=== PATIENT | female | born 1945 | race Caucasian/White ===

== ENCOUNTER → 2019-08-21 15:05 | Outpatient (BNVA) | payer MEDICARE, SELFPAY | PROVIDERS: PCP Family Medicine; Visit Provider Family Medicine | DX: F32.1 Major depressive disorder, single episode, moderate (principal); E11.9 Type 2 diabetes mellitus without complications; I10 Essential (primary) hypertension; F41.9 Anxiety disorder, unspecified | CPT/HCPCS: 80053; 80061; 83036; 84443; 85025 ==

== ENCOUNTER → 2019-12-25 11:34 | Outpatient (BNVA) | payer MEDICARE, SELFPAY | PROVIDERS: PCP Family Medicine; Visit Provider Family Medicine | DX: E78.5 Hyperlipidemia, unspecified (principal); I10 Essential (primary) hypertension; E11.9 Type 2 diabetes mellitus without complications | CPT/HCPCS: 80053; 80061; 83036; 84443; 85025 ==

== ENCOUNTER 2020-02-18 13:33 | Outpatient (CLI) | payer MEDICARE, SELFPAY | END 2020-02-18 13:34 | disposition home or self-care (01) | LOC: WOUND 13:36 | PROVIDERS: PCP Family Medicine; Visit Provider Thoracic Surgery (Cardiothoracic Vascular Surgery) | DX: E11.621 Type 2 diabetes mellitus with foot ulcer (principal); L97.429 Non-pressure chronic ulcer of left heel and midfoot with unspecified severity | CPT/HCPCS: 99203; G0463; L3260; L4397 ==

== ENCOUNTER 2020-02-25 09:20 | Outpatient (CLI) | payer MEDICARE, SELFPAY ==
--- NOTE | 2020-02-25 09:30 | USCV_ITS ---
Elizabeth Lima Age: 74 Gender: F : 1945 Exam Date: 02/25/2020 10:06 Ordering Phys: Rolan Spain MD (Andy) ([email or web address]) Technologist: Aide Laurent Exam Location: [facility] [place] Indication: pain, redness, non healing ulcer Risk Factors: Previous Vascular Surgery: RIGHT LEFT BP: 187.0 / BP: 157.0/ 0 0 Waveform Velocity (cm/s) Velocity (cm/s) Waveform Triphasic 93.1 Iliac Prox 144.0 Triphasic Triphasic 79.7 Iliac Mid 176.2 Triphasic Triphasic 94.2 Iliac Distal 157.8 Triphasic Triphasic 124.9 HANDICRAFT OR HOBBY SHOP MANAGER 129.5 Triphasic Triphasic 70.9 SFA Prox 154.7 Triphasic Triphasic 323.4 SFA Mid 115.0 Triphasic Biphasic 66.7 SFA Dist 76.0 Triphasic Biphasic 51.8 POP 53.2 Triphasic Monophasic 15.0 SLATE SPLITTING SUPERVISOR N/A Monophasic 21.8 DPA 48.9 Monophasic 0.1 JUAN 0.3 FINDINGS Abnormal resting ABIs bilaterally No Doppler flow signals in the left posterior tibial artery. Elevated velocity at the level of the mid SFA on the right side, suggestive of greater than 70% stenosis Moderate to heavy heterogeneous plaques in the iliac and femoral arteries bilaterally CONCLUSIONS Abnormal resting ABIs bilaterally, consistent with the severe obstructive arterial disease bilaterally, in the range of resting claudication. Features of high-grade stenosis of greater than 70% at the level of the right mid SFA Features of total occlusion of the posterior tibial artery on the left side Dr Tanna Dickson MD [facility] (Electronically Signed) Final Date: 26 February 2020 08:45 S
--- NOTE | 2020-02-25 09:30 | XRR_ITS ---
PROCEDURE INFORMATION: Exam: XR Left Foot Complete Exam date and time: 02/25/2020 9:47 AM Age: 74 years old Clinical indication: Condition or disease; Other: Non healing ulcer; Additional info: Pain/redness/non healing ulcer/attn: Calcaneous TECHNIQUE: Imaging protocol: XR Left foot. Views: 3 or more views. COMPARISON: No relevant prior studies available. FINDINGS: Bones/joints: Hindfoot -midfoot and midfoot-forefoot articulations normal. Metatarsals and phalanges without an acute process. Subtalar and tibiotalar joint normal. degenerative changes at the first metatarsal phalangeal joint. Spur formation at the insertion of the Achilles' tendon and plantar aponeurosis. Soft tissues: Normal. XR/XR foot LT min 3V* [id number] IMPRESSION: 1. No discrete evidence of osteomyelitis. Consider MRI if indicated. 2. Spur formation at the insertion of the Achilles' tendon and plantar aponeurosis.
== END 2020-02-25 09:21 | disposition home or self-care (01) ==
LOC: RAD 09:24
PROVIDERS: PCP Family Medicine; Visit Provider Thoracic Surgery (Cardiothoracic Vascular Surgery)
DX: M79.672 Pain in left foot (principal); L97.529 Non-pressure chronic ulcer of other part of left foot with unspecified severity
CPT/HCPCS: 73630; 93925

== ENCOUNTER 2020-02-25 13:46 | Outpatient (CLI) | payer MEDICARE, SELFPAY | END 2020-02-25 13:47 | disposition home or self-care (01) | LOC: WOUND 13:47 | PROVIDERS: PCP Family Medicine; Visit Provider Thoracic Surgery (Cardiothoracic Vascular Surgery) | DX: E11.621 Type 2 diabetes mellitus with foot ulcer (principal); L97.422 Non-pressure chronic ulcer of left heel and midfoot with fat layer exposed; M79.672 Pain in left foot; L97.529 Non-pressure chronic ulcer of other part of left foot with unspecified severity | CPT/HCPCS: 73630; 93925; L2999 ==

== ENCOUNTER 2020-03-03 10:38 | Outpatient (CLI) | payer MEDICARE, SELFPAY | END 2020-03-03 10:39 | disposition home or self-care (01) | LOC: WOUND 10:39 | PROVIDERS: PCP Family Medicine; Visit Provider Thoracic Surgery (Cardiothoracic Vascular Surgery) | DX: E11.621 Type 2 diabetes mellitus with foot ulcer (principal); L97.422 Non-pressure chronic ulcer of left heel and midfoot with fat layer exposed | CPT/HCPCS: G0463; L3260 ==

== ENCOUNTER 2020-03-10 13:11 | Outpatient (CLI) | payer MEDICARE, SELFPAY | END 2020-03-10 13:12 | disposition home or self-care (01) | LOC: WOUND 13:12 | PROVIDERS: PCP Family Medicine; Visit Provider Thoracic Surgery (Cardiothoracic Vascular Surgery) | DX: E11.621 Type 2 diabetes mellitus with foot ulcer (principal); L97.422 Non-pressure chronic ulcer of left heel and midfoot with fat layer exposed | CPT/HCPCS: G0463 ==

== ENCOUNTER → 2020-03-13 10:46 | Outpatient (BNVA) | payer MEDICARE, SELFPAY | PROVIDERS: PCP Family Medicine; Visit Provider Internal Medicine | DX: Z20.828 Contact with and (suspected) exposure to other viral communicable diseases (principal) | CPT/HCPCS: 87635 ==

== ENCOUNTER 2020-03-17 13:00 | Observation (INO) | payer MEDICARE, SELFPAY ==
[2020-03-13 14:50] LABS: Basophils # 0.1 10^3/uL (0.0-0.1); Basophils % 0.9 %; Eosinophils # 0.3 10^3/uL (0.0-0.8); Eosinophils % 3.7 %; Hematocrit 32.9 % (37.0-47.0); Hemoglobin 10.6 g/dL (11.5-15.3); Lymphocytes # 1.6 10^3/uL (0.8-4.8); Lymphocytes % 17.6 %; Mean Corpuscular HGB Conc 32.2 g/dL (30.0-36.0); Mean Corpuscular Hemoglobin 28.6 pg (28.0-34.0); Mean Corpuscular Volume 88.9 fL (81-99); Mean Platelet Volume 10.7 fL (7.4-10.4); Monocytes # 0.5 10^3/uL (0.2-0.9); Monocytes % 5.3 %; Neutrophils # 6.56 10^3/uL (1.8-7.7); Neutrophils % 72.2 %; Nucleated Red Blood Cells % 0 %; Platelet Count 235 10^3/cmm (130-400); Red Cell Distribution Width 12.6 % (12.1-15.1); White Blood Count 9.1 10^3/uL (4.0-10.0)
[2020-03-13 15:07] LABS: INR 0.98 (0.8-1.2)
[2020-03-13 15:26] LABS: Anion Gap 13.2 (5-19); Blood Urea Nitrogen 27 mg/dL (8-23); Calcium 9.6 mg/dL (8.5-10.5); Carbon Dioxide 26 mmol/L (22-29); Chloride 97 mmol/L (98-107); Glucose 278 mg/dL (65-115); NT Pro B Type Natriuretic Pept 1200 pg/mL (0-450); Osmolality Calculated 281 mOsm/kg (285-295); Potassium 4.2 mmol/L (3.5-5.1); Sodium 132 mmol/L (136-145)
[2020-03-17] VITALS (36 sets, daily range): BP systolic 115–209; BP diastolic 46–92; PULSE 52–74; RESP 7–21; TEMP 36.9–37.1; O2SAT 92–98; BMI 27.3
--- NOTE | 2020-03-17 09:00 | XACV_ITS ---
Wt: 59 kg BSA: 1.58 m2 Any Known Allergies: Other Gender: Female : 1945 Exam Type: Invasive Peripheral Vascular Procedure(s): Procedure Description: Peripheral Cath Diagnostic Procedure Procedure Description: Abdominal aortic angiography Procedure Description: Lower extremities' angiography Procedure Description: Peripheral vascular Intervention Procedure Description: PV Balloon Procedure Description: PV Atherectomy Exam Priority: Routine Lower Extremity Interventional Findings Right common femoral artery approach was adopted. Long sheath was placed. After somewhat difficulty with Glidewire and seeker we were able to cross the proximal to mid SFA of the right leg. Viper wire was exchanged through seeker. 2.0 bur of CSI atherectomy device was used to modify the calcium of the left SFA. Center 5x200 balloon was used for balloon angioplasty. Excellent angiographic result in left SFA was achieved. Good one-vessel runoff to left foot was noted. Peroneal and posterior tibial arteries are known to be occluded. Conclusions Reason for peripheral angiogram/intervention: Critical limb ischemia of the left footAbdominal aortogram: Abdominal aorta has luminal irregularity without significant aneurysm. Right renal artery has proximal 50% stenosis left renal artery is normal.Bilateral common iliac, external and internal iliac has luminal irregularitiesBilateral common femoral artery has luminal irregularitiesBilateral profunda has luminal irregularitiesLeft SFA has proximal to mid highly calcified tandem tight moderate to severe stenosis. Right SFA has mid tight highly calcified moderate to severe stenosis rest of the vessel luminal irregularitiesBilateral popliteal and tibioperoneal trunk has luminal irregularitiesBilateral single-vessel runoff noted with chronic occlusion of peroneal and posterior tibial arteries. Hemodynamic Data Phase:Rest AO : 157.0 mmHg / 61.0 mmHg ( 98.0 mmHg ) @ 7:04:00 AM 123.0 mmHg / 54.0 mmHg ( 80.0 mmHg ) @ 7:11:00 AM 203.0 mmHg / 72.0 mmHg ( 119.0 mmHg ) @ 7:41:00 AM Access Site Site: Right Femoral artery Sheath Size: 6 Fr Hemost... Method: Suture Hemost... Success: Successful Procedure Details Findings Pre-Procedure Time Out. Identified patient by full name and date of as verbalized by the patient/guarantor. Does the consent match the physician's order: Yes. Accurate & Complete Informed Consent: Yes. Inpatient/Outpatient History & Physical on Chart: Yes. If H&P is completed, is and addenduem needed: No; If yes, is the addendum complete: N/A. Visualize and Verify Site with Patient/Guarantor: N/A. Relevant Radiology Images available: N/A. Pre-op teaching completed and patient verbalized understanding. The risks, benefits, and alternatives of sedation and/or procedure were discussed by physician. The patient agrees to continue. Procedure started. Correct patient, site and procedure confirmed by cath team. PERRLA. Strong, equal hand laboratory sample carrier bilaterally. Lungs clear x 5 lobes. IV Site on Arrival: 20 gauge in the left anticubital. IV Fluids: 0.9% NaCl at KVO. 0 mL infused prior to laboratory chemist. Pre Procedural Pulses: left dorsalis pedis was Doppled. Pre Procedural Pulses: right dorsalis pedis was 2+. Pre Procedural Pulses: left posterior tibial was Doppled. Pre Procedural Pulses: right posterior tibial was 1+. Pre Procedural Pulses: bilateral radial was 3+. Oxygen started at 2liters/min via nasal canula. bilateral groins was prepped with chloroprep then draped in the usual sterile fashion. Baseline sample Acquired. HR: 72 BPM. Equipment: Peripheral. Cardiac Cath Pack. ACIST Manifold Kit Model BT 2000. Heparinized Saline (2 units/mL), 1000 mL bag. Physician notified. Physician arrived. Physician scrubbed in. Time out performed with cath team. Lidocaine 1% infiltrated to the right groin. Arterial access obtained with micropuncture set. A CORDIS 5F UF catheter 65cm was advanced over the wire and used for Abdominal aortogram with runoff. Abdominal aortogram performed in AP @ 10 mL/sec for a total of 30 mL. Glidewire inserted. Catheter out. Short 6 fr sheath exchanged for long 45 cm 6 fr Flexor sheath. Left leg runoff through sheath 10 ml for total of 30 ml. SEEKER support catheter inserted over glidewire. Glidewire out. VIPER wire inserted.. SEEKER support catheter removed over VIPER wire. 2.00 Diamondback Atherectomy device inserted over VIPER wire into left SFA. Orbital atherectomy performed in left SFA. Atherectomy device removed over VIPER wire. SEEKER catheter inserted. VIPER wire out. SEEKER catheter out over glidewire. Inflation number : 1 A AB Center 35 KA[address] KOHANGA REO Catheter [id number] was prepped and advanced across the Superficial Femoral, Left , then inflated to 8 FLOWER for 1:19 seconds. Inflation number: 1 The AB Center 35 [address] [place]AN[place] REO Catheter [id number] was reinflated across the Superficial Femoral, Left, to 8 FLOWER for 1:02 seconds. Balloon out. Left leg runoff 10 ml for total of 30 ml. Long 45cm 6 fr flexor sheath exchanged for short 6 fr sheath. Right leg runoff through sheath 10 ml for total of 30 ml. Physician scrubbed out. A Suture was successful obtaining hemostatsis at the Right Femoral artery insertion site. Sheath(s) sutured into position with 2-0 silk and sterile 4x4's and Op-site applied over the site. No oozing or signs and symptoms of hematoma noted. Post Procedure: Pulses reassessed and unchanged. PERRLA. Strong, equal hand laboratory sample carrier bilaterally. No VTE prophylaxis required. Medication's Wasted: Lidocaine 1% = 2 mL. Medication's Wasted: Heparin = 4000 units. Medication's Wasted: Nitro = 49.6 mg. Medication's Wasted: Other = fentanyl 75 mcg. Total IV fluids: 75 mL. Contrast type used: Visipaque 320 mgI/mL, 500 mL bottle. Post-op diagnosis: critical limb ischemia, severe PVD. Complications: none. Estimated blood loss: 5mL-10mL. Procedure completed. Patient transferred by bed to 1st floor. Vital chart was stopped. Procedure Medications Start: 11:55 AM Stop: 11:55 AM Medication: Versed Amount: 1 mg Route: I.V. Start: 11:55 AM Stop: 11:55 AM Medication: Fentanyl Amount: 50 mcg Route: I.V. Start: 12:10 PM Stop: 12:10 PM Medication: Heparin Amount: 3000 units Route: I.V. Start: 12:20 PM Stop: 12:20 PM Medication: Versed Amount: 1 mg Route: I.V. Start: 12:24 PM Stop: 12:24 PM Medication: Heparin Amount: 2000 units Route: I.V. Start: 12:38 PM Stop: 12:38 PM Medication: Nitrogylcerin Amount: 400 mcg Start: 12:42 PM Stop: 12:42 PM Medication: Hydralazine Amount: 10 mg Route: I.V. I, the attending physician, have reviewed and verified all procedure medications. Yes, all medications given per verbal order History/Risk Factors Hypertension: Yes Dyslipidemia: No Diabetic Therapy: Oral Peripheral Arterial Disease (PAD): Yes Myocardial Infarction (SC): No Obesity: No Renal Disease: No Tobacco Use: Never Prior Interventions PCI: No CABG: No Valve Surgery: No Report Signatures Finalized by:Jin Steele MD on 03/31/2020 6:24:41 PM
[2020-03-17] MEDS: sodium chloride 0.9% 1,000 ML 50 ML IV (09:50)
[2020-03-17] MEDS: diphenhydrAMINE 50 mg Capsule PO (09:50)
--- NOTE | 2020-03-17 11:32 | P.HPUD_ITS ---
Surgery/Procedure H&P Update DATE OF PROCEDURE: March 17, 2020 DATE H&P PERFORMED: 02/26/20 H&P UPDATE INFORMATION: I have reviewed H&P completed within last 30 days, I have examined patient prior to procedure and Changes to prior documentation as noted here CHANGES TO PREVIOUS DOCUMENTATION: 74-year-old female past medical history significant for diabetes mellitus, hypertension hyperlipidemia who has been referred to us from wound clinic by Dr. Spain for nonhealing left foot ulcer. Patient underwent ABIs which showed severe peripheral vascular disease as defined below in the range of resting claudication. ABIs are consistent with critical limb ischemia. Due to nonhealing ulcer patient was recommended to undergo peripheral angiogram. Today she is here for that reason. Patient has been explained all risk benefit and alternative for the procedure. We will proceed with the procedure today. She denies any resting pain in the right leg. She has absent pulses bilaterally. FINDINGS Abnormal resting ABIs bilaterally No Doppler flow signals in the left posterior tibial artery. Elevated velocity at the level of the mid SFA on the right side, suggestive of greater than 70% stenosis Moderate to heavy heterogeneous plaques in the iliac and femoral arteries bilaterally CONCLUSIONS Abnormal resting ABIs bilaterally, consistent with the severe obstructive arterial disease bilaterally, in the range of resting claudication. Features of high-grade stenosis of greater than 70% at the level of the right mid SFA Features of total occlusion of the posterior tibial artery on the left side Dr Tanna Dickson MD [facility] (Electronically Signed) Final Date: 26 February 2020 08:45 PREOP DIAGNOSIS: Critical limb ischemia of left foot with nonhealing ulcer PLANNED PROCEDURE: Operation Date: 03/17/20 10:00 Proposed Procedures p Peripheral Diagnostic(Not Applicable) - Jin Steele MD PATIENT REASSESSED PRIOR TO SEDATION, WITH NO CHANGE NOTED: Yes PHYSICAL EXAM: alert, oriented x 3, clear to auscultation bilaterally and regular rate & rhythm AIRWAY EVAL/ANESTHESIA PLAN: ASA II, Risks, benefits & alternatives of sedation and/or procedure discussed and Patient agrees to continue as planned
--- NOTE | 2020-03-17 13:10 | PC.NURSE ---
Received patient to unit. Right groin sheath in place. Site not observed, but dressing dry & intact. Palpable pedal pulses. Patient is drowsy and awakens easily.
[2020-03-17] MEDS: lisinopril 10 mg Tablet PO (13:57)
[2020-03-17] MEDS: clopidogrel 300 mg Tablet PO (13:57)
[2020-03-17] MEDS: nitroglycerin 1 gm/inch oint Pkt 1 INCH TOPICAL (13:57)
--- NOTE | 2020-03-17 14:14 | PC.NURSE ---
Places patient on ortho/surgical bedpan. Patient urinated 380 ml.
--- NOTE | 2020-03-17 14:43 | PC.NURSE ---
call placed to Dr valentino due to patient having nausea no answer at that this time will try again and give dry crackers
[2020-03-17] MEDS: atorvastatin 40 mg Tablet 20 MG PO (14:52)
[2020-03-17] MEDS: ondansetron 2 mg/ML SDV 2 mL 4 MG IVP (15:06)
[2020-03-17 15:53] LABS: Partial Thromboplastin Time 69.3 SECONDS (23.9-36.7)
--- NOTE | 2020-03-17 16:00 | PC.NURSE ---
Reported PTT results to Dr. Steele. Verbal order to recheck PTT in one hour.
[2020-03-17 17:36] LABS: Partial Thromboplastin Time 33.6 SECONDS (23.9-36.7)
--- NOTE | 2020-03-17 18:22 | PC.NURSE ---
sheath pulled after ptt is <45 sheath removed without incident, pressure held for 20 min until homeostasis achieved patient tolerated well v/s stable throughout
[2020-03-18] VITALS: BP 137/55; PULSE 65; RESP 13; O2SAT 94
[2020-03-18] MEDS: ALPRAZolam 0.25 mg Tablet PO (00:13)
--- NOTE | 2020-03-18 00:23 | PC.NURSE ---
Patient up to ambulate to bathroom with minimal contact assist. Patient dressing to right groin remains c,d,i with no s/s of bleeding or hematoma formation observed.
--- NOTE | 2020-03-18 09:30 | PC.NURSE ---
Patient ddeclined scheduled 0900 medicines . She states she takes thzoloft, cholesterol med and ariane inhibitor at night at home and not in the morning.
[2020-03-18 10:20] VITALS: PULSE 72; O2SAT 92
--- NOTE | 2020-03-18 10:43 | PC.CHAP ---
Pastoral Care Encounter/Spiritual Assessment Type of Contact [] Declined credit collections rep visit [] Patient/Family/Request visit [] Outpatient visit [] Follow-up visit [] Physician referral [] Code/Alert [x] Routine visit [] Staff referral [] Actively dying [] Patient sleeping [] Family support [] [] Out of room [] Palliative care [] [] Receiving care in room [] Pre-surgical visit [] Trauma [] Long length of stay [] ICU visit [] Other: Relational/Emotional Strength [] Patient feels connected with others/family/visitors/staff [] Distress [] Loneliness/isolation [] Abandonment Spirituality of Patient [] Person of Niyah [] Attends Judaism of their Niyah [] Believes in Prayer [] Reads Bible or Yazidi materials [] There are Spiritual issues to be addressed Non Destructive Testing Scientist Interventions [x] Prayer [x] Active listening [x] Non-anxious presence [x Spiritual/emotional support [] Crisis/trauma care [] Spiritual counseling [] Bereavement support [] Provided bereavement packet [] Provided Bible/devotional materials [] Provided toy/stuffed animal, coloring book to patient or family member [] Provided Communion [] Anointing/Butler [] Salvation [x] Completed spiritual assessment [] Other: Impact on Illness or Injury [] Angry [] Fearful [] Anxious [] Often cries [] Exhaustion [] Unable to work [] Unable to attend samaritan [] Unable to walk/stand [] Unable to read [] Unable to drive [] Unable to eat/drink [] Unable to sleep [] Unable to be with family [] Patient intubated [] Other: Summary patient resting Time spent with patient 5 min
--- NOTE | 2020-03-18 12:07 | PC.NURSE ---
Assisted patient to dress. Contacted patient's grand daughter to arrange transportattion home.
[2020-03-18 12:09] VITALS: BP 135/55; PULSE 72; O2SAT 92
--- NOTE | 2020-03-18 21:08 | P.DS_ITS ---
Discharge Providers Date of Admission: 03/17/20 13:00 Date of Discharge: March 18, 2020 Attending Provider at Admission: Jin Steele MD Attending Provider at Discharge: Jin Steele MD Primary Care Provider: Crystal Olivia MD Reason for Visit Reason for Visit: CRITICAL LIMB ISCHEMIA Hospital Course Discharge Summary: 74-year-old female past medical history significant for hypertension, diabetes mellitus underwent peripheral angiogram for critical limb ischemia nonhealing left foot ulcer. She was found to have highly calcified mid to distal 80 to 90% tentatively stenotic left SFA it was difficult to cross with a wire. CSI atherectomy followed by balloon angioplasty was performed. One- vessel runoff was established up to the foot. Good angiographic result was achieved. Overnight patient reports no complication. Right groin looks good. Her left foot has good anterior tibial palpable pulse. She is being discharged home. She will be follow-up in cardiology clinic in 7 days and with wound care on usual basis. Advise Plavix for 1 month. Physical Exam Narrative: EXAM NARRATIVE: GENERAL: Patient is alert, awake and oriented x3. NECK: No jugular vein distension. HEENT: No cyanosis. No icterus. No pallor. HEART: Regular S1 and S2. No murmur, rub or gallop. LUNGS: Clear to auscultate bilaterally. ABDOMEN: Soft, nontender and nondistended. Positive bowel sounds. No guarding, rebound or tenderness. CENTRAL NERVOUS SYSTEM: Grossly nonfocal. EXTREMITIES: Lower extremities without edema bilaterally. Right groin without hematoma, left foot wrapped in the gauze and bandage. Left foot is warm moist pinkish in color good palpable anterior tibial pulses noted. 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 Routin e Exams 03/17/20 09:00 Taken Vitals: Last Vital Signs Temp 98.7 F 03/17/20 19:30 Pulse 72 03/18/20 12:09 Resp 13 03/18/20 00:00 BP 135/55 03/18/20 12:09 Pulse Ox 92 03/18/20 12:09 Discharge Plan Discharge Patient Disposition: Home Condition: Stable Prescriptions: New clopidogrel 75 mg tablet 75 mg PO DAILY Qty: 30 RF: 0 Continued atorvastatin [Lipitor] 10 mg tablet 10 mg PO QDAY Qty: 90 RF: 1 glipizide 5 mg tablet 5 mg PO BID Qty: 180 RF: 1 sertraline [Zoloft] 50 mg tablet 50 mg PO DAILY 90 Days Qty: 90 RF: 1 ramipril 10 mg capsule 10 mg PO DAILY RF: 0 Discharge Orders: Discharge Order (Routine); Ordered 03/18/20 Ordered By: Jin Steele Referrals: Jin Steele MD [Physician] - (You have an follow-up appointment appointment with Dr. Steele on at 4:00p.m. If you have any questions or need reschedule. Please call ) Ema Fu FNP [Nurse Practitioner] - (You have an follow-up appointment with Ema Fu on with check-in at 1:30p.m. If you have any questions or need reschedule. Please call ) [facility], [Staff Physician] - (Please, keep your appointment at the Wound Clinic on . ) Discharge Diet: Low Cholesterol Discharge Activity: Increase activity as tolerated Patient Instructions: Clopidogrel (By mouth), Peripheral Vascular Angioplasty (DC) Activity Restrictions/Additional Instructions: Follow-up with wound care. Follow-up with Ema Fu in 7 days. Follow-up with Dr. Steele in 6 to 8 weeks. Discharge Date/Time: 03/18/20 12:40 Discharge Attestations Time Spent in Discharge Care*: less than 30 min Quality Metrics Clinical Quality Measures During this hospital stay, did patient experience: None Coding Level of Care Code Established Pt Acute Developing Machine Operator for Chg Fwd Patient Type Established History Expanded Problem Focused Exam Expanded Problem Focused Medical Decision Making Moderate Complexity
== END 2020-03-18 12:40 | disposition home or self-care (01) ==
LOC: CSU 03-18 06:45
PROVIDERS: Admitting Provider Internal Medicine Cardiovascular Disease; PCP Family Medicine; Visit Provider Internal Medicine Cardiovascular Disease
DX: I70.92 Chronic total occlusion of artery of the extremities (principal); I70.1 Atherosclerosis of renal artery; I73.9 Peripheral vascular disease, unspecified; I10 Essential (primary) hypertension; E11.621 Type 2 diabetes mellitus with foot ulcer; E78.5 Hyperlipidemia, unspecified; Z79.84 Long term (current) use of oral hypoglycemic drugs
CPT/HCPCS: 12345; 36415; 37225; 75625; 75716; 80048; 82565; 83880; 85025; 85610; 85730; 96375; C1724; C1725; C1769; C1887; C1894; G0378; J0360; J1644; J2250; J2405; J3010; J3490; J7030; Q0163; Q9967

== ENCOUNTER 2020-03-25 10:43 | Outpatient (CLI) | payer MEDICARE, SELFPAY | END 2020-03-25 10:44 | disposition home or self-care (01) | LOC: WOUND 10:43 | PROVIDERS: PCP Family Medicine; Visit Provider Nurse Practitioner Family | DX: E11.621 Type 2 diabetes mellitus with foot ulcer (principal); L97.422 Non-pressure chronic ulcer of left heel and midfoot with fat layer exposed | CPT/HCPCS: G0463 ==

== ENCOUNTER → 2020-03-26 13:57 | Outpatient (BNVA) | payer MEDICARE, SELFPAY | PROVIDERS: PCP Family Medicine; Visit Provider Nurse Practitioner Family | DX: I73.9 Peripheral vascular disease, unspecified (principal) | CPT/HCPCS: 80048 ==

== ENCOUNTER 2020-03-31 13:07 | Outpatient (CLI) | payer MEDICARE, SELFPAY | END 2020-03-31 13:08 | disposition home or self-care (01) | LOC: WOUND 13:08 | PROVIDERS: PCP Family Medicine; Visit Provider Thoracic Surgery (Cardiothoracic Vascular Surgery) | DX: E11.621 Type 2 diabetes mellitus with foot ulcer (principal); L97.422 Non-pressure chronic ulcer of left heel and midfoot with fat layer exposed | CPT/HCPCS: 87635; G0463 ==

== ENCOUNTER 2020-04-03 05:48 | Day surgery (SDC) | payer MEDICARE, SELFPAY ==
[2020-04-02 12:22] VITALS: BMI 27.6
[2020-04-03 06:08] VITALS: BP 212/76; PULSE 62; RESP 18; TEMP 36.3; O2SAT 98
[2020-04-03] MEDS: sodium chloride 0.9% 1,000 ML 30 ML IV (06:18)
[2020-04-03 06:20] LABS: Glucose Point of Care 129 mg/dL (70-110)
[2020-04-03] MEDS: scopolamine 1.5 Patch 1 PATCH TRANSDERMA (06:20)
--- NOTE | 2020-04-03 06:33 | W.PM.OPSUD ---
Surgery/Procedure H&P Update DATE OF PROCEDURE: April 03, 2020 DATE H&P PERFORMED: 03/31/20 H&P UPDATE INFORMATION: I have reviewed H&P completed within last 30 days, I have examined patient prior to procedure, No changes to prior documentation and H&P is in [facility] EMR on date indicated CHANGES TO PREVIOUS DOCUMENTATION: No changes PREOP DIAGNOSIS: Left calcaneal wound debridement PRIMARY INDICATION FOR PROCEDURE: Eschar, full-thickness wound left calcaneus PLANNED PROCEDURE: Operation Date: 04/03/20 07:00 Proposed Procedures p Debridement heal left(Left) - Rolan Spain MD
[2020-04-03 06:38] LABS: Basophils # 0.1 10^3/uL (0.0-0.1); Basophils % 0.9 %; Eosinophils # 0.6 10^3/uL (0.0-0.8); Eosinophils % 5.3 %; Hematocrit 32.9 % (37.0-47.0); Hemoglobin 10.8 g/dL (11.5-15.3); Lymphocytes # 1.8 10^3/uL (0.8-4.8); Lymphocytes % 15.6 %; Mean Corpuscular HGB Conc 32.8 g/dL (30.0-36.0); Mean Corpuscular Hemoglobin 28.6 pg (28.0-34.0); Mean Corpuscular Volume 87.3 fL (81-99); Mean Platelet Volume 10.3 fL (7.4-10.4); Monocytes # 0.7 10^3/uL (0.2-0.9); Monocytes % 6.2 %; Neutrophils # 8.24 10^3/uL (1.8-7.7); Neutrophils % 71.7 %; Nucleated Red Blood Cells % 0 %; Platelet Count 332 10^3/cmm (130-400); Red Blood Count 3.77 10^6/uL (4.1-5.3); Red Cell Distribution Width 12.4 % (12.1-15.1); White Blood Count 11.5 10^3/uL (4.0-10.0)
[2020-04-03 06:52] LABS: Blood Urea Nitrogen 20 mg/dL (8-23); Calcium 9.3 mg/dL (8.5-10.5); Carbon Dioxide 27 mmol/L (22-29); Chloride 94 mmol/L (98-107); Glucose 132 mg/dL (65-115); Osmolality Calculated 268 mOsm/kg (285-295); Sodium 130 mmol/L (136-145)
[2020-04-03 06:54] LABS: Anion Gap 13.9 (5-19); Potassium 4.9 mmol/L (3.5-5.1)
--- NOTE | 2020-04-03 08:04 | P.ANESASSM_ITS ---
Pre-Anesthetic Assessment Pre-Anesthetic Assessment: Height/Weight: Height 1.47 m Weight 59.874 kg Temp Pulse Resp BP Pulse Ox 97.3 F L 62 18 212/76 98 04/03/20 06:08 04/03/20 06:08 04/03/20 06:08 04/03/20 06:08 04/03/20 06:08 Preop Diagnosis: Left calcaneal wound debridement Proposed Procedure: Operation Date: 04/03/20 07:00 Proposed Procedures p Debridement heal left(Left) - Rolan Spain MD Familial anesthetic complications: none Was Beta Joann taken within 24 hours: N/A Last intake: Intake Last Liquid Date 04/02/20 Last Liquid Time 19:30 Last Solid Date 04/02/20 Last Solid Time 16:00 Social: Social History: No alcohol and No tobacco Airway: Cervical ROM: WNL MP: 2 Dentition: False CV/HEM: CV/HEM: PVD Metabolic: Metabolic: DM Anesthetic Plan: ASA status: 2 Anesthesia: MAC Risk of > 500 ml blood loss (7ml/kg in children): No Meds/Allergies Current Medications: Current Medications Generic Name Dose Route Start Last Admin Trade Name Freq PRN Reason Stop Dose Admin Sodium Chloride 1,000 mls @ 30 ml s/hr 04/03/20 06:00 04/03/20 06:18 Sodium Chloride 0.9% IV 04/04/20 05:59 30 mls/hr .Q24H KIMBERLY Administration PFSH Anesthesia PFSH: Medical History Critical lower limb ischemia Diabetes mellitus Peripheral vascular disease Surgical History Hx of hysterectomy Family History Other Cancer Rheumatoid arthritis Social History Smoking and tobacco status: never smoked Alcohol intake: never Data Anesthesia CBC & Chem 7: 04/03/20 06:19 04/03/20 06:19 Other Labs: Laboratory Results - last 48 hr 04/03/20 04/03/20 04/03/20 06:17 06:19 06:19 WBC 11.5 H RBC 3.77 L Hgb 10.8 L Hct 32.9 L MCV 87.3 MCH 28.6 MCHC 32.8 RDW 12.4 Plt Count 332 MPV 10.3 Neut % (Auto) 71.7 Lymph % (Auto) 15.6 [place] % (Auto) 6.2 Eos % (Auto) 5.3 Baso % (Auto) 0.9 Neut # (Auto) 8.24 H Lymph # (Auto) 1.8 [place] # (Auto) 0.7 Eos # (Auto) 0.6 Baso # (Auto) 0.1 Nucleated RBC % (auto) 0 Nucleated RBCs # 0.0 Sodium 130 L Potassium 4.9 Chloride 94 L Carbon Dioxide 27 Anion Gap 13.9 BUN 20 Creatinine 1.4 H GFR Calculation Not Reportable Glucose 132 H POC Glucose 129 Calculated Osmolality 268 L Calcium 9.3 Cardiac Studies: No Data to Display
--- NOTE | 2020-04-03 08:22 | P.ANESASSM_ITS ---
Pre-Anesthetic Assessment Pre-Anesthetic Assessment: Height/Weight: Height 1.47 m Weight 59.874 kg Temp Pulse Resp BP Pulse Ox 97.3 F L 62 18 212/76 98 04/03/20 06:08 04/03/20 06:08 04/03/20 06:08 04/03/20 06:08 04/03/20 06:08 Preop Diagnosis: Left calcaneal wound debridement Proposed Procedure: Operation Date: 04/03/20 07:00 Proposed Procedures p Debridement heal left(Left) - Rolan Spain MD Was Beta Joann taken within 24 hours: N/A Last intake: Intake Last Liquid Date 04/02/20 Last Liquid Time 19:30 Last Solid Date 04/02/20 Last Solid Time 16:00 Social: Social History: No alcohol and No tobacco Exam: Pre-Anes Outpt Exam: alert, oriented x 3, clear to auscultation bilaterally and regular rate & rhythm (Holosystolic murmur left apex) Airway: Submandibular: WNL Cervical ROM: WNL MP: 2 Dentition: Full History/ROS: No significant history except as noted Pulmonary: Pulmonary: None reported CV/HEM: CV/HEM: None reported : Comments: Incontinent of urine Hepatic: Hepatic: None reported GI: GI: None reported Metabolic: Metabolic: DM Musc/skel: Musc/skel: None reported Neuropsych: Neuropsych: None reported Anesthetic Plan: ASA status: 3 Anesthesia: MAC Meds/Allergies Current Medications: Current Medications Generic Name Dose Route Start Last Admin Trade Name Freq PRN Reason Stop Dose Admin Sodium Chloride 1,000 mls @ 30 ml s/hr 04/03/20 06:00 04/03/20 06:18 Sodium Chloride 0.9% IV 04/04/20 05:59 30 mls/hr .Q24H KIMBERLY Administration PFSH Anesthesia PFSH: Medical History Critical lower limb ischemia Diabetes mellitus Peripheral vascular disease Surgical History Hx of hysterectomy Family History Other Cancer Rheumatoid arthritis Social History Smoking and tobacco status: never smoked Alcohol intake: never Data Anesthesia CBC & Chem 7: 04/03/20 06:19 04/03/20 06:19 Other Labs: Laboratory Results - last 48 hr 04/03/20 04/03/20 04/03/20 06:17 06:19 06:19 WBC 11.5 H RBC 3.77 L Hgb 10.8 L Hct 32.9 L MCV 87.3 MCH 28.6 MCHC 32.8 RDW 12.4 Plt Count 332 MPV 10.3 Neut % (Auto) 71.7 Lymph % (Auto) 15.6 [place] % (Auto) 6.2 Eos % (Auto) 5.3 Baso % (Auto) 0.9 Neut # (Auto) 8.24 H Lymph # (Auto) 1.8 [place] # (Auto) 0.7 Eos # (Auto) 0.6 Baso # (Auto) 0.1 Nucleated RBC % (auto) 0 Nucleated RBCs # 0.0 Sodium 130 L Potassium 4.9 Chloride 94 L Carbon Dioxide 27 Anion Gap 13.9 BUN 20 Creatinine 1.4 H GFR Calculation Not Reportable Glucose 132 H POC Glucose 129 Calculated Osmolality 268 L Calcium 9.3 Cardiac Studies: No Data to Display
[2020-04-03] MEDS: vancomycin 1,000 MG in sodium chloride 0.9% 250 ML 250 MG IV (08:44)
[2020-04-03] MEDS: vancomycin 1,000 MG SDV 1000 MG XX (09:05)
[2020-04-03 09:22] VITALS: BP 159/64; PULSE 70; RESP 18; TEMP 36.2; O2SAT 99
[2020-04-03] MEDS: HYDROcodone-acetaminophen 5-325 mg Tablet 1 TAB PO (09:30)
--- NOTE | 2020-04-03 09:31 | P.OP_ITS ---
Operative Report Date of procedure: April 03, 2020 Pre-op Diagnosis: Left calcaneal wound debridement Post-op diagnosis: same Procedure Done: Debridement of left calcaneal wound Specimens removed/disposition: None Surgeon: Rolan Spain Anesthesia: MAC Estimated blood loss (mL): 15 Complications: None Condition: stable Disposition: same day Brief History: 74-year-old female with a left calcaneal wound with thick eschar that was quite painful and could not be adequately debrided and [facility] wound care clinic. Operative debridement with anesthesia monitored sedation was rec ommended. Details and risk of procedure reviewed. Proper consents reviewed and signed. Procedure: Ms. Lima was taken to the operating room theater and carefully positioned. She underwent IV conscious sedation anesthesia monitoring. Her entire left foot and lower leg was sterilely prepped and draped. Utilizing a #10 scalpel blade, the thickened eschar over the calcaneal region was sharply debrided down to adipose tissue. Wound size measures 3.5 x 2 x 0.3 cm. Eschar removed intact. Minimal use of electrocautery was required. After debridement, wound was irrigated with antibiotic saline solution and wet-to-dry dressing applied. She tolerated procedure well was awakened from IV conscious sedation and taken to the outpatient surgery department in stable condition. I counseled the family at completion the procedure. She will receive daily wet-to-dry dressing changes. She will follow-up in wound care services on Monday.
[2020-04-03 09:39] VITALS: BP 194/71; PULSE 69; RESP 18; TEMP 36.2; O2SAT 98
[2020-04-03 10:02] VITALS: RESP 20
[2020-04-03] MEDS: HYDROmorphone 1 mg/mL INJ 1 mL 0.25 MG IVP (10:02)
[2020-04-03] MEDS: ondansetron 2 mg/ML SDV 2 mL 4 MG IVP (10:05)
[2020-04-03 10:11] VITALS: BP 204/76; PULSE 63; RESP 16; TEMP 36.2; O2SAT 98
== END 2020-04-03 11:00 | disposition home or self-care (01) ==
PROVIDERS: PCP Family Medicine; Visit Provider Thoracic Surgery (Cardiothoracic Vascular Surgery)
PROC: (CPT 11042; principal; 2020-04-03 07:00)
DX: E11.621 Type 2 diabetes mellitus with foot ulcer (principal); L97.422 Non-pressure chronic ulcer of left heel and midfoot with fat layer exposed; E11.51 Type 2 diabetes mellitus with diabetic peripheral angiopathy without gangrene
CPT/HCPCS: 11042; 12345; 36415; 36416; 80048; 82962; 85025; 96374; 96375; J1170; J2405; J3010; J3370; J7030; J7050

== ENCOUNTER 2020-04-14 13:54 | Outpatient (CLI) | payer MEDICARE, SELFPAY | END 2020-04-14 13:55 | disposition home or self-care (01) | LOC: WOUND 13:55 | PROVIDERS: PCP Family Medicine; Visit Provider Thoracic Surgery (Cardiothoracic Vascular Surgery) | DX: E11.621 Type 2 diabetes mellitus with foot ulcer (principal); L97.422 Non-pressure chronic ulcer of left heel and midfoot with fat layer exposed | CPT/HCPCS: 11042 ==

== ENCOUNTER 2020-05-05 13:34 | Outpatient (CLI) | payer MEDICARE, SELFPAY | END 2020-05-05 13:35 | disposition home or self-care (01) | LOC: WOUND 13:36 | PROVIDERS: PCP Family Medicine; Visit Provider Thoracic Surgery (Cardiothoracic Vascular Surgery) | DX: E11.621 Type 2 diabetes mellitus with foot ulcer (principal); L97.422 Non-pressure chronic ulcer of left heel and midfoot with fat layer exposed | CPT/HCPCS: 11042 ==

== ENCOUNTER 2020-05-19 13:11 | Outpatient (CLI) | payer MEDICARE, SELFPAY | END 2020-05-19 13:12 | disposition home or self-care (01) | LOC: WOUND 13:12 | PROVIDERS: PCP Family Medicine; Visit Provider Thoracic Surgery (Cardiothoracic Vascular Surgery) | DX: E11.621 Type 2 diabetes mellitus with foot ulcer (principal); L97.422 Non-pressure chronic ulcer of left heel and midfoot with fat layer exposed | CPT/HCPCS: 11042 ==

== ENCOUNTER 2020-06-02 13:22 | Outpatient (CLI) | payer MEDICARE, SELFPAY | END 2020-06-02 13:23 | disposition home or self-care (01) | LOC: WOUND 13:23 | PROVIDERS: PCP Family Medicine; Visit Provider Thoracic Surgery (Cardiothoracic Vascular Surgery) | DX: E11.621 Type 2 diabetes mellitus with foot ulcer (principal); L97.421 Non-pressure chronic ulcer of left heel and midfoot limited to breakdown of skin | CPT/HCPCS: 97597; E0191 ==

== ENCOUNTER 2020-06-09 13:42 | Outpatient (CLI) | payer MEDICARE, SELFPAY | END 2020-06-09 13:43 | disposition home or self-care (01) | LOC: WOUND 13:43 | PROVIDERS: PCP Family Medicine; Visit Provider Thoracic Surgery (Cardiothoracic Vascular Surgery) | DX: E11.621 Type 2 diabetes mellitus with foot ulcer (principal); L97.422 Non-pressure chronic ulcer of left heel and midfoot with fat layer exposed | CPT/HCPCS: 11042 ==

== ENCOUNTER 2020-06-16 13:01 | Outpatient (CLI) | payer MEDICARE, SELFPAY | END 2020-06-16 13:02 | disposition home or self-care (01) | LOC: WOUND 13:03 | PROVIDERS: PCP Family Medicine; Visit Provider Thoracic Surgery (Cardiothoracic Vascular Surgery) | DX: E11.621 Type 2 diabetes mellitus with foot ulcer (principal); L97.422 Non-pressure chronic ulcer of left heel and midfoot with fat layer exposed | CPT/HCPCS: 99212 ==

== ENCOUNTER 2020-07-07 10:59 | Outpatient (CLI) | payer MEDICARE, SELFPAY | END 2020-07-07 11:00 | disposition home or self-care (01) | LOC: WOUND 11:00 | PROVIDERS: PCP Family Medicine; Visit Provider Thoracic Surgery (Cardiothoracic Vascular Surgery) | DX: E11.621 Type 2 diabetes mellitus with foot ulcer (principal); L97.422 Non-pressure chronic ulcer of left heel and midfoot with fat layer exposed; L97.411 Non-pressure chronic ulcer of right heel and midfoot limited to breakdown of skin | CPT/HCPCS: 11042 ==

== ENCOUNTER 2020-07-14 10:34 | Outpatient (CLI) | payer MEDICARE, SELFPAY | END 2020-07-14 10:35 | disposition home or self-care (01) | LOC: WOUND 10:35 | PROVIDERS: PCP Family Medicine; Visit Provider Thoracic Surgery (Cardiothoracic Vascular Surgery) | DX: E11.621 Type 2 diabetes mellitus with foot ulcer (principal); L97.422 Non-pressure chronic ulcer of left heel and midfoot with fat layer exposed; L97.411 Non-pressure chronic ulcer of right heel and midfoot limited to breakdown of skin | CPT/HCPCS: 11042 ==

== ENCOUNTER 2020-07-21 13:58 | Outpatient (CLI) | payer MEDICARE, SELFPAY | END 2020-07-21 13:59 | disposition home or self-care (01) | LOC: WOUND 13:59 | PROVIDERS: PCP Family Medicine; Visit Provider Thoracic Surgery (Cardiothoracic Vascular Surgery) | DX: E11.621 Type 2 diabetes mellitus with foot ulcer (principal); L97.422 Non-pressure chronic ulcer of left heel and midfoot with fat layer exposed; L97.411 Non-pressure chronic ulcer of right heel and midfoot limited to breakdown of skin | CPT/HCPCS: 11042; 87635 ==

== ENCOUNTER 2020-07-21 14:37 | Outpatient (CLI) | payer MEDICARE, SELFPAY ==
[2020-07-21 15:31] LABS: Basophils # 0.1 10^3/uL (0.0-0.1); Basophils % 0.8 %; Eosinophils # 0.4 10^3/uL (0.0-0.8); Eosinophils % 4.5 %; Hematocrit 26.7 % (37.0-47.0); Hemoglobin 8.9 g/dL (11.5-15.3); Lymphocytes # 1.7 10^3/uL (0.8-4.8); Lymphocytes % 17.9 %; Mean Corpuscular HGB Conc 33.3 g/dL (30.0-36.0); Mean Corpuscular Hemoglobin 29.1 pg (28.0-34.0); Mean Corpuscular Volume 87.3 fL (81-99); Mean Platelet Volume 9.6 fL (7.4-10.4); Monocytes # 0.6 10^3/uL (0.2-0.9); Neutrophils # 6.54 10^3/uL (1.8-7.7); Neutrophils % 70.6 %; Nucleated Red Blood Cells % 0 %; Platelet Count 309 10^3/cmm (130-400); Red Blood Count 3.06 10^6/uL (4.1-5.3); Red Cell Distribution Width 13.1 % (12.1-15.1); White Blood Count 9.3 10^3/uL (4.0-10.0)
[2020-07-21 16:16] LABS: Anion Gap 12.7 (5-19); Blood Urea Nitrogen 27 mg/dL (8-23); Calcium 9.3 mg/dL (8.5-10.5); Carbon Dioxide 25 mmol/L (22-29); Chloride 92 mmol/L (98-107); Glucose 118 mg/dL (65-115); NT Pro B Type Natriuretic Pept 21149 pg/mL (0-450); Osmolality Calculated 266 mOsm/kg (285-295); Potassium 4.7 mmol/L (3.5-5.1); Sodium 125 mmol/L (136-145)
== END 2020-07-21 14:38 | disposition home or self-care (01) ==
PROVIDERS: PCP Family Medicine; Visit Provider Internal Medicine Cardiovascular Disease
DX: Z01.812 Encounter for preprocedural laboratory examination (principal)
CPT/HCPCS: 36415; 80048; 83880; 85025

== ENCOUNTER 2020-07-23 15:25 | Observation (INO) | payer MEDICARE, SELFPAY ==
[2020-07-23] VITALS (50 sets, daily range): BP systolic 167–199; BP diastolic 54–72; PULSE 62–81; RESP 11–37; O2SAT 86–98; BMI 27.6
--- NOTE | 2020-07-23 15:45 | PC.NURSE ---
direct admission came via wheelchair. was escorted to room where she ambulated to sit on the bed. patient was then placed in a gown and hooked up to telemetry and vitals taken. admission was done. Home medications were verified and Dr. Steele notified of them. Iv started in Left forearm. Patient sitting on the side of the bed resting at this time. call light within reach.
[2020-07-23] MEDS: sodium chloride 0.9% 1,000 ML 150 ML IV ×2 (16:51→23:35)
--- NOTE | 2020-07-23 17:09 | PM.HP ---
Providers/Chief Complaint Admitting Physician: Jin Steele MD Primary Care Provider: Crystal lOivia MD Chief Complaint: pre op hydration History of Present Illness Elizabeth Lima is a 74 year old female Patient for nonhealing right foot calcaneus wound managed by Dr. Spain in the wound care patient has history of severely depressed JUAN on the right side and diffuse disease of SFA along with below very sluggish flow with possible nearly 1 vessel it was not also well-visualized during last angiogram. For nonhealing right calcaneus ulcer it was suggested that we should proceed with revascularization. Patient baseline creatinine is less than 1.4 however it was 1.7 on 3 dental laboratory supervisor tests. It is the reason patient was called into the hospital and advised to be IV rehydrated we have given the stress to postpone and do it later but she thinks she is in a lot of pain in her wound is getting worse therefore she would like to get it done early. She otherwise denies PND orthopnea fever chills nausea vomiting diarrhea. Her Covid test is negative. Review of Systems Skin/Breast: Reports: surgical incision Medications/Allergies Home Medications Medication Instructions Recorded Confirmed Last Taken Type aspirin 81 mg tablet,delayed 81 mg PO BEDTIME 04/30/20 07/23/20 07/22/20 21:00 History release atorvastatin 10 mg PO BEDTIME 07/23/20 07/23/20 07/22/20 21:00 History gabapentin 200 mg PO BID 07/23/20 07/23/20 07/23/20 10:30 History valsartan 160 mg PO BEDTIME 07/23/20 07/23/20 07/22/20 21:00 History Allergies Allergy/AdvReac Type Severity Reaction Status Date / Time diclofenac [From Voltaren] Allergy Intermediate Wound Verified 06/18/20 13:48 metformin Allergy ADR-Diarrhe Verified 06/18/20 13:48 a mold Allergy Unknown Verified 06/18/20 13:48 PFSH Acute PFSH: Medical History (Updated 07/23/20 @ 18:24 by Jin Steele MD) CKD (chronic kidney disease) stage 3, GFR 30-59 ml/min Critical lower limb ischemia Diabetes mellitus Peripheral vascular disease Surgical History Hx of hysterectomy Family History Other Cancer Rheumatoid arthritis Social History Smoking and tobacco status: never smoked Alcohol intake: never Vitals/I&O/Wt Weight last 48 hrs Weight 132 lb 8 oz Physical Exam Narrative: EXAM NARRATIVE: GENERAL: Patient is alert, awake and oriented x3. NECK: No jugular vein distension. HEENT: No cyanosis. No icterus. No pallor. HEART: Regular S1 and S2. No murmur, rub or gallop. LUNGS: Clear to auscultate bilaterally. ABDOMEN: Soft, nontender and nondistended. Positive bowel sounds. No guarding, rebound or tenderness. CENTRAL NERVOUS SYSTEM: Grossly nonfocal. EXTREMITIES: Lower extremities without edema bilaterally. Pulses palpable not palpable, wound bilaterally on the calcaneus A&P Assessment and plan (1) Critical lower limb ischemia: Patient continues to have critical limb ischemia with nonhealing right foot ulcer. It is the reason she will be scheduled for peripheral angiogram. Her creatinine is 1.7 baseline is less than 1.4 she will be admitted today to the hospital for IV hydration. I have discussed with the patient that it is possible we have to postpone the procedure if creatinine is not at her normal. Status: Acute (2) Essential hypertension: Moderately elevated we will start patient on valsartan which is her home medicine. We will continue to monitor Status: Acute (3) Diabetes mellitus: Sliding scale insulin will be started Status: Acute Qualifiers: Diabetes mellitus type: type 2 Diabetes mellitus care home insulin use: without extermination supervisor use Diabetes mellitus complication status: without complication Qualified Code(s): E11.9 - Type 2 diabetes mellitus without complications (4) CKD (chronic kidney disease) stage 3, GFR 30-59 ml/min: IV fluid normal saline at 150 mL/h for next 10 to 12 hours recheck Chem-7 in the morning. Status: Acute Qualifiers: Chronic kidney disease stage 3 subtype: stage 3a (GFR 45-59) Qualified Code(s): N18.31 - Chronic kidney disease, stage 3a Attestations Medical Necessity Statement*: I am expecting her stay to cross more than 2 midnights. 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
[2020-07-23] MEDS: gabapentin 100 mg Capsule 200 MG PO (18:40)
--- NOTE | 2020-07-23 18:51 | PC.NURSE ---
[address] valentino for further orders and to clarify written orders. Instructions given to start home medications per instructions on home medication bottles and start normal saline at 150mls per hour for pre procedure hydration.
[2020-07-23 20:13] LABS: Glucose Point of Care 137 mg/dL (70-110)
[2020-07-23] MEDS: aspirin 81 mg EC Tablet PO (22:55)
--- NOTE | 2020-07-23 22:56 | PC.NURSE ---
PT RESTING IN BED. OPTIFOAM WAS PLACED ON PT LEFT HEEL. PT STATES THAT THE BOTTOM OF FEET FEELS LIKE PINS AND NEEDLES. PT WISHES NOT TO RATE PAIN. MEDS WERE GIVEN ON TIME. I DON'T KNOW WHY IT DIDN'T SAVE IN THE COMPUTER. WILL CONTINUE TO MONITOR.
[2020-07-24 03:00] VITALS: BP 177/86; PULSE 84; RESP 17; TEMP 36.8; O2SAT 90
--- NOTE | 2020-07-24 05:17 | PC.NURSE ---
PT HAD AN UNEVENTFUL NIGHT. PT RESTING IN BED WAITING FOR CATH LATER TODAY. PT DENIES PAIN. WILL CONTINUE TO MONITOR.
[2020-07-24] MEDS: sodium chloride 0.9% 1,000 ML 150 ML IV (05:23)
[2020-07-24 06:01] LABS: Anion Gap 11.6 (5-19); Blood Urea Nitrogen 27 mg/dL (8-23); Calcium 8.2 mg/dL (8.5-10.5); Carbon Dioxide 25 mmol/L (22-29); Chloride 98 mmol/L (98-107); Glucose 128 mg/dL (65-115); Osmolality Calculated 277 mOsm/kg (285-295); Potassium 4.6 mmol/L (3.5-5.1); Sodium 130 mmol/L (136-145)
[2020-07-24 06:32] LABS: Glucose Point of Care 117 mg/dL (70-110)
[2020-07-24] MEDS: gabapentin 100 mg Capsule 200 MG PO (08:52)
[2020-07-24 09:01] VITALS: BP 163/69; PULSE 78; RESP 23
--- NOTE | 2020-07-24 09:05 | PC.CHAP ---
Pastoral Care Encounter/Spiritual Assessment Type of Contact [] Declined hvac sheet metal installer visit [] Patient/Family/Request visit [] Outpatient visit [] Follow-up visit [] Physician referral [] Code/Alert [x] Routine visit [] Staff referral [] Actively dying [] Patient sleeping [] Family support [] [] Out of room [] Palliative care [] [] Receiving care in room [] Pre-surgical visit [] Trauma [] Long length of stay [] ICU visit [] Other: Relational/Emotional Strength [] Patient feels connected with others/family/visitors/staff [] Distress [] Loneliness/isolation [] Abandonment Spirituality of Patient [] Person of Niyah [] Attends Sikhism of their Niyah [] Believes in Prayer [] Reads Bible or Gnosticist materials [] There are Spiritual issues to be addressed Ear Flap Binder Interventions [x] Prayer [x] Active listening [x] Non-anxious presence [x] Spiritual/emotional support [] Crisis/trauma care [] Spiritual counseling [] Bereavement support [] Provided bereavement packet [] Provided Bible/devotional materials [] Provided toy/stuffed animal, coloring book to patient or family member [] Provided Communion [] Anointing/[place] [] Salvation [x] Completed spiritual assessment [] Other: Impact on Illness or Injury [] Angry [] Fearful [] Anxious [] Often cries [] Exhaustion [] Unable to work [] Unable to attend yazidi [] Unable to walk/stand [] Unable to read [] Unable to drive [] Unable to eat/drink [] Unable to sleep [] Unable to be with family [] Patient intubated [] Other: Summary patient had niyah and scientologist questions.. prayed for Rach, a friend with hip replacement.. prayed for granddaughter ready for additional tests today .. requested continual prayer.. Time spent with patient 25 min
--- NOTE | 2020-07-24 09:12 | P.DS_ITS ---
Discharge Providers Date of Admission: 07/23/20 15:25 Date of Discharge: July 24, 2020 Attending Provider at Admission: Jin Steele MD Attending Provider at Discharge: Jin Steele MD Primary Care Provider: Crystal Olivia MD Diagnoses at Discharge Discharge Diagnosis (1) Critical lower limb ischemia: Status: Acute (2) Essential hypertension: Status: Acute (3) Diabetes mellitus: Status: Acute Qualifiers: Diabetes mellitus complication status: without complication Diabetes mellitus terminologist insulin use: without correction use Diabetes mellitus type: type 2 Qualified Code(s): E11.9 - Type 2 diabetes mellitus without complications (4) CKD (chronic kidney disease) stage 3, GFR 30-59 ml/min: Status: Acute Qualifiers: Chronic kidney disease stage 3 subtype: stage 3a (GFR 45-59) Qualified Code(s): N18.31 - Chronic kidney disease, stage 3a Reason for Visit Reason for Visit: pre op hydration Hospital Course Hospital Course Patient was admitted to the hospital for IV hydration before peripheral angiogram for critical limb ischemia her baseline creatinine hangs around 1.4. Creatinine at the time of admission was 1.7 she was given IV fluid overnight despite of that her creatinine has not improved therefore we deferred the procedure for few days. Patient at the moment denies any complaint bleeding chest pain shortness of breath PND orthopnea. Patient has been advised to recheck Chem-7 in 3 to 4 days as we will reschedule her for next 2 weeks Physical Exam Narrative: EXAM NARRATIVE: GENERAL: Patient is alert, awake and oriented x3. NECK: No jugular vein distension. HEENT: No cyanosis. No icterus. No pallor. HEART: Regular S1 and S2. No murmur, rub or gallop. LUNGS: Clear to auscultate bilaterally. ABDOMEN: Soft, nontender and nondistended. Positive bowel sounds. No guarding, rebound or tenderness. CENTRAL NERVOUS SYSTEM: Grossly nonfocal. EXTREMITIES: Lower extremities without edema bilaterally. Pulses palpable not palpable, wound bilaterally on the calcaneus Discharge Data Data Completed and Pending: Pending at discharge Category Date Time Status Basic Metabolic P kishor Routine Lab 07/24/20 17:32 Ordered Labs from last 24 hours 07/24/20 07/24/20 07/23/20 06:28 04:48 20:10 Sodium 130 L Potassium 4.6 Chloride 98 Carbon Dioxide 25 Anion Gap 11.6 BUN 27 H Creatinine 1.7 H GFR Calculation Not Reportable Glucose 128 H POC Glucose 117 137 Calculated Osmolal ity 277 L Calcium 8.2 L Vitals: Last Vital Signs Temp 98.3 F 07/24/20 03:00 Pulse 78 07/24/20 09:01 Resp 23 H 07/24/20 09:01 BP 163/69 07/24/20 09:01 Pulse Ox 90 07/24/20 03:00 Discharge Plan Discharge Patient Disposition: Home Condition: Stable Prescriptions: New carvedilol [Coreg] 3.125 mg tablet 3.125 mg PO BID Qty: 60 RF: 3 amlodipine 5 mg tablet 5 mg PO DAILY Qty: 30 RF: 4 Continued aspirin [Adult Aspirin Regimen] 81 mg tablet,delayed release (DR/EC) 81 mg PO BEDTIME RF: 0 atorvastatin 10 mg tablet 10 mg PO BEDTIME RF: 0 gabapentin 100 mg capsule 200 mg PO BID RF: 0 Discontinued valsartan 160 mg tablet 160 mg PO BEDTIME RF: 0 No Action valsartan 160 mg tablet 160 mg PO DAILY RF: 0 Discharge Orders: Discharge Order (Routine); Ordered 07/24/20 Ordered By: Jin Steele Referrals: Ema Fu FNP [Nurse Practitioner] - 7-10 days (You have a follow up appointment with Ema Fu on August 04, 2020 with a check in time of 1:45pm. If you need to reschedule this appointment please give them a call at [phone].) Discharge Diet: Diabetic and Low Salt Patient Instructions: Chronic Kidney Disease (DC), Peripheral Vascular Disorders (DC) Activity Restrictions/Additional Instructions: Follow-up with Ema Fu in 7 to 10 days, draw Chem-7 in 7 to 10 days when patient visit Ema Fu. We will discuss option for peripheral angiogram after reviewing her kidney function. Discharge Attestations Time Spent in Discharge Care*: less than 30 min Specific Discharge Activities: educating patient Quality Metrics Clinical Quality Measures During this hospital stay, did patient experience: None Coding Level of Care Code Established Pt Acute Transplant Nurse Practitioner for [facility] Patient Type Established History Expanded Problem Focused Exam Expanded Problem Focused Medical Decision Making Moderate Complexity Diagnoses Critical lower limb ischemia I99.8 Essential hypertension I10 Diabetes mellitus E11.9 Diabetes mellitus complication status: without complication Diabetes mellitus correction insulin use: without terminologist use Diabetes mellitus type: type 2 CKD (chronic kidney disease) stage 3, GFR 30-59 ml/min N18.31 Chronic kidney disease stage 3 subtype: stage 3a (GFR 45-59)
[2020-07-24 11:00] VITALS: BP 163/69; PULSE 78; RESP 23; O2SAT 98
--- NOTE | 2020-07-24 11:49 | PC.NURSE ---
discharge instructions given, all questions were answered at this time. patient discharge instructions were placed in the discharge folder. Home medications were placed in bag from the med room. patient had all of her personal belongs in the wheelchair with her when she was escorted to the exit where her son picked her up in a private vehicle.
== END 2020-07-24 11:51 | disposition home or self-care (01) ==
PROVIDERS: Admitting Provider Internal Medicine Cardiovascular Disease; PCP Family Medicine; Visit Provider Internal Medicine Cardiovascular Disease
DX: I99.8 Other disorder of circulatory system (principal); Z53.9 Procedure and treatment not carried out, unspecified reason; Z79.4 Long term (current) use of insulin; E11.22 Type 2 diabetes mellitus with diabetic chronic kidney disease; I12.9 Hypertensive chronic kidney disease with stage 1 through stage 4 chronic kidney disease, or unspecified chronic kidney disease; N18.31 Chronic kidney disease, stage 3a; E11.621 Type 2 diabetes mellitus with foot ulcer; Z79.82 Long term (current) use of aspirin
CPT/HCPCS: 12345; 36415; 36416; 80048; 82962; 96360; 96361; G0378; G0379; J7030

== ENCOUNTER 2020-07-25 06:12 | Inpatient (IN) | payer MEDICARE, SELFPAY ==
[2020-07-25] VITALS (133 sets, daily range): BP systolic 80–224; BP diastolic 42–120; PULSE 50–106; RESP 14–26; TEMP 35.8–36.9; O2SAT 83–100; BMI 25.4
[2020-07-25] MEDS: propofol 1,000 MG/100 ML INJ 20 MG IV (06:20)
[2020-07-25 06:22] LABS: ABG PCO2 60.1 mmHg (35-45); Arterial Blood Gas Hematocrit 30.9 % (37-47); Base Excess ABG -6.3 mmol/L (-2.0-2.0); Blood Gas Allen Test Pos; Blood Gas Operator Identificat HARKR; Blood Gas Sample Site Radial, right; Blood Gas Sample Type Arterial; Carboxyhemoglobin 0.7 %THgb (0.4-20.1); HCO3 ABG 22.3 mmol/L (22-26); HGB O2 Sat 93.2 % (95-100); Ionized Calcium Level - ABG 1.2 mmol/L (1.1-1.4); Oxygen Device NRB; Oxygen Saturation ABG 94.8; PO2 ABG 86.2 mmHg (80.0-100.0); Potassium Level - ABG 4.6 mmol/L (3.5-5.0); Total Hemoglobin 10.1 g/dL (12-16)
[2020-07-25] MEDS: succinylcholine 20 mg/mL SDV 10mL 90 MG IVP (06:22)
--- NOTE | 2020-07-25 06:23 | PC.NURSE ---
Assist with intubation. Dr Smart and respiratory therapy present. 7.5 ET tube placed, 22 at the gums, secured with tube ortiz. Bilateral breath sounds present
--- NOTE | 2020-07-25 06:37 | XRR_ITS ---
PROCEDURE INFORMATION: Exam: XR Chest, 1 View Exam date and time: 07/25/2020 6:39 AM Age: 74 years old Clinical indication: Device placement; Ett placement (vent status); Additional info: Resp arrest TECHNIQUE: Imaging protocol: XR of the chest Views: 1 view. COMPARISON: No relevant prior studies available. FINDINGS: Tubes, catheters and devices: An endotracheal tube is present in satisfactory position. Lungs: There are diffuse interstitial infiltrates in the right lung with patchy right basilar consolidation. Mild diffuse interstitial infiltrate is present in the left lung with subsegmental left basilar atelectasis. Pleural space: There is small right pleural effusion. No pneumothorax is seen. Heart/Mediastinum: Unremarkable. No cardiomegaly. Bones/joints: Unremarkable. XR/XR chest 1V portable [id number] IMPRESSION: 1. Satisfactory endotracheal tube position. 2. Bilateral interstitial pulmonary infiltrates especially in the right lung with small right pleural effusion. This could be due to heart failure with interstitial pulmonary edema. An interstitial pneumonitis possibly viral cannot be excluded.
--- NOTE | 2020-07-25 06:37 | ECG_ITS ---
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 Measurements Intervals [place] Rate: 83 P: 40 VT: 162 QRS: -41 QRSD: 104 T: 92 QT: 385 QTc: 453 Interpretive Statements SINUS RHYTHM POSSIBLE LEFT ATRIAL ENLARGEMENT [-0.1mV P WAVE IN V1/V2] LEFT AXIS DEVIATION [QRS AXIS < -30] LEFT VENTRICULAR HYPERTROPHY AND ST-T CHANGE [VOLTAGE CRITERIA PLUS ST/T ABNORMALITY] POSSIBLE ANTERIOR MYOCARDIAL INFARCTION , OF INDETERMINATE AGE No previous ECG available for comparison Electronically Signed On 07-25-2020 8:36:34 PHYSICAL EDUCATION AIDE by Kristy Faye M.D. [email or web address]
--- NOTE | 2020-07-25 06:41 | ED_ITS ---
HPI - General Adult General: Chief complaint: Shortness of Breath/Dyspnea Stated complaint: resp distress Time Seen by Provider: 07/25/20 06:31 History of Present Illness: HPI narrative: 74-year-old female arrived via EMS. She is on 15 L by nasal cannula is in severe respiratory distress she has a history of diabetes mellitus hypertension hyperlipidemia peripheral vascular disease peripheral artery disease stage III kidney disease. On arrival her respiratory rate was in the mid 20s she is gasping for breath. She was still oriented enough to indicate she did want to be a full code. She was emergently intubated immediately after arrival. Report from EMS is that she had respiratory distress. Patient was recently hospitalized on 1216 and dismissed on 1217. Her creatinine had gone up she has a chronic right heel ulcer which they were going to try to do a peripheral angiogram to see what her lower extremity arterial flow would show to see if improving that would improve her wound outcome. Because of her renal disease and worsening kidney function it does not appear as if the angiogram was done but it is not clear from the discharge summary at this time. Initially there is no family available to discuss her case with us. Patient had a Covid PCR swab on 07/21 that was negative. Onset (ago): hour(s) Relieving factors: none Exacerbating factors: none Associated symptoms: Reports dyspnea, short of breath and weakness Treatments prior to arrival: other (Oxygen) Review of Systems General: Reports: ROS unobtainable due to medical condition Resp: Reports: dyspnea [facility] ED PFSH: Medical History CKD (chronic kidney disease) stage 3, GFR 30-59 ml/min Critical lower limb ischemia Diabetes mellitus Peripheral vascular disease Surgical History Hx of hysterectomy Family History Other Cancer Rheumatoid arthritis Social History Smoking and tobacco status: never smoked Alcohol intake: never Physical Exam HENMT: COMMON NORMALS: normocephalic and atraumatic HEAD & SCALP: normocephalic and atraumatic Neck/C-Spine: COMMON NORMALS: no JVD Resp: EFFORT & INSPECTION: Yes decreased respiratory effort, Yes labored, Yes grunting, Yes retractions, Yes uses accessory muscles and Yes audible wheezes AUSCULTATION: wheezes and breath sounds absent on the right (lower half) Cardio: COMMON NORMALS: no JVD, regular rhythm and No murmurs present (Cardio) RATE: tachycardic RHYTHM: regular rhythm GI: COMMON NORMALS: Soft to palpation and No hepatosplenomegaly present AUSCULTATION: Yes normoactive bowel sounds PALPATION: Yes Soft to palpation, No Tenderness to palpation present (GI), No Guarding due to palpation present (GI) and Yes No hepatosplenomegaly present Extremity: COMMON NORMALS: normal to inspection, capillary refill normal, no clubbing, cyanosis or edema, no calf tenderness and no pedal edema Skin: COMMON NORMALS: no rashes or lesions noted GENERAL SKIN EXAM: no rashes or lesions noted Procedures Intubation Time out performed: Yes sedative: Etomidate paralytic: Succinylcholine Laryngoscope: fiber optic video scope Assist Device Used: fiber optic device ET Tube Size: 8 ET Tube Uncuffed: No Tube Secured Depth (cm): 22 Tube Secured Location: teeth Tube Placement Confirmation: visualized tube passing through cords, equal breath sounds bilaterally and no breath sounds over epigastrium Patient Tolerated Procedure: well Intubation Complications: none Course Vital Signs: Vital signs: Vital Signs Temperature 98.1 F 07/25/20 12:30 Pulse Rate 61 07/25/20 13:30 Respiratory Rate 14 07/25/20 13:30 Blood Pressure 134/65 07/25/20 13:30 Pulse Oximetry 98 07/25/20 13:30 MDM - General Adult MDM Narrative: Medical decision making narrative: Intubated on arrival due to impending respiratory failure. Patient started on antibiotics she recently was tested for Covid with a PCR earlier this week which was negative she has an antigen test today which was also negative. Will start on IV antibiotics for pneumonia also fluids for acute renal failure and hyperkalemia and discussed with hospitalist will admit to the ICU. Lab Data: Labs: Lab Results 07/25/20 07/25/20 07/25/20 Range/Units 06:11 06:37 06:37 WBC 20.1 H (4.0-10.0) 10^3/ uL RBC 3.12 L (4.1-5.3) 10^6/u L Hgb 9.0 L (11.5-15.3) g/dL Hct 28.4 L (37.0-47.0) % MCV 91.0 (81-99) fL MCH 28.8 (28.0-34.0) pg MCHC 31.7 (30.0-36.0) g/dL RDW 13.1 (12.1-15.1) % Plt Count 402 H (130-400) 10^3/c mm MPV 10.4 (7.4-10.4) fL Neut % (Auto) 83.3 % Lymph % (Auto) 10.5 % [place] % (Auto) 3.2 % Eos % (Auto) 1.8 % Baso % (Auto) 0.9 % Neut # (Auto) 16.72 H (1.8-7.7) 10^3/u L Lymph # (Auto) 2.1 (0.8-4.8) 10^3/u L [place] # (Auto) 0.7 (0.2-0.9) 10^3/u L Eos # (Auto) 0.4 (0.0-0.8) 10^3/u L Baso # (Auto) 0.2 H (0.0-0.1) 10^3/u L Nucleated RBC % (a uto) 0 % Nucleated RBCs # 0.0 /100WBC D-Dimer 2.33 H (0-0.59) ug/mIFE U Specimen Type Arterial Sample Site Radial, right ABG pH 7.18 L* (7.35-7.45) ABG pCO2 60.1 H (35-45) mmHg ABG pO2 86.2 (80.0-100.0) mmH g ABG HCO3 22.3 (22-26) mmol/L ABG O2 Saturation 94.8 ABG Base Excess -6.3 L (-2.0-2.0) mmol/ L Jaren Test Pos A-a O2 Gradient Not Reportable Hematocrit 30.9 L (37-47) % Hgb O2 Saturation 93.2 L (95-100) % Carboxyhemoglobin 0.7 (0.4-20.1) %THgb Methemoglobin 1.0 (0.4-1.5) % Total Hemoglobin 10.1 L (12-16) g/dL Sodium 130.0 L (131-143) mmol/L Potassium 4.6 (3.5-5.0) mmol/L Glucose 278.0 H (70-115) mg/dL Ionized Calcium 1.2 (1.1-1.4) mmol/L O2 Delivery Device Nrb O2 Liters/Min 15.0 % Mechanical Rate FiO2 % Tidal Volume PEEP cmH20 Director Of Corporate Sponsorships ID Harkr Chloride (98-107) mmol/L Carbon Dioxide (22-29) mmol/L Anion Gap (5-19) BUN (8-23) mg/dL Creatinine (0.5-0.9) mg/dL GFR Calculation Calculated Osmolal ity (285-295) mOsm/k g Lactic Acid (0.5-2.2) mmol/L Calcium (8.5-10.5) mg/dL Total Bilirubin (0.15-1.2) mg/dL AST (0-32) U/L ALT (0-33) U/L Alkaline Phosphata se (35-105) IU/L Lactate Dehydrogen ase (135-214) U/L Creatine Kinase (26-192) U/L Troponin T Baselin e (0-10) ng/L Troponin T 120 Min grand traverse (0-10) ng/L Delta Troponin T (0-10) ABS# C-Reactive Protein (0.0-4.9) mg/L NT-Pro-B Natriuret Pep (0-450) pg/mL Total Protein (6.6-8.7) g/dL Albumin (3.5-5.2) g/dL Globulin (1.3-4.6) g/dL SARS-CoV-2 Ag (Rap id) (Negative) 07/25/20 07/25/20 07/25/20 Range/Units 06:37 06:37 06:37 WBC (4.0-10.0) 10^3/ uL RBC (4.1-5.3) 10^6/u L Hgb (11.5-15.3) g/dL Hct (37.0-47.0) % MCV (81-99) fL MCH (28.0-34.0) pg MCHC (30.0-36.0) g/dL RDW (12.1-15.1) % Plt Count (130-400) 10^3/c mm MPV (7.4-10.4) fL Neut % (Auto) % Lymph % (Auto) % [place] % (Auto) % Eos % (Auto) % Baso % (Auto) % Neut # (Auto) (1.8-7.7) 10^3/u L Lymph # (Auto) (0.8-4.8) 10^3/u L [place] # (Auto) (0.2-0.9) 10^3/u L Eos # (Auto) (0.0-0.8) 10^3/u L Baso # (Auto) (0.0-0.1) 10^3/u L Nucleated RBC % (a uto) % Nucleated RBCs # /100WBC D-Dimer (0-0.59) ug/mIFE U Specimen Type Sample Site ABG pH (7.35-7.45) ABG pCO2 (35-45) mmHg ABG pO2 (80.0-100.0) mmH g ABG HCO3 (22-26) mmol/L ABG O2 Saturation ABG Base Excess (-2.0-2.0) mmol/ L Jaren Test A-a O2 Gradient Hematocrit (37-47) % Hgb O2 Saturation (95-100) % Carboxyhemoglobin (0.4-20.1) %THgb Methemoglobin (0.4-1.5) % Total Hemoglobin (12-16) g/dL Sodium 130 L (131-143) mmol/L Potassium 5.2 H (3.5-5.0) mmol/L Glucose 239 H (70-115) mg/dL Ionized Calcium (1.1-1.4) mmol/L O2 Delivery Device O2 Liters/Min % Mechanical Rate FiO2 % Tidal Volume PEEP cmH20 Director Of Corporate Sponsorships ID Chloride 97 L (98-107) mmol/L Carbon Dioxide 22 (22-29) mmol/L Anion Gap 16.2 (5-19) BUN 28 H (8-23) mg/dL Creatinine 1.7 H (0.5-0.9) mg/dL GFR Calculation Not Reportable Calculated Osmolal ity 283 L (285-295) mOsm/k g Lactic Acid 2.0 (0.5-2.2) mmol/L Calcium 8.5 (8.5-10.5) mg/dL Total Bilirubin 0.2 (0.15-1.2) mg/dL AST 23 (0-32) U/L ALT 15 (0-33) U/L Alkaline Phosphata se 75 (35-105) IU/L Lactate Dehydrogen ase 289 H (135-214) U/L Creatine Kinase 85 (26-192) U/L Troponin T Baselin e 101 H* (0-10) ng/L Troponin T 120 Min grand traverse (0-10) ng/L Delta Troponin T (0-10) ABS# C-Reactive Protein 2.8 (0.0-4.9) mg/L NT-Pro-B Natriuret Pep 21795 H (0-450) pg/mL Total Protein 6.5 L (6.6-8.7) g/dL Albumin 3.7 (3.5-5.2) g/dL Globulin 2.8 (1.3-4.6) g/dL SARS-CoV-2 Ag (Rap id) (Negative) 07/25/20 07/25/20 07/25/20 Range/Units 06:49 08:30 08:48 WBC (4.0-10.0) 10^3/ uL RBC (4.1-5.3) 10^6/u L Hgb (11.5-15.3) g/dL Hct (37.0-47.0) % MCV (81-99) fL MCH (28.0-34.0) pg MCHC (30.0-36.0) g/dL RDW (12.1-15.1) % Plt Count (130-400) 10^3/c mm MPV (7.4-10.4) fL Neut % (Auto) % Lymph % (Auto) % [place] % (Auto) % Eos % (Auto) % Baso % (Auto) % Neut # (Auto) (1.8-7.7) 10^3/u L Lymph # (Auto) (0.8-4.8) 10^3/u L [place] # (Auto) (0.2-0.9) 10^3/u L Eos # (Auto) (0.0-0.8) 10^3/u L Baso # (Auto) (0.0-0.1) 10^3/u L Nucleated RBC % (a uto) % Nucleated RBCs # /100WBC D-Dimer (0-0.59) ug/mIFE U Specimen Type Arterial Sample Site Brachial, left ABG pH 7.34 L (7.35-7.45) ABG pCO2 38.8 (35-45) mmHg ABG pO2 318.0 H (80.0-100.0) mmH g ABG HCO3 20.9 L (22-26) mmol/L ABG O2 Saturation ABG Base Excess -4.5 L (-2.0-2.0) mmol/ L Jaren Test N/a A-a O2 Gradient Hematocrit 26.1 L (37-47) % Hgb O2 Saturation (95-100) % Carboxyhemoglobin (0.4-20.1) %THgb Methemoglobin (0.4-1.5) % Total Hemoglobin (12-16) g/dL Sodium (131-143) mmol/L Potassium (3.5-5.0) mmol/L Glucose (70-115) mg/dL Ionized Calcium (1.1-1.4) mmol/L O2 Delivery Device Vent O2 Liters/Min % Mechanical Rate 16.0 FiO2 100.0 % Tidal Volume 0.35 PEEP 8.0 cmH20 Director Of Corporate Sponsorships ID Gd Chloride (98-107) mmol/L Carbon Dioxide (22-29) mmol/L Anion Gap (5-19) BUN (8-23) mg/dL Creatinine (0.5-0.9) mg/dL GFR Calculation Calculated Osmolal ity (285-295) mOsm/k g Lactic Acid (0.5-2.2) mmol/L Calcium (8.5-10.5) mg/dL Total Bilirubin (0.15-1.2) mg/dL AST (0-32) U/L ALT (0-33) U/L Alkaline Phosphata se (35-105) IU/L Lactate Dehydrogen ase (135-214) U/L Creatine Kinase (26-192) U/L Troponin T Baselin e (0-10) ng/L Troponin T 120 Min grand traverse 347.0 H (0-10) ng/L Delta Troponin T 246.0 H* (0-10) ABS# C-Reactive Protein (0.0-4.9) mg/L NT-Pro-B Natriuret Pep (0-450) pg/mL Total Protein (6.6-8.7) g/dL Albumin (3.5-5.2) g/dL Globulin (1.3-4.6) g/dL SARS-CoV-2 Ag (Rap id) Negative (Negative) Discharge Plan Discharge Patient Disposition: Admitted As Inpatient Admit Provider: Darrell Gregory Clinical Impression: Acute respiratory failure, Diabetic ulcer of heel, Critical lower limb ischemia, Diabetes mellitus, Peripheral vascular disease, CKD (chronic kidney disease) stage 3, GFR 30-59 ml/min, Pneumonia Condition: Stable Coding Level of Care Code ED Speech Clinician for Chg Fwd Exam Detailed
[2020-07-25 06:58] LABS: Basophils # 0.2 10^3/uL (0.0-0.1); Basophils % 0.9 %; Eosinophils # 0.4 10^3/uL (0.0-0.8); Eosinophils % 1.8 %; Hematocrit 28.4 % (37.0-47.0); Lymphocytes # 2.1 10^3/uL (0.8-4.8); Lymphocytes % 10.5 %; Mean Corpuscular HGB Conc 31.7 g/dL (30.0-36.0); Mean Corpuscular Hemoglobin 28.8 pg (28.0-34.0); Mean Platelet Volume 10.4 fL (7.4-10.4); Monocytes # 0.7 10^3/uL (0.2-0.9); Monocytes % 3.2 %; Neutrophils # 16.72 10^3/uL (1.8-7.7); Neutrophils % 83.3 %; Nucleated Red Blood Cells % 0 %; Platelet Count 402 10^3/cmm (130-400); Red Blood Count 3.12 10^6/uL (4.1-5.3); Red Cell Distribution Width 13.1 % (12.1-15.1); White Blood Count 20.1 10^3/uL (4.0-10.0)
[2020-07-25 08:00] LABS: Alanine Aminotransferase 15 U/L (0-33); Albumin Level 3.7 g/dL (3.5-5.2); Alkaline Phosphatase 75 IU/L (35-105); Aspartate Amino Transferase 23 U/L (0-32); Blood Urea Nitrogen 28 mg/dL (8-23); C Reactive Protein 2.8 mg/L (0.0-4.9); Calcium 8.5 mg/dL (8.5-10.5); Carbon Dioxide 22 mmol/L (22-29); Chloride 97 mmol/L (98-107); Creatine Phosphokinase 85 U/L (26-192); Globulin 2.8 g/dL (1.3-4.6); Glucose 239 mg/dL (65-115); NT Pro B Type Natriuretic Pept 11757 pg/mL (0-450); Osmolality Calculated 283 mOsm/kg (285-295); Sodium 130 mmol/L (136-145); Total Bilirubin 0.2 mg/dL (0.15-1.2); Total Protein 6.5 g/dL (6.6-8.7)
[2020-07-25] MEDS: dexamethasone 4 mg/mL INJ 6 MG IVP (08:00)
[2020-07-25] MEDS: levofloxacin-dextrose 5 % 750 MG/150 ML PREMIX 100 MG IV (08:10)
[2020-07-25 08:16] LABS: Troponin(5th) Baseline 101 ng/L (0-10)
[2020-07-25 08:17] LABS: Anion Gap 16.2 (5-19); Potassium 5.2 mmol/L (3.5-5.1)
[2020-07-25 08:18] LABS: Lactate Dehydrogenase 289 U/L (135-214)
[2020-07-25] MEDS: FUROsemide 10 mg/mL SDV 4mL 40 MG IVP ×3 (08:30→17:30)
--- NOTE | 2020-07-25 08:37 | ECG_ITS ---
[facility] Test Date: 2020-07-25 Pat Name: Elizabeth Lima Department: Room: Gender: Female Electrolytic De Scaler: : 1945 Requested By: Adan Marsh Order Number: [id number] Jose Cruz MD: Kristy Faye M.D. Measurements Intervals [place] Rate: 59 P: 31 MO: 150 QRS: -36 QRSD: 112 T: -22 QT: 504 QTc: 500 Interpretive Statements SINUS BRADYCARDIA LEFT AXIS DEVIATION [QRS AXIS < -30] LEFT VENTRICULAR HYPERTROPHY AND ST-T CHANGE [VOLTAGE CRITERIA PLUS ST/T ABNORMALITY] Compared to ECG 07/25/2020 06:28:33 Sinus rhythm no longer present Myocardial infarct finding no longer present ST (T wave) deviation still present Electronically Signed On 07-25-2020 8:40:59 PROCUREMENT INTERN by Kristy Faye M.D. [email or web address] [email or web address] Networksmercy health clermont hospital.[email or web address]/store/[id number]
[2020-07-25 08:46] LABS: SARS Covid-2 Antigen Negative (Negative)
[2020-07-25 08:48] LABS: ABG PCO2 38.8 mmHg (35-45); ABG PH Result 7.34 (7.35-7.45); Arterial Blood Gas Hematocrit 26.1 % (37-47); Base Excess ABG -4.5 mmol/L (-2.0-2.0); Blood Gas Operator Identificat GD; Blood Gas Sample Site Brachial, left; Blood Gas Sample Type Arterial; HCO3 ABG 20.9 mmol/L (22-26); Oxygen Device VENT
[2020-07-25 08:49] LABS: Blood Gas Tidal Volume 0.35
[2020-07-25 09:11] LABS: ABG PH Result 7.18 (7.35-7.45)
[2020-07-25] MEDS: DOPamine drip 400 MG/250 ML PREMIX 11.1 MG IV (09:27)
--- NOTE | 2020-07-25 11:02 | PC.NURSE ---
To ICU 1040 via stretcher accompanied by ER and RT staff. PT on vent, sedated, VSS.
[2020-07-25 11:25] LABS: D Dimer 2.33 ug/mIFEU (0-0.59)
[2020-07-25] MEDS: propofol 1,000 MG/100 ML INJ 35 MG IV (11:41)
--- NOTE | 2020-07-25 12:36 | PM.CONSULT ---
Providers/Reason For Consult Consulting Physican/Specialty*: Dr. Faye, cardiology Reason for Consult*: Shortness of breath, elevated troponin Attending Physician: Darrell Gregory Primary Care Provider: Crystal Olivia MD History of Present Illness History of Present Illness Elizabeth Lima is a 74 year old female with past medical history of peripheral vascular disease, hypertension, diabetes and chronic kidney disease stage III. She was recently hospitalized by Dr. Steele overnight from to 24 July before peripheral angiogram hydration. She has nonhealing right foot calcaneus wound managed by Dr. Spain in the wound care patient has history of severely depressed JAUN on the right side and diffuse disease of SFA along with below very sluggish flow with possible nearly 1 vessel it was not also well-visualized during last angiogram. Patient baseline creatinine is less than 1.4 however it was 1.7 before angiogram. In spite of hydration, her creatinine continued to be at 1.7 and hence the procedure was postponed and she was discharged home. She presented earlier this morning with shortness of breath, tachypnea and ended up getting intubated because of increased work of breathing. History was obtained mostly from ER records and from chart. Blood pressure on arrival was 222/120 mm Hg. ABG showed pH of 7.34 PCO2 of 38, PO2 of 318. FiO2 100% tidal volume 350 PEEP of 8. Labs on arrival showed BUN 27, creatinine 1.7, sodium 130, CO2 25. Baseline troponin T 101 and 2 hours it kelly to 347. CRP 2.8 and NT proBNP from of 21,149 and from this morning of 11,757. Nasal COVID-19 PCR negative from 21 July and rapid antigen negative from today. She received Lasix 40 mg IV x1 and Levaquin 750 mg IV as well as dexamethasone 6 mg IV x1 in ER. After intubation it seems like her blood pressure dropped to systolic of 80s and she was on dopamine drip briefly. At the time of evaluation patient is intubated and sedated. EKG on arrival showed sinus rhythm with possible left atrial enlargement. Left axis deviation. Left ventricular hypertrophy and ST-T wave changes secondary to that. No prior EKG to compare. Subsequent EKG at 8:25 AM [address] depression and T wave inversion in 1 aVL V[address] to V6. [address] depression is less pronounced on EKG at 12:45 PM and V4 to V6. There is no history of CAD mentioned in her chart and I do not have any prior echo or stress testing on her. Urine output 300 cc. Review of Systems General: Reports: ROS unobtainable due to endotracheal tube Meds/Allergies Home Medications and Allergies Home Medications Medication Instructions Recorded Confirmed Last Taken Type aspirin 81 mg tablet,delayed 81 mg PO BEDTIME 04/30/20 07/25/20 07/22/20 21:00 History release atorvastatin 10 mg PO BEDTIME 07/23/20 07/25/20 07/22/20 21:00 History gabapentin 200 mg PO BID 07/23/20 07/25/20 07/23/20 10:30 History amlodipine 5 mg PO DAILY #30 tab 07/24/20 07/25/20 Unknown Rx carvedilol [Coreg] 3.125 mg PO BID #60 tab 07/24/20 07/25/20 Unknown Rx valsartan 160 mg PO DAILY 07/25/20 07/25/20 Unknown History Allergies Allergy/AdvReac Type Severity Reaction Status Date / Time diclofenac [From Voltaren] Allergy Intermediate Wound Verified 06/18/20 13:48 metformin Allergy ADR-Diarrhe Verified 06/18/20 13:48 a mold Allergy Unknown Verified 06/18/20 13:48 Current Medications Current Medications Generic Name Dose Route Start Last Admin Trade Name Freq PRN Reason Stop Dose Admin Propofol 1,000 mg in 100 mls @ 0 mls/hr 07/25/20 06:30 07/25/20 11:41 Diprivan IV 35 mls/hr .Q0M KIMBERLY Administration As Directed Dopamine HCl/Dextrose 400 mg in 250 mls @ 11.056 mls/hr 07/25/20 09:15 07/25/20 09:51 Intropin Drip IV 0 mcg/kg/min CONT KIMBERLY 0 mls/hr Titration Protocol 5 MCG/KG/MIN PFSH Acute PFSH: Medical History CKD (chronic kidney disease) stage 3, GFR 30-59 ml/min Critical lower limb ischemia Diabetes mellitus Peripheral vascular disease Surgical History Hx of hysterectomy Family History Other Cancer Rheumatoid arthritis Social History Smoking and tobacco status: never smoked Alcohol intake: never Vitals/I&O/Wt Last Vital Signs Temp 96.4 F L 07/25/20 06:15 Pulse 60 07/25/20 12:00 Resp 14 07/25/20 12:00 BP 95/54 07/25/20 12:00 Pulse Ox 100 07/25/20 12:00 07/24/20 07/25/20 07/25/20 22:59 06:59 14:59 Intake Total 10.416 / 10.416 244.024 / 244.024 Balance 10.416 / 10.416 244.024 / 244.024 Weight last 48 hrs Weight 138 lb 9 oz Weight 130 lb Physical Exam Narrative: EXAM NARRATIVE: GENERAL: Averagely built and averagely nourished, intubated and sedated HEENT: No pallor or icterus. NECK: No JVD appreciated. CARDIOVASCULAR SYSTEM: S1-S2 regular. No S3 or S4 present. No murmur rubs or gallops. Excoriation noticed on upper chest. RESPIRATORY SYSTEM: Chest clear to auscultation anteriorly. No use of accessory muscles. ABDOMEN: Soft, nontender and nondistended. Normal bowel sounds present. EXTREMITIES: No cyanosis or clubbing. 1+ bilateral edema. Monophasic Doppler pulses DP and PT bilaterally. GLOBAL SALES EXECUTIVE: Patient is alert oriented ?3. No focal neurological deficits. SKIN: Normal turgor and temperature. No breakdown, rash or nail changes noted. PSYCH: Normal insight and judgment. Urinary Catheter Management^: Mcfarland: Cath Placed During This Visit: yes Urinary Catheter Date of Insertion: 07/25/20 Urinary Catheter Time of Insertion: 07:10 Data Micro: Micro: Microbiology 07/25/20 08:14 Gram Stain - Final Sputum - Endotrac heal Tube Aspirate Imaging^: CXR: My impression: Chest X-Ray 07/25/20 06:37 IMPRESSION: 1. Satisfactory endotracheal tube position. 2. Bilateral interstitial pulmonary infiltrates especially in the right lung with small right pleural effusion. This could be due to heart failure with interstitial pulmonary edema. An interstitial pneumonitis possibly viral cannot be excluded. Other Data: Other data: Peripheral angiogram 17 March 2020 Lower Extremity Interventional Findings Right common femoral artery approach was adopted. Long sheath was placed. After somewhat difficulty with Glidewire and seeker we were able to cross the proximal to mid SFA of the right leg. Viper wire was exchanged through seeker. 2.0 bur of CSI atherectomy device was used to modify the calcium of the left SFA. [place] 5x200 balloon was used for balloon angioplasty. Excellent angiographic result in left SFA was achieved. Good one-vessel runoff to left foot was noted. Peroneal and posterior tibial arteries are known to be occluded. Conclusions Reason for peripheral angiogram/intervention: Critical limb ischemia of the left footAbdominal aortogram: Abdominal aorta has luminal irregularity without significant aneurysm. Right renal artery has proximal 50% stenosis left renal artery is normal.Bilateral common iliac, external and internal iliac has luminal irregularitiesBilateral common femoral artery has luminal irregularitiesBilateral profunda has luminal irregularitiesLeft SFA has proximal to mid highly calcified tandem tight moderate to severe stenosis. Right SFA has mid tight highly calcified moderate to severe stenosis rest of the vessel luminal irregularitiesBilateral popliteal and tibioperoneal trunk has luminal irregularitiesBilateral single-vessel runoff noted with chronic occlusion of peroneal and posterior tibial arteries. A&P Assessment and plan (1) Acute respiratory failure: Status: Acute (2) NSTEMI (non-ST elevated myocardial infarction): Type I versus type II -continue aspirin, statin and beta-diogenes -Plan for echocardiogram and further testing based on the findings of echocardiogram. Status: Acute (3) Pulmonary edema: Continue Lasix 40 mg IV every 12 hr. -Closely monitor urine output. Status: Acute Qualifiers: Chronicity: acute Qualified Code(s): J81.0 - Acute pulmonary edema (4) Peripheral vascular disease: Status: Acute (5) Essential hypertension: Her elevated blood pressure likely in setting of hypoxia and respiratory distress as it came down to 130s without any antihypertensives Status: Acute (6) Hyperlipidemia: Status: Acute Qualifiers: Hyperlipidemia type: unspecified Qualified Code(s): E78.5 - Hyperlipidemia, unspecified (7) Diabetes mellitus: Status: Acute Qualifiers: Diabetes mellitus type: type 2 Diabetes mellitus mcfp insulin use: without mcfp use Diabetes mellitus complication status: with kidney complications Diabetes mellitus complication detail: with chronic kidney disease Additional A&P Information GERARD on CKD stage III hyperkalemia: Agree with holding valsartan Hyponatremia Leukocytosis : Currently being empirically covered with Zyvox and Zosyn for possible sepsis Normocytic anemia Thrombocytosis Thank you for allowing me to participate in patient's care. Please feel free to call with questions or concerns Consult Attestations Medical Necessity Statement: Needs hospital stay for respiratory failure elevated troponin and pulmonary edema Time Spent in Patient Care: Greater than 35 minutes (>than 50% of time spent in counselling and/or direct pt care on unit). Critical Care Time: Critical Care Time (min): 30 Coding Level of Care Code New Pt Acute Sheet Music Salesperson for Chg Fwd Patient Type New History Comprehensive Exam Comprehensive Medical Decision Making High Complexity Diagnoses Acute respiratory failure J96.00 NSTEMI (non-ST elevated myocardial infarction) I21.4 Pulmonary edema J81.0 Chronicity: acute Peripheral vascular disease I73.9 Essential hypertension I10 Hyperlipidemia E78.5 Hyperlipidemia type: unspecified Diabetes mellitus E11.9 Diabetes mellitus type: type 2 Diabetes mellitus bed bug exterminator insulin use: without bed bug exterminator use Diabetes mellitus complication status: with kidney complications Diabetes mellitus complication detail: with chronic kidney disease Time Spent (min) 40
--- NOTE | 2020-07-25 12:37 | ECG_ITS ---
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 Measurements Intervals [place] Rate: 61 P: 43 MA: 132 QRS: -40 QRSD: 103 T: 66 QT: 464 QTc: 471 Interpretive Statements SINUS RHYTHM MARKED LEFT AXIS DEVIATION [QRS AXIS < -30] LEFT VENTRICULAR HYPERTROPHY AND ST-T CHANGE [VOLTAGE CRITERIA PLUS ST/T ABNORMALITY] POSSIBLE ANTERIOR MYOCARDIAL INFARCTION [30 ms Q WAVE IN V3/V4, OR R < 0.2 mV IN V4], OF INDETERMINATE AGE Compared to ECG 07/25/2020 08:25:39 Myocardial infarct finding now present Sinus bradycardia no longer present ST (T wave) deviation still present Electronically Signed On 07-25-2020 22:02:19 PROTOZOOLOGY TEACHER by Kristy Faye M.D. [id number]
[2020-07-25] MEDS: aspirin 300 mg Supp PR (13:32)
[2020-07-25] MEDS: piperacillin-tazobactam 3.375 GM in sodium chloride 0.9% (plus) 50 ML IV ×2 (13:32→23:33)
--- NOTE | 2020-07-25 13:36 | P.HP_ITS ---
Providers/Chief Complaint Admitting Physician: Darrell Gregory Primary Care Provider: Crystal Olivia MD Chief Complaint: resp distress History of Present Illness Elizabeth Lima is a 74 year old female with past medical history of severe peripheral vascular disease, chronic kidney disease stage III, hypertension, diabetes who was admitted couple of days ago for angiography and discharged yesterday home with presenting to emergency room today with labored breathing and mental status changes. Emergency room the patient was found to be in severe acute respiratory failure. ABG showed hypercapnia. The patient was intubated in the emergency room. Currently sedated and is unable to provide history. According to the ER physician initially her blood pressure was above 200. However during sedation it dropped significantly. She required pressors for short period of time after which her blood pressure stabilized in 140s range. Chest x-ray revealed bilateral interstitial infiltrates consistent with probable edema with possible underlying interstitial pneumonia. Her BNP and troponins were elevated as well. The patient has chronic lower extremity wounds secondary to severe peripheral vascular disease. Her white blood cell count is significantly elevated. There are no reports about fever however. Review of Systems General: Reports: ROS unobtainable due to endotracheal tube and ROS unobtainable due to mental status Medications/Allergies Home Medications Medication Instructions Recorded Confirmed Last Taken Type aspirin 81 mg tablet,delayed 81 mg PO BEDTIME 04/30/20 07/25/20 07/22/20 21:00 History release atorvastatin 10 mg PO BEDTIME 07/23/20 07/25/20 07/22/20 21:00 History gabapentin 200 mg PO BID 07/23/20 07/25/20 07/23/20 10:30 History amlodipine 5 mg PO DAILY #30 tab 07/24/20 07/25/20 Unknown Rx carvedilol [Coreg] 3.125 mg PO BID #60 tab 07/24/20 07/25/20 Unknown Rx valsartan 160 mg PO DAILY 07/25/20 07/25/20 Unknown History Allergies Allergy/AdvReac Type Severity Reaction Status Date / Time diclofenac [From Voltaren] Allergy Intermediate Wound Verified 06/18/20 13:48 metformin Allergy ADR-Diarrhe Verified 06/18/20 13:48 a mold Allergy Unknown Verified 06/18/20 13:48 PFSH Acute PFSH: Medical History CKD (chronic kidney disease) stage 3, GFR 30-59 ml/min Critical lower limb ischemia Diabetes mellitus Peripheral vascular disease Surgical History Hx of hysterectomy Family History Other Cancer Rheumatoid arthritis Social History Smoking and tobacco status: never smoked Alcohol intake: never Vitals/I&O/Wt Last Vital Signs Temp 98.1 F 07/25/20 12:30 Pulse 62 07/25/20 13:00 Resp 14 07/25/20 13:14 BP 126/67 07/25/20 13:00 Pulse Ox 100 07/25/20 13:00 07/24/20 07/25/20 07/25/20 22:59 06:59 14:59 Intake Total 10.416 / 10.416 244.024 / 244.024 Balance 10.416 / 10.416 244.024 / 244.024 Weight last 48 hrs Weight 62.851 kg Weight 58.967 kg Physical Exam Narrative: EXAM NARRATIVE: Patient is currently sedated with propofol. Mechanically ventilated. No acute distress. Skin is warm and dry. Moist mucous membranes. There are areas of the skin with scratch pickard and macular rash /possible dermatitis. Eyes Diamond, sclerae normal Neck supple. No JVD Lungs air conduction to all lung porter. Minimal crackles bilaterally. Heart S1, S2, regular Abdomen soft, nontender, bowel sounds are present extremities bilateral pedal edema is present. No cyanosis or calf tenderness bilaterally. Chronic heel ulcers are present. No active discharge or bleeding. There are areas of the skin Urinary Catheter Management^: Mcfarland: Cath Placed During This Visit: yes Urinary Catheter Date of Insertion: 07/25/20 Urinary Catheter Time of Insertion: 07:10 Data : 07/25/20 06:37 07/25/20 06:37 Other Labs: Laboratory Results WBC 20.1 10^3/uL (4.0-10.0) H 07/25/20 06:37 RBC 3.12 10^6/uL (4.1-5.3) L 07/25/20 06:37 Hgb 9.0 g/dL (11.5-15.3) L 07/25/20 06:37 Hct 28.4 % (37.0-47.0) L 07/25/20 06:37 MCV 91.0 fL (81-99) 07/25/20 06:37 MCH 28.8 pg (28.0-34.0) 07/25/20 06:37 MCHC 31.7 g/dL (30.0-36.0) 07/25/20 06:37 RDW 13.1 % (12.1-15.1) 07/25/20 06:37 Plt Count 402 10^3/cmm (130-400) H 07/25/20 06:37 MPV 10.4 fL (7.4-10.4) 07/25/20 06:37 Neut % (Auto) 83.3 % 07/25/20 06:37 Lymph % (Auto) 10.5 % 07/25/20 06:37 [place] % (Auto) 3.2 % 07/25/20 06:37 Eos % (Auto) 1.8 % 07/25/20 06:37 Baso % (Auto) 0.9 % 07/25/20 06:37 Neut # (Auto) 16.72 10^3/uL (1.8-7.7) H 07/25/20 06:37 Lymph # (Auto) 2.1 10^3/uL (0.8-4.8) 07/25/20 06:37 [place] # (Auto) 0.7 10^3/uL (0.2-0.9) 07/25/20 06:37 Eos # (Auto) 0.4 10^3/uL (0.0-0.8) 07/25/20 06:37 Baso # (Auto) 0.2 10^3/uL (0.0-0.1) H 07/25/20 06:37 Nucleated RBC % (auto) 0 % 07/25/20 06:37 Nucleated RBCs # 0.0 /100WBC 07/25/20 06:37 D-Dimer 2.33 ug/mIFEU (0-0.59) H 07/25/20 06:37 Specimen Type Arterial 07/25/20 08:30 Sample Site Brachial, left 07/25/20 08:30 ABG pH 7.34 (7.35-7.45) L 07/25/20 08:30 ABG pCO2 38.8 mmHg (35-45) 07/25/20 08:30 ABG pO2 318.0 mmHg (80.0-100.0) H 07/25/20 08:30 ABG HCO3 20.9 mmol/L (22-26) L 07/25/20 08:30 ABG O2 Saturation 94.8 07/25/20 06:11 ABG Base Excess -4.5 mmol/L (-2.0-2.0) L 07/25/20 08:30 Jaren Test N/a 07/25/20 08:30 A-a O2 Gradient Not Reportable 07/25/20 06:11 Hematocrit 26.1 % (37-47) L 07/25/20 08:30 Hgb O2 Saturation 93.2 % (95-100) L 07/25/20 06:11 Carboxyhemoglobin 0.7 %THgb (0.4-20.1) 07/25/20 06:11 Methemoglobin 1.0 % (0.4-1.5) 07/25/20 06:11 Total Hemoglobin 10.1 g/dL (12-16) L 07/25/20 06:11 Sodium 130.0 mmol/L (131-143) L 07/25/20 06:11 Potassium 4.6 mmol/L (3.5-5.0) 07/25/20 06:11 Glucose 278.0 mg/dL (70-115) H 07/25/20 06:11 Ionized Calcium 1.2 mmol/L (1.1-1.4) 07/25/20 06:11 O2 Delivery Device Vent 07/25/20 08:30 O2 Liters/Min 15.0 % 07/25/20 06:11 Mechanical Rate 16.0 07/25/20 08:30 FiO2 100.0 % 07/25/20 08:30 Tidal Volume 0.35 07/25/20 08:30 PEEP 8.0 cmH20 07/25/20 08:30 Shower Attendant ID Gd 07/25/20 08:30 Sodium 130 mmol/L (136-145) L 07/25/20 06:37 Potassium 5.2 mmol/L (3.5-5.1) H 07/25/20 06:37 Chloride 97 mmol/L (98-107) L 07/25/20 06:37 Carbon Dioxide 22 mmol/L (22-29) 07/25/20 06:37 Anion Gap 16.2 (5-19) 07/25/20 06:37 BUN 28 mg/dL (8-23) H 07/25/20 06:37 Creatinine 1.7 mg/dL (0.5-0.9) H 07/25/20 06:37 GFR Calculation Not Reportable 07/25/20 06:37 Glucose 239 mg/dL (65-115) H 07/25/20 06:37 Calculated Osmolality 283 mOsm/kg (285-295) L 07/25/20 06:37 Lactic Acid 2.0 mmol/L (0.5-2.2) 07/25/20 06:37 Calcium 8.5 mg/dL (8.5-10.5) 07/25/20 06:37 Total Bilirubin 0.2 mg/dL (0.15-1.2) 07/25/20 06:37 AST 23 U/L (0-32) 07/25/20 06:37 ALT 15 U/L (0-33) 07/25/20 06:37 Alkaline Phosphatase 75 IU/L (35-105) 07/25/20 06:37 Lactate Dehydrogenase 289 U/L (135-214) H 07/25/20 06:37 Creatine Kinase 85 U/L (26-192) 07/25/20 06:37 Troponin T Baseline 101 ng/L (0-10) H* 07/25/20 06:37 Troponin T 120 Minute 347.0 ng/L (0-10) H 07/25/20 08:48 Delta Troponin T 246.0 ABS# (0-10) H* 07/25/20 08:48 C-Reactive Protein 2.8 mg/L (0.0-4.9) 07/25/20 06:37 NT-Pro-B Natriuret Pep 46370 pg/mL (0-450) H 07/25/20 06:37 Total Protein 6.5 g/dL (6.6-8.7) L 07/25/20 06:37 Albumin 3.7 g/dL (3.5-5.2) 07/25/20 06:37 Globulin 2.8 g/dL (1.3-4.6) 07/25/20 06:37 SARS-CoV-2 Ag (Rapid) Negative (Negative) 07/25/20 06:49 Impressions Chest X-Ray 07/25/20 06:37 IMPRESSION: 1. Satisfactory endotracheal tube position. 2. Bilateral interstitial pulmonary infiltrates especially in the right lung with small right pleural effusion. This could be due to heart failure with interstitial pulmonary edema. An interstitial pneumonitis possibly viral cannot be excluded. Micro: Microbiology 07/25/20 08:14 Gram Stain - Final Sputum - Endotracheal Tube Aspirate A&P Additional A&P Information 74-year-old female with past medical history of severe peripheral vascular disease, chronic kidney disease, hypertension who underwent angiography couple of days ago in this hospital and was discharged yesterday. Today she presents with acute severe respiratory distress/labored breathing. Acute hypercapnic respiratory failure probably secondary to pulmonary edema. Her blood pressure is at 200 on presentation. Fluid overload and malignant h ypertension are suspected as triggering factor for her pulmonary edema/CHF. Continue mechanical ventilation. We will try to extubate her tomorrow morning after stabilization. We will recheck her chest x-ray and ABGs tomorrow morning. Pulmonary edema/fluid overload. She received furosemide in the emergency room. We will continue this today. We appreciate Dr. Faye's input and recommendations. Possible infection/sepsis. I do not think that she is in septic shock. Most likely the short episode of hypotension was related to sedation. However she has significant leukocytosis. We will check her procalcitonin level. For now we will cover her with linezolid and Zosyn. Possible sources could be pneumonia versus infected ulcers on the lower extremities. Abnormal troponin elevation. Demand ischemia versus hypertensive emergency with endorgan damage is suspected. Will order rectal aspirin. Will wait for Dr. Faye's recommendations. DVT prophylaxis. Will order heparin. Chronic kidney disease. Will monitor. Will hold her valsartan. Some worsening is possible with aggressive diuresis and recent contrast use. Hyperkalemia. Will manage it with furosemide. We will hold her valsartan. We will recheck renal panel again tonight and tomorrow morning. Anemia probably chronic. Monitor. Beatties. Insulin sliding scale. Hypertension. As needed hydralazine. The plan of care was discussed with multidisciplinary team. Will discuss with the family when they arrive. Time spent on this critical care case is 45 minutes Attestations Medical Necessity Statement*: Patient is admitted in critical condition to ICU. Based on my assessment of her current findings I expect that the patient will spend more than 2 midnights in the hospital. Coding Level of Care Code Acute Licensed Certified Orthotist for Janice Long
[2020-07-25] MEDS: heparin 5,000 unit/mL INJ 1 mL 5000 UNIT SUBCUT ×2 (14:46→23:34)
[2020-07-25 16:26] LABS: Albumin Level 3.2 g/dL (3.5-5.2); Blood Urea Nitrogen 32 mg/dL (8-23); Calcium 8.6 mg/dL (8.5-10.5); Carbon Dioxide 20 mmol/L (22-29); Chloride 98 mmol/L (98-107); Glucose 158 mg/dL (65-115); Phosphorus 4.1 mg/dL (2.5-4.5); Sodium 131 mmol/L (136-145)
[2020-07-25 16:31] LABS: Anion Gap 18.9 (5-19); Potassium 5.9 mmol/L (3.5-5.1)
[2020-07-25] MEDS: linezolid premix 600 MG/300 ML PREMIX 300 MG IV (16:42)
[2020-07-25 17:27] LABS: Glucose Point of Care 161 mg/dL (70-110)
[2020-07-25] MEDS: carvedilol 3.125 mg Tablet PO (17:29)
[2020-07-25] MEDS: gabapentin 100 mg Capsule 200 MG PO (17:29)
[2020-07-25 18:36] LABS: Glucose Point of Care 193 mg/dL (70-110)
--- NOTE | 2020-07-25 20:12 | XRR_ITS ---
PROCEDURE INFORMATION: Exam: XR Chest, 1 View Exam date and time: 07/25/2020 8:15 PM Age: 74 years old Clinical indication: Device placement; Ng tube; Additional info: Og tube placement TECHNIQUE: Imaging protocol: XR of the chest Views: 1 view. COMPARISON: CR XR chest 1V portable [id number] 07/25/2020 6:25 AM FINDINGS: Tubes, catheters and devices: There is an enteric tube present with distal portion below the diaphragm, in the stomach. The distal tip is not included on the image. Endotracheal tube is unchanged from the previous study. Lungs: Mild pulmonary venous congestion, improved when compared to the previous study of 07/25/2020 at 6:30 a.m.. Pleural space: Small bilateral pleural effusions, unchanged. Heart/Mediastinum: No cardiomegaly. Bones/joints: No acute abnormality. XR/XR chest 1V portable [id number] IMPRESSION: 1. There is an enteric tube present with distal portion below the diaphragm, in the stomach. The distal tip is not included on the image. 2. Mild pulmonary venous congestion, improved when compared to the previous study of 07/25/2020 at 6:30 a.m.. 3. Small bilateral pleural effusions, unchanged.
[2020-07-25] MEDS: propofol 1,000 MG/100 ML INJ 9.5 MG IV (21:22)
[2020-07-26] VITALS (293 sets, daily range): BP systolic 109–171; BP diastolic 46–96; PULSE 48–83; RESP 12–18; TEMP 36.5–36.8; O2SAT 86–100
[2020-07-26 00:40] LABS: Glucose Point of Care 121 mg/dL (70-110)
[2020-07-26] MEDS: FUROsemide 10 mg/mL SDV 4mL 40 MG IVP (00:49)
[2020-07-26 03:50] LABS: Basophils % 0.2 %; Hemoglobin 7.7 g/dL (11.5-15.3); Lymphocytes # 1.1 10^3/uL (0.8-4.8); Lymphocytes % 8.8 %; Mean Corpuscular HGB Conc 32.1 g/dL (30.0-36.0); Mean Corpuscular Hemoglobin 28.8 pg (28.0-34.0); Mean Corpuscular Volume 89.9 fL (81-99); Monocytes # 0.8 10^3/uL (0.2-0.9); Monocytes % 6.6 %; Neutrophils # 10.36 10^3/uL (1.8-7.7); Nucleated Red Blood Cells % 0 %; Platelet Count 241 10^3/cmm (130-400); Red Blood Count 2.67 10^6/uL (4.1-5.3); Red Cell Distribution Width 13.4 % (12.1-15.1); White Blood Count 12.3 10^3/uL (4.0-10.0)
[2020-07-26] MEDS: linezolid premix 600 MG/300 ML PREMIX 300 MG IV (04:04)
[2020-07-26 04:19] LABS: Alanine Aminotransferase 11 U/L (0-33); Albumin Level 2.8 g/dL (3.5-5.2); Alkaline Phosphatase 55 IU/L (35-105); Anion Gap 16.6 (5-19); Aspartate Amino Transferase 28 U/L (0-32); Blood Urea Nitrogen 40 mg/dL (8-23); Calcium 8.7 mg/dL (8.5-10.5); Carbon Dioxide 21 mmol/L (22-29); Chloride 94 mmol/L (98-107); Chol HDL Ratio 3.38 mg/dL (0.0-4.40); Cholesterol 162 mg/dL (0-200); Globulin 2.8 g/dL (1.3-4.6); Glucose 125 mg/dL (65-115); HDL Cholesterol 48 mg/dL (60-100); LDL Cholesterol Calculated 78 mg/dL (50-129); LDL HDL Ratio 1.63 RATIO (0.00-3.22); Magnesium 1.9 mg/dL (1.7-2.3); Osmolality Calculated 273 mOsm/kg (285-295); Potassium 5.6 mmol/L (3.5-5.1); Sodium 126 mmol/L (136-145); Total Bilirubin 0.2 mg/dL (0.15-1.2); Total Protein 5.6 g/dL (6.6-8.7); Triglycerides 179 mg/dL (0-150)
[2020-07-26 04:30] LABS: D Dimer 6.88 ug/mIFEU (0-0.59)
[2020-07-26 05:26] LABS: ABG PCO2 35.1 mmHg (35-45); ABG PH Result 7.41 (7.35-7.45); Arterial Blood Gas Hematocrit 24.1 % (37-47); Base Excess ABG -2.4 mmol/L (-2.0-2.0); Blood Gas Allen Test Pos; Blood Gas Operator Identificat JB; Blood Gas Sample Site Radial, right; Blood Gas Sample Type Arterial; Blood Gas Tidal Volume 0.35; Oxygen Device VENT; PO2 ABG 98.7 mmHg (80.0-100.0)
[2020-07-26] MEDS: piperacillin-tazobactam 3.375 GM in sodium chloride 0.9% (plus) 50 ML IV ×2 (05:43→17:26)
[2020-07-26] MEDS: heparin 5,000 unit/mL INJ 1 mL 5000 UNIT SUBCUT ×3 (05:43→21:21)
[2020-07-26 06:48] LABS: Glucose Point of Care 137 mg/dL (70-110)
--- NOTE | 2020-07-26 08:13 | ECG_ITS ---
[facility] Test Date: 2020-07-26 Pat Name: Elizabeth Lima Department: Room: [facility] Gender: Female Supervisor Insulation: : 1945 Requested By: Kristy Faye Order Number: [id number] Jose Cruz MD: Kristy Faye M.D. Measurements Intervals [place] Rate: 56 P: 70 NV: 152 QRS: -36 QRSD: 101 T: 167 QT: 464 QTc: 450 Interpretive Statements SINUS BRADYCARDIA MARKED LEFT AXIS DEVIATION [QRS AXIS < -30] LEFT VENTRICULAR HYPERTROPHY AND ST-T CHANGE [VOLTAGE CRITERIA PLUS ST/T ABNORMALITY] POSSIBLE ANTERIOR MYOCARDIAL INFARCTION [30 ms Q WAVE IN V3/V4, OR R < 0.2 mV IN V4], OF INDETERMINATE AGE Compared to ECG 07/25/2020 12:45:29 Sinus rhythm no longer present ST (T wave) deviation still present Myocardial infarct finding still present Electronically Signed On 07-27-2020 21:12:36 [employer] REP by Kristy Faye M.D. [id number]
--- NOTE | 2020-07-26 08:17 | PM.PN ---
Subjective Subjective: Interval history: Patient was extubated today. She received 1 dose of Lasix 20 mg IV x1. Renal function worsened. Still continues to have hyperkalemia. Her weight this morning was 130 pounds that is -8 pounds which is questionable. UO= 1L , -300 ml. No events on telemetry. ABG this morning with pH of 7.41, PCO2 35, PO2 99 on FiO2 of 0.30, PEEP of 8 and tidal volume 350 mL. Patient states she was doing well until after dinner at around 10 PM when she went to bed she developed sharp sudden onset shortness of breath. She denies having palpitations chest pain or tachycardia prior to this episode. She called her son and was brought to the ER and subsequently was intubated. She feels much better now but complains of some discomfort in her throat post extubation. Medications: Reviewed: Yes Medication Review Details: Current Medications Aspirin (Aspirin 300 Mg Supp) 300 mg WI DAILY [facility] Last Admin: 07/25/20 13:32 Dose: 300 mg Documented by: Atorvastatin Calcium (Atorvastatin 40 Mg Tablet) 10 mg PO BEDTIME [facility] Last Admin: 07/25/20 23:38 Dose: Not Given Documented by: Carvedilol (Carvedilol 3.125 Mg Tablet) 1.5625 mg PO BID [facility] Dextrose (Dextrose 50% Syringe 50 Ml) 25 ml IVP ONCE PRN; Protocol PRN Reason: hypoglycemia protocol Dextrose (Dextrose 50% Syringe 50 Ml) 50 ml IVP PRN PRN; Protocol PRN Reason: hypoglycemia protocol Furosemide (Furosemide 10 Mg/Ml Sdv 2ml) 20 mg IVP Q12H [facility] Gabapentin (Gabapentin 100 Mg Capsule) 200 mg PO BID [facility] Last Admin: 07/25/20 17:29 Dose: 200 mg Documented by: Glucagon (Glucagon 1 Mg/Ml Inj 1 Ml) 1 mg IM ONCE PRN; Protocol PRN Reason: Adult Acute Hypoglycemia Prot. Heparin Sodium (Beef Lung) (Heparin 5,000 Unit/Ml Inj 1 Ml) 5,000 unit SUBCUT Q8H [facility] Last Admin: 07/26/20 05:43 Dose: 5,000 unit Documented by: Hydralazine HCl (Hydralazine 20 Mg/Ml Inj 1 Ml) 10 mg IVP Q4H PRN PRN Reason: SBP above 160 Midazolam HCl 100 mg/ Sodium (Chloride) 100 mls @ 0 mls/hr IV .Q0M KIMBERLY; Protocol Propofol (Diprivan) 1,000 mg in 100 mls @ 0 mls/hr IV .Q0M KIMBERLY Last Infusion: 07/26/20 01:39 Dose: 11.3 mls/hr Documented by: Dopamine HCl/Dextrose (Intropin Drip) 400 mg in 250 mls @ 11.056 mls/hr IV CONT KIMBERLY; Protocol Last Titration: 07/25/20 09:51 Dose: 0 mcg/kg/min, 0 mls/hr Documented by: Piperacillin Sod/Tazobactam (Sod 3.375 gm/ Sodium Chloride) 50 mls @ 12.5 mls/hr IV Q8H IKMBERLY; Protocol Last Admin: 07/26/20 05:43 Dose: 12.5 mls/hr Documented by: Dextrose (D5w) 500 mls @ 100 mls/hr IV ONCE PRN; Protocol PRN Reason: Adult Acute Hypoglycemia Prot Linezolid (Zyvox Premix) 600 mg in 300 mls @ 300 mls/hr IV Q12H KIMBERLY; Protocol Last Admin: 07/26/20 04:04 Dose: 300 mls/hr Documented by: Insulin Aspart (Insulin Aspart 100 Unit/1 Ml) 0 unit SUBCUT Q6H KIMBERLY; Protocol Last Admin: 07/26/20 06:44 Dose: Not Given Documented by: Vitals/I&O/Wt Last Vital Signs Temp 97.7 F 07/26/20 04:00 Pulse 50 L 07/26/20 07:30 Resp 14 07/26/20 08:07 BP 115/54 07/26/20 07:30 Pulse Ox 100 07/26/20 07:30 07/25/20 07/26/20 07/26/20 22:59 06:59 14:59 Intake Total 450 / 694.024 90.692 / 784.716 Output Total 375 / 375 600 / 975 100 / 100 Balance 75 / 319.024 -509.308 / -190.284 -100 / -100 Weight last 48 hrs Weight 130 lb 8 oz Weight 138 lb 9 oz Weight 130 lb Physical Exam Narrative: EXAM NARRATIVE: EXAM NARRATIVE: GENERAL: Averagely built and averagely nourished, sitting in chair at the time of evaluation HEENT: No pallor or icterus. NECK: No JVD appreciated. CARDIOVASCULAR SYSTEM: S1-S2 regular. No S3 or S4 present. Grade 3/6 harsh ejection systolic murmur in aortic area with radiation to carotids. Excoriation noticed on upper chest. RESPIRATORY SYSTEM: Chest clear to auscultation anteriorly. No use of accessory muscles. ABDOMEN: Soft, nontender and nondistended. Normal bowel sounds present. EXTREMITIES: No cyanosis or clubbing. No edema. Monophasic Doppler pulses DP and PT bilaterally. GAUNTLET PAIRER: Patient is alert oriented ?3. No focal neurological deficits. SKIN: Normal turgor and temperature. No breakdown, rash or nail changes noted. PSYCH: Normal insight and judgment. Urinary Catheter Management^: Mcfarland: Cath Placed During This Visit: yes Reason for Continuing Indwelling Catheter: Accurate Measurement of Urinary Output in Critically Ill Patients Urinary Catheter Date of Insertion: 07/25/20 Urinary Catheter Time of Insertion: 07:10 Data : 07/26/20 03:15 07/26/20 03:15 Other Labs: Laboratory Tests 07/26/20 05:13 ABG pH 7.41 ABG pCO2 35.1 ABG pO2 98.7 FiO2 30.0 Tidal Volume 0.35 PEEP 8.0 Micro: Microbiology 07/25/20 17:50 Blood Culture - Preliminary Blood SPECIMEN COLLECTED 07/25/20 17:55 Blood Culture - Preliminary Blood SPECIMEN COLLECTED 07/25/20 08:14 Gram Stain - Final Sputum - Endotracheal Tube Aspirate CXR: Radiologist's impression: CXR IMPRESSION: Again demonstrated is mild vascular congestion. Mild ill-defined opacification at right lung base is most compatible with atelectasis/infiltrate with adjacent pleural effusion, again demonstrated. Attestation for Other Data: I personally reviewed and interpreted the following: Other data: Echocardiogram 26 July 2020 CONCLUSIONS 1. Small left ventricular cavity size. Moderate concentric left ventricular hypertrophy. Normal left ventricle systolic function. Left ventricular ejection fraction estimated at 55%. There is possible mild hypokinesis of apical inferior and apical septal katz. grade II diastolic dysfunction, moderately elevated filling pressures. 2. Normal right ventricular size and systolic function. 3. Moderately increased left atrial size. 4. Mild mitral and tricuspid valve regurgitation. 5. Moderate aortic valve stenosis, mean gradient 17.1 mmHg, JOSE 1.1 cm squared (LVOT= 18 mm). Indexed aortic valve area of 0.7 cm squared/m squared. Dimensionless valve index of 0.46. Mild aortic valve regurgitation. 6. Right pleural effusion. 7. No prior similar studies to compare. A&P Assessment and plan (1) Acute respiratory failure: Status: Acute (2) NSTEMI (non-ST elevated myocardial infarction): Type I versus type II in setting of hypoxia and markedly elevated blood pressure. -continue aspirin, statin and beta-diogenes -Echocardiogram with preserved left ventricle systolic function with possible hypokinesis of apical inferior and apical septal katz. -Given her extensive PAD as well as wall motion abnormality on her echocardiogram there is a high likelihood that she has coronary artery disease. -I think she would benefit from stress testing given her renal function for further risk stratification. -I will plan for stress test possibly on Monday. Status: Acute (3) Pulmonary edema: Received Lasix 20 mg IV earlier today. -Hold further Lasix today and possibly restart tomorrow morning based on her BMP. -Closely monitor urine output. Status: Acute Qualifiers: Chronicity: acute Qualified Code(s): J81.0 - Acute pulmonary edema (4) Peripheral vascular disease: Plan for peripheral angiogram possibly in next few weeks with Dr. Steele Status: Acute (5) Essential hypertension: Her elevated blood pressure likely in setting of hypoxia and respiratory distress as it came down to 130s without any antihypertensives. -Possibly will need amlodipine added back now that she is extubated. -Continue to monitor her blood pressure closely. Continue to hold off on valsartan. Status: Acute (6) Hyperlipidemia: Status: Acute Qualifiers: Hyperlipidemia type: unspecified Qualified Code(s): E78.5 - Hyperlipidemia, unspecified (7) Diabetes mellitus: Status: Acute Qualifiers: Diabetes mellitus type: type 2 Diabetes mellitus [facility] insulin use: without buttermaker helper use Diabetes mellitus complication status: with kidney complications Diabetes mellitus complication detail: with chronic kidney disease Additional A&P Information GERARD on CKD stage III : BUN is increased to 40 from 32 and creatinine is 2.6 from 1.9 today. Avoid any nephrotoxic agents. Moderate aortic stenosis: hyperkalemia: Agree with holding valsartan Hyponatremia: Sodium level has dropped to 126 from 131, likely prerenal in setting of overdiuresis. Hold off on further IV Lasix today. Leukocytosis : Currently being empirically covered with Zyvox and Zosyn for possible sepsis Normocytic anemia: Hemoglobin dropped to 7.7 from 9.9 few days back. Continue to monitor closely. No signs of active bleed. Thrombocytosis: Resolved Right foot ulcer: Being followed by wound care. Thank you for allowing me to participate in patient's care. Please feel free to call with questions or concerns Attestations Medical Necessity Statement*: Patient needs hospital stay for worsening renal function, NSTEMI and pulmonary edema. Time Spent in Patient Care: Greater than 35 minutes (>than 50% of time spent in counselling and/or direct pt care on unit). Coding Level of Care Code Acute Slot Supervisor for [facility] Diagnoses Acute respiratory failure J96.00 NSTEMI (non-ST elevated myocardial infarction) I21.4 Pulmonary edema J81.0 Chronicity: acute Peripheral vascular disease I73.9 Essential hypertension I10 Hyperlipidemia E78.5 Hyperlipidemia type: unspecified Diabetes mellitus E11.9 Diabetes mellitus type: type 2 Diabetes mellitus buttermaker helper insulin use: without [facility] use Diabetes mellitus complication status: with kidney complications Diabetes mellitus complication detail: with chronic kidney disease Time Spent (min) 35
[2020-07-26 08:53] LABS: Troponin T (5th) Once 682 ng/L (0-10)
[2020-07-26] MEDS: gabapentin 100 mg Capsule 200 MG PO ×2 (09:33→17:27)
[2020-07-26] MEDS: FUROsemide 10 mg/mL SDV 2mL 20 MG IVP (09:33)
[2020-07-26] MEDS: aspirin 300 mg Supp PR (09:34)
[2020-07-26] MEDS: carvedilol 3.125 mg Tablet 1.5625 MG PO ×2 (09:34→17:27)
[2020-07-26 11:42] LABS: Glucose Point of Care 113 mg/dL (70-110)
--- NOTE | 2020-07-26 12:01 | PM.PN ---
Subjective Subjective: Interval history: Sedation is weaned. She is awake. Following instructions. No acute distress. Denies any pain. No significant discharge from endotracheal tube. Medications: Reviewed: Yes Medication Review Details: Generic Name Dose Route Start Last Admin Trade Name Erica PRN Reason Stop Dose Admin Aspirin 300 mg 07/25/20 13:00 07/26/20 09:34 Aspirin 300 Mg S upp GA 300 mg DAILY KIMBERLY Administration Atorvastatin Calci um 10 mg 07/25/20 21:00 07/25/20 23:38 Atorvastatin 40 Mg Tablet PO Not Given BEDTIME KIMBERLY Carvedilol 1.5625 mg 07/26/20 09:00 07/26/20 09:34 Carvedilol 3.125 Mg Tablet PO 1.5625 mg BID KIMBERLY Administration Furosemide 20 mg 07/26/20 08:15 07/26/20 09:33 Furosemide 10 Mg /Ml Sdv 2ml IVP 20 mg Q12H KIMBERLY Administration Gabapentin 200 mg 07/25/20 18:00 07/26/20 09:33 Gabapentin 100 M g Capsule PO 200 mg BID KIMBERLY Administration Heparin Sodium (Be ef Lung) 5,000 unit 07/25/20 14:00 07/26/20 05:43 Heparin 5,000 Un it/Ml Inj 1 Ml SUBCUT 5,000 unit Q8H KIMBERLY Administration Propofol 1,000 mg in 100 m ls @ 0 mls/hr 07/25/20 06:30 07/26/20 01:39 Diprivan IV 11.3 mls/hr .Q0M KIMBERLY Infusion As Directed Dopamine HCl/Dextr ose 400 mg in 250 mls @ 11.056 mls/hr 07/25/20 09:15 07/25/20 09:51 Intropin Drip IV 0 mcg/kg/min CONT KIMBERLY 0 mls/hr Titration Protocol 5 MCG/KG/MIN Piperacillin Sod/T azobactam 50 mls @ 12.5 mls /hr 07/25/20 14:00 07/26/20 05:43 Sod 3.375 gm/ So dium Chloride IV 12.5 mls/hr Q8H KIMBERLY Administration Protocol Linezolid 600 mg in 300 mls @ 300 mls/hr 07/25/20 16:00 07/26/20 04:04 Zyvox Premix IV 300 mls/hr Q12H KIMBERLY Administration Protocol Insulin Aspart 0 unit 07/25/20 13:00 07/26/20 06:44 Insulin Aspart 1 00 Unit/1 Ml SUBCUT Not Given Q6H [facility] Protocol Vitals/I&O/Wt Last Vital Signs Temp 97.7 F 07/26/20 04:00 Pulse 56 L 07/26/20 11:35 Resp 12 07/26/20 11:52 BP 156/67 07/26/20 11:35 Pulse Ox 99 07/26/20 11:35 07/25/20 07/26/20 07/26/20 22:59 06:59 14:59 Intake Total 450 / 694.024 90.692 / 784.716 Output Total 375 / 375 600 / 975 100 / 100 Balance 75 / 319.024 -509.308 / -190.284 -100 / -100 Weight last 48 hrs Weight 59.194 kg Weight 62.851 kg Weight 58.967 kg Physical Exam Narrative: EXAM NARRATIVE: Awake alert and oriented. No acute distress. Mechanically ventilated. Good muscle strength. Good reflexes. Can lift her head. Skin is warm and dry. Moist mucous membranes. Skin rash is much better. Eyes Diamond, sclerae normal Neck supple. No JVD Lungs air conduction to all lung porter. Clear. No significant crackles or wheezes. Heart S1, S2, regular Abdomen soft, nontender, bowel sounds are present extremities bilateral pedal edema is present. No cyanosis or calf tenderness bilaterally. Chronic heel ulcers are present. No active discharge or bleeding. Urinary Catheter Management^: Mcfarland: Cath Placed During This Visit: yes Reason for Continuing Indwelling Catheter: Accurate Measurement of Urinary Output in Critically Ill Patients Urinary Catheter Date of Insertion: 07/25/20 Urinary Catheter Time of Insertion: 07:10 Data : 07/26/20 03:15 07/26/20 03:15 Micro: Microbiology 07/25/20 17:50 Blood Culture - Preliminary Blood SPECIMEN COLLECTED 07/25/20 17:55 Blood Culture - Preliminary Blood SPECIMEN COLLECTED 07/25/20 08:14 Gram Stain - Final Sputum - Endotracheal Tube Aspirate A&P Additional A&P Information 74-year-old female with past medical history of severe peripheral vascular disease, chronic kidney disease, hypertension who underwent angiography couple of days ago in this hospital and was discharged yesterday. Today she presents with acute severe respiratory distress/labored breathing. Acute hypercapnic respiratory failure probably secondary to pulmonary edema. Her blood pressure is at 200 on presentation. Fluid overload and malignant hypertension are suspected as triggering factor for her pulmonary edema/CHF. Morning ABGs look good. We will start CPAP trial. Discussed with respiratory therapy. We will try to extubate her today. Pulmonary edema/fluid overload. Improved with diuresis. We appreciate Dr. Faye's input and recommendations. Possible infection/sepsis. I do not think that she is in septic shock. Most likely the short episode of hypotension was related to sedation. Leukocytosis is improving. Could be aspiration pneumonia. Currently on linezolid and Zosyn. We will try to de-escalate her antibiotics quickly. Abnormal troponin elevation. Demand ischemia versus hypertensive emergency with endorgan damage is suspected. Will order rectal aspirin. Will wait for Dr. Faye's recommendations. DVT prophylaxis. Will order heparin. Acute kidney injury on top of chronic kidney disease. Probably due to diuresis. Valsartan is on hold. Will consult nephrology. Hyperkalemia. As above. Hyponatremia. Probably secondary to IV fluids and combination of pulmonary disease and diuresis. D5 was discontinued. Will closely monitor renal panel. Will discuss with litigation support analyst. Anemia probably chronic. Monitor. Diabetes. Insulin sliding scale. Hypertension. As needed hydralazine. The plan of care was discussed with multidisciplinary team. Discussed with the patient. Time spent on this critical care case is 35minutes Attestations Medical Necessity Statement*: Still requires ICU hospitalization due to respiratory failure and mechanical ventilation. Coding Level of Care Code Acute Glass Installer Technician for Janice Long
[2020-07-26] MEDS: hyDRALAzine 20 mg/mL INJ 1 mL 10 MG IVP (12:15)
--- NOTE | 2020-07-26 12:42 | PC.NURSE ---
Update This nurse assisted RT at 1225 with extubating patient. Once pt was extubated 2L NC was applied. Patient tolerated well.
--- NOTE | 2020-07-26 16:45 | USCV_ITS ---
Elizabeth Lima Age: 75 Gender: F : 1945 Exam Date: 07/26/2020 08:31 Ordering Phys: Kristy Faye MD ([email or web address]) Technologist: Netta Guadalupe Exam Location: [facility] [place] Indication: SOB, Elevatet troponin BP: 115 / 54 HR: 51 Rhythm: Sinus Technical Quality: Adequate MEASUREMENTS (Male / Female) Normal Values 2D ECHO LV Diastolic Diameter PLAX 2.9 cm 4.2 - 5.9 / 3.9 - 5.3 cm LV Systolic Diameter PLAX 1.7 cm LV Chamber Size 3.8 cm IVS Diastolic Thickness 1.9 cm 0.6 - 1.0 / 0.6 - 0.9 cm IVS Systolic Thickness 2.6 cm LVPW Diastolic Thickness 1.3 cm 0.6 - 1.0 / 0.6 - 0.9 cm LVPW Systolic Thickness 1.3 cm RV Chamber Size 2.2 cm LVOT Diameter 1.7 cm LV Ejection Fraction 2D Teich 74.2 % LV Ejection Fraction MOD 2C 59.3 % LV Ejection Fraction 2C AL 58.4 % LA Diameter 3.1 cm LA Width 2.8 cm LA Height 4.8 cm RA Width 2.9 cm RA Height 3.6 cm Aorta at Sinotubular Diameter 2.1 cm M-MODE LV Diastolic Diameter MM 4.8 cm 4.2 - 5.9 / 3.9 - 5.3 cm LV Systolic Diameter MM 2.8 cm LV Ejection Fraction MM Teich 71.4 % IVS Diastolic Thickness MM 1.5 cm 0.6 - 1.0 / 0.6 - 0.9 cm IVS Systolic Thickness MM 1.9 cm LVPW Diastolic Thickness MM 1.6 cm 0.6 - 1.0 / 0.6 - 0.9 cm LVPW Systolic Thickness MM 2.0 cm RV Diastolic Diameter MM 1.2 cm Aortic Annulus Diameter 3.0 cm LA Ao Ratio MM 1.2 MV E Point Septal Separation 0.6 cm DOPPLER AV Peak Velocity 257.4 cm/s LVOT Peak Velocity 124.0 cm/s AV Area Cont Eq vti 1.1 cm squared AV Area Cont Eq pk 1.1 cm squared MV Peak Velocity 143.0 cm/s MV Area PHT 2.7 cm squared Mitral E to A Ratio 1.3 MV E' Velocity 76.0 cm/s Mitral E to MV E' Ratio 31.2 Mitral E to LV E' Lateral Ratio 26.7 Mitral E to LV E' Septal Ratio 37.6 TR Peak Velocity 256.1 cm/s TR Peak Gradient 26.2 mmHg TR Mean Velocity 204.4 cm/s TR Mean Gradient 16.8 mmHg TR Velocity Time Integral 87.7 cm TV Peak E Velocity 46.0 cm/s Right Atrial Pressure 15.0 mmHg Pulmonary Artery Systolic Pressu 41.2 mmHg PV Peak Velocity 74.0 cm/s RV Acceleration Time 0.1 s RV Ejection Time 0.3 s RV AcT/ET 0.3 FINDINGS Left Ventricle Small left ventricular cavity size. Moderately increased left ventricular wall thickness. Moderate concentric left ventricular hypertrophy. Normal left ventricle systolic function. Left ventricular ejection fraction estimated at 55%. There is possible mild hypokinesis of apical inferior and apical septal katz. grade II diastolic dysfunction, moderately elevated filling pressures. Right Ventricle Normal right ventricular size and systolic function, RVSP 41.2 mmHg. Right Atrium Normal right atrial size. Right atrial pressure estimated at 8 mmHg. Left Atrium Moderately increased left atrial size. Mitral Valve Mild mitral annular calcification. Mildly thickened mitral valve. No mitral valve stenosis. Mild mitral valve regurgitation. Aortic Valve Aortic valve not well visualized. Thickened and calcified aortic valve. Moderate aortic valve stenosis, mean gradient 17.1 mmHg, JOSE 1.1 cm squared (LVOT= 18 mm). Indexed aortic valve area of 0.7 cm squared/m squared Dimensionless valve index of 0.46. Mild aortic valve regurgitation. Tricuspid Valve Structurally normal tricuspid valve. No tricuspid valve stenosis. Mild tricuspid valve regurgitation. Pulmonic Valve Pulmonic valve not well visualized. Trace pulmonary valve regurgitation. Pericardium No pericardial effusion. Right pleural effusion. Aorta Normal-sized aortic root. Normal-sized inferior vena cava with less than 50% respiratory variation. CONCLUSIONS 1. Small left ventricular cavity size. Moderate concentric left ventricular hypertrophy. Normal left ventricle systolic function. Left ventricular ejection fraction estimated at 55%. There is possible mild hypokinesis of apical inferior and apical septal katz. grade II diastolic dysfunction, moderately elevated filling pressures. 2. Normal right ventricular size and systolic function. 3. Moderately increased left atrial size. 4. Mild mitral and tricuspid valve regurgitation. 5. Moderate aortic valve stenosis, mean gradient 17.1 mmHg, JOSE 1.1 cm squared (LVOT= 18 mm). Indexed aortic valve area of 0.7 cm squared/m squared. Dimensionless valve index of 0.46. Mild aortic valve regurgitation. 6. Right pleural effusion. 7. No prior similar studies to compare. Kristy Faye MD (Electronically Signed) Final Date: 26 July 2020 14:16 S
[2020-07-26] MEDS: TRAMadol 50 mg Tablet PO (17:27)
[2020-07-26 17:31] LABS: Albumin Level 3.2 g/dL (3.5-5.2); Anion Gap 18.7 (5-19); Blood Urea Nitrogen 49 mg/dL (8-23); Calcium 8.8 mg/dL (8.5-10.5); Carbon Dioxide 23 mmol/L (22-29); Chloride 92 mmol/L (98-107); Glucose 100 mg/dL (65-115); Phosphorus 5.5 mg/dL (2.5-4.5); Potassium 4.7 mmol/L (3.5-5.1); Sodium 129 mmol/L (136-145)
--- NOTE | 2020-07-26 18:00 | XRR_ITS ---
PROCEDURE INFORMATION: Exam: XR Chest, 1 View Exam date and time: 07/26/2020 5:42 AM Age: 75 years old Clinical indication: Device placement; Ett placement (vent status); Additional info: Manera edema evaluation, evaluation of endotracheal tube TECHNIQUE: Imaging protocol: XR of the chest Views: 1 view. COMPARISON: CR (CHEST, ) 07/25/2020 8:59 PM FINDINGS: Again demonstrated is mild vascular congestion. Mild ill-defined opacification at right lung base is most compatible with atelectasis/infiltrate with adjacent pleural effusion, again demonstrated. There is scattered pulmonary scarring bilaterally. Visualized cardiac silhouette size appears within normal limits. There are calcifications in the thoracic aorta. Similar position of the visualized support tubes. XR/XR chest 1V portable [id number] IMPRESSION: Again demonstrated is mild vascular congestion. Mild ill-defined opacification at right lung base is most compatible with atelectasis/infiltrate with adjacent pleural effusion, again demonstrated.
[2020-07-26 18:17] LABS: Urine Random Sodium 89 mmol/L
[2020-07-26 20:15] LABS: Glucose Point of Care 107 mg/dL (70-110)
[2020-07-26] MEDS: atorvastatin 40 mg Tablet 10 MG PO (21:21)
[2020-07-26] MEDS: acetaminophen 325 mg Tablet 650 MG PO (21:21)
[2020-07-27] VITALS (269 sets, daily range): BP systolic 104–176; BP diastolic 48–83; PULSE 49–81; RESP 12–26; TEMP 36.6–37.2; O2SAT 70–100
[2020-07-27] MEDS: TRAMadol 50 mg Tablet PO ×3 (00:07→13:45)
[2020-07-27 01:48] LABS: Glucose Point of Care 103 mg/dL (70-110)
[2020-07-27 04:44] LABS: Basophils # 0.1 10^3/uL (0.0-0.1); Basophils % 0.8 %; Eosinophils # 0.2 10^3/uL (0.0-0.8); Eosinophils % 2.3 %; Hematocrit 22.7 % (37.0-47.0); Hemoglobin 7.3 g/dL (11.5-15.3); Lymphocytes # 2.7 10^3/uL (0.8-4.8); Lymphocytes % 28.8 %; Mean Corpuscular HGB Conc 32.2 g/dL (30.0-36.0); Mean Corpuscular Hemoglobin 28.5 pg (28.0-34.0); Mean Corpuscular Volume 88.7 fL (81-99); Mean Platelet Volume 10.7 fL (7.4-10.4); Monocytes # 0.7 10^3/uL (0.2-0.9); Monocytes % 6.8 %; Neutrophils % 61.1 %; Nucleated Red Blood Cells % 0 %; Platelet Count 237 10^3/cmm (130-400); Red Blood Count 2.56 10^6/uL (4.1-5.3); Red Cell Distribution Width 13.5 % (12.1-15.1); White Blood Count 9.5 10^3/uL (4.0-10.0)
[2020-07-27 04:58] LABS: INR 1.11 (0.8-1.2)
[2020-07-27 05:00] LABS: Anion Gap 15.6 (5-19); Blood Urea Nitrogen 54 mg/dL (8-23); Calcium 8.5 mg/dL (8.5-10.5); Carbon Dioxide 24 mmol/L (22-29); Chloride 94 mmol/L (98-107); Fibrinogen 411 mg/dL (174-498); Glucose 97 mg/dL (65-115); Magnesium 1.9 mg/dL (1.7-2.3); Phosphorus 5.4 mg/dL (2.5-4.5); Potassium 4.6 mmol/L (3.5-5.1); Sodium 129 mmol/L (136-145)
[2020-07-27 05:10] LABS: D Dimer 5.84 ug/mIFEU (0-0.59)
[2020-07-27] MEDS: piperacillin-tazobactam 3.375 GM in sodium chloride 0.9% (plus) 50 ML IV ×2 (06:02→21:19)
[2020-07-27] MEDS: heparin 5,000 unit/mL INJ 1 mL 5000 UNIT SUBCUT ×3 (06:02→21:18)
[2020-07-27 06:15] LABS: Glucose Point of Care 114 mg/dL (70-110)
--- NOTE | 2020-07-27 07:54 | PM.CONSULT ---
Providers/Reason For Consult Consulting Physican/Specialty*: bob azul md / telenephrology Reason for Consult*: GERARD on CKD stage 3, hyponatremia Attending Physician: Darrell Gregory Primary Care Provider: Crystal Olivia MD History of Present Illness History of Present Illness Elizabeth Lima is a 75 year old female PVD, HTN, IDDM, CKD stage 2+, diastolic dysfunction, moderate . Regarding her Kidney fxn, in March 2020 cr was 1.1- 1.4 mg/dl s/p angiogram. Pt was admitted 07-23-20 for Lower ext angiogram. her cr pre-angio was 1.7 and she went home on 07-24-20 w/ cr 1.7. She presented to [facility] ER on 07-25-20 w/ severe Resp distress, flash pulm edema, HTN urgency. she was intubated, given lasix and cr kelly from 1.7- 2.6 mg/dl on 07-26 am to 3.1 mg/dl this am. lasix was held. Pt is extubated, feels better. resp status improved and BP is normal. Review of Systems General: Reports: 10 or more systems reviewed and unremarkable except in HPI and below Narrative: weak, sob, htn, edema, leg pains Meds/Allergies Home Medications and Allergies Home Medications Medication Instructions Recorded Confirmed Last Taken Type aspirin 81 mg tablet,delayed 81 mg PO BEDTIME 04/30/20 07/25/20 07/22/20 21:00 History release atorvastatin 10 mg PO BEDTIME 07/23/20 07/25/20 07/22/20 21:00 History gabapentin 200 mg PO BID 07/23/20 07/25/20 07/23/20 10:30 History amlodipine 5 mg PO DAILY #30 tab 07/24/20 07/25/20 Unknown Rx carvedilol [Coreg] 3.125 mg PO BID #60 tab 07/24/20 07/25/20 Unknown Rx valsartan 160 mg PO DAILY 07/25/20 07/25/20 Unknown History Allergies Allergy/AdvReac Type Severity Reaction Status Date / Time diclofenac [From Voltaren] Allergy Intermediate Wound Verified 06/18/20 13:48 metformin Allergy ADR-Diarrhe Verified 06/18/20 13:48 a mold Allergy Unknown Verified 06/18/20 13:48 Current Medications Current Medications Generic Name Dose Route Start Last Admin Trade Name Freq PRN Reason Stop Dose Admin Acetaminophen 650 mg 07/26/20 20:10 07/26/20 21:21 Acetaminophen 325 Mg Tablet PO 650 mg Q4H PRN Administration MILD PAIN OR INCREASE TEMP Atorvastatin Calcium 10 mg 07/25/20 21:00 07/26/20 21:21 Atorvastatin 40 Mg Tablet PO 10 mg BEDTIME KIMBERLY Administration Carvedilol 1.5625 mg 07/26/20 09:00 07/26/20 17:27 Carvedilol 3.125 Mg Tablet PO 1.5625 mg BID KIMBERLY Administration Gabapentin 200 mg 07/25/20 18:00 07/26/20 17:27 Gabapentin 100 Mg Capsule PO 200 mg BID KIMBERLY Administration Heparin Sodium (Beef Lung) 5,000 unit 07/25/20 14:00 07/27/20 06:02 Heparin 5,000 Unit/Ml Inj 1 Ml SUBCUT 5,000 unit Q8H KIMBERLY Administration Hydralazine HCl 10 mg 07/25/20 12:54 07/26/20 12:15 Hydralazine 20 Mg/Ml Inj 1 Ml IVP 10 mg Q4H PRN Administration SBP above 160 Propofol 1,000 mg in 100 mls @ 0 mls/hr 07/25/20 06:30 07/26/20 01:39 Diprivan IV 11.3 mls/hr .Q0M KIMBERLY Infusion As Directed Dopamine HCl/Dextrose 400 mg in 250 mls @ 11.056 mls/hr 07/25/20 09:15 07/26/20 19:53 Intropin Drip IV Not Given CONT KIMBERLY Protocol 5 MCG/KG/MIN Piperacillin Sod/Tazobactam 50 mls @ 12.5 mls/hr 07/26/20 18:00 07/27/20 06:02 Sod 3.375 gm/ Sodium Chloride IV 12.5 mls/hr Q12H KIMBERLY Administration Protocol Insulin Aspart 0 unit 07/25/20 13:00 07/27/20 06:14 Insulin Aspart 100 Unit/1 Ml SUBCUT Not Given Q6H KIMBERLY Protocol Tramadol HCl 50 mg 07/26/20 16:51 07/27/20 00:07 Tramadol 50 Mg Tablet PO 50 mg Q6H PRN Administration MODERATE PAIN PFSH Acute PFSH: Medical History CKD (chronic kidney disease) stage 3, GFR 30-59 ml/min Critical lower limb ischemia Diabetes mellitus Peripheral vascular disease Surgical History Hx of hysterectomy Family History Other Cancer Rheumatoid arthritis Social History Smoking and tobacco status: never smoked Alcohol intake: never Vitals/I&O/Wt Last Vital Signs Temp 97.9 F 07/27/20 03:15 Pulse 55 L 07/27/20 07:00 Resp 12 07/26/20 11:52 BP 135/54 07/27/20 07:00 Pulse Ox 95 07/27/20 07:00 07/26/20 07/27/20 07/27/20 22:59 06:59 14:59 Intake Total 50 / 50 240 / 290 Output Total 1050 / 1150 1075 / 2225 Balance -1000 / -1100 -835 / -1935 Weight last 48 hrs Weight 56.926 kg Weight 59.194 kg Weight 62.851 kg Physical Exam Narrative: EXAM NARRATIVE: comfortable in bed, NARD- not using O2 VSS heent - nc/at, eomi, anicteric neck supple lungs- clear heart reg, +HSm, +s1, s2 abd soft, nt, nd, +BS ext b/l edema in arms leg dm changes poor DP and PT pulses neuro- neuropathy,a,a, o x 3 Urinary Catheter Management^: Mcfarland: Cath Placed During This Visit: yes Reason for Continuing Indwelling Catheter: Accurate Measurement of Urinary Output in Critically Ill Patients Urinary Catheter Date of Insertion: 07/25/20 Urinary Catheter Time of Insertion: 07:10 Data Micro: Micro: Microbiology 07/25/20 17:50 Blood Culture - Pr eliminary Blood NEGATIVE TO NISHI E 07/25/20 17:55 Blood Culture - Pr eliminary Blood NEGATIVE TO NISHI E 07/25/20 08:14 Gram Stain - Final Sputum - Endotrac heal Tube Aspirate Sputum Culture - P reliminary A&P Additional A&P Information 1. GERARD - likely SHAILA. Given htn, flash pulm edema, and known PVD- check Renal artery duplex for possible -check c3, c4- Q embolic disease- less likely -check renal us -monitor chemistries - cr should hopefully improve soon 2. hyponatremia- from GERARD, lasix, volume overload. na seems to be approx 130 for last 5 months -check urine lytes. ur na was 89- no ur osm or cr- difficult to interpet- unlikely prerenal -check tsh 3, htn improved 4. anemia- check iron studies and SPEP w/ GERARD 5. hyperphosphatemia- low phos diet- may need a binder discussed w/ pt and RN Consult Attestations Medical Necessity Statement: gerard, htn, hyponatremia, resp distress Time Spent in Patient Care: Greater than 35 minutes Coding Level of Care Code Acute Clothes Marker for Janice Long
[2020-07-27] MEDS: carvedilol 3.125 mg Tablet 1.5625 MG PO (07:59)
[2020-07-27] MEDS: gabapentin 100 mg Capsule 200 MG PO ×2 (07:59→18:44)
[2020-07-27] MEDS: aspirin 325 mg EC Tablet PO (07:59)
--- NOTE | 2020-07-27 08:21 | P.PN_ITS ---
Subjective Subjective: Interval history: Looking at all the notes I think there is some clarification that is needed. Patient did not have peripheral angiogram on 23 July. She was admitted for pre-procedure hydration but since her renal function did not improve and she did not get angiogram and was discharged home with the plan of doing the procedure at a later date. She has had no procedures requiring contrast since March 2020 when she had her last peripheral angiogram. patient feels well. Denies having any chest pain and states her breathing has improved. She complains of some nausea and dizziness but attributes that to pain medications. She received hydralazine 10 mg IV x1 yesterday. Urine output 2100 mL; she is -1.5 L in last 24 hours. Weight is 125 pounds as compared to yesterday's weight of 130 pound. Length of stay she is -1.8 L and urine output of 3.2 L. Medications: Reviewed: Yes Medication Review Details: Current Medications Acetaminophen (Acetaminophen 325 Mg Tablet) 650 mg PO Q4H PRN PRN Reason: MILD PAIN OR INCREASE TEMP Last Admin: 07/26/20 21:21 Dose: 650 mg Documented by: Aspirin (Aspirin 325 Mg Ec Tablet) 325 mg PO DAILY [facility] Last Admin: 07/27/20 07:59 Dose: 325 mg Documented by: Atorvastatin Calcium (Atorvastatin 40 Mg Tablet) 10 mg PO BEDTIME KIMBERLY Last Admin: 07/26/20 21:21 Dose: 10 mg Documented by: Carvedilol (Carvedilol 3.125 Mg Tablet) 1.5625 mg PO BID KIMBERLY Last Admin: 07/27/20 07:59 Dose: 1.5625 mg Documented by: Dextrose (Dextrose 50% Syringe 50 Ml) 25 ml IVP ONCE PRN; Protocol PRN Reason: hypoglycemia protocol Dextrose (Dextrose 50% Syringe 50 Ml) 50 ml IVP PRN PRN; Protocol PRN Reason: hypoglycemia protocol Gabapentin (Gabapentin 100 Mg Capsule) 200 mg PO BID [facility] Last Admin: 07/27/20 07:59 Dose: 200 mg Documented by: Glucagon (Glucagon 1 Mg/Ml Inj 1 Ml) 1 mg IM ONCE PRN; Protocol PRN Reason: Adult Acute Hypoglycemia Prot. Heparin Sodium (Beef Lung) (Heparin 5,000 Unit/Ml Inj 1 Ml) 5,000 unit SUBCUT Q8H [facility] Last Admin: 07/27/20 06:02 Dose: 5,000 unit Documented by: Hydralazine HCl (Hydralazine 20 Mg/Ml Inj 1 Ml) 10 mg IVP Q4H PRN PRN Reason: SBP above 160 Last Admin: 07/26/20 12:15 Dose: 10 mg Documented by: Midazolam HCl 100 mg/ Sodium (Chloride) 100 mls @ 0 mls/hr IV .Q0M KIMBERLY; Protocol Propofol (Diprivan) 1,000 mg in 100 mls @ 0 mls/hr IV .Q0M KIMBERLY Last Infusion: 07/26/20 01:39 Dose: 11.3 mls/hr Documented by: Dopamine HCl/Dextrose (Intropin Drip) 400 mg in 250 mls @ 11.056 mls/hr IV CONT KIMBERLY; Protocol Last Admin: 07/27/20 10:54 Dose: Not Given Documented by: Piperacillin Sod/Tazobactam (Sod 3.375 gm/ Sodium Chloride) 50 mls @ 12.5 mls/hr IV Q12H KIMBERLY; Protocol Last Admin: 07/27/20 06:02 Dose: 12.5 mls/hr Documented by: Insulin Aspart (Insulin Aspart 100 Unit/1 Ml) 0 unit SUBCUT Q6H KIMBERLY; Protocol Last Admin: 07/27/20 06:14 Dose: Not Given Documented by: Tramadol HCl (Tramadol 50 Mg Tablet) 50 mg PO Q6H PRN PRN Reason: MODERATE PAIN Last Admin: 07/27/20 07:58 Dose: 50 mg Documented by: Vitals/I&O/Wt Last Vital Signs Temp 97.9 F 07/27/20 03:15 Pulse 55 L 07/27/20 07:00 Resp 12 07/26/20 11:52 BP 135/54 07/27/20 07:00 Pulse Ox 95 07/27/20 07:00 07/26/20 07/27/20 07/27/20 22:59 06:59 14:59 Intake Total 50 / 50 240 / 290 Output Total 1050 / 1150 1075 / 2225 Balance -1000 / -1100 -835 / -1935 Weight last 48 hrs Weight 125 lb 8 oz Weight 130 lb 8 oz Weight 138 lb 9 oz Physical Exam Narrative: EXAM NARRATIVE: GENERAL: Averagely built and averagely nourished, sitting in chair at the time of evaluation HEENT: No pallor or icterus. NECK: No JVD appreciated. CARDIOVASCULAR SYSTEM: S1-S2 regular. No S3 or S4 present. Grade 3/6 harsh ejection systolic murmur in aortic area with radiation to carotids. Excoriation noticed on upper chest. RESPIRATORY SYSTEM: Chest clear to auscultation anteriorly. No use of accessory muscles. ABDOMEN: Soft, nontender and nondistended. Normal bowel sounds present. EXTREMITIES: No cyanosis or clubbing. No edema. Monophasic Doppler pulses DP and PT bilaterally. Left hand swollen at IV access site. GLOBAL DIRECTOR AIR AND CLIMATE CHANGE: Patient is alert oriented ?3. No focal neurological deficits. SKIN: Normal turgor and temperature. No breakdown, rash or nail changes noted. PSYCH: Normal insight and judgment. Urinary Catheter Management^: Mcfarland: Cath Placed During This Visit: yes Reason for Continuing Indwelling Catheter: Accurate Measurement of Urinary Output in Critically Ill Patients Urinary Catheter Date of Insertion: 07/25/20 Urinary Catheter Time of Insertion: 07:10 Data : 07/27/20 04:15 07/27/20 04:15 Micro: Microbiology 07/25/20 17:50 Blood Culture - Preliminary Blood NEGATIVE TO DATE 07/25/20 17:55 Blood Culture - Preliminary Blood NEGATIVE TO DATE 07/25/20 08:14 Gram Stain - Final Sputum - Endotracheal Tube Aspirate Sputum Culture - Preliminary Other data: CXR: Radiologist's impression: CXR IMPRESSION: Again demonstrated is mild vascular congestion. Mild ill-defined opacification at right lung base is most compatible with atelectasis/infiltrate with adjacent pleural effusion, again demonstrated. Attestation for Other Data: I personally reviewed and interpreted the following: Other data: Echocardiogram 26 July 2020 CONCLUSIONS 1. Small left ventricular cavity size. Moderate concentric left ventricular hypertrophy. Normal left ventricle systolic function. Left ventricular ejection fraction estimated at 55%. There is possible mild hypokinesis of apical inferior and apical septal katz. grade II diastolic dysfunction, moderately elevated filling pressures. 2. Normal right ventricular size and systolic function. 3. Moderately increased left atrial size. 4. Mild mitral and tricuspid valve regurgitation. 5. Moderate aortic valve stenosis, mean gradient 17.1 mmHg, JOSE 1.1 cm squared (LVOT= 18 mm). Indexed aortic valve area of 0.7 cm squared/m squared. Dimensionless valve index of 0.46. Mild aortic valve regurgitation. 6. Right pleural effusion. 7. No prior similar studies to compare. A&P Assessment and plan (1) Acute respiratory failure: In setting of flash pulmonary edema' -resolved. Patient has been extubated. Status: Acute (2) NSTEMI (non-ST elevated myocardial infarction): Type I versus type II in setting of hypoxia and markedly elevated blood pressure. -continue aspirin, statin and beta-diogenes -Echocardiogram with preserved left ventricle systolic function with possible hypokinesis of apical inferior and apical septal katz. -Given her extensive PAD as well as wall motion abnormality on her echocardiogram there is a high likelihood that she has coronary artery disease. -I think she would benefit from stress testing for further risk stratification. -I will plan for stress test possibly on Monday once anemia is corrected. Status: Acute (3) Pulmonary edema: Received Lasix 20 mg IV yesterday. -Hold further Lasix today. She is still net negative. -Closely monitor urine output. -Agree with doing renal arterial Doppler to assess for renal artery stenosis given concern for flash pulmonary edema and worsening renal function. Status: Acute Qualifiers: Chronicity: acute Qualified Code(s): J81.0 - Acute pulmonary edema (4) Peripheral vascular disease: Plan for peripheral angiogram possibly in next few weeks with Dr. Steele Status: Acute (5) Essential hypertension: Her elevated blood pressure likely in setting of hypoxia and respiratory distress as it came down to 130s without any antihypertensives. -She received hydralazine IV yesterday. Blood pressure in normal range today. Plan to add low-dose amlodipine starting tomorrow. -Continue to monitor her blood pressure closely. Continue to hold off on valsartan. Status: Acute (6) Hyperlipidemia: Status: Acute Qualifiers: Hyperlipidemia type: unspecified Qualified Code(s): E78.5 - Hyperlipidemia, unspecified (7) Diabetes mellitus: Status: Acute Qualifiers: Diabetes mellitus complication detail: with chronic kidney disease Diabetes mellitus complication status: with kidney complications Diabetes mellitus alf insulin use: without alf use Diabetes mellitus type: type 2 Additional A&P Information GERARD on CKD stage III : BUN is increased 54<-- 40 <--32 and creatinine 3.1<-- 2.6 <--1.9 today. Avoid any nephrotoxic agents. Renal on board Bradycardia: Stop Coreg and transition to metoprolol succinate 25 mg daily. Moderate aortic stenosis: hyperkalemia: Agree with holding valsartan Hyponatremia: Sodium level 129 today. Leukocytosis : Currently being empirically covered with Zosyn for possible sepsis, resolved Normocytic anemia: Hemoglobin dropped to 7.3 <--7.7 from 9.9 few days back. Continue to monitor closely. No signs of active bleed. I think she would benefit from packed red blood cell transfusion to maintain hemoglobin around 10. FOBT. Thrombocytosis: Resolved Right foot ulcer: Being followed by wound care. Thank you for allowing me to participate in patient's care. Please feel free to call with questions or concerns Attestations Medical Necessity Statement*: Patient needs hospital stay for worsening renal function, , NSTEMI and pulmonary edema. Time Spent in Patient Care: 16 - 35 minutes (>than 50% of time spent in counselling and/or direct pt care on unit) . Coding Level of Care Code Acute Metal Flow Coordinator for Janice Long Diagnoses Acute respiratory failure J96.00 NSTEMI (non-ST elevated myocardial infarction) I21.4 Pulmonary edema J81.0 Chronicity: acute Peripheral vascular disease I73.9 Essential hypertension I10 Hyperlipidemia E78.5 Hyperlipidemia type: unspecified Diabetes mellitus E11.9 Diabetes mellitus complication detail: with chronic kidney disease Diabetes mellitus complication status: with kidney complications Diabetes mellitus alf insulin use: without alf use Diabetes mellitus type: type 2 Time Spent (min) 30
--- NOTE | 2020-07-27 09:33 | PC.CHAP ---
Pastoral Care Encounter/Spiritual Assessment Type of Contact [] Declined shower enclosure installer visit [] Patient/Family/Request visit [] Outpatient visit [] Follow-up visit [] Physician referral [] Code/Alert [] Routine visit [] Staff referral [] Actively dying [] Patient sleeping [] Family support [] [] Out of room [] Palliative care [] [] Receiving care in room [] Pre-surgical visit [] Trauma [] Long length of stay [] ICU visit [] Other: Relational/Emotional Strength [] Patient feels connected with others/family/visitors/staff [] Distress [] Loneliness/isolation [] Abandonment Spirituality of Patient [] Person of Niyah [] Attends Buddhist of their Niyah [] Believes in Prayer [] Reads Bible or Christian materials [] There are Spiritual issues to be addressed Fusing Line Inspector Interventions [x] Prayer [] Active listening [] Non-anxious presence [] Spiritual/emotional support [] Crisis/trauma care [] Spiritual counseling [] Bereavement support [] Provided bereavement packet [] Provided Bible/devotional materials [] Provided toy/stuffed animal, coloring book to patient or family member [] Provided Communion [] Anointing/Gering [] Salvation [x] Completed spiritual assessment [] Other: Impact on Illness or Injury [] Angry [] Fearful [] Anxious [] Often cries [] Exhaustion [] Unable to work [] Unable to attend yazidism [] Unable to walk/stand [] Unable to read [] Unable to drive [] Unable to eat/drink [] Unable to sleep [] Unable to be with family [] Patient intubated [] Other: Summary Time spent with patient
[2020-07-27 10:24] LABS: Ferritin 251 ng/mL (15-150); Iron 38 ug/dL (37-145); Percent Saturation 21.2 % (20-50); Total Iron Binding Capacity 179 mcg/dl; Transferrin 155 mg/dL (200-360); Unsaturated Iron Binding 141 ug/dL (112-347)
[2020-07-27 10:32] LABS: Vitamin B12 804 pg/mL (232-1245)
[2020-07-27 10:34] LABS: Folate Level 12.4 ng/mL (4.8-37.3)
--- NOTE | 2020-07-27 11:42 | P.PN_ITS ---
Subjective Subjective: Interval history: Patient was extubated yesterday. Doing well. No problems with breathing. Denies any chest pain. No fever or chills. No nausea or vomiting. No diarrhea. Medications: Reviewed: Yes Medication Review Details: Generic Name Dose Route Start Last Admin Trade Name Freq PRN Reason Stop Dose Admin Acetaminophen 650 mg 07/26/20 20:10 07/26/20 21:21 Acetaminophen 32 5 Mg Tablet PO 650 mg Q4H PRN Administration MILD PAIN OR INCR EASE TEMP Aspirin 325 mg 07/27/20 09:00 07/27/20 07:59 Aspirin 325 Mg E c Tablet PO 325 mg DAILY [facility]IMBERLY Administration Atorvastatin Calci um 10 mg 07/25/20 21:00 07/26/20 21:21 Atorvastatin 40 Mg Tablet PO 10 mg BEDTIME KIMBERLY Administration Carvedilol 1.5625 mg 07/26/20 09:00 07/27/20 07:59 Carvedilol 3.125 Mg Tablet PO 1.5625 mg BID KIMBERLY Administration Gabapentin 200 mg 07/25/20 18:00 07/27/20 07:59 Gabapentin 100 M g Capsule PO 200 mg BID KIMBERLY Administration Heparin Sodium (Be ef Lung) 5,000 unit 07/25/20 14:00 07/27/20 06:02 Heparin 5,000 Un it/Ml Inj 1 Ml SUBCUT 5,000 unit Q8H KIMBERLY Administration Hydralazine HCl 10 mg 07/25/20 12:54 07/26/20 12:15 Hydralazine 20 M g/Ml Inj 1 Ml IVP 10 mg Q4H PRN Administration SBP above 160 Propofol 1,000 mg in 100 m ls @ 0 mls/hr 07/25/20 06:30 07/26/20 01:39 Diprivan IV 11.3 mls/hr .Q0M KIMBERLY Infusion As Directed Dopamine HCl/Dextr ose 400 mg in 250 mls @ 11.056 mls/hr 07/25/20 09:15 07/27/20 10:54 Intropin Drip IV Not Given CONT KIMBERLY Protocol 5 MCG/KG/MIN Piperacillin Sod/T azobactam 50 mls @ 12.5 mls /hr 07/26/20 18:00 07/27/20 06:02 Sod 3.375 gm/ So dium Chloride IV 12.5 mls/hr Q12H KIMBERLY Administration Protocol Insulin Aspart 0 unit 07/25/20 13:00 07/27/20 06:14 Insulin Aspart 1 00 Unit/1 Ml SUBCUT Not Given Q6H KIMBERLY Protocol Tramadol HCl 50 mg 07/26/20 16:51 07/27/20 07:58 Tramadol 50 Mg T ablet PO 50 mg Q6H PRN Administration MODERATE PAIN Vitals/I&O/Wt Last Vital Signs Temp 97.9 F 07/27/20 03:15 Pulse 52 L 07/27/20 11:10 Resp 12 07/26/20 11:52 BP 118/51 07/27/20 11:10 Pulse Ox 96 07/27/20 11:10 07/26/20 07/27/20 07/27/20 22:59 06:59 14:59 Intake Total 50 / 50 240 / 290 240 / 240 Output Total 1050 / 1150 1075 / 2225 Balance -1000 / -1100 -835 / -1935 240 / 240 Weight last 48 hrs Weight 56.926 kg Weight 59.194 kg Physical Exam Narrative: EXAM NARRATIVE: Awake alert and oriented. No acute distress. Skin is warm and dry. Moist mucous membranes. Eyes Diamond, sclerae normal Neck supple. No JVD Lungs air conduction to all lung porter. Clear. No significant crackles or wheezes. Heart S1, S2, regular Abdomen soft, nontender, bowel sounds are present extremities bilateral pedal edema is present. No cyanosis or calf tenderness bilaterally. Chronic heel ulcers are present. No active discharge or bleeding. Urinary Catheter Management^: Mcfarland: Cath Placed During This Visit: yes Reason for Continuing Indwelling Catheter: Accurate Measurement of Urinary Output in Critically Ill Patients Urinary Catheter Date of Insertion: 07/25/20 Urinary Catheter Time of Insertion: 07:10 Data : 07/27/20 04:15 07/27/20 04:15 Micro: Microbiology 07/25/20 08:14 Gram Stain - Final Sputum - Endotracheal Tube Aspirate Sputum Culture - Final 07/25/20 17:50 Blood Culture - Preliminary Blood NEGATIVE TO DATE 07/25/20 17:55 Blood Culture - Preliminary Blood NEGATIVE TO DATE A&P Additional A&P Information 74-year-old female with past medical history of severe peripheral vascular disease, chronic kidney disease, hypertension who underwent angiography couple of days ago in this hospital and was discharged yesterday. Today she presented with acute severe respiratory distress/labored breathing. Acute hypercapnic respiratory failure probably secondary to pulmonary edema. Her blood pressure is at 200 on presentation. Fluid overload and malignant hy pertension are suspected as triggering factor for her pulmonary edema/CHF. Currently resolved. Extubated and stable. Pulmonary edema/fluid overload. Resolved with diuresis. We appreciate Dr. Carla beyer's input and recommendations. Possible infection/sepsis. I do not think that she is in septic shock. Most likely the short episode of hypotension was related to sedation. Leukocytosis is resolved. Possible aspiration pneumonia. Currently on Zosyn. Probably will switch her to p.o. Augmentin tomorrow. Abnormal troponin elevation. Demand ischemia versus hypertensive emergency with endorgan damage is suspected. Continue management per Dr. Faye's recommendations. DVT prophylaxis. Heparin. Acute kidney injury on top of chronic kidney disease. SHAILA is suspected. Appreciate Dr. Kahn's input. Additional testing is pending. Hyperkalemia. Resolved. Hyponatremia. 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 Mild and stable. Management per Anemia probably chronic. Monitor. Diabetes. Insulin sliding scale. Hypertension. As needed hydralazine. The plan of care was discussed with multidisciplinary team. Discussed with the patient. Attestations Medical Necessity Statement*: The plan of care requires inpatient treatments and testing. Coding Level of Care Code Acute Gold Reclaimer for Janice Long
[2020-07-27 13:35] LABS: Glucose Point of Care 127 mg/dL (70-110)
[2020-07-27 14:24] LABS: Urine Creatinine 94 mg/dL (28-217)
--- NOTE | 2020-07-27 15:36 | PC.NURSE ---
24 hour urine Urine collection start time is 1530
[2020-07-27] MEDS: sodium chloride 0.9% (100 ml) 100 ML (16:48)
--- NOTE | 2020-07-27 17:12 | PC.NURSE ---
Blood started at 1700
[2020-07-27 19:25] LABS: Glucose Point of Care 112 mg/dL (70-110)
--- NOTE | 2020-07-27 20:53 | PC.NURSE ---
Report Called to Alfonso ALFONSO in [facility] and patient was transferred by bed to [facility] at 2044.
[2020-07-27] MEDS: atorvastatin 40 mg Tablet 10 MG PO (21:18)
[2020-07-28] VITALS (37 sets, daily range): BP systolic 124–179; BP diastolic 50–70; PULSE 50–73; RESP 9–23; TEMP 35.8–36.7; O2SAT 89–100
[2020-07-28 04:48] LABS: Basophils # 0.1 10^3/uL (0.0-0.1); Basophils % 0.9 %; Eosinophils # 0.5 10^3/uL (0.0-0.8); Eosinophils % 4.5 %; Hematocrit 26.2 % (37.0-47.0); Hemoglobin 8.5 g/dL (11.5-15.3); Lymphocytes # 2.3 10^3/uL (0.8-4.8); Lymphocytes % 22.9 %; Mean Corpuscular HGB Conc 32.4 g/dL (30.0-36.0); Mean Corpuscular Hemoglobin 27.9 pg (28.0-34.0); Mean Corpuscular Volume 85.9 fL (81-99); Mean Platelet Volume 10.5 fL (7.4-10.4); Monocytes # 0.7 10^3/uL (0.2-0.9); Monocytes % 7.2 %; Neutrophils # 6.49 10^3/uL (1.8-7.7); Neutrophils % 64.2 %; Nucleated Red Blood Cells % 0 %; Platelet Count 257 10^3/cmm (130-400); Red Blood Count 3.05 10^6/uL (4.1-5.3); Red Cell Distribution Width 14.6 % (12.1-15.1); White Blood Count 10.1 10^3/uL (4.0-10.0)
[2020-07-28] MEDS: TRAMadol 50 mg Tablet PO ×3 (04:53→20:07)
[2020-07-28 05:12] LABS: D Dimer 4.51 ug/mIFEU (0-0.59)
[2020-07-28 05:16] LABS: Alanine Aminotransferase 12 U/L (0-33); Albumin Level 3.2 g/dL (3.5-5.2); Alkaline Phosphatase 51 IU/L (35-105); Anion Gap 16.6 (5-19); Aspartate Amino Transferase 18 U/L (0-32); Blood Urea Nitrogen 56 mg/dL (8-23); Calcium 8.4 mg/dL (8.5-10.5); Carbon Dioxide 21 mmol/L (22-29); Chloride 92 mmol/L (98-107); Ferritin 285 ng/mL (15-150); Globulin 2.9 g/dL (1.3-4.6); Glucose 93 mg/dL (65-115); Iron 118 ug/dL (37-145); Magnesium 1.9 mg/dL (1.7-2.3); Osmolality Calculated 275 mOsm/kg (285-295); Percent Saturation 63.4 % (20-50); Phosphorus 5.3 mg/dL (2.5-4.5); Potassium 4.6 mmol/L (3.5-5.1); Sodium 125 mmol/L (136-145); Total Bilirubin 0.4 mg/dL (0.15-1.2); Total Iron Binding Capacity 186 mcg/dl; Total Protein 6.1 g/dL (6.6-8.7); Unsaturated Iron Binding 68 ug/dL (112-347)
[2020-07-28 05:17] LABS: Calcium 8.6 mg/dL (8.5-10.5)
[2020-07-28 05:40] LABS: Parathyroid Hormone 48.9 pg/mL (15-65)
[2020-07-28] MEDS: piperacillin-tazobactam 3.375 GM in sodium chloride 0.9% (plus) 50 ML IV (05:49)
[2020-07-28] MEDS: heparin 5,000 unit/mL INJ 1 mL 5000 UNIT SUBCUT ×3 (05:49→21:28)
--- NOTE | 2020-07-28 06:00 | USCV_ITS ---
Elizabeth Lima Age: 75 Gender: F : 1945 Exam Date: 07/28/2020 06:37 Ordering Phys: Wade Khan MD Technologist: Serena Kaminski Exam Location: [facility] [place] Indication: HTN Aortic Velocity @ SMA (cm/s) 95.6 RIGHT KIDNEY LEFT KIDNEY Velocity (cm/s) Velocity (cm/s) Sys/Rapp Sys/Rapp Resistive Index Resistive Index 85.0 / 15.6 0.82 Proximal Renal Artery 30.8 / 8.5 0.72 70.5 / 13.5 0.81 Mid Renal Artery 28.0 / 8.1 0.71 48.7 / 14.5 0.70 Distal Renal Artery 45.3 / 9.8 0.78 82.7 / 16.9 0.80 Hilar 34.4 / 14.6 0.57 17.0 / 8.1 0.53 Upper Pole 18.8 / 8.1 0.57 39.4 / 15.0 0.62 Mid Pole 18.0 / 10.0 0.45 33.0 / 11.5 0.65 Lower Pole 30.0 / 11.7 0.61 0.90 Renal Aortic Ratio 0.47 Accleration Index (cm/sec2) 1539.0 Hilar 523.00 0 367.00 Upper Pole 157.00 1000.0 Mid Pole 177.00 0 1818.0 Lower Pole 528.00 0 94.2 Kidney Length (mm) 103.7 FINDINGS No comparison. No evidence of abdominal aortic aneurysm. There is no evidence of hemodynamically significant right renal artery stenosis. There is no evidence of hemodynamically significant left renal artery stenosis. CONCLUSIONS There is no sonographic evidence of hemodynamically significant renal artery stenosis bilaterally. Dr. Amber Cota DO (Electronically Signed) Final Date: 28 July 2020 09:02 S
--- NOTE | 2020-07-28 06:00 | US_ITS ---
WS: [id number] RENAL ULTRASOUND HISTORY: renita, htn COMPARISON: None available. TECHNIQUE: 2-D and color Doppler imaging of the kidney submitted. Right kidney: 9.3 cm x 5.7 cm x 6.5 cm. Normal size and echogenicity. No mass or hydronephrosis. Left kidney: 10.3 cm x 5.5 cm x 6.0 cm. Normal size kidney are normal echogenicity. Central pelvic cyst measures 1.0 x 1.0 x 1.2 cm. Aorta: Normal. Urinary Bladder: Urinary bladder is nondistended. There is a Mcfarland catheter present. US/US renal BI* [id number] IMPRESSION: 1. No evidence for renal insufficiency or obstruction. 2. Small central LEFT renal pelvic cyst.
[2020-07-28 06:59] LABS: Glucose Point of Care 101 mg/dL (70-110)
--- NOTE | 2020-07-28 07:36 | PM.PN ---
Subjective Subjective: Interval history: states she is feeling better. has some edema. no n/v/f/c/serrano/d/cp/sob. Medications: Reviewed: Yes Medication Review Details: Current Medications Acetaminophen (Acetaminophen 325 Mg Tablet) 650 mg PO Q4H PRN PRN Reason: MILD PAIN OR INCREASE TEMP Last Admin: 07/26/20 21:21 Dose: 650 mg Documented by: Amlodipine Besylate (Amlodipine 5 Mg Tablet) 2.5 mg PO DAILY ON LICENSE OF [facility] Aspirin (Aspirin 325 Mg Ec Tablet) 325 mg PO DAILY ON LICENSE OF [facility] Last Admin: 07/27/20 07:59 Dose: 325 mg Documented by: Atorvastatin Calcium (Atorvastatin 40 Mg Tablet) 10 mg PO BEDTIME KIMBERLY Last Admin: 07/27/20 21:18 Dose: 10 mg Documented by: Dextrose (Dextrose 50% Syringe 50 Ml) 25 ml IVP ONCE PRN; Protocol PRN Reason: hypoglycemia protocol Dextrose (Dextrose 50% Syringe 50 Ml) 50 ml IVP PRN PRN; Protocol PRN Reason: hypoglycemia protocol Gabapentin (Gabapentin 100 Mg Capsule) 200 mg PO BID ON LICENSE OF [facility] Last Admin: 07/27/20 18:44 Dose: 200 mg Documented by: Glucagon (Glucagon 1 Mg/Ml Inj 1 Ml) 1 mg IM ONCE PRN; Protocol PRN Reason: Adult Acute Hypoglycemia Prot. Heparin Sodium (Beef Lung) (Heparin 5,000 Unit/Ml Inj 1 Ml) 5,000 unit SUBCUT Q8H [facility]IMBELRY Last Admin: 07/28/20 05:49 Dose: 5,000 unit Documented by: Hydralazine HCl (Hydralazine 20 Mg/Ml Inj 1 Ml) 10 mg IVP Q4H PRN PRN Reason: SBP above 160 Last Admin: 07/26/20 12:15 Dose: 10 mg Documented by: Midazolam HCl 100 mg/ Sodium (Chloride) 100 mls @ 0 mls/hr IV .Q0M KIMBERLY; Protocol Propofol (Diprivan) 1,000 mg in 100 mls @ 0 mls/hr IV .Q0M KIMBERLY Last Infusion: 07/26/20 01:39 Dose: 11.3 mls/hr Documented by: Dopamine HCl/Dextrose (Intropin Drip) 400 mg in 250 mls @ 11.056 mls/hr IV CONT KIMBERLY; Protocol Last Admin: 07/27/20 10:54 Dose: Not Given Documented by: Piperacillin Sod/Tazobactam (Sod 3.375 gm/ Sodium Chloride) 50 mls @ 12.5 mls/hr IV Q12H ON LICENSE OF [facility]; Protocol Last Admin: 07/28/20 05:49 Dose: 12.5 mls/hr Documented by: Insulin Aspart (Insulin Aspart 100 Unit/1 Ml) 0 unit SUBCUT Q6H KIMBERLY; Protocol Last Admin: 07/28/20 01:17 Dose: Not Given Documented by: Metoprolol Succinate (Metoprolol Succinate Er (24 Hr) 25 Mg Tablet) 25 mg PO DAILY KIMBERLY Tramadol HCl (Tramadol 50 Mg Tablet) 50 mg PO Q6H PRN PRN Reason: MODERATE PAIN Last Admin: 07/28/20 04:53 Dose: 50 mg Documented by: Vitals/I&O/Wt Last Vital Signs Temp 96.9 F L 07/28/20 07:31 Pulse 55 L 07/28/20 07:31 Resp 18 07/28/20 07:31 BP 167/67 07/28/20 07:31 Pulse Ox 98 07/28/20 07:31 07/27/20 07/28/20 07/28/20 22:59 06:59 14:59 Intake Total 850 / 1140 48.958 / 1188.958 Output Total 150 / 150 500 / 650 Balance 700 / 990 -451.042 / 538.958 Weight last 48 hrs Weight 56.926 kg Physical Exam Narrative: EXAM NARRATIVE: comfortable in bed, NARD- not using O2 VS noted- SBP remains elevated- high pulse pressure heent - nc/at, eomi, anicteric neck supple lungs- clear heart reg, +HSm, +s1, s2 abd soft, nt, nd, +BS ext b/l edema in arms leg DM changes poor DP and PT pulses neuro- neuropathy,a,a, o x 3 Urinary Catheter Management^: Mcfarland: Cath Placed During This Visit: yes Reason for Continuing Indwelling Catheter: Accurate Measurement of Urinary Output in Critically Ill Patients Urinary Catheter Date of Insertion: 07/25/20 Urinary Catheter Time of Insertion: 07:10 Data : 07/28/20 04:15 07/28/20 04:15 Micro: Microbiology 07/25/20 08:14 Gram Stain - Final Sputum - Endotracheal Tube Aspirate Sputum Culture - Final A&P Additional A&P Information 1. GERARD -- she did not get a recent angiogram- it was cancelled as cr was already rising last week. - Given htn, flash pulm edema, and known PVD- check Renal artery duplex for possible DALE -check renal us -monitor chemistries - cr should hopefully improve soon -cr baseline is 1.2 on 03/26/20. was 1.7 already on 07-21-20. was 1.9 on admission- kelly w/ diuresis - monitor chemistries - Q ATN from normalizing BP - Q TMA from HTN urgency- less likely -await ua -await spep/ upep- given anemia and GERARD -normal ck -monitor UOP and chemistries 2. hyponatremia- from GERARD, lasix, volume overload. na seems to be approx 130 for last 5 months -check urine lytes. ur na was 89- no ur osm or cr- difficult to interpet- unlikely prerenal -check tsh -fluird restrict -s/p lasix -give ns ivf and monitor -d/c dopamine- can cause hyponatremia -may need salt tabs - Q if from 3, htn improved 4. anemia- check iron studies and SPEP w/ GERARD -high % sat, ferritin 285- unblikely CRYSTAL 5. hyperphosphatemia- low phos diet- may need a binder 6. Diastolic dysfunction grade 2 and moderate - per cardiology discussed w/ pt and RN Attestations Medical Necessity Statement*: gerard, , hyponatremia, htn, diastolic dysfunction Time Spent in Patient Care: Greater than 35 minutes Coding Level of Care Code Acute Material Control Analyst for Janice Long
--- NOTE | 2020-07-28 08:38 | PC.CHAP ---
Pastoral Care Encounter/Spiritual Assessment Type of Contact [] Declined tankman visit [] Patient/Family/Request visit [] Outpatient visit [] Follow-up visit [] Physician referral [] Code/Alert [x] Routine visit [] Staff referral [] Actively dying [] Patient sleeping [] Family support [] [] Out of room [] Palliative care [] [] Receiving care in room [] Pre-surgical visit [] Trauma [] Long length of stay [] ICU visit [] Other: Relational/Emotional Strength [] Patient feels connected with others/family/visitors/staff [] Distress [] Loneliness/isolation [] Abandonment Spirituality of Patient [] Person of Niyah [] Attends Yarsani of their Niyah [] Believes in Prayer [] Reads Bible or Mormon materials [] There are Spiritual issues to be addressed Office Spec Interventions [x] Prayer [x] Active listening [x] Non-anxious presence [x] Spiritual/emotional support [] Crisis/trauma care [] Spiritual counseling [] Bereavement support [] Provided bereavement packet [] Provided Bible/devotional materials [] Provided toy/stuffed animal, coloring book to patient or family member [] Provided Communion [] Anointing/[place] [] Salvation [x] Completed spiritual assessment [] Other: Impact on Illness or Injury [] Angry [] Fearful [] Anxious [] Often cries [] Exhaustion [] Unable to work [] Unable to attend denominational [] Unable to walk/stand [] Unable to read [] Unable to drive [] Unable to eat/drink [] Unable to sleep [] Unable to be with family [] Patient intubated [] Other: Summary patient resting well... no breakfast.. more tests Time spent with patient 10 min
[2020-07-28] MEDS: metoprolol succinate ER (24 HR) 25 mg Tablet PO (09:04)
[2020-07-28] MEDS: gabapentin 100 mg Capsule 200 MG PO ×2 (09:05→18:26)
[2020-07-28] MEDS: amlodipine 5 mg Tablet PO (09:05)
[2020-07-28] MEDS: aspirin 325 mg EC Tablet PO (09:05)
[2020-07-28 09:22] LABS: PROTEIN, TOTAL 5.8 g/dL (6.1-8.1)
[2020-07-28 11:22] LABS: Glucose Point of Care 141 mg/dL (70-110)
[2020-07-28] MEDS: sodium chloride 0.9% 1,000 ML 100 ML IV (11:51)
[2020-07-28 11:57] LABS: Creatinine, Random Urine 94 mg/dL (20-275); Protein, Total, Random 97 mg/dL (5-24); Protein/Creatinine Ratio 1.032 (0.021-0.161); Protein/Creatinine Ratio 1032 mg/g creat (21-161)
--- NOTE | 2020-07-28 12:01 | PC.NURSE ---
Spoke with Dr Willard with nurse concerns of patient being discharge just a few days ago for hydration and readmitted for exacerbation of CHF nurse concerned with running fluids Dr willard consulted with nephrology and cardiology instructions given to run fluids as ordered for 6 hours and re-evaluate situation.
--- NOTE | 2020-07-28 13:38 | DCPLANNER ---
IMM completed on 07/28/2020 @ 0183. Copy of rights given to pt.
[2020-07-28 13:53] LABS: Complement C3 101 mg/dL (90-180)
--- NOTE | 2020-07-28 14:29 | P.PN_ITS ---
Subjective Subjective: Interval history: The patient is doing well. Denies any chest pain, shortness of breath, cough, palpitations. No fevers or chills. No dysuria. No nausea or vomiting. No diarrhea. Medications: Reviewed: Yes Medication Review Details: Generic Name Dose Route Start Last Admin Trade Name Freq PRN Reason Stop Dose Admin Acetaminophen 650 mg 07/26/20 20:10 07/26/20 21:21 Acetaminophen 32 5 Mg Tablet PO 650 mg Q4H PRN Administration MILD PAIN OR INCR EASE TEMP Amlodipine Besylat e 5 mg 07/28/20 09:00 07/28/20 09:05 Amlodipine 5 Mg Tablet PO 5 mg DAILY [facility] Administration Amoxicillin/Clavul anate Potassium 250 mg 07/28/20 09:00 07/28/20 09:32 Amoxicillin-Clav 250-62.5 Mg/5 Ml Btl 100 Ml PO 5 ml BID KIM[facility] Administration Protocol Aspirin 325 mg 07/27/20 09:00 07/28/20 09:05 Aspirin 325 Mg E c Tablet PO 325 mg DAILY [facility] Administration Atorvastatin Calci um 10 mg 07/25/20 21:00 07/27/20 21:18 Atorvastatin 40 Mg Tablet PO 10 mg BEDTIME [facility] Administration Gabapentin 200 mg 07/25/20 18:00 07/28/20 09:05 Gabapentin 100 M g Capsule PO 200 mg BID [facility] Administration Heparin Sodium (Be ef Lung) 5,000 unit 07/25/20 14:00 07/28/20 05:49 Heparin 5,000 Un it/Ml Inj 1 Ml SUBCUT 5,000 unit Q8H [facility] Administration Hydralazine HCl 10 mg 07/25/20 12:54 07/26/20 12:15 Hydralazine 20 M g/Ml Inj 1 Ml IVP 10 mg Q4H PRN Administration SBP above 160 Propofol 1,000 mg in 100 m ls @ 0 mls/hr 07/25/20 06:30 07/26/20 01:39 Diprivan IV 11.3 mls/hr .Q0M [facility] Infusion As Directed Sodium Chloride 1,000 mls @ 100 m ls/hr 07/28/20 08:00 07/28/20 11:51 Sodium Chloride 0.9% IV 100 mls/hr .Q10H [facility] Administration Insulin Aspart 0 unit 07/25/20 13:00 07/28/20 14:12 Insulin Aspart 1 00 Unit/1 Ml SUBCUT Not Given Q6H [facility] Protocol Metoprolol Succina te 25 mg 07/28/20 09:00 07/28/20 09:04 Metoprolol Succi kenia Er (24 Hr) 25 Mg Tablet PO 25 mg DAILY [facility]IM[facility] Administration Tramadol HCl 50 mg 07/26/20 16:51 07/28/20 11:51 Tramadol 50 Mg T ablet PO 50 mg Q6H PRN Administration MODERATE PAIN Vitals/I&O/Wt Last Vital Signs Temp 96.4 F L 07/28/20 11:00 Pulse 50 L 07/28/20 11:00 Resp 16 07/28/20 11:00 BP 124/50 07/28/20 11:00 Pulse Ox 96 07/28/20 11:00 07/27/20 07/28/20 07/28/20 22:59 06:59 14:59 Intake Total 850 / 1140 48.958 / 1188.958 240 / 240 Output Total 150 / 150 500 / 650 Balance 700 / 990 -451.042 / 538.958 240 / 240 Weight last 48 hrs Weight 56.926 kg Physical Exam Narrative: EXAM NARRATIVE: Awake alert and oriented. No acute distress. Skin is warm and dry. Moist mucous membranes. Eyes Diamond, sclerae normal Neck supple. No JVD Lungs air conduction to all lung porter. Clear. No significant crackles or wheezes. Heart S1, S2, regular Abdomen soft, nontender, bowel sounds are present extremities bilateral pedal edema is present. No cyanosis or calf tenderness bilaterally. Chronic heel ulcers are present. No active discharge or bleeding. Urinary Catheter Management^: Mcfarland: Cath Placed During This Visit: yes Reason for Continuing Indwelling Catheter: Accurate Measurement of Urinary Output in Critically Ill Patients Urinary Catheter Date of Insertion: 07/25/20 Urinary Catheter Time of Insertion: 07:10 Data : 07/28/20 04:15 07/28/20 04:15 Micro: Microbiology 07/25/20 08:14 Gram Stain - Final Sputum - Endotracheal Tube Aspirate Sputum Culture - Final A&P Additional A&P Information 74-year-old female with past medical history of severe peripheral vascular disease, chronic kidney disease, hypertension who underwent angiography couple o f days ago in this hospital and was discharged yesterday. Today she presented with acute severe respiratory distress/labored breathing. Acute hypercapnic respiratory failure probably secondary to pulmonary edema. Her blood pressure is at 200 on presentation. Fluid overload and malignant hypertension are suspected as triggering factor for her pulmonary edema/CHF. Currently resolved. Extubated and stable. Pulmonary edema/fluid overload. Resolved with diuresis. We appreciate Dr. Faye's input and recommendations. Possible infection/sepsis. I do not think that she is in septic shock. Most likely the short episode of hypotension was related to sedation. Leukocytosis is resolved. Possible aspiration pneumonia. Doing well. We will switch her to short course of Augmentin. Abnormal troponin elevation. Demand ischemia versus hypertensive emergency with endorgan damage is suspected. Continue management per Dr. Faye's recommendations. DVT prophylaxis. Heparin. Acute kidney injury on top of chronic kidney disease. Appreciate Dr. Khan's input. Additional testing is pending. Currently is being hydrated with normal saline. Will watch for signs of fluid overload and CHF exacerbation. Hyperkalemia. Replace and monitor. Hyponatremia. 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 Mild and stable. Management per Anemia probably chronic. Received a unit of RBCs yesterday. Level is better today. Diabetes. Insulin sliding scale. Hypertension. As needed hydralazine. The plan of care was discussed with multidisciplinary team. Discussed with the patient. Also discussed with Dr. Faye. Attestations Medical Necessity Statement*: Patient still requires IV fluids and close monitoring of chemistry panel. Coding Level of Care Code Acute Manager Data Warehouse for Jancie Long
[2020-07-28 14:41] LABS: Hepatitis B Surface AB 9.1 (0-8.5); Hepatitis B Surface Antigen Non-Reactive (Nonreactive); Hepatitis C Virus Antibody Non-Reactive (Nonreactive)
[2020-07-28 15:00] LABS: Anion Gap 15.6 (5-19); Blood Urea Nitrogen 59 mg/dL (8-23); Calcium 8.4 mg/dL (8.5-10.5); Carbon Dioxide 24 mmol/L (22-29); Chloride 92 mmol/L (98-107); Glucose 118 mg/dL (65-115); Osmolality Calculated 282 mOsm/kg (285-295); Potassium 4.6 mmol/L (3.5-5.1); Sodium 127 mmol/L (136-145); Thyroid Stimulating Hormone 3.53 uIU/mL (0.27-4.20)
[2020-07-28 16:08] LABS: ALBUMIN 2.9 g/dL (3.8-4.8); ALPHA 1 GLOBULIN 0.4 g/dL (0.2-0.3); ALPHA 2 GLOBULIN 0.9 g/dL (0.5-0.9); BETA 1 GLOBULIN 0.4 g/dL (0.4-0.6); BETA 2 GLOBULIN 0.4 g/dL (0.2-0.5)
[2020-07-28 16:26] LABS: Glucose Point of Care 115 mg/dL (70-110)
--- NOTE | 2020-07-28 18:30 | PM.PN ---
Subjective Subjective: Interval history: She feels well and denies having any complaints. Sinus bradycardia on telemetry. Urine output 6 50 mL from yesterday with +539 mL. Length of stay -1.4 L. Received 1 unit of packed red blood cell yesterday. Medications: Reviewed: Yes Medication Review Details: Current Medications Acetaminophen (Acetaminophen 325 Mg Tablet) 650 mg PO Q4H PRN PRN Reason: MILD PAIN OR INCREASE TEMP Last Admin: 07/26/20 21:21 Dose: 650 mg Documented by: Amlodipine Besylate (Amlodipine 5 Mg Tablet) 5 mg PO DAILY [facility] Last Admin: 07/28/20 09:05 Dose: 5 mg Documented by: Amoxicillin/Clavulanate Potassium (Amoxicillin-Clav 250-62.5 Mg/5 Ml Btl 100 Ml) 250 mg PO BID [facility]; Protocol Last Admin: 07/28/20 18:26 Dose: 5 ml Documented by: Aspirin (Aspirin 325 Mg Ec Tablet) 325 mg PO DAILY [facility] Last Admin: 07/28/20 09:05 Dose: 325 mg Documented by: Atorvastatin Calcium (Atorvastatin 40 Mg Tablet) 10 mg PO BEDTIME [facility] Last Admin: 07/27/20 21:18 Dose: 10 mg Documented by: Dextrose (Dextrose 50% Syringe 50 Ml) 25 ml IVP ONCE PRN; Protocol PRN Reason: hypoglycemia protocol Dextrose (Dextrose 50% Syringe 50 Ml) 50 ml IVP PRN PRN; Protocol PRN Reason: hypoglycemia protocol Gabapentin (Gabapentin 100 Mg Capsule) 200 mg PO BID [facility] Last Admin: 07/28/20 18:26 Dose: 200 mg Documented by: Glucagon (Glucagon 1 Mg/Ml Inj 1 Ml) 1 mg IM ONCE PRN; Protocol PRN Reason: Adult Acute Hypoglycemia Prot. Heparin Sodium (Beef Lung) (Heparin 5,000 Unit/Ml Inj 1 Ml) 5,000 unit SUBCUT Q8H [facility] Last Admin: 07/28/20 15:31 Dose: 5,000 unit Documented by: Hydralazine HCl (Hydralazine 20 Mg/Ml Inj 1 Ml) 10 mg IVP Q4H PRN PRN Reason: SBP above 160 Last Admin: 07/26/20 12:15 Dose: 10 mg Documented by: Midazolam HCl 100 mg/ Sodium (Chloride) 100 mls @ 0 mls/hr IV .Q0M [facility]; Protocol Propofol (Diprivan) 1,000 mg in 100 mls @ 0 mls/hr IV .Q0M [facility] Last Infusion: 07/26/20 01:39 Dose: 11.3 mls/hr Documented by: Sodium Chloride (Sodium Chloride 0.9%) 1,000 mls @ 100 mls/hr IV .Q10H [facility] Last Infusion: 07/28/20 18:00 Dose: 0 mls/hr Documented by: Insulin Aspart (Insulin Aspart 100 Unit/1 Ml) 0 unit SUBCUT Q6H [facility]; Protocol Last Admin: 07/28/20 18:27 Dose: Not Given Documented by: Metoprolol Succinate (Metoprolol Succinate Er (24 Hr) 25 Mg Tablet) 25 mg PO DAILY [facility] Last Admin: 07/28/20 09:04 Dose: 25 mg Documented by: Tramadol HCl (Tramadol 50 Mg Tablet) 50 mg PO Q6H PRN PRN Reason: MODERATE PAIN Last Admin: 07/28/20 11:51 Dose: 50 mg Documented by: Vitals/I&O/Wt Last Vital Signs Temp 97.8 F 07/28/20 14:54 Pulse 53 L 07/28/20 14:54 Resp 18 07/28/20 14:54 BP 150/59 07/28/20 14:54 Pulse Ox 95 07/28/20 14:54 07/28/20 07/28/20 07/28/20 06:59 14:59 22:59 Intake Total 48.958 / 1188.958 240 / 240 735 / 975 Output Total 500 / 650 800 / 800 Balance -451.042 / 538.958 240 / 240 -65 / 175 Weight last 48 hrs Weight 125 lb 8 oz Physical Exam Narrative: EXAM NARRATIVE: GENERAL: Averagely built and averagely nourished, sitting in bed at the time of evaluation HEENT: No pallor or icterus. NECK: No JVD appreciated. CARDIOVASCULAR SYSTEM: S1-S2 regular. No S3 or S4 present. Grade 3/6 harsh ejection systolic murmur in aortic area with radiation to carotids. RESPIRATORY SYSTEM: Chest clear to auscultation anteriorly. No use of accessory muscles. ABDOMEN: Soft, nontender and nondistended. Normal bowel sounds present. EXTREMITIES: No cyanosis or clubbing. No edema. Monophasic Doppler pulses DP and PT bilaterally. Left hand swollen at IV access site. DIRECTOR EMERGENCY: Patient is alert oriented ?3. No focal neurological deficits. SKIN: Normal turgor and temperature. No breakdown, rash or nail changes noted. PSYCH: Normal insight and judgment. Urinary Catheter Management^: Mcfarland: Cath Placed During This Visit: yes Reason for Continuing Indwelling Catheter: Accurate Measurement of Urinary Output in Critically Ill Patients Urinary Catheter Date of Insertion: 07/25/20 Urinary Catheter Time of Insertion: 07:10 Data : 07/28/20 04:15 07/28/20 14:10 Other Labs: TSH 3.53, 918, TIBC 186, percent saturation 63.4, ferritin 285 Other data: No evidence of renal artery stenosis on renal Doppler. A&P Assessment and plan (1) Acute respiratory failure: In setting of flash pulmonary edema -resolved. Patient has been extubated and is currently on room air. Status: Acute (2) NSTEMI (non-ST elevated myocardial infarction): Likely type II in setting of hypoxia and markedly elevated blood pressure with concentric left ventricular hypertrophy and aortic stenosis causing subendocardial ischemia. -continue aspirin, statin and beta-diogenes -Echocardiogram with preserved left ventricle systolic function with possible hypokinesis of apical inferior and apical septal katz. -Given her extensive PAD as well as wall motion abnormality on her echocardiogram there is a high likelihood that she has coronary artery disease. -I think she would benefit from stress testing for further risk stratification. -Patient is currently chest pain-free and is hesitant to undergo stress testing. -Given her moderate aortic stenosis probably at some point in future she would require coronary angiogram. I will defer the decision for stress testing to patient's manager government Dr. Steele as an outpatient. Further decision based on patient's clinical status. Status: Acute (3) Pulmonary edema: Received Lasix 20 mg IV yesterday. -Hold further Lasix today. She is still net negative. -Closely monitor urine output. -Agree with doing renal arterial Doppler to assess for renal artery stenosis given concern for flash pulmonary edema and worsening renal function. Status: Acute Qualifiers: Chronicity: acute Qualified Code(s): J81.0 - Acute pulmonary edema (4) Peripheral vascular disease: Plan for peripheral angiogram possibly in next few weeks with Dr. Steele once renal function normalizes Status: Acute (5) Essential hypertension: Her elevated blood pressure likely in setting of hypoxia and respiratory distress as it came down to 130s without any antihypertensives. -She received hydralazine IV yesterday. Blood pressure in normal range today. Increase amlodipine to 7.5 mg starting tomorrow. -Continue to monitor her blood pressure closely. Continue to hold off on valsartan. Status: Acute (6) Hyperlipidemia: Status: Acute Qualifiers: Hyperlipidemia type: unspecified Qualified Code(s): E78.5 - Hyperlipidemia, unspecified (7) Diabetes mellitus: Status: Acute Qualifiers: Diabetes mellitus type: type 2 Diabetes mellitus mcc insulin use: without superintendent terminal use Diabetes mellitus complication status: with kidney complications Diabetes mellitus complication detail: with chronic kidney disease Additional A&P Information GERARD on CKD stage III : BUN is increased 59<--54<-- 40 <--32 and creatinine 3.2 <--3.1<-- 2.6 <--1.9 today. Likely prerenal. She is currently getting normal saline at 100 cc/h. I will administer a total of 1 L today. avoid any nephrotoxic agents. Renal on board Bradycardia: Stop Coreg and decrease metoprolol succinate to 12.5 mg daily. Moderate aortic stenosis: hyperkalemia: Resolved; agree with holding valsartan Hyponatremia: Sodium level 127 today. Add salt tablet 1 g twice daily. Follow-up BMP in a.m. Leukocytosis : Currently being empirically covered with Zosyn for possible sepsis, resolved Normocytic anemia: Hemoglobin dropped to 8.5 <--7.3 <--7.7 from 9.9 few days back. Continue to monitor closely. No signs of active bleed. I think she would benefit from another packed red blood cell transfusion to maintain hemoglobin around 10. FOBT. Thrombocytosis: Resolved Right foot ulcer: Being followed by wound care. Hypoalbuminemia Thank you for allowing me to participate in patient's care. Please feel free to call with questions or concerns Attestations Medical Necessity Statement*: Patient needs hospital stay for worsening renal function, , NSTEMI and pulmonary edema. Time Spent in Patient Care: 16 - 35 minutes (>than 50% of time spent in counselling and/or direct pt care on unit). Coding Level of Care Code Established Pt Acute Impact Hammer Operator for Janice Long Patient Type Established History Comprehensive Exam Comprehensive Medical Decision Making High Complexity Diagnoses Acute respiratory failure J96.00 NSTEMI (non-ST elevated myocardial infarction) I21.4 Pulmonary edema J81.0 Chronicity: acute Peripheral vascular disease I73.9 Essential hypertension I10 Hyperlipidemia E78.5 Hyperlipidemia type: unspecified Diabetes mellitus E11.9 Diabetes mellitus type: type 2 Diabetes mellitus mcc insulin use: without superintendent terminal use Diabetes mellitus complication status: with kidney complications Diabetes mellitus complication detail: with chronic kidney disease Time Spent (min) 35
--- NOTE | 2020-07-28 19:06 | PC.NURSE ---
Dr Faye on unit to assess patient after fluid running for [address] fluids on hold.
[2020-07-28] MEDS: sodium chloride 1 gm Tablet PO (19:47)
[2020-07-28] MEDS: hyDRALAzine 20 mg/mL INJ 1 mL 10 MG IVP (19:49)
[2020-07-28] MEDS: atorvastatin 40 mg Tablet 10 MG PO (20:05)
[2020-07-28 20:33] LABS: Glucose Point of Care 120 mg/dL (70-110)
[2020-07-29] VITALS (10 sets, daily range): BP systolic 144–158; BP diastolic 53–81; PULSE 47–61; RESP 12–17; TEMP 35.6–37; O2SAT 93–97
[2020-07-29 00:13] LABS: Glucose Point of Care 116 mg/dL (70-110)
[2020-07-29 04:08] LABS: Basophils # 0.1 10^3/uL (0.0-0.1); Basophils % 0.9 %; Eosinophils # 0.8 10^3/uL (0.0-0.8); Eosinophils % 8.9 %; Hematocrit 26.4 % (37.0-47.0); Hemoglobin 8.7 g/dL (11.5-15.3); Lymphocytes # 1.9 10^3/uL (0.8-4.8); Lymphocytes % 20.4 %; Mean Corpuscular Hemoglobin 28.2 pg (28.0-34.0); Mean Corpuscular Volume 85.4 fL (81-99); Mean Platelet Volume 10.5 fL (7.4-10.4); Monocytes # 0.6 10^3/uL (0.2-0.9); Monocytes % 6.6 %; Neutrophils # 5.91 10^3/uL (1.8-7.7); Neutrophils % 62.8 %; Nucleated Red Blood Cells % 0 %; Platelet Count 243 10^3/cmm (130-400); Red Blood Count 3.09 10^6/uL (4.1-5.3); Red Cell Distribution Width 14.5 % (12.1-15.1); White Blood Count 9.4 10^3/uL (4.0-10.0)
[2020-07-29 04:31] LABS: Alanine Aminotransferase 13 U/L (0-33); Albumin Level 2.9 g/dL (3.5-5.2); Alkaline Phosphatase 62 IU/L (35-105); Anion Gap 15.9 (5-19); Aspartate Amino Transferase 18 U/L (0-32); Blood Urea Nitrogen 57 mg/dL (8-23); Calcium 8.5 mg/dL (8.5-10.5); Carbon Dioxide 21 mmol/L (22-29); Chloride 96 mmol/L (98-107); Glucose 103 mg/dL (65-115); Osmolality Calculated 282 mOsm/kg (285-295); Phosphorus 5.4 mg/dL (2.5-4.5); Potassium 4.9 mmol/L (3.5-5.1); Sodium 128 mmol/L (136-145); Total Bilirubin 0.3 mg/dL (0.15-1.2); Total Protein 5.9 g/dL (6.6-8.7)
[2020-07-29] MEDS: heparin 5,000 unit/mL INJ 1 mL 5000 UNIT SUBCUT ×3 (05:09→21:07)
[2020-07-29 06:56] LABS: Glucose Point of Care 105 mg/dL (70-110)
--- NOTE | 2020-07-29 07:00 | P.PN_ITS ---
Subjective Subjective: Interval history: feels better. not requiring oxygen. no edema. Medications: Reviewed: Yes Medication Review Details: Current Medications Acetaminophen (Acetaminophen 325 Mg Tablet) 650 mg PO Q4H PRN PRN Reason: MILD PAIN OR INCREASE TEMP Last Admin: 07/26/20 21:21 Dose: 650 mg Documented by: Amlodipine Besylate (Amlodipine 5 Mg Tablet) 7.5 mg PO DAILY [facility] Amoxicillin/Clavulanate Potassium (Amoxicillin-Clav 250-62.5 Mg/5 Ml Btl 100 Ml) 250 mg PO BID [facility]; Protocol Last Admin: 07/28/20 18:26 Dose: 5 ml Documented by: Aspirin (Aspirin 81 Mg Ec Tablet) 81 mg PO DAILY [facility] Atorvastatin Calcium (Atorvastatin 40 Mg Tablet) 10 mg PO BEDTIME [facility] Last Admin: 07/28/20 20:05 Dose: 10 mg Documented by: Dextrose (Dextrose 50% Syringe 50 Ml) 25 ml IVP ONCE PRN; Protocol PRN Reason: hypoglycemia protocol Dextrose (Dextrose 50% Syringe 50 Ml) 50 ml IVP PRN PRN; Protocol PRN Reason: hypoglycemia protocol Gabapentin (Gabapentin 100 Mg Capsule) 200 mg PO BID [facility] Last Admin: 07/28/20 18:26 Dose: 200 mg Documented by: Glucagon (Glucagon 1 Mg/Ml Inj 1 Ml) 1 mg IM ONCE PRN; Protocol PRN Reason: Adult Acute Hypoglycemia Prot. Heparin Sodium (Beef Lung) (Heparin 5,000 Unit/Ml Inj 1 Ml) 5,000 unit SUBCUT Q8H [facility] Last Admin: 07/29/20 05:09 Dose: 5,000 unit Documented by: Hydralazine HCl (Hydralazine 20 Mg/Ml Inj 1 Ml) 10 mg IVP Q4H PRN PRN Reason: SBP above 160 Last Admin: 07/28/20 19:49 Dose: 10 mg Documented by: Propofol (Diprivan) 1,000 mg in 100 mls @ 0 mls/hr IV .Q0M [facility] Last Infusion: 07/26/20 01:39 Dose: 11.3 mls/hr Documented by: Sodium Chloride (Sodium Chloride 0.9%) 1,000 mls @ 100 mls/hr IV .Q10H [facility] Last Infusion: 07/28/20 18:00 Dose: 0 mls/hr Documented by: Insulin Aspart (Insulin Aspart 100 Unit/1 Ml) 0 unit SUBCUT Q6H [facility]; Protocol Last Admin: 07/29/20 07:00 Dose: Not Given Documented by: Metoprolol Succinate (Metoprolol Succinate Er (24 Hr) 25 Mg Tablet) 12.5 mg PO DAILY [facility] Sodium Chloride (Sodium Chloride 1 Gm Tablet) 1 gm PO BID [facility] Last Admin: 07/28/20 19:47 Dose: 1 gm Documented by: Tramadol HCl (Tramadol 50 Mg Tablet) 50 mg PO Q6H PRN PRN Reason: MODERATE PAIN Last Admin: 07/28/20 20:07 Dose: 50 mg Documented by: Vitals/I&O/Wt Last Vital Signs Temp 96.0 F L 07/29/20 06:52 Pulse 47 L 07/29/20 06:52 Resp 16 07/29/20 06:52 BP 156/81 07/29/20 06:52 Pulse Ox 94 07/29/20 06:52 07/28/20 07/29/20 07/29/20 22:59 06:59 14:59 Intake Total 1235 / 1475 Output Total 1150 / 1150 400 / 1550 Balance 85 / 325 -400 / -75 Physical Exam Narrative: EXAM NARRATIVE: comfortable in bed, NARD- not using O2 VS noted- SBP remains elevated- heent - nc/at, eomi, anicteric neck supple lungs- clear heart reg, +HSm, +s1, s2 abd soft, nt, nd, +BS ext b/l edema in arms leg DM changes. no significant edema poor DP and PT pulses neuro- neuropathy,a,a, o x 3 Urinary Catheter Management^: Mcfarland: Cath Placed During This Visit: yes Reason for Continuing Indwelling Catheter: Accurate Measurement of Urinary Output in Critically Ill Patients Urinary Catheter Date of Insertion: 07/25/20 Urinary Catheter Time of Insertion: 07:10 Data : 07/29/20 03:47 07/29/20 03:47 A&P Additional A&P Information 1. GERARD -- she did not get a recent angiogram- it was cancelled as cr was already rising last week. - Given htn, flash pulm edema, and known PVD- check Renal artery duplex for possible DALE - renal us- rt 9.3 cm, left 10.3 cm, no DALE -monitor chemistries - cr should hopefully improve soon -cr baseline is 1.2 on 03/26/20. was 1.7 already on 07-21-20. was 1.9 on admission- kelly w/ diuresis - monitor chemistries - cr remains stbale -d/c ivf Etiology of GERARD- presumed ATN from normalizing BP vs Q TMA from HTN urgency- less likely -await ua - spep/ upep- pending, sent since she has anemia and GERARD -normal ck -monitor UOP and chemistries -approx 1 gm proteinuria- not nephrotic 2. hyponatremia- from GERARD, lasix, volume overload. na seems to be approx 130 for last 5 months -urine lytes- were ordered, not sent -normal tsh -fluid restrict -hold ivf and lasix -hold dopamine- can cause hyponatremia -salt tab per cardiology- 3. hyponatremia can be from - further therapy as per cardilogy- when cr normalizes, i agree that she would likely benefit from cardiac cath- though elevated risk of SHAILA 4 htn and bradycardia- cardiology is following- on norvasc, hydralazine prn and low dose beta diogenes. consider stopping beta diogenes. will change hydralazine to q 8 hrs -avoid ariane-i/ arb/ aldactone w/ GERARD 4. anemia- await SPEP w/ GERARD -high % sat, ferritin 285- unlikely CRYSTAL 5. hyperphosphatemia- low phos diet- may need a binder 6. Diastolic dysfunction grade 2 and moderate - per cardiology discussed w/ pt and RN Attestations 2 Medical Necessity Statement*: gerard, htn, hyponatremia Time Spent in Patient Care: Greater than 35 minutes Coding Level of Care Code Acute Bookbinding Machine Operator for Janice Long
[2020-07-29] MEDS: sodium chloride 1 gm Tablet PO ×2 (08:31→17:24)
[2020-07-29] MEDS: gabapentin 100 mg Capsule 200 MG PO ×2 (08:31→17:23)
[2020-07-29] MEDS: amlodipine 5 mg Tablet 7.5 MG PO (08:32)
[2020-07-29] MEDS: hyDRALAzine 25 mg Tablet PO ×3 (08:33→20:16)
[2020-07-29] MEDS: aspirin 81 mg EC Tablet PO (08:33)
[2020-07-29 09:12] LABS: Albumin,Urine Random 72 %; Alpha-1-Globulins Urine Random 4 %; Alpha-2-Globulins Urine Random 5 %; Beta-Globulin,Urine Random 10 %; Gamma Globulin,Urine Random 10 %
[2020-07-29 11:08] LABS: Glucose Point of Care 179 mg/dL (70-110)
--- NOTE | 2020-07-29 13:33 | PM.PN ---
Subjective Subjective: Interval history: Denies any complaints, No events on telemetry. started on hydralazine Medications: Reviewed: Yes Medication Review Details: Current Medications Acetaminophen (Acetaminophen 325 Mg Tablet) 650 mg PO Q4H PRN PRN Reason: MILD PAIN OR INCREASE TEMP Last Admin: 07/26/20 21:21 Dose: 650 mg Documented by: Amlodipine Besylate (Amlodipine 5 Mg Tablet) 7.5 mg PO DAILY [facility] Last Admin: 07/29/20 08:32 Dose: 7.5 mg Documented by: Amoxicillin/Clavulanate Potassium (Amoxicillin-Clav 250-62.5 Mg/5 Ml Btl 100 Ml) 250 mg PO BID [facility]; Protocol Last Admin: 07/29/20 09:00 Dose: 5 ml Documented by: Aspirin (Aspirin 81 Mg Ec Tablet) 81 mg PO DAILY [facility] Last Admin: 07/29/20 08:33 Dose: 81 mg Documented by: Atorvastatin Calcium (Atorvastatin 40 Mg Tablet) 10 mg PO BEDTIME [facility] Last Admin: 07/28/20 20:05 Dose: 10 mg Documented by: Dextrose (Dextrose 50% Syringe 50 Ml) 25 ml IVP ONCE PRN; Protocol PRN Reason: hypoglycemia protocol Dextrose (Dextrose 50% Syringe 50 Ml) 50 ml IVP PRN PRN; Protocol PRN Reason: hypoglycemia protocol Gabapentin (Gabapentin 100 Mg Capsule) 200 mg PO BID [facility] Last Admin: 07/29/20 08:31 Dose: 200 mg Documented by: Glucagon (Glucagon 1 Mg/Ml Inj 1 Ml) 1 mg IM ONCE PRN; Protocol PRN Reason: Adult Acute Hypoglycemia Prot. Heparin Sodium (Beef Lung) (Heparin 5,000 Unit/Ml Inj 1 Ml) 5,000 unit SUBCUT Q8H [facility] Last Admin: 07/29/20 13:35 Dose: 5,000 unit Documented by: Hydralazine HCl (Hydralazine 25 Mg Tablet) 25 mg PO TID [facility] Last Admin: 07/29/20 08:33 Dose: 25 mg Documented by: Propofol (Diprivan) 1,000 mg in 100 mls @ 0 mls/hr IV .Q0M [facility] Last Infusion: 07/26/20 01:39 Dose: 11.3 mls/hr Documented by: Sodium Chloride (Sodium Chloride 0.9%) 1,000 mls @ 100 mls/hr IV .Q10H [facility] Last Infusion: 07/28/20 18:00 Dose: 0 mls/hr Documented by: Insulin Aspart (Insulin Aspart 100 Unit/1 Ml) 0 unit SUBCUT WM&BEDTIME [facility]; Protocol Metoprolol Succinate (Metoprolol Succinate Er (24 Hr) 25 Mg Tablet) 12.5 mg PO DAILY [facility] Last Admin: 07/29/20 08:40 Dose: Not Given Documented by: Sodium Chloride (Sodium Chloride 1 Gm Tablet) 1 gm PO BID [facility] Last Admin: 07/29/20 08:31 Dose: 1 gm Documented by: Tramadol HCl (Tramadol 50 Mg Tablet) 50 mg PO Q6H PRN PRN Reason: MODERATE PAIN Last Admin: 07/29/20 13:34 Dose: 50 mg Documented by: Vitals/I&O/Wt Last Vital Signs Temp 96.9 F L 07/29/20 11:00 Pulse 54 L 07/29/20 11:00 Resp 14 07/29/20 11:00 BP 144/55 07/29/20 11:00 Pulse Ox 94 07/29/20 11:00 07/28/20 07/29/20 07/29/20 22:59 06:59 14:59 Intake Total 1235 / 1475 240 / 240 Output Total 1150 / 1150 400 / 1550 Balance 85 / 325 -400 / -75 240 / 240 Physical Exam Narrative: EXAM NARRATIVE: GENERAL: Averagely built and averagely nourished, sitting in bed at the time of evaluation HEENT: No pallor or icterus. NECK: No JVD appreciated. CARDIOVASCULAR SYSTEM: S1-S2 regular. No S3 or S4 present. Grade 3/6 harsh ejection systolic murmur in aortic area with radiation to carotids. RESPIRATORY SYSTEM: Chest clear to auscultation anteriorly. No use of accessory muscles. ABDOMEN: Soft, nontender and nondistended. Normal bowel sounds present. EXTREMITIES: No cyanosis or clubbing. No edema. Monophasic Doppler pulses DP and PT bilaterally. Left hand swollen at IV access site. COLORIST PHOTOGRAPHY: Patient is alert oriented ?3. No focal neurological deficits. SKIN: Normal turgor and temperature. No breakdown, rash or nail changes noted. PSYCH: Normal insight and judgment. Urinary Catheter Management^: Mcfarland: Cath Placed During This Visit: yes Reason for Continuing Indwelling Catheter: Accurate Measurement of Urinary Output in Critically Ill Patients Urinary Catheter Date of Insertion: 07/25/20 Urinary Catheter Time of Insertion: 07:10 Data : 07/29/20 03:47 07/29/20 03:47 A&P Assessment and plan (1) Acute respiratory failure: In setting of flash pulmonary edema -resolved. Patient has been extubated and is currently on room air. Status: Acute (2) NSTEMI (non-ST elevated myocardial infarction): Likely type II in setting of hypoxia and markedly elevated blood pressure with concentric left ventricular hypertrophy and aortic stenosis causing subendocardial ischemia. -continue aspirin, statin and beta-diogenes -Echocardiogram with preserved left ventricle systolic function with possible hypokinesis of apical inferior and apical septal katz. -Given her extensive PAD as well as wall motion abnormality on her echocardiogram there is a high likelihood that she has coronary artery disease. -I think she would benefit from stress testing for further risk stratification. -Patient is currently chest pain-free and is hesitant to undergo stress testing. -Given her moderate aortic stenosis probably at some point in future she would require coronary angiogram. I will defer the decision for stress testing to patient's in flight technician Dr. Steele as an outpatient. Further decision based on patient's clinical status. Status: Acute (3) Pulmonary edema: -resolved. Remains on room air. -Agree with doing renal arterial Doppler to assess for renal artery stenosis given concern for flash pulmonary edema and worsening renal function. Status: Acute Qualifiers: Chronicity: acute Qualified Code(s): J81.0 - Acute pulmonary edema (4) Peripheral vascular disease: Plan for peripheral angiogram possibly in next few weeks with Dr. Steele once renal function normalizes Status: Acute (5) Essential hypertension: Her elevated blood pressure likely in setting of hypoxia and respiratory distress as it came down to 130s without any antihypertensives. Blood pressure elevated today. Increase amlodipine to 10 mg starting tomorrow. -Continue to monitor her blood pressure closely. started on hydralazine. Status: Acute (6) Hyperlipidemia: Status: Acute Qualifiers: Hyperlipidemia type: unspecified Qualified Code(s): E78.5 - Hyperlipidemia, unspecified (7) Diabetes mellitus: Status: Acute Qualifiers: Diabetes mellitus complication detail: with chronic kidney disease Diabetes mellitus complication status: with kidney complications Diabetes mellitus fci insulin use: without buttermaker helper use Diabetes mellitus type: type 2 Additional A&P Information GERARD on CKD stage III : BUN is increased 57 <--59<--54<-- 40 <--32 and creatinine 3.1 <--3.2 <--3.1<-- 2.6 <--1.9 today. Likely prerenal. She is currently getting normal saline at 100 cc/h. I will administer a total of 1 L today. avoid any nephrotoxic agents. Renal on board Bradycardia: Stop Coreg and decrease metoprolol succinate to 12.5 mg daily. Moderate aortic stenosis: hyperkalemia: Resolved; agree with holding valsartan Hyponatremia: Sodium level 128 today. continue salt tablet 1 g twice daily. Follow-up BMP in a.m. Leukocytosis : Currently being empirically covered with Zosyn for possible sepsis, resolved Normocytic anemia: Hemoglobin dropped to 8.5 <--7.3 <--7.7 from 9.9 few days back. Continue to monitor closely. No signs of active bleed. I think she would benefit from another packed red blood cell transfusion to maintain hemoglobin around 10. FOBT. Thrombocytosis: Resolved Right foot ulcer: Being followed by wound care. Hypoalbuminemia Thank you for allowing me to participate in patient's care. Please feel free to call with questions or concerns Attestations Medical Necessity Statement*: Patient needs hospital stay for worsening renal function, , NSTEMI and pulmonary edema. Time Spent in Patient Care: 16 - 35 minutes (>than 50% of time spent in counselling and/or direct pt care on unit). Coding Level of Care Code Acute Discharge Specialist for Janice Long Diagnoses Acute respiratory failure J96.00 NSTEMI (non-ST elevated myocardial infarction) I21.4 Pulmonary edema J81.0 Chronicity: acute Peripheral vascular disease I73.9 Essential hypertension I10 Hyperlipidemia E78.5 Hyperlipidemia type: unspecified Diabetes mellitus E11.9 Diabetes mellitus complication detail: with chronic kidney disease Diabetes mellitus complication status: with kidney complications Diabetes mellitus fci insulin use: without buttermaker helper use Diabetes mellitus type: type 2
[2020-07-29] MEDS: TRAMadol 50 mg Tablet PO ×2 (13:34→19:49)
--- NOTE | 2020-07-29 14:00 | PC.NURSE ---
Patient's O2 saturations dropped to mid 80s on RA while resting. Patient placed on 2L O2 and O2 saturations recovered to mid to high 90s. Nurse to continue to monitor.
[2020-07-29 14:18] LABS: Anti-Nuclear Antibody Screen NEGATIVE (NEGATIVE)
--- NOTE | 2020-07-29 15:10 | P.PN_ITS ---
Subjective Subjective: Interval history: The patient is doing well. Denies any active complaints. No shortness of breath or chest pain no cough. No fevers or chills. No nausea or vomiting. Medications: Reviewed: Yes Medication Review Details: Generic Name Dose Route Start Last Admin Trade Name Freq PRN Reason Stop Dose Admin Acetaminophen 650 mg 07/26/20 20:10 07/26/20 21:21 Acetaminophen 32 5 Mg Tablet PO 650 mg Q4H PRN Administration MILD PAIN OR INCR EASE TEMP Amlodipine Besylat e 7.5 mg 07/29/20 09:00 07/29/20 08:32 Amlodipine 5 Mg Tablet PO 7.5 mg DAILY [facility] Administration Amoxicillin/Clavul anate Potassium 250 mg 07/28/20 09:00 07/29/20 09:00 Amoxicillin-Clav 250-62.5 Mg/5 Ml Btl 100 Ml PO 5 ml BID [facility] Administration Protocol Aspirin 81 mg 07/29/20 09:00 07/29/20 08:33 Aspirin 81 Mg Ec Tablet PO 81 mg DAILY [facility] Administration Atorvastatin Calci um 10 mg 07/25/20 21:00 07/28/20 20:05 Atorvastatin 40 Mg Tablet PO 10 mg BEDTIME [facility] Administration Gabapentin 200 mg 07/25/20 18:00 07/29/20 08:31 Gabapentin 100 M g Capsule PO 200 mg BID [facility] Administration Heparin Sodium (Be ef Lung) 5,000 unit 07/25/20 14:00 07/29/20 13:35 Heparin 5,000 Un it/Ml Inj 1 Ml SUBCUT 5,000 unit Q8H [facility] Administration Hydralazine HCl 25 mg 07/29/20 09:00 07/29/20 14:14 Hydralazine 25 M g Tablet PO 25 mg TID [facility] Administration Propofol 1,000 mg in 100 m ls @ 0 mls/hr 07/25/20 06:30 07/26/20 01:39 Diprivan IV 11.3 mls/hr .Q0M [facility] Infusion As Directed Sodium Chloride 1,000 mls @ 100 m ls/hr 07/28/20 08:00 07/28/20 18:00 Sodium Chloride 0.9% IV 0 mls/hr .Q10H [facility] Infusion Metoprolol Succina te 12.5 mg 07/29/20 09:00 07/29/20 08:40 Metoprolol Succi kenia Er (24 Hr) 25 Mg Tablet PO Not Given DAILY [facility] Sodium Chloride 1 gm 07/28/20 19:00 07/29/20 08:31 Sodium Chloride 1 Gm Tablet PO 1 gm BID [facility] Administration Tramadol HCl 50 mg 07/26/20 16:51 07/29/20 13:34 Tramadol 50 Mg T ablet PO 50 mg Q6H PRN Administration MODERATE PAIN Vitals/I&O/Wt Last Vital Signs Temp 96.9 F L 07/29/20 14:49 Pulse 57 L 07/29/20 14:49 Resp 14 07/29/20 14:49 BP 158/57 07/29/20 14:49 Pulse Ox 97 07/29/20 14:49 07/29/20 07/29/20 07/29/20 06:59 14:59 22:59 Intake Total 480 / 480 Output Total 400 / 1550 Balance -400 / -75 480 / 480 Physical Exam Narrative: EXAM NARRATIVE: Awake alert and oriented. No acute distress. Skin is warm and dry. Moist mucous membranes. Eyes Diamond, sclerae normal Neck supple. No JVD Lungs air conduction to all lung porter. Clear. No significant crackles or wheezes. Heart S1, S2, regular Abdomen soft, nontender, bowel sounds are present extremities bilateral pedal edema is present. No cyanosis or calf tenderness bilaterally. Chronic heel ulcers are present. No active discharge or bleeding. Urinary Catheter Management^: Mcfarland: Cath Placed During This Visit: yes Reason for Continuing Indwelling Catheter: Accurate Measurement of Urinary Output in Critically Ill Patients Urinary Catheter Date of Insertion: 07/25/20 Urinary Catheter Time of Insertion: 07:10 Data : 07/29/20 03:47 07/29/20 03:47 A&P Additional A&P Information 74-year-old female with past medical history of severe peripheral vascular disease, chronic kidney disease, hypertension who presented with acute severe respiratory distress/labored breathing. Acute hypercapnic respiratory failure probably secondary to pulmonary edema. Her blood pressure is at 200 on presentation. Fluid overload and malignant hypertension are suspected as triggering factor for her pulmonary edema/CHF. Currently resolved. Extubated and stable. Pulmonary edema/fluid overload. Resolved with diuresis. We appreciate Dr. Faye's input and recommendations. Possible infection/sepsis. I do not think that she is in septic shock. Most likely the short episode of hypotension was related to sedation. Leukocytosis is resolved. Possible aspiration pneumonia. Doing well. Switched to short course of Augmentin. Abnormal troponin elevation. Demand ischemia versus hypertensive emergency with endorgan damage is suspected. Continue management per Dr. Faye's recommendations. DVT prophylaxis. Heparin. Acute kidney injury on top of chronic kidney disease. Appreciate Dr. Khan's input. Additional testing is pending. Discussed with Dr. Lynn. We will continue current management and recheck kidney function tomorrow. If improved will discharge her home. Will need outpatient follow-up with nephrology. Hyperkalemia. Replace and monitor. Hyponatremia. 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 Mild and stable. Management per Anemia probably chronic. Received a unit of RBCs. Stable. Diabetes. Insulin sliding scale. Hypertension. Stable. Continue current management The plan of care was discussed with multidisciplinary team. Discussed with the patient. Attestations Medical Necessity Statement*: Hopefully home tomorrow if the renal function shows some improvement. Coding Level of Care Code Acute Degreasing Solution Mixer for Janice Long
[2020-07-29 16:48] LABS: Glucose Point of Care 137 mg/dL (70-110)
[2020-07-29] MEDS: ondansetron 2 mg/ML SDV 2 mL 4 MG IVP (17:54)
--- NOTE | 2020-07-29 18:04 | PC.NURSE ---
Shift Summary Uneventful shift. Patient up to side of bed for meals. tolerated activity well. 550 ml urine output throughout shift. Patient became nauseas at dinner. Zofran order obtained. No further needs identified at this time. Nurse to continue to monitor.
[2020-07-29] MEDS: atorvastatin 40 mg Tablet 10 MG PO (20:16)
[2020-07-29 20:33] LABS: Glucose Point of Care 136 mg/dL (70-110)
[2020-07-30] VITALS (34 sets, daily range): BP systolic 137–164; BP diastolic 53–77; PULSE 52–78; RESP 9–22; TEMP 36.3–36.7; O2SAT 87–98
[2020-07-30] MEDS: TRAMadol 50 mg Tablet PO ×4 (01:49→20:44)
[2020-07-30] MEDS: heparin 5,000 unit/mL INJ 1 mL 5000 UNIT SUBCUT ×3 (05:35→21:23)
[2020-07-30 06:09] LABS: Basophils # 0.1 10^3/uL (0.0-0.1); Eosinophils # 0.9 10^3/uL (0.0-0.8); Eosinophils % 9.6 %; Hematocrit 25.9 % (37.0-47.0); Hemoglobin 8.1 g/dL (11.5-15.3); Lymphocytes # 1.9 10^3/uL (0.8-4.8); Lymphocytes % 20.2 %; Mean Corpuscular HGB Conc 31.3 g/dL (30.0-36.0); Mean Corpuscular Hemoglobin 27.8 pg (28.0-34.0); Mean Platelet Volume 10.8 fL (7.4-10.4); Monocytes # 0.6 10^3/uL (0.2-0.9); Monocytes % 6.7 %; Neutrophils # 5.78 10^3/uL (1.8-7.7); Neutrophils % 62.2 %; Nucleated Red Blood Cells % 0 %; Platelet Count 248 10^3/cmm (130-400); Red Blood Count 2.91 10^6/uL (4.1-5.3); White Blood Count 9.3 10^3/uL (4.0-10.0)
[2020-07-30 06:26] LABS: Glucose Point of Care 108 mg/dL (70-110)
[2020-07-30 06:33] LABS: Alanine Aminotransferase 11 U/L (0-33); Albumin Level 2.8 g/dL (3.5-5.2); Alkaline Phosphatase 66 IU/L (35-105); Anion Gap 13.9 (5-19); Aspartate Amino Transferase 15 U/L (0-32); Blood Urea Nitrogen 63 mg/dL (8-23); Calcium 8.6 mg/dL (8.5-10.5); Carbon Dioxide 23 mmol/L (22-29); Chloride 97 mmol/L (98-107); Globulin 2.7 g/dL (1.3-4.6); Glucose 107 mg/dL (65-115); Osmolality Calculated 286 mOsm/kg (285-295); Phosphorus 5.7 mg/dL (2.5-4.5); Potassium 4.9 mmol/L (3.5-5.1); Sodium 129 mmol/L (136-145); Total Bilirubin 0.3 mg/dL (0.15-1.2); Total Protein 5.5 g/dL (6.6-8.7)
--- NOTE | 2020-07-30 07:37 | P.PN_ITS ---
Subjective Subjective: Interval history: feels better. off oxygen overnight. no edema. feels better. drinks a lot of water. Medications: Reviewed: Yes Medication Review Details: Current Medications Acetaminophen (Acetaminophen 325 Mg Tablet) 650 mg PO Q4H PRN PRN Reason: MILD PAIN OR INCREASE TEMP Last Admin: 07/26/20 21:21 Dose: 650 mg Documented by: Amlodipine Besylate (Amlodipine 10 Mg Tablet) 10 mg PO DAILY [facility] Amoxicillin/Clavulanate Potassium (Amoxicillin-Clav 250-62.5 Mg/5 Ml Btl 100 Ml) 250 mg PO BID [facility]; Protocol Last Admin: 07/29/20 17:24 Dose: 5 ml Documented by: Aspirin (Aspirin 81 Mg Ec Tablet) 81 mg PO DAILY [facility] Last Admin: 07/29/20 08:33 Dose: 81 mg Documented by: Atorvastatin Calcium (Atorvastatin 40 Mg Tablet) 10 mg PO BEDTIME [facility] Last Admin: 07/29/20 20:16 Dose: 10 mg Documented by: Dextrose (Dextrose 50% Syringe 50 Ml) 25 ml IVP ONCE PRN; Protocol PRN Reason: hypoglycemia protocol Dextrose (Dextrose 50% Syringe 50 Ml) 50 ml IVP PRN PRN; Protocol PRN Reason: hypoglycemia protocol Gabapentin (Gabapentin 100 Mg Capsule) 200 mg PO BID [facility] Last Admin: 07/29/20 17:23 Dose: 200 mg Documented by: Glucagon (Glucagon 1 Mg/Ml Inj 1 Ml) 1 mg IM ONCE PRN; Protocol PRN Reason: Adult Acute Hypoglycemia Prot. Heparin Sodium (Beef Lung) (Heparin 5,000 Unit/Ml Inj 1 Ml) 5,000 unit SUBCUT Q8H [facility] Last Admin: 07/30/20 05:35 Dose: 5,000 unit Documented by: Hydralazine HCl (Hydralazine 25 Mg Tablet) 25 mg PO TID [facility] Last Admin: 07/29/20 20:16 Dose: 25 mg Documented by: Propofol (Diprivan) 1,000 mg in 100 mls @ 0 mls/hr IV .Q0M [facility] Last Infusion: 07/26/20 01:39 Dose: 11.3 mls/hr Documented by: Sodium Chloride (Sodium Chloride 0.9%) 1,000 mls @ 100 mls/hr IV .Q10H [facility] Last Infusion: 07/28/20 18:00 Dose: 0 mls/hr Documented by: Insulin Aspart (Insulin Aspart 100 Unit/1 Ml) 0 unit SUBCUT WM&BEDTIME [facility]; Protocol Last Admin: 07/30/20 07:26 Dose: Not Given Documented by: Metoprolol Succinate (Metoprolol Succinate Er (24 Hr) 25 Mg Tablet) 12.5 mg PO DAILY [facility] Last Admin: 07/29/20 08:40 Dose: Not Given Documented by: Ondansetron HCl (Ondansetron 2 Mg/Ml Sdv 2 Ml) 4 mg IVP Q6H PRN PRN Reason: NAUSEA AND VOMITING Last Admin: 07/29/20 17:54 Dose: 4 mg Documented by: Sodium Chloride (Sodium Chloride 1 Gm Tablet) 1 gm PO BID [facility] Last Admin: 07/29/20 17:24 Dose: 1 gm Documented by: Tramadol HCl (Tramadol 50 Mg Tablet) 50 mg PO Q6H PRN PRN Reason: MODERATE PAIN Last Admin: 07/30/20 07:25 Dose: 50 mg Documented by: Vitals/I&O/Wt Last Vital Signs Temp 97.7 F 07/30/20 04:00 Pulse 60 07/30/20 06:00 Resp 13 07/30/20 04:00 BP 142/59 07/30/20 04:00 Pulse Ox 93 07/30/20 04:00 07/29/20 07/30/20 07/30/20 22:59 06:59 14:59 Intake Total 520 / 1000 Output Total 900 / 900 450 / 1350 Balance -380 / 100 -450 / -350 Physical Exam Narrative: EXAM NARRATIVE: comfortable in bed, NARD- not using O2 VS noted- BP improved heent - nc/at, eomi, anicteric neck supple lungs- some b/l crackles heart reg, +HSm, +s1, s2 abd soft, nt, nd, +BS ext dec b/l edema in arms leg DM changes. no leg edema poor DP and PT pulses neuro- neuropathy of legs a,a, o x 3 Urinary Catheter Management^: Mcfarland: Cath Placed During This Visit: yes Reason for Continuing Indwelling Catheter: Accurate Measurement of Urinary Output in Critically Ill Patients Urinary Catheter Date of Insertion: 07/25/20 Urinary Catheter Time of Insertion: 07:10 Data : 07/30/20 05:34 07/30/20 05:34 A&P Additional A&P Information 1. GERARD -- she did not get a recent angiogram- it was cancelled as cr was already rising last week. - Given htn, flash pulm edema, and known PVD- check Renal artery duplex for possible DALE - renal us- rt 9.3 cm, left 10.3 cm, no DALE -monitor chemistries - cr slowly improving -cr baseline is 1.2 on 03/26/20. was 1.7 already on 07-21-20. was 1.9 on admission- kelly w/ diuresis - monitor chemistries - cr remains stbale Etiology of GERARD- presumed ATN from normalizing BP vs Q TMA from HTN urgency- less likely -await ua - spep/ upep- pending, sent since she has anemia and GERARD -normal ck -monitor UOP and chemistries -approx 1 gm proteinuria- not nephrotic 2. hyponatremia- from GERARD, lasix, volume overload. na seems to be approx 130 for last 5 months -urine lytes- were ordered, not sent -reorder ua and urine lytes -normal tsh -fluid restrict -hold ivf and lasix -hold dopamine- can cause hyponatremia -salt tab per cardiology- 3. hyponatremia can be from - further therapy as per cardilogy- when cr normalizes, i agree that she would likely benefit from cardiac cath- though elevated risk of SHAILA 4 htn and bradycardia- cardiology is following- on norvasc, hydralazine prn and low dose beta diogenes. consider stopping beta diogenes. will change hydralazine to q 8 hrs -if cr remains stable or improving- restart ARB soon- if goes home, check chem 7 as outpt then start losartan 4. anemia- await SPEP w/ GERARD -neg UPEP -high % sat, ferritin 285- unlikely CRYSTAL -full anemia eval per medicine 5. hyperphosphatemia- low phos diet- start a binder 6. Diastolic dysfunction grade 2 and moderate - per cardiology -if cr improving next week start ARB and monitor discussed w/ pt and RN Attestations Medical Necessity Statement*: gerard, hyponatremia, anemia, htn- per medicine Time Spent in Patient Care: 16 - 35 minutes Coding Level of Care Code Acute Strategic Planning Analyst for Janice Long
[2020-07-30] MEDS: sodium chloride 1 gm Tablet PO ×2 (09:21→17:50)
[2020-07-30] MEDS: sevelamer 800 mg Tablet PO ×3 (09:21→17:49)
[2020-07-30] MEDS: aspirin 81 mg EC Tablet PO (09:21)
[2020-07-30] MEDS: hyDRALAzine 25 mg Tablet PO ×3 (09:22→20:43)
[2020-07-30] MEDS: amlodipine 10 mg Tablet PO (09:22)
[2020-07-30] MEDS: gabapentin 100 mg Capsule 200 MG PO ×2 (09:22→17:49)
--- NOTE | 2020-07-30 10:15 | PC.NURSE ---
Dr. Rai notified patient SB, HR 50s. BP 152/64. Verbal order to hold metoprolol. Nurse to continue to monitor.
[2020-07-30 11:12] LABS: Bilirubin Urine Neg (Negative); Blood Urine 2+ (Negative); Glucose Urine UA Norm (Normal); Ketones Urine Negative (Negative); Leukocyte Esterase Urine Negative (Negative); Nitrate Urine Negative (Negative); Protein Urine 1+ (Negative); Specific Gravity, Urine 1.015 (1.005-1.030); Urine Appearance Clear (CLEAR); Urine Color Yellow (Yellow); Urobilinogen Urine Norm (Negative); pH Urine 5 (5-7)
[2020-07-30 11:19] LABS: WBC Urine 0-4 /hpf (0-5)
--- NOTE | 2020-07-30 11:19 | P.PN_ITS ---
Subjective Subjective: Interval history: Patient is feeling well. Denies complaints of chest pain, shortness of breath or palpitations. Renal function is improving. Vitals/I&O/Wt Last Vital Signs Temp 97.8 F 07/30/20 08:00 Pulse 57 L 07/30/20 10:15 Resp 13 07/30/20 08:00 BP 152/64 07/30/20 08:00 Pulse Ox 92 07/30/20 10:15 07/29/20 07/30/20 07/30/20 22:59 06:59 14:59 Intake Total 520 / 1000 Output Total 900 / 900 450 / 1350 Balance -380 / 100 -450 / -350 Physical Exam Narrative: EXAM NARRATIVE: GENERAL: Averagely built and averagely nourished, sitting in bed at the time of evaluation HEENT: No pallor or icterus. NECK: No JVD appreciated. CARDIOVASCULAR SYSTEM: S1-S2 regular. No S3 or S4 present. Grade 3/6 harsh ejection systolic murmur in aortic area with radiation to carotids. RESPIRATORY SYSTEM: Chest clear to auscultation anteriorly. No use of accessory muscles. ABDOMEN: Soft, nontender and nondistended. Normal bowel sounds present. EXTREMITIES: No cyanosis or clubbing. No edema. Monophasic Doppler pulses DP and PT bilaterally. Left hand swollen at IV access site. CONDUIT HELPER: Patient is alert oriented ?3. No focal neurological deficits. SKIN: Normal turgor and temperature. No breakdown, rash or nail changes noted. PSYCH: Normal insight and judgment. Urinary Catheter Management^: Mcfarland: Cath Placed During This Visit: yes Reason for Continuing Indwelling Catheter: Accurate Measurement of Urinary Output in Critically Ill Patients Urinary Catheter Date of Insertion: 07/25/20 Urinary Catheter Time of Insertion: 07:10 Data : 07/31/20 04:53 07/31/20 04:53 A&P Assessment and plan (1) Acute respiratory failure: In setting of flash pulmonary edema -resolved. Patient has been extubated and is currently on room air. Status: Acute (2) NSTEMI (non-ST elevated myocardial infarction): Likely type II in setting of hypoxia and markedly elevated blood pressure with concentric left ventricular hypertrophy and aortic stenosis causing subendocardial ischemia. -continue aspirin, statin and beta-diogenes -Echocardiogram with preserved left ventricle systolic function with possible hypokinesis of apical inferior and apical septal katz. -Given her extensive PAD as well as wall motion abnormality on her echocardiogram there is a high likelihood that she has coronary artery disease. -I think she would benefit from stress testing for further risk stratification. -Patient is currently chest pain-free and is hesitant to undergo stress testing. -Given her moderate aortic stenosis probably at some point in future she would require coronary angiogram. Likely will need as outpatient , once renal function has normalized. Status: Acute (3) Pulmonary edema: -resolved. Remains on room air. -Agree with doing renal arterial Doppler to assess for renal artery stenosis given concern for flash pulmonary edema and worsening renal function. Status: Acute Qualifiers: Chronicity: acute Qualified Code(s): J81.0 - Acute pulmonary edema (4) Peripheral vascular disease: Plan for peripheral angiogram possibly in next few weeks with Dr. Steele once renal function normalizes Status: Acute (5) Essential hypertension: Her elevated blood pressure likely in setting of hypoxia and respiratory distress as it came down to 130s without any antihypertensives. Blood pressure elevated today. Increase amlodipine to 10 mg starting tomorrow. -Continue to monitor her blood pressure closely. started on hydralazine. Status: Acute (6) Hyperlipidemia: Status: Acute Qualifiers: Hyperlipidemia type: unspecified Qualified Code(s): E78.5 - Hyperlipidemia, unspecified (7) Diabetes mellitus: Status: Acute Qualifiers: Diabetes mellitus type: type 2 Diabetes mellitus residential insulin use: without joint terminal attack controller use Diabetes mellitus complication status: with kidney complications Diabetes mellitus complication detail: with chronic kidney disease Additional A&P Information GERARD on CKD stage III : Creatinine has improved slightly. Today is 2.8. Likely prerenal. Nephrology following. Got IV hydration. Bradycardia: Metoprolol has been downtitrated. Moderate aortic stenosis:Follow as outpatient hyperkalemia: Resolved; agree with holding valsartan Hyponatremia: Follow-up BMP in a.m. Normocytic anemia: Hgb IS >8 today. If hemoglobin drops below 7, consider blood transfusion. Thrombocytosis: Resolved Right foot ulcer: Being followed by wound care. Hypoalbuminemia Thank you for allowing me to participate in patient's care. Please feel free to call with questions or concerns Attestations Medical Necessity Statement*: Care expected to cross 2 midnights. Coding Level of Care Code Acute Document Specialist for Chg Fwd Diagnoses Acute respiratory failure J96.00 NSTEMI (non-ST elevated myocardial infarction) I21.4 Pulmonary edema J81.0 Chronicity: acute Peripheral vascular disease I73.9 Essential hypertension I10 Hyperlipidemia E78.5 Hyperlipidemia type: unspecified Diabetes mellitus E11.9 Diabetes mellitus type: type 2 Diabetes mellitus residential insulin use: without residential use Diabetes mellitus complication status: with kidney complications Diabetes mellitus complication detail: with chronic kidney disease
[2020-07-30 11:20] LABS: Add Urine Culture? No; Bacteria Urine 1+ /hpf; Squamous Epithelial Cell Urine 40-55 /hpf (0-5)
[2020-07-30 11:23] LABS: Glucose Point of Care 114 mg/dL (70-110)
[2020-07-30 11:24] LABS: Potassium, Radom Urine 14 mmol/L; Urine Creatinine 59 mg/dL (28-217); Urine Random Chloride 20 mmol/L; Urine Random Sodium 35 mmol/L
--- NOTE | 2020-07-30 11:31 | PC.SOCIAL ---
*IMM* Updated and pt gave another copy.
[2020-07-30] MEDS: acetaminophen 325 mg Tablet 650 MG PO (11:34)
--- NOTE | 2020-07-30 12:17 | PM.PN ---
Subjective Subjective: Interval history: No acute event overnight.Vitals stable except for sinus bradycardia. Deny any SOB. labs reviewed. Vitals/I&O/Wt Last Vital Signs Temp 97.8 F 07/30/20 08:00 Pulse 57 L 07/30/20 10:15 Resp 13 07/30/20 08:00 BP 152/64 07/30/20 08:00 Pulse Ox 92 07/30/20 10:15 07/29/20 07/30/20 07/30/20 22:59 06:59 14:59 Intake Total 520 / 1000 Output Total 900 / 900 450 / 1350 Balance -380 / 100 -450 / -350 Physical Exam Const: COMMON NORMALS: patient oriented x3 HENMT: COMMON NORMALS: normocephalic and atraumatic HEAD & SCALP: normocephalic and atraumatic Chest: COMMONS NORMALS: normal inspection of the chest and normal palpation of entire chest wall CHEST: Yes Symmetrical chest wall rise Resp: COMMON NORMALS: normal respiratory effort, No retractions, No use of accessory muscles and clear to auscultation bilaterally EFFORT & INSPECTION: Yes symmetric chest movement AUSCULTATION: clear to auscultation bilaterally Cardio: COMMON NORMALS: regular rate, regular rhythm, S1 normal heart sound present, S2 normal heart sound present and Peripheral pulses 2+ throughout RATE: regular rate RHYTHM: regular rhythm HEART SOUNDS: S1 normal heart sound present and S2 normal heart sound present PERIPHERAL PULSES: Peripheral pulses 2+ throughout OTHER: ESM present in rt 2 ICS. Radiating to carotid GI: COMMON NORMALS: Normal to inspection, nondistended, normoactive bowel sounds present, Soft to palpation, non-tender, No hepatosplenomegaly present and no masses AUSCULTATION: Yes normoactive bowel sounds PALPATION: Yes Soft to palpation and Yes No hepatosplenomegaly present RECTAL EXAM: deferred Extremity: COMMON NORMALS: no clubbing, cyanosis or edema and no pedal edema Neuro: COMMON NORMALS: patient oriented x3 Urinary Catheter Management^: Mcfarland: Cath Placed During This Visit: yes Reason for Continuing Indwelling Catheter: Accurate Measurement of Urinary Output in Critically Ill Patients Urinary Catheter Date of Insertion: 07/25/20 Urinary Catheter Time of Insertion: 07:10 Data : 07/30/20 05:34 07/30/20 05:34 A&P Additional A&P Information 74-year-old female with past medical history of severe peripheral vascular disease, chronic kidney disease, hypertension who presented with acute severe respiratory distress/labored breathing. Acute respiratory failure 2/2 to flash pulomanry edema. Her blood pressure is at 200 on presentation. Fluid overload and malignant hypertension are suspected as triggering factor for her pulmonary edema/CHF. Currently resolved. Extubated and stable. Pulmonary edema/fluid overload. Resolved with diuresis. We appreciate cardiology inputs. Possible infection/sepsis. I do not think that she is in septic shock. Most likely the short episode of hypotension was related to sedation. Leukocytosis is resolved. Possible aspiration pneumonia. : Initilaly on zyvox and zosyn.Was switched to Augmentin to cover for possible aspiration PNA. Cultures have been negative so far. Elevated troponin . 2/2 to Type II M/I : Demand ischemia versus hypertensive emergency with endorgan damage is suspected. Currently deny Chest pain, sob. Continue: Aspirin 81 mg oral daily, M.Succinate :12.5 mg oral daily, Lipitpr 10 mg oral daily Acute kidney injury on top of chronic kidney disease. Appreciate Dr. Khan's input. Additional testing is pending. Discussed with Dr. Lynn. We will continue current management and recheck kidney function tomorrow. If improved will discharge her home. Will need outpatient follow-up with nephrology. Hyperkalemia. Resolved Hyponatremia. 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 Mild and stable. Management per Anemia probably chronic. Received 2 unit of RBCs. Stable. FOBT Pending Diabetes. Insulin sliding scale. Hypertension. Stable. Continue current management DVT prophylaxis. Heparin. The plan of care was discussed with multidisciplinary team. Discussed with the patient. Attestations Medical Necessity Statement*: Patinet need to be in hospital for the management of GERARD, R/F and aspiration PNA. Coding Level of Care Code Acute Inspector Fibrous Wallboard for Chg Fwd Exam Detailed
[2020-07-30] MEDS: sodium chloride 0.9% (100 ml) 100 ML 240 ML (14:04)
--- NOTE | 2020-07-30 17:07 | PC.NURSE ---
Dr. Rai notified patient has crackles in lungs following blood transfusion and appears SOB. Telephone order received to administer lasix 20 mg IVP once now. RBTO.
[2020-07-30 17:19] LABS: Glucose Point of Care 127 mg/dL (70-110)
[2020-07-30] MEDS: FUROsemide 10 mg/mL SDV 2mL 20 MG IVP (17:47)
--- NOTE | 2020-07-30 18:28 | PC.NURSE ---
Family notified of patient moving rooms.
[2020-07-30] MEDS: atorvastatin 40 mg Tablet 10 MG PO (20:42)
[2020-07-30 21:10] LABS: Glucose Point of Care 124 mg/dL (70-110)
--- NOTE | 2020-07-30 22:15 | XRR_ITS ---
PROCEDURE INFORMATION: Exam: XR Chest, 1 View Exam date and time: 07/30/2020 10:33 PM Age: 75 years old Clinical indication: Device placement; Ng tube; Additional info: Ng tube placement TECHNIQUE: Imaging protocol: XR of the chest Views: 1 view. COMPARISON: CR XR chest 1V portable [id number] 07/26/2020 5:31 AM FINDINGS: Tubes, catheters and devices: A nasogastric tube is placed with its tip in the proximal stomach. There has been interval removal of the endotracheal tube. Lungs: Few increased linear opacities are seen in the lower hemithoraces likely representing atelectasis. Pleural space: There is some blunting of the costophrenic recesses bilaterally possibly secondary to small bilateral pleural effusions versus pleural thickening. Heart/Mediastinum: Unremarkable. No cardiomegaly. Bones/joints: Unremarkable. XR/XR chest 1V portable [id number] IMPRESSION: 1. Nasogastric tube tip in proximal stomach. 2. Few increased linear opacities are seen in the lower hemithoraces likely representing atelectasis. 3. Blunting of the costophrenic recesses possibly secondary to tiny pleural effusions versus pleural thickening.
--- NOTE | 2020-07-30 22:22 | CTR_ITS ---
PROCEDURE INFORMATION: Exam: CT Abdomen And Pelvis Without Contrast Exam date and time: 07/30/2020 10:23 PM Age: 75 years old Clinical indication: Bloating; Prior surgery; Surgery date: 6+ months; Surgery type: Hyst; Patient HX: Sbo w ng placed TECHNIQUE: Imaging protocol: Computed tomography of the abdomen and pelvis without contrast. Radiation optimization: All CT scans at this facility use at least one of these dose optimization techniques: automated exposure control; mA and/or kV adjustment per patient size (includes targeted exams where dose is matched to clinical indication); or iterative reconstruction. COMPARISON: US renal BI* [id number] 07/28/2020 6:29 AM RADIATION DOSE METRICS: Total DLP (mGy-cm): 552.31 FINDINGS: Tubes, catheters and devices: A nasogastric tube is placed with its tip in the proximal stomach. Pleural space: There are bilateral pleural effusions, right slightly larger than left. Liver: Normal. No mass. Gallbladder and bile ducts: Hyperdensities are seen within the gallbladder lumen compatible with gallstones. There is no evidence for gallbladder wall thickening or cholecystitis. Pancreas: Normal. No ductal dilation. Spleen: Normal. No splenomegaly. Adrenal glands: Normal. No mass. Kidneys and ureters: Strandy opacities are present in the perinephric fascia bilaterally compatible with chronic scarring. Stomach and bowel: Moderate stool is present within the ascending, transverse and descending colon. There are strandy opacities and consolidation superimposed over the pleural effusions bilaterally most probably representing atelectasis although bilateral basilar pneumonia cannot be excluded. Appendix: The appendix is visualized and is normal in configuration. Intraperitoneal space: Unremarkable. No free air. No significant fluid collection. Vasculature: Calcifications are seen within the thoracic and abdominal aorta, iliac arteries and femoral arteries bilaterally and within the branches of the celiac, superior and inferior mesenteric arteries and renal arteries bilaterally. Lymph nodes: Unremarkable. No enlarged lymph nodes. Urinary bladder: Mcfarland catheter is present. The bladder appears decompressed. Reproductive: Unremarkable as visualized. Bones/joints: Unremarkable. No acute fracture. Soft tissues: Unremarkable. CT/CT abdomen pelvis wo con [id number] IMPRESSION: 1. There are no acute abdominal findings. 2. Moderate stool is seen within the colon. 3. Bilateral pleural effusions with superimposed atelectasis although bilateral basilar pneumonia cannot be excluded. Radiation Dose CTDIVOL = (mGy): DLP = 552.31 (mGy-cm)
[2020-07-30] MEDS: pantoprazole 40 mg SDV IV (22:54)
--- NOTE | 2020-07-30 23:22 | PM.EVENT ---
Event Note Event Note: I was called to evaluate patient at the bedside for brown color emesis Patient was evaluated on stat basis She had coffee-ground emesis with blood clots in the container She was not endorsing any abdominal pain Her last bowel movement was yesterday No fever, blood pressure 156/62 mmHg S1, S2 sinus rhythm Clinically looks dehydrated Abdomen soft nontender bowel sound present Lower extremity pain with 1+ dorsalis pedis pulse no signs of gangrene or ulcer No acute respiratory distress Awake alert oriented x3 GCS 15 Plan Start Protonix 40 IV twice daily N.p.o., put NG tube to suction CT abdomen pelvis without contrast to rule out SBO Discontinue heparin and aspirin Not a candidate for SCDs because of peripheral arterial disease
[2020-07-30 23:30] LABS: Hematocrit 27.3 % (37.0-47.0); Hemoglobin 8.6 g/dL (11.5-15.3)
[2020-07-31] VITALS (34 sets, daily range): BP systolic 100–186; BP diastolic 49–88; PULSE 70–95; RESP 9–19; TEMP 36.9–37.6; O2SAT 84–100
--- NOTE | 2020-07-31 00:33 | PC.NURSE ---
late entry, assisted pt to bsc, pt c/o tightness in abd, sob, nausea, weakness, after getting back in bed pt vomited appx 100 ml brown coffee ground emesis with large clots, notified Dr Arreaga who came to see pt, NGT placed to LIS, abd CT, H/H, protonix IV ordered, VSS, continue to monitor
[2020-07-31] MEDS: HYDROmorphone 1 mg/mL INJ 1 mL IVP (04:05)
[2020-07-31 05:40] LABS: Basophils # 0.1 10^3/uL (0.0-0.1); Basophils % 0.7 %; Eosinophils # 0.2 10^3/uL (0.0-0.8); Eosinophils % 2.1 %; Hematocrit 21.2 % (37.0-47.0); Hemoglobin 6.9 g/dL (11.5-15.3); Lymphocytes # 1.2 10^3/uL (0.8-4.8); Lymphocytes % 10.8 %; Mean Corpuscular HGB Conc 32.5 g/dL (30.0-36.0); Mean Corpuscular Hemoglobin 28.5 pg (28.0-34.0); Mean Corpuscular Volume 87.6 fL (81-99); Mean Platelet Volume 10.9 fL (7.4-10.4); Monocytes # 0.5 10^3/uL (0.2-0.9); Monocytes % 4.7 %; Neutrophils # 8.68 10^3/uL (1.8-7.7); Neutrophils % 81.1 %; Nucleated Red Blood Cells % 0 %; Platelet Count 251 10^3/cmm (130-400); Red Blood Count 2.42 10^6/uL (4.1-5.3); White Blood Count 10.7 10^3/uL (4.0-10.0)
[2020-07-31 06:01] LABS: Alanine Aminotransferase 7 U/L (0-33); Albumin Level 2.6 g/dL (3.5-5.2); Alkaline Phosphatase 49 IU/L (35-105); Anion Gap 16.4 (5-19); Aspartate Amino Transferase 12 U/L (0-32); Calcium 8.4 mg/dL (8.5-10.5); Carbon Dioxide 20 mmol/L (22-29); Chloride 99 mmol/L (98-107); Globulin 2.4 g/dL (1.3-4.6); Glucose 125 mg/dL (65-115); Osmolality Calculated 297 mOsm/kg (285-295); Potassium 5.4 mmol/L (3.5-5.1); Sodium 130 mmol/L (136-145); Total Bilirubin 0.2 mg/dL (0.15-1.2)
[2020-07-31 06:03] LABS: Blood Urea Nitrogen 85 mg/dL (8-23)
[2020-07-31 06:40] LABS: Glucose Point of Care 121 mg/dL (70-110)
[2020-07-31] MEDS: ondansetron 2 mg/ML SDV 2 mL 4 MG IVP (08:50)
--- NOTE | 2020-07-31 08:55 | P.PN_ITS ---
Subjective Subjective: Interval history: Upper GI bleed overnight. NGT placed. Awaiting transfer to ICU Medications: Reviewed: Yes Vitals/I&O/Wt Last Vital Signs Temp 98.4 F 07/31/20 04:00 Pulse 74 07/31/20 06:00 Resp 16 07/31/20 04:05 BP 178/64 07/31/20 04:00 Pulse Ox 94 07/31/20 04:00 07/30/20 07/31/20 07/31/20 22:59 06:59 14:59 Intake Total 350 / 670 Output Total 1175 / 1175 475 / 1650 Balance -825 / -505 -475 / -980 Physical Exam 2 Urinary Catheter Management^: Mcfarland: Cath Placed During This Visit: yes Reason for Continuing Indwelling Catheter: Accurate Measurement of Urinary Output in Critically Ill Patients Urinary Catheter Date of Insertion: 07/25/20 Urinary Catheter Time of Insertion: 07:10 Data : 07/31/20 04:53 07/31/20 04:53 Micro: Microbiology 07/25/20 17:50 Blood Culture - Final Blood NO GROWTH AFTER 5 DAYS 07/25/20 17:55 Blood Culture - Final Blood NO GROWTH AFTER [address] Abd/Pel: Radiologist's impression: Kidneys and ureters: Strandy opacities are present in the perinephric fascia bilaterally compatible with chronic scarring. A&P Additional A&P Information Impression: 1. Acute kidney injury 2. Severe hypertension/flash pulmonary edema 3. Acute decrease Hb, anemia, Upper GI bleed 4. Chronic hyponatremia, stable 5. Hyperkalemia, may have worsened due to GI bleed 6. Hyperphosphatemia, on renvela Recommendation: NPO. Orders to transfuse 2uPRBC. IVF NSS Attestations Medical Necessity Statement*: Critically ill requiring transfer to ICU Time Spent in Patient Care: 16 - 35 minutes Coding Level of Care Code Acute Director Of Education And Training for Janice Long
--- NOTE | 2020-07-31 09:43 | P.CONIM_ITS ---
Providers/Reason For Consult Consulting Physican/Specialty*: General Surgery Jerod Garcia MD Reason for Consult*: Hematemesis. Attending Physician: Alejandro Rai MD Primary Care Provider: Crystal Olivia MD History of Present Illness History of Present Illness Elizabeth Lima is a 75 year old female originally admitted around a week ago for some respiratory distress/pulmonary edema. She has chronic peripheral vascular disease, chronic kidney disease, along with some other medical issues that are being addressed. Last night, the patient apparently had some episodes of emesis which included some blood clots and coffee-ground appearing material. She was started on a PPI and a nasogastric tube was inserted. She had been on subcutaneous heparin 3 times daily and a baby aspirin daily, both of which have been put on hold. I was asked to see the patient for consideration of an EGD. The patient tells me that she has no previous history of peptic ulcer disease. She denies any abdominal pain. She does not recall ever having to have an EGD in the past. Review of Systems GI: Denies: abdominal pain, hematochezia or melena Meds/Allergies Home Medications and Allergies Home Medications Medication Instructions Recorded Confirmed Last Taken Type aspirin 81 mg tablet,delayed 81 mg PO BEDTIME 04/30/20 07/25/20 07/22/20 21:00 History release atorvastatin 10 mg PO BEDTIME 07/23/20 07/25/20 07/22/20 21:00 History gabapentin 200 mg PO BID 07/23/20 07/25/20 07/23/20 10:30 History amlodipine 5 mg PO DAILY #30 tab 07/24/20 07/25/20 Unknown Rx carvedilol [Coreg] 3.125 mg PO BID #60 tab 07/24/20 07/25/20 Unknown Rx valsartan 160 mg PO DAILY 07/25/20 07/25/20 Unknown History Allergies Allergy/AdvReac Type Severity Reaction Status Date / Time diclofenac [From Voltaren] Allergy Intermediate Wound Verified 06/18/20 13:48 metformin Allergy ADR-Diarrhe Verified 06/18/20 13:48 a mold Allergy Unknown Verified 06/18/20 13:48 Current Medications Current Medications Generic Name Dose Route Start Last Admin Trade Name Freq PRN Reason Stop Dose Admin Acetaminophen 650 mg 07/26/20 20:10 07/30/20 11:34 Acetaminophen 325 Mg Tablet PO 650 mg Q4H PRN Administration MILD PAIN OR INCREASE TEMP Amlodipine Besylate 10 mg 07/30/20 09:00 07/30/20 09:22 Amlodipine 10 Mg Tablet PO 10 mg DAILY KIMBERLY Administration Aspirin 81 mg 07/29/20 09:00 07/30/20 09:21 Aspirin 81 Mg Ec Tablet PO 81 mg DAILY KIMBERLY Administration Atorvastatin Calcium 10 mg 07/25/20 21:00 07/30/20 20:42 Atorvastatin 40 Mg Tablet PO 10 mg BEDTIME KIMBERLY Administration Gabapentin 200 mg 07/25/20 18:00 07/30/20 17:49 Gabapentin 100 Mg Capsule PO 200 mg BID KIMBERLY Administration Heparin Sodium (Beef Lung) 5,000 unit 07/25/20 14:00 07/30/20 21:23 Heparin 5,000 Unit/Ml Inj 1 Ml SUBCUT 5,000 unit Q8H KIMBERLY Administration Hydralazine HCl 25 mg 07/29/20 09:00 07/30/20 20:43 Hydralazine 25 Mg Tablet PO 25 mg TID KIMBERLY Administration Insulin Aspart 0 unit 07/29/20 18:00 07/31/20 07:55 Insulin Aspart 100 Unit/1 Ml SUBCUT Not Given WM&BEDTIME KIMBERLY Protocol Metoprolol Succinate 12.5 mg 07/29/20 09:00 07/30/20 10:04 Metoprolol Succinate Er (24 Hr) 25 Mg Tablet PO Not Given DAILY KIMBERLY Ondansetron HCl 4 mg 07/29/20 17:34 07/31/20 08:50 Ondansetron 2 Mg/Ml Sdv 2 Ml IVP 4 mg Q6H PRN Administration NAUSEA AND VOMITING Sevelamer Carbonate 800 mg 07/30/20 08:00 07/30/20 17:49 Sevelamer 800 Mg Tablet PO 800 mg TIDWM KIMBERLY Administration Sodium Chloride 1 gm 07/28/20 19:00 07/30/20 17:50 Sodium Chloride 1 Gm Tablet PO 1 gm BID KIMBERLY Administration Tramadol HCl 50 mg 07/30/20 20:18 07/30/20 20:44 Tramadol 50 Mg Tablet PO 50 mg Q6H PRN Administration MODERATE PAIN PFSH Acute PFSH: Medical History CKD (chronic kidney disease) stage 3, GFR 30-59 ml/min Critical lower limb ischemia Diabetes mellitus Peripheral vascular disease Surgical History (Updated 07/31/20 @ 10:16 by Jerod Garcia MD) Surgical history unknown Hysterectomy documented previously, but patient still appears to have her uterus on her CAT scan Family History Other Cancer Rheumatoid arthritis Social History Smoking and tobacco status: never smoked Alcohol intake: never Vitals/I&O/Wt Last Vital Signs Temp 98.4 F 07/31/20 04:00 Pulse 74 07/31/20 06:00 Resp 16 07/31/20 04:05 BP 178/64 07/31/20 04:00 Pulse Ox 94 07/31/20 04:00 07/30/20 07/31/20 07/31/20 22:59 06:59 14:59 Intake Total 350 / 670 Output Total 1175 / 1650 475 / 1650 Balance -825 / -980 -475 / -980 Physical Exam Narrative: EXAM NARRATIVE: The patient was encountered in her hospital room. She is resting but is easily arousable. She tends to want to go back to sleep. She has a nasogastric tube in place that has some old coffee-ground appearing material in the tubing and some very dark liquid in the canister, but there does not appear to be any ongoing drainage of any kind. The pupils seem equal. No carotid bruits are heard. The lungs are clear anteriorly. The heart is regular but there is a mild systolic murmur best heard at the right upper sternal border. The abdomen is moderately obese but is soft and completely nontender on my exam. I cannot appreciate any abdominal masses. The extremities reveal no significant edema. The patient can move all limbs to command. Urinary Catheter Management^: Mcfarland: Cath Placed During This Visit: yes Reason for Continuing Indwelling Catheter: Accurate Measurement of Urinary Output in Critically Ill Patients Urinary Catheter Date of Insertion: 07/25/20 Urinary Catheter Time of Insertion: 07:10 Data Micro: Micro: Microbiology 07/25/20 17:50 Blood Culture - Fi nal Blood NO GROWTH AFTER 5 DAYS 07/25/20 17:55 Blood Culture - Fi nal Blood NO GROWTH AFTER 5 DAYS Imaging^: CT Abd/Pel: Radiologist's impression: CT abdomen/pelvis 07/30/2020 IMPRESSION: 1. There are no acute abdominal findings. 2. Moderate stool is seen within the colon. 3. Bilateral pleural effusions with superimposed atelectasis although bilateral basilar pneumonia cannot be excluded. A&P Assessment and plan (1) Hematemesis: The patient clearly has some evidence of some bleeding from her stomach last night. She does not appear to have any ongoing bleeding currently. The patient's subcutaneous heparin and baby aspirin have been put on hold. The patient is on a PPI, her anticoagulants have been put on hold and she does not appear to have any ongoing bleeding. I do not think an urgent EGD is going to change her management at the present time, so I am comfortable keeping an eye on things for now. An EGD is certainly always an option if she has any evidence of recurrent bleeding. Continue PPI. Continue NG tube for now. Check H. pylori antibody. Status: Acute (2) Anemia: I think this is chronic. The patient's hemoglobin was 8.1 yesterday morning so she has dropped roughly a gram since then. She is being transfused today. Status: Acute Consult Attestations Medical Necessity Statement: See admitting service's notation. Coding Level of Care Code Acute Lending Advisor for [facility] Diagnoses Hematemesis K92.0 Anemia D64.9
[2020-07-31] MEDS: pantoprazole 40 mg SDV IV ×2 (10:13→20:37)
[2020-07-31] MEDS: sodium chloride 1 gm Tablet PO ×2 (10:14→17:38)
[2020-07-31] MEDS: gabapentin 100 mg Capsule 200 MG PO ×2 (10:14→17:38)
[2020-07-31] MEDS: amlodipine 10 mg Tablet PO (10:14)
[2020-07-31] MEDS: hyDRALAzine 25 mg Tablet PO ×2 (10:15→17:39)
[2020-07-31] MEDS: metoprolol succinate ER (24 HR) 25 mg Tablet 12.5 MG PO (10:15)
[2020-07-31] MEDS: piperacillin-tazobactam 3.375 GM in sodium chloride 0.9% (plus) 50 ML IV ×2 (10:20→20:37)
--- NOTE | 2020-07-31 10:35 | PM.PN ---
Subjective Subjective: Interval history: Patient had coffee ground emesis. Has NG tube in place. HgB dropped to 6.9. She is drowsy right now Vitals/I&O/Wt Last Vital Signs Temp 98.4 F 07/31/20 04:00 Pulse 81 07/31/20 10:02 Resp 13 07/31/20 08:00 BP 123/59 07/31/20 08:00 Pulse Ox 92 07/31/20 10:02 07/30/20 07/31/20 07/31/20 22:59 06:59 14:59 Intake Total 350 / 670 Output Total 1175 / 1175 475 / 1650 Balance -825 / -505 -475 / -980 Physical Exam Narrative: EXAM NARRATIVE: GENERAL: Averagely built and averagely nourished, sitting in bed at the time of evaluation HEENT: No pallor or icterus. NECK: No JVD appreciated. CARDIOVASCULAR SYSTEM: S1-S2 regular. No S3 or S4 present. Grade 3/6 harsh ejection systolic murmur in aortic area with radiation to carotids. RESPIRATORY SYSTEM: Chest clear to auscultation anteriorly. No use of accessory muscles. ABDOMEN: Soft, nontender and nondistended. Normal bowel sounds present. EXTREMITIES: No cyanosis or clubbing. No edema. Monophasic Doppler pulses DP and PT bilaterally. Left hand swollen at IV access site. [employer]: Patient is alert oriented ?3. No focal neurological deficits. SKIN: Normal turgor and temperature. No breakdown, rash or nail changes noted. PSYCH: Normal insight and judgment. Urinary Catheter Management^: Mcfarland: Cath Placed During This Visit: yes Reason for Continuing Indwelling Catheter: Accurate Measurement of Urinary Output in Critically Ill Patients Urinary Catheter Date of Insertion: 07/25/20 Urinary Catheter Time of Insertion: 07:10 Data : 08/01/20 18:18 08/01/20 02:30 Micro: Microbiology 07/25/20 17:50 Blood Culture - Final Blood NO GROWTH AFTER 5 DAYS 07/25/20 17:55 Blood Culture - Final Blood NO GROWTH AFTER 5 DAYS A&P Assessment and plan (1) Acute respiratory failure: In setting of flash pulmonary edema -resolved. Patient has been extubated and is currently on room air. Status: Acute (2) NSTEMI (non-ST elevated myocardial infarction): Likely type II in setting of hypoxia and markedly elevated blood pressure with concentric left ventricular hypertrophy and aortic stenosis causing subendocardial ischemia. Aspirin held secondary to significant upper GI bleed, statin and beta-diogenes -Echocardiogram with preserved left ventricle systolic function with possible hypokinesis of apical inferior and apical septal katz. -Given her extensive PAD as well as wall motion abnormality on her echocardiogram there is a high likelihood that she has coronary artery disease. -I think she would benefit from stress testing for further risk stratification. -Patient is currently chest pain-free and is hesitant to undergo stress testing. -Given her moderate aortic stenosis probably at some point in future she would require coronary angiogram. Likely will need as outpatient , once renal function has normalized. Status: Acute (3) Pulmonary edema: -resolved. Remains on room air. -Agree with doing renal arterial Doppler to assess for renal artery stenosis given concern for flash pulmonary edema and worsening renal function. Status: Acute Qualifiers: Chronicity: acute Qualified Code(s): J81.0 - Acute pulmonary edema (4) Peripheral vascular disease: Plan for peripheral angiogram possibly in next few weeks with Dr. Steele once renal function normalizes Status: Acute (5) Essential hypertension: Status: Acute (6) Hyperlipidemia: Status: Acute Qualifiers: Hyperlipidemia type: unspecified Qualified Code(s): E78.5 - Hyperlipidemia, unspecified (7) Diabetes mellitus: Status: Acute Qualifiers: Diabetes mellitus type: type 2 Diabetes mellitus intermission coordinator insulin use: without intermission coordinator use Diabetes mellitus complication status: with kidney complications Diabetes mellitus complication detail: with chronic kidney disease Additional A&P Information Upper GI bleed: Patient has NG in place. Will likely undergo endoscopy. S/p 4 units blood transfusion GERARD on CKD stage III : Creatinine is stable. Today is 2.8. Likely prerenal. Nephrology following. Got IV hydration. Bradycardia: Metoprolol has been downtitrated. Moderate aortic stenosis:Follow as outpatient hyperkalemia: Resolved; agree with holding valsartan Hyponatremia: Follow-up BMP in a.m. Normocytic anemia: Hgb IS 6.9. Getting blood transfusion Thrombocytosis: Resolved Right foot ulcer: Being followed by wound care. Hypoalbuminemia Thank you for allowing me to participate in patient's care. 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
[2020-07-31 11:09] LABS: Glucose Point of Care 144 mg/dL (70-110)
--- NOTE | 2020-07-31 11:10 | PC.NURSE ---
dr ayala has ordered that pt be transferred to icu.brittny pteeiot,pt's son, notified.
--- NOTE | 2020-07-31 11:39 | PC.NURSE ---
ngt maicol has been dark,dark red in color.had 75 cc out so far this shift.dr gonsalves came by to see pt earlier..no orders received.pt has been very sleepy..easily awakened..follows commands..hand hris analyst equal..but quickly falls back to sleep.pt has been typed and crossmatched for 2 units prbc's.awaiting units to become available.report phoned to antonino in icu.transferred to icu 10 via bed at 1130.
[2020-07-31 12:12] LABS: H. Pylori IgG Antibody Negative (Negative)
--- NOTE | 2020-07-31 12:20 | P.PN_ITS ---
Subjective Subjective: Interval history: In the las 24 h.She had zora coffee ground emesis.Hb dropped to 6.9. She was kept NPO. Protonix was started. Receiving 2us PRBC. She is also having water dark tary stool.She has been nauseous. Medications: Reviewed: Yes Medication Review Details: Current Medications Acetaminophen (Acetaminophen 325 Mg Tablet) 650 mg PO Q4H PRN PRN Reason: MILD PAIN OR INCREASE TEMP Last Admin: 07/26/20 21:21 Dose: 650 mg Documented by: Amlodipine Besylate (Amlodipine 10 Mg Tablet) 10 mg PO DAILY [facility] Amoxicillin/Clavulanate Potassium (Amoxicillin-Clav 250-62.5 Mg/5 Ml Btl 100 Ml) 250 mg PO BID [facility]; Protocol Last Admin: 07/29/20 17:24 Dose: 5 ml Documented by: Aspirin (Aspirin 81 Mg Ec Tablet) 81 mg PO DAILY [facility] Last Admin: 07/29/20 08:33 Dose: 81 mg Documented by: Atorvastatin Calcium (Atorvastatin 40 Mg Tablet) 10 mg PO BEDTIME [facility] Last Admin: 07/29/20 20:16 Dose: 10 mg Documented by: Dextrose (Dextrose 50% Syringe 50 Ml) 25 ml IVP ONCE PRN; Protocol PRN Reason: hypoglycemia protocol Dextrose (Dextrose 50% Syringe 50 Ml) 50 ml IVP PRN PRN; Protocol PRN Reason: hypoglycemia protocol Gabapentin (Gabapentin 100 Mg Capsule) 200 mg PO BID [facility] Last Admin: 07/29/20 17:23 Dose: 200 mg Documented by: Glucagon (Glucagon 1 Mg/Ml Inj 1 Ml) 1 mg IM ONCE PRN; Protocol PRN Reason: Adult Acute Hypoglycemia Prot. Heparin Sodium (Beef Lung) (Heparin 5,000 Unit/Ml Inj 1 Ml) 5,000 unit SUBCUT Q8H [facility] Last Admin: 07/30/20 05:35 Dose: 5,000 unit Documented by: Hydralazine HCl (Hydralazine 25 Mg Tablet) 25 mg PO TID [facility] Last Admin: 07/29/20 20:16 Dose: 25 mg Documented by: Propofol (Diprivan) 1,000 mg in 100 mls @ 0 mls/hr IV .Q0M [facility] Last Infusion: 07/26/20 01:39 Dose: 11.3 mls/hr Documented by: Sodium Chloride (Sodium Chloride 0.9%) 1,000 mls @ 100 mls/hr IV .Q10H [facility] Last Infusion: 07/28/20 18:00 Dose: 0 mls/hr Documented by: Insulin Aspart (Insulin Aspart 100 Unit/1 Ml) 0 unit SUBCUT WM&BEDTIME [facility]; Protocol Last Admin: 07/30/20 07:26 Dose: Not Given Documented by: Metoprolol Succinate (Metoprolol Succinate Er (24 Hr) 25 Mg Tablet) 12.5 mg PO DAILY [facility] Last Admin: 07/29/20 08:40 Dose: Not Given Documented by: Ondansetron HCl (Ondansetron 2 Mg/Ml Sdv 2 Ml) 4 mg IVP Q6H PRN PRN Reason: NAUSEA AND VOMITING Last Admin: 07/29/20 17:54 Dose: 4 mg Documented by: Sodium Chloride (Sodium Chloride 1 Gm Tablet) 1 gm PO BID [facility] Last Admin: 07/29/20 17:24 Dose: 1 gm Documented by: Tramadol HCl (Tramadol 50 Mg Tablet) 50 mg PO Q6H PRN PRN Reason: MODERATE PAIN Last Admin: 07/30/20 07:25 Dose: 50 mg Documented by: Vitals/I&O/Wt Last Vital Signs Temp 98.4 F 07/31/20 04:00 Pulse 81 07/31/20 10:02 Resp 13 07/31/20 08:00 BP 123/59 07/31/20 08:00 Pulse Ox 92 07/31/20 10:02 07/30/20 07/31/20 07/31/20 22:59 06:59 14:59 Intake Total 350 / 670 30 / 30 Output Total 1175 / 1175 475 / 1650 75 / 75 Balance -825 / -505 -475 / -980 -45 / -45 Physical Exam Const: COMMON NORMALS: patient oriented x3 HENMT: COMMON NORMALS: normocephalic and atraumatic HEAD & SCALP: normocephalic and atraumatic Chest: COMMONS NORMALS: normal inspection of the chest CHEST: Yes Symmetrical chest wall rise Resp: COMMON NORMALS: normal respiratory effort, No retractions, No use of accessory muscles and clear to auscultation bilaterally EFFORT & INSPECTION: Yes symmetric chest movement AUSCULTATION: clear to auscultation bilaterally OTHER: Minimal B/L basal crackles present. Cardio: COMMON NORMALS: regular rate, regular rhythm, S1 normal heart sound present, S2 normal heart sound present, No gallops present (Cardio), No murmurs present (Cardio), No rub (Cardio) and Peripheral pulses 2+ throughout RATE: regular rate RHYTHM: regular rhythm HEART SOUNDS: S1 normal heart sound present and S2 normal heart sound present PERIPHERAL PULSES: Peripheral pulses 2+ throughout OTHER: ESM present in rt 2 ICS. Radiating to carotid GI: COMMON NORMALS: Normal to inspection, nondistended, normoactive bowel sounds present, Soft to palpation, non-tender, No hepatosplenomegaly present and no masses AUSCULTATION: Yes normoactive bowel sounds PALPATION: Yes Soft to palpation and Yes No hepatosplenomegaly present RECTAL EXAM: deferred Extremity: COMMON NORMALS: no clubbing, cyanosis or edema and no pedal edema Neuro: COMMON NORMALS: patient oriented x3 Urinary Catheter Management^: Mcfarland: Cath Placed During This Visit: yes Reason for Continuing Indwelling Catheter: Accurate Measurement of Urinary Output in Critically Ill Patients Urinary Catheter Date of Insertion: 07/25/20 Urinary Catheter Time of Insertion: 07:10 Data : 07/31/20 04:53 07/31/20 04:53 Micro: Microbiology 07/25/20 17:50 Blood Culture - Final Blood NO GROWTH AFTER 5 DAYS 07/25/20 17:55 Blood Culture - Final Blood NO GROWTH AFTER 5 DAYS A&P Additional A&P Information 74-year-old female with past medical history of severe peripheral vascular disease, chronic kidney disease, hypertension who presented with acute severe respiratory distress/labored breathing. #UGIB :Likely 2/2 PUD s/p 4Us PRBC : NPO Protonix 40 mg IV BID Monitor CBC #Acute respiratory failure 2/2 to flash pulomanry edema. Her blood pressure is at 200 on presentation. Fluid overload and malignant hypertension are suspected as triggering factor for her pulmonary edema/CHF. Currently resolved. Extubated and stable. Pulmonary edema/fluid overload. Resolved with diuresis. We appreciate cardiology inputs. Possible infection/sepsis. I do not think that she is in septic shock. Most likely the short episode of hypotension was related to sedation. Leukocytosis is resolved. Possible aspiration pneumonia. : Initilaly on zyvox and zosyn.Was switched to Augmentin to cover for possible aspiration PNA.On 07/31 Post UGIB she was restarted on Zosyn. Cultures have been negative so far. Elevated troponin . 2/2 to Type II M/I : Demand ischemia versus hypertensive emergency with endorgan damage is suspected. Currently deny Chest pain, sob. Continue: Aspirin 81 mg oral daily, M.Succinate :12.5 mg oral daily, Lipitpr 10 mg oral daily Acute kidney injury on top of chronic kidney disease. Appreciate Dr. Khan's input. Additional testing is pending. Discussed with Dr. Lynn. We will continue current management and recheck kidney function tomorrow. If improved will discharge her home. Will need outpatient follow-up with nephrology. Hyperkalemia. Resolved Hyponatremia. 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 Mild and stable. Management per Anemia probably chronic. Received 2 unit of RBCs. Stable. FOBT Pending Diabetes. Insulin sliding scale. Hypertension. Stable. Continue current management DVT prophylaxis. Heparin. The plan of care was discussed with multidisciplinary team. Discussed with the patient. 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
--- NOTE | 2020-07-31 14:42 | PC.NURSE ---
Transfer This nurse took over patient care this AM. Patient was drowsy and hard to wake. Patient had NG in place and it was hooked up to suction with no return then turned off per verbal order. All vitals WNL. Patient had three loose, black tarry stools. Since then patient has become alert and orientated x 4, easily awakes and follow commands. Pt complained of nausea and suction was turned on and trace amount of dark red blood was noted. Suction turned to low intermittent.
--- NOTE | 2020-07-31 16:52 | PC.NURSE ---
Blood started at 1650
[2020-07-31] MEDS: sodium chloride 0.9% (100 ml) 100 ML 50 ML (17:39)
[2020-07-31] MEDS: lidocaine 2% INJ 20 mL INJECTION (20:38)
[2020-07-31 20:56] LABS: Glucose Point of Care 194 mg/dL (70-110)
[2020-07-31 22:08] LABS: Glucose Point of Care 175 mg/dL (70-110)
[2020-08-01] VITALS (23 sets, daily range): BP systolic 107–171; BP diastolic 44–100; PULSE 60–88; RESP 8–23; TEMP 36.1–37.7; O2SAT 90–100
[2020-08-01] MEDS: piperacillin-tazobactam 3.375 GM in sodium chloride 0.9% (plus) 50 ML IV ×2 (02:48→13:33)
[2020-08-01 03:02] LABS: Basophils # 0.1 10^3/uL (0.0-0.1); Basophils % 0.8 %; Eosinophils % 0.1 %; Hemoglobin 8.2 g/dL (11.5-15.3); Lymphocytes # 1.5 10^3/uL (0.8-4.8); Mean Corpuscular HGB Conc 32.8 g/dL (30.0-36.0); Mean Corpuscular Hemoglobin 28.3 pg (28.0-34.0); Mean Corpuscular Volume 86.2 fL (81-99); Mean Platelet Volume 10.3 fL (7.4-10.4); Monocytes # 1.1 10^3/uL (0.2-0.9); Monocytes % 8.6 %; Neutrophils # 10.32 10^3/uL (1.8-7.7); Neutrophils % 78.1 %; Nucleated Red Blood Cells % 0 %; Platelet Count 199 10^3/cmm (130-400); White Blood Count 13.2 10^3/uL (4.0-10.0)
[2020-08-01 03:27] LABS: Alanine Aminotransferase 8 U/L (0-33); Albumin Level 2.7 g/dL (3.5-5.2); Alkaline Phosphatase 40 IU/L (35-105); Anion Gap 16.2 (5-19); Aspartate Amino Transferase 12 U/L (0-32); Calcium 8.5 mg/dL (8.5-10.5); Carbon Dioxide 20 mmol/L (22-29); Chloride 105 mmol/L (98-107); Globulin 2.5 g/dL (1.3-4.6); Glucose 137 mg/dL (65-115); Osmolality Calculated 317 mOsm/kg (285-295); Phosphorus 4.2 mg/dL (2.5-4.5); Potassium 5.2 mmol/L (3.5-5.1); Sodium 136 mmol/L (136-145); Total Bilirubin 0.5 mg/dL (0.15-1.2); Total Protein 5.2 g/dL (6.6-8.7)
[2020-08-01 03:43] LABS: Blood Urea Nitrogen 104 mg/dL (8-23)
--- NOTE | 2020-08-01 07:52 | PM.PN ---
Subjective Subjective: Interval history: The patient says that she pulled her nasogastric tube out during the night because it was hurting her throat. It has not been reinserted. Vitals/I&O/Wt Last Vital Signs Temp 99.1 F 08/01/20 04:52 Pulse 79 08/01/20 04:52 Resp 14 08/01/20 04:52 BP 131/59 08/01/20 04:52 Pulse Ox 97 08/01/20 04:52 07/31/20 08/01/20 08/01/20 22:59 06:59 14:59 Intake Total 244 / 634 310 / 634 Output Total 1200 / 1875 600 / 1875 Balance -956 / -1241 -290 / -1241 Weight last 48 hrs Weight 130 lb 3.2 oz Physical Exam Narrative: EXAM NARRATIVE: The abdomen remains nontender. She has evidence that she has had some very dark-colored stool with some black stool smeared in her perineal area. Urinary Catheter Management^: Mcfarland: Cath Placed During This Visit: yes Reason for Continuing Indwelling Catheter: Accurate Measurement of Urinary Output in Critically Ill Patients Urinary Catheter Date of Insertion: 07/25/20 Urinary Catheter Time of Insertion: 07:10 Data : 08/01/20 02:30 08/01/20 02:30 A&P Assessment and plan (1) Hematemesis: H. pylori serum antibody was negative. The patient pulled her NG tube out last night. She seems to be much more alert this morning, so I did discuss an EGD with her in further detail. I discussed the dilemma of her needing to possibly be on anticoagulation for her arterial disease versus not being on anticoagulation given her recent upper GI bleeding; an EGD may give us a little better idea of which way to proceed. I discussed an EGD and the rare risks associated with endoscopy. She seems to understand and is agreeable to proceeding this morning. The patient will be kept n.p.o. until at least after the procedure is done this morning. Status: Acute (2) Anemia: I think this is chronic. The patient's hemoglobin was 8.1 yesterday morning so she has dropped roughly a gram since then. She is being transfused today. Status: Acute Attestations Medical Necessity Statement*: See admitting service's notation. 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
--- NOTE | 2020-08-01 08:49 | P.PN_ITS ---
Subjective Subjective: Interval history: seen after EGD. No complaints other than thirst Medications: Reviewed: Yes Vitals/I&O/Wt Last Vital Signs Temp 99.1 F 08/01/20 04:52 Pulse 79 08/01/20 04:52 Resp 14 08/01/20 04:52 BP 131/59 08/01/20 04:52 Pulse Ox 97 08/01/20 04:52 07/31/20 08/01/20 08/01/20 22:59 06:59 14:59 Intake Total 244 / 324 310 / 634 Output Total 1200 / 1275 600 / 1875 Balance -956 / -951 -290 / -1241 Weight last 48 hrs Weight 59.058 kg Physical Exam Const: COMMON NORMALS: no acute distress ORIENTATION/CONSCIOUSNESS: Yes awake Urinary Catheter Management^: Mcfarland: Cath Placed During This Visit: yes Reason for Continuing Indwelling Catheter: Accurate Measurement of Urinary Output in Critically Ill Patients Urinary Catheter Date of Insertion: 07/25/20 Urinary Catheter Time of Insertion: 07:10 Data : 08/01/20 02:30 08/01/20 02:30 A&P Additional A&P Information 1. Acute kidney injury, good urine output. Higher BUN and potassium may be due to GI bleed. Also I/O neg 2. Severe hypertension/flash pulmonary edema, resolved 3. Acute decrease Hb, anemia, Upper GI bleed, Hb improved after transfusion 2u pRBC 4. Chronic hyponatremia, improved, continue NaCl tablets 5. 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
[2020-08-01] MEDS: HYDROmorphone 1 mg/mL INJ 1 mL 0.4 MG IVP (09:24)
--- NOTE | 2020-08-01 09:49 | SUR.OPER ---
EGD SCOPE PERFORMED IN PATIENT ROOM ICU ROOM 10.
--- NOTE | 2020-08-01 11:04 | ANES.PREANE2 ---
Pre-Anesthetic Assessment Pre-Anesthetic Assessment: Height/Weight: Height 1.52 m Weight 59.058 kg Temp Pulse Resp BP Pulse Ox 99.1 F 79 14 131/59 97 08/01/20 04:52 08/01/20 04:52 08/01/20 04:52 08/01/20 04:52 08/01/20 04:52 Preop Diagnosis: Left calcaneal wound debridement Proposed Procedure: Operation Date: 08/01/20 09:00 Proposed Procedures p EGD(Not Applicable) - Jerod Garcia MD Was Beta Joann taken within 24 hours: Yes Social: Social History: No alcohol and No tobacco Exam: Pre-Anes Outpt Exam: alert, oriented x 3, clear to auscultation bilaterally and regular rate & rhythm Airway: Submandibular: WNL Cervical ROM: WNL MP: 2 Dentition: False Pulmonary: Pulmonary: None reported CV/HEM: CV/HEM: Anemia, CAD, HTN and SD : : Chronic renal Insufficiency Hepatic: Hepatic: None reported Metabolic: Metabolic: None reported Musc/skel: Musc/skel: None reported Neuropsych: Neuropsych: None reported Anesthetic Plan: ASA status: 3 Anesthesia: MAC Risk of > 500 ml blood loss (7ml/kg in children): No Meds/Allergies Current Medications: Current Medications Generic Name Dose Route Start Last Admin Trade Name Freq PRN Reason Stop Dose Admin Acetaminophen 650 mg 07/26/20 20:10 07/30/20 11:34 Acetaminophen 32 5 Mg Tablet PO 650 mg Q4H PRN Administration MILD PAIN OR INCR EASE TEMP Amlodipine Besylat e 10 mg 07/30/20 09:00 07/31/20 10:14 Amlodipine 10 Mg Tablet PO 10 mg DAILY KIMBRELY Administration Atorvastatin Calci um 10 mg 07/25/20 21:00 07/31/20 22:11 Atorvastatin 40 Mg Tablet PO Not Given BEDTIME KIMBERLY Gabapentin 200 mg 07/25/20 18:00 07/31/20 17:38 Gabapentin 100 M g Capsule PO 200 mg BID KIMBERLY Administration Hydralazine HCl 25 mg 07/29/20 09:00 07/31/20 17:39 Hydralazine 25 M g Tablet PO 25 mg TID KIMBERLY Administration Hydromorphone HCl 0.4 mg 07/31/20 08:20 08/01/20 09:24 Hydromorphone 1 Mg/Ml Inj 1 Ml IVP 0.4 mg Q12H PRN Administration PAIN Piperacillin Sod/T azobactam 50 mls @ 12.5 mls /hr 08/01/20 02:00 08/01/20 02:48 Sod 3.375 gm/ So dium Chloride IV 12.5 mls/hr Q12H KIMBERLY Administration Protocol Insulin Aspart 0 unit 07/29/20 18:00 07/31/20 22:09 Insulin Aspart 1 00 Unit/1 Ml SUBCUT 4 unit WM&BEDTIME KIMBERLY Administration Protocol Metoprolol Succina te 12.5 mg 07/29/20 09:00 07/31/20 10:15 Metoprolol Succi kenia Er (24 Hr) 25 Mg Tablet PO 12.5 mg DAILY KIMBERLY Administration Ondansetron HCl 4 mg 07/29/20 17:34 07/31/20 08:50 Ondansetron 2 Mg /Ml Sdv 2 Ml IVP 4 mg Q6H PRN Administration NAUSEA AND VOMITI NG Pantoprazole Sodiu m 40 mg 07/31/20 09:00 07/31/20 20:37 Pantoprazole 40 Mg Sdv IV 40 mg BID KIMBERLY Administration Sevelamer Carbonat e 800 mg 07/30/20 08:00 07/31/20 20:38 Sevelamer 800 Mg Tablet PO Not Given TIDWM KIMBERLY Sodium Chloride 1 gm 07/28/20 19:00 07/31/20 17:38 Sodium Chloride 1 Gm Tablet PO 1 gm BID KIMBERLY Administration Tramadol HCl 50 mg 07/30/20 20:18 07/30/20 20:44 Tramadol 50 Mg T ablet PO 50 mg Q6H PRN Administration MODERATE PAIN PFSH Anesthesia PFSH: Medical History CKD (chronic kidney disease) stage 3, GFR 30-59 ml/min Critical lower limb ischemia Diabetes mellitus Peripheral vascular disease Surgical History (Updated 07/31/20 @ 10:16 by Jerod Garcia MD) Surgical history unknown Hysterectomy documented previously, but patient still appears to have her uterus on her CAT scan Family History Other Cancer Rheumatoid arthritis Social History Smoking and tobacco status: never smoked Alcohol intake: never Data Anesthesia CBC & Chem 7: 08/01/20 02:30 08/01/20 02:30 Other Labs: Laboratory Results - last 48 hr 07/27/20 07/30/20 07/30/20 13:45 10:45 10:45 WBC RBC Hgb Hct MCV MCH MCHC RDW Plt Count MPV Neut % (Auto) Lymph % (Auto) [place] % (Auto) Eos % (Auto) Baso % (Auto) Neut # (Auto) Lymph # (Auto) [place] # (Auto) Eos # (Auto) Baso # (Auto) Nucleated RBC % (auto) Nucleated RBCs # Sodium Potassium Chloride Carbon Dioxide Anion Gap BUN Creatinine GFR Calculation Glucose POC Glucose Calculated Osmolality Calcium Phosphorus Total Bilirubin AST ALT Alkaline Phosphatase Total Protein Albumin Globulin Urine Color Yellow Urine Appearance Clear Urine pH 5 Ur Specific [place] 1.015 Urine Protein 1+ H Urine Glucose (UA) Norm Urine Ketones Negative Urine Blood 2+ H Urine Nitrate Negative Urine Bilirubin Neg Urine Urobilinogen Norm Ur Leukocyte Esterase Negative Urine RBC 5-10 H Urine WBC 0-4 H Ur Squamous Epith Cells 40-55 H Amorphous Sediment Not Reportable Urine Bacteria 1+ H Ur Random Sodium 35 Ur Random Potassium 14 Ur Random Chloride 20 Urine Creatinine 59 H. pylori IgG Antibody Blood Type A Negative Rho(D) Type Negative Antibody Screen Negative Crossmatch See Detail 07/30/20 07/30/20 07/30/20 11:10 17:14 20:55 WBC RBC Hgb Hct MCV MCH MCHC RDW Plt Count MPV Neut % (Auto) Lymph % (Auto) [place] % (Auto) Eos % (Auto) Baso % (Auto) Neut # (Auto) Lymph # (Auto) [place] # (Auto) Eos # (Auto) Baso # (Auto) Nucleated RBC % (auto) Nucleated RBCs # Sodium Potassium Chloride Carbon Dioxide Anion Gap BUN Creatinine GFR Calculation Glucose POC Glucose 114 H 127 H 124 H Calculated Osmolality Calcium Phosphorus Total Bilirubin AST ALT Alkaline Phosphatase Total Protein Albumin Globulin Urine Color Urine Appearance Urine pH Ur Specific [place] Urine Protein Urine Glucose (UA) Urine Ketones Urine Blood Urine Nitrate Urine Bilirubin Urine Urobilinogen Ur Leukocyte Esterase Urine RBC Urine WBC Ur Squamous Epith Cells Amorphous Sediment Urine Bacteria Ur Random Sodium Ur Random Potassium Ur Random Chloride Urine Creatinine H. pylori IgG Antibody Blood Type Rho(D) Type Antibody Screen Crossmatch 12/24/20 12/25/20 12/25/20 23:02 04:53 04:53 WBC 10.7 H RBC 2.42 L Hgb 8.6 L 6.9 L Hct 27.3 L 21.2 L MCV 87.6 MCH 28.5 MCHC 32.5 RDW 14.0 Plt Count 251 MPV 10.9 H Neut % (Auto) 81.1 Lymph % (Auto) 10.8 [place] % (Auto) 4.7 Eos % (Auto) 2.1 Baso % (Auto) 0.7 Neut # (Auto) 8.68 H Lymph # (Auto) 1.2 [place] # (Auto) 0.5 Eos # (Auto) 0.2 Baso # (Auto) 0.1 Nucleated RBC % (auto) 0 Nucleated RBCs # 0.0 Sodium 130 L Potassium 5.4 H Chloride 99 Carbon Dioxide 20 L Anion Gap 16.4 BUN 85 H* Creatinine 2.8 H GFR Calculation Not Reportable Glucose 125 H POC Glucose Calculated Osmolality 297 H Calcium 8.4 L Phosphorus 5.0 H Total Bilirubin 0.2 AST 12 ALT 7 Alkaline Phosphatase 49 Total Protein 5.0 L Albumin 2.6 L Globulin 2.4 Urine Color Urine Appearance Urine pH Ur Specific [place] Urine Protein Urine Glucose (UA) Urine Ketones Urine Blood Urine Nitrate Urine Bilirubin Urine Urobilinogen Ur Leukocyte Esterase Urine RBC Urine WBC Ur Squamous Epith Cells Amorphous Sediment Urine Bacteria Ur Random Sodium Ur Random Potassium Ur Random Chloride Urine Creatinine H. pylori IgG Antibody Blood Type Rho(D) Type Antibody Screen Crossmatch 07/31/20 07/31/20 07/31/20 06:36 10:00 10:00 WBC RBC Hgb Hct MCV MCH MCHC RDW Plt Count MPV Neut % (Auto) Lymph % (Auto) [place] % (Auto) Eos % (Auto) Baso % (Auto) Neut # (Auto) Lymph # (Auto) [place] # (Auto) Eos # (Auto) Baso # (Auto) Nucleated RBC % (auto) Nucleated RBCs # Sodium Potassium Chloride Carbon Dioxide Anion Gap BUN Creatinine GFR Calculation Glucose POC Glucose 121 H Calculated Osmolality Calcium Phosphorus Total Bilirubin AST ALT Alkaline Phosphatase Total Protein Albumin Globulin Urine Color Urine Appearance Urine pH Ur Specific [place] Urine Protein Urine Glucose (UA) Urine Ketones Urine Blood Urine Nitrate Urine Bilirubin Urine Urobilinogen Ur Leukocyte Esterase Urine RBC Urine WBC Ur Squamous Epith Cells Amorphous Sediment Urine Bacteria Ur Random Sodium Ur Random Potassium Ur Random Chloride Urine Creatinine H. pylori IgG Antibody Negative Blood Type A Negative Rho(D) Type Negative Antibody Screen Negative Crossmatch See Detail 07/31/20 07/31/20 07/31/20 10:58 18:20 22:03 WBC RBC Hgb Hct MCV MCH MCHC RDW Plt Count MPV Neut % (Auto) Lymph % (Auto) [place] % (Auto) Eos % (Auto) Baso % (Auto) Neut # (Auto) Lymph # (Auto) [place] # (Auto) Eos # (Auto) Baso # (Auto) Nucleated RBC % (auto) Nucleated RBCs # Sodium Potassium Chloride Carbon Dioxide Anion Gap BUN Creatinine GFR Calculation Glucose POC Glucose 144 H 194 H 175 H Calculated Osmolality Calcium Phosphorus Total Bilirubin AST ALT Alkaline Phosphatase Total Protein Albumin Globulin Urine Color Urine Appearance Urine pH Ur Specific [place] Urine Protein Urine Glucose (UA) Urine Ketones Urine Blood Urine Nitrate Urine Bilirubin Urine Urobilinogen Ur Leukocyte Esterase Urine RBC Urine WBC Ur Squamous Epith Cells Amorphous Sediment Urine Bacteria Ur Random Sodium Ur Random Potassium Ur Random Chloride Urine Creatinine H. pylori IgG Antibody Blood Type Rho(D) Type Antibody Screen Crossmatch 08/01/20 08/01/20 02:30 02:30 WBC 13.2 H RBC 2.90 L Hgb 8.2 L Hct 25.0 L MCV 86.2 MCH 28.3 MCHC 32.8 RDW 14.0 Plt Count 199 MPV 10.3 Neut % (Auto) 78.1 Lymph % (Auto) 11.0 [place] % (Auto) 8.6 Eos % (Auto) 0.1 Baso % (Auto) 0.8 Neut # (Auto) 10.32 H Lymph # (Auto) 1.5 [place] # (Auto) 1.1 H Eos # (Auto) 0.0 Baso # (Auto) 0.1 Nucleated RBC % (auto) 0 Nucleated RBCs # 0.0 Sodium 136 Potassium 5.2 H Chloride 105 Carbon Dioxide 20 L Anion Gap 16.2 BUN 104 H* Creatinine 2.8 H GFR Calculation Not Reportable Glucose 137 H POC Glucose Calculated Osmolality 317 H Calcium 8.5 Phosphorus 4.2 Total Bilirubin 0.5 AST 12 ALT 8 Alkaline Phosphatase 40 Total Protein 5.2 L Albumin 2.7 L Globulin 2.5 Urine Color Urine Appearance Urine pH Ur Specific [place] Urine Protein Urine Glucose (UA) Urine Ketones Urine Blood Urine Nitrate Urine Bilirubin Urine Urobilinogen Ur Leukocyte Esterase Urine RBC Urine WBC Ur Squamous Epith Cells Amorphous Sediment Urine Bacteria Ur Random Sodium Ur Random Potassium Ur Random Chloride Urine Creatinine H. pylori IgG Antibody Blood Type Rho(D) Type Antibody Screen Crossmatch Cardiac Studies: No Data to Display
--- NOTE | 2020-08-01 11:05 | ANE.PACU2 ---
Inpatient post-anesthesia follow up: Airway intact: Yes Vital signs: Temperature 99.1 F Pulse Rate [Monito r] 106 Pulse Rate 79 Respiratory Rate 14 Blood Pressure [Le ft Arm] 222/120 Blood Pressure 131/59 Pulse Oximetry 97 Oxygen Delivery Me thod [ Room Air Current Rate & Del yadira] Oxygen Delivery Me thod Nasal Cannula Oxygen Flow Rate 2 Fraction of Inspir ed Oxygen 30 Hydration adequate: Yes Nausea and vomiting: No Pain level: 1 Mental status: Baseline
[2020-08-01] MEDS: gabapentin 100 mg Capsule 200 MG PO ×2 (11:57→18:24)
[2020-08-01] MEDS: metoprolol succinate ER (24 HR) 25 mg Tablet 12.5 MG PO (11:58)
[2020-08-01] MEDS: sodium chloride 1 gm Tablet PO ×2 (11:58→18:24)
--- NOTE | 2020-08-01 12:53 | DCPLANNER ---
IMM completed with pt on 08/01/20 @ [id number]. Copy of rights given to pt.
[2020-08-01] MEDS: pantoprazole 40 mg SDV IV ×2 (13:26→22:16)
--- NOTE | 2020-08-01 14:13 | P.PN_ITS ---
Subjective Subjective: Interval history: In the last 24 h : Patient pulled out her N.G tube as it was irritating her throat, but N.G was re inserted. S/P 2 U PRBC. Has no fresh episode of UGIB.S/P EGD; She is feeling thirsty. Has denied any chest pain, sob, nausea, vomiting, has watery greenish stool. Has remained afebrile. Other vitals have been reviewed. Labs have been reviewed. Medications: Reviewed: Yes Vitals/I&O/Wt Last Vital Signs Temp 99.1 F 08/01/20 04:52 Pulse 79 08/01/20 04:52 Resp 14 08/01/20 04:52 BP 131/59 08/01/20 04:52 Pulse Ox 97 08/01/20 04:52 07/31/20 08/01/20 08/01/20 22:59 06:59 14:59 Intake Total 244 / 324 310 / 634 50 / 50 Output Total 1200 / 1275 600 / 1875 Balance -956 / -951 -290 / -1241 50 / 50 Weight last 48 hrs Weight 59.058 kg Physical Exam Const: COMMON NORMALS: patient oriented x3 HENMT: COMMON NORMALS: normocephalic and atraumatic HEAD & SCALP: normocephalic and atraumatic Chest: CHEST: Yes Symmetrical chest wall rise Resp: COMMON NORMALS: normal respiratory effort and clear to auscultation bilaterally EFFORT & INSPECTION: Yes symmetric chest movement AUSCULTATION: clear to auscultation bilaterally OTHER: 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 Cardio: COMMON NORMALS: regular rate, regular rhythm, S1 normal heart sound present, S2 normal heart sound present, No gallops present (Cardio), No murmurs present (Cardio), No rub (Cardio) and Peripheral pulses 2+ throughout RATE: regular rate RHYTHM: regular rhythm HEART SOUNDS: S1 normal heart sound present and S2 normal heart sound present PERIPHERAL PULSES: Peripheral pulses 2+ throughout OTHER: ESM present in rt 2 ICS. Radiating to carotid GI: COMMON NORMALS: Normal to inspection, nondistended, normoactive bowel sounds present, Soft to palpation, non-tender, No hepatosplenomegaly present and no masses AUSCULTATION: Yes normoactive bowel sounds PALPATION: Yes Soft to palpation and Yes No hepatosplenomegaly present RECTAL EXAM: deferred Extremity: COMMON NORMALS: no clubbing, cyanosis or edema and no pedal edema Neuro: COMMON NORMALS: patient oriented x3 Urinary Catheter Management^: Mcfarland: Cath Placed During This Visit: yes Reason for Continuing Indwelling Catheter: Accurate Measurement of Urinary Output in Critically Ill Patients Urinary Catheter Date of Insertion: 07/25/20 Urinary Catheter Time of Insertion: 07:10 Data : 08/01/20 02:30 08/01/20 02:30 A&P Additional A&P Information 74-year-old female with past medical history of severe peripheral vascular disease, chronic kidney disease, hypertension who presented with acute severe respiratory distress/labored breathing. #UGIB :Likely 2/2 PUD s/p 4Us PRBC : S/P EGD on 08/01 :isolated areas of gastritis in the cardia and duodenitis in the distal bulb. Continue Protonix 40 mg IV BID for now Monitor CBC # Elevated BUN : From G.I Bleed :SCr Has remained stable. #Hyperkalemia : Also from GIB : Monitor Serum K #Acute respiratory failure 2/2 to flash pulomanry edema. Her blood pressure is at 200 on presentation. Fluid overload and malignant hypertension are suspected as triggering factor for her pulmonary edema/CHF. Currently resolved. Extubated and stable. Pulmonary edema/fluid overload. Resolved with diuresis. We appreciate cardiology inputs. Possible infection/sepsis. I do not think that she is in septic shock. Most likely the short episode of hypotension was related to sedation. Leukocytosis is resolved. Possible aspiration pneumonia. : Initilaly on zyvox and zosyn.Was switched to Augmentin to cover for possible aspiration PNA.On 07/31 Post UGIB she was restarted on Zosyn. Cultures have been negative so far. Elevated troponin . 2/2 to Type II M/I : Demand ischemia versus hypertensive emergency with endorgan damage is suspected. Currently deny Chest pain, sob. Continue: Aspirin 81 mg oral daily, M.Succinate :12.5 mg oral daily, Lipitpr 10 mg oral daily Acute kidney injury on top of chronic kidney disease. Appreciate Dr. Khan's input. Additional testing is pending. Discussed with Dr. Cruz We will continue current management and recheck kidney function tomorrow. If improved will discharge her home. Will need outpatient follow-up with nephrology. Chronic Hyponatremia. 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 Mild and stable. : Continue salt tablet 1 gm BID Resolved Anemia probably chronic due to GIB . Received 4 unit of RBCs. Stable. Diabetes. Insulin sliding scale. Hypertension. Stable. Continue current management DVT prophylaxis. Heparin. The plan of care was discussed with multidisciplinary team. Discussed with the patient. Attestations Medical Necessity Statement*: Patient needs to be in hospital for the management OF GIB Coding Level of Care Code Acute Taxation Consultant for Janice Long
--- NOTE | 2020-08-01 15:36 | PM.ACPR ---
Acute Procedures Central Line Placement^: Right Femoral: Time out performed: Yes Patient placed on monitor/pulse ox: Yes MD prep: mask Central line prep: Chlorhexidine scrub Local anesthesia used: lidocaine 2% Ultrasound used for placement: Yes Central line lumen inserted: triple Post procedure: sutured in place, good blood return, all ports aspirated, flushed, capped and sterile dressing applied Patient tolerated procedure: well Complications: none
[2020-08-01 18:23] LABS: Basophils # 0.1 10^3/uL (0.0-0.1); Basophils % 0.8 %; Eosinophils # 0.2 10^3/uL (0.0-0.8); Eosinophils % 1.8 %; Hematocrit 20.9 % (37.0-47.0); Hemoglobin 6.8 g/dL (11.5-15.3); Lymphocytes % 15.3 %; Mean Corpuscular HGB Conc 32.5 g/dL (30.0-36.0); Mean Corpuscular Hemoglobin 28.3 pg (28.0-34.0); Mean Corpuscular Volume 87.1 fL (81-99); Mean Platelet Volume 9.6 fL (7.4-10.4); Monocytes # 1.1 10^3/uL (0.2-0.9); Monocytes % 8.2 %; Neutrophils # 9.53 10^3/uL (1.8-7.7); Neutrophils % 72.8 %; Nucleated Red Blood Cells % 0 %; Platelet Count 178 10^3/cmm (130-400); Red Cell Distribution Width 15.2 % (12.1-15.1); White Blood Count 13.1 10^3/uL (4.0-10.0)
[2020-08-01] MEDS: TRAMadol 50 mg Tablet PO (18:26)
[2020-08-01 18:36] LABS: Glucose Point of Care 133 mg/dL (70-110)
[2020-08-01 18:37] LABS: Glucose Point of Care 188 mg/dL (70-110)
[2020-08-01 18:37] LABS: Glucose Point of Care 179 mg/dL (70-110)
[2020-08-01 18:37] LABS: Glucose Point of Care 104 mg/dL (70-110)
[2020-08-01 21:18] LABS: Glucose Point of Care 126 mg/dL (70-110)
[2020-08-01] MEDS: atorvastatin 40 mg Tablet 10 MG PO (22:16)
[2020-08-02] VITALS (29 sets, daily range): BP systolic 93–160; BP diastolic 51–102; PULSE 43–64; RESP 8–21; TEMP 36.2–37; O2SAT 95–100
[2020-08-02] MEDS: TRAMadol 50 mg Tablet PO ×2 (00:30→19:38)
[2020-08-02] MEDS: piperacillin-tazobactam 3.375 GM in sodium chloride 0.9% (plus) 50 ML IV ×2 (02:51→15:12)
[2020-08-02] MEDS: acetaminophen 325 mg Tablet 650 MG PO ×2 (03:55→21:09)
[2020-08-02 05:23] LABS: Basophils # 0.1 10^3/uL (0.0-0.1); Eosinophils # 0.9 10^3/uL (0.0-0.8); Eosinophils % 5.9 %; Hematocrit 26.6 % (37.0-47.0); Hemoglobin 8.5 g/dL (11.5-15.3); Lymphocytes % 20.2 %; Mean Corpuscular Volume 87.5 fL (81-99); Mean Platelet Volume 10.4 fL (7.4-10.4); Monocytes # 1.1 10^3/uL (0.2-0.9); Monocytes % 7.3 %; Neutrophils # 9.36 10^3/uL (1.8-7.7); Nucleated Red Blood Cells % 0 %; Platelet Count 171 10^3/cmm (130-400); Red Blood Count 3.04 10^6/uL (4.1-5.3); Red Cell Distribution Width 15.4 % (12.1-15.1); White Blood Count 14.6 10^3/uL (4.0-10.0)
[2020-08-02 05:52] LABS: Alanine Aminotransferase 15 U/L (0-33); Albumin Level 2.9 g/dL (3.5-5.2); Alkaline Phosphatase 38 IU/L (35-105); Anion Gap 13.8 (5-19); Aspartate Amino Transferase 24 U/L (0-32); Calcium 8.3 mg/dL (8.5-10.5); Carbon Dioxide 20 mmol/L (22-29); Chloride 107 mmol/L (98-107); Globulin 2.2 g/dL (1.3-4.6); Glucose 105 mg/dL (65-115); Osmolality Calculated 307 mOsm/kg (285-295); Phosphorus 4.1 mg/dL (2.5-4.5); Potassium 4.8 mmol/L (3.5-5.1); Sodium 136 mmol/L (136-145); Total Bilirubin 0.7 mg/dL (0.15-1.2); Total Protein 5.1 g/dL (6.6-8.7)
[2020-08-02 06:09] LABS: Blood Urea Nitrogen 83 mg/dL (8-23)
--- NOTE | 2020-08-02 07:53 | P.PN_ITS ---
Subjective Subjective: Interval history: feeling better. s/p 4 u prbc tx. EGD w/o a clear bleeding source Medications: Reviewed: Yes Medication Review Details: Current Medications Acetaminophen (Acetaminophen 325 Mg Tablet) 650 mg PO Q4H PRN PRN Reason: MILD PAIN OR INCREASE TEMP Last Admin: 08/02/20 03:55 Dose: 650 mg Documented by: Amlodipine Besylate (Amlodipine 10 Mg Tablet) 10 mg PO DAILY [facility] Last Admin: 07/31/20 10:14 Dose: 10 mg Documented by: Atorvastatin Calcium (Atorvastatin 40 Mg Tablet) 10 mg PO BEDTIME KIMBERLY Last Admin: 08/01/20 22:16 Dose: 10 mg Documented by: Dextrose (Dextrose 50% Syringe 50 Ml) 25 ml IVP ONCE PRN; Protocol PRN Reason: hypoglycemia protocol Dextrose (Dextrose 50% Syringe 50 Ml) 50 ml IVP PRN PRN; Protocol PRN Reason: hypoglycemia protocol Gabapentin (Gabapentin 100 Mg Capsule) 200 mg PO BID [facility] Last Admin: 08/01/20 18:24 Dose: 200 mg Documented by: Glucagon (Glucagon 1 Mg/Ml Inj 1 Ml) 1 mg IM ONCE PRN; Protocol PRN Reason: Adult Acute Hypoglycemia Prot. Hydralazine HCl (Hydralazine 25 Mg Tablet) 25 mg PO TID [facility] Last Admin: 07/31/20 17:39 Dose: 25 mg Documented by: Hydromorphone HCl (Hydromorphone 1 Mg/Ml Inj 1 Ml) 0.4 mg IVP Q12H PRN PRN Reason: PAIN Last Admin: 08/01/20 09:24 Dose: 0.4 mg Documented by: Piperacillin Sod/Tazobactam (Sod 3.375 gm/ Sodium Chloride) 50 mls @ 12.5 mls/hr IV Q12H KIMBERLY; Protocol Last Infusion: 08/02/20 07:21 Dose: Infused Documented by: Insulin Aspart (Insulin Aspart 100 Unit/1 Ml) 0 unit SUBCUT WM&BEDTIME [facility]; Protocol Last Admin: 08/01/20 21:06 Dose: Not Given Documented by: Lanolin (Lanolin Oint 7 Gm) 1 applic TOPICAL PRN PRN PRN Reason: DRYNESS Metoprolol Succinate (Metoprolol Succinate Er (24 Hr) 25 Mg Tablet) 12.5 mg PO DAILY [facility] Last Admin: 08/01/20 11:58 Dose: 12.5 mg Documented by: Ondansetron HCl (Ondansetron 2 Mg/Ml Sdv 2 Ml) 4 mg IVP Q6H PRN PRN Reason: NAUSEA AND VOMITING Last Admin: 07/31/20 08:50 Dose: 4 mg Documented by: Pantoprazole Sodium (Pantoprazole 40 Mg Sdv) 40 mg IV BID [facility] Last Admin: 08/01/20 22:16 Dose: 40 mg Documented by: Sodium Chloride (Sodium Chloride 1 Gm Tablet) 1 gm PO BID [facility] Last Admin: 08/01/20 18:24 Dose: 1 gm Documented by: Tramadol HCl (Tramadol 50 Mg Tablet) 50 mg PO Q6H PRN PRN Reason: MODERATE PAIN Last Admin: 08/02/20 00:30 Dose: 50 mg Documented by: Vitals/I&O/Wt Last Vital Signs Temp 98.5 F 08/02/20 02:20 Pulse 53 L 08/02/20 06:00 Resp 9 L 08/02/20 06:00 BP 129/53 08/02/20 06:00 Pulse Ox 100 08/02/20 06:00 08/01/20 08/02/20 08/02/20 22:59 06:59 14:59 Intake Total 890 / 1420 550 / 1970 50 / 50 Output Total 300 / 300 500 / 800 Balance 590 / 1120 50 / 1170 50 / 50 Weight last 48 hrs Weight 62.324 kg Weight 59.058 kg Physical Exam Narrative: EXAM NARRATIVE: comfortable in bed, NARD- nc O2 VS noted- BP improved heent - nc/at, eomi, anicteric neck supple lungs- some b/l crackles heart reg, +HSm, +s1, s2 abd soft, nt, nd, +BS ext dec b/l edema in arms leg DM changes. no leg edema poor DP and PT pulses neuro- neuropathy of legs a,a, o x 3 Urinary Catheter Management^: Mcfarland: Cath Placed During This Visit: yes Reason for Continuing Indwelling Catheter: Accurate Measurement of Urinary Outpu t in Critically Ill Patients Urinary Catheter Date of Insertion: 07/25/20 Urinary Catheter Time of Insertion: 07:10 Data : 08/02/20 04:45 08/02/20 04:45 A&P Additional A&P Information 1. Acute kidney injury, good urine output. Higher BUN and potassium may be due to GI bleed. Also I/O neg -concern for ATN from dropping BP -normal renal artery duplex -upep/ spep -renal fxn is slowly improving -monitor uop and chemistries 2. Severe hypertension/flash pulmonary edema, resolved 3. Acute decrease Hb, anemia, Upper GI bleed, Hb improved after transfusion 4U pRBC -presumed UGI bleed- on protonix 4. Chronic hyponatremia, improved, dec NaCl tablets 5. Hyperphosphatemia, resolved, discontinue renvela for now 6. diastolic dysfunction grade 2 and moderate 7. DM control Attestations Medical Necessity Statement*: per medicine Time Spent in Patient Care: 16 - 35 minutes Coding Level of Care Code Acute Home Performance Consultant for Janice Long
[2020-08-02 07:55] LABS: Glucose Point of Care 106 mg/dL (70-110)
[2020-08-02] MEDS: sodium chloride 1 gm Tablet PO ×2 (08:40→18:07)
[2020-08-02] MEDS: gabapentin 100 mg Capsule 200 MG PO ×2 (08:40→20:14)
[2020-08-02] MEDS: metoprolol succinate ER (24 HR) 25 mg Tablet 12.5 MG PO (08:41)
--- NOTE | 2020-08-02 10:15 | PC.NURSE ---
Removed Urinary catheter. 10 ml removed form balloon. Catheter intact.
[2020-08-02] MEDS: pantoprazole 40 mg SDV IV ×2 (10:37→18:12)
[2020-08-02 11:51] LABS: Glucose Point of Care 113 mg/dL (70-110)
--- NOTE | 2020-08-02 13:10 | P.PN_ITS ---
Subjective Subjective: Interval history: is doing fine. Deny any active complain. She wants to go home. Has remained Afebrile,other vitals and labs have been reviewed. My clinical suspision for B/L Renal artery stenosis was low hence avoided ordering renal artery duplex:As the patient never had recurrent flash pulmnary edema in the presence of HTN emergency.Radiation Protection Technician went ahead and ordered renal artery duplex: Renal artery duplex : Is normal Medications: Reviewed: Yes Vitals/I&O/Wt Last Vital Signs Temp 97.2 F L 08/02/20 11:00 Pulse 51 L 08/02/20 11:00 Resp 14 08/02/20 11:00 BP 146/51 08/02/20 11:00 Pulse Ox 100 08/02/20 11:00 08/01/20 08/02/20 08/02/20 22:59 06:59 14:59 Intake Total 890 / 1420 550 / 1970 290 / 290 Output Total 300 / 300 500 / 800 400 / 400 Balance 590 / 1120 50 / 1170 -110 / -110 Weight last 48 hrs Weight 62.324 kg Weight 59.058 kg Physical Exam Const: COMMON NORMALS: patient oriented x3 HENMT: COMMON NORMALS: atraumatic HEAD & SCALP: atraumatic Chest: CHEST: Yes Symmetrical chest wall rise Resp: COMMON NORMALS: normal respiratory effort and clear to auscultation bilaterally EFFORT & INSPECTION: Yes symmetric chest movement AUSCULTATION: clear to auscultation bilaterally OTHER: Minimal B/L basal crackles present. Cardio: COMMON NORMALS: regular rate, regular rhythm, S1 normal heart sound present, S2 normal heart sound present, No gallops present (Cardio), No murmurs present (Cardio), No rub (Cardio) and Peripheral pulses 2+ throughout RATE: regular rate RHYTHM: regular rhythm HEART SOUNDS: S1 normal heart sound present and S2 normal heart sound present PERIPHERAL PULSES: Peripheral pulses 2+ throughout OTHER: ESM present in rt 2 ICS. Radiating to carotid GI: COMMON NORMALS: Normal to inspection, nondistended, normoactive bowel sounds present, Soft to palpation, non-tender, No hepatosplenomegaly present and no masses AUSCULTATION: Yes normoactive bowel sounds PALPATION: Yes Soft to palpation and Yes No hepatosplenomegaly present RECTAL EXAM: deferred Extremity: COMMON NORMALS: no clubbing, cyanosis or edema and no pedal edema Neuro: COMMON NORMALS: patient oriented x3 Urinary Catheter Management^: Mcfarland: Cath Placed During This Visit: yes Reason for Continuing Indwelling Catheter: Accurate Measurement of Urinary Output in Critically Ill Patients Urinary Catheter Date of Insertion: 07/25/20 Urinary Catheter Time of Insertion: 07:10 Data : 08/02/20 04:45 08/02/20 04:45 A&P Additional A&P Information 74-year-old female with past medical history of severe peripheral vascular disease, chronic kidney disease, hypertension who presented with acute severe respiratory distress/labored breathing. #UGIB :Likely 2/2 PUD s/p 5Us PRBC : S/P EGD on 08/01 :isolated areas of gastritis in the cardia and duodenitis in the distal bulb. Continue Protonix 40 mg IV BID for now Monitor CBC # Elevated BUN : From G.I Bleed :SCr Has remained stable. #Hyperkalemia : Also from GIB : Monitor Serum K #Acute respiratory failure 2/2 to flash pulomanry edema. Her blood pressure is at 200 on presentation. Fluid overload and malignant hypertension are suspected as triggering factor for her pulmonary edema/CHF. Currently resolved. Extub ated and stable. My clinical suspision for B/L Renal artery stenosis was low hence avoided ordering renal artery duplex:As the patient never had recurrent flash pulmnary edema in the presence of HTN emergency.Radiation Protection Technician went ahead and ordered renal artery duplex: Renal artery duplex : Is normal Pulmonary edema/fluid overload. Resolved with diuresis. We appreciate cardiology inputs. Possible infection/sepsis. I do not think that she is in septic shock. Most likely the short episode of hypotension was related to sedation. Leukocytosis is resolved. Possible aspiration pneumonia. : Initilaly on zyvox and zosyn.Was switched to Augmentin to cover for possible aspiration PNA.On 07/31 Post UGIB she was restarted on Zosyn. Cultures have been negative so far. Elevated troponin . 2/2 to Type II M/I : Demand ischemia versus hypertensive emergency with endorgan damage is suspected. Currently deny Chest pain, sob. Continue: Aspirin 81 mg oral daily, M.Succinate :12.5 mg oral daily, Lipitpr 10 mg oral daily Acute kidney injury on top of chronic kidney disease. Appreciate Dr. Khan's input. Additional testing is pending. Discussed with Dr. Cruz We will continue current management and recheck kidney function tomorrow. If improved will discharge her home. Will need outpatient follow-up with nephrology. Chronic Hyponatremia. 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 Mild and stable. : Continue salt tablet 1 gm BID Resolved Anemia probably chronic due to GIB . Received 4 unit of RBCs. Stable. Diabetes. Insulin sliding scale. Hypertension. Stable. Continue current management DVT prophylaxis. Heparin. The plan of care was discussed with multidisciplinary team. Discussed with the patient. Attestations Medical Necessity Statement*: Patient needs to be in hospital for the management of G.I BLEED ,GERARD. Coding Level of Care Code Acute Fisheries Enforcement Officer for Janice Long
[2020-08-02] MEDS: HYDROmorphone 1 mg/mL INJ 1 mL 0.4 MG IVP (14:44)
--- NOTE | 2020-08-02 15:06 | PC.NURSE ---
Patient complains of pain to the right foot. 02/13. Nurse provided prn dilaudid.
[2020-08-02 17:32] LABS: Glucose Point of Care 105 mg/dL (70-110)
[2020-08-02] MEDS: atorvastatin 40 mg Tablet 10 MG PO (20:13)
[2020-08-02 20:28] LABS: Glucose Point of Care 123 mg/dL (70-110)
--- NOTE | 2020-08-02 22:09 | P.PN_ITS ---
Subjective Subjective: Interval history: Patient is doing well today. Wants to go home. Denies symptoms of chest pain or shortness of breath. Creatinine is 2.7 today. Has been producing urine. EGD did not reveal clear active bleeding source. Vitals/I&O/Wt Last Vital Signs Temp 98.6 F 08/02/20 20:00 Pulse 58 L 08/02/20 20:00 Resp 8 L 08/02/20 20:00 BP 151/57 08/02/20 20:00 Pulse Ox 98 08/02/20 20:00 08/02/20 08/02/20 08/02/20 06:59 14:59 22:59 Intake Total 550 / 1970 290 / 290 514.583 / 804.583 Output Total 500 / 800 400 / 400 Balance 50 / 1170 -110 / -110 514.583 / 404.583 Weight last 48 hrs Weight 137 lb 6.4 oz Weight 130 lb 3.2 oz Physical Exam Narrative: EXAM NARRATIVE: Const COMMON NORMALS: patient oriented x3 [facility] COMMON NORMALS: atraumatic HEAD & SCALP: atraumatic Chest CHEST: Yes Symmetrical chest wall rise Resp COMMON NORMALS: normal respiratory effort and clear to auscultation bilaterally EFFORT & INSPECTION: Yes symmetric chest movement AUSCULTATION: clear to auscultation bilaterally OTHER: Minimal B/L basal crackles present. Cardio COMMON NORMALS: regular rate, regular rhythm, S1 normal heart sound present, S2 normal heart sound present, No gallops present (Cardio), No murmurs present (Cardio), No rub (Cardio) and Peripheral pulses 2+ throughout RATE: regular rate RHYTHM: regular rhythm HEART SOUNDS: S1 normal heart sound present and S2 normal heart sound present PERIPHERAL PULSES: Peripheral pulses 2+ throughout OTHER: ESM present in rt 2 ICS. Radiating to carotid GI COMMON NORMALS: Normal to inspection, nondistended, normoactive bowel sounds present, Soft to palpation, non-tender, No hepatosplenomegaly present and no masses AUSCULTATION: Yes normoactive bowel sounds PALPATION: Yes Soft to palpation and Yes No hepatosplenomegaly present RECTAL EXAM: deferred Extremity COMMON NORMALS: no clubbing, cyanosis or edema and no pedal edema Neuro COMMON NORMALS: patient oriented x3 Urinary Catheter Management^: Mcfarland: Cath Placed During This Visit: yes Reason for Continuing Indwelling Catheter: Accurate Measurement of Urinary Output in Critically Ill Patients Urinary Catheter Date of Insertion: 07/25/20 Urinary Catheter Time of Insertion: 07:10 Data : 08/02/20 04:45 08/02/20 04:45 A&P Assessment and plan (1) Acute respiratory failure: In setting of flash pulmonary edema -resolved. Patient has been extubated and is currently on room air. Status: Acute (2) NSTEMI (non-ST elevated myocardial infarction): Likely type II in setting of hypoxia and markedly elevated blood pressure with concentric left ventricular hypertrophy and aortic stenosis causing subendocardial ischemia. Aspirin held secondary to significant upper GI bleed, statin and beta-diogenes -Echocardiogram with preserved left ventricle systolic function with possible hypokinesis of apical inferior and apical septal katz. -Given her extensive PAD as well as wall motion abnormality on her echocar diogram there is a high likelihood that she has coronary artery disease. -I think she would benefit from stress testing for further risk stratification. -Patient is currently chest pain-free and is hesitant to undergo stress testing. -Given her moderate aortic stenosis probably at some point in future she would require coronary angiogram. Likely will need as outpatient , once renal function has normalized. Status: Acute (3) Pulmonary edema: -resolved. Currently on 2 liter O2 -Renal artery doppler normal Status: Acute Qualifiers: Chronicity: acute Qualified Code(s): J81.0 - Acute pulmonary edema (4) Peripheral vascular disease: Plan for peripheral angiogram possibly in next few weeks with Dr. Steele once renal function normalizes Status: Acute (5) Essential hypertension: Status: Acute (6) Hyperlipidemia: Status: Acute Qualifiers: Hyperlipidemia type: unspecified Qualified Code(s): E78.5 - Hyperlipidemia, unspecified (7) Diabetes mellitus: Status: Acute Qualifiers: Diabetes mellitus type: type 2 Diabetes mellitus predatory animal exterminator insulin use: without fci use Diabetes mellitus complication status: with kidney complications Diabetes mellitus complication detail: with chronic kidney disease Additional A&P Information Upper GI bleed: Endoscopy did not reveal active bleeding source. S/p 4 units blood transfusion GERARD on CKD stage III : Creatinine is slowly improving. Today is 2.7. BUN elevated likely from GI bleeding. Nephrology following. Bradycardia: Metoprolol has been downtitrated. Moderate aortic stenosis:Follow as outpatient hyperkalemia: Resolved; agree with holding valsartan Hyponatremia: Follow-up BMP in a.m. Normocytic anemia: Hgb is stable now and is 8.5 today. Thrombocytosis: Resolved Right foot ulcer: Being followed by wound care. Hypoalbuminemia Thank you for allowing me to participate in patient's care. Please feel free to call with questions or concerns Attestations Medical Necessity Statement*: Care expected to cross 2 midnights Coding Level of Care Code Acute Propagator for [facility] Fwd Diagnoses Acute respiratory failure J96.00 NSTEMI (non-ST elevated myocardial infarction) I21.4 Pulmonary edema J81.0 Chronicity: acute Peripheral vascular disease I73.9 Essential hypertension I10 Hyperlipidemia E78.5 Hyperlipidemia type: unspecified Diabetes mellitus E11.9 Diabetes mellitus type: type 2 Diabetes mellitus predatory animal exterminator insulin use: without fci use Diabetes mellitus complication status: with kidney complications Diabetes mellitus complication detail: with chronic kidney disease
[2020-08-03] VITALS (24 sets, daily range): BP systolic 127–189; BP diastolic 53–92; PULSE 51–72; RESP 8–20; TEMP 36.6–37.1; O2SAT 91–100
[2020-08-03] MEDS: TRAMadol 50 mg Tablet PO ×3 (01:43→19:48)
[2020-08-03] MEDS: piperacillin-tazobactam 3.375 GM in sodium chloride 0.9% (plus) 50 ML IV ×2 (01:43→13:08)
[2020-08-03 05:03] LABS: Basophils # 0.1 10^3/uL (0.0-0.1); Basophils % 0.9 %; Eosinophils % 8.2 %; Hematocrit 24.4 % (37.0-47.0); Hemoglobin 7.8 g/dL (11.5-15.3); Lymphocytes # 2.2 10^3/uL (0.8-4.8); Lymphocytes % 19.1 %; Mean Corpuscular Hemoglobin 27.9 pg (28.0-34.0); Mean Corpuscular Volume 87.1 fL (81-99); Mean Platelet Volume 10.6 fL (7.4-10.4); Monocytes # 0.8 10^3/uL (0.2-0.9); Monocytes % 6.9 %; Neutrophils # 7.37 10^3/uL (1.8-7.7); Neutrophils % 63.9 %; Nucleated Red Blood Cells % 0 %; Platelet Count 156 10^3/cmm (130-400); Red Cell Distribution Width 15.9 % (12.1-15.1); White Blood Count 11.5 10^3/uL (4.0-10.0)
[2020-08-03 05:20] LABS: Alanine Aminotransferase 14 U/L (0-33); Albumin Level 2.8 g/dL (3.5-5.2); Alkaline Phosphatase 41 IU/L (35-105); Anion Gap 14.5 (5-19); Aspartate Amino Transferase 19 U/L (0-32); Blood Urea Nitrogen 73 mg/dL (8-23); Calcium 8.3 mg/dL (8.5-10.5); Carbon Dioxide 20 mmol/L (22-29); Chloride 106 mmol/L (98-107); Globulin 2.1 g/dL (1.3-4.6); Glucose 100 mg/dL (65-115); Magnesium 1.9 mg/dL (1.7-2.3); Osmolality Calculated 304 mOsm/kg (285-295); Phosphorus 4.4 mg/dL (2.5-4.5); Potassium 4.5 mmol/L (3.5-5.1); Sodium 136 mmol/L (136-145); Total Bilirubin 0.3 mg/dL (0.15-1.2); Total Protein 4.9 g/dL (6.6-8.7)
[2020-08-03] MEDS: acetaminophen 325 mg Tablet 650 MG PO (06:10)
[2020-08-03] MEDS: capsaicin 0.025% cream 60 gm 1 APPLIC TOPICAL ×2 (06:16→15:42)
[2020-08-03 06:39] LABS: H. Pylori / CLO Test Negative
--- NOTE | 2020-08-03 06:53 | PM.PN ---
Subjective Subjective: Interval history: feels better. no n/v/f/c/serrano/d/sob. Medications: Reviewed: Yes Medication Review Details: Current Medications Acetaminophen (Acetaminophen 325 Mg Tablet) 650 mg PO Q4H PRN PRN Reason: MILD PAIN OR INCREASE TEMP Last Admin: 08/03/20 06:10 Dose: 650 mg Documented by: Amlodipine Besylate (Amlodipine 10 Mg Tablet) 10 mg PO DAILY [facility] Last Admin: 07/31/20 10:14 Dose: 10 mg Documented by: Atorvastatin Calcium (Atorvastatin 40 Mg Tablet) 10 mg PO BEDTIME [facility] Last Admin: 08/02/20 20:13 Dose: 10 mg Documented by: Capsaicin (Capsaicin 0.025% Cream 60 Gm) 1 applic TOPICAL QID PRN PRN Reason: PAIN Last Admin: 08/03/20 06:16 Dose: 1 applic Documented by: Dextrose (Dextrose 50% Syringe 50 Ml) 25 ml IVP ONCE PRN; Protocol PRN Reason: hypoglycemia protocol Dextrose (Dextrose 50% Syringe 50 Ml) 50 ml IVP PRN PRN; Protocol PRN Reason: hypoglycemia protocol Gabapentin (Gabapentin 100 Mg Capsule) 200 mg PO TID [facility] Last Admin: 08/02/20 20:14 Dose: 200 mg Documented by: Glucagon (Glucagon 1 Mg/Ml Inj 1 Ml) 1 mg IM ONCE PRN; Protocol PRN Reason: Adult Acute Hypoglycemia Prot. Hydralazine HCl (Hydralazine 25 Mg Tablet) 25 mg PO TID [facility] Last Admin: 07/31/20 17:39 Dose: 25 mg Documented by: Hydromorphone HCl (Hydromorphone 1 Mg/Ml Inj 1 Ml) 0.4 mg IVP Q12H PRN PRN Reason: PAIN Last Admin: 08/02/20 14:44 Dose: 0.4 mg Documented by: Piperacillin Sod/Tazobactam (Sod 3.375 gm/ Sodium Chloride) 50 mls @ 12.5 mls/hr IV Q12H [facility]; Protocol Last Admin: 08/03/20 01:43 Dose: 12.5 mls/hr Documented by: Insulin Aspart (Insulin Aspart 100 Unit/1 Ml) 0 unit SUBCUT WM&BEDTIME [facility]; Protocol Last Admin: 08/02/20 20:30 Dose: Not Given Documented by: Lanolin (Lanolin Oint 7 Gm) 1 applic TOPICAL PRN PRN PRN Reason: DRYNESS Metoprolol Succinate (Metoprolol Succinate Er (24 Hr) 25 Mg Tablet) 12.5 mg PO DAILY [facility] Last Admin: 08/02/20 08:41 Dose: 12.5 mg Documented by: Ondansetron HCl (Ondansetron 2 Mg/Ml Sdv 2 Ml) 4 mg IVP Q6H PRN PRN Reason: NAUSEA AND VOMITING Last Admin: 07/31/20 08:50 Dose: 4 mg Documented by: Pantoprazole Sodium (Pantoprazole 40 Mg Sdv) 40 mg IV BID [facility] Last Admin: 08/02/20 18:12 Dose: 40 mg Documented by: Sodium Chloride (Sodium Chloride 1 Gm Tablet) 1 gm PO BID [facility] Last Admin: 08/02/20 18:07 Dose: 1 gm Documented by: Tramadol HCl (Tramadol 50 Mg Tablet) 50 mg PO Q6H PRN PRN Reason: MODERATE PAIN Last Admin: 08/03/20 01:43 Dose: 50 mg Documented by: Vitals/I&O/Wt Last Vital Signs Temp 98 F 08/03/20 02:00 Pulse 66 08/03/20 05:00 Resp 14 08/03/20 05:00 BP 147/63 08/03/20 05:00 Pulse Ox 91 08/03/20 05:00 08/02/20 08/02/20 08/03/20 14:59 22:59 06:59 Intake Total 290 / 290 514.583 / 804.583 0 / 804.583 Output Total 400 / 400 Balance -110 / -110 514.583 / 404.583 0 / 404.583 Weight last 48 hrs Weight 62.324 kg Physical Exam Narrative: EXAM NARRATIVE: comfortable in bed, NARD- not using her O2 VS noted- BP stable heent - nc/at, eomi, anicteric neck supple lungs- improved air movement b/l heart reg, +HSm, +s1, s2 abd soft, nt, nd, +BS ext dec b/l edema in arms leg DM changes. no leg edema poor DP and PT pulses neuro- neuropathy of legs a,a, o x 3 Urinary Catheter Management^: Mcfarland: Cath Placed During This Visit: yes Reason for Continuing Indwelling Catheter: Accurate Measurement of Urinary Output in Critically Ill Patients Urinary Catheter Date of Insertion: 07/25/20 Urinary Catheter Time of Insertion: 07:10 Data : 08/03/20 04:00 08/03/20 04:00 A&P Additional A&P Information 1. Acute kidney injury, good urine output. Higher BUN and potassium may be due to GI bleed. Also I/O neg -concern for ATN from dropping BP -normal renal artery duplex -upep/ spep -renal fxn is slowly improving -monitor uop and chemistries -discussed w/ pt-if cr does not improve soon, would get a renal biopsy 2. Severe hypertension/flash pulmonary edema, resolved 3. Acute decrease Hb, anemia, Upper GI bleed, Hb improved after transfusion 4U pRBC -presumed UGI bleed- on protonix -hgb continues to drop SIF negative 4. Chronic hyponatremia, improved, d/c NaCl tablets 5. Hyperphosphatemia, resolved - monitor off of renvela 6. diastolic dysfunction grade 2 and moderate 7. DM control Attestations Medical Necessity Statement*: renita, , diastolic dysfunction, GI bleed Time Spent in Patient Care: 16 - 35 minutes Coding Level of Care Code Acute Marketing Systems Analyst for Janice Long
[2020-08-03] MEDS: metoprolol succinate ER (24 HR) 25 mg Tablet 12.5 MG PO (08:12)
[2020-08-03] MEDS: gabapentin 100 mg Capsule 200 MG PO ×3 (08:12→21:24)
[2020-08-03 08:46] LABS: Glucose Point of Care 108 mg/dL (70-110)
--- NOTE | 2020-08-03 09:39 | PC.CHAP ---
Pastoral Care Encounter/Spiritual Assessment Type of Contact [] Declined wood heel attacher visit [] Patient/Family/Request visit [] Outpatient visit [] Follow-up visit [] Physician referral [] Code/Alert [] Routine visit [] Staff referral [] Actively dying [] Patient sleeping [] Family support [] [] Out of room [] Palliative care [] [] Receiving care in room [] Pre-surgical visit [] Trauma [] Long length of stay [x] ICU visit [] Other: Relational/Emotional Strength [] Patient feels connected with others/family/visitors/staff [] Distress [] Loneliness/isolation [] Abandonment Spirituality of Patient [] Person of Niyah [] Attends Muslim of their Niyah [] Believes in Prayer [] Reads Bible or Gnosticism materials [] There are Spiritual issues to be addressed Microarray Analyst Interventions [x] Prayer [] Active listening [] Non-anxious presence [] Spiritual/emotional support [] Crisis/trauma care [] Spiritual counseling [] Bereavement support [] Provided bereavement packet [] Provided Bible/devotional materials [] Provided toy/stuffed animal, coloring book to patient or family member [] Provided Communion [] Anointing/[place] [] Salvation [x] Completed spiritual assessment [] Other: Impact on Illness or Injury [] Angry [] Fearful [] Anxious [] Often cries [] Exhaustion [] Unable to work [] Unable to attend church [] Unable to walk/stand [] Unable to read [] Unable to drive [] Unable to eat/drink [] Unable to sleep [] Unable to be with family [] Patient intubated [] Other: Summary Time spent with patient
[2020-08-03] MEDS: pantoprazole 40 mg SDV IV ×2 (09:55→17:45)
--- NOTE | 2020-08-03 11:24 | PM.PN ---
Subjective Subjective: Interval history: Over the weekend, she had GIB and received blood transfusion. She wants to go home today. Medications: Reviewed: Yes Medication Review Details: Current Medications Acetaminophen (Acetaminophen 325 Mg Tablet) 650 mg PO Q4H PRN PRN Reason: MILD PAIN OR INCREASE TEMP Last Admin: 08/03/20 06:10 Dose: 650 mg Documented by: Amlodipine Besylate (Amlodipine 10 Mg Tablet) 10 mg PO DAILY [facility] Last Admin: 07/31/20 10:14 Dose: 10 mg Documented by: Atorvastatin Calcium (Atorvastatin 40 Mg Tablet) 10 mg PO BEDTIME [facility] Last Admin: 08/02/20 20:13 Dose: 10 mg Documented by: Capsaicin (Capsaicin 0.025% Cream 60 Gm) 1 applic TOPICAL QID PRN PRN Reason: PAIN Last Admin: 08/03/20 15:42 Dose: 1 applic Documented by: Dextrose (Dextrose 50% Syringe 50 Ml) 25 ml IVP ONCE PRN; Protocol PRN Reason: hypoglycemia protocol Dextrose (Dextrose 50% Syringe 50 Ml) 50 ml IVP PRN PRN; Protocol PRN Reason: hypoglycemia protocol Gabapentin (Gabapentin 100 Mg Capsule) 200 mg PO TID [facility] Last Admin: 08/03/20 15:42 Dose: 200 mg Documented by: Glucagon (Glucagon 1 Mg/Ml Inj 1 Ml) 1 mg IM ONCE PRN; Protocol PRN Reason: Adult Acute Hypoglycemia Prot. Hydralazine HCl (Hydralazine 25 Mg Tablet) 25 mg PO TID [facility] Last Admin: 07/31/20 17:39 Dose: 25 mg Documented by: Hydromorphone HCl (Hydromorphone 1 Mg/Ml Inj 1 Ml) 0.4 mg IVP Q12H PRN PRN Reason: PAIN Last Admin: 08/02/20 14:44 Dose: 0.4 mg Documented by: Piperacillin Sod/Tazobactam (Sod 3.375 gm/ Sodium Chloride) 50 mls @ 12.5 mls/hr IV Q12H [facility]; Protocol Last Infusion: 08/03/20 17:56 Dose: Infused Documented by: Insulin Aspart (Insulin Aspart 100 Unit/1 Ml) 0 unit SUBCUT WM&BEDTIME [facility]; Protocol Last Admin: 08/03/20 17:47 Dose: Not Given Documented by: Lanolin (Lanolin Oint 7 Gm) 1 applic TOPICAL PRN PRN PRN Reason: DRYNESS Metoprolol Succinate (Metoprolol Succinate Er (24 Hr) 25 Mg Tablet) 12.5 mg PO DAILY [facility] Last Admin: 08/03/20 08:12 Dose: 12.5 mg Documented by: Ondansetron HCl (Ondansetron 2 Mg/Ml Sdv 2 Ml) 4 mg IVP Q6H PRN PRN Reason: NAUSEA AND VOMITING Last Admin: 07/31/20 08:50 Dose: 4 mg Documented by: Pantoprazole Sodium (Pantoprazole 40 Mg Sdv) 40 mg IV BID [facility] Last Admin: 08/03/20 17:45 Dose: 40 mg Documented by: Tramadol HCl (Tramadol 50 Mg Tablet) 50 mg PO Q6H PRN PRN Reason: MODERATE PAIN Last Admin: 08/03/20 19:48 Dose: 50 mg Documented by: Vitals/I&O/Wt Last Vital Signs Temp 97.8 F 08/03/20 07:00 Pulse 51 L 08/03/20 10:00 Resp 13 08/03/20 10:00 BP 144/59 08/03/20 10:00 Pulse Ox 96 08/03/20 10:00 08/02/20 08/03/20 08/03/20 22:59 06:59 14:59 Intake Total 514.583 / 804.583 0 / 804.583 240 / 240 Balance 514.583 / 404.583 0 / 404.583 240 / 240 Weight last 48 hrs Weight 137 lb 6.4 oz Physical Exam Narrative: EXAM NARRATIVE: GENERAL: Averagely built and averagely nourished, sitting in bed at the time of evaluation HEENT: No pallor or icterus. NECK: No JVD appreciated. CARDIOVASCULAR SYSTEM: S1-S2 regular. No S3 or S4 present. Grade 3/6 harsh ejection systolic murmur in aortic area with radiation to carotids. RESPIRATORY SYSTEM: Chest clear to auscultation anteriorly. No use of accessory muscles. ABDOMEN: Soft, nontender and nondistended. Normal bowel sounds present. EXTREMITIES: No cyanosis or clubbing. No edema. Monophasic Doppler pulses DP and PT bilaterally. Left hand swollen at IV access site. 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 No focal neurological deficits. SKIN: Normal turgor and temperature. No breakdown, rash or nail changes noted. PSYCH: Normal insight and judgment. Urinary Catheter Management^: Mcfarland: Cath Placed During This Visit: yes Reason for Continuing Indwelling Catheter: Accurate Measurement of Urinary Output in Critically Ill Patients Urinary Catheter Date of Insertion: 07/25/20 Urinary Catheter Time of Insertion: 07:10 Data : 08/03/20 04:00 08/03/20 04:00 A&P Assessment and plan (1) Pulmonary edema: -resolved. Remains on room air. -Agree with doing renal arterial Doppler to assess for renal artery stenosis given concern for flash pulmonary edema and worsening renal function. Status: Acute Qualifiers: Chronicity: acute Qualified Code(s): J81.0 - Acute pulmonary edema (2) NSTEMI (non-ST elevated myocardial infarction): Likely type II in setting of hypoxia and markedly elevated blood pressure with concentric left ventricular hypertrophy and aortic stenosis causing subendocardial ischemia. -continue aspirin, statin and beta-diogenes -Echocardiogram with preserved left ventricle systolic function with possible hypokinesis of apical inferior and apical septal katz. -Given her extensive PAD as well as wall motion abnormality on her echocardiogram there is a high likelihood that she has coronary artery disease. -I think she would benefit from stress testing for further risk stratification. -Patient is currently chest pain-free and is hesitant to undergo stress testing. -Given her moderate aortic stenosis probably at some point in future she would require coronary angiogram. I will defer the decision for stress testing to patient's coconut jelly roller Dr. Steele as an outpatient. Further decision based on patient's clinical status. Status: Acute (3) Peripheral vascular disease: Plan for peripheral angiogram possibly in next few weeks with Dr. Steele once renal function normalizes Status: Acute (4) Essential hypertension: Her elevated blood pressure likely in setting of hypoxia and respiratory distress as it came down to 130s without any antihypertensives. Blood pressure elevated today. Increase amlodipine to 10 mg starting tomorrow. -Continue to monitor her blood pressure closely. started on hydralazine. Status: Acute (5) Hyperlipidemia: Status: Acute Qualifiers: Hyperlipidemia type: unspecified Qualified Code(s): E78.5 - Hyperlipidemia, unspecified (6) Diabetes mellitus: Status: Acute Qualifiers: Diabetes mellitus type: type 2 Diabetes mellitus intermediate accountant insulin use: without intermediate accountant use Diabetes mellitus complication status: with kidney complications Diabetes mellitus complication detail: with chronic kidney disease Additional A&P Information Anemia likely 2/2 UGIB: s/p 5Us PRBC; S/P EGD on 08/01 :isolated areas of gastritis in the cardia and duodenitis in the distal bulb. Continue Protonix 40 mg IV BID; drop in Hb and plan to give another unit of pRBC. GERARD on CKD stage III : BUN trending down and creatinine stabilised. Bradycardia: on metoprolol succinate to 12.5 mg daily. Moderate aortic stenosis: hyperkalemia: Resolved; agree with holding valsartan Hyponatremia: resolved Leukocytosis : Currently being empirically covered with Zosyn for possible sepsis, resolved Thrombocytosis: Resolved Right foot healing ulcer: Being followed by wound care. Hypoalbuminemia Thank you for allowing me to participate in patient's care. Please feel free to call with questions or concerns Attestations Medical Necessity Statement*: As per primary team Time Spent in Patient Care: 16 - 35 minutes (>than 50% of time spent in counselling and/or direct pt care on unit). Coding Level of Care Code Acute Contact Center Representative for Janice Long Diagnoses Pulmonary edema J81.0 Chronicity: acute NSTEMI (non-ST elevated myocardial infarction) I21.4 Peripheral vascular disease I73.9 Essential hypertension I10 Hyperlipidemia E78.5 Hyperlipidemia type: unspecified Diabetes mellitus E11.9 Diabetes mellitus type: type 2 Diabetes mellitus shelter insulin use: without intermediate accountant use Diabetes mellitus complication status: with kidney complications Diabetes mellitus complication detail: with chronic kidney disease
[2020-08-03 12:23] LABS: Glucose Point of Care 154 mg/dL (70-110)
[2020-08-03] MEDS: sodium chloride 0.9% (100 ml) 100 ML 75 ML (13:08)
--- NOTE | 2020-08-03 13:12 | PC.SOCIAL ---
IMM Update Pg. 2 of IMM updated. Copy provided to patient.
--- NOTE | 2020-08-03 15:21 | P.PN_ITS ---
Subjective Subjective: Interval history: She is still having black tarry stool. Hb dropped to 7.8 FROM 8.5 of yesterday. Plan is transfuse 1 u.and continue to monitor CBC. she deny any active complaint. Vitals and labs have been reviewed. Medications: Reviewed: Yes Vitals/I&O/Wt Last Vital Signs Temp 98.7 F 08/03/20 14:00 Pulse 60 08/03/20 14:00 Resp 18 08/03/20 14:00 BP 145/74 08/03/20 14:00 Pulse Ox 96 08/03/20 14:00 08/03/20 08/03/20 08/03/20 06:59 14:59 22:59 Intake Total 50 / 854.583 480 / 480 Balance 50 / 454.583 480 / 480 Weight last 48 hrs Weight 62.324 kg Physical Exam Const: COMMON NORMALS: patient oriented x3 HENMT: COMMON NORMALS: normocephalic and atraumatic HEAD & SCALP: normocephalic and atraumatic Chest: COMMONS NORMALS: normal inspection of the chest and normal palpation of entire chest wall CHEST: Yes Symmetrical chest wall rise Resp: COMMON NORMALS: normal respiratory effort and clear to auscultation bilaterally EFFORT & INSPECTION: Yes symmetric chest movement AUSCULT ATION: clear to auscultation bilaterally OTHER: Minimal B/L basal crackles present. Cardio: COMMON NORMALS: regular rate, regular rhythm, S1 normal heart sound present, S2 normal heart sound present and Peripheral pulses 2+ throughout RATE: regular rate RHYTHM: regular rhythm HEART SOUNDS: S1 normal heart sound present and S2 normal heart sound present PERIPHERAL PULSES: Peripheral pulses 2+ throughout OTHER: ESM in aortic area. GI: COMMON NORMALS: Normal to inspection, nondistended, normoactive bowel sounds present, Soft to palpation, non-tender, No hepatosplenomegaly present and no masses AUSCULTATION: Yes normoactive bowel sounds PALPATION: Yes Soft to palpation and Yes No hepatosplenomegaly present RECTAL EXAM: deferred Extremity: COMMON NORMALS: no pedal edema Neuro: COMMON NORMALS: patient oriented x3 Urinary Catheter Management^: Mcfarland: Cath Placed During This Visit: yes Reason for Continuing Indwelling Catheter: Accurate Measurement of Urinary Output in Critically Ill Patients Urinary Catheter Date of Insertion: 07/25/20 Urinary Catheter Time of Insertion: 07:10 Data : 08/03/20 04:00 08/03/20 04:00 A&P Additional A&P Information 74-year-old female with past medical history of severe peripheral vascular disease, chronic kidney disease, hypertension who presented with acute severe respiratory distress/labored breathing. #UGIB :Likely 2/2 PUD s/p 6Us PRBC : S/P EGD on 08/01 :isolated areas of gastritis in the cardia and duodenitis in the distal bulb. Given the presence of moderate As possibility of Heyde's syndrome can be considered. Continue Protonix 40 mg IV BID for now Monitor CBC # Elevated BUN : From G.I Bleed :Trending down . SCr Has remained stable. #Hyperkalemia : Resolved . Monitor Serum K #Acute respiratory failure 2/2 to flash pulomanry edema. Her blood pressure is at 200 on presentation. Fluid overload and malignant hypertension are suspected as triggering factor for her pulmonary edema/CHF. Currently resolved. Extubated and stable. My clinical suspision for B/L Renal artery stenosis was low hence avoided ordering renal artery duplex:As the patient never had recurrent flash pulmnary edema in the presence of HTN emergency.Psychology Assistant went ahead and ordered renal artery duplex: Renal artery duplex : Is normal Pulmonary edema/fluid overload. Resolved with diuresis. We appreciate cardiology inputs. Possible infection/sepsis. I do not think that she is in septic shock. Most likely the short episode of hypotension was related to sedation. Leukocytosis is resolved. Possible aspiration pneumonia. : Initilaly on zyvox and zosyn.Was switched to Augmentin to cover for possible aspiration PNA.On 07/31 Post UGIB she was restarted on Zosyn. Cultures have been negative so far. Elevated troponin . 2/2 to Type II M/I : Demand ischemia versus hypertensive emergency with endorgan damage is suspected. Currently deny Chest pain, sob. Continue: Aspirin 81 mg oral daily, M.Succinate :12.5 mg oral daily, Lipitpr 10 mg oral daily Acute kidney injury on top of chronic kidney disease. Appreciate Dr. Khan's input. Additional testing is pending. Discussed with Dr. Cruz We will continue current management and recheck kidney function tomorrow. If improved will discharge her home. Will need outpatient follow-up with nephrology. Chronic Hyponatremia. 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 Mi ld and stable. : Continue salt tablet 1 gm BID Resolved Anemia probably chronic due to GIB . Received 4 unit of RBCs. Stable. Diabetes. Insulin sliding scale. Hypertension. Stable. Continue current management DVT prophylaxis. Heparin. The plan of care was discussed with multidisciplinary team. Discussed with the patient. Attestations Medical Necessity Statement*: Patient needs to be in hospital for the Monitoring Dropping Hb 2/2 to GIB Coding Level of Care Code Acute Kaitara [place] for Janice Long
[2020-08-03 16:38] LABS: CREATININE, 24 HOUR URINE 0.99 g/24 h (0.50-2.15); PROTEIN, TOTAL, 24 HR UR 928 mg/24 h (<150); Protein/Creatinine Ratio 0.935 (< OR = 0.114); Protein/Creatinine Ratio 935 mg/g creat (< OR = 114)
[2020-08-03 18:09] LABS: Glucose Point of Care 97 mg/dL (70-110)
[2020-08-03] MEDS: atorvastatin 40 mg Tablet 10 MG PO (21:23)
[2020-08-03 21:39] LABS: ANCA Interp Negative (Negative)
[2020-08-03 22:23] LABS: Glucose Point of Care 117 mg/dL (70-110)
[2020-08-04] VITALS (15 sets, daily range): BP systolic 101–187; BP diastolic 59–97; PULSE 59–81; RESP 13–25; TEMP 36.6–37.3; O2SAT 88–99
[2020-08-04] MEDS: piperacillin-tazobactam 3.375 GM in sodium chloride 0.9% (plus) 50 ML IV ×2 (02:39→15:09)
[2020-08-04] MEDS: hyDRALAzine 25 mg Tablet PO ×3 (05:07→21:33)
[2020-08-04 05:53] LABS: Basophils # 0.1 10^3/uL (0.0-0.1); Basophils % 0.9 %; Eosinophils # 1.1 10^3/uL (0.0-0.8); Hematocrit 30.5 % (37.0-47.0); Hemoglobin 9.9 g/dL (11.5-15.3); Lymphocytes # 1.3 10^3/uL (0.8-4.8); Lymphocytes % 8.7 %; Mean Corpuscular HGB Conc 32.5 g/dL (30.0-36.0); Mean Corpuscular Hemoglobin 28.2 pg (28.0-34.0); Mean Corpuscular Volume 86.9 fL (81-99); Monocytes % 6.4 %; Neutrophils # 11.48 10^3/uL (1.8-7.7); Neutrophils % 76.3 %; Nucleated Red Blood Cells % 0 %; Platelet Count 204 10^3/cmm (130-400); Red Blood Count 3.51 10^6/uL (4.1-5.3); Red Cell Distribution Width 15.1 % (12.1-15.1); White Blood Count 15.1 10^3/uL (4.0-10.0)
[2020-08-04 06:13] LABS: Alanine Aminotransferase 13 U/L (0-33); Albumin Level 2.9 g/dL (3.5-5.2); Alkaline Phosphatase 49 IU/L (35-105); Anion Gap 14.6 (5-19); Aspartate Amino Transferase 18 U/L (0-32); Blood Urea Nitrogen 56 mg/dL (8-23); Calcium 8.4 mg/dL (8.5-10.5); Carbon Dioxide 20 mmol/L (22-29); Chloride 106 mmol/L (98-107); Globulin 2.9 g/dL (1.3-4.6); Glucose 113 mg/dL (65-115); Magnesium 1.8 mg/dL (1.7-2.3); Osmolality Calculated 298 mOsm/kg (285-295); Phosphorus 4.2 mg/dL (2.5-4.5); Potassium 4.6 mmol/L (3.5-5.1); Sodium 136 mmol/L (136-145); Total Bilirubin 0.6 mg/dL (0.15-1.2); Total Protein 5.8 g/dL (6.6-8.7)
[2020-08-04] MEDS: TRAMadol 50 mg Tablet PO ×2 (07:18→13:27)
[2020-08-04 07:32] LABS: Glucose Point of Care 105 mg/dL (70-110)
--- NOTE | 2020-08-04 07:55 | PM.PN ---
Subjective Subjective: Interval history: feels better. she does not know what color her stools are. she feels better after receiving 1 u prbc yesterdya. dneis SOB, wants to go home. no n/v/f/c/ cp/serrano/d Medications: Reviewed: Yes Medication Review Details: Current Medications Acetaminophen (Acetaminophen 325 Mg Tablet) 650 mg PO Q4H PRN PRN Reason: MILD PAIN OR INCREASE TEMP Last Admin: 08/03/20 06:10 Dose: 650 mg Documented by: Amlodipine Besylate (Amlodipine 10 Mg Tablet) 10 mg PO DAILY [facility] Last Admin: 07/31/20 10:14 Dose: 10 mg Documented by: Atorvastatin Calcium (Atorvastatin 40 Mg Tablet) 10 mg PO BEDTIME [facility] Last Admin: 08/03/20 21:23 Dose: 10 mg Documented by: Capsaicin (Capsaicin 0.025% Cream 60 Gm) 1 applic TOPICAL QID PRN PRN Reason: PAIN Last Admin: 08/03/20 15:42 Dose: 1 applic Documented by: Dextrose (Dextrose 50% Syringe 50 Ml) 25 ml IVP ONCE PRN; Protocol PRN Reason: hypoglycemia protocol Dextrose (Dextrose 50% Syringe 50 Ml) 50 ml IVP PRN PRN; Protocol PRN Reason: hypoglycemia protocol Gabapentin (Gabapentin 100 Mg Capsule) 200 mg PO TID [facility] Last Admin: 08/03/20 21:24 Dose: 200 mg Documented by: Glucagon (Glucagon 1 Mg/Ml Inj 1 Ml) 1 mg IM ONCE PRN; Protocol PRN Reason: Adult Acute Hypoglycemia Prot. Hydralazine HCl (Hydralazine 25 Mg Tablet) 25 mg PO TID [facility] Last Admin: 08/04/20 05:07 Dose: 25 mg Documented by: Hydromorphone HCl (Hydromorphone 1 Mg/Ml Inj 1 Ml) 0.4 mg IVP Q12H PRN PRN Reason: PAIN Last Admin: 08/02/20 14:44 Dose: 0.4 mg Documented by: Piperacillin Sod/Tazobactam (Sod 3.375 gm/ Sodium Chloride) 50 mls @ 12.5 mls/hr IV Q12H [facility]; Protocol Last Infusion: 08/04/20 07:22 Dose: Infused Documented by: Insulin Aspart (Insulin Aspart 100 Unit/1 Ml) 0 unit SUBCUT WM&BEDTIME [facility]; Protocol Last Admin: 08/03/20 21:27 Dose: Not Given Documented by: Lanolin (Lanolin Oint 7 Gm) 1 applic TOPICAL PRN PRN PRN Reason: DRYNESS Metoprolol Succinate (Metoprolol Succinate Er (24 Hr) 25 Mg Tablet) 12.5 mg PO DAILY [facility] Last Admin: 08/03/20 08:12 Dose: 12.5 mg Documented by: Ondansetron HCl (Ondansetron 2 Mg/Ml Sdv 2 Ml) 4 mg IVP Q6H PRN PRN Reason: NAUSEA AND VOMITING Last Admin: 07/31/20 08:50 Dose: 4 mg Documented by: Pantoprazole Sodium (Pantoprazole 40 Mg Sdv) 40 mg IV BID [facility] Last Admin: 08/03/20 17:45 Dose: 40 mg Documented by: Tramadol HCl (Tramadol 50 Mg Tablet) 50 mg PO Q6H PRN PRN Reason: MODERATE PAIN Last Admin: 08/04/20 07:18 Dose: 50 mg Documented by: Vitals/I&O/Wt Last Vital Signs Temp 98.0 F 08/04/20 03:00 Pulse 59 L 08/04/20 06:00 Resp 13 08/04/20 05:00 BP 187/73 08/04/20 05:00 Pulse Ox 98 08/04/20 05:00 08/03/20 08/04/20 08/04/20 22:59 06:59 14:59 Intake Total 1460 / 1940 240 / 2180 50 / 50 Output Total 1000 / 1000 500 / 500 Balance 460 / 940 240 / 1180 -450 / -450 Physical Exam Narrative: EXAM NARRATIVE: comfortable in bed, NARD- VS noted- BP elevated heent - nc/at, eomi, anicteric neck supple lungs- CTA b/l heart reg, +HSm, +s1, s2 abd soft, nt, nd, +BS ext dec b/l edema in arms leg DM changes. no leg edema poor DP and PT pulses neuro- neuropathy of legs a,a, o x 3 Urinary Catheter Management^: Mcfarland: Cath Placed During This Visit: yes Reason for Continuing Indwelling Catheter: Accurate Measurement of Urinary Output in Critically Ill Patients Urinary Catheter Date of Insertion: 07/25/20 Urinary Catheter Time of Insertion: 07:10 Data : 08/04/20 05:11 08/04/20 05:11 A&P Additional A&P Information 1. Acute kidney injury, good urine output. Higher BUN and potassium may be due to GI bleed. Also I/O neg -concern for ATN from dropping BP -normal renal artery duplex -upep/ spep -renal fxn is slowly improving -monitor uop and chemistries -discussed w/ pt-if cr does not improve soon, would get a renal biopsy -cr down form 2.7- 2.5 2. Severe hypertension/flash pulmonary edema, resolved neg renal artery duplex -avoid ariane-i/ arb w/ GERARD monitor on norvasc, hydralazine, and low dose metoprolol. can inc hydralazine as needed 3. Acute decrease Hb, anemia, Upper GI bleed -s/p 6U pRBC -presumed UGI bleed- on protonix -monitor hgb SIF negative 4. Chronic hyponatremia, improved, d/c NaCl tablets 5. Hyperphosphatemia, resolved - monitor off of renvela 6. diastolic dysfunction grade 2 and moderate 7. DM control Attestations Medical Necessity Statement*: gi bleed, htn, gerard Time Spent in Patient Care: 16 - 35 minutes Coding Level of Care Code Acute [employer] Member for Janice Long
[2020-08-04 09:08] LABS: ALBUMIN 70 %; ALPHA-1-GLOBULINS 2 %; ALPHA-2-GLOBULINS 8 %; BETA GLOBULINS 12 %; GAMMA GLOBULINS 9 %
[2020-08-04] MEDS: gabapentin 100 mg Capsule 200 MG PO ×3 (10:13→21:32)
[2020-08-04] MEDS: metoprolol succinate ER (24 HR) 25 mg Tablet 12.5 MG PO (10:13)
[2020-08-04] MEDS: amlodipine 10 mg Tablet PO (10:13)
[2020-08-04] MEDS: pantoprazole 40 mg SDV IV ×2 (10:14→17:09)
[2020-08-04 11:08] LABS: Glucose Point of Care 178 mg/dL (70-110)
--- NOTE | 2020-08-04 13:04 | P.PN_ITS ---
Subjective Subjective: Interval history: She is doing well. No chest pain or shortness of breath. She would like to go home. Medications: Reviewed: Yes Medication Review Details: Current Medications Acetaminophen (Acetaminophen 325 Mg Tablet) 650 mg PO Q4H PRN PRN Reason: MILD PAIN OR INCREASE TEMP Last Admin: 08/03/20 06:10 Dose: 650 mg Documented by: Amlodipine Besylate (Amlodipine 10 Mg Tablet) 10 mg PO DAILY [facility] Last Admin: 08/04/20 10:13 Dose: 10 mg Documented by: Atorvastatin Calcium (Atorvastatin 40 Mg Tablet) 10 mg PO BEDTIME [facility] Last Admin: 08/03/20 21:23 Dose: 10 mg Documented by: Capsaicin (Capsaicin 0.025% Cream 60 Gm) 1 applic TOPICAL QID PRN PRN Reason: PAIN Last Admin: 08/03/20 15:42 Dose: 1 applic Documented by: Dextrose (Dextrose 50% Syringe 50 Ml) 25 ml IVP ONCE PRN; Protocol PRN Reason: hypoglycemia protocol Dextrose (Dextrose 50% Syringe 50 Ml) 50 ml IVP PRN PRN; Protocol PRN Reason: hypoglycemia protocol Gabapentin (Gabapentin 100 Mg Capsule) 200 mg PO TID [facility] Last Admin: 08/04/20 10:13 Dose: 200 mg Documented by: Glucagon (Glucagon 1 Mg/Ml Inj 1 Ml) 1 mg IM ONCE PRN; Protocol PRN Reason: Adult Acute Hypoglycemia Prot. Hydralazine HCl (Hydralazine 25 Mg Tablet) 25 mg PO TID [facility] Last Admin: 08/04/20 05:07 Dose: 25 mg Documented by: Piperacillin Sod/Tazobactam (Sod 3.375 gm/ Sodium Chloride) 50 mls @ 12.5 mls/ hr IV Q12H [facility]; Protocol Last Infusion: 08/04/20 07:22 Dose: Infused Documented by: Insulin Aspart (Insulin Aspart 100 Unit/1 Ml) 0 unit SUBCUT WM&BEDTIME [facility]; Protocol Last Admin: 08/04/20 11:43 Dose: 2 unit Documented by: Lanolin (Lanolin Oint 7 Gm) 1 applic TOPICAL PRN PRN PRN Reason: DRYNESS Metoprolol Succinate (Metoprolol Succinate Er (24 Hr) 25 Mg Tablet) 12.5 mg PO DAILY [facility] Last Admin: 08/04/20 10:13 Dose: 12.5 mg Documented by: Ondansetron HCl (Ondansetron 2 Mg/Ml Sdv 2 Ml) 4 mg IVP Q6H PRN PRN Reason: NAUSEA AND VOMITING Last Admin: 07/31/20 08:50 Dose: 4 mg Documented by: Pantoprazole Sodium (Pantoprazole 40 Mg Sdv) 40 mg IV BID [facility] Last Admin: 08/04/20 10:14 Dose: 40 mg Documented by: Tramadol HCl (Tramadol 50 Mg Tablet) 50 mg PO Q6H PRN PRN Reason: MODERATE PAIN Last Admin: 08/04/20 07:18 Dose: 50 mg Documented by: Vitals/I&O/Wt Last Vital Signs Temp 99.1 F 08/04/20 12:00 Pulse 65 08/04/20 12:00 Resp 20 H 08/04/20 12:00 BP 173/71 08/04/20 12:00 Pulse Ox 93 08/04/20 12:00 08/03/20 08/04/20 08/04/20 22:59 06:59 14:59 Intake Total 1460 / 1940 240 / 2180 530 / 530 Output Total 1000 / 1000 500 / 500 Balance 460 / 940 240 / 1180 Physical Exam Narrative: EXAM NARRATIVE: GENERAL: Averagely built and averagely nourished, sitting in bed at the time of evaluation HEENT: No pallor or icterus. NECK: No JVD appreciated. CARDIOVASCULAR SYSTEM: S1-S2 regular. No S3 or S4 present. Grade 3/6 harsh ejection systolic murmur in aortic area with radiation to carotids. RESPIRATORY SYSTEM: Chest clear to auscultation anteriorly. No use of accessory muscles. ABDOMEN: Soft, nontender and nondistended. Normal bowel sounds present. EXTREMITIES: No cyanosis or clubbing. No edema. Monophasic Doppler pulses DP and PT bilaterally. MANAGER BUSINESS PLANNING: Patient is alert oriented ?3. No focal neurological deficits. SKIN: Normal turgor and temperature. PSYCH: Normal insight and judgment. Urinary Catheter Management^: Mcfarland: Cath Placed During This Visit: yes Reason for Continuing Indwelling Catheter: Accurate Measurement of Urinary Output in Critically Ill Patients Urinary Catheter Date of Insertion: 07/25/20 Urinary Catheter Time of Insertion: 07:10 Data : 08/04/20 05:11 08/04/20 05:11 A&P Assessment and plan (1) Pulmonary edema: -resolved. Remains on room air. Status: Acute Qualifiers: Chronicity: acute Qualified Code(s): J81.0 - Acute pulmonary edema (2) NSTEMI (non-ST elevated myocardial infarction): Likely type II in setting of hypoxia and markedly elevated blood pressure with concentric left ventricular hypertrophy and aortic stenosis causing subendocardial ischemia. -continue aspirin, statin and beta-diogenes -Echocardiogram with preserved left ventricle systolic function with possible hypokinesis of apical inferior and apical septal katz. -Given her extensive PAD as well as wall motion abnormality on her echocardiogram there is a high likelihood that she has coronary artery disease. -Patient is currently chest pain-free and is hesitant to undergo stress testing. -Given her moderate aortic stenosis probably at some point in future she would require coronary angiogram. I will defer the decision for stress testing to patient's lead fire protection engineer Dr. Steele as an outpatient. Further decision based on patient's clinical status. Status: Acute (3) Peripheral vascular disease: Plan for peripheral angiogram possibly in next few weeks with Dr. Steele once renal function normalizes Status: Acute (4) Essential hypertension: Blood pressure elevated today. Increase hydralazine to 50 mg am and 25 mg in afternoon and evening -Continue to monitor her blood pressure closely. 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 Continue Protonix 40 mg IV BID; Hemoglobin stable today. GERARD on CKD stage III : BUN trending down and creatinine stabilised. Bradycardia: on metoprolol succinate to 12.5 mg daily. Moderate aortic stenosis: Right foot healing ulcer: Being followed by wound care. hyperkalemia: Resolved Hyponatremia: resolved Leukocytosis : Currently being empirically covered with Zosyn. Thrombocytosis: Resolved Hypoalbuminemia Thank you for allowing me to participate in patient's care. Please feel free to call with questions or concerns Attestations Medical Necessity Statement*: As per primary team Time Spent in Patient Care: 16 - 35 minutes (>than 50% of time spent in counselling and/or direct pt care on unit) . Coding Level of Care Code Acute Tomato Pulper Operator for Desting Fwd Diagnoses Pulmonary edema J81.0 Chronicity: acute NSTEMI (non-ST elevated myocardial infarction) I21.4 Peripheral vascular disease I73.9 Essential hypertension I10 Hyperlipidemia E78.5 Hyperlipidemia type: unspecified Diabetes mellitus E11.9 Diabetes mellitus type: type 2 Diabetes mellitus residential insulin use: without petroleum terminal plant operator use Diabetes mellitus complication status: with kidney complications Diabetes mellitus complication detail: with chronic kidney disease
--- NOTE | 2020-08-04 13:15 | PC.NURSE ---
Patient to CSU from ICU at this time. Patient denies any CP or SOB. Reports pain at 3/10 in right foot. VSS. See physical assessment. Patient resting in bed. Tramadol to be administered. Nurse to continue to monitor.
[2020-08-04 16:18] LABS: Glucose Point of Care 109 mg/dL (70-110)
--- NOTE | 2020-08-04 16:24 | PM.PN ---
Subjective Subjective: Interval history: Patient had 2-3 episodes of watery black tary stool last night. She was transfused 1 u PRBC Yesterday. Over all she is complaining of generalized weakness from protracted and complicated hospital stay. Her vitals have remained stable. Labs have been viewed. Medications: Reviewed: Yes Medication Review Details: Current Medications Acetaminophen (Acetaminophen 325 Mg Tablet) 650 mg PO Q4H PRN PRN Reason: MILD PAIN OR INCREASE TEMP Last Admin: 08/03/20 06:10 Dose: 650 mg Documented by: Amlodipine Besylate (Amlodipine 10 Mg Tablet) 10 mg PO DAILY [facility] Last Admin: 08/04/20 10:13 Dose: 10 mg Documented by: Atorvastatin Calcium (Atorvastatin 40 Mg Tablet) 10 mg PO BEDTIME [facility] Last Admin: 08/03/20 21:23 Dose: 10 mg Documented by: Capsaicin (Capsaicin 0.025% Cream 60 Gm) 1 applic TOPICAL QID PRN PRN Reason: PAIN Last Admin: 08/03/20 15:42 Dose: 1 applic Documented by: Dextrose (Dextrose 50% Syringe 50 Ml) 25 ml IVP ONCE PRN; Protocol PRN Reason: hypoglycemia protocol Dextrose (Dextrose 50% Syringe 50 Ml) 50 ml IVP PRN PRN; Protocol PRN Reason: hypoglycemia protocol Gabapentin (Gabapentin 100 Mg Capsule) 200 mg PO TID [facility] Last Admin: 08/04/20 10:13 Dose: 200 mg Documented by: Glucagon (Glucagon 1 Mg/Ml Inj 1 Ml) 1 mg IM ONCE PRN; Protocol PRN Reason: Adult Acute Hypoglycemia Prot. Hydralazine HCl (Hydralazine 25 Mg Tablet) 25 mg PO TID [facility] Last Admin: 08/04/20 05:07 Dose: 25 mg Documented by: Piperacillin Sod/Tazobactam (Sod 3.375 gm/ Sodium Chloride) 50 mls @ 12.5 mls/hr IV Q12H [facility]; Protocol Last Infusion: 08/04/20 07:22 Dose: Infused Documented by: Insulin Aspart (Insulin Aspart 100 Unit/1 Ml) 0 unit SUBCUT WM&BEDTIME [facility]; Protocol Last Admin: 08/04/20 11:43 Dose: 2 unit Documented by: Lanolin (Lanolin Oint 7 Gm) 1 applic TOPICAL PRN PRN PRN Reason: DRYNESS Metoprolol Succinate (Metoprolol Succinate Er (24 Hr) 25 Mg Tablet) 12.5 mg PO DAILY [facility] Last Admin: 08/04/20 10:13 Dose: 12.5 mg Documented by: Ondansetron HCl (Ondansetron 2 Mg/Ml Sdv 2 Ml) 4 mg IVP Q6H PRN PRN Reason: NAUSEA AND VOMITING Last Admin: 07/31/20 08:50 Dose: 4 mg Documented by: Pantoprazole Sodium (Pantoprazole 40 Mg Sdv) 40 mg IV BID [facility] Last Admin: 08/04/20 10:14 Dose: 40 mg Documented by: Tramadol HCl (Tramadol 50 Mg Tablet) 50 mg PO Q6H PRN PRN Reason: MODERATE PAIN Last Admin: 08/04/20 07:18 Dose: 50 mg Documented by: Vitals/I&O/Wt Last Vital Signs Temp 99.2 F 08/04/20 15:10 Pulse 71 08/04/20 15:10 Resp 24 H 08/04/20 15:10 BP 158/78 08/04/20 15:10 Pulse Ox 94 08/04/20 15:10 08/04/20 08/04/20 08/04/20 06:59 14:59 22:59 Intake Total 240 / 2180 580 / 580 Output Total 500 / 500 Balance 240 / 1180 80 / 80 Physical Exam Const: COMMON NORMALS: patient oriented x3 HENMT: COMMON NORMALS: normocephalic and atraumatic HEAD & SCALP: normocephalic and atraumatic Chest: COMMONS NORMALS: normal inspection of the chest and normal palpation of entire chest wall CHEST: Yes Symmetrical chest wall rise Resp: COMMON NORMALS: normal respiratory effort and clear to auscultation bilaterally EFFORT & INSPECTION: Yes symmetric chest movement AUSCULTATION: clear to auscultation bilaterally OTHER: B/L Basal crackles present in both lung porter Cardio: COMMON NORMALS: regular rate, regular rhythm, S1 normal heart sound present, S2 normal heart sound present, No gallops present (Cardio), No murmurs present (Cardio), No rub (Cardio) and Peripheral pulses 2+ throughout RATE: regular rate RHYTHM: regular rhythm HEART SOUNDS: S1 normal heart sound present and S2 normal heart sound present PERIPHERAL PULSES: Peripheral pulses 2+ throughout OTHER: ESM in aortic area. GI: COMMON NORMALS: Normal to inspection, nondistended, normoactive bowel sounds present, Soft to palpation, non-tender, No hepatosplenomegaly present and no masses AUSCULTATION: Yes normoactive bowel sounds PALPATION: Yes Soft to palpation and Yes No hepatosplenomegaly present RECTAL EXAM: deferred Extremity: COMMON NORMALS: no clubbing, cyanosis or edema and no pedal edema Neuro: COMMON NORMALS: patient oriented x3 Urinary Catheter Management^: Mcfarland: Cath Placed During This Visit: yes Reason for Continuing Indwelling Catheter: Accurate Measurement of Urinary Output in Critically Ill Patients Urinary Catheter Date of Insertion: 07/25/20 Urinary Catheter Time of Insertion: 07:10 Data : 08/04/20 05:11 08/04/20 05:11 A&P Additional A&P Information 74-year-old female with past medical history of severe peripheral vascular disease, chronic kidney disease, hypertension who presented with acute severe respiratory distress/labored breathing. #UGIB :Likely 2/2 PUD s/p 7Us PRBC : S/P EGD on 08/01 :isolated areas of gastritis in the cardia and duodenitis in the distal bulb. Given the presence of moderate As possibility of Heyde's syndrome can be considered. Continue Protonix 40 mg IV BID for now.Will dc her on oral protonix 40 mg po daily for 3 months. Monitor CBC #Elevated BUN : From G.I Bleed :Trending down . SCr Has remained stable. #Hyperkalemia : Resolved . Monitor Serum K #Acute respiratory failure 2/2 to flash pulomanry edema. Her blood pressure is at 200 on presentation. Fluid overload and malignant hypertension are suspected as triggering factor for her pulmonary edema/CHF. Currently resolved. Extubated and stable. My clinical suspision for B/L Renal artery stenosis was low hence avoided ordering renal artery duplex:As the patient never had recurrent flash pulmnary edema in the presence of HTN emergency.[employer]er [employer] went ahead and ordered renal artery duplex: Renal artery duplex : Is normal Pulmonary edema/fluid overload. Resolved with diuresis. We appreciate cardiology inputs. Possible infection/sepsis. I do not think that she is in septic shock. Most likely the short episode of hypotension was related to sedation. Leukocytosis is resolved. #Possible aspiration pneumonia. : Initilaly on zyvox and zosyn.Was switched to Augmentin to cover for possible aspiration PNA.On 07/31 Post UGIB she was restarted on Zosyn. Cultures have been negative so far. #Elevated troponin . 2/2 to Type II M/I : Demand ischemia versus hypertensive emergency with endorgan damage is suspected. Currently deny Chest pain, sob. Continue: Aspirin 81 mg oral daily, M.Succinate :12.5 mg oral daily, Lipitpr 10 mg oral daily #Acute kidney injury on top of chronic kidney disease. Appreciate Dr. Khan's input. Per Nephrology : If SCR do not improve quickly then patient will likely need outpatient renal biopsy #Chronic Hyponatremia. 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 Mild and stable. : Initially on salt tablet 1 gm BID.Has been DC now Resolved #Anemia probably chronic due to GIB . #Diabetes. Insulin sliding scale. #Hypertension. Currently on 50 mg am and 25 mg in afternoon and evening. Amlodipine 10 mg oral daily, #DVT prophylaxis:SCDs The plan of care was discussed with multidisciplinary team. Discussed with the patient. Attestations Medical Necessity Statement*: Patient needs to be in hospital for the monitoring of GIB Coding Level of Care Code Acute Television Cabinet Finisher for Janice Long
[2020-08-04] MEDS: atorvastatin 40 mg Tablet 10 MG PO (21:33)
[2020-08-04 21:35] LABS: Glucose Point of Care 135 mg/dL (70-110)
[2020-08-05] MEDS: TRAMadol 50 mg Tablet PO ×2 (01:01→06:25)
[2020-08-05] MEDS: piperacillin-tazobactam 3.375 GM in sodium chloride 0.9% (plus) 50 ML IV (01:35)
[2020-08-05 03:45] VITALS: BP 180/75; PULSE 72; RESP 20; TEMP 36.6; O2SAT 94
[2020-08-05 04:50] LABS: Basophils # 0.1 10^3/uL (0.0-0.1); Basophils % 0.6 %; Eosinophils # 1.2 10^3/uL (0.0-0.8); Eosinophils % 8.4 %; Hematocrit 32.7 % (37.0-47.0); Hemoglobin 10.7 g/dL (11.5-15.3); Lymphocytes # 1.6 10^3/uL (0.8-4.8); Lymphocytes % 11.2 %; Mean Corpuscular HGB Conc 32.7 g/dL (30.0-36.0); Mean Corpuscular Volume 88.6 fL (81-99); Mean Platelet Volume 10.8 fL (7.4-10.4); Monocytes # 0.9 10^3/uL (0.2-0.9); Monocytes % 6.4 %; Neutrophils # 10.42 10^3/uL (1.8-7.7); Neutrophils % 72.7 %; Nucleated Red Blood Cells % 0 %; Platelet Count 225 10^3/cmm (130-400); Red Blood Count 3.69 10^6/uL (4.1-5.3); Red Cell Distribution Width 15.1 % (12.1-15.1); White Blood Count 14.3 10^3/uL (4.0-10.0)
[2020-08-05 05:12] LABS: Alanine Aminotransferase 12 U/L (0-33); Albumin Level 3.1 g/dL (3.5-5.2); Alkaline Phosphatase 52 IU/L (35-105); Anion Gap 14.4 (5-19); Aspartate Amino Transferase 15 U/L (0-32); Blood Urea Nitrogen 47 mg/dL (8-23); Calcium 8.8 mg/dL (8.5-10.5); Carbon Dioxide 21 mmol/L (22-29); Chloride 104 mmol/L (98-107); Globulin 2.9 g/dL (1.3-4.6); Glucose 105 mg/dL (65-115); Magnesium 1.9 mg/dL (1.7-2.3); Osmolality Calculated 293 mOsm/kg (285-295); Phosphorus 3.9 mg/dL (2.5-4.5); Potassium 4.4 mmol/L (3.5-5.1); Sodium 135 mmol/L (136-145); Total Bilirubin 0.7 mg/dL (0.15-1.2)
--- NOTE | 2020-08-05 07:15 | PM.PN ---
Subjective Subjective: Interval history: feels better. walking. wants to go home. states she is eating. no sob. she does not know what color stool is. denies bleeding. Medications: Reviewed: Yes Medication Review Details: Current Medications Acetaminophen (Acetaminophen 325 Mg Tablet) 650 mg PO Q4H PRN PRN Reason: MILD PAIN OR INCREASE TEMP Last Admin: 08/03/20 06:10 Dose: 650 mg Documented by: Amlodipine Besylate (Amlodipine 10 Mg Tablet) 10 mg PO DAILY [facility] Last Admin: 08/04/20 10:13 Dose: 10 mg Documented by: Atorvastatin Calcium (Atorvastatin 40 Mg Tablet) 10 mg PO BEDTIME [facility] Last Admin: 08/04/20 21:33 Dose: 10 mg Documented by: Capsaicin (Capsaicin 0.025% Cream 60 Gm) 1 applic TOPICAL QID PRN PRN Reason: PAIN Last Admin: 08/03/20 15:42 Dose: 1 applic Documented by: Dextrose (Dextrose 50% Syringe 50 Ml) 25 ml IVP ONCE PRN; Protocol PRN Reason: hypoglycemia protocol Dextrose (Dextrose 50% Syringe 50 Ml) 50 ml IVP PRN PRN; Protocol PRN Reason: hypoglycemia protocol Gabapentin (Gabapentin 100 Mg Capsule) 200 mg PO TID [facility] Last Admin: 08/04/20 21:32 Dose: 200 mg Documented by: Glucagon (Glucagon 1 Mg/Ml Inj 1 Ml) 1 mg IM ONCE PRN; Protocol PRN Reason: Adult Acute Hypoglycemia Prot. Hydralazine HCl (Hydralazine 25 Mg Tablet) 25 mg PO Q12H [facility] Last Admin: 08/04/20 21:33 Dose: 25 mg Documented by: Hydralazine HCl (Hydralazine 50 Mg Tablet) 50 mg PO 1400 [facility] Piperacillin Sod/Tazobactam (Sod 3.375 gm/ Sodium Chloride) 50 mls @ 12.5 mls/hr IV Q12H [facility]; Protocol Last Infusion: 08/05/20 05:39 Dose: Infused Documented by: Insulin Aspart (Insulin Aspart 100 Unit/1 Ml) 0 unit SUBCUT WM&BEDTIME [facility]; Protocol Last Admin: 08/04/20 21:25 Dose: Not Given Documented by: Lanolin (Lanolin Oint 7 Gm) 1 applic TOPICAL PRN PRN PRN Reason: DRYNESS Metoprolol Succinate (Metoprolol Succinate Er (24 Hr) 25 Mg Tablet) 12.5 mg PO DAILY [facility] Last Admin: 12/29/20 10:13 Dose: 12.5 mg Documented by: Ondansetron HCl (Ondansetron 2 Mg/Ml Sdv 2 Ml) 4 mg IVP Q6H PRN PRN Reason: NAUSEA AND VOMITING Last Admin: 07/31/20 08:50 Dose: 4 mg Documented by: Pantoprazole Sodium (Pantoprazole 40 Mg Sdv) 40 mg IV BID [facility] Last Admin: 08/04/20 17:09 Dose: 40 mg Documented by: Tramadol HCl (Tramadol 50 Mg Tablet) 50 mg PO Q6H PRN PRN Reason: MODERATE PAIN Last Admin: 08/05/20 06:25 Dose: 50 mg Documented by: Vitals/I&O/Wt Last Vital Signs Temp 97.8 F 08/05/20 03:45 Pulse 72 08/05/20 03:45 Resp 20 H 08/05/20 03:45 BP 180/75 08/05/20 03:45 Pulse Ox 94 08/05/20 03:45 08/04/20 08/05/20 08/05/20 22:59 06:59 14:59 Intake Total 650 / 1230 410 / 1640 Balance 650 / 730 410 / 1140 Physical Exam Narrative: EXAM NARRATIVE: comfortable in bed, NARD- VS noted- BP elevated heent - nc/at, eomi, anicteric neck supple lungs- wheezes, crackles b/l heart reg, +HSm, +s1, s2 abd soft, nt, nd, +BS ext -some b/l edema in arms and legs leg DM changes. poor DP and PT pulses neuro- neuropathy of legs a,a, o x 3 Urinary Catheter Management^: Mcfarland: Cath Placed During This Visit: yes Reason for Continuing Indwelling Catheter: Accurate Measurement of Urinary Output in Critically Ill Patients Urinary Catheter Date of Insertion: 07/25/20 Urinary Catheter Time of Insertion: 07:10 Data : 08/05/20 03:39 08/05/20 03:39 A&P Additional A&P Information 1. Acute kidney injury, good urine output. Higher BUN and potassium may be due to GI bleed. Also I/O neg -concern for ATN from dropping BP -normal renal artery duplex -upep/ spep -renal fxn is slowly improving -monitor uop and chemistries -cr down form 2.7- 1.9 2. Severe hypertension/flash pulmonary edema, resolved neg renal artery duplex -avoid ariane-i/ arb w/ GERARD monitor on norvasc 10 d, hydralazine, and low dose metoprolol. will inc hydralazine - once cr normalizes, can add ARB -may need lasix 3. Acute decrease Hb, anemia, Upper GI bleed -s/p 6U pRBC -presumed UGI bleed- on protonix -monitor hgb -stable SIF negative 4. Chronic hyponatremia, as htn- fluid restrict- attempt to keep off of nacl tabs 5. Hyperphosphatemia, resolved - monitor off of renvela 6. diastolic dysfunction grade 2 and moderate 7. DM control Attestations Medical Necessity Statement*: per hospitalist Time Spent in Patient Care: 16 - 35 minutes Coding Level of Care Code Acute Stripe Marker for Desting Mercedes
[2020-08-05] MEDS: metoprolol succinate ER (24 HR) 25 mg Tablet 12.5 MG PO (08:39)
[2020-08-05] MEDS: hyDRALAzine 25 mg Tablet 50 MG PO (08:39)
[2020-08-05] MEDS: gabapentin 100 mg Capsule 200 MG PO (08:40)
[2020-08-05] MEDS: amlodipine 10 mg Tablet PO (08:40)
[2020-08-05] MEDS: pantoprazole 40 mg SDV IV (08:41)
[2020-08-05 09:57] VITALS: BP 132/89; PULSE 75; RESP 23; O2SAT 92
--- NOTE | 2020-08-05 10:41 | PM.DCS ---
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 Steele overnight from to 24 July before peripheral angiogram hydration.She has nonhealing right foot calcaneus wound managed by Dr. Spain in the wound care patient has history of severely depressed JUAN on the right side and diffuse disease of SFA along with below very sluggish flow with possible nearly 1 vessel it was not also well-visualized during last angiogram. Patient baseline creatinine is less than 1.4 however it was 1.7 before angiogram. In spite of hydration, her creatinine continued to be at 1.7 and hence the procedure was postponed and she was discharged home.On the day of admission She presented with shortness of breath, tachypnea and ended up getting intubated because of increased work of breathing.Her admission diagnosis was hypertensive emergency with flash pulmonary edema. She was intubated in the ER for severe respiratory distress. Later upon stabilization of her respiratory status during the hospital stay she was extubated at the time of discharge she was saturating well on room, and there was no need for home oxygen. She was also managed for possible sepsis due to aspiration pneumonia versus hypotension related to sedative use during intubation.Initially she was empirically kept on Zyvox and Zosyn was later switched to Augmentin but Zosyn was restarted as she had developed upper GI bleed (had some episodes of emesis which included some blood clots and coffee-ground appearing material ) and had worsening leukocytosis. For her upper GI bleed see underwent EGD which showed some isolated areas of gastritis in the cardia and duodenitis in the distal bulb. The patient also had some linear erosions in the stomach that were almost certainly from the presence of the nasogastric tube.Patient was transfused 7 units PRBC during the entire hospital stay due to drop in hemoglobin. At the time of discharge her hemoglobin was stable.Aspirin has been kept on hold.It has been left upto her pressure testing technician to decide when to resume.She is being discharged on protonix 40 mg po daily.She will follow up with for further management. Hospital course was also complicated by NSTEMI type II, GERARD on CKD. At the time of discharge her serum creatinine has been trending (SCR on the day of the discharge was 1.9, Patient baseline creatinine is less than 1.4 ). At one point of time during the hospital renal was considering renal biopsy as an outpatient if the serum creatinine did not show consistent improvement.She was also managed for other comorbid conditions during the hospital stay. At the time of discharge she was in stable condition.She is being discharged home to follow-up with her PCP as well as cardiology as an outpatient. Pertinent imaging studies: CT abdomen and pelvis: Was done as a part of GI bleed work-up. No acute abdominal findings.Bilateral pleural effusions with superimposed atelectasis although bilateral basilar pneumonia cannot be excluded. US renal BI:07/28 Right kidney: 9.3 cm x 5.7 cm x 6.5 cm. Normal size and echogenicity. No mass or hydronephrosis. Left kidney: 10.3 cm x 5.5 cm x 6.0 cm. Normal size kidney are normal echogenicity. Central pelvic cyst measures 1.0 x 1.0 x 1.2 cm. No evidence for renal insufficiency or obstruction. 2D echo: 07/26/20 1. Small left ventricular cavity size. Moderate concentric left ventricular hypertrophy. Normal left ventricle systolic function. Left ventricular ejection fraction estimated at 55%. There is possible mild hypokinesis of apical inferior and apical septal katz. grade II diastolic dysfunction, moderately elevated filling pressures. 2. Normal right ventricular size and systolic function. 3. Moderately increased left atrial size. 4. Mild mitral and tricuspid valve regurgitation. 5. Moderate aortic valve stenosis, mean gradient 17.1 mmHg, JOSE 1.1 cm squared (LVOT= 18 mm). Indexed aortic valve area of 0.7 cm squared/m squared. Dimensionless valve index of 0.46. Mild aortic valve regurgitation. 6. Right pleural effusion. 7. No prior similar studies to compare. Cultures : Blood culture : negative , sputum culture: Negative Physical Exam Const: COMMON NORMALS: patient oriented x3 HENMT: COMMON NORMALS: normocephalic and atraumatic HEAD & SCALP: normocephalic and atraumatic Resp: COMMON NORMALS: normal respiratory effort and clear to auscultation bilaterally EFFORT & INSPECTION: Yes symmetric chest movement AUSCULTATION: clear to auscultation bilaterally Cardio: COMMON NORMALS: regular rate, regular rhythm, S1 normal heart sound present, S2 normal heart sound present, No gallops present (Cardio), No murmurs present (Cardio) and No rub (Cardio) RATE: regular rate RHYTHM: regular rhythm HEART SOUNDS: S1 normal heart sound present and S2 normal heart sound present OTHER: Grade 3 ejection systolic murmur present in the aortic area. GI: COMMON NORMALS: Normal to inspection, nondistended, normoactive bowel sounds present, Soft to palpation, non-tender, No hepatosplenomegaly present and no masses AUSCULTATION: Yes normoactive bowel sounds PALPATION: Yes Soft to palpation and Yes No hepatosplenomegaly present RECTAL EXAM: deferred Extremity: COMMON NORMALS: no clubbing, cyanosis or edema and no pedal edema Neuro: COMMON NORMALS: patient oriented x3 Urinary Catheter Management^: Mcfarland: Cath Placed During This Visit: yes Reason for Continuing Indwelling Catheter: Accurate Measurement of Urinary Output in Critically Ill Patients Urinary Catheter Date of Insertion: 07/25/20 Urinary Catheter Time of Insertion: 07:10 Discharge Data Data Completed and Pending: Completed Studies During Hospitalization Category Date Time Status CT abdomen pelvis wo con [id number] Stat Cat Scan 07/30/20 22:22 Completed CXRP [XR chest 1V portable [id number]] S tat Exams 07/30/20 22:15 Completed XR chest 1V aung ble [id number] Routine Exams 07/26/20 18:00 Completed XR chest 1V aung ble [id number] Stat Exams 07/25/20 06:37 Completed XR chest 1V aung ble [id number] Urgent Exams 07/25/20 20:12 Completed CV echo complete* [id number] Routine Ultrasound 07/26/20 16:45 Completed CV renal doppler [id number] Routine Ultrasound 07/28/20 06:00 Completed US renal BI* [id number] Routine Ultrasound 07/28/20 06:00 Completed Pending at discharge Category Date Time Status GIL Screen w/ Ref meño Routine Lab 07/28/20 11:19 Results Comprehensive Met abolic Panel AM LA BS Lab 08/07/20 04:00 Ordered Comprehensive Met abolic Panel AM LA BS Lab 08/08/20 04:00 Ordered Comprehensive Met abolic Panel AM LA BS Lab 08/06/20 04:00 Ordered Immunochemical Fe rosie OCB Routine Lab 07/27/20 09:03 Uncollected Phosphorus AM LAB S Lab 08/07/20 04:00 Ordered Phosphorus AM LAB S Lab 08/08/20 04:00 Ordered Phosphorus AM LAB S Lab 08/06/20 04:00 Ordered Protein Electroph oresis, 24 HR Rout ine Lab 07/27/20 15:30 Results Labs from last 24 hours 08/05/20 08/05/20 08/04/20 03:39 03:39 21:15 WBC 14.3 H RBC 3.69 L Hgb 10.7 L Hct 32.7 L MCV 88.6 MCH 29.0 MCHC 32.7 RDW 15.1 Plt Count 225 MPV 10.8 H Neut % (Auto) 72.7 Lymph % (Auto) 11.2 Davis % (Auto) 6.4 Eos % (Auto) 8.4 Baso % (Auto) 0.6 Neut # (Auto) 10.42 H Lymph # (Auto) 1.6 Davis # (Auto) 0.9 Eos # (Auto) 1.2 H Baso # (Auto) 0.1 Nucleated RBC % (a uto) 0 Nucleated RBCs # 0.0 Sodium 135 L Potassium 4.4 Chloride 104 Carbon Dioxide 21 L Anion Gap 14.4 BUN 47 H Creatinine 1.9 H GFR Calculation Not Reportable Glucose 105 POC Glucose 135 H Calculated Osmolal ity 293 Calcium 8.8 Phosphorus 3.9 Magnesium 1.9 Total Bilirubin 0.7 AST 15 ALT 12 Alkaline Phosphata se 52 Total Protein 6.0 L Albumin 3.1 L Globulin 2.9 08/04/20 08/04/20 16:03 11:05 WBC RBC Hgb Hct MCV MCH MCHC RDW Plt Count MPV Neut % (Auto) Lymph % (Auto) Davis % (Auto) Eos % (Auto) Baso % (Auto) Neut # (Auto) Lymph # (Auto) Davis # (Auto) Eos # (Auto) Baso # (Auto) Nucleated RBC % (a uto) Nucleated RBCs # Sodium Potassium Chloride Carbon Dioxide Anion Gap BUN Creatinine GFR Calculation Glucose POC Glucose 109 178 H Calculated Osmolal ity Calcium Phosphorus Magnesium Total Bilirubin AST ALT Alkaline Phosphata se Total Protein Albumin Globulin Vitals: Last Vital Signs Temp 97.8 F 08/05/20 03:45 Pulse 75 08/05/20 09:57 Resp 23 H 08/05/20 09:57 BP 132/89 08/05/20 09:57 Pulse Ox 92 08/05/20 09:57 Discharge Plan Discharge Patient Disposition: Home Condition: Stable Prescriptions: New amlodipine 10 mg tablet 10 mg PO DAILY Qty: 30 RF: 0 hydralazine 50 mg tablet 50 mg PO TID Qty: 90 RF: 0 Protonix 40 mg tablet,delayed release (DR/EC) 40 mg PO DAILY Qty: 30 RF: 3 Continued atorvastatin 10 mg tablet 10 mg PO BEDTIME RF: 0 gabapentin 100 mg capsule 200 mg PO BID RF: 0 carvedilol [Coreg] 3.125 mg tablet 3.125 mg PO BID Qty: 60 RF: 3 Held valsartan 160 mg tablet 160 mg PO DAILY RF: 0 Hold Instructions: Resume on 08/12/20. Discontinued aspirin [Adult Aspirin Regimen] 81 mg tablet,delayed release (DR/EC) 81 mg PO BEDTIME RF: 0 amlodipine 5 mg tablet 5 mg PO DAILY Qty: 30 RF: 4 Discharge Orders: Discharge Order (Routine); Ordered 08/05/20 Ordered By: Alejandro Rai Referrals: Carlos Winters MD [Physician] - 6 Weeks Jin Steele MD [Physician] - 2 weeks (You have a follow up appointment with Dr. Fajardo on August 26 at 3:00 pm If you have any concerns about your health before your appointment or are unable to keep this appointment please call Heart care services.) Crystal Olivia MD [Primary Care Provider] - 1 week (You have an appointment with Dr. Olviia on August 12 at 2:20 pm. If you can not keep this appointment please call the clinic to rescedule. ) Discharge Diet: Low Salt Discharge Activity: Increase activity as tolerated Patient Instructions: GI Discharge Instructions Activity Restrictions/Additional Instructions: She will follow up with her PCP in 1 week with repeat BMP to access her Kidney function. Discharge Attestations Time Spent in Discharge Care*: greater than 30 min Specific Discharge Activities: educating patient, educating and/or supporting family/caregiver, discussing with pcp/other providers, discussing with upper caser/social workers/dc planners, documenting/other paperwork and evaluating patient/reviewing data Status at Discharge: Cognitive status at discharge: cognitively intact, Behavioral status at discharge: cooperative, Functional status at discharge: independent ambulation Overall status at discharge: patient is back to baseline Quality Metrics Clinical Quality Measures During this hospital stay, did patient experience: None Coding Level of Care Code Acute Packaging Sales Representative for g Fwd Exam Detailed Diagnoses Peripheral vascular disease I73.9 GERARD (acute kidney injury) N17.9 Essential hypertension I10 Diabetes mellitus E11.9 Diabetes mellitus complication detail: with chronic kidney disease Diabetes mellitus complication status: with kidney complications Diabetes mellitus intermediate insulin use: without intermediate use Diabetes mellitus type: type 2 Anemia D64.9 CKD (chronic kidney disease) stage 3, GFR 30-59 ml/min N18.30
[2020-08-05 11:59] LABS: Glucose Point of Care 177 mg/dL (70-110)
[2020-08-05 12:00] VITALS: BP 157/68; PULSE 71; RESP 21; TEMP 37; O2SAT 94
--- NOTE | 2020-08-05 13:24 | PC.NURSE ---
patient discharge home at this time self and family care patient provided with discharge instructions patient and acute care certified nursing assistant verbalized understanding patient assisted to wheel chair and taken out by staff to private vehicle. patient alert and in stable condition.
--- NOTE | 2020-08-05 15:07 | PM.PN ---
Subjective Subjective: Interval history: Doing well. Medications: Reviewed: Yes Vitals/I&O/Wt Last Vital Signs Temp 98.6 F 08/05/20 12:00 Pulse 71 08/05/20 12:00 Resp 21 H 08/05/20 12:00 BP 157/68 08/05/20 12:00 Pulse Ox 94 08/05/20 12:00 08/05/20 08/05/20 08/05/20 06:59 14:59 22:59 Intake Total 410 / 1640 960 / 960 Balance 410 / 1140 960 / 960 Physical Exam Narrative: EXAM NARRATIVE: GENERAL: Averagely built and averagely nourished, sitting in bed at the time of evaluation HEENT: No pallor or icterus. NECK: No JVD appreciated. CARDIOVASCULAR SYSTEM: S1-S2 regular. No S3 or S4 present. Grade 3/6 harsh ejection systolic murmur in aortic area with radiation to carotids. RESPIRATORY SYSTEM: Chest clear to auscultation except at bilateral bases. No use of accessory muscles. ABDOMEN: Soft, nontender and nondistended. Normal bowel sounds present. EXTREMITIES: No cyanosis or clubbing. No edema. Monophasic Doppler pulses DP and PT bilaterally. [employer]ISTS: Patient is alert oriented ?3. No focal neurological deficits. SKIN: Normal turgor and temperature. PSYCH: Normal insight and judgment. Urinary Catheter Management^: Mcfarland: Cath Placed During This Visit: yes Reason for Continuing Indwelling Catheter: Accurate Measurement of Urinary Output in Critically Ill Patients Urinary Catheter Date of Insertion: 07/25/20 Urinary Catheter Time of Insertion: 07:10 Data : 08/05/20 03:39 08/05/20 03:39 A&P Assessment and plan (1) Pulmonary edema: -resolved. Remains on room air. Status: Acute Qualifiers: Chronicity: acute Qualified Code(s): J81.0 - Acute pulmonary edema (2) NSTEMI (non-ST elevated myocardial infarction): Likely type II in setting of hypoxia and markedly elevated blood pressure with concentric left ventricular hypertrophy and aortic stenosis causing subendocardial ischemia. -continue aspirin, statin and beta-diogenes -Echocardiogram with preserved left ventricle systolic function with possible hypokinesis of apical inferior and apical septal katz. -Given her extensive PAD as well as wall motion abnormality on her echocardiogram there is a high likelihood that she has coronary artery disease. -Patient is currently chest pain-free and is hesitant to undergo stress testing. -Given her moderate aortic stenosis probably at some point in future she would require coronary angiogram. I will defer the decision for stress testing to patient's local area network systems adminstrator Dr. Steele as an outpatient. Further decision based on patient's clinical status. -Follow-up BMP and CBC in 1 week with primary care physician. -Follow-up with Dr. Steele in 2 to 3 weeks. Status: Acute (3) Peripheral vascular disease: Plan for peripheral angiogram possibly in next few weeks with Dr. Steele once renal function normalizes Status: Acute (4) Essential hypertension: Blood pressure elevated today. Increase hydralazine to 50 mg am and 25 mg in afternoon and evening -Continue to monitor her blood pressure closely. Status: Acute (5) Hyperlipidemia: Status: Acute Qualifiers: Hyperlipidemia type: unspecified Qualified Code(s): E78.5 - Hyperlipidemia, unspecified (6) Diabetes mellitus: Status: Acute Qualifiers: Diabetes mellitus type: type 2 Diabetes mellitus superintendent terminal insulin use: without retirement use Diabetes mellitus complication status: with kidney complications Diabetes mellitus complication detail: with chronic kidney disease Additional A&P Information Anemia likely / UGIB: s/p 7Us PRBC; S/P EGD on 08/01 :isolated areas of gastritis in the cardia and duodenitis in the distal bulb. Continue Protonix. Hemoglobin improved today. GERARD on CKD stage III : creatinine improved. Bradycardia: on metoprolol succinate to 12.5 mg daily. Moderate aortic stenosis: Right foot healing ulcer: Being followed by wound care. hyperkalemia: Resolved Hyponatremia: resolved Leukocytosis : Currently being empirically covered with Zosyn. Thrombocytosis: Resolved Hypoalbuminemia Thank you for allowing me to participate in patient's care. Please feel free to call with questions or concerns Attestations Medical Necessity Statement*: Stable to be discharged home from cardiac standpoint. Coding Level of Care Code Acute Dietary Server for Janice Long Diagnoses Pulmonary edema J81.0 Chronicity: acute NSTEMI (non-ST elevated myocardial infarction) I21.4 Peripheral vascular disease I73.9 Essential hypertension I10 Hyperlipidemia E78.5 Hyperlipidemia type: unspecified Diabetes mellitus E11.9 Diabetes mellitus type: type 2 Diabetes mellitus superintendent terminal insulin use: without retirement use Diabetes mellitus complication status: with kidney complications Diabetes mellitus complication detail: with chronic kidney disease
[2020-08-08 08:38] LABS: Glucose Point of Care 103 mg/dL (70-110)
== END 2020-08-05 13:15 | disposition home or self-care (01) | DRG 871 ==
LOC: ER 07:01 → ICU 10:38 → CSU 07-27 20:24 → ICU 07-31 13:26 → CSU 08-04 12:38
PROVIDERS: Internal Medicine; Internal Medicine Cardiovascular Disease; Internal Medicine Nephrology; Surgery; Admitting Provider Internal Medicine; Emergency Provider Family Medicine; PCP Family Medicine; Visit Provider Internal Medicine
PROC: 0DJ08ZZ Inspection of Upper Intestinal Tract, Via Natural or Artificial Opening Endoscopic (ICD-10-PCS; CPT 43235; principal; 2020-08-01 09:00)
DX: A41.9 Sepsis, unspecified organism (principal); J96.02 Acute respiratory failure with hypercapnia; I21.A1 Myocardial infarction type 2; J69.0 Pneumonitis due to inhalation of food and vomit; N17.9 Acute kidney failure, unspecified; E22.2 Syndrome of inappropriate secretion of antidiuretic hormone; I16.1 Hypertensive emergency; K92.2 Gastrointestinal hemorrhage, unspecified; K92.0 Hematemesis; K29.70 Gastritis, unspecified, without bleeding; K57.10 Diverticulosis of small intestine without perforation or abscess without bleeding; K25.9 Gastric ulcer, unspecified as acute or chronic, without hemorrhage or perforation; K29.80 Duodenitis without bleeding; E11.51 Type 2 diabetes mellitus with diabetic peripheral angiopathy without gangrene; E11.22 Type 2 diabetes mellitus with diabetic chronic kidney disease; I12.9 Hypertensive chronic kidney disease with stage 1 through stage 4 chronic kidney disease, or unspecified chronic kidney disease; N18.30 Chronic kidney disease, stage 3 unspecified; L89.621 Pressure ulcer of left heel, stage 1; L89.610 Pressure ulcer of right heel, unstageable; E78.5 Hyperlipidemia, unspecified; E87.5 Hyperkalemia; D64.9 Anemia, unspecified; D47.3 Essential (hemorrhagic) thrombocythemia; I95.9 Hypotension, unspecified; I08.3 Combined rheumatic disorders of mitral, aortic and tricuspid valves
CPT/HCPCS: 12345; 31500; 36415; 36416; 36430; 36592; 36600; 43239; 51702; 71045; 74176; 76770; 80048; 80051; 80053; 80061; 80069; 81001; 82310; 82330; 82436; 82550; 82570; 82607; 82728; 82746; 82803; 82805; 82962; 83516; 83540; 83550; 83605; 83615; 83735; 83880; 83970; 84100; 84133; 84155; 84165; 84260; 84300; 84443; 84466; 84484; 85014; 85018; 85025; 85378; 85384; 85610; 85730; 86038; 86140; 86160; 86677; 86706; 86803; 86850; 86900; 86920; 87040; 87070; 87077; 87205; 87340; 87426; 93005; 93306; 93975; 94002; 94003; 94799; 96360; 96361; 96372; 96375; 97110; 97161; 97166; 97530; 99284; 99291; A4570; C9113; G0378; G0379; J0330; J0360; J1100; J1170; J1265; J1644; J1815; J1940; J1956; J2020; J2405; J2543; J2704; J3490; J7030; P9016; Q3014

== ENCOUNTER 2020-08-09 19:58 | Inpatient (IN) | payer MEDICARE, SELFPAY ==
[2020-08-09] VITALS (9 sets, daily range): BP systolic 140–152; BP diastolic 62–72; PULSE 77–106; RESP 18–35; TEMP 36.4; O2SAT 76–97; BMI 25.0
[2020-08-09 20:41] LABS: ABG PCO2 38.1 mmHg (35-45); ABG PH Result 7.33 (7.35-7.45); Alveolar-Arterial Oxygen Gradi 74.7 mmHg (5-10); Arterial Blood Gas Hematocrit 31.3 % (37-47); Base Excess ABG -5.6 mmol/L (-2.0-2.0); Blood Gas Allen Test Pos; Blood Gas Sample Site Radial, right; Blood Gas Sample Type Arterial; Carboxyhemoglobin 1.3 %THgb (0.4-20.1); HCO3 ABG 19.9 mmol/L (22-26); HGB O2 Sat 95.4 % (95-100); Ionized Calcium Level - ABG 1.2 mmol/L (1.1-1.4); Methemoglobin 0.3 % (0.4-1.5); Oxygen Device NRB; Oxygen Saturation ABG 96.9; PO2 ABG 88.2 mmHg (80.0-100.0); Potassium Level - ABG 4.8 mmol/L (3.5-5.0); Total Hemoglobin 10.2 g/dL (12-16)
--- NOTE | 2020-08-09 20:52 | ECG_ITS ---
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 Measurements Intervals [place] Rate: 78 P: 18 [place]: 119 QRS: -30 QRSD: 106 T: 123 QT: 390 QTc: 445 Interpretive Statements SINUS RHYTHM WITH SHORT [place] INTERVAL LEFT VENTRICULAR HYPERTROPHY AND ST-T CHANGE [VOLTAGE CRITERIA PLUS ST/T ABNORMALITY] Compared to ECG 07/26/2020 09:02:19 Sinus bradycardia no longer present Left-axis deviation no longer present ST (T wave) deviation still present Myocardial infarct finding still present Electronically Signed On 08-10-2020 19:00:18 BUNG SEWER by Paul Freitas M.D. [id number]
--- NOTE | 2020-08-09 20:52 | XRR_ITS ---
PROCEDURE INFORMATION: Exam: XR Chest, 1 View Exam date and time: 08/09/2020 9:19 PM Age: 75 years old Clinical indication: Shortness of breath; Prior surgery; Surgery type: Hyst; Additional info: SOB TECHNIQUE: Imaging protocol: XR of the chest Views: 1 view. COMPARISON: CR XR chest 1V portable [id number] 07/30/2020 10:30 PM FINDINGS: Lungs: Basilar consolidation/atelectasis bilaterally. Pleural space: moderate pleural effusions with adjacent basilar consolidation versus atelectasis. Heart/Mediastinum: Borderline cardiomegaly. Mild vascular congestion Bones/joints: Unremarkable. XR/XR chest 1V portable [id number] IMPRESSION: Moderate pleural effusions with adjacent basilar consolidation versus atelectasis. Subtle patchy airspace disease right upper lobe. Findings represent a change from the study dated 07-30-20
[2020-08-09] MEDS: FUROsemide 10 mg/mL SDV 10mL 80 MG IVP (21:00)
[2020-08-09 21:31] LABS: Basophils # 0.1 10^3/uL (0.0-0.1); Basophils % 0.9 %; Eosinophils # 0.1 10^3/uL (0.0-0.8); Eosinophils % 0.5 %; Hematocrit 33.3 % (37.0-47.0); Hemoglobin 10.7 g/dL (11.5-15.3); Lymphocytes # 0.9 10^3/uL (0.8-4.8); Lymphocytes % 5.8 %; Mean Corpuscular HGB Conc 32.1 g/dL (30.0-36.0); Mean Corpuscular Hemoglobin 28.3 pg (28.0-34.0); Mean Corpuscular Volume 88.1 fL (81-99); Mean Platelet Volume 10.2 fL (7.4-10.4); Monocytes # 0.6 10^3/uL (0.2-0.9); Monocytes % 3.9 %; Neutrophils % 88.3 %; Nucleated Red Blood Cells % 0 %; Platelet Count 406 10^3/cmm (130-400); Red Blood Count 3.78 10^6/uL (4.1-5.3); Red Cell Distribution Width 15.2 % (12.1-15.1); White Blood Count 15.6 10^3/uL (4.0-10.0)
[2020-08-09] MEDS: ipratropium-albuterol 3 mL Neb INHALATION (21:57)
[2020-08-09 22:19] LABS: Troponin(5th) Baseline 306 ng/L (0-10)
[2020-08-09 22:20] LABS: Alanine Aminotransferase 14 U/L (0-33); Alkaline Phosphatase 64 IU/L (35-105); Anion Gap 20.3 (5-19); Aspartate Amino Transferase 24 U/L (0-32); Blood Urea Nitrogen 33 mg/dL (8-23); Calcium 9.4 mg/dL (8.5-10.5); Carbon Dioxide 19 mmol/L (22-29); Chloride 98 mmol/L (98-107); Globulin 3.1 g/dL (1.3-4.6); Glucose 162 mg/dL (65-115); Lipase 89 U/L (13-60); Osmolality Calculated 285 mOsm/kg (285-295); Potassium 5.3 mmol/L (3.5-5.1); Sodium 132 mmol/L (136-145); Total Bilirubin 0.5 mg/dL (0.15-1.2); Total Protein 7.1 g/dL (6.6-8.7)
[2020-08-09 22:22] LABS: Influenza A by IFA Negative (Negative); Influenza B by IFA Negative (Negative); SARS Covid-2 Antigen Negative (Negative)
[2020-08-09 22:38] LABS: ABG PH Result 7.37 (7.35-7.45); Arterial Blood Gas Hematocrit 31.8 % (37-47); Base Excess ABG -5.3 mmol/L (-2.0-2.0); Blood Gas Allen Test Pos; Blood Gas Sample Site Radial, left; Blood Gas Sample Type Arterial; HCO3 ABG 19.2 mmol/L (22-26); Oxygen Device NC; PO2 ABG 68.5 mmHg (80.0-100.0)
--- NOTE | 2020-08-09 22:49 | P.HP_ITS ---
Providers/Chief Complaint Primary Care Provider: Crystal Olivia MD Chief Complaint: trouble breathing, swelling in extremities History of Present Illness Elizabeth Lima is a 75 year old female who was recently discharged from the hospital after management of type II ND, required 7 blood transfusions for anemia, aspirin, heparin were held, her peripheral angiogram was put on hold because of worsening creatinine, she has peripheral vascular dz with nonhealing foot ulcer, and possible coronary artery disease, moderate aortic stenosis, presenting today with chief complaint of swelling and shortness of breath. Of note, her previous hospital course was rather complicated and prolonged. 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 At the time of discharge her creatinine was 1.9, valsartan aspirin were held she was started on amlodipine 10 mg along hydralazine and Protonix. Patient is not able to give me any details, she was very obtunded, I requested ER physician to evaluate the patient 1 more time, also had her nurse and housekeeping manager check on this patient multiple times because of her worsening mental status however blood gas was showing improvement. She was moved from bed 3 to bed 10 for closer monitoring in case she would require intubation. I called her son to get the report. Son is stating that she did not have any diuretics at home, about 48 hours ago she started experiencing swelling in her arms and legs, he tried to give her hydralazine thinking it is a diuretic. Patient never complained of any chest pain, she was not febrile, no active emesis or diarrhea. No active bleeding. With her swelling she was experiencing shortness of breath on exertion at rest, hence she was brought to the ER for further evaluation. Diagnosis in the ER revealed hypertension, acute hypoxic hypercapnic respiratory failure, initially she was put on nonrebreather and was quickly transitioned to humidified high flow but after reviewing blood gas she was put on BiPAP to decrease work of breathing and improve hypercapnia, Initial blood gas showed respiratory acidosis with improvement in hypoxia on nonrebreather mask second blood gas was taken on humidified high flow 7.3 , I would request another blood gas on the BiPAP Covid antigen negative, chest x-ray showing bilateral pulmonary edema right greater than left, possible left-sided pneumonia as well . Meet sepsis criteria with tachypnea and leukocytosis BNP 62,000, negative delta troponin, EKG showing biphasic T waves lead I aVL otherwise no acute ND findings On my third evaluation patient was still somnolent, requested another blood gas, transfer her to room 10 in the ER, she received Ativan in the ER which worsened her mentation currently on BiPAP settings 16/8 FiO2 40%, respiratory rate was increased from 6-12 After reviewing troponin she was started on heparin drip Review of Systems General: Reports: ROS unobtainable due to medical condition (Patient received Ativan in the ER currently somnolent) Medications/Allergies Home Medications Medication Instructions Recorded Confirmed Last Taken Type atorvastatin 10 mg PO BEDTIME 07/23/20 07/25/20 07/22/20 21:00 History gabapentin 200 mg PO BID 07/23/20 07/25/20 07/23/20 10:30 History carvedilol [Coreg] 3.125 mg PO BID #60 tab 07/24/20 07/25/20 Unknown Rx valsartan 160 mg PO DAILY 07/25/20 07/25/20 Unknown History amlodipine 10 mg PO DAILY #30 tab 08/05/20 Unknown Rx hydralazine 50 mg PO TID #90 tab 08/05/20 Unknown Rx pantoprazole [Protonix] 40 mg PO DAILY #30 tab 08/05/20 Unknown Rx Allergies Allergy/AdvReac Type Severity Reaction Status Date / Time diclofenac [From Voltaren] Allergy Intermediate Wound Verified 06/18/20 13:48 metformin Allergy ADR-Diarrhe Verified 06/18/20 13:48 a mold Allergy Unknown Verified 06/18/20 13:48 PFSH Acute PFSH: Medical History Acute respiratory failure Anemia CKD (chronic kidney disease) stage 3, GFR 30-59 ml/min Critical lower limb ischemia Diabetes mellitus Diabetic ulcer of heel Essential hypertension Hematemesis Hyperlipidemia NSTEMI (non-ST elevated myocardial infarction) Peripheral vascular disease Pneumonia Pulmonary edema Surgical History Surgical history unknown Hysterectomy documented previously, but patient still appears to have her uterus on her CAT scan Family History Other Cancer Rheumatoid arthritis Social History Smoking and tobacco status: never smoked Alcohol intake: never Vitals/I&O/Wt Last Vital Signs Temp 97.6 F 08/09/20 20:06 Pulse 84 08/09/20 22:23 Resp 27 H 08/09/20 22:23 BP 142/67 08/09/20 22:23 Pulse Ox 92 08/09/20 22:23 Weight last 48 hrs Weight 54.431 kg Physical Exam Narrative: EXAM NARRATIVE: Frail elderly female Currently somnolent after getting Ativan in the ER On BiPAP setting 16 with good saturation She would open her eyes to sternal rub She gets startled after sternal rub and then goes back to sleep right away Clinically looks fluid overloaded all extremities look swollen Right heel nonhealing ulcer no active drainage however wound base looks macerated and purulent Abdomen shows multiple petechiae and bruises otherwise soft bowel sound present Bilateral assisted breath sounds with rhonchi and crackles Neuro exam limited after getting Ativan Mcfarland catheter draining clear yellow urine I do not appreciate any joint swelling Urinary Catheter Management^: Mcfarland: Cath Placed During This Visit: yes Urinary Catheter Date of Insertion: 08/09/20 Urinary Catheter Time of Insertion: 22:15 Data : 08/09/20 21:13 08/09/20 21:13 A&P Assessment and plan (1) Acute exacerbation of CHF (congestive heart failure): Status: Acute (2) Acute kidney injury superimposed on chronic kidney disease: Status: Acute (3) Sepsis: Status: Acute (4) Hospital-acquired pneumonia: Status: Acute (5) Acute respiratory failure with hypoxia and hypercapnia: Status: Acute Additional A&P Information Acute hypoxic hypercarbic respiratory failure Concern for left-sided pneumonia along CHF exacerbation Currently on BiPAP settings 22/03 with good saturation and tidal volume 500 Her mentation has become fluctuant after getting Ativan in the ER puts her at risk of intubation Son has been updated She is full code NSTEMI with acute CHF exacerbation Grade 2 diastolic dysfunction Preserved ejection fraction heart failure with moderate aortic stenosis Judicious use of diuretics I would only use IV Lasix 40 mg for now Recently had echocardiogram done no need to repeat Lead I aVL biphasic T waves otherwise no other ischemic or infarctive changes noted, significant delta troponin, Started her on heparin drip Serial EKGs and troponin Patient refused cardiac stress test on previous admission, she was diagnosed with type II ND however high risk for coronary disease considering peripheral vascular disease Sepsis Most likely source left lower lobe pneumonia I would start her on linezolid and aztreonam along cefepime secondary to worseni ng creatinine Obtain urine antigens, blood culture, sputum culture Acute on chronic kidney disease This seems to be cardiorenal in nature considering clinical signs of fluid overload and extremely high BNP Mcfarland catheter draining clear yellow urine If her creatinine is worsening would recommend nephro consult I am being judicious in use of diuretics considering moderate aortic stenosis as well Chronic blood loss anemia Patient required 6-7 blood transfusion last time, underwent EGD which showed gastritis/duodenitis I would continue Protonix 40 IV twice daily if her hemoglobin is declining I would discontinue heparin Her son is in agreement Full code DVT prophylaxis not needed currently on heparin drip N.p.o. Guarded prognosis Attestations Medical Necessity Statement*: Anticipating stay in the hospital cross more than 2 midnights continued management for sepsis, pneumonia, GERARD, NSTEMI, rajeev es guarded prognosis Time Spent in Patient Care: (>than 50% of time spent in counselling and/or direct pt care on unit) . 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
--- NOTE | 2020-08-09 22:52 | ECG_ITS ---
[facility] Test Date: 2020-08-09 Pat Name: Elizabeth Lima Department: Room: Gender: Female Licensing Manager: : 1945 Requested By: Kevin Cabrera I Order Number: [id number] Jose Cruz MD: Paul Freitas M.D. Measurements Intervals [place] Rate: 94 P: 23 MA: 142 QRS: -25 QRSD: 100 T: 107 QT: 367 QTc: 461 Interpretive Statements SINUS RHYTHM WITH OCCASIONAL SUPRAVENTRICULAR PREMATURE COMPLEXES POSSIBLE RIGHT VENTRICULAR CONDUCTION DELAY [RSR (QR) IN V1/V2] LEFT VENTRICULAR HYPERTROPHY AND ST-T CHANGE [VOLTAGE CRITERIA PLUS ST/T ABNORMALITY] POSSIBLE ANTEROSEPTAL MYOCARDIAL INFARCTION , OF INDETERMINATE AGE [30 ms Q WAVE IN V1-V4] Compared to ECG 07/26/2020 09:02:19 Sinus bradycardia no longer present Left-axis deviation no longer present ST (T wave) deviation still present Myocardial infarct finding still present Electronically Signed On 08-10-2020 19:10:33 PEDIATRIC CLINICAL NURSE SPECIALIST by Paul Freitas M.D. [email or web address]
[2020-08-09] MEDS: LORazepam 2 mg/mL INJ 1 mL 0.5 MG IVP (23:10)
[2020-08-10] VITALS (79 sets, daily range): BP systolic 119–164; BP diastolic 52–111; PULSE 64–103; RESP 14–35; O2SAT 88–98
--- NOTE | 2020-08-10 | XRR_ITS ---
PROCEDURE INFORMATION: Exam: XR Chest, 1 View Exam date and time: 08/10/2020 5:56 PM Age: 75 years old Clinical indication: Device placement; Ett placement (vent status); Patient HX: Post intubation/og tube placement TECHNIQUE: Imaging protocol: XR of the chest Views: 1 view. COMPARISON: CR XR chest 1V portable [id number] 08/09/2020 10:17 PM FINDINGS: Tubes, catheters and devices: Since yesterday a new endotracheal tube now ends midway between the clavicles and salo and a new nasogastric tube ends in the stomach. Lungs: Persisting bilateral central hazy opacities most likely representing edema. . Pleural space: Persisting bilateral pleural effusions Heart/Mediastinum: Unremarkable. No cardiomegaly. Bones/joints: Unremarkable. XR/XR chest 1V portable [id number] IMPRESSION: 1. New intubation 2. Persisting pulmonary edema with pleural effusions
[2020-08-10 00:27] LABS: Troponin 5 2HR Delta -21.8 ABS# (0-10)
[2020-08-10 00:36] LABS: Partial Thromboplastin Time 36.8 SECONDS (23.9-36.7)
[2020-08-10 00:37] LABS: Troponin 5 2HR 284.2 ng/L (0-10)
[2020-08-10] MEDS: heparin 5,000 unit/mL INJ 1 mL IV (00:37)
[2020-08-10] MEDS: heparin drip 25,000 UNIT/500 ML PREMIX 16.3 UNIT IV (00:40)
[2020-08-10 01:23] LABS: ABG PCO2 32.4 mmHg (35-45); ABG PH Result 7.39 (7.35-7.45); Arterial Blood Gas Hematocrit 36.9 % (37-47); Base Excess ABG -4.5 mmol/L (-2.0-2.0); Blood Gas Sample Site Radial, left; Blood Gas Sample Type Arterial; Carboxyhemoglobin 0.8 %THgb (0.4-20.1); HCO3 ABG 19.6 mmol/L (22-26); HGB O2 Sat 96.6 % (95-100); Ionized Calcium Level - ABG 1.2 mmol/L (1.1-1.4); Oxygen Device BIPAP; Oxygen Saturation ABG 98.3; PO2 ABG 98.4 mmHg (80.0-100.0); Potassium Level - ABG 4.6 mmol/L (3.5-5.0)
--- NOTE | 2020-08-10 01:28 | ED_ITS ---
HPI - SOB/Dyspnea General: Chief Complaint: Shortness of Breath/Dyspnea Stated Complaint: trouble breathing, swelling in extremities Time Seen by Provider: 08/09/20 20:14 Source: patient and family Mode of arrival: ambulatory Limitations: no limitations History of Present Illness: HPI Narrative: This 75-year-old female patient who was recently discharged from this facility about 4 days ago and at that time she was admitted for acute respiratory failure secondary to flash pulmonary edema. She was intubated, placed in the ICU and managed for the above. She states that last night she started having worsening shortness of breath and pedal edema. Symptoms continue to worsen and progressively got worse during the day so she came to be evaluated. On arrival she was severely hypoxic and her oxygen saturation was about 76% on room air. She denies any fever. MD elicited complaint: shortness of breath and cough Pertinent past history: congestive heart failure Onset (ago): day(s) (1) Context: recent illness Timing: constant and progressively worsening Severity: severe Exacerbating factors: lying flat Relieving factors: nothing Associated symptoms: Reports cough and orthopnea; Deny abdominal pain, chest congestion, chest pain, diaphoresis, dizziness, extremity pain, fever(s), hemoptysis, lightheadedness, myalgias, nausea, palpitations, paresthesias, polydipsia, polyuria, rash, sense of impending doom, syncope or vomiting Treatment prior to arrival: none Review of Systems General: Reports: 10 or more systems reviewed and unremarkable except in HPI and below Const: Denies: fever(s) or diaphoresis Eyes: Denies: change in vision or blurry vision ENMT: Denies: throat pain, enlarged tonsils, odynophagia, hoarseness, mouth pain or swelling of lips/tongue Card: Reports: orthopnea; Denies: chest pain, palpitations, lightheadedness or syncope Resp: Denies: hemoptysis or chest congestion GI: Denies: abdominal pain, nausea or vomiting : Denies: flank pain, difficulty voiding, dysuria, urinary frequency, urinary urgency or urinary hesitancy Musc: Denies: extremity pain Skin/Breast: Denies: rash, pruritus or erythema Neuro: Denies: headache(s), numbness in extremities or weakness in extremities Endo: Denies: polyuria or polydipsia PFS ED PFSH: Medical History Acute respiratory failure Anemia CKD (chronic kidney disease) stage 3, GFR 30-59 ml/min Critical lower limb ischemia Diabetes mellitus Diabetic ulcer of heel Essential hypertension Hematemesis Hyperlipidemia NSTEMI (non-ST elevated myocardial infarction) Peripheral vascular disease Pneumonia Pulmonary edema Surgical History Surgical history unknown Hysterectomy documented previously, but patient still appears to have her uterus on her CAT scan Family History Other Cancer Rheumatoid arthritis Social History Smoking and tobacco status: never smoked Alcohol intake: never Physical Exam Const: COMMON NORMALS: average body habitus, patient oriented x3, no limitations, healthy appearing, alert and well nourished GENERAL APPEARANCE: in distress HENMT: COMMON NORMALS: normocephalic, atraumatic and moist oral mucous membranes HEAD & SCALP: normocephalic and atraumatic Neck/C-Spine: COMMON NORMALS: full ROM, supple, no meningeal signs, no JVD and No carotid bruits Resp: COMMON NORMALS: percussion normal EFFORT & INSPECTION: No able to speak in complete sentences, Yes tachypneic, Yes respiratory distress, Yes labored and Yes uses accessory muscles AUSCULTATION: rales and diminished lung sounds PERCUSSION: percussion normal Cardio: COMMON NORMALS: no JVD, regular rate, regular rhythm, S1 normal heart sound present, S2 normal heart sound present, No gallops present (Cardio), No clicks present (Cardio), No murmurs present (Cardio), No rub (Cardio) and Peripheral pulses 2+ throughout RATE: regular rate RHYTHM: regular rhythm HEART SOUNDS: S1 normal heart sound present and S2 normal heart sound present PERIPHERAL PULSES: Peripheral pulses 2+ throughout GI: COMMON NORMALS: Normal to inspection, nondistended, normoactive bowel sounds present, Soft to palpation, non-tender, No hepatosplenomegaly present, no masses and no bruits PALPATION: Yes Soft to palpation and Yes No hepatosplenomegaly present Extremity: COMMON NORMALS: normal to inspection, full ROM, capillary refill normal and no calf tenderness GENERAL: Yes edema (2+) Neuro: COMMON NORMALS: patient oriented x3 SENSORIUM/ORIENTATION: Yes alert MENINGEAL SIGNS: Yes no meningeal signs Skin: COMMON NORMALS: no rashes or lesions noted, no wounds, turgor normal, no jaundice, no petechiae and no mottling GENERAL SKIN EXAM: no rashes or lesions noted and turgor normal Course Reevaluation(s): Reevaluation #1: Discussed her lab and imaging findings with her as well as my conversation with the hospitalist. She is in acute respiratory failure and will require hospital admission. Her troponin is markedly elevated. Because my differentials include a non-STEMI with markedly elevated troponin and a PE, however because of her renal function we cannot obtain a CTA, we will go ahead and start her on a heparin drip. Patient informed me and I called family by looking through the chart that she required significant amounts of blood transfusion on her last admission due to an upper GI bleed. However I think at this point the benefits of anticoagulation outweighs the risk of the bleeding. She voiced understanding and is in agreement with the plan. Time: 23:17 Consultations: Consultation #1: Discussed the patient with Dr. Arreaga, hospitalist. He kindly accepted the patient to his service. Time: 23:00 Vital Signs: Vital signs: Vital Signs Temperature 97.6 F 08/09/20 20:06 Pulse Rate 82 08/10/20 00:29 Respiratory Rate 19 H 08/10/20 00:29 Blood Pressure 156/65 08/10/20 00:29 Pulse Oximetry 97 08/10/20 00:29 MDM - SOB/Dyspnea MDM Narrative: Medical decision making narrative: This very ill 75-year-old female patient who presents to the emergency department in acute respiratory failure. She was eventually stabilized on the BiPAP and did not require mechanical intubation. She has congestive heart failure with significant pulmonary edema and pleural effusion, markedly elevated troponin concerning for non-STEMI, and also has as a differential pulmonary embolism. Her renal function has worsened from the time of her discharge we cannot obtain a CTA, and she is started on anticoagulation for the non-STEMI versus pulmonary embolism. Benefit of anticoagulation outweighs the risk and I discussed this with the patient and she is agreement with the plan. Medical Records: Attestation: I reviewed the patient's medical records. Lab Data: Attestation: I reviewed the patient's lab results. Labs: Lab Results 08/09/20 08/09/20 08/09/20 Range/Units 20:30 21:13 21:13 WBC 15.6 H (4.0-10.0) 10^3/ uL RBC 3.78 L (4.1-5.3) 10^6/u L Hgb 10.7 L (11.5-15.3) g/dL Hct 33.3 L (37.0-47.0) % MCV 88.1 (81-99) fL MCH 28.3 (28.0-34.0) pg MCHC 32.1 (30.0-36.0) g/dL RDW 15.2 H (12.1-15.1) % Plt Count 406 H (130-400) 10^3/c mm MPV 10.2 (7.4-10.4) fL Neut % (Auto) 88.3 % Lymph % (Auto) 5.8 % [place] % (Auto) 3.9 % Eos % (Auto) 0.5 % Baso % (Auto) 0.9 % Neut # (Auto) 13.80 H (1.8-7.7) 10^3/u L Lymph # (Auto) 0.9 (0.8-4.8) 10^3/u L [place] # (Auto) 0.6 (0.2-0.9) 10^3/u L Eos # (Auto) 0.1 (0.0-0.8) 10^3/u L Baso # (Auto) 0.1 (0.0-0.1) 10^3/u L Nucleated RBC % (a uto) 0 % Nucleated RBCs # 0.0 /100WBC APTT (23.9-36.7) SECO NDS Specimen Type Arterial Sample Site Radial, right ABG pH 7.33 L (7.35-7.45) ABG pCO2 38.1 (35-45) mmHg ABG pO2 88.2 (80.0-100.0) mmH g ABG HCO3 19.9 L (22-26) mmol/L ABG O2 Saturation 96.9 ABG Base Excess -5.6 L (-2.0-2.0) mmol/ L Jaren Test Pos A-a O2 Gradient 74.7 H (5-10) mmHg Hematocrit 31.3 L (37-47) % Hgb O2 Saturation 95.4 (95-100) % Carboxyhemoglobin 1.3 (0.4-20.1) %THgb Methemoglobin 0.3 L (0.4-1.5) % Total Hemoglobin 10.2 L (12-16) g/dL Sodium 133.0 132 L (131-143) mmol/L Potassium 4.8 5.3 H (3.5-5.0) mmol/L Glucose 154.0 H 162 H (70-115) mg/dL Ionized Calcium 1.2 (1.1-1.4) mmol/L O2 Delivery Device Nrb O2 Liters/Min 15.0 % FiO2 100.0 % [employer] Artist ID [email or web address] Chloride 98 (98-107) mmol/L Carbon Dioxide 19 L (22-29) mmol/L Anion Gap 20.3 H (5-19) BUN 33 H (8-23) mg/dL Creatinine 2.6 H (0.5-0.9) mg/dL GFR Calculation Not Reportable Calculated Osmolal ity 285 (285-295) mOsm/k g Calcium 9.4 (8.5-10.5) mg/dL Total Bilirubin 0.5 (0.15-1.2) mg/dL AST 24 (0-32) U/L ALT 14 (0-33) U/L Alkaline Phosphata se 64 (35-105) IU/L Troponin T Baselin e (0-10) ng/L Troponin T 120 Min [place] (0-10) ng/L Delta Troponin T (0-10) ABS# NT-Pro-B Natriuret Pep 60831 H (0-450) pg/mL Total Protein 7.1 (6.6-8.7) g/dL Albumin 4.0 (3.5-5.2) g/dL Globulin 3.1 (1.3-4.6) g/dL Lipase 89 H (13-60) U/L Influenza Type A A g (Negative) Influenza Type B A g (Negative) SARS-CoV-2 Ag (Rap id) (Negative) 08/09/20 08/09/20 08/09/20 Range/Units 21:13 21:13 21:13 WBC (4.0-10.0) 10^3/ uL RBC (4.1-5.3) 10^6/u L Hgb (11.5-15.3) g/dL Hct (37.0-47.0) % MCV (81-99) fL MCH (28.0-34.0) pg MCHC (30.0-36.0) g/dL RDW (12.1-15.1) % Plt Count (130-400) 10^3/c mm MPV (7.4-10.4) fL Neut % (Auto) % Lymph % (Auto) % [place] % (Auto) % Eos % (Auto) % Baso % (Auto) % Neut # (Auto) (1.8-7.7) 10^3/u L Lymph # (Auto) (0.8-4.8) 10^3/u L [place] # (Auto) (0.2-0.9) 10^3/u L Eos # (Auto) (0.0-0.8) 10^3/u L Baso # (Auto) (0.0-0.1) 10^3/u L Nucleated RBC % (a uto) % Nucleated RBCs # /100WBC APTT (23.9-36.7) SECO NDS Specimen Type Sample Site ABG pH (7.35-7.45) ABG pCO2 (35-45) mmHg ABG pO2 (80.0-100.0) mmH g ABG HCO3 (22-26) mmol/L ABG O2 Saturation ABG Base Excess (-2.0-2.0) mmol/ L Jaren Test A-a O2 Gradient (5-10) mmHg Hematocrit (37-47) % Hgb O2 Saturation (95-100) % Carboxyhemoglobin (0.4-20.1) %THgb Methemoglobin (0.4-1.5) % Total Hemoglobin (12-16) g/dL Sodium (131-143) mmol/L Potassium (3.5-5.0) mmol/L Glucose (70-115) mg/dL Ionized Calcium (1.1-1.4) mmol/L O2 Delivery Device O2 Liters/Min % FiO2 % [place] Artist ID Chloride (98-107) mmol/L Carbon Dioxide (22-29) mmol/L Anion Gap (5-19) BUN (8-23) mg/dL Creatinine (0.5-0.9) mg/dL GFR Calculation Calculated Osmolal ity (285-295) mOsm/k g Calcium (8.5-10.5) mg/dL Total Bilirubin (0.15-1.2) mg/dL AST (0-32) U/L ALT (0-33) U/L Alkaline Phosphata se (35-105) IU/L Troponin T Baselin e 306 H* (0-10) ng/L Troponin T 120 Min [place] (0-10) ng/L Delta Troponin T (0-10) ABS# NT-Pro-B Natriuret Pep (0-450) pg/mL Total Protein (6.6-8.7) g/dL Albumin (3.5-5.2) g/dL Globulin (1.3-4.6) g/dL Lipase (13-60) U/L Influenza Type A A g Negative (Negative) Influenza Type B A g Negative (Negative) SARS-CoV-2 Ag (Rap id) Negative (Negative) 08/09/20 08/09/20 08/09/20 Range/Units 21:13 22:30 23:16 WBC (4.0-10.0) 10^3/ uL RBC (4.1-5.3) 10^6/u L Hgb (11.5-15.3) g/dL Hct (37.0-47.0) % MCV (81-99) fL MCH (28.0-34.0) pg MCHC (30.0-36.0) g/dL RDW (12.1-15.1) % Plt Count (130-400) 10^3/c mm MPV (7.4-10.4) fL Neut % (Auto) % Lymph % (Auto) % [place] % (Auto) % Eos % (Auto) % Baso % (Auto) % Neut # (Auto) (1.8-7.7) 10^3/u L Lymph # (Auto) (0.8-4.8) 10^3/u L [place] # (Auto) (0.2-0.9) 10^3/u L Eos # (Auto) (0.0-0.8) 10^3/u L Baso # (Auto) (0.0-0.1) 10^3/u L Nucleated RBC % (a uto) % Nucleated RBCs # /100WBC APTT 36.8 H (23.9-36.7) SECO NDS Specimen Type Arterial Sample Site Radial, left ABG pH 7.37 (7.35-7.45) ABG pCO2 33.0 L (35-45) mmHg ABG pO2 68.5 L (80.0-100.0) mmH g ABG HCO3 19.2 L (22-26) mmol/L ABG O2 Saturation ABG Base Excess -5.3 L (-2.0-2.0) mmol/ L Jaren Test Pos A-a O2 Gradient (5-10) mmHg Hematocrit 31.8 L (37-47) % Hgb O2 Saturation (95-100) % Carboxyhemoglobin (0.4-20.1) %THgb Methemoglobin (0.4-1.5) % Total Hemoglobin (12-16) g/dL Sodium (131-143) mmol/L Potassium (3.5-5.0) mmol/L Glucose (70-115) mg/dL Ionized Calcium (1.1-1.4) mmol/L O2 Delivery Device Nc O2 Liters/Min 50.0 % FiO2 60.0 % [employer] Artist ID [id number] Chloride (98-107) mmol/L Carbon Dioxide (22-29) mmol/L Anion Gap (5-19) BUN (8-23) mg/dL Creatinine (0.5-0.9) mg/dL GFR Calculation Calculated Osmolal ity (285-295) mOsm/k g Calcium (8.5-10.5) mg/dL Total Bilirubin (0.15-1.2) mg/dL AST (0-32) U/L ALT (0-33) U/L Alkaline Phosphata se (35-105) IU/L Troponin T Baselin e (0-10) ng/L Troponin T 120 Min [place] 284.2 H (0-10) ng/L Delta Troponin T -21.8 L (0-10) ABS# NT-Pro-B Natriuret Pep (0-450) pg/mL Total Protein (6.6-8.7) g/dL Albumin (3.5-5.2) g/dL Globulin (1.3-4.6) g/dL Lipase (13-60) U/L Influenza Type A A g (Negative) Influenza Type B A g (Negative) SARS-CoV-2 Ag (Rap id) (Negative) 08/10/20 Range/Units 01:16 WBC (4.0-10.0) 10^3/ uL RBC (4.1-5.3) 10^6/u L Hgb (11.5-15.3) g/dL Hct (37.0-47.0) % MCV (81-99) fL MCH (28.0-34.0) pg MCHC (30.0-36.0) g/dL RDW (12.1-15.1) % Plt Count (130-400) 10^3/c mm MPV (7.4-10.4) fL Neut % (Auto) % Lymph % (Auto) % [place] % (Auto) % Eos % (Auto) % Baso % (Auto) % Neut # (Auto) (1.8-7.7) 10^3/u L Lymph # (Auto) (0.8-4.8) 10^3/u L [place] # (Auto) (0.2-0.9) 10^3/u L Eos # (Auto) (0.0-0.8) 10^3/u L Baso # (Auto) (0.0-0.1) 10^3/u L Nucleated RBC % (a uto) % Nucleated RBCs # /100WBC APTT (23.9-36.7) SECO NDS Specimen Type Arterial Sample Site Radial, left ABG pH 7.39 (7.35-7.45) ABG pCO2 32.4 L (35-45) mmHg ABG pO2 98.4 (80.0-100.0) mmH g ABG HCO3 19.6 L (22-26) mmol/L ABG O2 Saturation 98.3 ABG Base Excess -4.5 L (-2.0-2.0) mmol/ L Jaren Test N/a A-a O2 Gradient 28.0 H (5-10) mmHg Hematocrit 36.9 L (37-47) % Hgb O2 Saturation 96.6 (95-100) % Carboxyhemoglobin 0.8 (0.4-20.1) %THgb Methemoglobin 1.0 (0.4-1.5) % Total Hemoglobin 12.0 (12-16) g/dL Sodium 133.0 (131-143) mmol/L Potassium 4.6 (3.5-5.0) mmol/L Glucose 147.0 H (70-115) mg/dL Ionized Calcium 1.2 (1.1-1.4) mmol/L O2 Delivery Device Bipap O2 Liters/Min % FiO2 50.0 % [employer] Artist ID [id number] Chloride (98-107) mmol/L Carbon Dioxide (22-29) mmol/L Anion Gap (5-19) BUN (8-23) mg/dL Creatinine (0.5-0.9) mg/dL GFR Calculation Calculated Osmolal ity (285-295) mOsm/k g Calcium (8.5-10.5) mg/dL Total Bilirubin (0.15-1.2) mg/dL AST (0-32) U/L ALT (0-33) U/L Alkaline Phosphata se (35-105) IU/L Troponin T Baselin e (0-10) ng/L Troponin T 120 Min [place] (0-10) ng/L Delta Troponin T (0-10) ABS# NT-Pro-B Natriuret Pep (0-450) pg/mL Total Protein (6.6-8.7) g/dL Albumin (3.5-5.2) g/dL Globulin (1.3-4.6) g/dL Lipase (13-60) U/L Influenza Type A A g (Negative) Influenza Type B A g (Negative) SARS-CoV-2 Ag (Rap id) (Negative) Imaging Data^: CXR: Attestation: I personally reviewed and interpreted this imaging study as follows: My impression: Bilateral pleural effusions. Pulmonary vascular congestion. Pulmonary edema. Atelectasis versus basilar infiltrates EKG Data^: EKG 1: Attestation: I personally reviewed and interpreted this EKG as follows: EKG Interpretation Date: 08/09/20 EKG interpretation time: 21:53 Prior EKG tracings: available for review Interpretation: Sinus rhythm. Heart rate 78 bpm. Normal axis, no ST changes. EKG 2: Attestation: I personally reviewed and interpreted this EKG as follows: EKG Interpretation Date: 08/09/20 EKG interpretation time: 23:48 Prior EKG tracings: available for review Interpretation: sinus rhythm HR [address] changes. Critical Care Time Critical Care Time: Critical Care Time: Yes Total Critical Care Time: 60 Attestation: This case had a high probability of a clinically significant, sudden, or life threatening deterioration of this patient's condition which required my full and direct attention, intervention and personal management. Discharge Plan Discharge Patient Disposition: Admitted As Inpatient Clinical Impression: Acute respiratory failure with hypoxia and hypercapnia, Acute kidney injury superimposed on chronic kidney disease, Hospital-acquired pneumonia Condition: Stable Prescriptions: No Action atorvastatin 10 mg tablet 10 mg PO BEDTIME RF: 0 gabapentin 100 mg capsule 200 mg PO BID RF: 0 carvedilol [Coreg] 3.125 mg tablet 3.125 mg PO BID Qty: 60 RF: 3 valsartan 160 mg tablet 160 mg PO DAILY RF: 0 Hold Instructions: Resume on 08/12/20. amlodipine 10 mg tablet 10 mg PO DAILY Qty: 30 RF: 0 hydralazine 50 mg tablet 50 mg PO TID Qty: 90 RF: 0 Protonix 40 mg tablet,delayed release (DR/EC) 40 mg PO DAILY Qty: 30 RF: 3 Referrals: Crystal Olivia MD [Primary Care Provider] - Coding Level of Care Code ED Administrative Services Assistant for [facility]
[2020-08-10 04:23] LABS: Troponin 5 6HR 300.6 ng/L (0-10); Troponin 5 6HR Delta -5.4 ng/L (0-12)
[2020-08-10] MEDS: aztreonam 2,000 MG in sodium chloride 0.9% (plus) 100 ML 200 MG IV (06:11)
[2020-08-10] MEDS: pantoprazole 40 mg SDV IVP (06:12)
[2020-08-10] MEDS: hyDRALAzine 50 mg Tablet PO ×2 (06:54→16:38)
[2020-08-10] MEDS: carvedilol 3.125 mg Tablet PO ×2 (06:54→21:53)
[2020-08-10] MEDS: cefepime 2,000 MG in sodium chloride 0.9% (plus) 50 ML 100 MG IV (07:48)
[2020-08-10] MEDS: linezolid premix 600 MG/300 ML PREMIX 300 MG IV (08:08)
[2020-08-10] MEDS: FUROsemide 10 mg/mL SDV 4mL 40 MG IVP ×2 (09:25→21:55)
[2020-08-10] MEDS: clopidogrel 75 mg Tablet PO (09:25)
--- NOTE | 2020-08-10 10:28 | PC.PHAR ---
pts son states he is unsure if the pt is taking coreg-this medication was a active medication on the discharge papers from 08/05/2020-pts son states the pt is suppose to takes a 81mg aspirin daily pts discharge papers from 08/05/2020 show this medication as a dced medication-pts son states the pt is taking valsartan but the discharge papers has this medication on hold till 08/12/2020
--- NOTE | 2020-08-10 11:09 | P.PN_ITS ---
Subjective Subjective: Interval history: History and physical reviewed. Elizabeth was on BiPAP when I visited her. She was hopeful she would not need the ventilator. She reported she was breathing okay on BiPAP. Medications: Reviewed: Yes Vitals/I&O/Wt Last Vital Signs Temp 97.6 F 08/09/20 20:06 Pulse 77 08/10/20 10:00 Resp 22 H 08/10/20 10:00 BP 148/69 08/10/20 10:00 Pulse Ox 96 08/10/20 10:00 08/09/20 08/10/20 08/10/20 22:59 06:59 14:59 Intake Total 100 / 100 50 / 50 Balance 100 / 100 50 / 50 Weight last 48 hrs Weight 54.431 kg Physical Exam Narrative: EXAM NARRATIVE: General exam no apparent distress Cardiovascular regular rate and rhythm without murmur Lungs clear Abdomen is soft, positive bowel sounds Extremities no cyanosis clubbing . right heel ulcer is noted. 1 plus edema Urinary Catheter Management^: Mcfarland: Cath Placed During This Visit: yes Reason for Continuing Indwelling Catheter: Accurate Measurement of Urinary Output in Critically Ill Patients Urinary Catheter Date of Insertion: 08/09/20 Urinary Catheter Time of Insertion: 22:15 Data : 08/09/20 21:13 08/09/20 21:13 Micro: Microbiology 08/10/20 07:11 Bacterial Antigens - Final Urine,Clean Catch 08/10/20 07:11 Legionella Urinary Antigen - Final Urine Catheterized 08/10/20 03:15 Blood Culture - Preliminary Blood SPECIMEN COLLECTED 08/10/20 02:45 Blood Culture - Preliminary Blood SPECIMEN COLLECTED A&P Assessment and plan (1) Acute exacerbation of CHF (congestive heart failure): Continue diuresis with IV Lasix Follow-up electrolytes this afternoon Wean off BiPAP as tolerated Suspect diastolic heart failure. Last EF 55%, moderate aortic valve stenosis with valve area of 1.1, and grade 2 diastolic dysfunction Status: Acute (2) Acute kidney injury superimposed on chronic kidney disease: Hopefully this will improve with diuresis Recent renal ultrasound no obstruction Avoid renal toxic medication Hold ARB Status: Acute (3) Sepsis: IV antibiotics consisting of linezolid and cefepime and aztreonam initiated Sputum and blood culture Check pro calcitonin Status: Acute (4) Hospital-acquired pneumonia: Antibiotics as noted above Status: Acute (5) Acute respiratory failure with hypoxia and hypercapnia: BiPAP. Wean off as tolerated. Status: Acute Additional A&P Information Acute hypoxic hypercarbic respiratory failure. Secondary to pneumonia and CHF exacerbation Elevated troponin. Secondary to acute systolic heart failure as well as renal dysfunction. No significant delta. I do not believe she needs full anticoagulation at this time. Edema. check bilateral venous duplex. History of anemia and recent transfusion. Hold heparin drip. Placed on subcutaneous heparin. No evidence for acute [place] as no significant delta on troponin. Unless DVT is found I believe the risk of anticoagulation is higher than the benefit. Peripheral vascular disease. Keep pressure off right heel History of chronic blood loss anemia. Recent history of EGD showing gastritis and duodenitis. Continue Protonix. History of hypertension Full code DVT prophylaxis with heparin subcutaneous Attestations Medical Necessity Statement*: Needs continued hospital stay for respiratory support with BiPAP secondary to respiratory failure Critical Care Time: 35 minutes spent in critical care time secondary to patient with acute respiratory failure requiring BiPAP with associated acute kidney injury, hospital-acquired pneumonia, sepsis. High risk for morbidity and mortality,, and further decompensation in clinical status. Coding Level of Care Code Acute Front Office Medical Assistant for [facility] Diagnoses Acute exacerbation of CHF (congestive heart failure) I50.9 Acute kidney injury superimposed on chronic kidney disease N17.9; N18.9 Sepsis A41.9 Hospital-acquired pneumonia J18.9; Y95 Acute respiratory failure with hypoxia and hypercapnia J96.01; J96.02
[2020-08-10 12:06] LABS: Basophils # 0.1 10^3/uL (0.0-0.1); Basophils % 1.1 %; Eosinophils # 0.3 10^3/uL (0.0-0.8); Eosinophils % 1.9 %; Hemoglobin 9.5 g/dL (11.5-15.3); Lymphocytes # 1.2 10^3/uL (0.8-4.8); Lymphocytes % 9.3 %; Mean Corpuscular HGB Conc 32.8 g/dL (30.0-36.0); Mean Corpuscular Hemoglobin 28.8 pg (28.0-34.0); Mean Corpuscular Volume 87.9 fL (81-99); Mean Platelet Volume 10.7 fL (7.4-10.4); Monocytes # 0.8 10^3/uL (0.2-0.9); Monocytes % 5.8 %; Neutrophils # 10.73 10^3/uL (1.8-7.7); Neutrophils % 81.4 %; Nucleated Red Blood Cells % 0 %; Platelet Count 351 10^3/cmm (130-400); Red Cell Distribution Width 15.3 % (12.1-15.1); White Blood Count 13.2 10^3/uL (4.0-10.0)
--- NOTE | 2020-08-10 12:11 | PC.RESP ---
Patient was placed on a nasal cannula, per Dr. Mcgee, of 6LPM sats dropped to 87%. Patient was placed back on bipap of 18/10 and 45%. sats are 93%.
[2020-08-10 14:17] LABS: Procalcitonin 0.25 ng/mL (0-0.5)
[2020-08-10 14:38] LABS: Alanine Aminotransferase 12 U/L (0-33); Albumin Level 3.3 g/dL (3.5-5.2); Alkaline Phosphatase 52 IU/L (35-105); Anion Gap 18.5 (5-19); Aspartate Amino Transferase 19 U/L (0-32); Blood Urea Nitrogen 35 mg/dL (8-23); Calcium 8.6 mg/dL (8.5-10.5); Carbon Dioxide 19 mmol/L (22-29); Chloride 98 mmol/L (98-107); Creatine Phosphokinase 49 U/L (26-192); Glucose 154 mg/dL (65-115); Osmolality Calculated 283 mOsm/kg (285-295); Potassium 4.5 mmol/L (3.5-5.1); Sodium 131 mmol/L (136-145); Total Bilirubin 0.4 mg/dL (0.15-1.2); Total Protein 6.3 g/dL (6.6-8.7)
[2020-08-10] MEDS: ipratropium-albuterol 3 mL Neb INHALATION ×2 (17:06→19:51)
[2020-08-10] MEDS: succinylcholine 20 mg/mL SDV 10mL 120 MG IVP (17:44)
[2020-08-10] MEDS: propofol 1,000 MG/100 ML INJ 2.6 MG IV (17:46)
--- NOTE | 2020-08-10 17:49 | PC.NURSE ---
recd from dorcas
--- NOTE | 2020-08-10 17:49 | PC.NURSE ---
pt oxygenation continued to decline when attempted to transfer to ICU. pt work of breathing increased as her respirations were 40/minute. ED physician at bedside and spoke with Pt to get permission for intubation. Pt intubated successfully without incident at 1745.
[2020-08-10] MEDS: HYDROmorphone 1 mg/mL INJ 1 mL IVP (18:07)
[2020-08-10] MEDS: vecuronium 10 mg SDV IVP (18:25)
[2020-08-10 18:37] LABS: ABG PCO2 36.2 mmHg (35-45); ABG PH Result 7.35 (7.35-7.45); Arterial Blood Gas Hematocrit 30.2 % (37-47); Base Excess ABG -5.4 mmol/L (-2.0-2.0); Blood Gas Allen Test Pos; Blood Gas Operator Identificat ED; Blood Gas Sample Site Radial, right; Blood Gas Sample Type Arterial; HCO3 ABG 19.8 mmol/L (22-26); Oxygen Device VENT
[2020-08-10] MEDS: dexmedetomidine 400 MCG in sodium chloride 0.9% (100 ml) 100 ML IV (18:53)
--- NOTE | 2020-08-10 21:42 | PC.NURSE ---
notified that pt had recent GI bleed. Order received to hold tonight's dose of heparin.
[2020-08-10] MEDS: linezolid 600 mg Tablet PO (21:53)
[2020-08-10] MEDS: aztreonam 1,000 MG in sodium chloride 0.9% (plus) 50 ML 100 MG IV (21:54)
[2020-08-10] MEDS: atorvastatin 40 mg Tablet 80 MG PO (21:55)
[2020-08-11] VITALS (288 sets, daily range): BP systolic 104–132; BP diastolic 44–69; PULSE 46–77; RESP 14–21; TEMP 36.7–38.2; O2SAT 91–98
[2020-08-11] MEDS: ipratropium-albuterol 3 mL Neb INHALATION ×4 (03:05→19:49)
[2020-08-11 04:04] LABS: Basophils # 0.1 10^3/uL (0.0-0.1); Basophils % 0.8 %; Eosinophils # 0.1 10^3/uL (0.0-0.8); Eosinophils % 0.4 %; Hematocrit 26.8 % (37.0-47.0); Hemoglobin 8.4 g/dL (11.5-15.3); Lymphocytes # 1.6 10^3/uL (0.8-4.8); Lymphocytes % 13.3 %; Mean Corpuscular HGB Conc 31.3 g/dL (30.0-36.0); Mean Corpuscular Hemoglobin 28.7 pg (28.0-34.0); Mean Corpuscular Volume 91.5 fL (81-99); Mean Platelet Volume 10.9 fL (7.4-10.4); Monocytes # 0.8 10^3/uL (0.2-0.9); Monocytes % 6.8 %; Neutrophils # 9.13 10^3/uL (1.8-7.7); Neutrophils % 78.4 %; Nucleated Red Blood Cells % 0 %; Platelet Count 243 10^3/cmm (130-400); Red Blood Count 2.93 10^6/uL (4.1-5.3); Red Cell Distribution Width 15.6 % (12.1-15.1); White Blood Count 11.7 10^3/uL (4.0-10.0)
[2020-08-11 04:48] LABS: Blood Urea Nitrogen 39 mg/dL (8-23); Calcium 8.3 mg/dL (8.5-10.5); Carbon Dioxide 18 mmol/L (22-29); Chloride 100 mmol/L (98-107); Glucose 96 mg/dL (65-115); Osmolality Calculated 285 mOsm/kg (285-295); Sodium 133 mmol/L (136-145)
[2020-08-11 04:55] LABS: ABG PCO2 29.9 mmHg (35-45); ABG PH Result 7.45 (7.35-7.45); Arterial Blood Gas Hematocrit 28.9 % (37-47); Base Excess ABG -2.4 mmol/L (-2.0-2.0); Blood Gas Allen Test Pos; Blood Gas Operator Identificat JB; Blood Gas Sample Site Radial, right; Blood Gas Sample Type Arterial; HCO3 ABG 20.9 mmol/L (22-26); Oxygen Device VENT
[2020-08-11 06:06] LABS: Anion Gap 19.5 (5-19); Potassium 4.5 mmol/L (3.5-5.1)
--- NOTE | 2020-08-11 07:00 | XRR_ITS ---
PROCEDURE INFORMATION: Exam: XR Chest, 1 View Exam date and time: 08/11/2020 3:52 AM Age: 75 years old Clinical indication: Condition or disease; Lung condition and disease; Respiratory failure; Status not specified; Additional info: Follow up resp failure TECHNIQUE: Imaging protocol: XR of the chest Views: 1 view. COMPARISON: CR XR chest 1V portable [id number] 08/10/2020 5:44 PM FINDINGS: Tubes, catheters and devices: Endotracheal tube tip resides 3.4 cm above the salo. Enteric tube extends to the left abdomen. Lungs: Underlying pulmonary venous congestion and suspected airspace edema versus underlying pneumonic infiltrates or combination of both. Pleural space: Persistent bilateral pleural effusions. Heart/Mediastinum: Cardiac enlargement. Bones/joints: Degenerative change of thoracic spine. Osteopenia. Soft tissues: The chest is rotated. XR/XR chest 1V portable [id number] IMPRESSION: 1. Cardiac enlargement with persistent suspected pulmonary edema and bilateral pleural effusions. 2. Perihilar and lower lung more focal airspace opacities could not exclude a component of pneumonia or atelectasis.
[2020-08-11] MEDS: propofol 1,000 MG/100 ML INJ 4.2 MG IV (07:38)
--- NOTE | 2020-08-11 07:53 | USCV_ITS ---
Elizabeth Lima Age: 75 Gender: F : 1945 Exam Date: 08/11/2020 12:28 Ordering Phys: Yossi Mcgee MD Technologist: Julio César Mendenhall Exam Location: [facility] – [place]_ Indication: EDEMA PROCEDURES: Venous duplex imaging was performed in bilateral lower extremities. The following venous structures were evaluated: common femoral vein, profunda vein, proximal portion of the greater saphenous vein, superficial femoral vein, and the popliteal vein. In addition, the posterior tibial and peroneal trunk were evaluated. Serial compression, augmentation maneuvers, and spectral Doppler flow evaluation were performed. FINDINGS: Normal 2-D Doppler and augmentation and compressibility throughout the lower extremity venous structures. Additional imaging through the proximal calf veins also reveals no thrombus. Limited evaluation of the greater saphenous vein is patent with no thrombus.. CONCLUSIONS No evidence of DVT in the above-mentioned identifiable veins. Limited evaluation of the greater saphenous veins revealed no evidence of thrombosis Dr Tanna Dickson MD [facility] (Electronically Signed) Final Date: 11 August 2020 20:30 S
--- NOTE | 2020-08-11 08:02 | CTR_ITS ---
PROCEDURE INFORMATION: Exam: CT Chest Without Contrast; Diagnostic Exam date and time: 08/11/2020 4:42 PM Age: 75 years old Clinical indication: Shortness of breath; Additional info: Pleural feffusion, resp failure, pneumonia TECHNIQUE: Imaging protocol: Diagnostic computed tomography of the chest without contrast. Total images: 269 Radiation optimization: All CT scans at this facility use at least one of these dose optimization techniques: automated exposure control; mA and/or kV adjustment per patient size (includes targeted exams where dose is matched to clinical indication); or iterative reconstruction. COMPARISON: CR XR chest 1V portable [id number] 08/11/2020 3:41 AM RADIATION DOSE METRICS: Total DLP (mGy-cm): 832.54 FINDINGS: Tubes, catheters and devices: Endotracheal tube in satisfactory position tip above the salo. Nasogastric tube tip below the diaphragm at the level of body of the stomach. Lungs: Segmental consolidated alveolar airspace disease bilateral lower lobes with air bronchograms which could reflect pneumonia, atelectasis, and/or focal edema. Ground-glass interstitial lung disease base of the left upper lobe and throughout the lingula. Evidence of early consolidation. This finding would suggest active pneumonitis/pneumonia versus focal edema. Pleural space: Examination reveals a moderately large right pleural effusion and moderate volume left. Heart: Mild cardiomegaly. No visible pericardial effusion. Calcified mitral annulus. Advanced 3 vessel coronary artery disease. Aorta: The thoracic aorta is nonaneurysmal. Advanced arterial sclerotic disease. Lymph nodes: Mediastinal and suspected hilar lymphadenopathy most likely reactive. Largest pretracheal node measures 13 mm in the short axis. Gallbladder and bile ducts: Cholelithiasis. Bones/joints: Degenerative disease and degenerative disc disease of the spine with spondylosis deformans. Osteopenia/osteoporosis. Soft tissues: Evidence of mild anasarca. CT/CT chest wo con [id number] IMPRESSION: 1. Moderately large right pleural effusion and moderate volume left. 2. Segmental consolidated alveolar airspace disease bilateral lower lobes with air bronchograms which could reflect pneumonia, atelectasis, and/or focal edema. 3. Ground-glass interstitial lung disease base of the left upper lobe and throughout the lingula. Evidence of early consolidation. This finding would suggest active pneumonitis/pneumonia versus focal edema. 4. Advanced 3 vessel coronary artery disease. 5. Mediastinal and suspected hilar lymphadenopathy most likely reactive. 6. Other nonurgent, nonemergent, chronic, and age related findings as detailed in text above. Radiation Dose CTDIVOL = (mGy): DLP = 832.54 (mGy-cm)
--- NOTE | 2020-08-11 08:13 | P.CONIM_ITS ---
Providers/Reason For Consult Consulting Physican/Specialty*: bob azul md / telenephrology Reason for Consult*: GERARD on CKD Attending Physician: Yossi Mcgee MD Primary Care Provider: Crystal Olivia MD History of Present Illness History of Present Illness Elizabeth Lima is a 75 year old female admitted w/ CHF exacerbation. She has EF 55%, moderate and moderate diastolic dysfunction. She had normal cr till March 2020- cr started to rise to 1.4. In jul 2020- cr kelly as high as 3.1 mg/dl. Pt improved to cr 1.9 on Aug 05, 2020. She had recent hospitalization for GERARD, htn urgency and GI bleed. She required 7 u prbc tx. EGD revealed gastritis/ duodenitis. [place] [facility] [place] [facility] [place]w/ htn, AMS, hypercapneic resp acidosis. She was treated for presumed sepsis form PNA w/ linezolid and aztreonam. Pts resp status worsened and she was intubated- r is rising and renal is called. Review of Systems General: Reports: ROS unobtainable due to mental status Meds/Allergies Home Medications and Allergies Home Medications Medication Instructions Recorded Confirmed Last Taken Type gabapentin 200 mg PO BID 07/23/20 08/10/20 07/23/20 10:30 History carvedilol [Coreg] 3.125 mg PO BID #60 tab 07/24/20 08/10/20 Unknown Rx valsartan 160 mg PO DAILY 07/25/20 08/10/20 Unknown History amlodipine 10 mg PO DAILY #30 tab 08/05/20 08/10/20 Unknown Rx hydralazine 50 mg PO TID #90 tab 08/05/20 08/10/20 Unknown Rx pantoprazole [Protonix] 40 mg PO DAILY #30 tab 08/05/20 08/10/20 Unknown Rx aspirin [Aspir-81] See Rx Instructions .ROUTE .COMPLEX 08/10/20 08/10/20 Unknown History atorvastatin 10 mg PO QPM 08/10/20 08/10/20 Unknown History Allergies Allergy/AdvReac Type Severity Reaction Status Date / Time diclofenac [From Voltaren] Allergy Intermediate Wound Verified 08/10/20 09:23 metformin Allergy ADR-Diarrhe Verified 08/10/20 09:23 a mold Allergy Unknown Verified 08/10/20 09:23 FLU SHOT Allergy Unknown Uncoded 08/10/20 09:22 Current Medications Current Medications Generic Name Dose Route Start Last Admin Trade Name Ilyaq PRN Reason Stop Dose Admin Atorvastatin Calcium 80 mg 08/10/20 21:00 08/10/20 21:55 Atorvastatin 40 Mg Tablet PO 80 mg BEDTIME KIMBERLY Administration Carvedilol 3.125 mg 08/10/20 06:45 08/10/20 21:53 Carvedilol 3.125 Mg Tablet PO 3.125 mg BID KIMBERLY Administration Furosemide 40 mg 08/10/20 21:00 08/10/20 21:55 Furosemide 10 Mg/Ml Sdv 4ml IVP 40 mg Q12H KIMBERLY Administration Hydralazine HCl 50 mg 08/10/20 06:45 08/10/20 23:15 Hydralazine 50 Mg Tablet PO Not Given TID KIMBERLY Aztreonam 1,000 mg/ Sodium 50 mls @ 100 mls/hr 08/10/20 18:00 08/10/20 21:54 Chloride IV 100 mls/hr Q12H KIMBERLY Administration Dexmedetomidine HCl 400 mcg/ 104 mls @ 0 mls/hr 08/10/20 18:00 08/11/20 00:43 Sodium Chloride IV 0.3 mcg/kg/hr .Q0M KIMBERLY 4.2 mls/hr Titration Protocol Per Protocol Propofol 1,000 mg in 100 mls @ 0 mls/hr 08/10/20 18:00 08/11/20 07:38 Diprivan IV 13 mcg/kg/min .Q0M KIMBERLY 4.2 mls/hr Administration Protocol Per Protocol Linezolid 600 mg 08/10/20 20:00 08/10/20 21:53 Linezolid 600 Mg Tablet PO 600 mg Q12H KIMBERLY Administration Pantoprazole Sodium 40 mg 08/10/20 06:00 08/11/20 05:00 Pantoprazole 40 Mg Sdv IVP Not Given Q12H KIMBERLY PFSH Acute PFSH: Medical History Acute respiratory failure Anemia CKD (chronic kidney disease) stage 3, GFR 30-59 ml/min Critical lower limb ischemia Diabetes mellitus Diabetic ulcer of heel Essential hypertension Hematemesis Hyperlipidemia NSTEMI (non-ST elevated myocardial infarction) Peripheral vascular disease Pneumonia Pulmonary edema Surgical History Surgical history unknown Hysterectomy documented previously, but patient still appears to have her uterus on her CAT scan Family History Other Cancer Rheumatoid arthritis Social History Smoking and tobacco status: never smoked Alcohol intake: never Vitals/I&O/Wt Last Vital Signs Temp 99.5 F 08/11/20 00:15 Pulse 58 L 08/11/20 07:30 Resp 21 H 08/11/20 05:58 BP 122/53 08/11/20 07:30 Pulse Ox 97 08/11/20 07:30 08/10/20 08/11/20 08/11/20 22:59 06:59 14:59 Intake Total 25.776 / 252.088 30. / 30.66 Output Total 1000 / 1000 850 / 1850 Balance -1000 / -773.688 -824.224 / -1597.912 30.66 / 30.66 Weight last 48 hrs Weight 54.431 kg Physical Exam Narrative: EXAM NARRATIVE: intubated vent fio2 of 60%, TV 400, PEEP 8, RR 14 - uop 1850 ml heent- nca/t, eomi neck supple lungs per RN- good air movement heart - reg, +HSM abd soft, nt, +BS ext 1+ edema neuro- sedated Urinary Catheter Management^: Mcfarland: Cath Placed During This Visit: yes Reason for Continuing Indwelling Catheter: Accurate Measurement of Urinary Output in Critically Ill Patients Urinary Catheter Date of Insertion: 08/09/20 Urinary Catheter Time of Insertion: 22:15 Data Micro: Micro: Microbiology 08/10/20 03:15 Blood Culture - Pr eliminary Blood NEGATIVE TO INSHI E 08/10/20 02:45 Blood Culture - Pr eliminary Blood NEGATIVE TO NISHI E 08/10/20 07:11 Bacterial Antigens - Final Urine,Clean Catch 08/10/20 07:11 Legionella Urinary Antigen - Final Urine Catheterize d A&P Additional A&P Information 75 yr old female PVD/ CAD, diastolic dysfunction, recent GI bleed- s/p 7 u prbc tx, diastolic dysfunction, moderate . 1.renal dysfunction- cr was normal till March 2020. then slowly rising and improving. -in Jul 2020- Gerard- cr to 3.8 and improved to 1.9 -recurrent GERARD- likely CRS vs ATN from dropping her high BP and lasix -recent SPEP and DALE and Renal us normal -jul lasix if okay w/ medicine -repeat ua 2. PNA -renal dose abx 3. Acute on chronic diastolic dysfunction- consider thoracentesis. Cardiology has recommeneded a stress test and full cardiac eval- pt is high risk for SHAILA if needs angiogram 4. anemia- recent Presumed GI bleed from gastritis/ duodenitis- Q further eval -check iron studies 5. resp alakalosis 6.hyponatremia from , diastolic CHF and GERARD/ lasix discussed w/ Dr. 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
[2020-08-11] MEDS: cefepime 1,000 MG in sodium chloride 0.9% (plus) 50 ML 100 MG IV (08:41)
[2020-08-11] MEDS: aztreonam 1,000 MG in sodium chloride 0.9% (plus) 50 ML 100 MG IV (08:42)
[2020-08-11] MEDS: linezolid 600 mg Tablet PO (08:43)
[2020-08-11] MEDS: carvedilol 3.125 mg Tablet PO (08:43)
[2020-08-11] MEDS: hyDRALAzine 50 mg Tablet PO (08:43)
--- NOTE | 2020-08-11 09:00 | P.CONIM_ITS ---
Providers/Reason For Consult Consulting Physican/Specialty*: PASCUAL Dickson MD/cardiology Reason for Consult*: Patient with congestive heart failure, recent non-ST elevation myocardial infarction and aortic valve stenosis Attending Physician: Yossi Mcgee MD Primary Care Provider: Crystal Olivia MD History of Present Illness History of Present Illness Elizabeth Lima is a 75 year old female is admitted to hospital through the emergency room where she presented with respiratory distress. This patient was recently discharged from the hospital after a prolonged hospital stay. She was discharged home on last . On Monday she started having shortness of breath. By Monday the shortness of breath became worse. She was finding it difficult to breathe and there was some mental status changes as well. For these reasons, her son brought her to the hospital. This patient is known to have multiple medical problems. She was admitted to the hospital on 25 of July with features of an acute pulmonary edema and accelerated hypertension. She had features of acute renal injury. She also developed a GI bleed during the hospital stay. She had a total of 7 units of blood transfusion. Her hospital course was complicated with pneumonia and a non-ST elevation myocardial infarction. After prolonged hospital stay, she was discharged home on . The plan was to consider further cardiac work-up and also possible peripheral angiogram, once the kidney function gets stabilized. Currently the patient is intubated and sedated. Most of the information is from the medical records and also from the patient's son. According to the son, the patient felt okay for couple of days after the hospital discharge. Because of the worsening shortness of breath and mental status changes, she was brought back to the hospital. She has some worsening of the kidney function. Her chest x-ray shows features of congestive heart failure and possible pneumonia. She is being treated with IV antibiotics and diuretics. She also was evaluated by the design and sales consultant this morning. She has no documented chest pain or any significant cardiac arrhythmia. Her LV ejection fraction was normal by echocardiogram Based on the echocardiogram, on 25 July, she was found to have moderate aortic valve stenosis and grade 2 left ventricular diastolic dysfunction. Review of Systems Narrative: CONSTITUTIONAL: No fever or chills. EYES: No recent visual disturbances ENT: Nothing specific noted in the records CARDIOVASCULAR: As mentioned above. RESPIRATORY: As mentioned above. Recent pneumonia/respiratory distress GASTROINTESTINAL: No hematemesis or melena. GENITOURINARY: Worsening kidney function INTEGUMENTARY: No unusual skin rashes or ecchymosis NEURO: Had some altered mental status at the time of admission PSYCHIATRIC: No history of psychosis or major depression. HEMATOLOGIC: Recent GI bleed and multiple blood transfusion. ENDOCRINE: Type 2 diabetes MUSCULOSKELETAL: No recent joint pain or swelling. ALLERGY/IMMUNOLOGY: As mentioned above. Meds/Allergies Home Medications and Allergies Home Medications Medication Instructions Recorded Confirmed Last Taken Type gabapentin 200 mg PO BID 07/23/20 08/10/20 07/23/20 10:30 History carvedilol [Coreg] 3.125 mg PO BID #60 tab 07/24/20 08/10/20 Unknown Rx valsartan 160 mg PO DAILY 07/25/20 08/10/20 Unknown History amlodipine 10 mg PO DAILY #30 tab 08/05/20 08/10/20 Unknown Rx hydralazine 50 mg PO TID #90 tab 08/05/20 08/10/20 Unknown Rx pantoprazole [Protonix] 40 mg PO DAILY #30 tab 08/05/20 08/10/20 Unknown Rx aspirin [Aspir-81] See Rx Instructions .ROUTE .COMPLEX 08/10/20 08/10/20 Unknown History atorvastatin 10 mg PO QPM 08/10/20 08/10/20 Unknown History Allergies Allergy/AdvReac Type Severity Reaction Status Date / Time diclofenac [From Voltaren] Allergy Intermediate Wound Verified 08/10/20 09:23 metformin Allergy ADR-Diarrhe Verified 08/10/20 09:23 a mold Allergy Unknown Verified 08/10/20 09:23 FLU SHOT Allergy Unknown Uncoded 08/10/20 09:22 Current Medications Current Medications Generic Name Dose Route Start Last Admin Trade Name Freq PRN Reason Stop Dose Admin Albuterol/Ipratropium 3 ml 08/11/20 07:07 08/11/20 08:16 Ipratropium-Albuterol 3 Ml Neb INHALATION 3 ml Q6H.RESPIRATORY PRN Administration SHORTNESS OF BREATH Atorvastatin Calcium 80 mg 08/10/20 21:00 08/10/20 21:55 Atorvastatin 40 Mg Tablet PO 80 mg BEDTIME KIMBERLY Administration Carvedilol 3.125 mg 08/10/20 06:45 08/11/20 08:43 Carvedilol 3.125 Mg Tablet PO 3.125 mg BID KIMBERLY Administration Aztreonam 1,000 mg/ Sodium 50 mls @ 100 mls/hr 08/10/20 18:00 08/11/20 08:42 Chloride IV 100 mls/hr Q12H KIMBERLY Administration Cefepime HCl 1,000 mg/ Sodium 50 mls @ 100 mls/hr 08/11/20 07:00 08/11/20 08:41 Chloride IV 100 mls/hr Q24H KIMBERLY Administration Protocol Dexmedetomidine HCl 400 mcg/ 104 mls @ 0 mls/hr 08/10/20 18:00 08/11/20 08:39 Sodium Chloride IV 0.7 mcg/kg/hr .Q0M KIMBERLY 9.9 mls/hr Titration Protocol Per Protocol Propofol 1,000 mg in 100 mls @ 0 mls/hr 08/10/20 18:00 08/11/20 08:39 Diprivan IV 20 mcg/kg/min .Q0M KIMBERLY 6.5 mls/hr Titration Protocol Per Protocol Linezolid 600 mg 08/10/20 20:00 08/11/20 08:43 Linezolid 600 Mg Tablet PO 600 mg Q12H KIMBERLY Administration Pantoprazole Sodium 40 mg 08/10/20 06:00 08/11/20 05:00 Pantoprazole 40 Mg Sdv IVP Not Given Q12H KIMBERLY PFSH Acute PFSH: Medical History Acute respiratory failure Anemia CKD (chronic kidney disease) stage 3, GFR 30-59 ml/min Critical lower limb ischemia Diabetes mellitus Diabetic ulcer of heel Essential hypertension Hematemesis Hyperlipidemia NSTEMI (non-ST elevated myocardial infarction) Peripheral arterial disease Peripheral vascular disease Pneumonia Pulmonary edema Recent non-ST elevation myocardial infarction Surgical History Surgical history unknown Hysterectomy documented previously, but patient still appears to have her uterus on her CAT scan Family History Other Cancer Rheumatoid arthritis Social History Smoking and tobacco status: never smoked Alcohol intake: never Vitals/I&O/Wt Last Vital Signs Temp 99.5 F 08/11/20 00:15 Pulse 57 L 08/11/20 08:19 Resp 15 08/11/20 08:19 BP 122/53 08/11/20 07:30 Pulse Ox 97 08/11/20 08:17 08/10/20 08/11/20 08/11/20 22:59 06:59 14:59 Intake Total 50 / 276.312 25.776 / 302.088 68.25 / 68.25 Output Total 1000 / 1000 850 / 1850 Balance -950 / -723.688 -824.224 / -1547.912 68.25 / 68.25 Weight last 48 hrs Weight 120 lb Physical Exam Narrative: EXAM NARRATIVE: GENERAL: The patient is intubated and sedated HEENT: Moderate pallor, icterus or lymphadenopathy. The pupils are symmetrical oral cavity: There are no mucous membrane lesions. Funduscopic examination: Fundus is not visualized NECK: Trachea appears to be central. No masses noted. No JVD or thyromegaly appreciated. No carotid bruit. RESPIRATORY: Chest is symmetrical. No intercostals muscle retraction or any accessory muscle activation. There is no chest wall tenderness. Breath sounds are heard bilaterally. Scattered fine and coarse crackles bilaterally. Diminished intensity of breath sounds in the bases BREASTS: Deferred. HEART: The PMI could not be palpated. First and second heart sounds are normal. No S3 or S4. Short systolic murmur in the mitral area. No diastolic murmurs. ABDOMEN: No vessel pulsations or distention. No tenderness. No organomegaly appreciated. No abdominal bruit. Bowel sounds are normally heard. : Deferred. RECTAL: Deferred. LYMPHATIC: No lymphadenopathy noted in the neck or groin. EXTREMITIES: No severe edema or cyanosis. The peripheral pulses are nonpalpable in the feet. Patient has unhealing ulcers on the heel MUSCULOSKELETAL: No acute joint deformities or swelling SKIN: There are no significant scars or skin rash noted. NEUROPSYCHIATRIC: Patient is intubated and sedated. She moves all extremities. Urinary Catheter Management^: Mcfarland: Cath Placed During This Visit: yes Reason for Continuing Indwelling Catheter: Accurate Measurement of Urinary Output in Critically Ill Patients Urinary Catheter Date of Insertion: 08/09/20 Urinary Catheter Time of Insertion: 22:15 Data Micro: Micro: Microbiology 08/10/20 03:15 Blood Culture - Pr eliminary Blood NEGATIVE TO NISHI E 08/10/20 02:45 Blood Culture - Pr eliminary Blood NEGATIVE TO NISHI E 08/10/20 07:11 Bacterial Antigens - Final Urine,Clean Catch 08/10/20 07:11 Legionella Urinary Antigen - Final Urine Catheterize d Imaging^: Peripheral angiogram: My impression: In March 2020 patient underwent peripheral angiogram by Dr. Steele Conclusions Reason for peripheral angiogram/intervention: Critical limb ischemia of theleft footAbdominal aortogram: Abdominal aorta has luminal irregularity withoutsignificant aneurysm. Right renal artery has proximal 50% stenosis left renalartery is normal.Bilateral common iliac, external and internal iliac hasluminal irregularitiesBilateral common femoral artery has luminalirregularitiesBilateral profunda has luminal irregularitiesLeft SFA hasproximal to mid highly calcified tandem tight moderate to severe stenosis. Right SFA has mid tight highly calcified moderate to severe stenosis rest ofthe vessel luminal irregularitiesBilateral popliteal and tibioperoneal trunkhas luminal irregularitiesBilateral single-vessel runoff noted with chronicocclusion of peroneal and posterior tibial arteries. Echo: My impression: 07/25/2020 1. Small left ventricular cavity size. Moderate concentric left ventricular hypertrophy. Normal left ventricle systolic function. Left ventricular ejection fraction estimated at 55%. There is possible mild hypokinesis of apical inferior and apical septal katz. grade II diastolic dysfunction, moderat morenita elevated filling pressures. 2. Normal right ventricular size and systolic function. 3. Moderately increased left atrial size. 4. Mild mitral and tricuspid valve regurgitation. 5. Moderate aortic valve stenosis, mean gradient 17.1 mmHg, JOSE 1.1 cm squared (LVOT= 18 mm). Indexed aortic valve area of 0.7 cm squared/m squared. Dimensionless valve index of 0.46. Mild aortic valve regurgitation. 6. Right pleural effusion. 7. No prior similar studies to compare. CXR: Radiologist's impression: Today 08/11/2020 1. Cardiac enlargement with persistent suspected pulmonary edema and bilateral pleural effusions. 2. Perihilar and lower lung more focal airspace opacities could not exclude a component of pneumonia or atelectasis EKG^: EKG 1: My Interpretation: The EKG revealed normal sinus rhythm with features of old anteroseptal myocardial infarction. Not specific ST-T changes in the anterolateral leads. Left axis deviation. Some features of RVH. A&P Assessment and plan (1) Acute respiratory failure with hypoxia and hypercapnia: This could be multifactorial. Acute on chronic diastolic heart failure and possible pneumonia are the major contributing factors. Status: Acute (2) Recent non-ST elevation myocardial infarction: Patient had features of a non-ST elevation myocardial infarction, during the previous hospital admission. Her current troponin T is are negative for acute myocardial injury. She requires further cardiac work-up. But because of her worsening kidney function, anemia and the unstable respiratory status, we may hold off on this for the time being. Status: Acute (3) Acute kidney injury superimposed on chronic kidney disease: This is being evaluated and followed up by the nephrology service Status: Acute (4) Acute exacerbation of CHF (congestive heart failure): Patient may be treated with IV diuretics. The dose need to be titrated Status: Acute Qualifiers: Heart failure type: diastolic Qualified Code(s): I50.33 - Acute on chronic diastolic (congestive) heart failure (5) Peripheral arterial disease: Patient has no specific symptoms of peripheral arterial insufficiency at this point. Dr Steele was planning to do the peripheral angiogram prior to the last hospital admission. Because of the renal dysfunction, that was postponed. He may revisit this at a later time. Status: Acute Additional A&P Information Based on the patient's clinical progress, further recommendations will be made. We will try to optimize her medical treatment at this point. 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
--- NOTE | 2020-08-11 09:00 | PC.NURSE ---
0900 dose of 25mg hydralazine held. Nurse administered the 0900 50mg dose before it was discontinued and replaced with the 25 mg.
--- NOTE | 2020-08-11 09:21 | PC.CHAP ---
Pastoral Care Encounter/Spiritual Assessment Type of Contact [] Declined forge tender visit [] Patient/Family/Request visit [] Outpatient visit [] Follow-up visit [] Physician referral [] Code/Alert [] Routine visit [] Staff referral [] Actively dying [] Patient sleeping [] Family support [] [] Out of room [] Palliative care [] [] Receiving care in room [] Pre-surgical visit [] Trauma [] Long length of stay [x] ICU visit [] Other: Relational/Emotional Strength [] Patient feels connected with others/family/visitors/staff [] Distress [] Loneliness/isolation [] Abandonment Spirituality of Patient [] Person of Niyah [] Attends Lutheran of their Niyah [] Believes in Prayer [] Reads Bible or Jain materials [] There are Spiritual issues to be addressed Diagrammer Interventions [x] Prayer [] Active listening [] Non-anxious presence [] Spiritual/emotional support [] Crisis/trauma care [] Spiritual counseling [] Bereavement support [] Provided bereavement packet [] Provided Bible/devotional materials [] Provided toy/stuffed animal, coloring book to patient or family member [] Provided Communion [] Anointing/[place] [] Salvation [x] Completed spiritual assessment [] Other: Impact on Illness or Injury [] Angry [] Fearful [] Anxious [] Often cries [] Exhaustion [] Unable to work [] Unable to attend bahai [] Unable to walk/stand [] Unable to read [] Unable to drive [] Unable to eat/drink [] Unable to sleep [] Unable to be with family [] Patient intubated [] Other: Summary Time spent with patient
[2020-08-11 10:06] LABS: Bilirubin Urine Neg (Negative); Blood Urine 2+ (Negative); Glucose Urine UA Norm (Normal); Ketones Urine Negative (Negative); Leukocyte Esterase Urine 1+ (Negative); Nitrate Urine Negative (Negative); Protein Urine 1+ (Negative); Urine Appearance Clear (CLEAR); Urine Color Yellow (Yellow); Urobilinogen Urine Norm (Negative)
[2020-08-11 10:25] LABS: RBC Urine 15-25 /hpf (0-2); WBC Urine 25-40 /hpf (0-5)
[2020-08-11 10:26] LABS: Add Urine Culture? No; Bacteria Urine 1+ /hpf; Mucus Urine 1+ /hpf; Squamous Epithelial Cell Urine 25-40 /hpf (0-5)
[2020-08-11 10:43] LABS: Potassium, Radom Urine 51 mmol/L; Urine Random Chloride 23 mmol/L
[2020-08-11 10:47] LABS: Urine Random Sodium 19 mmol/L
[2020-08-11] MEDS: pantoprazole 40 mg SDV IVP (11:01)
--- NOTE | 2020-08-11 11:19 | PC.NURSE ---
Nurse redressed chronic heel ulcers. Used xeroform covered with a covaderm. Heel protectors applied.
[2020-08-11] MEDS: dexmedetomidine 400 MCG in sodium chloride 0.9% (100 ml) 100 ML 9.9 MCG IV (11:38)
[2020-08-11] MEDS: propofol 1,000 MG/100 ML INJ 16.3 MG IV (14:59)
--- NOTE | 2020-08-11 15:18 | P.PN_ITS ---
Subjective Subjective: Interval history: Elizabeth is sedated on the ventilator. Events of yesterday noted including her intubation. Medications: Reviewed: Yes Vitals/I&O/Wt Last Vital Signs Temp 100.7 F H 08/11/20 14:00 Pulse 52 L 08/11/20 15:01 Resp 16 08/11/20 15:17 BP 113/50 08/11/20 14:30 Pulse Ox 98 08/11/20 14:59 08/11/20 08/11/20 08/11/20 06:59 14:59 22:59 Intake Total 25.776 / 302.088 250.950 / 250.950 Output Total 850 / 1850 100 / 100 Balance -824.224 / -1547.912 150.950 / 150.950 Weight last 48 hrs Weight 54.431 kg Physical Exam Narrative: EXAM NARRATIVE: General exam no apparent distress HEENT. OG and endotracheal tube noted Cardiovascular regular rate and rhythm without murmur Lungs clear Abdomen is soft, positive bowel sounds Extremities no cyanosis clubbing . right heel ulcer is noted. 1 plus edema Urinary Catheter Management^: Mcfarland: Cath Placed During This Visit: yes Reason for Continuing Indwelling Catheter: Accurate Measurement of Urinary Output in Critically Ill Patients Urinary Catheter Date of Insertion: 08/09/20 Urinary Catheter Time of Insertion: 22:15 Data : 08/11/20 03:41 08/11/20 03:41 Micro: Microbiology 08/10/20 03:15 Blood Culture - Preliminary Blood NEGATIVE TO DATE 08/10/20 02:45 Blood Culture - Preliminary Blood NEGATIVE TO DATE A&P Assessment and plan (1) Acute exacerbation of CHF (congestive heart failure): Delay secondary to worsening renal function Consult cardiology Not candidate for extubation currently Suspect an element of cardiorenal syndrome Suspect diastolic heart failure. Last EF 55%, moderate aortic valve stenosis with valve area of 1.1, and grade 2 diastolic dysfunction Status: Acute Qualifiers: Heart failure type: diastolic Qualified Code(s): I50.33 - Acute on chronic diastolic (congestive) heart failure (2) Acute kidney injury superimposed on chronic kidney disease: Renal function has worsened Recent renal ultrasound no obstruction Avoid renal toxic medication Hold ARB Nephrology consultation Status: Acute (3) Sepsis: IV antibiotics consisting of linezolid and cefepime were initiated Discontinue aztreonam Await sputum and blood culture Procalcitonin was elevated at 0.25 Status: Acute (4) Hospital-acquired pneumonia: Antibiotics as noted above Concern of significant bilateral pleural effusions. CT chest ordered. Cannot rule out need for thoracentesis considering need for mechanical ventilation Status: Acute (5) Acute respiratory failure with hypoxia and hypercapnia: BiPAP. Wean off as tolerated. Status: Acute Additional A&P Information Acute hypoxic hypercarbic respiratory failure. Secondary to pneumonia and CHF exacerbation Elevated troponin. Secondary to acute systolic heart failure as well as renal dysfunction. No significant delta. I do not believe she needs full anticoagulation at this time. Edema. Duplex pending. History of anemia and recent transfusion. Holding heparin currently secondary to significant GI bleed previous hospital stay. Peripheral vascular disease. Keep pressure off right heel History of chronic blood loss anemia. Recent history of EGD showing gastritis and duodenitis. Continue Protonix. History of hypertension Full code DVT prophylaxis with heparin subcutaneous Attestations Medical Necessity Statement*: Needs continued hospitalization secondary to respiratory failure requiring mechanical ventilation Critical Care Time: 31 minutes spent in critical care at bedside secondary to respiratory failure requiring mechanical ventilation, acute kidney failure, pneumonia requiring IV antibiotics with high risk for and/or decompensation Coding Level of Care Code Acute [place] Attacher for Chg Fwd Diagnoses Acute exacerbation of CHF (congestive heart failure) I50.33 Heart failure type: diastolic Acute kidney injury superimposed on chronic kidney disease N17.9; N18.9 Sepsis A41.9 Hospital-acquired pneumonia J18.9; Y95 Acute respiratory failure with hypoxia and hypercapnia J96.01; J96.02
[2020-08-11] MEDS: morphine 4 mg/mL SDV 1 mL 1 MG IVP (15:21)
[2020-08-11] MEDS: acetaminophen 325 mg Tablet 650 MG PO (15:34)
--- NOTE | 2020-08-11 15:40 | PC.NURSE ---
Patient has a fever of 100.7. ALerted Dr macias and received acetaminophen order.
[2020-08-11] MEDS: hyDRALAzine 50 mg Tablet 25 MG PO (16:26)
--- NOTE | 2020-08-11 17:48 | PC.NURSE ---
Patient taken for a chest CT. Trip was uneventful. THe patient's OG tube was pulled further out during tansport. Nurse advanced tube again, auscultate stomach sounds, and was able to aspirate stomach contents. X ray ordered to reverify placement.
--- NOTE | 2020-08-11 17:50 | XRR_ITS ---
PROCEDURE INFORMATION: Exam: XR Chest, 1 View Exam date and time: 08/11/2020 6:03 PM Age: 75 years old Clinical indication: Device placement; Other: Og placement; Additional info: Verify og tube placement TECHNIQUE: Imaging protocol: XR of the chest Views: 1 view. Total images: 1 COMPARISON: CT chest wo con [id number] 08/11/2020 4:40 PM FINDINGS: Tubes, catheters and devices: Nasogastric tube tip below the diaphragm tip at the level of the distal gastric antrum. Endotracheal tube tip above the salo. EKG leads. Lungs: Unremarkable. No consolidation. Pleural space: Bilateral pleural effusions, right greater than left. Heart/Mediastinum: Cardiomegaly with arteriosclerosis. Bones/joints: Unremarkable for age. Gastrointestinal tract: Nonobstructive bowel pattern. Other findings: Heavy body habitus. XR/XR chest 1V portable [id number] IMPRESSION: 1. Nasogastric tube tip below the diaphragm tip at the level of the distal gastric antrum. 2. Endotracheal tube tip above the salo.
--- NOTE | 2020-08-11 17:51 | PC.NURSE ---
Shift Summary - Uneventful shift. Patient rested in bed, and was taken for a CT scan. Precedex for sedation was paused due to bradycardia. Dr notified and was advised to used porpofol and PRN morphine for sedation. OG tube became dislodged and it was replaced and a chest Xray to confirm placement was ordered at time of this note.
[2020-08-11] MEDS: linezolid premix 600 MG/300 ML PREMIX 300 MG IV (21:25)
[2020-08-11 22:35] LABS: Creatine Phosphokinase 24 U/L (26-192)
[2020-08-11 22:55] LABS: Vancomycin Random < 4.0 ug/mL (20.0-40.0)
[2020-08-12] VITALS (115 sets, daily range): BP systolic 113–157; BP diastolic 47–100; PULSE 45–76; RESP 14–28; TEMP 36.1–36.9; O2SAT 85–100
--- NOTE | 2020-08-12 01:59 | PC.NURSE ---
2100 MEDS 2100 medications delayed due to chest xray confirming OGT placement delayed. Radiology called and they stated the CXR had not been sent to [facility]. Sent to [facility] and resulted, no changes needed.
[2020-08-12] MEDS: atorvastatin 40 mg Tablet 80 MG PO ×2 (02:16→20:11)
[2020-08-12] MEDS: pantoprazole 40 mg SDV IVP ×2 (02:16→18:25)
[2020-08-12] MEDS: ipratropium-albuterol 3 mL Neb INHALATION ×4 (02:25→19:33)
--- NOTE | 2020-08-12 03:46 | PC.NURSE ---
ASSUMING CARE Patient resting in bed and appears comfortable. Patient on 30 mcg/kg/min of propofol. CXR from OGT replacement from day shift nurse not reported yet. Patients HR in the low 50s to high 40s. CMV mode on ventilator, FiO2 at 40%, rate of 14, TV 400 and PEEP of 8.
[2020-08-12 04:25] LABS: Basophils # 0.1 10^3/uL (0.0-0.1); Basophils % 1.2 %; Eosinophils # 0.7 10^3/uL (0.0-0.8); Eosinophils % 6.3 %; Hematocrit 27.4 % (37.0-47.0); Hemoglobin 8.5 g/dL (11.5-15.3); Lymphocytes # 1.7 10^3/uL (0.8-4.8); Lymphocytes % 16.3 %; Mean Corpuscular Hemoglobin 28.3 pg (28.0-34.0); Mean Corpuscular Volume 91.3 fL (81-99); Mean Platelet Volume 11.1 fL (7.4-10.4); Monocytes # 0.8 10^3/uL (0.2-0.9); Neutrophils # 6.94 10^3/uL (1.8-7.7); Neutrophils % 67.8 %; Nucleated Red Blood Cells % 0 %; Platelet Count 215 10^3/cmm (130-400); Red Cell Distribution Width 15.3 % (12.1-15.1); White Blood Count 10.2 10^3/uL (4.0-10.0)
[2020-08-12 05:06] LABS: Alanine Aminotransferase 9 U/L (0-33); Albumin Level 2.7 g/dL (3.5-5.2); Alkaline Phosphatase 57 IU/L (35-105); Anion Gap 17.9 (5-19); Aspartate Amino Transferase 17 U/L (0-32); Blood Urea Nitrogen 50 mg/dL (8-23); Calcium 8.2 mg/dL (8.5-10.5); Carbon Dioxide 18 mmol/L (22-29); Chloride 100 mmol/L (98-107); Globulin 2.9 g/dL (1.3-4.6); Glucose 81 mg/dL (65-115); Iron 15 ug/dL (37-145); Magnesium 1.9 mg/dL (1.7-2.3); Osmolality Calculated 286 mOsm/kg (285-295); Percent Saturation 11.7 % (20-50); Phosphorus 6.1 mg/dL (2.5-4.5); Potassium 3.9 mmol/L (3.5-5.1); Sodium 132 mmol/L (136-145); Total Bilirubin 0.3 mg/dL (0.15-1.2); Total Iron Binding Capacity 128 mcg/dl; Total Protein 5.6 g/dL (6.6-8.7); Unsaturated Iron Binding 113 ug/dL (112-347)
[2020-08-12] MEDS: cefepime 1,000 MG in sodium chloride 0.9% (plus) 50 ML 100 MG IV (06:08)
--- NOTE | 2020-08-12 06:27 | PC.NURSE ---
COREG Coreg held last night due to sinus bradycardia. Patient not symptomatic.
--- NOTE | 2020-08-12 06:27 | PC.NURSE ---
SHIFT SUMMARY Patient has been alert and oriented this shift. Able to follow commands, lift all extremities and can write needs on paper. Patients propofol currently paused, patient calm and pleasant. Patient smiling and joking with nurse. Cefepime hung, HR 52 currently and oxygen has been upper 90s this shift.
--- NOTE | 2020-08-12 07:23 | PM.PN ---
Subjective Subjective: Interval history: sedated, on vent in ICU Medications: Reviewed: Yes Medication Review Details: Current Medications Acetaminophen (Acetaminophen 325 Mg Tablet) 650 mg PO Q6H PRN PRN Reason: FEVER Last Admin: 08/11/20 15:34 Dose: 650 mg Documented by: Albuterol/Ipratropium (Ipratropium-Albuterol 3 Ml Neb) 3 ml INHALATION Q6H.RESPIRATORY PRN PRN Reason: SHORTNESS OF BREATH Last Admin: 08/12/20 02:25 Dose: 3 ml Documented by: Atorvastatin Calcium (Atorvastatin 40 Mg Tablet) 80 mg PO BEDTIME KIMBERLY Last Admin: 08/12/20 02:16 Dose: 80 mg Documented by: Carvedilol (Carvedilol 3.125 Mg Tablet) 3.125 mg PO BID [facility] Last Admin: 08/11/20 19:25 Dose: Not Given Documented by: Hydralazine HCl (Hydralazine 10 Mg Tablet) 10 mg PO TID KIMBERLY Cefepime HCl 1,000 mg/ Sodium (Chloride) 50 mls @ 100 mls/hr IV Q24H [facility]; Protocol Last Infusion: 08/12/20 06:38 Dose: Infused Documented by: Dexmedetomidine HCl 400 mcg/ (Sodium Chloride) 104 mls @ 0 mls/hr IV .Q0M [facility]; Protocol Last Titration: 08/11/20 14:36 Dose: 0 mcg/kg/hr, 0 mls/hr Documented by: Propofol (Diprivan) 1,000 mg in 100 mls @ 0 mls/hr IV .Q0M [facility]; Protocol Last Titration: 08/12/20 06:33 Dose: Infused Documented by: Linezolid (Zyvox Premix) 600 mg in 300 mls @ 300 mls/hr IV Q12H [facility] Last Infusion: 08/11/20 22:25 Dose: Infused Documented by: Sodium Chloride (Sodium Chloride 0.9%) 1,000 mls @ 100 mls/hr IV .Q10H [facility] Morphine Sulfate (Morphine 4 Mg/Ml Sdv 1 Ml) 1 mg IVP Q2H PRN PRN Reason: SEVERE PAIN Last Admin: 08/11/20 15:21 Dose: 1 mg Documented by: Vitals/I&O/Wt Last Vital Signs Temp 97.2 F L 08/12/20 06:30 Pulse 48 L 08/12/20 07:04 Resp 18 08/12/20 05:40 BP 138/53 08/12/20 06:30 Pulse Ox 96 08/12/20 06:30 08/11/20 08/12/20 08/12/20 22:59 06:59 14:59 Intake Total 327.196 / 610.474 122.804 / 733.278 Output Total 100 / 200 225 / 425 Balance 227.196 / 410.474 -102.196 / 308.278 Weight last 48 hrs Weight 65.453 kg Physical Exam Narrative: EXAM NARRATIVE: intubated vent fio2 of 40%, TV 400, PEEP 8, RR 14 - uop poor heent- nca/t, eomi neck supple lungs per RN- good air movement heart - reg, +HSM abd soft, nt, +BS ext 1+ edema neuro- sedated Urinary Catheter Management^: Mcfarland: Cath Placed During This Visit: yes Reason for Continuing Indwelling Catheter: Accurate Measurement of Urinary Output in Critically Ill Patients Urinary Catheter Date of Insertion: 08/09/20 Urinary Catheter Time of Insertion: 22:15 Data : 08/12/20 03:55 08/12/20 03:55 Micro: Microbiology 08/10/20 17:55 Gram Stain - Final Sputum - Endotracheal Tube Aspirate 08/10/20 03:15 Blood Culture - Preliminary Blood NEGATIVE TO DATE 08/10/20 02:45 Blood Culture - Preliminary Blood NEGATIVE TO DATE A&P Additional A&P Information 75 yr old female PVD/ CAD, diastolic dysfunction, recent GI bleed- s/p 7 u prbc tx, diastolic dysfunction, moderate . 1.renal dysfunction- cr was normal till March 2020. then slowly rising and improving. -in Jul 2020- Gerard- cr to 3.8 and improved to 1.9 -recurrent GERARD- likely CRS vs ATN from dropping her high BP and lasix -recent SPEP and DALE and Renal us normal -agree w/ ivf and monitor renal fxn and uop -repeat ua -phosphorus - 6.1- if eats-use a binder 2. PNA -renal dose abx 3. Acute on chronic diastolic dysfunction- consider thoracentesis. Cardiology has recommeneded a stress test and full cardiac eval- pt is high risk for SHAILA if needs angiogram 4. anemia- recent Presumed GI bleed from gastritis/ duodenitis- Q further eval -iron sat 11.7%. recent ferritin 285- consider iv iron 5. resp alakalosis 6.hyponatremia from , diastolic CHF and GERARD/ lasix discussed w/ RN seen w/ project finance analyst Attestations Medical Necessity Statement*: gerard, , VDRF Time Spent in Patient Care: 16 - 35 minutes Coding Level of Care Code Acute Stoker Mechanic for Janice Long
[2020-08-12] MEDS: sodium chloride 0.9% 1,000 ML 100 ML IV ×2 (07:42→20:18)
[2020-08-12] MEDS: hyDRALAzine 10 mg Tablet PO ×3 (08:35→20:11)
[2020-08-12] MEDS: linezolid premix 600 MG/300 ML PREMIX 300 MG IV ×2 (08:35→20:13)
[2020-08-12] MEDS: carvedilol 3.125 mg Tablet PO ×2 (08:35→18:25)
[2020-08-12] MEDS: morphine 4 mg/mL SDV 1 mL 1 MG IVP ×3 (08:36→20:14)
--- NOTE | 2020-08-12 11:50 | P.PN_ITS ---
Subjective Subjective: Interval history: Patient awake and interactive, but comfortable on the ventilator. She writes a question to me am I going to ? Medications: Reviewed: Yes Vitals/I&O/Wt Last Vital Signs Temp 97.0 F L 08/12/20 11:00 Pulse 56 L 08/12/20 11:00 Resp 20 H 08/12/20 11:44 BP 132/51 08/12/20 11:00 Pulse Ox 96 08/12/20 11:00 08/11/20 08/12/20 08/12/20 22:59 06:59 14:59 Intake Total 327.196 / 610.474 122.804 / 733.278 Output Total 100 / 200 225 / 425 100 / 100 Balance 227.196 / 410.474 -102.196 / 308.278 -100 / -100 Weight last 48 hrs Weight 65.453 kg Physical Exam Narrative: EXAM NARRATIVE: General exam no apparent distress, interactive HEENT. OG and endotracheal tube noted Cardiovascular regular rate and rhythm without murmur Lungs clear Abdomen is soft, positive bowel sounds Extremities no cyanosis clubbing . right heel ulcer is noted. 1 plus edema Urinary Catheter Management^: Mcfarland: Cath Placed During This Visit: yes Reason for Continuing Indwelling Catheter: Accurate Measurement of Urinary Output in Critically Ill Patients Urinary Catheter Date of Insertion: 08/09/20 Urinary Catheter Time of Insertion: 22:15 Data : 08/12/20 03:55 08/12/20 03:55 Micro: Microbiology 08/10/20 17:55 Gram Stain - Final Sputum - Endotracheal Tube Aspirate Sputum Culture - Preliminary Other data: Chest x-ray reviewed by me and demonstrates right pleural effusion, large and small left pleural effusion. Cardiomegaly. Lines and endotracheal tube okay. A&P Assessment and plan (1) Acute exacerbation of CHF (congestive heart failure): Appreciate cardiology consultation Diuresis discontinued secondary to worsening renal function Very likely her bilateral pleural effusions are secondary to her heart failure. As IV diuresis is not possible, and these may contribute to her respiratory failure I have asked pulmonary critical care to evaluate her. Suspect an element of cardiorenal syndrome Suspect diastolic heart failure. Last EF 55%, moderate aortic valve stenosis with valve area of 1.1, and grade 2 diastolic dysfunction Status: Acute Qualifiers: Heart failure type: diastolic Qualified Code(s): I50.33 - Acute on chronic diastolic (congestive) heart failure (2) Acute kidney injury superimposed on chronic kidney disease: Renal function has worsened Recent renal ultrasound no obstruction Avoid renal toxic medication Hold ARB Nephrology consultation appreciated IV fluids added back today Status: Acute (3) Sepsis: Continue linezolid and cefepime Await sputum and blood culture Procalcitonin was elevated at 0.25 Check MRSA PCR Status: Acute (4) Hospital-acquired pneumonia: Antibiotics as noted above Concern of significant bilateral pleural effusions. CT chest ordered. Cannot rule out need for thoracentesis considering need for mechanical ventilation. Critical care consulted Status: Acute (5) Acute respiratory failure with hypoxia and hypercapnia: BiPAP. Wean off as tolerated. Status: Acute Additional A&P Information Acute hypoxic hypercarbic respiratory failure. Secondary to pneumonia and CHF exacerbation Elevated troponin. Secondary to acute systolic heart failure as well as renal dysfunction. No significant delta. I do not believe she needs full anti coagulation at this time. Edema. Venous duplex negative for DVT History of anemia and recent transfusion. Holding heparin currently secondary to significant GI bleed previous hospital stay, significant anemia. Peripheral vascular disease. Keep pressure off right heel History of chronic blood loss anemia. Recent history of EGD showing gastritis and duodenitis. Continue Protonix. This has been changed to IV every 24 hours History of hypertension Full code DVT prophylaxis with heparin subcutaneous Attestations Medical Necessity Statement*: Needs continued hospital stay secondary to respiratory failure requiring mechanical ventilation Critical Care Time: 31 minutes spent in critical care time at bedside interviewing patient, examining patient, discussing with subspecialists in this patient with respiratory failure, renal failure, severe anemia, recent GI bleeding, pneumonia with high risk for and/or decompensation Coding Level of Care Code Acute Electronic Equipment Installer for Chg Fwd Diagnoses Acute exacerbation of CHF (congestive heart failure) I50.33 Heart failure type: diastolic Acute kidney injury superimposed on chronic kidney disease N17.9; N18.9 Sepsis A41.9 Hospital-acquired pneumonia J18.9; Y95 Acute respiratory failure with hypoxia and hypercapnia J96.01; J96.02
--- NOTE | 2020-08-12 18:24 | PM.ACPR ---
Procedure/Consent Time out: Time Out Performed: Yes Consent: Consent for Procedure: Consent obtained from patient Procedure Narrative: Pulmonary & Critical Care Medicine Procedure - Thoracentesis Procedure: Right side thoracentesis Indication: Right-sided right-sided pleural effusion Joggle Press Operator(s): Elio Wright MD Consent: Signed and placed in chart Anesthesia: 10 cc 1% lidocaine without epinephrine Description: Right pleural effusion was localized using ultrasound guidance and the site was marked accordingly. After chlorhexidine skin prep, area was draped in a sterile manner. 1% lidocaine was used for local anesthesia. Thoracentesis catheter was then inserted into the pleural space with aspiration of 1100 cc cc of pleural fluid. Appearance was straw-colored.. Ultrasound guidance used: Yes. Image saved to ultrasound machine yes EBL: 5 to 10 cc Complications: None PCXR: pending Acute Procedures Epistaxis Control: Time out performed: Yes
[2020-08-12] MEDS: lidocaine 1% INJ 20 mL INJECTION (18:25)
--- NOTE | 2020-08-12 18:25 | XR_ITS ---
WS: [id number] Portable AP upright chest, 08/12/2020 Clinical Data: Post thoracentesis Comparison: Portable chest, 08/11/2020. Findings: The right pleural effusion has been reduced. No pneumothorax is seen. There is still a mode rate left pleural effusion. The heart remains enlarged. The endotracheal tube, nasogastric tube and m onitor leads remain in position. There is a dextroscoliosis. XR/XR chest 1V portable [id number] Impression: 1. Decrease in right pleural effusion. 2. No change in cardiomegaly and left effusion. 3. No change in tube positions.
--- NOTE | 2020-08-12 18:27 | PM.CONSULT ---
Providers/Reason For Consult Consulting Physican/Specialty*: Elio Wright MD / Pulmonary Critical care Reason for Consult*: Bilateral pleural effusions Attending Physician: Yossi Mcgee MD Primary Care Provider: Crystal Olivia MD History of Present Illness History of Present Illness Elizabeth Lima is a 75 year old female with PMH PAD, DM, NSTEMI, diastolic CHF, stage III CKD, hospital-acquired pneumonia is admitted to hospital through the emergency room where she presented with respiratory distress. This patient was recently discharged from the hospital after a prolonged hospital stay. After 2 days, she started having shortness of breath, gradually worsened with change in mentation, and was brought to the hospital. This patient is known to have multiple medical problems. She was admitted to the hospital on 25 of July with features of an acute pulmonary edema, accelerated hypertension, GERARD, and developed a GI bleed during the hospital stay. She had a total of 7 units of blood transfusion. Her hospital course was complicated with pneumonia and a non-ST elevation myocardial infarction. After prolonged hospital stay, she was discharged home on . The plan was to consider further cardiac work-up and also possible peripheral angiogram, once the kidney function is stabilized. Currently the patient is intubated and sedated., Labs revealed worsening renal function. And imaging shows features of congestive heart failure and possible pneumonia. She is being treated with IV antibiotics and renally needed diuretics and we have worsening renal failure and started on NS at 100 mL's/ hour. Her LV ejection fraction was normal by echocardiogram. Based on the echocardiogram, on 25 July, she was found to have moderate aortic valve stenosis and grade 2 left ventricular diastolic dysfunction. Pulmonary consult called for help with extubation in a patient with significant bilateral pleural effusions with worsening renal functions due to cardiorenal syndrome and diastolic heart failure patient. Patient seen at bedside. Awake alert and following commands. Tolerating breathing trial. Review of Systems General: Reports: 10 or more systems reviewed and unremarkable except in HPI and below and ROS unobtainable due to endotracheal tube Meds/Allergies Home Medications and Allergies Home Medications Medication Instructions Recorded Confirmed Last Taken Type gabapentin 200 mg PO BID 07/23/20 08/10/20 07/23/20 10:30 History carvedilol [Coreg] 3.125 mg PO BID #60 tab 07/24/20 08/10/20 Unknown Rx valsartan 160 mg PO DAILY 07/25/20 08/10/20 Unknown History amlodipine 10 mg PO DAILY #30 tab 08/05/20 08/10/20 Unknown Rx hydralazine 50 mg PO TID #90 tab 08/05/20 08/10/20 Unknown Rx pantoprazole [Protonix] 40 mg PO DAILY #30 tab 08/05/20 08/10/20 Unknown Rx aspirin [Aspir-81] See Rx Instructions .ROUTE .COMPLEX 08/10/20 08/10/20 Unknown History atorvastatin 10 mg PO QPM 08/10/20 08/10/20 Unknown History Allergies Allergy/AdvReac Type Severity Reaction Status Date / Time diclofenac [From Voltaren] Allergy Intermediate Wound Verified 08/10/20 09:23 metformin Allergy ADR-Diarrhe Verified 08/10/20 09:23 a mold Allergy Unknown Verified 08/10/20 09:23 FLU SHOT Allergy Unknown Uncoded 08/10/20 09:22 Current Medications Current Medications Generic Name Dose Route Start Last Admin Trade Name Freq PRN Reason Stop Dose Admin Acetaminophen 650 mg 08/11/20 15:25 08/11/20 15:34 Acetaminophen 325 Mg Tablet PO 650 mg Q6H PRN Administration FEVER Albuterol/Ipratropium 3 ml 08/11/20 07:07 08/12/20 15:34 Ipratropium-Albuterol 3 Ml Neb INHALATION 3 ml Q6H.RESPIRATORY PRN Administration SHORTNESS OF BREATH Atorvastatin Calcium 80 mg 08/10/20 21:00 08/12/20 02:16 Atorvastatin 40 Mg Tablet PO 80 mg BEDTIME KIMBERLY Administration Carvedilol 3.125 mg 08/10/20 06:45 08/12/20 18:25 Carvedilol 3.125 Mg Tablet PO 3.125 mg BID KIMBERLY Administration Hydralazine HCl 10 mg 08/12/20 09:00 08/12/20 18:24 Hydralazine 10 Mg Tablet PO 10 mg TID KIMBERLY Administration Cefepime HCl 1,000 mg/ Sodium 50 mls @ 100 mls/hr 08/11/20 07:00 08/12/20 06:38 Chloride IV Infused Q24H KIMBERLY Infusion Protocol Dexmedetomidine HCl 400 mcg/ 104 mls @ 0 mls/hr 08/10/20 18:00 08/11/20 14:36 Sodium Chloride IV 0 mcg/kg/hr .Q0M KIMBERLY 0 mls/hr Titration Protocol Per Protocol Propofol 1,000 mg in 100 mls @ 0 mls/hr 08/10/20 18:00 08/12/20 06:33 Diprivan IV Infused .Q0M KIMBERLY Titration Protocol Per Protocol Linezolid 600 mg in 300 mls @ 300 mls/hr 08/11/20 20:30 08/12/20 08:35 Zyvox Premix IV 300 mls/hr Q12H KIMBERLY Administration Sodium Chloride 1,000 mls @ 100 mls/hr 08/12/20 06:45 08/12/20 07:42 Sodium Chloride 0.9% IV 100 mls/hr .Q10H KIMBERLY Administration Morphine Sulfate 1 mg 08/10/20 17:53 08/12/20 18:25 Morphine 4 Mg/Ml Sdv 1 Ml IVP 1 mg Q2H PRN Administration SEVERE PAIN Pantoprazole Sodium 40 mg 08/12/20 18:00 08/12/20 18:25 Pantoprazole 40 Mg Sdv IVP 40 mg Q24H KIMBERLY Administration PFSH Acute PFSH: Medical History Acute respiratory failure Anemia CKD (chronic kidney disease) stage 3, GFR 30-59 ml/min Critical lower limb ischemia Diabetes mellitus Diabetic ulcer of heel Essential hypertension Hematemesis Hyperlipidemia NSTEMI (non-ST elevated myocardial infarction) Peripheral arterial disease Peripheral vascular disease Pneumonia Pulmonary edema Recent non-ST elevation myocardial infarction Surgical History Surgical history unknown Hysterectomy documented previously, but patient still appears to have her uterus on her CAT scan Family History Other Cancer Rheumatoid arthritis Social History Smoking and tobacco status: never smoked Alcohol intake: never Vitals/I&O/Wt Last Vital Signs Temp 97.0 F L 08/12/20 11:00 Pulse 62 08/12/20 17:00 Resp 22 H 08/12/20 18:25 BP 139/57 08/12/20 17:00 Pulse Ox 96 08/12/20 17:00 08/12/20 08/12/20 08/12/20 06:59 14:59 22:59 Intake Total 122.804 / 733.278 Output Total 225 / 425 200 / 200 Balance -102.196 / 308.278 -200 / -200 Weight last 48 hrs Weight 144 lb 4.8 oz Physical Exam Narrative: EXAM NARRATIVE: PHYSICAL EXAM: General: lying in bed, awake alert and following commands, ET tube connected to ventilator HEENT:NCAT, PERRLA, EOMI Neck: Supple Lungs: Reduced breath sounds bilateral lower lungs Heart: s1/s2, RRR Abd: soft, NT, ND, BS + Normoactive Extremities: No edema; bilateral heel decubiti covered with pressure dressings SOCIAL AND POLITICAL STUDIES PROFESSOR: sedated and limited SOCIAL AND POLITICAL STUDIES PROFESSOR exam possible. SKIN: no rash Urinary Catheter Management^: Mcfarland: Cath Placed During This Visit: yes Reason for Continuing Indwelling Catheter: Accurate Measurement of Urinary Output in Critically Ill Patients Urinary Catheter Date of Insertion: 08/09/20 Urinary Catheter Time of Insertion: 22:15 Data Micro: Micro: Microbiology 08/10/20 17:55 Gram Stain - Final Sputum - Endotrac heal Tube Aspirate Sputum Culture - P reliminary Other Data: Other data: Reviewed imaging, EKG and all of the labs in Multichannel A&P Assessment and plan (1) Acute exacerbation of CHF (congestive heart failure): Status: Acute Qualifiers: Heart failure type: diastolic Qualified Code(s): I50.33 - Acute on chronic diastolic (congestive) heart failure (2) Acute kidney injury superimposed on chronic kidney disease: Status: Acute (3) Hospital-acquired pneumonia: Status: Acute (4) Acute respiratory failure with hypoxia and hypercapnia: Status: Acute (5) Recent non-ST elevation myocardial infarction: Status: Acute (6) Bilateral pleural effusion: Status: Acute # Acute respiratory failure likely secondary to CHF exacerbation #Worsening renal failure in patient with CKD stage III -secondary to cardiorenal #Bilateral pleural effusions due to cardiac and renal failure-less likely infectious -Currently Lasix held due to worsening renal functions and patient started on 100 mL/h IV hydration to treat prerenal component of GERARD -Strictly monitor I&O and if decreased urine output recommended to give Lasix 40 mg challenge -S/p right pleural effusion drained 1100 cc straw-colored fluid-transudative in nature; post procedure chest x-ray showed improved right-sided lung volumes. -Patient is tolerating breathing trial and mentation is good-proceed with extubation tomorrow morning; I will consider draining left-sided pleural effusion tomorrow to facilitate better ventilation -Other than 1 spike 100.7; patient remained afebrile with normal WBC and procalcitonin?transudate of effusion-recommend to DC antibiotics -If patient continues to spike fevers/leukocytosis-look for other infectious sources like heel decubiti -Both renal and cardiology is following the case Recommendations conveyed to hospitalist covering the case Consult Attestations Medical Necessity Statement: Patient is intubated and being evaluated for extubation Time Spent in Patient Care: Greater than 35 minutes (>than 50% of time spent in counselling and/or direct pt care on unit). Critical Care Time: Critical Care Time (min): 45 Coding Level of Care Code New Pt Acute All Around Presser for Desting Fwd Patient Type New History Comprehensive Exam Comprehensive Medical Decision Making High Complexity Diagnoses Acute exacerbation of CHF (congestive heart failure) I50.33 Heart failure type: diastolic Acute kidney injury superimposed on chronic kidney disease N17.9; N18.9 Hospital-acquired pneumonia J18.9; Y95 Acute respiratory failure with hypoxia and hypercapnia J96.01; J96.02 Recent non-ST elevation myocardial infarction Bilateral pleural effusion J90 Time Spent (min) 45
--- NOTE | 2020-08-12 19:36 | P.PN_ITS ---
Subjective Subjective: Interval history: Patient is awake and oriented she is intubated she is status post pleurocentesis. This is her third admission in the last few days she is one of my patient since I was on vacation Dr. Dickson and Dr. Bee to care for. Currently she is better and steadily improving. Creatinine though is worsened Medications: Reviewed: Yes Medication Review Details: Current Medications Acetaminophen (Acetaminophen 325 Mg Tablet) 650 mg PO Q6H PRN PRN Reason: FEVER Last Admin: 08/11/20 15:34 Dose: 650 mg Documented by: Albuterol/Ipratropium (Ipratropium-Albuterol 3 Ml Neb) 3 ml INHALATION Q6H.RESPIRATORY PRN PRN Reason: SHORTNESS OF BREATH Last Admin: 08/12/20 02:25 Dose: 3 ml Documented by: Atorvastatin Calcium (Atorvastatin 40 Mg Tablet) 80 mg PO BEDTIME KIMBERLY Last Admin: 08/12/20 02:16 Dose: 80 mg Documented by: Carvedilol (Carvedilol 3.125 Mg Tablet) 3.125 mg PO BID [facility] Last Admin: 08/11/20 19:25 Dose: Not Given Documented by: Hydralazine HCl (Hydralazine 10 Mg Tablet) 10 mg PO TID KIMBERLY Cefepime HCl 1,000 mg/ Sodium (Chloride) 50 mls @ 100 mls/hr IV Q24H [facility]; Protocol Last Infusion: 08/12/20 06:38 Dose: Infused Documented by: Dexmedetomidine HCl 400 mcg/ (Sodium Chloride) 104 mls @ 0 mls/hr IV .Q0M [facility]; Protocol Last Titration: 08/11/20 14:36 Dose: 0 mcg/kg/hr, 0 mls/hr Documented by: Propofol (Diprivan) 1,000 mg in 100 mls @ 0 mls/hr IV .Q0M KIMBERLY; Protocol Last Titration: 08/12/20 06:33 Dose: Infused Documented by: Linezolid (Zyvox Premix) 600 mg in 300 mls @ 300 mls/hr IV Q12H KIMBERLY Last Infusion: 08/11/20 22:25 Dose: Infused Documented by: Sodium Chloride (Sodium Chloride 0.9%) 1,000 mls @ 100 mls/hr IV .Q10H KIMBERLY Morphine Sulfate (Morphine 4 Mg/Ml Sdv 1 Ml) 1 mg IVP Q2H PRN PRN Reason: SEVERE PAIN Last Admin: 08/11/20 15:21 Dose: 1 mg Documented by: Vitals/I&O/Wt Last Vital Signs Temp 97.0 F L 08/12/20 11:00 Pulse 56 L 08/12/20 19:34 Resp 14 08/12/20 19:34 BP 133/59 08/12/20 19:00 Pulse Ox 98 08/12/20 19:34 08/12/20 08/12/20 08/12/20 06:59 14:59 22:59 Intake Total 122.804 / 733.278 Output Total 225 / 425 200 / 200 Balance -102.196 / 308.278 -200 / -200 Weight last 48 hrs Weight 144 lb 4.8 oz Physical Exam Narrative: EXAM NARRATIVE: GENERAL: Patient is alert, awake and oriented x3. Continues to be intubated and distress NECK: No jugular vein distension. HEENT: No cyanosis. No icterus. No pallor. HEART: Regular S1 and S2. No murmur, rub or gallop. LUNGS: Decreased breath sound bilaterally. ABDOMEN: Soft, nontender and nondistended. Positive bowel sounds. No guarding, rebound or tenderness. CENTRAL NERVOUS SYSTEM: Grossly nonfocal. EXTREMITIES: Lower extremities without edema bilaterally. Urinary Catheter Management^: Mcfarland: Cath Placed During This Visit: yes Reason for Continuing Indwelling Catheter: Accurate Measurement of Urinary Output in Critically Ill Patients Urinary Catheter Date of Insertion: 08/09/20 Urinary Catheter Time of Insertion: 22:15 Data : 08/12/20 03:55 08/12/20 03:55 Micro: Microbiology 08/10/20 17:55 Gram Stain - Final Sputum - Endotracheal Tube Aspirate Sputum Culture - Preliminary A&P Assessment and plan (1) Acute respiratory failure with hypoxia and hypercapnia: Combination of CHF exacerbation possible worsening of aortic valve stenosis and valvulopathy along with pneumonia. I will repeat echocardiogram to assess LV function and aortic stenosis. Status: Acute (2) Recent non-ST elevation myocardial infarction: At the moment we will treat her medically. She had non-ST elevation [place] few days ago. Currently stable. Will assess LV function with echocardiogram. Status: Acute (3) Acute kidney injury superimposed on chronic kidney disease: As per nephrology Status: Acute (4) Acute exacerbation of CHF (congestive heart failure): Patient may be treated with IV diuretics. The dose need to be titrated Status: Acute Qualifiers: Heart failure type: diastolic Qualified Code(s): I50.33 - Acute on chronic diastolic (congestive) heart failure (5) Peripheral arterial disease: Currently stable at the moment we will treat medically no intention to take Corporation Lawyer for now Status: Acute Additional A&P Information Based on the patient's clinical progress, further recommendations will be made. We will try to optimize her medical treatment at this point. Thank you for the opportunity to evaluate this patient make these recommendations Attestations Medical Necessity Statement*: Requires continuation hospitalization for above defined care. Coding Level of Care Code Established Pt Acute Emission Specialist for Janice Long Patient Type Established History Detailed Exam Detailed Medical Decision Making Moderate Complexity Diagnoses Acute respiratory failure with hypoxia and hypercapnia J96.01; J96.02 Recent non-ST elevation myocardial infarction Acute kidney injury superimposed on chronic kidney disease N17.9; N18.9 Acute exacerbation of CHF (congestive heart failure) I50.33 Heart failure type: diastolic Peripheral arterial disease I73.9
[2020-08-12 20:01] LABS: Body Fluid Polynuclear #Cells 0.026; Body Fluid WBC 93 /uL; Monocytes # Body Fluid 0.067; RBC, Body Fluid 0 10^3/uL
[2020-08-12 20:09] LABS: Apprearance, Body Fluid CLEAR; Color, Body Fluid YELLOW
[2020-08-12 21:05] LABS: Albumin Body Fluid 1.2 g/dL; Amylase Body Fluid 25 U/L; Body Fluid Specific Gravity 1.015; Cholesterol Body Fluid 20 mg/dL (0-200); Fluid Alkaline Phos. 7 IU/L; LDH Body Fluid 78 U/L; Triglycerides Body Fluid 16 mg/dL (0-150)
[2020-08-12 21:06] LABS: Total Protein Pleural Fluid 1.8 g/dL; Uric Acid Body Fluid 10 mg/dL
[2020-08-13] VITALS (39 sets, daily range): BP systolic 125–154; BP diastolic 54–90; PULSE 60–89; RESP 7–28; TEMP 37.1–37.6; O2SAT 85–98
[2020-08-13] MEDS: ipratropium-albuterol 3 mL Neb INHALATION ×3 (03:36→20:35)
[2020-08-13] MEDS: propofol 1,000 MG/100 ML INJ 1.6 MG IV (04:25)
[2020-08-13] MEDS: morphine 4 mg/mL SDV 1 mL 1 MG IVP ×4 (04:34→22:38)
[2020-08-13 04:41] LABS: Basophils # 0.1 10^3/uL (0.0-0.1); Basophils % 0.6 %; Eosinophils # 0.6 10^3/uL (0.0-0.8); Eosinophils % 4.5 %; Hematocrit 27.7 % (37.0-47.0); Hemoglobin 8.8 g/dL (11.5-15.3); Lymphocytes # 0.9 10^3/uL (0.8-4.8); Lymphocytes % 6.7 %; Mean Corpuscular HGB Conc 31.8 g/dL (30.0-36.0); Mean Corpuscular Hemoglobin 28.2 pg (28.0-34.0); Mean Corpuscular Volume 88.8 fL (81-99); Mean Platelet Volume 11.4 fL (7.4-10.4); Monocytes # 0.7 10^3/uL (0.2-0.9); Monocytes % 5.1 %; Neutrophils # 11.48 10^3/uL (1.8-7.7); Neutrophils % 82.8 %; Nucleated Red Blood Cells % 0 %; Platelet Count 269 10^3/cmm (130-400); Red Blood Count 3.12 10^6/uL (4.1-5.3); Red Cell Distribution Width 14.9 % (12.1-15.1); White Blood Count 13.9 10^3/uL (4.0-10.0)
[2020-08-13 05:08] LABS: Alanine Aminotransferase 8 U/L (0-33); Albumin Level 2.7 g/dL (3.5-5.2); Alkaline Phosphatase 60 IU/L (35-105); Anion Gap 16.9 (5-19); Aspartate Amino Transferase 18 U/L (0-32); Blood Urea Nitrogen 46 mg/dL (8-23); Carbon Dioxide 18 mmol/L (22-29); Chloride 102 mmol/L (98-107); Globulin 2.8 g/dL (1.3-4.6); Glucose 75 mg/dL (65-115); Magnesium 1.9 mg/dL (1.7-2.3); Osmolality Calculated 287 mOsm/kg (285-295); Phosphorus 5.5 mg/dL (2.5-4.5); Potassium 3.9 mmol/L (3.5-5.1); Sodium 133 mmol/L (136-145); Total Bilirubin 0.4 mg/dL (0.15-1.2); Total Protein 5.5 g/dL (6.6-8.7)
[2020-08-13 05:10] LABS: ABG PCO2 32.6 mmHg (35-45); ABG PH Result 7.34 (7.35-7.45); Arterial Blood Gas Hematocrit 27.1 % (37-47); Base Excess ABG -7.4 mmol/L (-2.0-2.0); Blood Gas Sample Site Brachial, left; Blood Gas Sample Type Arterial; Blood Gas Tidal Volume 0.45; HCO3 ABG 17.6 mmol/L (22-26); Oxygen Device VENT; PO2 ABG 87.3 mmHg (80.0-100.0)
[2020-08-13] MEDS: cefepime 1,000 MG in sodium chloride 0.9% (plus) 50 ML 100 MG IV (06:16)
--- NOTE | 2020-08-13 06:17 | PC.NURSE ---
ASSUMING CARE Patient alert and oriented and writes needs or discomforts on a piece of paper. Patient on CMV mode on ventilator with FiO2 at 40%. Patient complains of right foot pain where ulcer is. Heel protectors in place, and patients feet propped up on pillow. Patient gave nurse thumbs up for comfort. Propofol at 10 mcg/kg/min. NS at 100 mL/hour.
--- NOTE | 2020-08-13 06:43 | PC.NURSE ---
DR CAIO Steele came to see patient and states that he will order a repeat echocardiogram after patient is extubated to rule out aortic stenosis.
--- NOTE | 2020-08-13 06:44 | PC.NURSE ---
ANXIETY Patient wrote on paper I dont want to to nurse. Nurse asked patient if she was feeling anxious and patient nodded yes. Patients sedation turned back up to keep patient calm. Restraints off since 2135 last night, patient has not attempted to pull at or mess with tube.
--- NOTE | 2020-08-13 07:00 | XR_ITS ---
WS: [id number] PORTABLE CHEST HISTORY: . Follow-up respiratory failure COMPARISON: 08/12/2020 Nasogastric and endotracheal tubes are in good position. Distal extent of the NG tube is not included . Diffuse progressive haziness and interstitial thickening bilaterally. There is moderate pulmonary nalini ma which is new since the prior radiograph. Small bilateral pleural effusions have progressed. Cardiac size: Mildly enlarged cardiac silhouette. Mediastinum/Aorta: Mild atherosclerosis aorta. No osseous abnormality seen. XR/XR chest 1V portable [id number] IMPRESSION: 1. Interval development of moderate pulmonary edema with small bilateral pleur al effusions which are also new. 2. Nasogastric tube and endotracheal tubes in good position.
[2020-08-13] MEDS: FUROsemide 10 mg/mL SDV 4mL 40 MG IVP (08:13)
[2020-08-13] MEDS: linezolid premix 600 MG/300 ML PREMIX 300 MG IV ×2 (08:13→22:42)
[2020-08-13] MEDS: carvedilol 3.125 mg Tablet PO ×2 (08:14→17:22)
--- NOTE | 2020-08-13 08:58 | P.PN_ITS ---
Documented by User: LACIE Alcantara STDIVY 08/13/20 09:10 Subjective Subjective: Interval history: Ms. Lima is a 75 yo female with h/o severe peripheral vascular disease, CKD stage III, HTN, NSTEMI, and diabetes that presented to the ED on 07-25-20 for respiratory distress, discharged on 08-05, then readmitted for CHF exacerbation on 08-09-20. Today she is still intubated but is awake and aware, and was able to respond to my questions. She was wanting to know when she could get her tube out. Medications: Reviewed: Yes Medication Review Details: Current Medications Acetaminophen (Acetaminophen 325 Mg Tablet) 650 mg PO Q6H PRN PRN Reason: FEVER Last Admin: 08/11/20 15:34 Dose: 650 mg Documented by: Albuterol/Ipratropium (Ipratropium-Albuterol 3 Ml Neb) 3 ml INHALATION Q6H.RESPIRATORY PRN PRN Reason: SHORTNESS OF BREATH Last Admin: 08/12/20 02:25 Dose: 3 ml Documented by: Atorvastatin Calcium (Atorvastatin 40 Mg Tablet) 80 mg PO BEDTIME KIMBERLY Last Admin: 08/12/20 02:16 Dose: 80 mg Documented by: Carvedilol (Carvedilol 3.125 Mg Tablet) 3.125 mg PO BID KIMBERLY Last Admin: 08/11/20 19:25 Dose: Not Given Documented by: Hydralazine HCl (Hydralazine 10 Mg Tablet) 10 mg PO TID KIMBERLY Cefepime HCl 1,000 mg/ Sodium (Chloride) 50 mls @ 100 mls/hr IV Q24H KIMBERLY; Protocol Last Infusion: 08/12/20 06:38 Dose: Infused Documented by: Dexmedetomidine HCl 400 mcg/ (Sodium Chloride) 104 mls @ 0 mls/hr IV .Q0M KIMBERLY; Protocol Last Titration: 08/11/20 14:36 Dose: 0 mcg/kg/hr, 0 mls/hr Documented by: Propofol (Diprivan) 1,000 mg in 100 mls @ 0 mls/hr IV .Q0M KIMBERLY; Protocol Last Titration: 08/12/20 06:33 Dose: Infused Documented by: Linezolid (Zyvox Premix) 600 mg in 300 mls @ 300 mls/hr IV Q12H KIMBERLY Last Infusion: 08/11/20 22:25 Dose: Infused Documented by: Sodium Chloride (Sodium Chloride 0.9%) 1,000 mls @ 100 mls/hr IV .Q10H KIMBERLY Morphine Sulfate (Morphine 4 Mg/Ml Sdv 1 Ml) 1 mg IVP Q2H PRN PRN Reason: SEVERE PAIN Last Admin: 08/11/20 15:21 Dose: 1 mg Documented by: Vitals/I&O/Wt Last Vital Signs Temp 98.8 F 08/13/20 07:00 Pulse 68 08/13/20 07:44 Resp 12 08/13/20 07:45 BP 141/62 08/13/20 07:00 Pulse Ox 95 08/13/20 07:44 08/12/20 08/13/20 08/13/20 22:59 06:59 14:59 Intake Total 1300 / 1600 8.312 / 1608.312 Output Total 475 / 675 Balance 1300 / 1400 -466.688 / 933.312 Weight last 48 hrs Weight 65.453 kg Physical Exam Narrative: EXAM NARRATIVE: PHYSICAL EXAM: General: lying in bed, awake alert and following commands, ET tube connected to ventilator HEENT:NCAT, PERRLA, EOMI Neck: Supple Lungs: Reduced breath sounds bilateral lower lungs Heart: s1/s2, RRR Abd: soft, NT, ND, BS + Normoactive Extremities: No edema; bilateral heel decubitis covered with pressure dressings FIRE PREVENTION INSPECTOR: sedated and limited FIRE PREVENTION INSPECTOR exam possible. SKIN: no rash Const: COMMON NORMALS: average body habitus, patient oriented x3, no limitations, healthy appearing, alert and well nourished GENERAL APPEARANCE: in distress HENMT: COMMON NORMALS: normocephalic, atraumatic and moist oral mucous membranes HEAD & SCALP: normocephalic and atraumatic Neck/C-Spine: COMMON NORMALS: full ROM, supple, no meningeal signs, no JVD and No carotid bruits Resp: COMMON NORMALS: percussion normal EFFORT & INSPECTION: No able to speak in complete sentences, Yes tachypneic and Yes respiratory distress AUSCULTATION: rales and diminished lung sounds PERCUSSION: percussion normal Cardio: COMMON NORMALS: no JVD, regular rate, regular rhythm, S1 normal heart sound present, S2 normal heart sound present, No gallops present (Cardio), No clicks present (Cardio), No murmurs present (Cardio), No rub (Cardio) and Periph eral pulses 2+ throughout RATE: regular rate RHYTHM: regular rhythm HEART SOUNDS: S1 normal heart sound present and S2 normal heart sound present PERIPHERAL PULSES: Peripheral pulses 2+ throughout GI: COMMON NORMALS: Normal to inspection, nondistended, normoactive bowel sounds present, Soft to palpation, non-tender, No hepatosplenomegaly present, no masses and no bruits PALPATION: Yes Soft to palpation and Yes No hepatosplenomegaly present Extremity: COMMON NORMALS: normal to inspection, full ROM, capillary refill normal and no calf tenderness LEFT LOWER EXTREMITY: Yes foot & digits Neuro: COMMON NORMALS: patient oriented x3 SENSORIUM/ORIENTATION: Yes alert MENINGEAL SIGNS: Yes no meningeal signs Skin: COMMON NORMALS: no rashes or lesions noted, no wounds, turgor normal, no jaundice, no petechiae and no mottling GENERAL SKIN EXAM: no rashes or lesions noted and turgor normal WOUNDS: Yes surgical site Details: no odor Urinary Catheter Management^: Mcfarland: Cath Placed During This Visit: yes Reason for Continuing Indwelling Catheter: Accurate Measurement of Urinary Output in Critically Ill Patients Urinary Catheter Date of Insertion: 08/09/20 Urinary Catheter Time of Insertion: 22:15 Data : 08/13/20 03:51 08/13/20 03:51 Micro: Microbiology 08/12/20 18:20 Gram Stain - Final Pleural Fluid 08/10/20 17:55 Gram Stain - Final Sputum - Endotracheal Tube Aspirate Sputum Culture - Preliminary A&P Assessment and plan (1) Acute exacerbation of CHF (congestive heart failure): Status: Acute Qualifiers: Heart failure type: diastolic Qualified Code(s): I50.33 - Acute on chronic diastolic (congestive) heart failure (2) Acute kidney injury superimposed on chronic kidney disease: Status: Acute (3) Hospital-acquired pneumonia: Status: Acute (4) Acute respiratory failure with hypoxia and hypercapnia: Status: Acute (5) Recent non-ST elevation myocardial infarction: Status: Acute (6) Bilateral pleural effusion: Status: Acute # Acute respiratory failure likely secondary to CHF exacerbation #Worsening renal failure in patient with CKD stage III -secondary to cardi orenal #Bilateral pleural effusions due to cardiac and renal failure -Currently Lasix held due to worsening renal functions and patient started on 100 mL/h IV hydration to treat prerenal component of GERARD -Strictly monitor I&O and if decreased urine output recommended to give Lasix 40 mg challenge -S/p right pleural effusion drained 1100 cc straw-colored fluid-transudative in nature; post procedure chest x-ray showed improved right-sided lung volumes. However, today's CXR showed moderate pulmonary edema with small b/l pleural effusions. -Patient is tolerating breathing trial and mentation is good-proceed with extubation today; I will consider draining left-sided pleural effusion tomorrow to facilitate better ventilation -Other than 1 spike 100.7; patient remained afebrile with normal WBC and procalcitonin?transudate of effusion-recommend to DC antibiotics -If patient continues to spike fevers/leukocytosis-look for other infectious sources like heel decubitis -Both renal and cardiology is following the case Attestations Medical Necessity Statement*: as noted by medicine Coding Level of Care Code Acute [facility] Ex[facility] Comprehensive Diagnoses Acute exacerbation of CHF (congestive heart failure) I50.33 Heart failure type: diastolic Acute kidney injury superimposed on chronic kidney disease N17.9; N18.9 Hospital-acquired pneumonia J18.9; Y95 Acute respiratory failure with hypoxia and hypercapnia J96.01; J96.02 Recent non-ST elevation myocardial infarction Bilateral pleural effusion J90 Documented by User: Yossi Mcgee MD 08/13/20 10:42 Physical Exam Urinary Catheter Management^: Mcfarland: Cath Placed During This Visit: no Data : 08/13/20 03:51 08/13/20 03:51 Attestations 2 Medical Necessity Statement*: Needs continued hospitalization, secondary to respiratory failure requiring ventilator support, and likely extubate to BiPAP as well as renal failure and CHF. Above reviewed in detail with student. Patient interviewed, exam performed. See other note as well. Coding Level of Care Code Acute Home Support Worker for [facility] [place] Exam Comprehensive Diagnoses Acute exacerbation of CHF (congestive heart failure) I50.33 Heart failure type: diastolic Acute kidney injury superimposed on chronic kidney disease N17.9; N18.9 Hospital-acquired pneumonia J18.9; Y95 Acute respiratory failure with hypoxia and hypercapnia J96.01; J96.02 Recent non-ST elevation myocardial infarction Bilateral pleural effusion J90
--- NOTE | 2020-08-13 09:05 | DCPLANNER ---
Pg 2 of IM updated and explained to pt who smiles and acknowledges that she understands. Forensic Manager doesn't know if she does or not and will be sure to explain it to family when opportunity presents. Copy provided.
--- NOTE | 2020-08-13 10:43 | PM.PN ---
Subjective Subjective: Interval history: Patient has just been extubated. I visited with her regarding possible reintubation if needed and she reports that she would want this. Medications: Reviewed: Yes Vitals/I&O/Wt Last Vital Signs Temp 99.4 F 08/13/20 09:00 Pulse 66 08/13/20 10:25 Resp 22 H 08/13/20 10:00 BP 143/75 08/13/20 10:00 Pulse Ox 94 08/13/20 10:25 08/12/20 08/13/20 08/13/20 22:59 06:59 14:59 Intake Total 1300 / 1600 8.312 / 1608.312 Output Total 475 / 675 200 / 200 Balance 1300 / 1400 -466.688 / 933.312 -200 / -200 Weight last 48 hrs Weight 65.453 kg Physical Exam Narrative: EXAM NARRATIVE: General exam no apparent distress, interactive HEENT. Currently on BiPAP Cardiovascular regular rate and rhythm without murmur Lungs clear but with diminished breath sounds bilaterally Abdomen is soft, positive bowel sounds Extremities no cyanosis clubbing . right heel ulcer has dressing. No surrounding erythema or edema Urinary Catheter Management^: Mcfarland: Cath Placed During This Visit: yes Reason for Continuing Indwelling Catheter: Accurate Measurement of Urinary Output in Critically Ill Patients Urinary Catheter Date of Insertion: 08/09/20 Urinary Catheter Time of Insertion: 22:15 Data : 08/13/20 03:51 08/13/20 03:51 Micro: Microbiology 08/12/20 18:20 Gram Stain - Final Pleural Fluid 08/10/20 17:55 Gram Stain - Final Sputum - Endotracheal Tube Aspirate Sputum Culture - Preliminary A&P Assessment and plan (1) Acute exacerbation of CHF (congestive heart failure): Appreciate cardiology consultation Diuretic dose today per nephrology Discontinue IV fluids Continued close follow-up of renal function Suspect an element of cardiorenal syndrome Presentation consistent with acute diastolic heart failure. Last EF 55%, moderate aortic valve stenosis with valve area of 1.1, and grade 2 diastolic dysfunction. I believe cardiology is going to repeat echocardiogram today. Status: Acute Qualifiers: Heart failure type: diastolic Qualified Code(s): I50.33 - Acute on chronic diastolic (congestive) heart failure (2) Acute kidney injury superimposed on chronic kidney disease: Renal function slightly improved today Recent renal ultrasound no obstruction Avoid renal toxic medication Hold ARB Nephrology consultation appreciated Status: Acute (3) Sepsis: Continue linezolid and cefepime. Plan 7 days IV antibiotics Await sputum and blood culture Procalcitonin was elevated at 0.25. Repeat tomorrow MRSA PCR pending Status: Acute (4) Hospital-acquired pneumonia: Antibiotics as noted above Bilateral pleural effusions noted. Thoracentesis occurred yesterday per pulmonary and 1100 cc of transudate of fluid was removed. It is possible she may need a [place] drain. This was discussed briefly with pulmonary as well as nephrology today. This will need to be determined depending upon her clinical course. Status: Acute (5) Acute respiratory failure with hypoxia and hypercapnia: BiPAP. Wean off as tolerated. Status: Acute Additional A&P Information Acute hypoxic hypercarbic respiratory failure. Secondary to pneumonia and CHF exacerbation Elevated troponin. Secondary to acute systolic heart failure as well as renal dysfunction. No significant delta. I do not believe she needs full anticoagulation at this time. Edema. Venous duplex negative for DVT History of anemia and recent transfusion. Holding heparin currently secondary to significant GI bleed previous hospital stay, significant anemia. Hemoglobin stable currently. Peripheral vascular disease. Keep pressure off right heel History of chronic blood loss anemia. Recent history of EGD showing gastritis and duodenitis. Continue Protonix. This has been changed to IV every 24 hours History of hypertension Full code DVT prophylaxis with heparin subcutaneous Attestations Medical Necessity Statement*: Needs continued hospitalization for acute congestive heart failure requiring diuresis. Coding Level of Care Code Acute Industrial Engineering Director for [facility] Fwd Diagnoses Acute exacerbation of CHF (congestive heart failure) I50.33 Heart failure type: diastolic Acute kidney injury superimposed on chronic kidney disease N17.9; N18.9 Sepsis A41.9 Hospital-acquired pneumonia J18.9; Y95 Acute respiratory failure with hypoxia and hypercapnia J96.01; J96.02
--- NOTE | 2020-08-13 10:58 | PM.PN ---
Subjective Subjective: Interval history: pt seen earlier this morning. was intubated, following commands. denied SOB or cp Medications: Reviewed: Yes Medication Review Details: Current Medications Acetaminophen (Acetaminophen 325 Mg Tablet) 650 mg PO Q6H PRN PRN Reason: FEVER Last Admin: 08/11/20 15:34 Dose: 650 mg Documented by: Albuterol/Ipratropium (Ipratropium-Albuterol 3 Ml Neb) 3 ml INHALATION Q6H.RESPIRATORY PRN PRN Reason: SHORTNESS OF BREATH Last Admin: 08/13/20 07:44 Dose: 3 ml Documented by: Atorvastatin Calcium (Atorvastatin 40 Mg Tablet) 80 mg PO BEDTIME KIMBERLY Last Admin: 08/12/20 20:11 Dose: 80 mg Documented by: Carvedilol (Carvedilol 3.125 Mg Tablet) 3.125 mg PO BID KIMBERLY Last Admin: 08/13/20 08:14 Dose: 3.125 mg Documented by: Cefepime HCl 1,000 mg/ Sodium (Chloride) 50 mls @ 100 mls/hr IV Q24H KIMBERLY; Protocol Last Admin: 08/13/20 06:16 Dose: 100 mls/hr Documented by: Dexmedetomidine HCl 400 mcg/ (Sodium Chloride) 104 mls @ 0 mls/hr IV .Q0M KIMBERLY; Protocol Last Titration: 08/11/20 14:36 Dose: 0 mcg/kg/hr, 0 mls/hr Documented by: Propofol (Diprivan) 1,000 mg in 100 mls @ 0 mls/hr IV .Q0M KIMBERLY; Protocol Last Titration: 08/13/20 06:29 Dose: 0 mcg/kg/min, 0 mls/hr Documented by: Linezolid (Zyvox Premix) 600 mg in 300 mls @ 300 mls/hr IV Q12H KIMBERLY Last Admin: 08/13/20 08:13 Dose: 300 mls/hr Documented by: Morphine Sulfate (Morphine 4 Mg/Ml Sdv 1 Ml) 1 mg IVP Q2H PRN PRN Reason: SEVERE PAIN Last Admin: 08/13/20 08:14 Dose: 1 mg Documented by: Pantoprazole Sodium (Pantoprazole 40 Mg Sdv) 40 mg IVP Q24H KIMBERLY Last Admin: 08/12/20 18:25 Dose: 40 mg Documented by: Vitals/I&O/Wt Last Vital Signs Temp 99.4 F 08/13/20 09:00 Pulse 66 08/13/20 10:25 Resp 22 H 08/13/20 10:00 BP 143/75 08/13/20 10:00 Pulse Ox 94 08/13/20 10:25 08/12/20 08/13/20 08/13/20 22:59 06:59 14:59 Intake Total 1300 / 1600 8.312 / 1608.312 Output Total 475 / 675 200 / 200 Balance 1300 / 1400 -466.688 / 933.312 -200 / -200 Weight last 48 hrs Weight 65.453 kg Physical Exam Narrative: EXAM NARRATIVE: this morning she was intubated vent fio2 of 40%, PEEP 5 - uop poor heent- nca/t, eomi neck supple lungs per RN- good air movement, dull bases heart - reg, +HSM abd soft, nt, +BS ext no edema neuro- responsive, follows simple commands Urinary Catheter Management^: Mcfarland: Cath Placed During This Visit: yes Reason for Continuing Indwelling Catheter: Accurate Measurement of Urinary Output in Critically Ill Patients Urinary Catheter Date of Insertion: 08/09/20 Urinary Catheter Time of Insertion: 22:15 Data : 08/13/20 03:51 08/13/20 03:51 Micro: Microbiology 08/12/20 18:20 Gram Stain - Final Pleural Fluid 08/10/20 17:55 Gram Stain - Final Sputum - Endotracheal Tube Aspirate Sputum Culture - Preliminary A&P Additional A&P Information 75 yr old female PVD/ CAD, diastolic dysfunction, recent GI bleed- s/p 7 u prbc tx, diastolic dysfunction, moderate . 1.renal dysfunction- cr was normal till March 2020. then slowly rising and improving. -in Jul 2020- Gerard- cr to 3.8 and improved to 1.9 -recurrent GERARD- likely CRS vs ATN from dropping her high BP and lasix -recent SPEP and DALE and Renal us normal -inc sob- d/c ivf, give lasix- may benefit from pigtail catheter- as having recurrent pleural effusions -repeat ua -phosphorus -5.5- improving 2. PNA -renal dose abx -wbc of 14 3. Acute on chronic diastolic dysfunction- consider thoracentesis. Cardiology has recommended a stress test and full cardiac eval- pt is high risk for SHAILA if needs angiogram 4. anemia- recent Presumed GI bleed from gastritis/ duodenitis- Q further eval -iron sat 11.7%. recent ferritin 285- consider iv iron 5. metabolic acidosis and resp compensation 6.hyponatremia from , diastolic CHF and GERARD/ lasix discussed w/ RN seen w/ BROADCAST SUPERVISOR and Dr. Mcgee Attestations Medical Necessity Statement*: gerard, htn, chf Time Spent in Patient Care: 16 - 35 minutes Coding Level of Care Code Acute Parts And Service Manager for [employer]
--- NOTE | 2020-08-13 17:05 | P.PN_ITS ---
Subjective Medications: Reviewed: Yes Medication Review Details: Current Medications Acetaminophen (Acetaminophen 325 Mg Tablet) 650 mg PO Q6H PRN PRN Reason: FEVER Last Admin: 08/11/20 15:34 Dose: 650 mg Documented by: Albuterol/Ipratropium (Ipratropium-Albuterol 3 Ml Neb) 3 ml INHALATION Q6H.RESPIRATORY PRN PRN Reason: SHORTNESS OF BREATH Last Admin: 08/13/20 07:44 Dose: 3 ml Documented by: Atorvastatin Calcium (Atorvastatin 40 Mg Tablet) 80 mg PO BEDTIME KIMBERLY Last Admin: 08/12/20 20:11 Dose: 80 mg Documented by: Carvedilol (Carvedilol 3.125 Mg Tablet) 3.125 mg PO BID KIMBERLY Last Admin: 08/13/20 08:14 Dose: 3.125 mg Documented by: Cefepime HCl 1,000 mg/ Sodium (Chloride) 50 mls @ 100 mls/hr IV Q24H KIMBERLY; Protocol Last Admin: 08/13/20 06:16 Dose: 100 mls/hr Documented by: Dexmedetomidine HCl 400 mcg/ (Sodium Chloride) 104 mls @ 0 mls/hr IV .Q0M KIMBERLY; Protocol Last Titration: 08/11/20 14:36 Dose: 0 mcg/kg/hr, 0 mls/hr Documented by: Propofol (Diprivan) 1,000 mg in 100 mls @ 0 mls/hr IV .Q0M KIMBERLY; Protocol Last Titration: 08/13/20 06:29 Dose: 0 mcg/kg/min, 0 mls/hr Documented by: Linezolid (Zyvox Premix) 600 mg in 300 mls @ 300 mls/hr IV Q12H KIMBERLY Last Admin: 08/13/20 08:13 Dose: 300 mls/hr Documented by: Morphine Sulfate (Morphine 4 Mg/Ml Sdv 1 Ml) 1 mg IVP Q2H PRN PRN Reason: SEVERE PAIN Last Admin: 08/13/20 16:57 Dose: 1 mg Documented by: Pantoprazole Sodium (Pantoprazole 40 Mg Sdv) 40 mg IVP Q24H KIMBERLY Last Admin: 08/12/20 18:25 Dose: 40 mg Documented by: Vitals/I&O/Wt Last Vital Signs Temp 99.4 F 08/13/20 09:00 Pulse 67 08/13/20 16:35 Resp 19 H 08/13/20 16:00 BP 141/57 08/13/20 16:00 Pulse Ox 97 08/13/20 16:35 08/13/20 08/13/20 08/13/20 06:59 14:59 22:59 Intake Total 8.312 / 1608.312 Output Total 475 / 675 200 / 200 Balance -466.688 / 933.312 -200 / -200 Weight last 48 hrs Weight 144 lb 4.8 oz Physical Exam Narrative: EXAM NARRATIVE: GENERAL: The patient is currently extubated HEENT: Moderate pallor, icterus or lymphadenopathy. The pupils are symmetrical oral cavity: There are no mucous membrane lesions. NECK: Trachea appears to be central. No masses noted. No JVD or thyromegaly appreciated. No carotid bruit. RESPIRATORY: Chest is symmetrical. No intercostals muscle retraction or any accessory muscle activation. There is no chest wall tenderness. Breath sounds are heard bilaterally. Breath sounds are diminished in the bases. BREASTS: Deferred. HEART: The PMI could not be palpated. First and second heart sounds are normal. No S3 or S4. Short systolic murmur in the mitral area. Short systolic murmur the left sternal border. No diastolic murmurs. ABDOMEN: No vessel pulsations or distention. No tenderness. No organomegaly a ppreciated. No abdominal bruit. Bowel sounds are normally heard. : Deferred. RECTAL: Deferred. LYMPHATIC: No lymphadenopathy noted in the neck or groin. EXTREMITIES: Trace to 1+ edema with no cyanosis MUSCULOSKELETAL: No acute joint deformities or swelling SKIN: There are no significant scars or skin rash noted. NEUROPSYCHIATRIC: No focal motor deficits. Urinary Catheter Management^: Mcfarland: Cath Placed During This Visit: yes Reason for Continuing Indwelling Catheter: Accurate Measurement of Urinary Ou tput in Critically Ill Patients Urinary Catheter Date of Insertion: 08/09/20 Urinary Catheter Time of Insertion: 22:15 Data : 08/13/20 03:51 08/13/20 03:51 Other Labs: Laboratory Last Values WBC 13.9 10^3/uL (4.0-10.0) H 08/13/20 03:51 RBC 3.12 10^6/uL (4.1-5.3) L 08/13/20 03:51 Hgb 8.8 g/dL (11.5-15.3) L 08/13/20 03:51 Hct 27.7 % (37.0-47.0) L 08/13/20 03:51 MCV 88.8 fL (81-99) 08/13/20 03:51 MCH 28.2 pg (28.0-34.0) 08/13/20 03:51 MCHC 31.8 g/dL (30.0-36.0) 08/13/20 03:51 RDW 14.9 % (12.1-15.1) 08/13/20 03:51 Plt Count 269 10^3/cmm (130-400) 08/13/20 03:51 MPV 11.4 fL (7.4-10.4) H 08/13/20 03:51 Neut % (Auto) 82.8 % 08/13/20 03:51 Lymph % (Auto) 6.7 % 08/13/20 03:51 Morrow % (Auto) 5.1 % 08/13/20 03:51 Eos % (Auto) 4.5 % 08/13/20 03:51 Baso % (Auto) 0.6 % 08/13/20 03:51 Neut # (Auto) 11.48 10^3/uL (1.8-7.7) H 08/13/20 03:51 Lymph # (Auto) 0.9 10^3/uL (0.8-4.8) 08/13/20 03:51 Morrow # (Auto) 0.7 10^3/uL (0.2-0.9) 08/13/20 03:51 Eos # (Auto) 0.6 10^3/uL (0.0-0.8) 08/13/20 03:51 Baso # (Auto) 0.1 10^3/uL (0.0-0.1) 08/13/20 03:51 Nucleated RBC % (auto) 0 % 08/13/20 03:51 Nucleated RBCs # 0.0 /100WBC 08/13/20 03:51 APTT 36.8 SECONDS (23.9-36.7) H 08/09/20 21:13 Specimen Type Arterial 08/13/20 04:58 Sample Site Brachial, left 08/13/20 04:58 ABG pH 7.34 (7.35-7.45) L 08/13/20 04:58 ABG pCO2 32.6 mmHg (35-45) L 08/13/20 04:58 ABG pO2 87.3 mmHg (80.0-100.0) 08/13/20 04:58 ABG HCO3 17.6 mmol/L (22-26) L 08/13/20 04:58 ABG O2 Saturation 98.3 08/10/20 01:16 ABG Base Excess -7.4 mmol/L (-2.0-2.0) L 08/13/20 04:58 Jaren Test N/a 08/13/20 04:58 A-a O2 Gradient 28.0 mmHg (5-10) H 08/10/20 01:16 Hematocrit 27.1 % (37-47) L 08/13/20 04:58 Hgb O2 Saturation 96.6 % (95-100) 08/10/20 01:16 Carboxyhemoglobin 0.8 %THgb (0.4-20.1) 08/10/20 01:16 Methemoglobin 1.0 % (0.4-1.5) 08/10/20 01:16 Total Hemoglobin 12.0 g/dL (12-16) 08/10/20 01:16 Sodium 133.0 mmol/L (131-143) 08/10/20 01:16 Potassium 4.6 mmol/L (3.5-5.0) 08/10/20 01:16 Glucose 147.0 mg/dL (70-115) H 08/10/20 01:16 Ionized Calcium 1.2 mmol/L (1.1-1.4) 08/10/20 01:16 O2 Delivery Device Vent 08/13/20 04:58 O2 Liters/Min 50.0 % 08/09/20 22:30 FiO2 40.0 % 08/13/20 04:58 Tidal Volume 0.45 08/13/20 04:58 PEEP 5.0 cmH20 08/13/20 04:58 Keyboard Specialist ID Hinja 08/13/20 04:58 Sodium 133 mmol/L (136-145) L 08/13/20 03:51 Potassium 3.9 mmol/L (3.5-5.1) 08/13/20 03:51 Chloride 102 mmol/L (98-107) 08/13/20 03:51 Carbon Dioxide 18 mmol/L (22-29) L 08/13/20 03:51 Anion Gap 16.9 (5-19) 08/13/20 03:51 BUN 46 mg/dL (8-23) H 08/13/20 03:51 Creatinine 3.3 mg/dL (0.5-0.9) H 08/13/20 03:51 GFR Calculation Not Reportable 08/13/20 03:51 Glucose 75 mg/dL (65-115) 08/13/20 03:51 Calculated Osmolality 287 mOsm/kg (285-295) 08/13/20 03:51 Calcium 8.0 mg/dL (8.5-10.5) L 08/13/20 03:51 Phosphorus 5.5 mg/dL (2.5-4.5) H 08/13/20 03:51 Magnesium 1.9 mg/dL (1.7-2.3) 08/13/20 03:51 Iron 15 ug/dL (37-145) L 08/12/20 03:55 TIBC 128 mcg/dl 08/12/20 03:55 % Saturation 11.7 % (20-50) L 08/12/20 03:55 Unsat Iron Binding 113 ug/dL (112-347) 08/12/20 03:55 Total Bilirubin 0.4 mg/dL (0.15-1.2) 08/13/20 03:51 AST 18 U/L (0-32) 08/13/20 03:51 ALT 8 U/L (0-33) 08/13/20 03:51 Alkaline Phosphatase 60 IU/L (35-105) 08/13/20 03:51 Creatine Kinase 24 U/L (26-192) L 08/11/20 22:03 Troponin T Baseline 306 ng/L (0-10) H* 08/09/20 21:13 Troponin T 120 Minute 284.2 ng/L (0-10) H 08/09/20 23:16 Delta Troponin T -21.8 ABS# (0-10) L 08/09/20 23:16 Troponin T Hi Sens 6Hr 300.6 ng/L (0-10) H 08/10/20 03:15 Troponin T Hi Sens 6Hr Delta -5.4 ng/L (0-12) L 08/10/20 03:15 NT-Pro-B Natriuret Pep 83510 pg/mL (0-450) H 08/09/20 21:13 Total Protein 5.5 g/dL (6.6-8.7) L 08/13/20 03:51 Albumin 2.7 g/dL (3.5-5.2) L 08/13/20 03:51 Globulin 2.8 g/dL (1.3-4.6) 08/13/20 03:51 Lipase 89 U/L (13-60) H 08/09/20 21:13 Procalcitonin 0.25 ng/mL (0-0.5) 08/10/20 13:39 Urine Color Yellow (Yellow) 08/11/20 09:30 Urine Appearance Clear (CLEAR) 08/11/20 09:30 Urine pH 5.0 (5-7) 08/11/20 09:30 Ur Specific [place] 1.020 (1.005-1.030) 08/11/20 09:30 Urine Protein 1+ (Negative) H 08/11/20 09:30 Urine Glucose (UA) Norm (Normal) 08/11/20 09:30 Urine Ketones Negative (Negative) 08/11/20 09:30 Urine Blood 2+ (Negative) H 08/11/20 09:30 Urine Nitrate Negative (Negative) 08/11/20 09:30 Urine Bilirubin Neg (Negative) 08/11/20 09:30 Urine Urobilinogen Norm mg/dL (Negative) 08/11/20 09:30 Ur Leukocyte Esterase 1+ (Negative) H 08/11/20 09:30 Urine RBC 15-25 /hpf (0-2) H 08/11/20 09:30 Urine WBC 25-40 /hpf (0-5) H 08/11/20 09:30 Ur Squamous Epith Cells 25-40 /hpf (0-5) H 08/11/20 09:30 Amorphous Sediment Not Reportable 08/11/20 09:30 Urine Bacteria 1+ /hpf (NONE) H 08/11/20 09:30 Hyaline Casts 5-10 /lpf H 08/11/20 09:30 Urine Mucus 1+ /hpf 08/11/20 09:30 Urine Yeast 1+ /hpf H 08/11/20 09:30 Ur Random Sodium 19 mmol/L 08/11/20 09:30 Ur Random Potassium 51 mmol/L 08/11/20 09:30 Ur Random Chloride 23 mmol/L 08/11/20 09:30 Fluid Color Yellow 08/12/20 18:20 Fluid Appearance Clear 08/12/20 18:20 Fluid Specific Grav 1.015 08/12/20 18:20 Fluid pH 8.0 08/12/20 18:20 Fluid WBC 93 /uL 08/12/20 18:20 Fluid RBC 0 10^3/uL 08/12/20 18:20 Fld Polynuclear WBCs # 0.026 08/12/20 18:20 Fld Polynuclear WBCs % 27.900 % 08/12/20 18:20 Fl Mononucl WBCs #(Auto) 0.067 08/12/20 18:20 Fl Mononuclear % Auto 72.100 % 08/12/20 18:20 Fluid Glucose 88.0 mg/dL 08/12/20 18:20 Fluid Albumin 1.2 g/dL 08/12/20 18:20 Fluid LDH 78 U/L 08/12/20 18:20 Fluid Amylase 25 U/L 08/12/20 18:20 Fluid Alk Phosphatase 7 IU/L 08/12/20 18:20 Fluid Cholesterol 20 mg/dL (0-200) 08/12/20 18:20 Fluid Triglycerides 16 mg/dL (0-150) 08/12/20 18:20 Fluid Uric Acid 10 mg/dL 08/12/20 18:20 Pleural Total Protein 1.8 g/dL 08/12/20 18:20 Random Vancomycin < 4.0 ug/mL (20.0-40.0) L 08/11/20 22:03 Influenza Type A Ag Negative (Negative) 08/09/20 21:13 Influenza Type B Ag Negative (Negative) 08/09/20 21:13 SARS-CoV-2 Ag (Rapid) Negative (Negative) 08/09/20 21:13 Micro: Microbiology 08/10/20 17:55 Gram Stain - Final Sputum - Endotracheal Tube Aspirate Sputum Culture - Final 08/12/20 18:20 Gram Stain - Final Pleural Fluid Echo: My impression: Echocardiogram on 05/26/2020 revealed 1. Small left ventricular cavity size. Moderate concentric left ventricular hypertrophy. Normal left ventricle systolic function. Left ventricular ejection fraction estimated at 55%. There is possible mild hypokinesis of apical inferior and apical septal katz. grade II diastolic dysfunction, moderately elevated filling pressures. 2. Normal right ventricular size and systolic function. 3. Moderately increased left atrial size. 4. Mild mitral and tricuspid valve regurgitation. 5. Moderate aortic valve stenosis, mean gradient 17.1 mmHg, JOSE 1.1 cm squared (LVOT= 18 mm). Indexed aortic valve area of 0.7 cm squared/m squared. Dimensionless valve index of 0.46. Mild aortic valve regurgitation. 6. Right pleural effusion. 7. No prior similar studies to compare. CXR: My impression: Moderate cardiomegaly. Bilateral pleural effusion. Prominent pulmonary vascular markings. A&P Assessment and plan (1) Acute respiratory failure with hypoxia and hypercapnia: The patient is currently extubated. She had a thoracentesis on the left side yesterday by the pulmonology. Total of 1 L of fluid was taken out. She is on IV diuresis. Nephrology service is managing the diuretics. Status: Acute (2) Recent non-ST elevation myocardial infarction: Patient had features of a non-ST elevation myocardial infarction, during the previous hospital admission. Her current troponin T is are negative for acute myocardial injury. She requires further cardiac work-up. But because of her worsening kidney function, anemia and the unstable respiratory status, we may hold off on this for the time being. Status: Acute (3) Acute kidney injury superimposed on chronic kidney disease: The creatinine seems to be stable. Status: Acute (4) Acute exacerbation of CHF (congestive heart failure): Seems to have intermittent pulmonary edema. Currently seems stable Status: Acute Qualifiers: Heart failure type: diastolic Qualified Code(s): I50.33 - Acute on chronic diastolic (congestive) heart failure (5) Peripheral arterial disease: Patient has no resting claudication at this point. We will continue the current management. Status: Acute Additional A&P Information May consider doing a myocardial perfusion imaging once her clinical status is little more stable May continue the current measures for the time being. Attestations Medical Necessity Statement*: Patient requires continued hospital stay for close monitoring and further management Coding Level of Care Code Acute Product Applications Scientist for [facility] Diagnoses Acute respiratory failure with hypoxia and hypercapnia J96.01; J96.02 Recent non-ST elevation myocardial infarction Acute kidney injury superimposed on chronic kidney disease N17.9; N18.9 Acute exacerbation of CHF (congestive heart failure) I50.33 Heart failure type: diastolic Peripheral arterial disease I73.9
--- NOTE | 2020-08-13 17:10 | PC.NURSE ---
Pt sitting in bed, taken off bipap, put on 6 L/NC. Assisted with dinner tray set up. Pt is very anxious. Morphine given for pain in foot and anxiety. Dressing to both heels changed.
[2020-08-13] MEDS: pantoprazole 40 mg SDV IVP (17:22)
--- NOTE | 2020-08-13 22:49 | PM.PN ---
Subjective Subjective: Interval history: Extubated today and doing well Medications: Reviewed: Yes Medication Review Details: Current Medications Acetaminophen (Acetaminophen 325 Mg Tablet) 650 mg PO Q6H PRN PRN Reason: FEVER Last Admin: 08/11/20 15:34 Dose: 650 mg Documented by: Albuterol/Ipratropium (Ipratropium-Albuterol 3 Ml Neb) 3 ml INHALATION Q6H.RESPIRATORY PRN PRN Reason: SHORTNESS OF BREATH Last Admin: 08/13/20 07:44 Dose: 3 ml Documented by: Atorvastatin Calcium (Atorvastatin 40 Mg Tablet) 80 mg PO BEDTIME KIMBERLY Last Admin: 08/12/20 20:11 Dose: 80 mg Documented by: Carvedilol (Carvedilol 3.125 Mg Tablet) 3.125 mg PO BID [facility] Last Admin: 08/13/20 08:14 Dose: 3.125 mg Documented by: Cefepime HCl 1,000 mg/ Sodium (Chloride) 50 mls @ 100 mls/hr IV Q24H KIMBERLY; Protocol Last Admin: 08/13/20 06:16 Dose: 100 mls/hr Documented by: Dexmedetomidine HCl 400 mcg/ (Sodium Chloride) 104 mls @ 0 mls/hr IV .Q0M KIMBERLY; Protocol Last Titration: 08/11/20 14:36 Dose: 0 mcg/kg/hr, 0 mls/hr Documented by: Propofol (Diprivan) 1,000 mg in 100 mls @ 0 mls/hr IV .Q0M KIMBERLY; Protocol Last Titration: 08/13/20 06:29 Dose: 0 mcg/kg/min, 0 mls/hr Documented by: Linezolid (Zyvox Premix) 600 mg in 300 mls @ 300 mls/hr IV Q12H KIMBERLY Last Admin: 08/13/20 08:13 Dose: 300 mls/hr Documented by: Morphine Sulfate (Morphine 4 Mg/Ml Sdv 1 Ml) 1 mg IVP Q2H PRN PRN Reason: SEVERE PAIN Last Admin: 08/13/20 16:57 Dose: 1 mg Documented by: Pantoprazole Sodium (Pantoprazole 40 Mg Sdv) 40 mg IVP Q24H KIMBERLY Last Admin: 08/12/20 18:25 Dose: 40 mg Documented by: Vitals/I&O/Wt Last Vital Signs Temp 99.4 F 08/13/20 09:00 Pulse 61 08/13/20 20:39 Resp 19 H 08/13/20 22:38 BP 139/56 08/13/20 19:00 Pulse Ox 94 08/13/20 22:38 08/13/20 08/13/20 08/13/20 06:59 14:59 22:59 Intake Total 58.312 / 1658.312 300 / 300 220 / 520 Output Total 475 / 675 200 / 200 250 / 450 Balance -416.688 / 983.312 100 / 100 -30 / 70 Weight last 48 hrs Weight 144 lb 4.8 oz Physical Exam Narrative: EXAM NARRATIVE: PHYSICAL EXAM: General: Sitting in bed, following commands HEENT:NCAT, PERRLA, EOMI Neck: Supple Lungs: Reduced breath sounds bilateral lower lungs; left more than right Heart: s1/s2, RRR Abd: soft, NT, ND, BS + Normoactive Extremities: No edema; bilateral heel decubiti covered with pressure dressings BARREL FILLER: Awake alert and nonfocal 6 SKIN: no rash Urinary Catheter Management^: Mcfarland: Cath Placed During This Visit: yes Reason for Continuing Indwelling Catheter: Accurate Measurement of Urinary Output in Critically Ill Patients Urinary Catheter Date of Insertion: 08/09/20 Urinary Catheter Time of Insertion: 22:15 Data : 08/13/20 03:51 08/13/20 03:51 Micro: Microbiology 08/10/20 17:55 Gram Stain - Final Sputum - Endotracheal Tube Aspirate Sputum Culture - Final 08/12/20 18:20 Gram Stain - Final Pleural Fluid A&P Assessment and plan (1) Acute exacerbation of CHF (congestive heart failure): Status: Acute Qualifiers: Heart failure type: diastolic Qualified Code(s): I50.33 - Acute on chronic diastolic (congestive) heart failure (2) Acute kidney injury superimposed on chronic kidney disease: Status: Acute (3) Hospital-acquired pneumonia: Status: Acute (4) Acute respiratory failure with hypoxia and hypercapnia: Status: Acute (5) Recent non-ST elevation myocardial infarction: Status: Acute (6) Bilateral pleural effusion: Status: Acute # Acute respiratory failure likely secondary to CHF exacerbation #Worsening renal failure in patient with CKD stage III -secondary to cardiorenal #Bilateral pleural effusions due to cardiac and renal failure-less likely infectious #S/p thoracentesis right pleural effusion drained 1100 cc straw-colored transudative fluid on 08/12/2020-seems like recurring on chest x-ray today morning -Received IV fluids yesterday and creatinine is stable ; continue diuresis and DC fluids -Strictly monitor I&O -Tolerating extubation acute respiratory distress -Cardiology to evaluate for CHF -If patient continues to spike fevers/leukocytosis-look for other infectious sources like heel decubiti -Both renal and cardiology is following the case -Patient respiratory status seems stable post extubation today; if patient is stable respiratory ch and able to maintain renal functions and maintains good urine output; reduce daily weight -we will hold off draining for now. Any deterioration of respiratory status-plan left-sided thoracentesis for symptomatic relief. Recommendations conveyed to hospitalist covering the case Attestations Medical Necessity Statement*: Acute respiratory failure due to bilateral pleural effusions and patient with CHF and cardiorenal failure Time Spent in Patient Care: Greater than 35 minutes (>than 50% of time spent in counselling and/or direct pt care on unit). Critical Care Time: Critical Care Time (min): 45 Coding Level of Care Code Established Pt Acute Emotional Support Teacher for [facility] Patient Type Established History Comprehensive Exam Comprehensive Medical Decision Making Moderate Complexity Diagnoses Acute exacerbation of CHF (congestive heart failure) I50.33 Heart failure type: diastolic Acute kidney injury superimposed on chronic kidney disease N17.9; N18.9 Hospital-acquired pneumonia J18.9; Y95 Acute respiratory failure with hypoxia and hypercapnia J96.01; J96.02 Recent non-ST elevation myocardial infarction Bilateral pleural effusion J90 Time Spent (min) 45
[2020-08-14] VITALS (37 sets, daily range): BP systolic 121–187; BP diastolic 57–110; PULSE 61–91; RESP 13–24; TEMP 36.6–37.6; O2SAT 95–99
[2020-08-14 03:54] LABS: Basophils # 0.1 10^3/uL (0.0-0.1); Basophils % 0.7 %; Eosinophils # 0.6 10^3/uL (0.0-0.8); Eosinophils % 4.5 %; Hematocrit 30.2 % (37.0-47.0); Hemoglobin 9.1 g/dL (11.5-15.3); Lymphocytes % 8.6 %; Mean Corpuscular HGB Conc 30.1 g/dL (30.0-36.0); Mean Corpuscular Hemoglobin 28.4 pg (28.0-34.0); Mean Corpuscular Volume 94.4 fL (81-99); Mean Platelet Volume 10.7 fL (7.4-10.4); Monocytes # 0.7 10^3/uL (0.2-0.9); Monocytes % 5.7 %; Neutrophils # 9.68 10^3/uL (1.8-7.7); Neutrophils % 80.1 %; Nucleated Red Blood Cells % 0 %; Platelet Count 302 10^3/cmm (130-400); White Blood Count 12.1 10^3/uL (4.0-10.0)
[2020-08-14 05:38] LABS: Procalcitonin 0.65 ng/mL (0-0.5)
[2020-08-14 05:49] LABS: Alanine Aminotransferase 11 U/L (0-33); Albumin Level 2.5 g/dL (3.5-5.2); Alkaline Phosphatase 62 IU/L (35-105); Blood Urea Nitrogen 45 mg/dL (8-23); Carbon Dioxide 15 mmol/L (22-29); Creatinine Clr Calc Pharmacy 16.2269; Globulin 3.4 g/dL (1.3-4.6); Glucose 104 mg/dL (65-115); Magnesium 2.1 mg/dL (1.7-2.3); Phosphorus 4.9 mg/dL (2.5-4.5); Total Bilirubin 0.4 mg/dL (0.15-1.2); Total Protein 5.9 g/dL (6.6-8.7)
[2020-08-14 07:01] LABS: Anion Gap 21.1 (5-19); Aspartate Amino Transferase 23 U/L (0-32); Chloride 103 mmol/L (98-107); Osmolality Calculated 292 mOsm/kg (285-295); Potassium 4.1 mmol/L (3.5-5.1); Sodium 135 mmol/L (136-145)
[2020-08-14 07:17] LABS: Calcium 8.3 mg/dL (8.5-10.5)
--- NOTE | 2020-08-14 07:22 | PC.NURSE ---
ANXIETY Patient requested that BIPAP be put on. Patient states that she does not want to and has asked frequently what her oxygen saturation is this shift. Patient reassured and calmed by nurse. Once patient knew her oxygen was good, she seemed more calm.
--- NOTE | 2020-08-14 07:23 | PC.NURSE ---
ASPIRATION Patient taken off BIPAP to give a drink of water. Patient instantly coughed once swallowed. Dr. Asencio notified and gave order to make patient NPO and to order speech evaluation.
--- NOTE | 2020-08-14 07:26 | PC.NURSE ---
SHIFT SUMMARY Patient on BIPAP this shift with mild anxiety about oxygen saturation and NPO status. Patient had 400 mL dark yellow urine ouput and has been alert and oriented this shift.
[2020-08-14 07:55] LABS: Glucose Point of Care 106 mg/dL (70-110)
[2020-08-14] MEDS: cefepime 1,000 MG in sodium chloride 0.9% (plus) 50 ML 100 MG IV (07:56)
[2020-08-14] MEDS: linezolid premix 600 MG/300 ML PREMIX 300 MG IV ×2 (08:00→20:04)
[2020-08-14] MEDS: sodium chloride 0.9% (100 ml) 100 ML (08:19)
[2020-08-14] MEDS: carvedilol 3.125 mg Tablet PO ×2 (08:19→18:41)
--- NOTE | 2020-08-14 08:40 | P.PN_ITS ---
Subjective Medications: Reviewed: Yes Vitals/I&O/Wt Last Vital Signs Temp 99.4 F 08/13/20 09:00 Pulse 72 08/14/20 07:00 Resp 20 H 08/14/20 07:00 BP 154/79 08/14/20 07:00 Pulse Ox 96 08/14/20 07:00 08/13/20 08/14/20 08/14/20 22:59 06:59 14:59 Intake Total 220 / 520 300 / 820 Output Total 250 / 450 400 / 850 Balance -30 / 70 -100 / -30 Physical Exam Urinary Catheter Management^: Mcfarland: Cath Placed During This Visit: yes Reason for Continuing Indwelling Catheter: Accurate Measurement of Urinary Output in Critically Ill Patients Urinary Catheter Date of Insertion: 08/09/20 Urinary Catheter Time of Insertion: 22:15 Data : 08/14/20 03:15 08/14/20 03:15 Micro: Microbiology 08/10/20 17:55 Gram Stain - Final Sputum - Endotracheal Tube Aspirate Sputum Culture - Final A&P Additional A&P Information 1. Acute kidney injury 2. Congestive heart failure 3. Pneumonia 4. Metabolic acidosis 5. Anemia Recommend: add sodium bicarbonate Coding Level of Care Code Acute Ophthalmic Medical Technician for [facility]
[2020-08-14] MEDS: morphine 4 mg/mL SDV 1 mL 1 MG IVP ×2 (08:47→22:45)
--- NOTE | 2020-08-14 09:03 | XR_ITS ---
WS: [id number] Portable AP semiupright chest, 08/14/2020 Clinical Data: follow up resp failure Comparison: Portable chest, 08/13/2020 Findings: The nasogastric tube and endotracheal tube are no longer present. The heart remains enlarge d. There are bilateral pleural effusions more on the left than the right. There are bilateral basilar opacities which remain the same. Monitor leads are on the chest wall. XR/XR chest 1V portable [id number] Impression: 1. Removal of nasogastric tube and endotracheal tube. 2. No change in bilateral pleural effusions. 3. No change in cardiomegaly and bilateral pulmonary opacities.
[2020-08-14] MEDS: LORazepam 2 mg/mL INJ 1 mL 0.5 MG IVP (09:10)
[2020-08-14] MEDS: FUROsemide 10 mg/mL SDV 10mL 60 MG IVP (09:15)
--- NOTE | 2020-08-14 11:50 | P.PN_ITS ---
Subjective Subjective: Interval history: extubated, feels weak but no other complaints Medications: Reviewed: Yes Vitals/I&O/Wt Last Vital Signs Temp 97.8 F 08/14/20 10:00 Pulse 65 08/14/20 11:06 Resp 17 08/14/20 11:00 BP 160/110 08/14/20 11:00 Pulse Ox 95 08/14/20 11:06 08/13/20 08/14/20 08/14/20 22:59 06:59 14:59 Intake Total 220 / 520 300 / 820 350 / 350 Output Total 250 / 450 400 / 850 100 / 100 Balance -30 / 70 -100 / -30 250 / 250 Physical Exam Const: COMMON NORMALS: no acute distress Extremity: GENERAL: No edema Urinary Catheter Management^: Mcfarland: Cath Placed During This Visit: yes Reason for Continuing Indwelling Catheter: Accurate Measurement of Urinary Output in Critically Ill Patients Urinary Catheter Date of Insertion: 08/09/20 Urinary Catheter Time of Insertion: 22:15 Data : 08/14/20 03:15 08/14/20 03:15 Micro: Microbiology 08/12/20 18:20 Gram Stain - Final Pleural Fluid Anaerobic Culture - Preliminary Body Fluid Culture - Preliminary 08/10/20 17:55 Gram Stain - Final Sputum - Endotracheal Tube Aspirate Sputum Culture - Final A&P Additional A&P Information 1. Acute kidney injury, nonoliguric, improving 2. Congestive heart failure, received IV lasix today 3. Pneumonia 4. Metabolic acidosis 5. Anemia, Hb stable Recommend: add sodium bicarbonate Attestations Medical Necessity Statement*: per primary service Time Spent in Patient Care: 16 - 35 minutes Coding Level of Care Code Acute Newspaper Subscription Solicitor for [facility] Exam Expanded Problem Focused
--- NOTE | 2020-08-14 13:36 | P.PN_ITS ---
Subjective Subjective: Interval history: Elizabeth was on BiPAP when I visited her this morning. Short of breath. Anxious. Medications: Reviewed: Yes Vitals/I&O/Wt Last Vital Signs Temp 97.8 F 08/14/20 10:00 Pulse 79 08/14/20 13:20 Resp 17 08/14/20 11:00 BP 160/110 08/14/20 11:00 Pulse Ox 95 08/14/20 13:20 08/13/20 08/14/20 08/14/20 22:59 06:59 14:59 Intake Total 220 / 520 300 / 820 350 / 350 Output Total 250 / 450 400 / 850 100 / 100 Balance -30 / 70 -100 / -30 250 / 250 Physical Exam Narrative: EXAM NARRATIVE: General exam no apparent distress, interactive HEENT. Currently on BiPAP Cardiovascular regular rate and rhythm without murmur Lungs clear but with diminished breath sounds bilaterally Abdomen is soft, positive bowel sounds Extremities no cyanosis clubbing . right heel ulcer has dressing. No surrounding erythema or edema Urinary Catheter Management^: Mcfarland: Cath Placed During This Visit: yes Reason for Continuing Indwelling Catheter: Accurate Measurement of Urinary Output in Critically Ill Patients Urinary Catheter Date of Insertion: 08/09/20 Urinary Catheter Time of Insertion: 22:15 Data : 08/14/20 03:15 08/14/20 03:15 Micro: Microbiology 08/12/20 18:20 Gram Stain - Final Pleural Fluid Anaerobic Culture - Preliminary Body Fluid Culture - Preliminary 08/10/20 17:55 Gram Stain - Final Sputum - Endotracheal Tube Aspirate Sputum Culture - Final A&P Assessment and plan (1) Acute exacerbation of CHF (congestive heart failure): Appreciate cardiology consultation 60 mg of Lasix IV x1 Discontinue IV fluids Continued close follow-up of renal function Suspect an element of cardiorenal syndrome Presentation consistent with acute diastolic heart failure. Last EF 55%, moderate aortic valve stenosis with valve area of 1.1, and grade 2 diastolic dysfunction. I believe cardiology is going to repeat echocardiogram today. Status: Acute Qualifiers: Heart failure type: diastolic Qualified Code(s): I50.33 - Acute on chronic diastolic (congestive) heart failure (2) Acute kidney injury superimposed on chronic kidney disease: Renal function slightly improved Recent renal ultrasound no obstruction Avoid renal toxic medication Hold ARB Nephrology consultation appreciated Secondary to metabolic acidosis bicarbonate was added by nephrology Status: Acute (3) Sepsis: Continue linezolid and cefepime. Plan 7 days IV antibiotics Await sputum and blood culture MRSA PCR pending Status: Acute (4) Hospital-acquired pneumonia: Antibiotics as noted above Bilateral pleural effusions noted. Thoracentesis occurred 1/6 per pulmonary and 1100 cc of transudate of fluid was removed. It is possible she may need a [place] drain. This will need to be determined depending upon her clinical course. Suspect another thoracentesis may be needed. Status: Acute (5) Acute respiratory failure with hypoxia and hypercapnia: BiPAP. Wean off as tolerated. Status: Acute Additional A&P Information Acute hypoxic hypercarbic respiratory failure. Secondary to pneumonia and CHF exacerbation Elevated troponin. Secondary to acute systolic heart failure as well as renal dysfunction. No significant delta. I do not believe she needs full anticoagulation at this time. Edema. Venous duplex negative for DVT History of anemia and recent transfusion. Holding heparin currently secondary to significant GI bleed previous hospital stay, significant anemia. Hemoglobin stable currently. Peripheral vascular disease. Keep pressure off right heel History of chronic blood loss anemia. Recent history of EGD showing gastritis and duodenitis. Continue Protonix. This has been changed to IV every 24 hours History of hypertension Anxiety. Ativan as needed. Pulmonary is adding Precedex. Full code DVT prophylaxis with heparin subcutaneous Attestations Medical Necessity Statement*: Needs continued hospital stay for further angela tment of respiratory failure secondary to congestive heart failure. Still requiring BiPAP, and clinical condition is tenuous. 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
--- NOTE | 2020-08-14 15:19 | PC.SLP ---
Pt received Ativan this morning, and is not able to maintain alertness to participate in a PREDATORY HUNTER/dysphagia evaluation at this time.
--- NOTE | 2020-08-14 17:19 | P.PN_ITS ---
Subjective Subjective: Interval history: Patient is on a BiPAP of 40% oxygen. She is sleepy/sedated. Has not had any cardiac arrhythmias. She was given a extra dose of Lasix this morning. No chest pain or cardiac arrhythmia. Medications: Medication Review Details: Current Medications Acetaminophen (Acetaminophen 325 Mg Tablet) 650 mg PO Q6H PRN PRN Reason: FEVER Last Admin: 08/11/20 15:34 Dose: 650 mg Documented by: Albuterol/Ipratropium (Ipratropium-Albuterol 3 Ml Neb) 3 ml INHALATION Q6H.RESPIRATORY PRN PRN Reason: SHORTNESS OF BREATH Last Admin: 08/13/20 20:35 Dose: 3 ml Documented by: Atorvastatin Calcium (Atorvastatin 40 Mg Tablet) 80 mg PO BEDTIME KIMBERLY Last Admin: 08/13/20 22:42 Dose: Not Given Documented by: Carvedilol (Carvedilol 3.125 Mg Tablet) 3.125 mg PO BID [facility] Last Admin: 08/14/20 08:19 Dose: 3.125 mg Documented by: Cefepime HCl 1,000 mg/ Sodium (Chloride) 50 mls @ 100 mls/hr IV Q24H [facility]; Protocol Last Infusion: 08/14/20 10:45 Dose: Infused Documented by: Dexmedetomidine HCl 400 mcg/ (Sodium Chloride) 104 mls @ 0 mls/hr IV .Q0M [facility]; Protocol Last Titration: 08/11/20 14:36 Dose: 0 mcg/kg/hr, 0 mls/hr Documented by: Linezolid (Zyvox Premix) 600 mg in 300 mls @ 300 mls/hr IV Q12H [facility] Last Infusion: 08/14/20 10:45 Dose: Infused Documented by: Lorazepam (Lorazepam 2 Mg/Ml Inj 1 Ml) 0.5 mg IVP Q4H PRN PRN Reason: ANXIETY Last Admin: 08/14/20 09:10 Dose: 0.5 mg Documented by: Morphine Sulfate (Morphine 4 Mg/Ml Sdv 1 Ml) 1 mg IVP Q2H PRN PRN Reason: SEVERE PAIN Last Admin: 08/14/20 08:47 Dose: 1 mg Documented by: Ondansetron HCl (Ondansetron 2 Mg/Ml Sdv 2 Ml) 4 mg IVP Q4H PRN PRN Reason: NAUSEA AND VOMITING Pantoprazole Sodium (Pantoprazole 40 Mg Sdv) 40 mg IVP Q24H [facility] Last Admin: 08/13/20 17:22 Dose: 40 mg Documented by: Sodium Bicarbonate (Sodium Bicarbonate 650 Mg Tablet) 650 mg PO TID [facility] Last Admin: 08/14/20 16:27 Dose: Not Given Documented by: Vitals/I&O/Wt Last Vital Signs Temp 97.8 F 08/14/20 10:00 Pulse 63 08/14/20 17:00 Resp 15 08/14/20 17:00 BP 156/69 08/14/20 17:00 Pulse Ox 96 08/14/20 17:00 08/14/20 08/14/20 08/14/20 06:59 14:59 22:59 Intake Total 300 / 820 350 / 350 Output Total 400 / 850 600 / 600 Balance -100 / -30 -250 / -250 Physical Exam Narrative: EXAM NARRATIVE: GENERAL: The patient is sleepy and is on BiPAP with a 40% oxygen HEENT: No significant pallor, icterus or lymphadenopathy.Oral cavity: There are no mucous membrane lesions. NECK: Trachea appears to be central. No masses noted. No JVD or thyromegaly appr eciated. RESPIRATORY: Chest is symmetrical. No intercostals muscle retraction or any accessory muscle activation. There is no chest wall tenderness. Breath sounds are heard bilaterally. Breath sounds are diminished at the bases more so on the left side BREASTS: Deferred. HEART: The heart sounds are normal. No S3 or S4. Short systolic murmur on the left sternal border.. No pericardial rub ABDOMEN: No vessel pulsations or distention. No tenderness. No organomegaly appreciated. Bowel sounds are normally heard. : Deferred. RECTAL: Deferred. LYMPHATIC: No lymphadenopathy noted in the neck or groin. EXTREMITIES: Trace to 1+ edema. No cyanosis. Nonhealing ulcers on both heel. Black eschar present MUSCULOSKELETAL: No acute joint deformities or swelling SKIN: There are no significant rashes or ecchymosis. Ulcers as mentioned above NEUROPSYCHIATRIC: Patient is sleepy, on BiPAP Urinary Catheter Management^: Mcfarland: Cath Placed During This Visit: yes Reason for Continuing Indwelling Catheter: Accurate Measurement of Urinary Output in Critically Ill Patients Urinary Catheter Date of Insertion: 08/09/20 Urinary Catheter Time of Insertion: 22:15 Data : 08/14/20 03:15 08/14/20 03:15 Micro: Microbiology 08/12/20 18:20 Gram Stain - Final Pleural Fluid Anaerobic Culture - Preliminary Body Fluid Culture - Preliminary 08/10/20 17:55 Gram Stain - Final Sputum - Endotracheal Tube Aspirate Sputum Culture - Final A&P Assessment and plan (1) Acute respiratory failure with hypoxia and hypercapnia: The patient is currently extubated. Patient seems to have recurrent pleural effusion. Scheduled for a thoracentesis today. Status: Acute (2) Recent non-ST elevation myocardial infarction: Patient had features of a non-ST elevation myocardial infarction, during the previous hospital admission. Her current troponin T is are negative for acute myocardial injury. Consider cardiac catheterization/peripheral angiogram as she gets more stable Status: Acute (3) Acute kidney injury superimposed on chronic kidney disease: BUN/creatinine still stays high. Status: Acute (4) Acute exacerbation of CHF (congestive heart failure): Seems to have intermittent pulmonary edema. Currently seems stable Status: Acute Qualifiers: Heart failure type: diastolic Qualified Code(s): I50.33 - Acute on chronic diastolic (congestive) heart failure (5) Peripheral arterial disease: Patient has no resting claudication at this point. We will continue the current management. Status: Acute Additional A&P Information May consider doing a myocardial perfusion imaging once her clinical status is little more stable May continue the current measures for the time being. 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
[2020-08-14] MEDS: pantoprazole 40 mg SDV IVP (17:45)
[2020-08-14] MEDS: sodium bicarbonate 650 mg Tablet PO (20:07)
[2020-08-14] MEDS: atorvastatin 40 mg Tablet 80 MG PO (20:07)
--- NOTE | 2020-08-14 22:30 | PC.NURSE ---
Patient reported bilateral foot pain, PRN morphine given per MAR and orders. Patient is now resting in room with eyes closed on bipap.
--- NOTE | 2020-08-14 22:44 | PM.PN ---
Subjective Subjective: Interval history: Patient was agitated today morning and was given 1 dose of Ativan, later patient was very drowsy and placed on BiPAP of 40% oxygen. She is sleepy/sedated. Has not had any cardiac arrhythmias. Received extra dose of Lasix this morning. Medications: Reviewed: Yes Medication Review Details: Current Medications Acetaminophen (Acetaminophen 325 Mg Tablet) 650 mg PO Q6H PRN PRN Reason: FEVER Last Admin: 08/11/20 15:34 Dose: 650 mg Documented by: Albuterol/Ipratropium (Ipratropium-Albuterol 3 Ml Neb) 3 ml INHALATION Q6H.RESPIRATORY PRN PRN Reason: SHORTNESS OF BREATH Last Admin: 08/13/20 20:35 Dose: 3 ml Documented by: Atorvastatin Calcium (Atorvastatin 40 Mg Tablet) 80 mg PO BEDTIME KIMBERLY Last Admin: 08/13/20 22:42 Dose: Not Given Documented by: Carvedilol (Carvedilol 3.125 Mg Tablet) 3.125 mg PO BID KIMBERLY Last Admin: 08/14/20 08:19 Dose: 3.125 mg Documented by: Cefepime HCl 1,000 mg/ Sodium (Chloride) 50 mls @ 100 mls/hr IV Q24H [facility]; Protocol Last Infusion: 08/14/20 10:45 Dose: Infused Documented by: Dexmedetomidine HCl 400 mcg/ (Sodium Chloride) 104 mls @ 0 mls/hr IV .Q0M [facility]; Protocol Last Titration: 08/11/20 14:36 Dose: 0 mcg/kg/hr, 0 mls/hr Documented by: Linezolid (Zyvox Premix) 600 mg in 300 mls @ 300 mls/hr IV Q12H KIMBERLY Last Infusion: 08/14/20 10:45 Dose: Infused Documented by: Lorazepam (Lorazepam 2 Mg/Ml Inj 1 Ml) 0.5 mg IVP Q4H PRN PRN Reason: ANXIETY Last Admin: 08/14/20 09:10 Dose: 0.5 mg Documented by: Morphine Sulfate (Morphine 4 Mg/Ml Sdv 1 Ml) 1 mg IVP Q2H PRN PRN Reason: SEVERE PAIN Last Admin: 08/14/20 08:47 Dose: 1 mg Documented by: Ondansetron HCl (Ondansetron 2 Mg/Ml Sdv 2 Ml) 4 mg IVP Q4H PRN PRN Reason: NAUSEA AND VOMITING Pantoprazole Sodium (Pantoprazole 40 Mg Sdv) 40 mg IVP Q24H [facility] Last Admin: 08/13/20 17:22 Dose: 40 mg Documented by: Sodium Bicarbonate (Sodium Bicarbonate 650 Mg Tablet) 650 mg PO TID [facility] Last Admin: 08/14/20 16:27 Dose: Not Given Documented by: Vitals/I&O/Wt Last Vital Signs Temp 99.6 F 08/14/20 20:00 Pulse 71 08/14/20 22:00 Resp 19 H 08/14/20 22:00 BP 152/69 08/14/20 22:00 Pulse Ox 96 08/14/20 22:00 08/14/20 08/14/20 08/14/20 06:59 14:59 22:59 Intake Total 300 / 820 350 / 350 300 / 650 Output Total 400 / 850 600 / 600 Balance -100 / -30 -250 / -250 300 / 50 Physical Exam Narrative: EXAM NARRATIVE: PHYSICAL EXAM: General: Sleeping in bed after receiving Ativan HEENT:NCAT, PERRLA, EOMI Neck: Supple Lungs: Reduced breath sounds bilateral lower lungs; left more than right Heart: s1/s2, RRR Abd: soft, NT, ND, BS + Normoactive Extremities: No edema; bilateral heel decubiti covered with pressure dressings 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 receiving 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 SKIN: no rash Urinary Catheter Management^: Mcfarland: Cath Placed During This Visit: yes Reason for Continuing Indwelling Catheter: Accurate Measurement of Urinary Output in Critically Ill Patients Urinary Catheter Date of Insertion: 08/09/20 Urinary Catheter Time of Insertion: 22:15 Data : 08/14/20 03:15 08/14/20 03:15 Micro: Microbiology 08/12/20 18:20 Gram Stain - Final Pleural Fluid Anaerobic Culture - Preliminary Body Fluid Culture - Preliminary A&P Assessment and plan (1) Acute exacerbation of CHF (congestive heart failure): Status: Acute Qualifiers: Heart failure type: diastolic Qualified Code(s): I50.33 - Acute on chronic diastolic (congestive) heart failure (2) Acute kidney injury superimposed on chronic kidney disease: Status: Acute (3) Hospital-acquired pneumonia: Status: Acute (4) Acute respiratory failure with hypoxia and hypercapnia: Status: Acute (5) Recent non-ST elevation myocardial infarction: Status: Acute (6) Bilateral pleural effusion: Status: Acute # Acute respiratory failure likely secondary to CHF exacerbation #Worsening renal failure in patient with CKD stage III -secondary to cardiorenal #Bilateral pleural effusions due to cardiac and renal failure-less likely infectious #S/p thoracentesis right pleural effusion drained 1100 cc straw-colored transudative fluid on 08/12/2020-seems like recurring on chest x-ray today morning -Anxious and uncooperative received 1 dose of Ativan and is sleepy since then -Recommended Precedex drip for anxiety -On BiPAP 22/05 on 40% FiO2 -Strictly monitor I&O -Chest x-ray showing bilateral worsening pleural effusions -will do left-sided thoracentesis for improving ventilation tomorrow morning -Given extra dose of Lasix as creatinine is stable -CMP showing increased anion gap acidosis likely secondary to renal failure and bicarb 15 -Renal consulted and started on sodium bicarbonate tablets -Currently on cefepime and Linezolid; Procalcitonin 0.65 likely due to renal insufficiency -If patient continues to spike fevers/leukocytosis-look for other infectious sources like heel decubiti -Both renal and cardiology is following the case - plan left-sided thoracentesis for symptomatic relief tomorrow Recommendations conveyed to hospitalist covering the case Attestations Medical Necessity Statement*: Patient still in respiratory distress secondary to recurrent pleural effusions due to cardiac and renal failure need close monitoring for respiratory status. Time Spent in Patient Care: Greater than 35 minutes (>than 50% of time spent in counselling and/or direct pt care on unit). 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
[2020-08-15] VITALS (32 sets, daily range): BP systolic 121–162; BP diastolic 59–86; PULSE 57–77; RESP 12–24; TEMP 36.2–37.7; O2SAT 96–100
--- NOTE | 2020-08-15 02:00 | PC.NURSE ---
Patient resting in room, no s/s of distress noted. Patient did request fluids to drink, however, patient is NPO until speech evaluation.
--- NOTE | 2020-08-15 02:01 | PC.NURSE ---
Dr. Wright called earlier this shift and was checking mentation status of patient. Patient is alert and orientated when asked questions. Due to sedation level during previous shift, Dr. Wright does not want Ativan given for anxiety and would like Precedex started per titation protocol if needed for anxiety in patient.
[2020-08-15 03:47] LABS: Basophils # 0.1 10^3/uL (0.0-0.1); Basophils % 0.6 %; Eosinophils # 0.3 10^3/uL (0.0-0.8); Eosinophils % 2.3 %; Hematocrit 27.8 % (37.0-47.0); Hemoglobin 8.9 g/dL (11.5-15.3); Lymphocytes # 0.9 10^3/uL (0.8-4.8); Lymphocytes % 7.4 %; Mean Corpuscular Hemoglobin 28.3 pg (28.0-34.0); Mean Corpuscular Volume 88.5 fL (81-99); Mean Platelet Volume 10.8 fL (7.4-10.4); Monocytes # 0.6 10^3/uL (0.2-0.9); Monocytes % 5.4 %; Neutrophils % 83.9 %; Nucleated Red Blood Cells % 0 %; Platelet Count 263 10^3/cmm (130-400); Red Blood Count 3.14 10^6/uL (4.1-5.3); Red Cell Distribution Width 14.6 % (12.1-15.1); White Blood Count 11.8 10^3/uL (4.0-10.0)
[2020-08-15 04:14] LABS: Anion Gap 15.9 (5-19); Blood Urea Nitrogen 43 mg/dL (8-23); Calcium 8.2 mg/dL (8.5-10.5); Carbon Dioxide 20 mmol/L (22-29); Chloride 103 mmol/L (98-107); Glucose 96 mg/dL (65-115); Osmolality Calculated 291 mOsm/kg (285-295); Potassium 3.9 mmol/L (3.5-5.1); Sodium 135 mmol/L (136-145)
[2020-08-15] MEDS: cefepime 1,000 MG in sodium chloride 0.9% (plus) 50 ML 100 MG IV (06:00)
--- NOTE | 2020-08-15 06:19 | PC.NURSE ---
No changes this shift, continue care
--- NOTE | 2020-08-15 06:53 | PM.PN ---
Subjective Subjective: Interval history: No complaints, on BiPAP. Plan for thoracentesis this morning. Medications: Reviewed: Yes Vitals/I&O/Wt Last Vital Signs Temp 99.6 F 08/15/20 02:00 Pulse 63 08/15/20 06:16 Resp 19 H 08/15/20 06:00 BP 162/70 08/15/20 06:00 Pulse Ox 97 08/15/20 06:16 08/14/20 08/14/20 08/15/20 14:59 22:59 06:59 Intake Total 350 / 350 300 / 650 Output Total 600 / 600 550 / 1150 Balance -250 / -250 300 / 50 -550 / -500 Physical Exam Const: GENERAL APPEARANCE: cooperative Extremity: GENERAL: Yes edema Urinary Catheter Management^: Mcfarland: Cath Placed During This Visit: yes Reason for Continuing Indwelling Catheter: Accurate Measurement of Urinary Output in Critically Ill Patients Urinary Catheter Date of Insertion: 08/09/20 Urinary Catheter Time of Insertion: 22:15 Data : 08/15/20 03:16 08/15/20 03:16 Micro: Microbiology 08/10/20 03:15 Blood Culture - Final Blood NO GROWTH AFTER 5 DAYS 08/10/20 02:45 Blood Culture - Final Blood NO GROWTH AFTER 5 DAYS 08/12/20 18:20 Gram Stain - Final Pleural Fluid Anaerobic Culture - Preliminary Body Fluid Culture - Preliminary A&P Additional A&P Information 1. Acute kidney injury, nonoliguric, I/O negative, stable 2. Congestive heart failure 3. Pneumonia 4. Metabolic acidosis, improved 5. Anemia, Hb stable Recommend: Continue oral sodium bicarbonate. Keep I/O negative Attestations Medical Necessity Statement*: per primary service Time Spent in Patient Care: 16 - 35 minutes Coding Level of Care Code Acute [employer]er [employer] for Janice Long
[2020-08-15] MEDS: dexmedetomidine 400 MCG in sodium chloride 0.9% (100 ml) 100 ML IV (08:40)
[2020-08-15] MEDS: morphine 4 mg/mL SDV 1 mL 1 MG IVP ×2 (08:55→15:13)
--- NOTE | 2020-08-15 10:11 | P.PCN_ITS ---
Procedure/Consent Procedure Narrative: Pulmonary & Critical Care Medicine Procedure -Left sided Thoracentesis Procedure: Left sided Thoracentesis Indication: left Pleural effusion in pt with cardiorenal syndrome on BIPAP to facilitate ventilation Tool Honing Machine Set Up Operator(s): Elio Wright MD Consent: Signed and placed in chart Anesthesia: 10 cc 1% lidocaine without epinephrine Description: Left sided pleural effusion was localized using ultrasound guidance and the site was marked accordingly. After chlorhexidine skin prep, area was draped in a sterile manner. 1% lidocaine was used for local anesthesia. Thoracentesis catheter was then inserted into the pleural space with aspiration of 600 cc of pleural fluid. Appearance was straw colored. Ultrasound guidance used:yes EBL: 5-10 cc Complications: None PCXR: No residual left pleural effusion visible after thoracentesis. No evidence of pneumothorax.
--- NOTE | 2020-08-15 10:16 | XRR_ITS ---
PROCEDURE INFORMATION: Exam: XR Chest, 1 View Exam date and time: 08/15/2020 10:45 AM Age: 75 years old Clinical indication: Other: Post lest thoracentesis; Additional info: Post left thoracentesis TECHNIQUE: Imaging protocol: XR of the chest Views: 1 view. COMPARISON: CR XR chest 1V portable [id number] 08/14/2020 9:13 AM FINDINGS: Lungs: Improved aeration of the right lung base. Diffuse interstitial opacities consistent with edema, similar to prior. Pleural space: No residual left pleural effusion visible after thoracentesis. No evidence of pneumothorax. Heart/Mediastinum: Cardiac silhouette remains moderately enlarged. Bones/joints: No acute bony abnormality. XR/XR chest 1V portable [id number] IMPRESSION: 1. No residual left pleural effusion visible after thoracentesis. No evidence of pneumothorax. 2. Improved aeration right lung base.
[2020-08-15 10:57] LABS: Body Fluid Polynuclear #Cells 0.011; Body Fluid WBC 54 /uL; Monocytes # Body Fluid 0.043; RBC, Body Fluid 0 10^3/uL
[2020-08-15 11:13] LABS: Apprearance, Body Fluid CLEAR; Color, Body Fluid PALE YELLOW; PATH Referral YES
[2020-08-15] MEDS: linezolid premix 600 MG/300 ML PREMIX 300 MG IV ×2 (11:13→19:53)
[2020-08-15] MEDS: sodium bicarbonate 650 mg Tablet PO ×3 (11:17→21:16)
[2020-08-15] MEDS: HYDROcodone-acetaminophen 5-325 mg Tablet 1 TAB PO ×2 (11:18→18:30)
[2020-08-15] MEDS: carvedilol 3.125 mg Tablet PO ×2 (11:18→18:34)
[2020-08-15 12:03] LABS: Albumin Body Fluid 0.9 g/dL; Amylase Body Fluid 22 U/L; Cholesterol Body Fluid 17 mg/dL (0-200); LDH Body Fluid 72 U/L
[2020-08-15 12:04] LABS: Total Protein Pleural Fluid 1.4 g/dL; Triglycerides Body Fluid 40 mg/dL (0-150); Uric Acid Body Fluid 9 mg/dL
[2020-08-15 13:00] LABS: Body Fluid Specific Gravity 1.005
[2020-08-15 13:01] LABS: Fluid Alkaline Phos. 6 IU/L
--- NOTE | 2020-08-15 13:12 | P.PN_ITS ---
Subjective Subjective: Interval history: - No acute events overnight. Patient mentation much better and she is awake. - On BiPAP 16/10 and 40%. - I performed left-sided thoracentesis and to code 600 cc fluid to facilitate better ventilation. - Recommended RN to start Precedex if patient becomes anxious again -Patient receiving morphine 1 mg every 6 as needed for her heel pain but the pain is not well controlled so added [place] 5/325 every 6 hours as needed -Patient is net -500 cc over last 24 hours - labs reveal improving BUN and creatinine and metabolic acidosis on p.o. sodium bicarbonate Medications: Reviewed: Yes Medication Review Details: Current Medications Acetaminophen (Acetaminophen 325 Mg Tablet) 650 mg PO Q6H PRN PRN Reason: FEVER Last Admin: 08/11/20 15:34 Dose: 650 mg Documented by: Albuterol/Ipratropium (Ipratropium-Albuterol 3 Ml Neb) 3 ml INHALATION Q6H.R ESPIRATORY PRN PRN Reason: SHORTNESS OF BREATH Last Admin: 08/13/20 20:35 Dose: 3 ml Documented by: Atorvastatin Calcium (Atorvastatin 40 Mg Tablet) 80 mg PO BEDTIME KIMBERLY Last Admin: 08/13/20 22:42 Dose: Not Given Documented by: Carvedilol (Carvedilol 3.125 Mg Tablet) 3.125 mg PO BID KIMBERLY Last Admin: 08/14/20 08:19 Dose: 3.125 mg Documented by: Cefepime HCl 1,000 mg/ Sodium (Chloride) 50 mls @ 100 mls/hr IV Q24H KIMBERLY; Protocol Last Infusion: 08/14/20 10:45 Dose: Infused Documented by: Dexmedetomidine HCl 400 mcg/ (Sodium Chloride) 104 mls @ 0 mls/hr IV .Q0M [facility]; Protocol Last Titration: 08/11/20 14:36 Dose: 0 mcg/kg/hr, 0 mls/hr Documented by: Linezolid (Zyvox Premix) 600 mg in 300 mls @ 300 mls/hr IV Q12H KIMBERLY Last Infusion: 08/14/20 10:45 Dose: Infused Documented by: Lorazepam (Lorazepam 2 Mg/Ml Inj 1 Ml) 0.5 mg IVP Q4H PRN PRN Reason: ANXIETY Last Admin: 08/14/20 09:10 Dose: 0.5 mg Documented by: Morphine Sulfate (Morphine 4 Mg/Ml Sdv 1 Ml) 1 mg IVP Q2H PRN PRN Reason: SEVERE PAIN Last Admin: 08/14/20 08:47 Dose: 1 mg Documented by: Ondansetron HCl (Ondansetron 2 Mg/Ml Sdv 2 Ml) 4 mg IVP Q4H PRN PRN Reason: NAUSEA AND VOMITING Pantoprazole Sodium (Pantoprazole 40 Mg Sdv) 40 mg IVP Q24H [facility] Last Admin: 08/13/20 17:22 Dose: 40 mg Documented by: Sodium Bicarbonate (Sodium Bicarbonate 650 Mg Tablet) 650 mg PO TID [facility] Last Admin: 08/14/20 16:27 Dose: Not Given Documented by: Vitals/I&O/Wt Last Vital Signs Temp 98.8 F 08/15/20 09:00 Pulse 58 L 08/15/20 13:00 Resp 16 08/15/20 13:00 BP 121/86 08/15/20 13:00 Pulse Ox 99 08/15/20 13:00 08/14/20 08/15/20 08/15/20 22:59 06:59 14:59 Intake Total 300 / 650 0 / 0 Output Total 550 / 1150 Balance 300 / 50 -550 / -500 0 / 0 Physical Exam Narrative: EXAM NARRATIVE: PHYSICAL EXAM: General: Sitting in bed not in acute respiratory distress awake and following commands HEENT:NCAT, PERRLA, EOMI Neck: Supple Lungs: Reduced breath sounds bilateral lower lungs; left more than right Heart: s1/s2, RRR Abd: soft, NT, ND, BS + Normoactive Extremities: No edema; bilateral heel decubiti covered with pressure dressings SHAREPOINT APPLICATION DEVELOPER: Alert awake oriented no gross FND SKIN: no rash Urinary Catheter Management^: Mcfarland: Cath Placed During This Visit: yes Reason for Continuing Indwelling Catheter: Accurate Measurement of Urinary Output in Critically Ill Patients Urinary Catheter Date of Insertion: 08/09/20 Urinary Catheter Time of Insertion: 22:15 Data : 08/15/20 03:16 08/15/20 03:16 Micro: Microbiology 08/12/20 18:20 Gram Stain - Final Pleural Fluid Anaerobic Culture - Preliminary Body Fluid Culture - Preliminary 08/15/20 10:00 Gram Stain - Final Pleural Fluid 08/10/20 03:15 Blood Culture - Final Blood NO GROWTH AFTER 5 DAYS 08/10/20 02:45 Blood Culture - Final Blood NO GROWTH AFTER 5 DAYS A&P Assessment and plan (1) Acute exacerbation of CHF (congestive heart failure): Status: Acute Qualifiers: Heart failure type: diastolic Qualified Code(s): I50.33 - Acute on ch ronic diastolic (congestive) heart failure (2) Acute kidney injury superimposed on chronic kidney disease: Status: Acute (3) Hospital-acquired pneumonia: Status: Acute (4) Acute respiratory failure with hypoxia and hypercapnia: Status: Acute (5) Recent non-ST elevation myocardial infarction: Status: Acute (6) Bilateral pleural effusion: Status: Acute # Acute respiratory failure likely secondary to CHF exacerbation #Worsening renal failure in patient with CKD stage III -secondary to cardiorenal #Bilateral pleural effusions due to cardiac and renal failure- #S/p thoracentesis right pleural effusion drained 1100 cc straw-colored transudative fluid on 08/12/2020-seems like recurring on chest x-ray today morning -S/p left side thoracentesis 08/15/20 drained 600 cc straw-colored fluid resulted better ventilation-transudative in nature and cytology pending # b/l heel pain - pressure stage 1 decubiti - likely due to PAD -Patient mentation much better and she is awake.. -Anxious and uncooperative at times -Recommended Precedex drip for anxiety -On BiPAP 16/10 on 40% FiO2 -Strictly monitor I&O -Chest x-ray No residual left pleural effusion visible after thoracentesis. No evidence of pneumothorax. Improved aeration right lung base. -Patient on Coreg 3.125 p.o. twice daily and recommended Lasix 40 mg daily as well -Patient receiving morphine 1 mg every 6 as needed for her heel pain but the pain is not well controlled so added [place] 5/325 every 6 hours as needed -Patient is net -500 cc over last 24 hours -Can DC cefepime and Linezolid; Procalcitonin 0.65 likely due to renal insufficiency -If patient continues to spike fevers/leukocytosis-look for other infectious sources like heel decubiti -Both renal and cardiology are following the case Recommendations conveyed to hospitalist covering the case Attestations Medical Necessity Statement*: # Acute respiratory failure likely secondary to CHF exacerbation and worsening renal failure in patient with CKD stage III - secondary to cardiorenal syndrome complicated by bilateral pleural effusions due to cardiac and renal failure- Time Spent in Patient Care: Greater than 35 minutes (>than 50% of time spent in counselling and/or direct pt care on unit) . Critical Care Time: Critical Care Time (min): 45 Coding Level of Care Code Established Pt Acute Management Scientist for Chg Fwd Patient Type Established History Comprehensive Exam Comprehensive Medical Decision Making Moderate Complexity Diagnoses Acute exacerbation of CHF (congestive heart failure) I50.33 Heart failure type: diastolic Acute kidney injury superimposed on chronic kidney disease N17.9; N18.9 Hospital-acquired pneumonia J18.9; Y95 Acute respiratory failure with hypoxia and hypercapnia J96.01; J96.02 Recent non-ST elevation myocardial infarction Bilateral pleural effusion J90 Time Spent (min) 45
--- NOTE | 2020-08-15 13:59 | P.PN_ITS ---
Subjective Subjective: Interval history: 75 yo F with history of coronary artery disease, anemia, Peripheral artery disease, aortic stenosis who presented to the ER the patient was initially managed with BiPAP. She was found to have bilateral pleural effusions. This morning she underwent thoracentesis. She does have significant anxiety. She is being treated with Precedex drip. This seems to make her less sedated. She reports overall she is feeling better. The patient was also evaluated by nephrology. Recommended oral bicarb. For metabolic acidosis. The patient has also been evaluated by cardiology. Recommend possible cardiac catheterization and peripheral angiogram when she is more stable. Medications: Reviewed: Yes Vitals/I&O/Wt Last Vital Signs Temp 98.8 F 08/15/20 09:00 Pulse 58 L 08/15/20 13:00 Resp 16 08/15/20 13:00 BP 121/86 08/15/20 13:00 Pulse Ox 99 08/15/20 13:00 08/14/20 08/15/20 08/15/20 22:59 06:59 14:59 Intake Total 300 / 650 0 / 0 Output Total 550 / 1150 Balance 300 / 50 -550 / -500 0 / 0 Physical Exam Const: COMMON NORMALS: patient oriented x3 OTHER: BIPAP Resp: COMMON NORMALS: No use of accessory muscles OTHER: diminished Cardio: COMMON NORMALS: regular rate and regular rhythm RATE: regular rate RHYTHM: regular rhythm Extremity: OTHER: edema Neuro: COMMON NORMALS: patient oriented x3 and moves all extremities Urinary Catheter Management^: Mcfarland: Cath Placed During This Visit: yes Reason for Continuing Indwelling Catheter: Accurate Measurement of Urinary Output in Critically Ill Patients Urinary Catheter Date of Insertion: 08/09/20 Urinary Catheter Time of Insertion: 22:15 Data : 08/15/20 03:16 08/15/20 03:16 Micro: Microbiology 08/12/20 18:20 Gram Stain - Final Pleural Fluid Anaerobic Culture - Preliminary Body Fluid Culture - Preliminary 08/15/20 10:00 Gram Stain - Final Pleural Fluid 08/10/20 03:15 Blood Culture - Final Blood NO GROWTH AFTER 5 DAYS 08/10/20 02:45 Blood Culture - Final Blood NO GROWTH AFTER 5 DAYS A&P Assessment and plan (1) GERARD (acute kidney injury): Status: Acute (2) Acute exacerbation of CHF (congestive heart failure): Status: Acute Qualifiers: Heart failure type: diastolic Qualified Code(s): I50.33 - Acute on chronic diastolic (congestive) heart failure (3) Hospital-acquired pneumonia: Status: Acute (4) Recent non-ST elevation myocardial infarction: Status: Acute (5) Peripheral arterial disease: Status: Acute (6) Bilateral pleural effusion: Status: Acute Additional A&P Information Respiratory failure -likely multifactorial including CHF exacerbation -contine IV lasix -on BIPAP, will likely transition to high flow HCAP -continue linezolid, cefepime PUD -on PPI CAD -on lipitor, coreg, metabolic acidosis -on PO bicarb GERARD -appreciate renal recs Anxeity -ativan prn., precedex bilateral heel ulcers -protective boots PVD -possible angiogram pending clnical course Attestations Medical Necessity Statement*: Elizabeth Lima's hospital stay will require greater than 2 midnights for respiratory failure Coding Level of Care Code Acute Network Intelligence Analyst for Chg Fwd Diagnoses GERARD (acute kidney injury) N17.9 Acute exacerbation of CHF (congestive heart failure) I50.33 Heart failure type: diastolic Hospital-acquired pneumonia J18.9; Y95 Recent non-ST elevation myocardial infarction Peripheral arterial disease I73.9 Bilateral pleural effusion J90
--- NOTE | 2020-08-15 14:32 | PM.PN ---
Subjective Subjective: Interval history: Patient underwent left-sided thoracentesis today with aspiration of 600 cc of straw-colored pleural fluid. No events on telemetry. Patient is her usual cheerful self and denies any symptoms. Medications: Reviewed: Yes Medication Review Details: Current Medications Acetaminophen (Acetaminophen 325 Mg Tablet) 650 mg PO Q6H PRN PRN Reason: FEVER Last Admin: 08/11/20 15:34 Dose: 650 mg Documented by: Hydrocodone Bitart/Acetaminophen (Hydrocodone-Acetaminophen 5-325 Mg Tablet) 1 tab PO Q6H PRN PRN Reason: MODERATE PAIN Last Admin: 08/15/20 18:30 Dose: 1 tab Documented by: Albuterol/Ipratropium (Ipratropium-Albuterol 3 Ml Neb) 3 ml INHALATION Q6H.RESPIRATORY PRN PRN Reason: SHORTNESS OF BREATH Last Admin: 08/13/20 20:35 Dose: 3 ml Documented by: Atorvastatin Calcium (Atorvastatin 40 Mg Tablet) 80 mg PO BEDTIME KIMBERLY Last Admin: 08/14/20 20:07 Dose: 80 mg Documented by: Carvedilol (Carvedilol 3.125 Mg Tablet) 3.125 mg PO BID KIMBERLY Last Admin: 08/15/20 18:34 Dose: 3.125 mg Documented by: Furosemide (Furosemide 10 Mg/Ml Sdv 4ml) 40 mg IVP Q24H KIMBERLY Last Admin: 08/15/20 14:48 Dose: 40 mg Documented by: Cefepime HCl 1,000 mg/ Sodium (Chloride) 50 mls @ 100 mls/hr IV Q24H [facility]; Protocol Last Admin: 08/15/20 06:00 Dose: 100 mls/hr Documented by: Dexmedetomidine HCl 400 mcg/ (Sodium Chloride) 104 mls @ 0 mls/hr IV .Q0M [facility]; Protocol Last Admin: 08/15/20 08:40 Dose: 0.1 mcg/kg/hr, 1.4 mls/hr Documented by: Linezolid (Zyvox Premix) 600 mg in 300 mls @ 300 mls/hr IV Q12H [facility]IMBERLY Last Admin: 08/15/20 19:53 Dose: 300 mls/hr Documented by: Lorazepam (Lorazepam 2 Mg/Ml Inj 1 Ml) 0.5 mg IVP Q4H PRN PRN Reason: ANXIETY Last Admin: 08/14/20 09:10 Dose: 0.5 mg Documented by: Morphine Sulfate (Morphine 4 Mg/Ml Sdv 1 Ml) 1 mg IVP Q2H PRN PRN Reason: SEVERE PAIN Last Admin: 08/15/20 15:13 Dose: 1 mg Documented by: Ondansetron HCl (Ondansetron 2 Mg/Ml Sdv 2 Ml) 4 mg IVP Q4H PRN PRN Reason: NAUSEA AND VOMITING Pantoprazole Sodium (Pantoprazole Dr 40 Mg Tablet) 40 mg PO DAILY [facility] Last Admin: 08/15/20 19:53 Dose: 40 mg Documented by: Sodium Bicarbonate (Sodium Bicarbonate 650 Mg Tablet) 650 mg PO TID [facility] Last Admin: 08/15/20 14:48 Dose: 650 mg Documented by: Vitals/I&O/Wt Last Vital Signs Temp 98.8 F 08/15/20 09:00 Pulse 58 L 08/15/20 13:00 Resp 16 08/15/20 13:00 BP 121/86 08/15/20 13:00 Pulse Ox 99 08/15/20 13:00 08/14/20 08/15/20 08/15/20 22:59 06:59 14:59 Intake Total 300 / 650 0 / 0 Output Total 550 / 1150 Balance 300 / 50 -550 / -500 0 / 0 Physical Exam Narrative: EXAM NARRATIVE: GENERAL: Averagely built and averagely nourished in no acute distress HEENT: Extraocular movement intact. Pupils equal round reactive to light. No pallor or icterus. NECK: Mild JVD. No carotid bruit. CARDIOVASCULAR SYSTEM: S1-S2 regular. No S3 or S4 present. Grade 3/6 systolic murmur in RUSB with radiation to carotid RESPIRATORY SYSTEM: decreased breath sounds at bases. No wheezes, coarse rhonchi+; No use of accessory muscles. ABDOMEN: Soft, nontender and nondistended. Normal bowel sounds present. No hepatosplenomegaly appreciated. [] EXTREMITIES: No cyanosis or clubbing. No edema. No signs of chronic venous insufficiency. 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 No focal neurological deficits. SKIN: Normal turgor and temperature. PSYCH: Normal insight and judgment. Urinary Catheter Management^: Mcfarland: Cath Placed During This Visit: yes Reason for Continuing Indwelling Catheter: Accurate Measurement of Urinary Output in Critically Ill Patients Urinary Catheter Date of Insertion: 08/09/20 Urinary Catheter Time of Insertion: 22:15 Data : 08/15/20 03:16 08/15/20 03:16 Micro: Microbiology 08/12/20 18:20 Gram Stain - Final Pleural Fluid Anaerobic Culture - Preliminary Body Fluid Culture - Preliminary 08/15/20 10:00 Gram Stain - Final Pleural Fluid 08/10/20 03:15 Blood Culture - Final Blood NO GROWTH AFTER 5 DAYS 08/10/20 02:45 Blood Culture - Final Blood NO GROWTH AFTER 5 DAYS Attestation for Other Data: I personally reviewed and interpreted the following: Other data: TTE (07/26/20) CONCLUSIONS 1. Small left ventricular cavity size. Moderate concentric left ventricular hypertrophy. Normal left ventricle systolic function. Left ventricular ejection fraction estimated at 55%. There is possible mild hypokinesis of apical inferior and apical septal katz. grade II diastolic dysfunction, moderately elevated filling pressures. 2. Normal right ventricular size and systolic function. 3. Moderately increased left atrial size. 4. Mild mitral and tricuspid valve regurgitation. 5. Moderate aortic valve stenosis, mean gradient 17.1 mmHg, JOSE 1.1 cm squared (LVOT= 18 mm). Indexed aortic valve area of 0.7 cm squared/m squared. Dimensionless valve index of 0.46. Mild aortic valve regurgitation. 6. Right pleural effusion. 7. No prior similar studies to compare. A&P Assessment and plan (1) Acute respiratory failure with hypoxia and hypercapnia: The patient is currently extubated. Patient seems to have recurrent pleural edema. Status: Acute (2) Recent non-ST elevation myocardial infarction: -continue coreg and lipitor. -Consider cardiac catheterization once she is more stable. However, given marked anemia requiring several units of blood transfusion in last admission; it seems unlikely at present. -Plan for stress test once feasible to determine extent of ischemia. Status: Acute (3) Acute exacerbation of CHF (congestive heart failure): -Seems to have intermittent pulmonary edema. -Recurrent edema in setting of ischemia? -currently on IV lasix 40 daily. Status: Acute Qualifiers: Heart failure type: diastolic Qualified Code(s): I50.33 - Acute on chronic diastolic (congestive) heart failure (4) Acute kidney injury superimposed on chronic kidney disease: BUN/creatinine still stays high but trending down. Status: Acute (5) Peripheral arterial disease: Will need peripheral angiogram as well once feasible. Status: Acute Additional A&P Information Bilateral pleural effusion Moderate aortic stenosis Anemia Foot ulcers Attestations Medical Necessity Statement*: Needs hospital stay for CHF and worsening renal function. Coding Level of Care Code Acute Reroller Hand for Chg Fwd Diagnoses Acute respiratory failure with hypoxia and hypercapnia J96.01; J96.02 Recent non-ST elevation myocardial infarction Acute exacerbation of CHF (congestive heart failure) I50.33 Heart failure type: diastolic Acute kidney injury superimposed on chronic kidney disease N17.9; N18.9 Peripheral arterial disease I73.9
[2020-08-15] MEDS: FUROsemide 10 mg/mL SDV 4mL 40 MG IVP ×2 (14:48→21:16)
[2020-08-15] MEDS: pantoprazole DR 40 mg Tablet PO (19:53)
[2020-08-15] MEDS: atorvastatin 40 mg Tablet 80 MG PO (21:16)
[2020-08-16] VITALS (20 sets, daily range): BP systolic 121–157; BP diastolic 54–90; PULSE 56–79; RESP 9–24; TEMP 36.6–37; O2SAT 89–98
[2020-08-16 03:39] LABS: Basophils # 0.1 10^3/uL (0.0-0.1); Basophils % 0.7 %; Eosinophils # 0.3 10^3/uL (0.0-0.8); Hematocrit 31.9 % (37.0-47.0); Hemoglobin 10.2 g/dL (11.5-15.3); Lymphocytes # 0.7 10^3/uL (0.8-4.8); Lymphocytes % 6.2 %; Mean Corpuscular Hemoglobin 28.3 pg (28.0-34.0); Mean Corpuscular Volume 88.4 fL (81-99); Mean Platelet Volume 11.2 fL (7.4-10.4); Monocytes # 0.5 10^3/uL (0.2-0.9); Monocytes % 4.7 %; Neutrophils # 8.94 10^3/uL (1.8-7.7); Neutrophils % 85.1 %; Nucleated Red Blood Cells % 0 %; Platelet Count 287 10^3/cmm (130-400); Red Blood Count 3.61 10^6/uL (4.1-5.3); Red Cell Distribution Width 14.6 % (12.1-15.1); White Blood Count 10.5 10^3/uL (4.0-10.0)
[2020-08-16] MEDS: ondansetron 2 mg/ML SDV 2 mL 4 MG IVP (03:42)
[2020-08-16 04:19] LABS: Alanine Aminotransferase 11 U/L (0-33); Albumin Level 2.8 g/dL (3.5-5.2); Alkaline Phosphatase 69 IU/L (35-105); Aspartate Amino Transferase 22 U/L (0-32); Blood Urea Nitrogen 41 mg/dL (8-23); Calcium 8.5 mg/dL (8.5-10.5); Carbon Dioxide 23 mmol/L (22-29); Chloride 102 mmol/L (98-107); Globulin 3.4 g/dL (1.3-4.6); Glucose 110 mg/dL (65-115); Magnesium 1.8 mg/dL (1.7-2.3); Osmolality Calculated 293 mOsm/kg (285-295); Sodium 136 mmol/L (136-145); Total Bilirubin 0.4 mg/dL (0.15-1.2); Total Protein 6.2 g/dL (6.6-8.7)
[2020-08-16 04:40] LABS: Slide Review Slide Review Perform
--- NOTE | 2020-08-16 08:32 | P.PN_ITS ---
Subjective Subjective: Interval history: She is status post right-sided thoracentesis on 12 August with 1100 cc of straw-colored pleural fluid and left-sided thoracentesis on 15 August with 600 cc of straw-colored pleural fluid. UO 100ml , -700 ml LOS -1.4 L At the time of evaluation she was sitting in chair. She lost her IV access and currently has been transitioned to p.o. Lasix. No events on telemetry. Sinus bradycardia with heart rate in mid 40s noted at night without any symptoms. Medications: Reviewed: Yes Medication Review Details: Current Medications Acetaminophen (Acetaminophen 325 Mg Tablet) 650 mg PO Q6H PRN PRN Reason: FEVER Last Admin: 08/11/20 15:34 Dose: 650 mg Documented by: Hydrocodone Bitart/Acetaminophen (Hydrocodone-Acetaminophen 5-325 Mg Tablet) 1 tab PO Q6H PRN PRN Reason: MODERATE PAIN Last Admin: 08/15/20 18:30 Dose: 1 tab Documented by: Albuterol/Ipratropium (Ipratropium-Albuterol 3 Ml Neb) 3 ml INHALATION Q6H.RESPIRATORY PRN PRN Reason: SHORTNESS OF BREATH Last Admin: 08/13/20 20:35 Dose: 3 ml Documented by: Atorvastatin Calcium (Atorvastatin 40 Mg Tablet) 80 mg PO BEDTIME KIMBERLY Last Admin: 08/15/20 21:16 Dose: 80 mg Documented by: Carvedilol (Carvedilol 3.125 Mg Tablet) 3.125 mg PO BID KIMBERLY Last Admin: 08/15/20 18:34 Dose: 3.125 mg Documented by: Furosemide (Furosemide 10 Mg/Ml Sdv 4ml) 40 mg IVP Q12H [facility]IMBER[facility] Last Admin: 08/15/20 21:16 Dose: 40 mg Documented by: Cefepime HCl 1,000 mg/ Sodium (Chloride) 50 mls @ 100 mls/hr IV Q24H [facility]; Protocol Last Admin: 08/15/20 06:00 Dose: 100 mls/hr Documented by: Dexmedetomidine HCl 400 mcg/ (Sodium Chloride) 104 mls @ 0 mls/hr IV .Q0M [facility]; Protocol Last Admin: 08/15/20 08:40 Dose: 0.1 mcg/kg/hr, 1.4 mls/hr Documented by: Linezolid (Zyvox Premix) 600 mg in 300 mls @ 300 mls/hr IV Q12H [facility] Last Admin: 08/15/20 19:53 Dose: 300 mls/hr Documented by: Lorazepam (Lorazepam 2 Mg/Ml Inj 1 Ml) 0.5 mg IVP Q4H PRN PRN Reason: ANXIETY Last Admin: 08/14/20 09:10 Dose: 0.5 mg Documented by: Morphine Sulfate (Morphine 4 Mg/Ml Sdv 1 Ml) 1 mg IVP Q2H PRN PRN Reason: SEVERE PAIN Last Admin: 08/15/20 15:13 Dose: 1 mg Documented by: Ondansetron HCl (Ondansetron 2 Mg/Ml Sdv 2 Ml) 4 mg IVP Q4H PRN PRN Reason: NAUSEA AND VOMITING Last Admin: 08/16/20 03:42 Dose: 4 mg Documented by: Pantoprazole Sodium (Pantoprazole Dr 40 Mg Tablet) 40 mg PO DAILY [facility] Last Admin: 08/15/20 19:53 Dose: 40 mg Documented by: Sodium Bicarbonate (Sodium Bicarbonate 650 Mg Tablet) 650 mg PO TID [facility] Last Admin: 08/15/20 21:16 Dose: 650 mg Documented by: Vitals/I&O/Wt Last Vital Signs Temp 98.2 F 08/16/20 04:00 Pulse 68 08/16/20 06:00 Resp 15 08/16/20 06:00 BP 137/69 08/16/20 06:00 Pulse Ox 92 08/16/20 06:00 08/15/20 08/16/20 08/16/20 22:59 06:59 14:59 Intake Total 30 / 330 Output Total 450 / 450 600 / 1050 Balance -420 / -120 -600 / -720 Physical Exam Narrative: EXAM NARRATIVE: GENERAL: Averagely built and averagely nourished in no acute distress HEENT: Extraocular movement intact. Pupils equal round reactive to light. No pallor or icterus. NECK: Mild JVD. No carotid bruit. CARDIOVASCULAR SYSTEM: S1-S2 regular. No S3 or S4 present. Grade 3/6 systolic murmur in RUSB with radiation to carotid RESPIRATORY SYSTEM: decreased breath sounds at bases. No wheezes, coarse r honchi+; No use of accessory muscles. ABDOMEN: Soft, nontender and nondistended. Normal bowel sounds present. EXTREMITIES: No cyanosis or clubbing. No edema. No signs of chronic venous insufficiency. 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 No focal neurological deficits. SKIN: Normal turgor and temperature. PSYCH: Normal insight and judgment. Urinary Catheter Management^: Mcfarland: Cath Placed During This Visit: yes Reason for Continuing Indwelling Catheter: Accurate Measurement of Urinary Output in Critically Ill Patients Urinary Catheter Date of Insertion: 08/09/20 Urinary Catheter Time of Insertion: 22:15 Data : 08/16/20 03:10 08/16/20 03:10 Micro: Microbiology 08/12/20 18:20 Mycobacterial Smear - Preliminary Body Fluids - Thoracentesis 08/12/20 18:20 Gram Stain - Final Pleural Fluid Anaerobic Culture - Preliminary Body Fluid Culture - Preliminary 08/15/20 10:00 Gram Stain - Final Pleural Fluid 08/10/20 03:15 Blood Culture - Final Blood NO GROWTH AFTER 5 DAYS 08/10/20 02:45 Blood Culture - Final Blood NO GROWTH AFTER 5 DAYS A&P Assessment and plan (1) Acute respiratory failure with hypoxia and hypercapnia: The patient is currently extubated. Patient seems to have recurrent pleural edema. Status: Acute (2) Recent non-ST elevation myocardial infarction: -continue coreg and lipitor. -Consider cardiac catheterization once she is more stable. However, given marked anemia requiring several units of blood transfusion in last admission; it seems unlikely at present. -Plan for stress test once feasible to determine extent of ischemia. Status: Acute (3) Acute exacerbation of CHF (congestive heart failure): -Seems to have intermittent pulmonary edema. -Recurrent edema in setting of ischemia? -currently on p.o. lasix 40 twice daily. May have to uptitrate based on urine output. Status: Acute Qualifiers: Heart failure type: diastolic Qualified Code(s): I50.33 - Acute on chronic diastolic (congestive) heart failure (4) Acute kidney injury superimposed on chronic kidney disease: BUN/creatinine still high but trending down. Status: Acute (5) Peripheral arterial disease: Will need peripheral angiogram as well once feasible. Status: Acute Additional A&P Information Bilateral pleural effusion Moderate aortic stenosis Anemia Bilateral feet ulcers Attestations Medical Necessity Statement*: Needs hospital stay for CHF and worsening renal function. Coding Level of Care Code Acute Dairy Helper for Janice Long Diagnoses Acute respiratory failure with hypoxia and hypercapnia J96.01; J96.02 Recent non-ST elevation myocardial infarction Acute exacerbation of CHF (congestive heart failure) I50.33 Heart failure type: diastolic Acute kidney injury superimposed on chronic kidney disease N17.9; N18.9 Peripheral arterial disease I73.9
--- NOTE | 2020-08-16 08:37 | PM.PN ---
Subjective Subjective: Interval history: weak, sob, dec edema. Medications: Reviewed: Yes Medication Review Details: Current Medications Acetaminophen (Acetaminophen 325 Mg Tablet) 650 mg PO Q6H PRN PRN Reason: FEVER Last Admin: 08/11/20 15:34 Dose: 650 mg Documented by: Hydrocodone Bitart/Acetaminophen (Hydrocodone-Acetaminophen 5-325 Mg Tablet) 1 tab PO Q6H PRN PRN Reason: MODERATE PAIN Last Admin: 08/15/20 18:30 Dose: 1 tab Documented by: Albuterol/Ipratropium (Ipratropium-Albuterol 3 Ml Neb) 3 ml INHALATION Q6H.RESPIRATORY PRN PRN Reason: SHORTNESS OF BREATH Last Admin: 08/13/20 20:35 Dose: 3 ml Documented by: Atorvastatin Calcium (Atorvastatin 40 Mg Tablet) 80 mg PO BEDTIME [facility] Last Admin: 08/15/20 21:16 Dose: 80 mg Documented by: Carvedilol (Carvedilol 3.125 Mg Tablet) 3.125 mg PO BID [facility] Last Admin: 08/15/20 18:34 Dose: 3.125 mg Documented by: Furosemide (Furosemide 10 Mg/Ml Sdv 4ml) 40 mg IVP Q12H [facility] Last Admin: 08/15/20 21:16 Dose: 40 mg Documented by: Cefepime HCl 1,000 mg/ Sodium (Chloride) 50 mls @ 100 mls/hr IV Q24H [facility]; Protocol Last Admin: 08/15/20 06:00 Dose: 100 mls/hr Documented by: Dexmedetomidine HCl 400 mcg/ (Sodium Chloride) 104 mls @ 0 mls/hr IV .Q0M [facility]; Protocol Last Admin: 08/15/20 08:40 Dose: 0.1 mcg/kg/hr, 1.4 mls/hr Documented by: Linezolid (Zyvox Premix) 600 mg in 300 mls @ 300 mls/hr IV Q12H [facility] Last Admin: 08/15/20 19:53 Dose: 300 mls/hr Documented by: Lorazepam (Lorazepam 2 Mg/Ml Inj 1 Ml) 0.5 mg IVP Q4H PRN PRN Reason: ANXIETY Last Admin: 08/14/20 09:10 Dose: 0.5 mg Documented by: Morphine Sulfate (Morphine 4 Mg/Ml Sdv 1 Ml) 1 mg IVP Q2H PRN PRN Reason: SEVERE PAIN Last Admin: 08/15/20 15:13 Dose: 1 mg Documented by: Ondansetron HCl (Ondansetron 2 Mg/Ml Sdv 2 Ml) 4 mg IVP Q4H PRN PRN Reason: NAUSEA AND VOMITING Last Admin: 08/16/20 03:42 Dose: 4 mg Documented by: Pantoprazole Sodium (Pantoprazole Dr 40 Mg Tablet) 40 mg PO DAILY REPLACED BY [facility] Last Admin: 08/15/20 19:53 Dose: 40 mg Documented by: Sodium Bicarbonate (Sodium Bicarbonate 650 Mg Tablet) 650 mg PO TID REPLACED BY [facility] Last Admin: 08/15/20 21:16 Dose: 650 mg Documented by: Vitals/I&O/Wt Last Vital Signs Temp 98.2 F 08/16/20 04:00 Pulse 68 08/16/20 06:00 Resp 15 08/16/20 06:00 BP 137/69 08/16/20 06:00 Pulse Ox 92 08/16/20 06:00 08/15/20 08/16/20 08/16/20 22:59 06:59 14:59 Intake Total 30 / 330 Output Total 450 / 450 600 / 1050 Balance -420 / -120 -600 / -720 Physical Exam Narrative: EXAM NARRATIVE: extubated. interactive, SOB heent- nca/t, eomi neck supple lungs per RN- good air movement, dull bases, wheezes and crackles b/l heart - reg, +HSM abd soft, nt, +BS ext 1+ b/l leg edema- improving neuro- a,a, o x 3 Urinary Catheter Management^: Mcfarland: Cath Placed During This Visit: yes Reason for Continuing Indwelling Catheter: Accurate Measurement of Urinary Output in Critically Ill Patients Urinary Catheter Date of Insertion: 08/09/20 Urinary Catheter Time of Insertion: 22:15 Data : 08/16/20 03:10 08/16/20 03:10 Micro: Microbiology 08/12/20 18:20 Mycobacterial Smear - Preliminary Body Fluids - Thoracentesis 08/12/20 18:20 Gram Stain - Final Pleural Fluid Anaerobic Culture - Preliminary Body Fluid Culture - Preliminary 08/15/20 10:00 Gram Stain - Final Pleural Fluid 08/10/20 03:15 Blood Culture - Final Blood NO GROWTH AFTER 5 DAYS 08/10/20 02:45 Blood Culture - Final Blood NO GROWTH AFTER 5 DAYS A&P Additional A&P Information 1. 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 Congestive heart failure -diuresis per cardiology/ medicine -recent NSTEMI -if needs cardiac cath- currently high risk for SHAILA, and may need HD post cath 3. Pneumonia -linezolid and cefepime per pulm -s/p thoracentesis 600 ml removed 4. Metabolic acidosis, improved -dec sodium bicarb 5. Anemia, Hb improved 6. PUD on PPI- s/p prbc tx Recommend: maximize CHF management abx per pulm -dec na bicarb monitor chemistries Attestations Medical Necessity Statement*: renita, chf, pna Time Spent in Patient Care: 16 - 35 minutes Coding Level of Care Code Acute Log Deckman for Janice Long
[2020-08-16] MEDS: sodium bicarbonate 650 mg Tablet PO (08:38)
[2020-08-16] MEDS: carvedilol 3.125 mg Tablet PO ×2 (08:38→17:28)
[2020-08-16] MEDS: pantoprazole DR 40 mg Tablet PO (08:38)
[2020-08-16] MEDS: HYDROcodone-acetaminophen 5-325 mg Tablet 1 TAB PO ×2 (08:43→15:24)
[2020-08-16] MEDS: magnesium oxide 400 mg tablet PO (11:53)
[2020-08-16] MEDS: FUROsemide 40 mg Tablet PO ×2 (11:53→17:28)
[2020-08-16] MEDS: docusate sodium 100 mg Capsule PO (11:53)
--- NOTE | 2020-08-16 12:37 | PM.PN ---
Subjective Subjective: Interval history: 75 yo F with history of coronary artery disease, anemia, Peripheral artery disease, aortic stenosis who presented to the ER with sob, the patient was initially managed with BiPAP. She was found to have bilateral pleural effusions. 08/15/20 she underwent thoracentesis. This seems to make her less sedated. She reports overall she is feeling better. The patient was also evaluated by nephrology. Recommended oral bicarb. For metabolic acidosis. The patient has also been evaluated by cardiology. Recommend possible cardiac catheterization and peripheral angiogram when she is more stable. breathing better abx dc'd this am she reports bilateral heel pain Medications: Reviewed: Yes Medication Review Details: Current Medications Acetaminophen (Acetaminophen 325 Mg Tablet) 650 mg PO Q6H PRN PRN Reason: FEVER Last Admin: 08/11/20 15:34 Dose: 650 mg Documented by: Hydrocodone Bitart/Acetaminophen (Hydrocodone-Acetaminophen 5-325 Mg Tablet) 1 tab PO Q6H PRN PRN Reason: MODERATE PAIN Last Admin: 08/15/20 18:30 Dose: 1 tab Documented by: Albuterol/Ipratropium (Ipratropium-Albuterol 3 Ml Neb) 3 ml INHALATION Q6H.RESPIRATORY PRN PRN Reason: SHORTNESS OF BREATH Last Admin: 08/13/20 20:35 Dose: 3 ml Documented by: Atorvastatin Calcium (Atorvastatin 40 Mg Tablet) 80 mg PO BEDTIME [facility] Last Admin: 08/15/20 21:16 Dose: 80 mg Documented by: Carvedilol (Carvedilol 3.125 Mg Tablet) 3.125 mg PO BID [facility] Last Admin: 08/15/20 18:34 Dose: 3.125 mg Documented by: Furosemide (Furosemide 10 Mg/Ml Sdv 4ml) 40 mg IVP Q12H [facility] Last Admin: 08/15/20 21:16 Dose: 40 mg Documented by: Cefepime HCl 1,000 mg/ Sodium (Chloride) 50 mls @ 100 mls/hr IV Q24H [facility]; Protocol Last Admin: 08/15/20 06:00 Dose: 100 mls/hr Documented by: Dexmedetomidine HCl 400 mcg/ (Sodium Chloride) 104 mls @ 0 mls/hr IV .Q0M [facility]; Protocol Last Admin: 08/15/20 08:40 Dose: 0.1 mcg/kg/hr, 1.4 mls/hr Documented by: Linezolid (Zyvox Premix) 600 mg in 300 mls @ 300 mls/hr IV Q12H [facility] Last Admin: 08/15/20 19:53 Dose: 300 mls/hr Documented by: Lorazepam (Lorazepam 2 Mg/Ml Inj 1 Ml) 0.5 mg IVP Q4H PRN PRN Reason: ANXIETY Last Admin: 08/14/20 09:10 Dose: 0.5 mg Documented by: Morphine Sulfate (Morphine 4 Mg/Ml Sdv 1 Ml) 1 mg IVP Q2H PRN PRN Reason: SEVERE PAIN Last Admin: 08/15/20 15:13 Dose: 1 mg Documented by: Ondansetron HCl (Ondansetron 2 Mg/Ml Sdv 2 Ml) 4 mg IVP Q4H PRN PRN Reason: NAUSEA AND VOMITING Last Admin: 08/16/20 03:42 Dose: 4 mg Documented by: Pantoprazole Sodium (Pantoprazole Dr 40 Mg Tablet) 40 mg PO DAILY [facility] Last Admin: 08/15/20 19:53 Dose: 40 mg Documented by: Sodium Bicarbonate (Sodium Bicarbonate 650 Mg Tablet) 650 mg PO TID [facility] Last Admin: 08/15/20 21:16 Dose: 650 mg Documented by: Vitals/I&O/Wt Last Vital Signs Temp 98.2 F 08/16/20 04:00 Pulse 60 08/16/20 11:00 Resp 9 L 08/16/20 11:00 BP 133/71 08/16/20 10:00 Pulse Ox 97 08/16/20 11:00 08/15/20 08/16/20 08/16/20 22:59 06:59 14:59 Intake Total 30 / 330 120 / 120 Output Total 450 / 450 600 / 1050 Balance -420 / -120 -600 / -720 120 / 120 Physical Exam Const: COMMON NORMALS: patient oriented x3 Resp: COMMON NORMALS: normal respiratory effort and No use of accessory muscles OTHER: Cardio: COMMON NORMALS: regular rate and regular rhythm RATE: regular rate RHYTHM: regular rhythm Extremity: OTHER: edema Neuro: COMMON NORMALS: patient oriented x3 and moves all extremities Urinary Catheter Management^: Mcfarland: Cath Placed During This Visit: yes Reason for Continuing Indwelling Catheter: Accurate Measurement of Urinary Output in Critically Ill Patients Urinary Catheter Date of Insertion: 08/09/20 Urinary Catheter Time of Insertion: 22:15 Data : 08/16/20 03:10 08/16/20 03:10 Micro: Microbiology 08/12/20 18:20 Gram Stain - Final Pleural Fluid Anaerobic Culture - Preliminary Body Fluid Culture - Preliminary 08/15/20 10:00 Gram Stain - Final Pleural Fluid Anaerobic Culture - Preliminary 08/12/20 18:20 Mycobacterial Smear - Preliminary Body Fluids - Thoracentesis A&P Assessment and plan (1) GERARD (acute kidney injury): Status: Acute (2) Acute exacerbation of CHF (congestive heart failure): Status: Acute Qualifiers: Heart failure type: diastolic Qualified Code(s): I50.33 - Acute on chronic diastolic (congestive) heart failure (3) Hospital-acquired pneumonia: Status: Acute (4) Recent non-ST elevation myocardial infarction: Status: Acute (5) Peripheral arterial disease: Status: Acute (6) Bilateral pleural effusion: Status: Acute Additional A&P Information Respiratory failure -likely multifactorial including CHF exacerbation -contine IV lasix -taper O2, currently on HF -duo nebs HCAP -dc abx PUD -on PPI CAD -on lipitor, coreg, metabolic acidosis -on PO bicarb GERARD -appreciate renal recs -on NaHCO3 tid Anxeity -ativan prn., precedex bilateral heel ulcers -protective boots -PT consult PVD -possible angiogram pending clinical course Attestations Medical Necessity Statement*: Elizabeth Lima's hospital stay will require greater than 2 midnights for resp failure Coding Level of Care Code Acute Ui Ux Web Developer for Chg Fwd Diagnoses GERARD (acute kidney injury) N17.9 Acute exacerbation of CHF (congestive heart failure) I50.33 Heart failure type: diastolic Hospital-acquired pneumonia J18.9; Y95 Recent non-ST elevation myocardial infarction Peripheral arterial disease I73.9 Bilateral pleural effusion J90
--- NOTE | 2020-08-16 14:26 | PC.SLP ---
Attempted to see patient twice today, however, both times the patient was sleeping and reporting she was nauseated. Will continue to monitor and advance diet as patient can tolerate.
--- NOTE | 2020-08-16 14:53 | P.PN_ITS ---
Subjective Subjective: Interval history: No more fever spikes I/O/N - 330/1050/-720 Currently awake, alert and still complaining of bilateral heel pain; saturating 94% on 4 L nasal cannula Recommended to do Lasix 40 mg Change oral antibiotics to p.o. Plan is to sit her out of bed to chair Medications: Reviewed: Yes Medication Review Details: Current Medications Acetaminophen (Acetaminophen 325 Mg Tablet) 650 mg PO Q6H PRN PRN Reason: FEVER Last Admin: 08/11/20 15:34 Dose: 650 mg Documented by: Hydrocodone Bitart/Acetaminophen (Hydrocodone-Acetaminophen 5-325 Mg Tablet) 1 tab PO Q6H PRN PRN Reason: MODERATE PAIN Last Admin: 08/15/20 18:30 Dose: 1 tab Documented by: Albuterol/Ipratropium (Ipratropium-Albuterol 3 Ml Neb) 3 ml INHALATION Q6H.RESPIRATORY PRN PRN Reason: SHORTNESS OF BREATH Last Admin: 08/13/20 20:35 Dose: 3 ml Documented by: Atorvastatin Calcium (Atorvastatin 40 Mg Tablet) 80 mg PO BEDTIME [facility] Last Admin: 08/15/20 21:16 Dose: 80 mg Documented by: Carvedilol (Carvedilol 3.125 Mg Tablet) 3.125 mg PO BID [facility] Last Admin: 08/15/20 18:34 Dose: 3.125 mg Documented by: Furosemide (Furosemide 10 Mg/Ml Sdv 4ml) 40 mg IVP Q12H [facility] Last Admin: 08/15/20 21:16 Dose: 40 mg Documented by: Cefepime HCl 1,000 mg/ Sodium (Chloride) 50 mls @ 100 mls/hr IV Q24H [facility]; Protocol Last Admin: 08/15/20 06:00 Dose: 100 mls/hr Documented by: Dexmedetomidine HCl 400 mcg/ (Sodium Chloride) 104 mls @ 0 mls/hr IV .Q0M [facility]; Protocol Last Admin: 08/15/20 08:40 Dose: 0.1 mcg/kg/hr, 1.4 mls/hr Documented by: Linezolid (Zyvox Premix) 600 mg in 300 mls @ 300 mls/hr IV Q12H [facility] Last Admin: 08/15/20 19:53 Dose: 300 mls/hr Documented by: Lorazepam (Lorazepam 2 Mg/Ml Inj 1 Ml) 0.5 mg IVP Q4H PRN PRN Reason: ANXIETY Last Admin: 08/14/20 09:10 Dose: 0.5 mg Documented by: Morphine Sulfate (Morphine 4 Mg/Ml Sdv 1 Ml) 1 mg IVP Q2H PRN PRN Reason: SEVERE PAIN Last Admin: 08/15/20 15:13 Dose: 1 mg Documented by: Ondansetron HCl (Ondansetron 2 Mg/Ml Sdv 2 Ml) 4 mg IVP Q4H PRN PRN Reason: NAUSEA AND VOMITING Last Admin: 08/16/20 03:42 Dose: 4 mg Documented by: Pantoprazole Sodium (Pantoprazole Dr 40 Mg Tablet) 40 mg PO DAILY [facility] Last Admin: 08/15/20 19:53 Dose: 40 mg Documented by: Sodium Bicarbonate (Sodium Bicarbonate 650 Mg Tablet) 650 mg PO TID [facility] Last Admin: 08/15/20 21:16 Dose: 650 mg Documented by: Vitals/I&O/Wt Last Vital Signs Temp 98.6 F 08/16/20 14:00 Pulse 61 08/16/20 14:00 Resp 22 H 08/16/20 14:00 BP 142/65 08/16/20 14:00 Pulse Ox 97 08/16/20 14:00 08/15/20 08/16/20 08/16/20 22:59 06:59 14:59 Intake Total 30 / 330 240 / 240 Output Total 450 / 450 600 / 1050 Balance -420 / -120 -600 / -720 240 / 240 Physical Exam Narrative: EXAM NARRATIVE: PHYSICAL EXAM: General: Sitting in bed not in acute respiratory distress awake and following commands HEENT:NCAT, PERRLA, EOMI Neck: Supple Lungs: Reduced breath sounds bilateral lower lungs; left more than right Heart: s1/s2, RRR Abd: soft, NT, ND, BS + Normoactive Extremities: No edema; bilateral heel decubiti covered with pressure dressings PROPERTY ASSESSMENT MONITOR: Alert awake oriented no gross FND SKIN: no rash Urinary Catheter Management^: Mcfarland: Cath Placed During This Visit: yes Reason for Continuing Indwelling Catheter: Accurate Measurement of Urinary Output in Critically Ill Patients Urinary Catheter Date of Insertion: 08/09/20 Urinary Catheter Time of Insertion: 22:15 Data : 08/16/20 03:10 08/16/20 03:10 Micro: Microbiology 08/12/20 18:20 Gram Stain - Final Pleural Fluid Anaerobic Culture - Preliminary Body Fluid Culture - Final 08/15/20 10:00 Gram Stain - Final Pleural Fluid Anaerobic Culture - Preliminary Body Fluid Culture - Preliminary 08/12/20 18:20 Mycobacterial Smear - Preliminary Body Fluids - Thoracentesis A&P Assessment and plan (1) Acute exacerbation of CHF (congestive heart failure): Status: Acute Qualifiers: Heart failure type: diastolic Qualified Code(s): I50.33 - Acute on chronic diastolic (congestive) heart failure (2) Acute kidney injury superimposed on chronic kidney disease: Status: Acute (3) Hospital-acquired pneumonia: Status: Acute (4) Acute respiratory failure with hypoxia and hypercapnia: Status: Acute (5) Recent non-ST elevation myocardial infarction: Status: Acute (6) Bilateral pleural effusion: Status: Acute # Acute respiratory failure likely secondary to CHF exacerbation #Worsening renal failure in patient with CKD stage III -secondary to cardi orenal #Bilateral pleural effusions due to cardiac and renal failure- #S/p thoracentesis right pleural effusion drained 1100 cc straw-colored transudative fluid on 08/12/2020-seems like recurring on chest x-ray today morning -S/p left side thoracentesis 08/15/20 drained 600 cc straw-colored fluid resulted better ventilation-transudative in nature and cytology pending # b/l heel pain - pressure stage 1 decubiti - likely due to PAD -Patient mentation much better and she is awake.. -Anxious and uncooperative at times -Recommended Precedex drip for anxiety -No more fever spikes - I/O/N - 330/1050/-720 - Currently awake, alert and still complaining of bilateral heel pain; saturating 94% on 4 L nasal cannula - Change oral antibiotics to p.o. - Plan is to sit her out of bed to chair -Strictly monitor I&O -Chest x-ray No residual left pleural effusion visible after thoracentesis. No evidence of pneumothorax. Improved aeration right lung base. -Patient on Coreg 3.125 p.o. twice daily and recommended Lasix 40 mg daily as well -Patient receiving morphine 1 mg every 6 as needed for her heel pain but the pain is not well controlled so added [place] 5/325 every 6 hours as needed -Can DC cefepime and Linezolid; Procalcitonin 0.65 likely due to renal insufficiency -If patient continues to spike fevers/leukocytosis-look for other infectious sources like heel decubiti -Both renal and cardiology are following the case - Transfer to floor tomorrow Recommendations conveyed to hospitalist covering the case Attestations Medical Necessity Statement*: # Acute respiratory failure likely secondary to CHF exacerbation with Worsening renal failure in patient with CKD stage III - secondary to cardiorenal c/b Bilateral pleural effusions due to cardiac and renal failure Time Spent in Patient Care: Greater than 35 minutes (>than 50% of time spent in counselling and/or direct pt care on unit) . Critical Care Time: Critical Care Time (min): 45 Coding Level of Care Code Acute Stone Rubber for Janice Long Diagnoses Acute exacerbation of CHF (congestive heart failure) I50.33 Heart failure type: diastolic Acute kidney injury superimposed on chronic kidney disease N17.9; N18.9 Hospital-acquired pneumonia J18.9; Y95 Acute respiratory failure with hypoxia and hypercapnia J96.01; J96.02 Recent non-ST elevation myocardial infarction Bilateral pleural effusion J90
[2020-08-16] MEDS: sodium bicarbonate 650 mg Tablet 325 MG PO ×2 (15:24→20:07)
[2020-08-16] MEDS: ondansetron 4 MG Tablet PO (15:24)
[2020-08-16] MEDS: metOLazone 5 MG Tablet PO (15:24)
[2020-08-16] MEDS: atorvastatin 40 mg Tablet 80 MG PO (20:06)
--- NOTE | 2020-08-16 21:03 | PC.NURSE ---
Patient resting in room with eyes closed, on NC at 4L. No s/s of distress, patient did say her bottom was sore, patient was turned and placed pillow under her for comfort. Call light within reach. Continue care.
[2020-08-16 21:13] LABS: ANCA Interp Negative (Negative)
[2020-08-17] VITALS (14 sets, daily range): BP systolic 145–174; BP diastolic 57–92; PULSE 59–72; RESP 11–21; TEMP 36.6; O2SAT 93–98
[2020-08-17] MEDS: HYDROcodone-acetaminophen 5-325 mg Tablet 1 TAB PO ×3 (03:37→15:39)
--- NOTE | 2020-08-17 04:30 | PC.NURSE ---
Patient resting in room with eyes closed at this time. Patient awake periodically throughout overnight associate and did voice complaints of pain. PRN pain medication given per MAR and orders. Patient did not have IV access at beginning of shift and new IV line started in left forearm. Patient tolerated well. Patient does have intermittent episodes of confusion, but patient is alert and orientated when asked where she is at. Call light within reach. Continue care.
[2020-08-17] MEDS: FUROsemide 40 mg Tablet PO ×2 (05:00→19:39)
[2020-08-17 05:24] LABS: Alanine Aminotransferase 15 U/L (0-33); Albumin Level 2.7 g/dL (3.5-5.2); Alkaline Phosphatase 67 IU/L (35-105); Anion Gap 16.5 (5-19); Aspartate Amino Transferase 27 U/L (0-32); Blood Urea Nitrogen 43 mg/dL (8-23); Calcium 8.6 mg/dL (8.5-10.5); Carbon Dioxide 22 mmol/L (22-29); Chloride 100 mmol/L (98-107); Globulin 3.7 g/dL (1.3-4.6); Glucose 112 mg/dL (65-115); Magnesium 1.9 mg/dL (1.7-2.3); Osmolality Calculated 292 mOsm/kg (285-295); Phosphorus 3.6 mg/dL (2.5-4.5); Potassium 3.5 mmol/L (3.5-5.1); Sodium 135 mmol/L (136-145); Total Bilirubin 0.4 mg/dL (0.15-1.2); Total Protein 6.4 g/dL (6.6-8.7)
--- NOTE | 2020-08-17 06:23 | PC.NURSE ---
Uneventful shift. Continue care.
--- NOTE | 2020-08-17 08:56 | PM.PN ---
Subjective Subjective: Interval history: feels better. still edema and sob on nc 02- she wants to go home. Medications: Reviewed: Yes Medication Review Details: Current Medications Acetaminophen (Acetaminophen 325 Mg Tablet) 650 mg PO Q6H PRN PRN Reason: FEVER Last Admin: 08/11/20 15:34 Dose: 650 mg Documented by: Hydrocodone Bitart/Acetaminophen (Hydrocodone-Acetaminophen 5-325 Mg Tablet) 1 tab PO Q6H PRN PRN Reason: MODERATE PAIN Last Admin: 08/17/20 03:37 Dose: 1 tab Documented by: Albuterol/Ipratropium (Ipratropium-Albuterol 3 Ml Neb) 3 ml INHALATION Q6H.RESPIRATORY PRN PRN Reason: SHORTNESS OF BREATH Last Admin: 08/13/20 20:35 Dose: 3 ml Documented by: Atorvastatin Calcium (Atorvastatin 40 Mg Tablet) 80 mg PO BEDTIME [facility] Last Admin: 08/16/20 20:06 Dose: 80 mg Documented by: Carvedilol (Carvedilol 3.125 Mg Tablet) 3.125 mg PO BID [facility] Last Admin: 08/16/20 17:28 Dose: 3.125 mg Documented by: Docusate Sodium (Docusate Sodium 100 Mg Capsule) 100 mg PO DAILY [facility] Last Admin: 08/16/20 11:53 Dose: 100 mg Documented by: Furosemide (Furosemide 40 Mg Tablet) 40 mg PO BID@,18 [facility] Last Admin: 08/17/20 05:00 Dose: 40 mg Documented by: Lorazepam (Lorazepam 2 Mg/Ml Inj 1 Ml) 0.5 mg PO Q4H PRN PRN Reason: ANXIETY Metolazone (Metolazone 5 Mg Tablet) 5 mg PO DAILY [facility] Last Admin: 08/16/20 15:24 Dose: 5 mg Documented by: Morphine Sulfate (Morphine 4 Mg/Ml Sdv 1 Ml) 1 mg IVP Q2H PRN PRN Reason: SEVERE PAIN Last Admin: 08/15/20 15:13 Dose: 1 mg Documented by: Ondansetron HCl (Ondansetron 4 Mg Tablet) 4 mg PO Q6H PRN PRN Reason: NAUSEA AND VOMITING Last Admin: 08/16/20 15:24 Dose: 4 mg Documented by: Pantoprazole Sodium (Pantoprazole Dr 40 Mg Tablet) 40 mg PO DAILY [facility] Last Admin: 08/16/20 08:38 Dose: 40 mg Documented by: Sodium Bicarbonate (Sodium Bicarbonate 650 Mg Tablet) 325 mg PO TID [facility] Last Admin: 08/16/20 20:07 Dose: 325 mg Documented by: Vitals/I&O/Wt Last Vital Signs Temp 98 F 08/17/20 04:00 Pulse 59 L 08/17/20 06:00 Resp 13 08/17/20 06:00 BP 161/70 08/17/20 06:00 Pulse Ox 96 08/17/20 06:00 08/16/20 08/17/20 08/17/20 22:59 06:59 14:59 Intake Total 360 / 600 60 / 660 Output Total 400 / 400 750 / 1150 Balance -40 / 200 -690 / -490 Weight last 48 hrs Weight 60.5 kg Physical Exam Narrative: EXAM NARRATIVE: comfortable inm bed, nc 02. interactive, less SOB heent- nca/t, eomi neck supple lungs per RN- good air movement, dull bases, wheezes and crackles b/l heart - reg, +HSM abd soft, nt, +BS ext 1+ b/l leg edema- improving neuro- a,a, o x 3 Urinary Catheter Management^: Mcfarland: Cath Placed During This Visit: yes Reason for Continuing Indwelling Catheter: Accurate Measurement of Urinary Output in Critically Ill Patients Urinary Catheter Date of Insertion: 08/09/20 Urinary Catheter Time of Insertion: 22:15 Data : 08/16/20 03:10 08/17/20 03:29 Micro: Microbiology 08/12/20 18:20 Gram Stain - Final Pleural Fluid Anaerobic Culture - Preliminary Body Fluid Culture - Final 08/15/20 10:00 Gram Stain - Final Pleural Fluid Anaerobic Culture - Preliminary Body Fluid Culture - Preliminary A&P Additional A&P Information 1. 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 Congestive heart failure -diuresis per cardiology/ medicine -recent NSTEMI -if needs cardiac cath- currently high risk for SHAILA, and may need HD post cath 3. Pneumonia -per pulm d/c linezolid and cefepime -s/p thoracentesis 600 ml removed 4. Metabolic acidosis, improved -low dose sodium bicarb 5. Anemia, Hb improved 6. hyponatremia- monitor on lasix and metolazone 7. PUD on PPI- s/p prbc tx Recommend: maximize CHF management monitor chem7, mag, phos Attestations Medical Necessity Statement*: per medicine and cardiology Time Spent in Patient Care: 16 - 35 minutes Coding Level of Care Code Acute Hosiery Mender for Janice Long
--- NOTE | 2020-08-17 09:12 | PC.CHAP ---
Pastoral Care Encounter/Spiritual Assessment Type of Contact [] Declined rn anesthesiology visit [] Patient/Family/Request visit [] Outpatient visit [] Follow-up visit [] Physician referral [] Code/Alert [] Routine visit [] Staff referral [] Actively dying [] Patient sleeping [] Family support [] [] Out of room [] Palliative care [] [] Receiving care in room [] Pre-surgical visit [] Trauma [] Long length of stay [xICU visit [] Other: Relational/Emotional Strength [] Patient feels connected with others/family/visitors/staff [] Distress [] Loneliness/isolation [] Abandonment Spirituality of Patient [] Person of Niyah [] Attends [employer] of their Niyah [] Believes in Prayer [] Reads Bible or Sikhism materials [] There are Spiritual issues to be addressed Meter Repairer Interventions [x] Prayer [] Active listening [] Non-anxious presence [] Spiritual/emotional support [] Crisis/trauma care [] Spiritual counseling [] Bereavement support [] Provided bereavement packet [] Provided Bible/devotional materials [] Provided toy/stuffed animal, coloring book to patient or family member [] Provided Communion [] Anointing/[place] [] Salvation [x] Completed spiritual assessment [] Other: Impact on Illness or Injury [] Angry [] Fearful [] Anxious [] Often cries [] Exhaustion [] Unable to work [] Unable to attend denominational [] Unable to walk/stand [] Unable to read [] Unable to drive [] Unable to eat/drink [] Unable to sleep [] Unable to be with family [] Patient intubated [] Other: Summary Time spent with patient
[2020-08-17] MEDS: pantoprazole DR 40 mg Tablet PO (10:13)
[2020-08-17] MEDS: docusate sodium 100 mg Capsule PO (10:13)
[2020-08-17] MEDS: carvedilol 3.125 mg Tablet PO ×2 (10:13→19:39)
[2020-08-17] MEDS: metOLazone 5 MG Tablet PO (10:15)
[2020-08-17] MEDS: sodium bicarbonate 650 mg Tablet 325 MG PO ×3 (10:18→21:07)
[2020-08-17] MEDS: ondansetron 4 MG Tablet PO ×2 (10:31→15:38)
[2020-08-17] MEDS: morphine 4 mg/mL SDV 1 mL 1 MG IVP ×2 (12:06→19:39)
--- NOTE | 2020-08-17 13:00 | PC.SOCIAL ---
IMM Update Pg. 2 of IMM updated and patient provided a copy.
--- NOTE | 2020-08-17 15:41 | PC.NURSE ---
RES RED QUIETLY, VISITING WITH SON.
--- NOTE | 2020-08-17 17:03 | PM.PN ---
Subjective Subjective: Interval history: Patient is feeling okay. She has significant improvement of the bilateral pleural effusion. Her blood pressure seems to be staying high in the 160s and 170s. Telemetry shows sinus rhythm. No significant arrhythmias were noted. Urine output seems to be improving with IV diuretics. Medications: Reviewed: Yes Medication Review Details: Current Medications Acetaminophen (Acetaminophen 325 Mg Tablet) 650 mg PO Q6H PRN PRN Reason: FEVER Last Admin: 08/11/20 15:34 Dose: 650 mg Documented by: Hydrocodone Bitart/Acetaminophen (Hydrocodone-Acetaminophen 5-325 Mg Tablet) 1 tab PO Q6H PRN PRN Reason: MODERATE PAIN Last Admin: 08/17/20 15:39 Dose: 1 tab Documented by: Albuterol/Ipratropium (Ipratropium-Albuterol 3 Ml Neb) 3 ml INHALATION Q6H.RESPIRATORY PRN PRN Reason: SHORTNESS OF BREATH Last Admin: 08/13/20 20:35 Dose: 3 ml Documented by: Amlodipine Besylate (Amlodipine 10 Mg Tablet) 10 mg PO DAILY [facility] Atorvastatin Calcium (Atorvastatin 40 Mg Tablet) 80 mg PO BEDTIME [facility] Last Admin: 08/16/20 20:06 Dose: 80 mg Documented by: Carvedilol (Carvedilol 3.125 Mg Tablet) 3.125 mg PO BID [facility] Last Admin: 08/17/20 10:13 Dose: 3.125 mg Documented by: Docusate Sodium (Docusate Sodium 100 Mg Capsule) 100 mg PO DAILY [facility] Last Admin: 08/17/20 10:13 Dose: 100 mg Documented by: Furosemide (Furosemide 40 Mg Tablet) 40 mg PO BID@06,18 [facility] Last Admin: 08/17/20 05:00 Dose: 40 mg Documented by: Lorazepam (Lorazepam 2 Mg/Ml Inj 1 Ml) 0.5 mg PO Q4H PRN PRN Reason: ANXIETY Metolazone (Metolazone 5 Mg Tablet) 5 mg PO DAILY [facility] Last Admin: 08/17/20 10:15 Dose: 5 mg Documented by: Morphine Sulfate (Morphine 4 Mg/Ml Sdv 1 Ml) 1 mg IVP Q2H PRN PRN Reason: SEVERE PAIN Last Admin: 08/17/20 12:06 Dose: 1 mg Documented by: Ondansetron HCl (Ondansetron 4 Mg Tablet) 4 mg PO Q6H PRN PRN Reason: NAUSEA AND VOMITING Last Admin: 08/17/20 15:38 Dose: 4 mg Documented by: Pantoprazole Sodium (Pantoprazole Dr 40 Mg Tablet) 40 mg PO DAILY [facility] Last Admin: 08/17/20 10:13 Dose: 40 mg Documented by: Sodium Bicarbonate (Sodium Bicarbonate 650 Mg Tablet) 325 mg PO TID [facility] Last Admin: 08/17/20 15:25 Dose: 325 mg Documented by: Vitals/I&O/Wt Last Vital Signs Temp 98 F 08/17/20 04:00 Pulse 63 08/17/20 16:00 Resp 19 H 08/17/20 16:00 BP 174/78 08/17/20 16:00 Pulse Ox 95 08/17/20 16:00 08/17/20 08/17/20 08/17/20 06:59 14:59 22:59 Intake Total 60 / 660 480 / 480 Output Total 750 / 1150 1150 / 1150 Balance -690 / -490 -670 / -670 Weight last 48 hrs Weight 133 lb 6.075 oz Physical Exam Narrative: EXAM NARRATIVE: GENERAL: Patient is alert and oriented x3. Somewhat drowsy from pain medications HEENT: No significant pallor, icterus or lymphadenopathy.Oral cavity: There are no mucous membrane lesions. NECK: Trachea appears to be central. No masses noted. No JVD or thyromegaly appreciated. RESPIRATORY: Chest is symmetrical. No intercostals muscle retraction or any accessory muscle activation. There is no chest wall tenderness. Breath sounds are heard bilaterally. Breath sounds are diminished at the bases BREASTS: Deferred. HEART: The heart sounds are normal. No S3 or S4. Short systolic murmur on the left sternal border.. No pericardial rub ABDOMEN: No vessel pulsations or distention. No tenderness. No organomegaly appreciated. Bowel sounds are normally heard. : Deferred. RECTAL: Deferred. LYMPHATIC: No lymphadenopathy noted in the neck or groin. EXTREMITIES: Trace to 1+ edema. No cyanosis. Nonhealing ulcers on both heel. Black eschar present MUSCULOSKELETAL: No acute joint deformities or swelling SKIN: There are no significant rashes or ecchymosis. Ulcers as mentioned above NEUROPSYCHIATRIC: No focal motor deficits Urinary Catheter Management^: Mcfarland: Cath Placed During This Visit: yes Reason for Continuing Indwelling Catheter: Accurate Measurement of Urinary Output in Critically Ill Patients Urinary Catheter Date of Insertion: 08/09/20 Urinary Catheter Time of Insertion: 22:15 Data : 08/16/20 03:10 08/17/20 03:29 Other Labs: Laboratory Last Values WBC 10.5 10^3/uL (4.0-10.0) H 08/16/20 03:10 RBC 3.61 10^6/uL (4.1-5.3) L 08/16/20 03:10 Hgb 10.2 g/dL (11.5-15.3) L 08/16/20 03:10 Hct 31.9 % (37.0-47.0) L 08/16/20 03:10 MCV 88.4 fL (81-99) 08/16/20 03:10 MCH 28.3 pg (28.0-34.0) 08/16/20 03:10 MCHC 32.0 g/dL (30.0-36.0) 08/16/20 03:10 RDW 14.6 % (12.1-15.1) 08/16/20 03:10 Plt Count 287 10^3/cmm (130-400) 08/16/20 03:10 MPV 11.2 fL (7.4-10.4) H 08/16/20 03:10 Neut % (Auto) 85.1 % 08/16/20 03:10 Lymph % (Auto) 6.2 % 08/16/20 03:10 [place] % (Auto) 4.7 % 08/16/20 03:10 Eos % (Auto) 3.0 % 08/16/20 03:10 Baso % (Auto) 0.7 % 08/16/20 03:10 Neut # (Auto) 8.94 10^3/uL (1.8-7.7) H 08/16/20 03:10 Lymph # (Auto) 0.7 10^3/uL (0.8-4.8) L 08/16/20 03:10 [place] # (Auto) 0.5 10^3/uL (0.2-0.9) 08/16/20 03:10 Eos # (Auto) 0.3 10^3/uL (0.0-0.8) 08/16/20 03:10 Baso # (Auto) 0.1 10^3/uL (0.0-0.1) 08/16/20 03:10 Nucleated RBC % (auto) 0 % 08/16/20 03:10 Nucleated RBCs # 0.0 /100WBC 08/16/20 03:10 Differential Comment Yes 08/15/20 10:00 APTT 36.8 SECONDS (23.9-36.7) H 08/09/20 21:13 Specimen Type Arterial 08/13/20 04:58 Sample Site Brachial, left 08/13/20 04:58 ABG pH 7.34 (7.35-7.45) L 08/13/20 04:58 ABG pCO2 32.6 mmHg (35-45) L 08/13/20 04:58 ABG pO2 87.3 mmHg (80.0-100.0) 08/13/20 04:58 ABG HCO3 17.6 mmol/L (22-26) L 08/13/20 04:58 ABG O2 Saturation 98.3 08/10/20 01:16 ABG Base Excess -7.4 mmol/L (-2.0-2.0) L 08/13/20 04:58 Jaren Test N/a 08/13/20 04:58 A-a O2 Gradient 28.0 mmHg (5-10) H 08/10/20 01:16 Hematocrit 27.1 % (37-47) L 08/13/20 04:58 Hgb O2 Saturation 96.6 % (95-100) 08/10/20 01:16 Carboxyhemoglobin 0.8 %THgb (0.4-20.1) 08/10/20 01:16 Methemoglobin 1.0 % (0.4-1.5) 08/10/20 01:16 Total Hemoglobin 12.0 g/dL (12-16) 08/10/20 01:16 Sodium 133.0 mmol/L (131-143) 08/10/20 01:16 Potassium 4.6 mmol/L (3.5-5.0) 08/10/20 01:16 Glucose 147.0 mg/dL (70-115) H 08/10/20 01:16 Ionized Calcium 1.2 mmol/L (1.1-1.4) 08/10/20 01:16 O2 Delivery Device Vent 08/13/20 04:58 O2 Liters/Min 50.0 % 08/09/20 22:30 FiO2 40.0 % 08/13/20 04:58 Tidal Volume 0.45 08/13/20 04:58 PEEP 5.0 cmH20 08/13/20 04:58 Bioinformatics Specialist ID Shania 08/13/20 04:58 Sodium 135 mmol/L (136-145) L 08/17/20 03:29 Potassium 3.5 mmol/L (3.5-5.1) 08/17/20 03:29 Chloride 100 mmol/L (98-107) 08/17/20 03:29 Carbon Dioxide 22 mmol/L (22-29) 08/17/20 03:29 Anion Gap 16.5 (5-19) 08/17/20 03:29 BUN 43 mg/dL (8-23) H 08/17/20 03:29 Creatinine 2.7 mg/dL (0.5-0.9) H 08/17/20 03:29 GFR Calculation Not Reportable 08/17/20 03:29 Glucose 112 mg/dL (65-115) 08/17/20 03:29 POC Glucose 106 mg/dL (70-110) 08/14/20 07:48 Calculated Osmolality 292 mOsm/kg (285-295) 08/17/20 03:29 Calcium 8.6 mg/dL (8.5-10.5) 08/17/20 03:29 Phosphorus 3.6 mg/dL (2.5-4.5) 08/17/20 03:29 Magnesium 1.9 mg/dL (1.7-2.3) 08/17/20 03:29 Iron 15 ug/dL (37-145) L 08/12/20 03:55 TIBC 128 mcg/dl 08/12/20 03:55 % Saturation 11.7 % (20-50) L 08/12/20 03:55 Unsat Iron Binding 113 ug/dL (112-347) 08/12/20 03:55 Total Bilirubin 0.4 mg/dL (0.15-1.2) 08/17/20 03:29 AST 27 U/L (0-32) 08/17/20 03:29 ALT 15 U/L (0-33) 08/17/20 03:29 Alkaline Phosphatase 67 IU/L (35-105) 08/17/20 03:29 Creatine Kinase 24 U/L (26-192) L 08/11/20 22:03 Troponin T Baseline 306 ng/L (0-10) H* 08/09/20 21:13 Troponin T 120 Minute 284.2 ng/L (0-10) H 08/09/20 23:16 Delta Troponin T -21.8 ABS# (0-10) L 08/09/20 23:16 Troponin T Hi Sens 6Hr 300.6 ng/L (0-10) H 08/10/20 03:15 Troponin T Hi Sens 6Hr Delta -5.4 ng/L (0-12) L 08/10/20 03:15 NT-Pro-B Natriuret Pep 32403 pg/mL (0-450) H 08/09/20 21:13 Total Protein 6.4 g/dL (6.6-8.7) L 08/17/20 03:29 Albumin 2.7 g/dL (3.5-5.2) L 08/17/20 03:29 Globulin 3.7 g/dL (1.3-4.6) 08/17/20 03:29 Lipase 89 U/L (13-60) H 08/09/20 21:13 Procalcitonin 0.65 ng/mL (0-0.5) H 08/14/20 03:15 Urine Color Yellow (Yellow) 08/11/20 09:30 Urine Appearance Clear (CLEAR) 08/11/20 09:30 Urine pH 5.0 (5-7) 08/11/20 09:30 Ur Specific [place] 1.020 (1.005-1.030) 08/11/20 09:30 Urine Protein 1+ (Negative) H 08/11/20 09:30 Urine Glucose (UA) Norm (Normal) 08/11/20 09:30 Urine Ketones Negative (Negative) 08/11/20 09:30 Urine Blood 2+ (Negative) H 08/11/20 09:30 Urine Nitrate Negative (Negative) 08/11/20 09:30 Urine Bilirubin Neg (Negative) 08/11/20 09:30 Urine Urobilinogen Norm mg/dL (Negative) 08/11/20 09:30 Ur Leukocyte Esterase 1+ (Negative) H 08/11/20 09:30 Urine RBC 15-25 /hpf (0-2) H 08/11/20 09:30 Urine WBC 25-40 /hpf (0-5) H 08/11/20 09:30 Ur Squamous Epith Cells 25-40 /hpf (0-5) H 08/11/20 09:30 Amorphous Sediment Not Reportable 08/11/20 09:30 Urine Bacteria 1+ /hpf (NONE) H 08/11/20 09:30 Hyaline Casts 5-10 /lpf H 08/11/20 09:30 Urine Mucus 1+ /hpf 08/11/20 09:30 Urine Yeast 1+ /hpf H 08/11/20 09:30 Ur Random Sodium 19 mmol/L 08/11/20 09:30 Ur Random Potassium 51 mmol/L 08/11/20 09:30 Ur Random Chloride 23 mmol/L 08/11/20 09:30 Fluid Color Pale yellow 08/15/20 10:00 Fluid Appearance Clear 08/15/20 10:00 Fluid Specific Grav 1.005 08/15/20 10:00 Fluid pH 8.0 08/15/20 10:00 Fluid WBC 54 /uL 08/15/20 10:00 Fluid RBC 0 10^3/uL 08/15/20 10:00 Fld Polynuclear WBCs # 0.011 08/15/20 10:00 Fld Polynuclear WBCs % 20.400 % 08/15/20 10:00 Fl Mononucl WBCs #(Auto) 0.043 08/15/20 10:00 Fl Mononuclear % Auto 79.600 % 08/15/20 10:00 Fluid Glucose 111.0 mg/dL 08/15/20 10:00 Fluid Albumin 0.9 g/dL 08/15/20 10:00 Fluid LDH 72 U/L 08/15/20 10:00 Fluid Amylase 22 U/L 08/15/20 10:00 Fluid Alk Phosphatase 6 IU/L 08/15/20 10:00 Fluid Cholesterol 17 mg/dL (0-200) 08/15/20 10:00 Fluid Triglycerides 40 mg/dL (0-150) 08/15/20 10:00 Fluid Uric Acid 9 mg/dL 08/15/20 10:00 Pleural Total Protein 1.4 g/dL 08/15/20 10:00 Random Vancomycin < 4.0 ug/mL (20.0-40.0) L 08/11/20 22:03 Influenza Type A Ag Negative (Negative) 08/09/20 21:13 Influenza Type B Ag Negative (Negative) 08/09/20 21:13 SARS-CoV-2 Ag (Rapid) Negative (Negative) 08/09/20 21:13 Ref Test Comments Negative (Negative) 08/11/20 22:03 Micro: Microbiology 08/15/20 10:00 Gram Stain - Final Pleural Fluid Anaerobic Culture - Preliminary Body Fluid Culture - Preliminary 08/12/20 18:20 Gram Stain - Final Pleural Fluid Anaerobic Culture - Preliminary Body Fluid Culture - Final A&P Assessment and plan (1) Acute exacerbation of CHF (congestive heart failure): Patient with clinical features of intermittent pulmonary edema. Currently seems to be stable. Possibly ischemic. There is further evaluation. Consider Lexiscan stress, before hospital discharge Status: Acute Qualifiers: Heart failure type: diastolic Qualified Code(s): I50.33 - Acute on chronic diastolic (congestive) heart failure (2) Bilateral pleural effusion: S/p multiple thoracentesis. Currently has significant improvement. Continue on the current measures. Status: Acute (3) Recent non-ST elevation myocardial infarction: Patient had features of a non-ST elevation myocardial infarction, during the previous hospital admission. Her current troponin T is are negative for acute myocardial injury. Based on the results of the myocardial perfusion imaging, further recommendations will be made Status: Acute (4) Acute kidney injury superimposed on chronic kidney disease: BUN/creatinine still stays high. Slowly trending down. Nephrology is adjusting the dose of Lasix Status: Acute (5) Peripheral arterial disease: Patient has no resting claudication at this point. We will continue the current management. Status: Acute (6) Essential hypertension: I may restart the amlodipine to 10 mg p.o. daily. Continue monitoring the blood pressure closely. Status: Inactive Additional A&P Information We may go ahead and schedule for a Lexiscan/sestamibi/sestamibi stress test tomorrow. Based on the results, further recommendations will be made Attestations Medical Necessity Statement*: Patient requires continued hospital stay for close monitoring and further management Coding Level of Care Code Acute Fusing Machine Operator for Janice Long Diagnoses Acute exacerbation of CHF (congestive heart failure) I50.33 Heart failure type: diastolic Bilateral pleural effusion J90 Recent non-ST elevation myocardial infarction Acute kidney injury superimposed on chronic kidney disease N17.9; N18.9 Peripheral arterial disease I73.9 Essential hypertension I10
--- NOTE | 2020-08-17 17:06 | PC.NURSE ---
dr valenzuela and dr. stroud in. pt. states she wants to go home.
[2020-08-17] MEDS: amlodipine 10 mg Tablet PO (17:08)
--- NOTE | 2020-08-17 18:08 | ECG_ITS ---
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 Interpretive Statements NAME OF STUDY: LEXISCAN SESTAMIBI STRESS TEST INDICATION: RECURRENT PULMONARY EDEMA/NSTEMI, PROCEDURE: At the baseline, the EKG revealed normal sinus rhythm with a poor R wave progression. Left axis deviation. Possible old inferior wall [place]. Nonspecific ST changes. the baseline blood pressure was 179/59 mm Hg with a heart rate of 70 beats/min. Lexiscan was infused over a period of 20 seconds. A total of 0.4 milligrams of Lexiscan was infused. The stress phase was continued for a total of 5 minutes. Heart rate at the end of the stress phase was 93 with a blood pressure 115/56. The EKG at the peak infusion revealed no significant changes. Sestamibi was injected 20 seconds after the Lexiscan infusion. Blood pressure at the end of the recovery phase was 157/56 with a heart rate of 83 per minute. CONCLUSION: 1. No significant EKG changes with the LexiScan infusion 2. No LexiScan induced chest pain or cardiac arrhythmia 3. Normal blood pressure and heart rate response 4. Sestamibi/sestamibi perfusion scan pending; see separate report. Electronically Signed On 08-19-2020 10:14:37 LIVING SUPERVISOR by Tanna Dickson M.D. [email or web address]
--- NOTE | 2020-08-17 18:11 | PM.PN ---
Subjective Subjective: Interval history: 75-year-old female with a past medical history significant for hypertension, hyperlipidemia, diabetes mellitus, chronic stage 3 kidney disease, moderate aortic stenosis, peripheral vascular disease, chronic non-healing right calcaneal wound, who was initially admitted to hospital from 08/04/20 to 08/05/20 with respiratory failure requiring mechanical ventilation, aspiration pneumonia, worsening renal failure, upper GI bleed s/p EGD showing gastrititis/duodenitis requiring multiple transfusions, NSTEMI who was readmitted on 08/09 with respiratory distress. Initial laboratory work up had shown a WBC of 15.1, hemoglobin of 10.7, hematocrit of 33.3 and a platelet count of 406. sodium 132, potassium 5.3, chloride 98, bicarb 19, BUN 33 and creatinine 2.6. At the time of discharge on 08/05 this was 1.9[place] [address]. Troponin T -> 306 -> 284.2 - > 300.6. Influenza A/B and covid ag was negative. Imaging studies showed moderate pleural effusion with adjacent basilar consolidation vs atelectasis. CT Chest was then performed on 08/11 which showed moderately large right and moderate left pleural effusion, subsegmental consolidative alveolar airspace disease bilaterally with air bronchograms, ground glass interstitial lung disease suspecious for focal edema and mediastinal/suspected hilar lymphadenopathy. Patient was intubated due to increase work of breathing and placed on mechanical ventilation. Initially started on zyvox 600 mg IV q12hr, Cefepime 1g iv q24hr and Heparin gtt. On 08/14 she was extubated to bipap which was later weaned to o2 via NC. Pulmonary assisted in the management. Right sided thorocentesis was performed on 08/12 where a 1100 cc straw colored transudative fluid was drained. On 08/15 left sided thoracentesis was performed where 600cc of transudative fluid was drained. Analysis confirmed transudative fluid. Patient was continued on antibiotics until 08/16. She was suspected to primary have respiratory failure due to fluid overload. Was eventually started on dieresis with lasix/metalaxone. Oxygen was weaned to 4L of o2 via NC. Due to elevated troponin she was seen by cardiology. Initially started on heparin gtt however this was stopped due to recent upper GI bleed. She was continued on high dose statin with lipitor 80 mg po daily, coreg 3.125 mg PO BID. Planned to eventually need a stress test and possible cardiac cath. Renal function remained fairly stable. Initially increased to 3.6 however improved to 2.7. This was likely patients new baseline. Noted to have good urine output on diuretics. 08/17/20 Patient was doing well overnight. Complaining of sacral and right heel discomfort from prior decubitus ulcers however this was not new. No fever, or chills. Oxygen saturation were stable on 4L of o2 via NC. Tolerating diet. Awaiting nuclear stress test on 08/18/20. Denied chest pain or worsening respiratory distress. Medications: Reviewed: Yes Medication Review Details: Current Medications Acetaminophen (Acetaminophen 325 Mg Tablet) 650 mg PO Q6H PRN PRN Reason: FEVER Last Admin: 08/11/20 15:34 Dose: 650 mg Documented by: Hydrocodone Bitart/Acetaminophen (Hydrocodone-Acetaminophen 5-325 Mg Tablet) 1 tab PO Q6H PRN PRN Reason: MODERATE PAIN Last Admin: 08/15/20 18:30 Dose: 1 tab Documented by: Albuterol/Ipratropium (Ipratropium-Albuterol 3 Ml Neb) 3 ml INHALATION Q6H.RESPIRATORY PRN PRN Reason: SHORTNESS OF BREATH Last Admin: 08/13/20 20:35 Dose: 3 ml Documented by: Atorvastatin Calcium (Atorvastatin 40 Mg Tablet) 80 mg PO BEDTIME [facility] Last Admin: 08/15/20 21:16 Dose: 80 mg Documented by: Carvedilol (Carvedilol 3.125 Mg Tablet) 3.125 mg PO BID [facility] Last Admin: 08/15/20 18:34 Dose: 3.125 mg Documented by: Furosemide (Furosemide 10 Mg/Ml Sdv 4ml) 40 mg IVP Q12H [facility] Last Admin: 08/15/20 21:16 Dose: 40 mg Documented by: Cefepime HCl 1,000 mg/ Sodium (Chloride) 50 mls @ 100 mls/hr IV Q24H [facility]; Protocol Last Admin: 08/15/20 06:00 Dose: 100 mls/hr Documented by: Dexmedetomidine HCl 400 mcg/ (Sodium Chloride) 104 mls @ 0 mls/hr IV .Q0M [facility]; Protocol Last Admin: 08/15/20 08:40 Dose: 0.1 mcg/kg/hr, 1.4 mls/hr Documented by: Linezolid (Zyvox Premix) 600 mg in 300 mls @ 300 mls/hr IV Q12H [facility] Last Admin: 08/15/20 19:53 Dose: 300 mls/hr Documented by: Lorazepam (Lorazepam 2 Mg/Ml Inj 1 Ml) 0.5 mg IVP Q4H PRN PRN Reason: ANXIETY Last Admin: 08/14/20 09:10 Dose: 0.5 mg Documented by: Morphine Sulfate (Morphine 4 Mg/Ml Sdv 1 Ml) 1 mg IVP Q2H PRN PRN Reason: SEVERE PAIN Last Admin: 08/15/20 15:13 Dose: 1 mg Documented by: Ondansetron HCl (Ondansetron 2 Mg/Ml Sdv 2 Ml) 4 mg IVP Q4H PRN PRN Reason: NAUSEA AND VOMITING Last Admin: 08/16/20 03:42 Dose: 4 mg Documented by: Pantoprazole Sodium (Pantoprazole Dr 40 Mg Tablet) 40 mg PO DAILY [facility] Last Admin: 08/15/20 19:53 Dose: 40 mg Documented by: Sodium Bicarbonate (Sodium Bicarbonate 650 Mg Tablet) 650 mg PO TID [facility] Last Admin: 08/15/20 21:16 Dose: 650 mg Documented by: Vitals/I&O/Wt Last Vital Signs Temp 98 F 08/17/20 04:00 Pulse 63 08/17/20 16:00 Resp 19 H 08/17/20 16:00 BP 174/78 08/17/20 16:00 Pulse Ox 95 08/17/20 16:00 08/17/20 08/17/20 08/17/20 06:59 14:59 22:59 Intake Total 60 / 660 480 / 480 Output Total 750 / 1150 1150 / 1150 Balance -690 / -490 -670 / -670 Weight last 48 hrs Weight 60.5 kg Physical Exam Narrative: EXAM NARRATIVE: General exam no apparent distress, interactive, on 02 via IN HEENT: Grossly unremarkable Cardiovascular regular rate and rhythm without murmur Lungs clear but with diminished breath sounds bilaterally, non-labored respiration Abdomen is soft, positive bowel sounds Extremities no cyanosis clubbing . right heel ulcer has dressing. No surrounding erythema or edema Urinary Catheter Management^: Mcfarland: Cath Placed During This Visit: yes Reason for Continuing Indwelling Catheter: Accurate Measurement of Urinary Output in Critically Ill Patients Urinary Catheter Date of Insertion: 08/09/20 Urinary Catheter Time of Insertion: 22:15 Data : 08/16/20 03:10 08/17/20 03:29 Micro: Microbiology 08/15/20 10:00 Gram Stain - Final Pleural Fluid Anaerobic Culture - Preliminary Body Fluid Culture - Preliminary 08/12/20 18:20 Gram Stain - Final Pleural Fluid Anaerobic Culture - Preliminary Body Fluid Culture - Final A&P Assessment and plan (1) GERARD (acute kidney injury): Status: Acute (2) Acute exacerbation of CHF (congestive heart failure): Lasix 40 mg IV BID Metalaxone Daily weight Strict input and output recording Monitor urine output S/P ECHO - pEF, Moderate Cardiology on board. Status: Acute Qualifiers: Heart failure type: diastolic Qualified Code(s): I50.33 - Acute on chronic diastolic (congestive) heart failure (3) Hospital-acquired pneumonia: Procalcitonin noted Agree with pulmonary Monitor off abx Previously on cefepime/zyvox Culture - NGTD Status: Acute (4) Recent non-ST elevation myocardial infarction: Cardiology on board No asa due to recent UGI bleed Continue statin,coreg Plan for Stress test in am Status: Acute (5) Peripheral arterial disease: Status: Acute (6) Bilateral pleural effusion: S/P bilateral thoracentesis Transudative Pulmonary on board. Status: Acute Additional A&P Information Additional Medical Problems Acute on chronic stage 3 kidney disease - Nephrology on board - Creatinine improving - Likely at new baseline - Mcfarland in place - Monitor urine output - Repeat BMP in am Chronic decubitus ulcer/ B/L Calcaneal wounds - Continue pressure off-loading - Not acutely infected - Continue wound care Peripheral vascular disease - No antiplatelets due to GI bleed - Will d/w interventional cardiology - Possible plan for peripheral angiogram - Does follow with vascular surgery( CTS) outpatient GI ppx - PPI Attestations Medical Necessity Statement*: Continue hospitalization for management of respiratory failure, non ST elevation [place], renal failure. Time Spent in Patient Care: Greater than 35 minutes (>than 50% of time spent in counselling and/or direct pt care on unit). Coding Level of Care Code Acute Corporate Communications Specialist for [facility] [employer] [facility] [employer] Fwd Diagnoses GERARD (acute kidney injury) N17.9 Acute exacerbation of CHF (congestive heart failure) I50.33 Heart failure type: diastolic Hospital-acquired pneumonia J18.9; Y95 Recent non-ST elevation myocardial infarction Peripheral arterial disease I73.9 Bilateral pleural effusion J90
--- NOTE | 2020-08-17 18:36 | PC.NURSE ---
resting quietly at this time. has c/o pain thru out the day with right heel ,also coccyx area.
--- NOTE | 2020-08-17 20:17 | P.PN_ITS ---
Subjective Subjective: Interval history: No acute events overnight No fever spikes and reducing leukocytosis 616/1150/-500-patient net -1 p.o. Lasix 40 daily Renal functions improving Overall patient is clinically improving Medications: Reviewed: Yes Medication Review Details: Current Medications Acetaminophen (Acetaminophen 325 Mg Tablet) 650 mg PO Q6H PRN PRN Reason: FEVER Last Admin: 08/11/20 15:34 Dose: 650 mg Documented by: Hydrocodone Bitart/Acetaminophen (Hydrocodone-Acetaminophen 5-325 Mg Tablet) 1 tab PO Q6H PRN PRN Reason: MODERATE PAIN Last Admin: 08/15/20 18:30 Dose: 1 tab Documented by: Albuterol/Ipratropium (Ipratropium-Albuterol 3 Ml Neb) 3 ml INHALATION Q6H.RESPIRATORY PRN PRN Reason: SHORTNESS OF BREATH Last Admin: 08/13/20 20:35 Dose: 3 ml Documented by: Atorvastatin Calcium (Atorvastatin 40 Mg Tablet) 80 mg PO BEDTIME [facility] Last Admin: 08/15/20 21:16 Dose: 80 mg Documented by: Carvedilol (Carvedilol 3.125 Mg Tablet) 3.125 mg PO BID [facility] Last Admin: 08/15/20 18:34 Dose: 3.125 mg Documented by: Furosemide (Furosemide 10 Mg/Ml Sdv 4ml) 40 mg IVP Q12H [facility] Last Admin: 08/15/20 21:16 Dose: 40 mg Documented by: Cefepime HCl 1,000 mg/ Sodium (Chloride) 50 mls @ 100 mls/hr IV Q24H [facility]; Protocol Last Admin: 08/15/20 06:00 Dose: 100 mls/hr Documented by: Dexmedetomidine HCl 400 mcg/ (Sodium Chloride) 104 mls @ 0 mls/hr IV .Q0M [facility]; Protocol Last Admin: 08/15/20 08:40 Dose: 0.1 mcg/kg/hr, 1.4 mls/hr Documented by: Linezolid (Zyvox Premix) 600 mg in 300 mls @ 300 mls/hr IV Q12H [facility] Last Admin: 08/15/20 19:53 Dose: 300 mls/hr Documented by: Lorazepam (Lorazepam 2 Mg/Ml Inj 1 Ml) 0.5 mg IVP Q4H PRN PRN Reason: ANXIETY Last Admin: 08/14/20 09:10 Dose: 0.5 mg Documented by: Morphine Sulfate (Morphine 4 Mg/Ml Sdv 1 Ml) 1 mg IVP Q2H PRN PRN Reason: SEVERE PAIN Last Admin: 08/15/20 15:13 Dose: 1 mg Documented by: Ondansetron HCl (Ondansetron 2 Mg/Ml Sdv 2 Ml) 4 mg IVP Q4H PRN PRN Reason: NAUSEA AND VOMITING Last Admin: 08/16/20 03:42 Dose: 4 mg Documented by: Pantoprazole Sodium (Pantoprazole Dr 40 Mg Tablet) 40 mg PO DAILY [facility] Last Admin: 08/15/20 19:53 Dose: 40 mg Documented by: Sodium Bicarbonate (Sodium Bicarbonate 650 Mg Tablet) 650 mg PO TID [facility] Last Admin: 08/15/20 21:16 Dose: 650 mg Documented by: Vitals/I&O/Wt Last Vital Signs Temp 98 F 08/17/20 04:00 Pulse 67 08/17/20 20:02 Resp 15 08/17/20 20:02 BP 164/85 08/17/20 18:00 Pulse Ox 98 08/17/20 20:02 08/17/20 08/17/20 08/17/20 06:59 14:59 22:59 Intake Total 60 / 660 480 / 480 Output Total 750 / 1150 1150 / 1150 250 / 1400 Balance -690 / -490 -670 / -670 -250 / -920 Weight last 48 hrs Weight 133 lb 6.075 oz Physical Exam Narrative: EXAM NARRATIVE: PHYSICAL EXAM: General: Sitting in bed not in acute respiratory distress awake and following commands HEENT:NCAT, PERRLA, EOMI Neck: Supple Lungs: Breath sounds improved bilaterally Heart: s1/s2, RRR Abd: soft, NT, ND, BS + Normoactive Extremities: No edema; bilateral heel decubiti covered with pressure dressings LOG DECKMAN: Alert awake oriented no gross FND SKIN: no rash Urinary Catheter Management^: Mcfarland: Cath Placed During This Visit: yes Reason for Continuing Indwelling Catheter: Accurate Measurement of Urinary Output in Critically Ill Patients Urinary Catheter Date of Insertion: 08/09/20 Urinary Catheter Time of Insertion: 22:15 Data : 08/16/20 03:10 08/17/20 03:29 Micro: Microbiology 08/15/20 10:00 Gram Stain - Final Pleural Fluid Anaerobic Culture - Preliminary Body Fluid Culture - Preliminary 08/12/20 18:20 Gram Stain - Final Pleural Fluid Anaerobic Culture - Preliminary Body Fluid Culture - Final A&P Assessment and plan (1) Acute exacerbation of CHF (congestive heart failure): Status: Acute Qualifiers: Heart failure type: diastolic Qualified Code(s): I50.33 - Acute on chronic diastolic (congestive) heart failure (2) Acute kidney injury superimposed on chronic kidney disease: Status: Acute (3) Hospital-acquired pneumonia: Status: Acute (4) Acute respiratory failure with hypoxia and hypercapnia: Status: Acute (5) Recent non-ST elevation myocardial infarction: Status: Acute (6) Bilateral pleural effusion: Status: Acute # Acute respiratory failure likely secondary to CHF exacerbation #Worsening renal failure in patient with CKD stage III -secondary to cardiorenal #Bilateral pleural effusions due to cardiac and renal failure- #S/p thoracentesis right pleural effusion drained 1100 cc straw-colored transudative fluid on 08/12/2020-seems like recurring on chest x-ray today morning -S/p left side thoracentesis 08/15/20 drained 600 cc straw-colored fluid resulted better ventilation-transudative in nature and cytology pending # b/l heel pain - pressure stage 1 decubiti - likely due to PAD -Patient mentation much better and she is awake.. - No fever spikes and reducing leukocytosis - 616/1150/-500-patient net -1 p.o. Lasix 40 daily - Renal functions improving - Overall patient is clinically improving - Currently awake, alert and still complaining of bilateral heel pain; saturating 94% on 4 L nasal cannula -Physical therapy -Strictly monitor I&O -Chest x-ray No residual left pleural effusion visible after thoracentesis. No evidence of pneumothorax. Improved aeration right lung base. -Patient on Coreg 3.125 p.o. twice daily and recommended Lasix 40 mg daily as well -Patient receiving morphine 1 mg every 6 as needed for her heel pain but the pain is not well controlled so added [place] 5/325 every 6 hours as needed -Can DC cefepime and Linezolid; Procalcitonin 0.65 likely due to renal insufficiency -If patient continues to spike fevers/leukocytosis-look for other infectious sources like heel decubiti -Both renal and cardiology are following the case - Transfer to floor tomorrow Recommendations conveyed to hospitalist covering the case and reported signing off the case as patient has improved clinically and respiratory ch after bilateral thoracentesis which yielded a transudative fluid secondary to CHF/renal failure; on diuresis improving renal functions and respiratory functions. Feel free to consult pulmonary as needed Attestations Medical Necessity Statement*: Acute hypoxic respiratory failure secondary to bilateral pleural effusions due to CHF exacerbation, inability to diurese adequately complicated by cardiorenal syndrome-s/p bilateral thoracentesis and improving renal functions and respiratory functions with adequate diuresis. S till cardiology to follow up to plan for femoral angiogram for bilateral decubiti Time Spent in Patient Care: Greater than 35 minutes (>than 50% of time spen t in counselling and/or direct pt care on unit) . 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
[2020-08-17] MEDS: atorvastatin 40 mg Tablet 80 MG PO (21:07)
[2020-08-18] VITALS (21 sets, daily range): BP systolic 127–165; BP diastolic 46–83; PULSE 64–86; RESP 7–20; TEMP 36.4–36.8; O2SAT 94–100
[2020-08-18] MEDS: morphine 4 mg/mL SDV 1 mL 1 MG IVP (01:51)
[2020-08-18 05:08] LABS: Alanine Aminotransferase 18 U/L (0-33); Albumin Level 2.9 g/dL (3.5-5.2); Alkaline Phosphatase 83 IU/L (35-105); Anion Gap 17.5 (5-19); Aspartate Amino Transferase 35 U/L (0-32); Blood Urea Nitrogen 42 mg/dL (8-23); Calcium 8.6 mg/dL (8.5-10.5); Carbon Dioxide 25 mmol/L (22-29); Chloride 97 mmol/L (98-107); Globulin 3.2 g/dL (1.3-4.6); Glucose 91 mg/dL (65-115); Magnesium 1.8 mg/dL (1.7-2.3); Osmolality Calculated 292 mOsm/kg (285-295); Phosphorus 3.7 mg/dL (2.5-4.5); Potassium 3.5 mmol/L (3.5-5.1); Sodium 136 mmol/L (136-145); Total Bilirubin 0.3 mg/dL (0.15-1.2); Total Protein 6.1 g/dL (6.6-8.7)
[2020-08-18] MEDS: FUROsemide 40 mg Tablet PO ×2 (06:21→17:26)
--- NOTE | 2020-08-18 07:36 | P.PN_ITS ---
Subjective Subjective: Interval history: comfortable on NC02. getting stress test today. no n/v/f/c/serrano/d/itching. + edema Medications: Reviewed: Yes Medication Review Details: Current Medications Acetaminophen (Acetaminophen 325 Mg Tablet) 650 mg PO Q6H PRN PRN Reason: FEVER Last Admin: 08/11/20 15:34 Dose: 650 mg Documented by: Hydrocodone Bitart/Acetaminophen (Hydrocodone-Acetaminophen 5-325 Mg Tablet) 1 tab PO Q6H PRN PRN Reason: MODERATE PAIN Last Admin: 08/17/20 15:39 Dose: 1 tab Documented by: Albuterol/Ipratropium (Ipratropium-Albuterol 3 Ml Neb) 3 ml INHALATION Q6H.RESPIRATORY PRN PRN Reason: SHORTNESS OF BREATH Last Admin: 08/13/20 20:35 Dose: 3 ml Documented by: Aminophylline (Aminophylline 25 Mg/Ml Sdv 10 Ml) 25 mg IVP Q2M PRN PRN Reason: see dose instructions Stop: 08/19/20 07:02 Amlodipine Besylate (Amlodipine 10 Mg Tablet) 10 mg PO DAILY [facility] Last Admin: 08/17/20 17:08 Dose: 10 mg Documented by: Atorvastatin Calcium (Atorvastatin 40 Mg Tablet) 80 mg PO BEDTIME [facility] Last Admin: 08/17/20 21:07 Dose: 80 mg Documented by: Carvedilol (Carvedilol 3.125 Mg Tablet) 3.125 mg PO BID [facility] Last Admin: 08/17/20 19:39 Dose: 3.125 mg Documented by: Docusate Sodium (Docusate Sodium 100 Mg Capsule) 100 mg PO DAILY [facility] Last Admin: 08/17/20 10:13 Dose: 100 mg Documented by: Furosemide (Furosemide 40 Mg Tablet) 40 mg PO BID@06,18 [facility] Last Admin: 08/18/20 06:21 Dose: 40 mg Documented by: Lorazepam (Lorazepam 2 Mg/Ml Inj 1 Ml) 0.5 mg PO Q4H PRN PRN Reason: ANXIETY Metolazone (Metolazone 5 Mg Tablet) 5 mg PO DAILY [facility] Last Admin: 08/17/20 10:15 Dose: 5 mg Documented by: Morphine Sulfate (Morphine 4 Mg/Ml Sdv 1 Ml) 1 mg IVP Q2H PRN PRN Reason: SEVERE PAIN Last Admin: 08/18/20 01:51 Dose: 1 mg Documented by: Nitroglycerin (Nitroglycerin 0.4 Mg Sublingual Tablet) 0.4 mg SUBLINGUAL Q5M PRN PRN Reason: CHEST PAIN Stop: 08/19/20 07:02 Ondansetron HCl (Ondansetron 4 Mg Tablet) 4 mg PO Q6H PRN PRN Reason: NAUSEA AND VOMITING Last Admin: 08/17/20 15:38 Dose: 4 mg Documented by: Ondansetron HCl (Ondansetron 2 Mg/Ml Sdv 2 Ml) 4 mg IVP Q2M PRN PRN Reason: NAUSEA Pantoprazole Sodium (Pantoprazole Dr 40 Mg Tablet) 40 mg PO DAILY [facility] Last Admin: 08/17/20 10:13 Dose: 40 mg Documented by: Regadenoson (Regadenoson 0.4 Mg/5 Ml Syringe) 0.4 mg IVP ONCE PRN PRN Reason: Lexiscan Stress Test Sodium Bicarbonate (Sodium Bicarbonate 650 Mg Tablet) 325 mg PO TID [facility] Last Admin: 08/17/20 21:07 Dose: 325 mg Documented by: Vitals/I&O/Wt Last Vital Signs Temp 98 F 08/17/20 04:00 Pulse 71 08/18/20 06:00 Resp 15 08/18/20 06:00 BP 162/73 08/18/20 06:00 Pulse Ox 97 08/18/20 06:00 08/17/20 08/18/20 08/18/20 22:59 06:59 14:59 Intake Total 150 / 630 150 / 780 Output Total 250 / 1400 1000 / 2400 Balance -100 / -770 -850 / -1620 Weight last 48 hrs Weight 60.5 kg Physical Exam Narrative: EXAM NARRATIVE: comfortable in bed, nc 02. interactive, less SOB heent- nca/t, eomi neck supple lungs per RN- good air movement, dull bases, wheezes and crackles b/l heart - reg, +HSM abd soft, nt, +BS ext 1+ b/l leg edema- improving neuro- a,a, o x 3 Urinary Catheter Management^: Mcfarland: Cath Placed During This Visit: yes Reason for Continuing Indwelling Catheter: Accurate Measurement of Urinary Output in Critically Ill Patients Urinary Catheter Date of Insertion: 08/09/20 Urinary Catheter Time of Insertion: 22:15 Data : 08/16/20 03:10 08/18/20 04:02 Micro: Microbiology 08/15/20 10:00 Gram Stain - Final Pleural Fluid Anaerobic Culture - Preliminary Body Fluid Culture - Preliminary 08/12/20 18:20 Gram Stain - Final Pleural Fluid Anaerobic Culture - Preliminary Body Fluid Culture - Final A&P Additional A&P Information 1. 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 htn improving on multiple meds- may add aldactone 2. Congestive heart failure -diuresis per cardiology/ medicine -recent NSTEMI -for stress test today -if needs cardiac cath- currently high risk for SHAILA, and may need HD post cath 3. Pneumonia -off abx as per pulm 4. Metabolic acidosis, improved -hold sodium bicarb 5. Anemia, Hb improved 6. hyponatremia- monitor on lasix and metolazone -improving 7. replace k 8. 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
[2020-08-18] MEDS: regadenoson 0.4 Mg/5 ml Syringe IVP (09:08)
[2020-08-18] MEDS: ondansetron 2 mg/ML SDV 2 mL 4 MG IVP (09:17)
[2020-08-18] MEDS: sodium bicarbonate 650 mg Tablet 325 MG PO ×3 (10:48→20:30)
[2020-08-18] MEDS: HYDROcodone-acetaminophen 5-325 mg Tablet 1 TAB PO ×2 (10:48→20:29)
[2020-08-18] MEDS: docusate sodium 100 mg Capsule PO (10:49)
[2020-08-18] MEDS: carvedilol 3.125 mg Tablet PO ×2 (10:49→17:26)
[2020-08-18] MEDS: amlodipine 10 mg Tablet PO (10:49)
[2020-08-18] MEDS: pantoprazole DR 40 mg Tablet PO (10:49)
[2020-08-18] MEDS: metOLazone 5 MG Tablet PO (10:49)
[2020-08-18 10:54] LABS: Basophils # 0.1 10^3/uL (0.0-0.1); Basophils % 1.2 %; Eosinophils # 0.5 10^3/uL (0.0-0.8); Eosinophils % 4.8 %; Hematocrit 33.6 % (37.0-47.0); Hemoglobin 10.9 g/dL (11.5-15.3); Lymphocytes # 0.9 10^3/uL (0.8-4.8); Lymphocytes % 9.1 %; Mean Corpuscular HGB Conc 32.4 g/dL (30.0-36.0); Mean Corpuscular Hemoglobin 28.2 pg (28.0-34.0); Mean Corpuscular Volume 86.8 fL (81-99); Monocytes # 0.5 10^3/uL (0.2-0.9); Monocytes % 5.2 %; Neutrophils # 7.43 10^3/uL (1.8-7.7); Neutrophils % 79.3 %; Nucleated Red Blood Cells % 0 %; Platelet Count 296 10^3/cmm (130-400); Red Blood Count 3.87 10^6/uL (4.1-5.3); Red Cell Distribution Width 14.4 % (12.1-15.1); White Blood Count 9.4 10^3/uL (4.0-10.0)
--- NOTE | 2020-08-18 15:22 | P.PN_ITS ---
Subjective Subjective: Interval history: 75-year-old female with a past medical history significant for hypertension, hyperlipidemia, diabetes mellitus, chronic stage 3 kidney disease, moderate aortic stenosis, peripheral vascular disease, chronic non-healing right calcaneal wound, who was initially admitted to hospital from 08/04/20 to 08/05/20 with respiratory failure requiring mechanical ventilation, aspiration pneumonia, worsening renal failure, upper GI bleed s/p EGD showing gastrititis/duodenitis requiring multiple transfusions, NSTEMI who was readmitted on 08/09 with respiratory distress. Initial laboratory work up had shown a WBC of 15.1, hemoglobin of 10.7, hematocrit of 33.3 and a platelet count of 406. sodium 132, potassium 5.3, chloride 98, bicarb 19, BUN 33 and creatinine 2.6. At the time of discharge on 08/05 this was 1.9[place] [address]. Troponin T -> 306 -> 284.2 - > 300.6. Influenza A/B and covid ag was negative. Imaging studies showed moderate pleural effusion with adjacent basilar consolidation vs atelectasis. CT Chest was then performed on 08/11 which showed moderately large right and moderate left pleural effusion, subsegmental consolidative alveolar airspace disease bilaterally with air bronchograms, ground glass interstitial lung disease suspecious for focal edema and mediastinal/suspected hilar lymphadenopathy. Patient was intubated due to increase work of breathing and placed on mechanical ventilation. Initially started on zyvox 600 mg IV q12hr, Cefepime 1g iv q24hr and Heparin gtt. On 08/14 she was extubated to bipap which was later weaned to o2 via NC. Pulmonary assisted in the management. Right sided thorocentesis was performed on 08/12 where a 1100 cc straw colored transudative fluid was drained. On 08/15 left sided thoracentesis was performed where 600cc of transudative fluid was drained. Analysis confirmed transudative fluid. Patient was continued on antibiotics until 08/16. She was suspected to primary have respiratory failure due to fluid overload. Was eventually started on dieresis with lasix/metalaxone. Oxygen was weaned to 4L of o2 via NC. Due to elevated troponin she was seen by cardiology. Initially started on heparin gtt however this was stopped due to recent upper GI bleed. She was continued on high dose statin with lipitor 80 mg po daily, coreg 3.125 mg PO BID. Planned to eventually need a stress test and possible cardiac cath. Renal function remained fairly stable. Initially increased to 3.6 however improved to 2.7. This was likely patients new baseline. Noted to have good urine output on diuretics. 08/17/20 Patient was doing well overnight. Complaining of sacral and right heel discomfort from prior decubitus ulcers however this was not new. No fever, or chills. Oxygen saturation were stable on 4L of o2 via NC. Tolerating diet. Awaiting nuclear stress test on 08/18/20. Denied chest pain or worsening respiratory distress. 08/18 No new clinical events overnight.Adequate urine output. Seen post stress test. No chest pain or dyspena. At baseline o2. Medications: Reviewed: Yes Medication Review Details: Current Medications Acetaminophen (Acetaminophen 325 Mg Tablet) 650 mg PO Q6H PRN PRN Reason: FEVER Last Admin: 08/11/20 15:34 Dose: 650 mg Documented by: Hydrocodone Bitart/Acetaminophen (Hydrocodone-Acetaminophen 5-325 Mg Tablet) 1 tab PO Q6H PRN PRN Reason: MODERATE PAIN Last Admin: 08/15/20 18:30 Dose: 1 tab Documented by: Albuterol/Ipratropium (Ipratropium-Albuterol 3 Ml Neb) 3 ml INHALATION Q6H.RESPIRATORY PRN PRN Reason: SHORTNESS OF BREATH Last Admin: 08/13/20 20:35 Dose: 3 ml Documented by: Atorvastatin Calcium (Atorvastatin 40 Mg Tablet) 80 mg PO BEDTIME [facility] Last Admin: 08/15/20 21:16 Dose: 80 mg Documented by: Carvedilol (Carvedilol 3.125 Mg Tablet) 3.125 mg PO BID [facility] Last Admin: 08/15/20 18:34 Dose: 3.125 mg Documented by: Furosemide (Furosemide 10 Mg/Ml Sdv 4ml) 40 mg IVP Q12H [facility] Last Admin: 08/15/20 21:16 Dose: 40 mg Documented by: Cefepime HCl 1,000 mg/ Sodium (Chloride) 50 mls @ 100 mls/hr IV Q24H [facility]; Protocol Last Admin: 08/15/20 06:00 Dose: 100 mls/hr Documented by: Dexmedetomidine HCl 400 mcg/ (Sodium Chloride) 104 mls @ 0 mls/hr IV .Q0M [facility]; Protocol Last Admin: 08/15/20 08:40 Dose: 0.1 mcg/kg/hr, 1.4 mls/hr Documented by: Linezolid (Zyvox Premix) 600 mg in 300 mls @ 300 mls/hr IV Q12H [facility] Last Admin: 08/15/20 19:53 Dose: 300 mls/hr Documented by: Lorazepam (Lorazepam 2 Mg/Ml Inj 1 Ml) 0.5 mg IVP Q4H PRN PRN Reason: ANXIETY Last Admin: 08/14/20 09:10 Dose: 0.5 mg Documented by: Morphine Sulfate (Morphine 4 Mg/Ml Sdv 1 Ml) 1 mg IVP Q2H PRN PRN Reason: SEVERE PAIN Last Admin: 08/15/20 15:13 Dose: 1 mg Documented by: Ondansetron HCl (Ondansetron 2 Mg/Ml Sdv 2 Ml) 4 mg IVP Q4H PRN PRN Reason: NAUSEA AND VOMITING Last Admin: 08/16/20 03:42 Dose: 4 mg Documented by: Pantoprazole Sodium (Pantoprazole Dr 40 Mg Tablet) 40 mg PO DAILY [facility] Last Admin: 08/15/20 19:53 Dose: 40 mg Documented by: Sodium Bicarbonate (Sodium Bicarbonate 650 Mg Tablet) 650 mg PO TID [facility] Last Admin: 08/15/20 21:16 Dose: 650 mg Documented by: Vitals/I&O/Wt Last Vital Signs Temp 98.2 F 08/18/20 12:00 Pulse 67 08/18/20 14:00 Resp 20 H 08/18/20 14:00 BP 127/46 08/18/20 14:00 Pulse Ox 100 08/18/20 14:00 08/18/20 08/18/20 08/18/20 06:59 14:59 22:59 Intake Total 150 / 780 Output Total 1000 / 2400 Balance -850 / -1620 Weight last 48 hrs Weight 60.5 kg Physical Exam Narrative: EXAM NARRATIVE: General exam no apparent distress, interactive, on 02 via DC HEENT: Grossly unremarkable Cardiovascular regular rate and rhythm without murmur Lungs clear but with diminished breath sounds bilaterally, non-labored res piration Abdomen is soft, positive bowel sounds Extremities no cyanosis clubbing . right heel ulcer has dressing. No surrounding erythema or edema Urinary Catheter Management^: Mcfarland: Cath Placed During This Visit: yes Reason for Continuing Indwelling Catheter: Accurate Measurement of Urinary Output in Critically Ill Patients Urinary Catheter Date of Insertion: 08/09/20 Urinary Catheter Time of Insertion: 22:15 Data : 08/18/20 10:45 08/18/20 04:02 Micro: Microbiology 08/15/20 10:00 Gram Stain - Final Pleural Fluid Anaerobic Culture - Preliminary Body Fluid Culture - Final 08/12/20 18:20 Gram Stain - Final Pleural Fluid Anaerobic Culture - Preliminary Body Fluid Culture - Final A&P Assessment and plan (1) GERARD (acute kidney injury): Status: Acute (2) Acute exacerbation of CHF (congestive heart failure): Lasix 40 mg IV BID Metalaxone Daily weight Strict input and output recording Monitor urine output S/P ECHO - pEF, Moderate Cardiology on board. Status: Acute Qualifiers: Heart failure type: diastolic Qualified Code(s): I50.33 - Acute on chronic diastolic (congestive) heart failure (3) Hospital-acquired pneumonia: Procalcitonin noted Agree with pulmonary Monitor off abx Previously on cefepime/zyvox Culture - NGTD Status: Acute (4) Recent non-ST elevation myocardial infarction: Cardiology on board No asa due to recent UGI bleed Continue statin,coreg Stress test performed today - Awaiting further recommendation from cardiology Status: Acute (5) Peripheral arterial disease: Status: Acute (6) Bilateral pleural effusion: S/P bilateral thoracentesis Transudative Pulmonary on board. Status: Acute Additional A&P Information Additional Medical Problems Acute on chronic stage 3 kidney disease - Nephrology on board - Creatinine improving - Likely at new baseline - Mcfarland in place - Monitor urine output - Repeat BMP in am Chronic decubitus ulcer/ B/L Calcaneal wounds - Continue pressure off-loading - Not acutely infected - Continue wound care Peripheral vascular disease - No antiplatelets due to GI bleed - Will d/w interventional cardiology - Possible plan for peripheral angiogram - Does follow with vascular surgery( CTS) outpatient GI ppx - PPI Disposition - Ok to transfer to [facility] - Awaiting stress test results - Further discharge plan pending cardiology eval. Attestations Medical Necessity Statement*: Will require further hospitalization for cardiac work up. Time Spent in Patient Care: Greater than 35 minutes (>than 50% of time spent in counselling and/or direct pt care on unit) . 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
--- NOTE | 2020-08-18 17:50 | P.PN_ITS ---
Subjective Subjective: Interval history: Feeling much better had a stress test today Medications: Reviewed: Yes Medication Review Details: Current Medications Acetaminophen (Acetaminophen 325 Mg Tablet) 650 mg PO Q6H PRN PRN Reason: FEVER Last Admin: 08/11/20 15:34 Dose: 650 mg Documented by: Hydrocodone Bitart/Acetaminophen (Hydrocodone-Acetaminophen 5-325 Mg Tablet) 1 tab PO Q6H PRN PRN Reason: MODERATE PAIN Last Admin: 08/15/20 18:30 Dose: 1 tab Documented by: Albuterol/Ipratropium (Ipratropium-Albuterol 3 Ml Neb) 3 ml INHALATION Q6H.RESPIRATORY PRN PRN Reason: SHORTNESS OF BREATH Last Admin: 08/13/20 20:35 Dose: 3 ml Documented by: Atorvastatin Calcium (Atorvastatin 40 Mg Tablet) 80 mg PO BEDTIME KIMBERLY Last Admin: 08/15/20 21:16 Dose: 80 mg Documented by: Carvedilol (Carvedilol 3.125 Mg Tablet) 3.125 mg PO BID KIMBERLY Last Admin: 08/15/20 18:34 Dose: 3.125 mg Documented by: Furosemide (Furosemide 10 Mg/Ml Sdv 4ml) 40 mg IVP Q12H KIMBERLY Last Admin: 08/15/20 21:16 Dose: 40 mg Documented by: Cefepime HCl 1,000 mg/ Sodium (Chloride) 50 mls @ 100 mls/hr IV Q24H KIMBERLY; Protocol Last Admin: 08/15/20 06:00 Dose: 100 mls/hr Documented by: Dexmedetomidine HCl 400 mcg/ (Sodium Chloride) 104 mls @ 0 mls/hr IV .Q0M KIMBERLY; Protocol Last Admin: 08/15/20 08:40 Dose: 0.1 mcg/kg/hr, 1.4 mls/hr Documented by: Linezolid (Zyvox Premix) 600 mg in 300 mls @ 300 mls/hr IV Q12H KIMBERLY Last Admin: 08/15/20 19:53 Dose: 300 mls/hr Documented by: Lorazepam (Lorazepam 2 Mg/Ml Inj 1 Ml) 0.5 mg IVP Q4H PRN PRN Reason: ANXIETY Last Admin: 08/14/20 09:10 Dose: 0.5 mg Documented by: Morphine Sulfate (Morphine 4 Mg/Ml Sdv 1 Ml) 1 mg IVP Q2H PRN PRN Reason: SEVERE PAIN Last Admin: 08/15/20 15:13 Dose: 1 mg Documented by: Ondansetron HCl (Ondansetron 2 Mg/Ml Sdv 2 Ml) 4 mg IVP Q4H PRN PRN Reason: NAUSEA AND VOMITING Last Admin: 08/16/20 03:42 Dose: 4 mg Documented by: Pantoprazole Sodium (Pantoprazole Dr 40 Mg Tablet) 40 mg PO DAILY [facility] Last Admin: 08/15/20 19:53 Dose: 40 mg Documented by: Sodium Bicarbonate (Sodium Bicarbonate 650 Mg Tablet) 650 mg PO TID [facility] Last Admin: 08/15/20 21:16 Dose: 650 mg Documented by: Vitals/I&O/Wt Last Vital Signs Temp 98.2 F 08/18/20 12:00 Pulse 69 08/18/20 16:00 Resp 20 H 08/18/20 14:00 BP 151/51 08/18/20 16:00 Pulse Ox 100 08/18/20 16:00 08/18/20 08/18/20 08/18/20 06:59 14:59 22:59 Intake Total 150 / 780 240 / 240 Output Total 1000 / 2400 1250 / 1250 Balance -850 / -1620 -1010 / -1010 Physical Exam Narrative: EXAM NARRATIVE: GENERAL: Patient is alert, awake and oriented x3. NECK: No jugular vein distension. HEENT: No cyanosis. No icterus. No pallor. HEART: Regular S1 and S2. No murmur, rub or gallop. LUNGS: Decreased breath sound bilaterally. ABDOMEN: Soft, nontender and nondistended. Positive bowel sounds. No guarding, rebound or tenderness. CENTRAL NERVOUS SYSTEM: Grossly nonfocal. EXTREMITIES: Lower extremities without edema bilaterally. Urinary Catheter Management^: Mcfarland: Cath Placed During This Visit: yes Reason for Continuing Indwelling Catheter: Accurate Measurement of Urinary Output in Critically Ill Patients Urinary Catheter Date of Insertion: 08/09/20 Urinary Catheter Time of Insertion: 22:15 Data : 08/18/20 10:45 08/18/20 04:02 Micro: Microbiology 08/15/20 10:00 Gram Stain - Final Pleural Fluid Anaerobic Culture - Preliminary Body Fluid Culture - Final 08/12/20 18:20 Gram Stain - Final Pleural Fluid Anaerobic Culture - Preliminary Body Fluid Culture - Final A&P Assessment and plan (1) Acute exacerbation of CHF (congestive heart failure): Appear to be compensated now awaiting stress test results will decide regarding ischemia driven which may require further dependence her underlying renal function Status: Acute Qualifiers: Heart failure type: diastolic Qualified Code(s): I50.33 - Acute on chronic diastolic (congestive) heart failure (2) Bilateral pleural effusion: Improved. Status: Acute (3) Recent non-ST elevation myocardial infarction: Post [place] for ischemia burden patient underwent stress test results are pending, continue current regimen Status: Acute (4) Acute kidney injury superimposed on chronic kidney disease: As per nephrology Status: Acute (5) Peripheral arterial disease: Patient has no resting claudication at this point. We will continue the current management. Status: Acute (6) Essential hypertension: Stable. Continue current regimen Status: Inactive Additional A&P Information We may go ahead and schedule for a Lexiscan/sestamibi/sestamibi stress test tomorrow. Based on the results, further recommendations will be made Attestations Medical Necessity Statement*: Patient require continuation hospitalization for above defined care. Coding Level of Care Code Established Pt Acute Head Animal Keeper for Desting Fwd Patient Type Established History Expanded Problem Focused Exam Expanded Problem Focused Medical Decision Making Moderate Complexity Diagnoses Acute exacerbation of CHF (congestive heart failure) I50.33 Heart failure type: diastolic Bilateral pleural effusion J90 Recent non-ST elevation myocardial infarction Acute kidney injury superimposed on chronic kidney disease N17.9; N18.9 Peripheral arterial disease I73.9 Essential hypertension I10
--- NOTE | 2020-08-18 18:08 | NMCV_ITS ---
NM michelle perf SPECT r/s* [id number] Elizabeth Lima Age: 75 Gender: F : 1945 Exam Date: 08/18/2020 08:19 Ordering Phys: Tanna Dickson MD ([email or web address]) Technologist: JIMY Up Exam Location: [facility] Indications: TROUBLE BREATHING, SWELLING IN EXTREMITIES STRESS TEST Please see separate stress test report in [facility] for full findings IMAGE PROTOCOL Rest/Stress 1 Lexiscan Day Radiopharmaceutical Dose (mCi) Administration Site Administered by Rest: Tc-99m 10.8 IV JIMY Lemon Sestamibi Stress:Tc-99m 32.6 IV JIMY Up Sestamijennifer Rest: 18-Aug-2020 60 Discovery 630 Stress: 18-Aug-2020 30 Discovery 630 0.4mg Lexiscan. Supine position only as patient was unable to lay prone. SPECT RESULTS Technical Quality: Excellent Raw Data Analysis: Normal Image Corrections: No attenuation or motion correction applied Summed Stress Score: 9 Summed Rest Score: 17 Summed Difference Score: 0 PERFUSION FINDINGS Moderate areas of decreased tracer uptake in the mid and apical anterior, mid inferolateral, and all the apical segments. No significant reversibility was noted in these regions FUNCTIONAL RESULTS (calculated via Gated SPECT) Stress Image LV EF (%): 41 Stress EDV (mL):118 TID: 1.14 Stress ESV (mL):70 FUNCTIONAL FINDINGS: Segmental wall motion analysis revealed mild diffuse hypokinesia of the inferior wall, septum and the LV apex IMPRESSIONS 1. Myocardial perfusion imaging revealing moderate areas of persistent decreases uptake in the mid and apical anterior, mid inferolateral and apical segments with no significant reversibility. 2. Diminished elevation fraction of 41%. 3. Wall motion normalities as mentioned above. 4. Dilated LV cavity with an end-systolic volume of 70 mL. 5. Elevated transient ischemic dilatation ratio(1.4) may suggest endocardial ischemia. Clinical correlation is recommended. No similar previous studies are available for comparison Dr Tanna Dickson MD FACC (Electronically Signed) Final Date: 19 August 2020 09:53 S
[2020-08-18] MEDS: atorvastatin 40 mg Tablet 80 MG PO (20:29)
[2020-08-19] VITALS (23 sets, daily range): BP systolic 140–167; BP diastolic 54–83; PULSE 56–74; RESP 8–19; TEMP 36.3–36.7; O2SAT 93–99
[2020-08-19 05:17] LABS: Alanine Aminotransferase 19 U/L (0-33); Albumin Level 2.7 g/dL (3.5-5.2); Alkaline Phosphatase 74 IU/L (35-105); Anion Gap 12.2 (5-19); Aspartate Amino Transferase 37 U/L (0-32); Blood Urea Nitrogen 43 mg/dL (8-23); Calcium 8.5 mg/dL (8.5-10.5); Carbon Dioxide 31 mmol/L (22-29); Chloride 94 mmol/L (98-107); Globulin 3.5 g/dL (1.3-4.6); Glucose 117 mg/dL (65-115); Magnesium 1.6 mg/dL (1.7-2.3); Osmolality Calculated 290 mOsm/kg (285-295); Phosphorus 3.4 mg/dL (2.5-4.5); Potassium 3.2 mmol/L (3.5-5.1); Sodium 134 mmol/L (136-145); Total Bilirubin 0.3 mg/dL (0.15-1.2); Total Protein 6.2 g/dL (6.6-8.7)
[2020-08-19] MEDS: HYDROcodone-acetaminophen 5-325 mg Tablet 1 TAB PO (05:18)
[2020-08-19] MEDS: FUROsemide 40 mg Tablet PO ×2 (05:18→17:10)
[2020-08-19] MEDS: pantoprazole DR 40 mg Tablet PO (08:20)
[2020-08-19] MEDS: docusate sodium 100 mg Capsule PO (08:20)
[2020-08-19] MEDS: sodium bicarbonate 650 mg Tablet 325 MG PO (08:20)
[2020-08-19] MEDS: metOLazone 5 MG Tablet PO (08:20)
[2020-08-19] MEDS: carvedilol 3.125 mg Tablet PO ×2 (08:20→17:10)
[2020-08-19] MEDS: amlodipine 10 mg Tablet PO (08:20)
--- NOTE | 2020-08-19 09:35 | PC.CHAP ---
Pastoral Care Encounter/Spiritual Assessment Type of Contact [] Declined dulite machine bluer visit [] Patient/Family/Request visit [] Outpatient visit [] Follow-up visit [] Physician referral [] Code/Alert [] Routine visit [] Staff referral [] Actively dying [] Patient sleeping [] Family support [] [] Out of room [] Palliative care [] [] Receiving care in room [] Pre-surgical visit [] Trauma [] Long length of stay [x] ICU visit [] Other: Relational/Emotional Strength [] Patient feels connected with others/family/visitors/staff [] Distress [] Loneliness/isolation [] Abandonment Spirituality of Patient [] Person of Niyah [] Attends Advent of their Niyah [] Believes in Prayer [] Reads Bible or Pentecostalism materials [] There are Spiritual issues to be addressed Change Management Manager Interventions [x] Prayer [] Active listening [] Non-anxious presence [] Spiritual/emotional support [] Crisis/trauma care [] Spiritual counseling [] Bereavement support [] Provided bereavement packet [] Provided Bible/devotional materials [] Provided toy/stuffed animal, coloring book to patient or family member [] Provided Communion [] Anointing/[place] [] Salvation [x] Completed spiritual assessment [] Other: Impact on Illness or Injury [] Angry [] Fearful [] Anxious [] Often cries [] Exhaustion [] Unable to work [] Unable to attend yazdanism [] Unable to walk/stand [] Unable to read [] Unable to drive [] Unable to eat/drink [] Unable to sleep [] Unable to be with family [] Patient intubated [] Other: Summary Time spent with patient
--- NOTE | 2020-08-19 10:58 | PC.SOCIAL ---
*IMM UPDATE* Gave pt IMM, understood. Gave her copy of pg 2 of IMM Signed, dated, timed and placed in chart.
[2020-08-19] MEDS: ondansetron 2 mg/ML SDV 2 mL 4 MG IVP (11:47)
[2020-08-19] MEDS: acetaminophen 325 mg Tablet 650 MG PO ×2 (11:51→17:10)
--- NOTE | 2020-08-19 14:05 | PM.PN ---
Subjective Subjective: Interval history: 75-year-old female with a past medical history significant for hypertension, hyperlipidemia, diabetes mellitus, chronic stage 3 kidney disease, moderate aortic stenosis, peripheral vascular disease, chronic non-healing right calcaneal wound, who was initially admitted to hospital from 08/04/20 to 08/05/20 with respiratory failure requiring mechanical ventilation, aspiration pneumonia, worsening renal failure, upper GI bleed s/p EGD showing gastrititis/duodenitis requiring multiple transfusions, NSTEMI who was readmitted on 08/09 with respiratory distress. Initial laboratory work up had shown a WBC of 15.1, hemoglobin of 10.7, hematocrit of 33.3 and a platelet count of 406. sodium 132, potassium 5.3, chloride 98, bicarb 19, BUN 33 and creatinine 2.6. At the time of discharge on 08/05 this was 1.9[place] [address]. Troponin T -> 306 -> 284.2 - > 300.6. Influenza A/B and covid ag was negative. Imaging studies showed moderate pleural effusion with adjacent basilar consolidation vs atelectasis. CT Chest was then performed on 08/11 which showed moderately large right and moderate left pleural effusion, subsegmental consolidative alveolar airspace disease bilaterally with air bronchograms, ground glass interstitial lung disease suspecious for focal edema and mediastinal/suspected hilar lymphadenopathy. Patient was intubated due to increase work of breathing and placed on mechanical ventilation. Initially started on zyvox 600 mg IV q12hr, Cefepime 1g iv q24hr and Heparin gtt. On 08/14 she was extubated to bipap which was later weaned to o2 via NC. Pulmonary assisted in the management. Right sided thorocentesis was performed on 08/12 where a 1100 cc straw colored transudative fluid was drained. On 08/15 left sided thoracentesis was performed where 600cc of transudative fluid was drained. Analysis confirmed transudative fluid. Patient was continued on antibiotics until 08/16. She was suspected to primary have respiratory failure due to fluid overload. Was eventually started on dieresis with lasix/metalaxone. Oxygen was weaned to 4L of o2 via NC. Due to elevated troponin she was seen by cardiology. Initially started on heparin gtt however this was stopped due to recent upper GI bleed. She was continued on high dose statin with lipitor 80 mg po daily, coreg 3.125 mg PO BID. Planned to eventually need a stress test and possible cardiac cath. nuclear stress test was performed which showed moderate area of persistent decreased uptake in the mid and apical anterior, mid inferolateral and apical segments with no significant reversibility however did have elevated TID ratio at 1.4 suggesting possible endocardial ischemia. Renal function remained fairly stable. Initially increased to 3.6 however improved to 2.7. This was likely patients new baseline. Noted to have good urine output on diuretics. 08/17/20 Patient was doing well overnight. Complaining of sacral and right heel discomfort from prior decubitus ulcers however this was not new. No fever, or chills. Oxygen saturation were stable on 4L of o2 via NC. Tolerating diet. Awaiting nuclear stress test on 08/18/20. Denied chest pain or worsening respiratory distress. 08/18 No new clinical events overnight.Adequate urine output. Seen post stress test. No chest pain or dyspena. At baseline o2. 08/19 Overnight patient did have an episode of nausea and emesis. At the time of my evaluation she was lying comfortably without any distress. Noted to have adequate urine output. No episodes of chest pain. No fever or chills. Medications: Reviewed: Yes Medication Review Details: Current Medications Acetaminophen (Acetaminophen 325 Mg Tablet) 650 mg PO Q6H PRN PRN Reason: FEVER Last Admin: 08/11/20 15:34 Dose: 650 mg Documented by: Hydrocodone Bitart/Acetaminophen (Hydrocodone-Acetaminophen 5-325 Mg Tablet) 1 tab PO Q6H PRN PRN Reason: MODERATE PAIN Last Admin: 08/15/20 18:30 Dose: 1 tab Documented by: Albuterol/Ipratropium (Ipratropium-Albuterol 3 Ml Neb) 3 ml INHALATION Q6H.RESPIRATORY PRN PRN Reason: SHORTNESS OF BREATH Last Admin: 08/13/20 20:35 Dose: 3 ml Documented by: Atorvastatin Calcium (Atorvastatin 40 Mg Tablet) 80 mg PO BEDTIME COUNTS INCLUDE 234 BEDS AT THE [facility] Last Admin: 08/15/20 21:16 Dose: 80 mg Documented by: Carvedilol (Carvedilol 3.125 Mg Tablet) 3.125 mg PO BID COUNTS INCLUDE 234 BEDS AT THE [facility] Last Admin: 08/15/20 18:34 Dose: 3.125 mg Documented by: Furosemide (Furosemide 10 Mg/Ml Sdv 4ml) 40 mg IVP Q12H COUNTS INCLUDE 234 BEDS AT THE [facility] Last Admin: 08/15/20 21:16 Dose: 40 mg Documented by: Cefepime HCl 1,000 mg/ Sodium (Chloride) 50 mls @ 100 mls/hr IV Q24H COUNTS INCLUDE 234 BEDS AT THE [facility]; Protocol Last Admin: 08/15/20 06:00 Dose: 100 mls/hr Documented by: Dexmedetomidine HCl 400 mcg/ (Sodium Chloride) 104 mls @ 0 mls/hr IV .Q0M COUNTS INCLUDE 234 BEDS AT THE [facility]; Protocol Last Admin: 08/15/20 08:40 Dose: 0.1 mcg/kg/hr, 1.4 mls/hr Documented by: Linezolid (Zyvox Premix) 600 mg in 300 mls @ 300 mls/hr IV Q12H COUNTS INCLUDE 234 BEDS AT THE [facility] Last Admin: 08/15/20 19:53 Dose: 300 mls/hr Documented by: Lorazepam (Lorazepam 2 Mg/Ml Inj 1 Ml) 0.5 mg IVP Q4H PRN PRN Reason: ANXIETY Last Admin: 08/14/20 09:10 Dose: 0.5 mg Documented by: Morphine Sulfate (Morphine 4 Mg/Ml Sdv 1 Ml) 1 mg IVP Q2H PRN PRN Reason: SEVERE PAIN Last Admin: 08/15/20 15:13 Dose: 1 mg Documented by: Ondansetron HCl (Ondansetron 2 Mg/Ml Sdv 2 Ml) 4 mg IVP Q4H PRN PRN Reason: NAUSEA AND VOMITING Last Admin: 08/16/20 03:42 Dose: 4 mg Documented by: Pantoprazole Sodium (Pantoprazole Dr 40 Mg Tablet) 40 mg PO DAILY COUNTS INCLUDE 234 BEDS AT THE [facility] Last Admin: 08/15/20 19:53 Dose: 40 mg Documented by: Sodium Bicarbonate (Sodium Bicarbonate 650 Mg Tablet) 650 mg PO TID COUNTS INCLUDE 234 BEDS AT THE [facility] Last Admin: 08/15/20 21:16 Dose: 650 mg Documented by: Vitals/I&O/Wt Last Vital Signs Temp 98.0 F 08/19/20 10:00 Pulse 60 08/19/20 12:00 Resp 14 08/19/20 12:00 BP 152/54 08/19/20 12:00 Pulse Ox 99 08/19/20 12:00 08/18/20 08/19/20 08/19/20 22:59 06:59 14:59 Intake Total 390 / 390 240 / 240 Output Total 1550 / 1550 750 / 2300 675 / 675 Balance -1160 / -1160 -750 / -1910 -435 / -435 Physical Exam Narrative: EXAM NARRATIVE: General exam no apparent distress, interactive, on 02 via [place] HEENT: Grossly unremarkable Cardiovascular regular rate and rhythm without murmur Lungs clear but with diminished breath sounds bilaterally, non-labored respiration Abdomen is soft, positive bowel sounds Extremities no cyanosis clubbing . right heel ulcer has dressing. No surrounding erythema or edema Urinary Catheter Management^: Mcfarland: Cath Placed During This Visit: yes Reason for Continuing Indwelling Catheter: Accurate Measurement of Urinary Output in Critically Ill Patients Urinary Catheter Date of Insertion: 08/09/20 Urinary Catheter Time of Insertion: 22:15 Data : 08/18/20 10:45 08/19/20 04:28 Micro: Microbiology 08/15/20 10:00 Gram Stain - Final Pleural Fluid Anaerobic Culture - Preliminary Body Fluid Culture - Final 08/12/20 18:20 Gram Stain - Final Pleural Fluid Anaerobic Culture - Preliminary Body Fluid Culture - Final A&P Assessment and plan (1) GERARD (acute kidney injury): Status: Acute (2) Acute exacerbation of CHF (congestive heart failure): Lasix 40 mg PO BID Metalaxone 5 mg PO Daily Daily weight Strict input and output recording Monitor urine output S/P ECHO - pEF, Moderate Cardiology on board. negative 2.3L balance Status: Acute Qualifiers: Heart failure type: diastolic Qualified Code(s): I50.33 - Acute on chronic diastolic (congestive) heart failure (3) Hospital-acquired pneumonia: Procalcitonin noted Agree with pulmonary Monitor off abx Previously on cefepime/zyvox Culture - NGTD Status: Acute (4) Recent non-ST elevation myocardial infarction: Cardiology on board No asa due to recent UGI bleed Continue statin,coreg Stress test showed - persistent decrease uptake in multiple areas with out reversibility. TID 1.4 Await further plan from cardiology No chest pain Status: Acute (5) Peripheral arterial disease: Status: Acute (6) Bilateral pleural effusion: S/P bilateral thoracentesis Transudative Pulmonary on board. Status: Acute Additional A&P Information Additional Medical Problems Acute on chronic stage 3 kidney disease - Nephrology on board - 2.5 today - Creatinine improving - Likely at new baseline - Mcfarland in place - Monitor urine output - Repeat BMP in am ( 2.05/ml/kg/hr ) - Replace K, mag Chronic decubitus ulcer/ B/L Calcaneal wounds - Continue pressure off-loading - Not acutely infected - Continue wound care Peripheral vascular disease - No anti-platelets due to GI bleed - Will d/w interventional cardiology - Possible plan for peripheral angiogram - Does follow with vascular surgery( CTS) outpatient GI ppx - PPI Attestations Medical Necessity Statement*: Brayden require further hospital stay pending completion of cardiac work up. Time Spent in Patient Care: Greater than 35 minutes (>than 50% of time spent in counselling and/or direct pt care on unit). Coding Level of Care Code Acute Paper Rewinder for Chg Fwd Diagnoses GERARD (acute kidney injury) N17.9 Acute exacerbation of CHF (congestive heart failure) I50.33 Heart failure type: diastolic Hospital-acquired pneumonia J18.9; Y95 Recent non-ST elevation myocardial infarction Peripheral arterial disease I73.9 Bilateral pleural effusion J90
--- NOTE | 2020-08-19 14:28 | PM.PN ---
Subjective Subjective: Interval history: Ms. Lima feels well today, denies any chest pain, nausea or vomiting, palpitations, dizziness etc. Just completed her stress test which demonstrates reduction in ejection fraction to 41%, however no reversible changes were noted. Mild extremity edema. Vitals/I&O/Wt Last Vital Signs Temp 98.0 F 08/19/20 10:00 Pulse 60 08/19/20 12:00 Resp 14 08/19/20 12:00 BP 152/54 08/19/20 12:00 Pulse Ox 99 08/19/20 12:00 08/18/20 08/19/20 08/19/20 22:59 06:59 14:59 Intake Total 390 / 390 240 / 240 Output Total 1550 / 1550 750 / 2300 675 / 675 Balance -1160 / -1160 -750 / -1910 -435 / -435 Physical Exam Narrative: EXAM NARRATIVE: Constitutional: Awake, comfortable HEENT: Wet mucosa, no jvp, non icteric Lungs: Bilaterally clear without discernible wheeze, rales in all lung zones CVS: S1 S2, no murmurs Abdo: Soft, BS ok Ext 4: Minimal edema, peripheral perfusion with no cyanosis Neurological: Grossly non-focal Urinary Catheter Management^: Mcfarland: Cath Placed During This Visit: yes Reason for Continuing Indwelling Catheter: Accurate Measurement of Urinary Output in Critically Ill Patients Urinary Catheter Date of Insertion: 08/09/20 Urinary Catheter Time of Insertion: 22:15 Data : 08/18/20 10:45 08/19/20 04:28 Micro: Microbiology 08/15/20 10:00 Gram Stain - Final Pleural Fluid Anaerobic Culture - Preliminary Body Fluid Culture - Final 08/12/20 18:20 Gram Stain - Final Pleural Fluid Anaerobic Culture - Preliminary Body Fluid Culture - Final A&P Additional A&P Information 1. GERARD Creatinine continues to downtrend in the setting of effective diuresis. This is consistent with cardiorenal dynamics. No change to diuretic therapy today from my perspective. A.m. labs Avoid usual nephrotoxic agents Strict ins and outs. 2. Congestive heart failure with recent non-STEMI. stress test which demonstrates reduction in ejection fraction to 41%, however no reversible changes were noted. Management per cardiology. 3. Chemistry. Bicarbonate levels have jumped up, will stop sodium bicarbonate therapy. Potassium replacement requested, 40mEqs. 4. Hypertension. Blood pressure slightly elevated at 152/54. Will defer management to cardiology as they are actively treating this. Jorge A Willams MD Nephrology [phone] Patient seen and examined via telemedicine, with the assistance of the bedside RN > 25 min spent in evaluation and mgmt of patient Attestations Medical Necessity Statement*: GERARD eval Coding Level of Care Code Acute Senior Marketing Associate for Janice Long
[2020-08-19] MEDS: potassium chloride ER 20 mEq Tablet PO (15:05)
--- NOTE | 2020-08-19 17:19 | PC.NURSE ---
catheter removed at 1715
--- NOTE | 2020-08-19 18:18 | PC.NURSE ---
transfer Patent was transferred at 1815 by wheelchair to CSU. All of belongings were with patient. CSU nurse was at bedside.
--- NOTE | 2020-08-19 19:17 | PM.PN ---
Subjective Subjective: Interval history: Patient is sleepy she does not want to wake up Medications: Reviewed: Yes Medication Review Details: Current Medications Acetaminophen (Acetaminophen 325 Mg Tablet) 650 mg PO Q6H PRN PRN Reason: FEVER Last Admin: 08/11/20 15:34 Dose: 650 mg Documented by: Hydrocodone Bitart/Acetaminophen (Hydrocodone-Acetaminophen 5-325 Mg Tablet) 1 tab PO Q6H PRN PRN Reason: MODERATE PAIN Last Admin: 08/15/20 18:30 Dose: 1 tab Documented by: Albuterol/Ipratropium (Ipratropium-Albuterol 3 Ml Neb) 3 ml INHALATION Q6H.RESPIRATORY PRN PRN Reason: SHORTNESS OF BREATH Last Admin: 08/13/20 20:35 Dose: 3 ml Documented by: Atorvastatin Calcium (Atorvastatin 40 Mg Tablet) 80 mg PO BEDTIME [facility] Last Admin: 08/15/20 21:16 Dose: 80 mg Documented by: Carvedilol (Carvedilol 3.125 Mg Tablet) 3.125 mg PO BID [facility] Last Admin: 08/15/20 18:34 Dose: 3.125 mg Documented by: Furosemide (Furosemide 10 Mg/Ml Sdv 4ml) 40 mg IVP Q12H [facility] Last Admin: 08/15/20 21:16 Dose: 40 mg Documented by: Cefepime HCl 1,000 mg/ Sodium (Chloride) 50 mls @ 100 mls/hr IV Q24H [facility]; Protocol Last Admin: 08/15/20 06:00 Dose: 100 mls/hr Documented by: Dexmedetomidine HCl 400 mcg/ (Sodium Chloride) 104 mls @ 0 mls/hr IV .Q0M [facility]; Protocol Last Admin: 08/15/20 08:40 Dose: 0.1 mcg/kg/hr, 1.4 mls/hr Documented by: Linezolid (Zyvox Premix) 600 mg in 300 mls @ 300 mls/hr IV Q12H [facility] Last Admin: 08/15/20 19:53 Dose: 300 mls/hr Documented by: Lorazepam (Lorazepam 2 Mg/Ml Inj 1 Ml) 0.5 mg IVP Q4H PRN PRN Reason: ANXIETY Last Admin: 08/14/20 09:10 Dose: 0.5 mg Documented by: Morphine Sulfate (Morphine 4 Mg/Ml Sdv 1 Ml) 1 mg IVP Q2H PRN PRN Reason: SEVERE PAIN Last Admin: 08/15/20 15:13 Dose: 1 mg Documented by: Ondansetron HCl (Ondansetron 2 Mg/Ml Sdv 2 Ml) 4 mg IVP Q4H PRN PRN Reason: NAUSEA AND VOMITING Last Admin: 08/16/20 03:42 Dose: 4 mg Documented by: Pantoprazole Sodium (Pantoprazole Dr 40 Mg Tablet) 40 mg PO DAILY [facility] Last Admin: 08/15/20 19:53 Dose: 40 mg Documented by: Sodium Bicarbonate (Sodium Bicarbonate 650 Mg Tablet) 650 mg PO TID [facility] Last Admin: 08/15/20 21:16 Dose: 650 mg Documented by: Vitals/I&O/Wt Last Vital Signs Temp 98.0 F 08/19/20 14:00 Pulse 65 08/19/20 18:39 Resp 16 08/19/20 18:39 BP 151/57 08/19/20 18:39 Pulse Ox 95 08/19/20 18:39 08/19/20 08/19/20 08/19/20 06:59 14:59 22:59 Intake Total 240 / 240 52 / 292 Output Total 750 / 2300 875 / 875 150 / 1025 Balance -750 / -1910 -635 / -635 -98 / -733 Physical Exam Narrative: EXAM NARRATIVE: GENERAL: Patient is sleepy NECK: No jugular vein distension. HEENT: No cyanosis. No icterus. No pallor. HEART: Regular S1 and S2. No murmur, rub or gallop. LUNGS: Decreased breath sound bilaterally. ABDOMEN: Soft, nontender and nondistended. Positive bowel sounds. No guarding, rebound or tenderness. CENTRAL NERVOUS SYSTEM: Grossly nonfocal. EXTREMITIES: Lower extremities without edema bilaterally. Urinary Catheter Management^: Mcfarland: Cath Placed During This Visit: yes, but has since been removed by the nurse Reason for Continuing Indwelling Catheter: Accurate Measurement of Urinary Output in Critically Ill Patients Urinary Catheter Date of Insertion: 08/09/20 Urinary Catheter Time of Insertion: 22:15 Date Urinary Catheter Removed: 08/19/20 Time Urinary Catheter Discontinued: 17:15 Data : 08/18/20 10:45 08/19/20 04:28 Micro: Microbiology 08/15/20 10:00 Gram Stain - Final Pleural Fluid Anaerobic Culture - Preliminary Body Fluid Culture - Final 08/12/20 18:20 Gram Stain - Final Pleural Fluid Anaerobic Culture - Preliminary Body Fluid Culture - Final A&P Assessment and plan (1) Acute exacerbation of CHF (congestive heart failure): Well compensated. Continue current regimen Status: Acute Qualifiers: Heart failure type: diastolic Qualified Code(s): I50.33 - Acute on chronic diastolic (congestive) heart failure (2) Bilateral pleural effusion: Improved. Status: Acute (3) Recent non-ST elevation myocardial infarction: Continue to manage medically stress test did not show any ischemia. Old myocardial infarction was evident Status: Acute (4) Acute kidney injury superimposed on chronic kidney disease: As per nephrology Status: Acute (5) Peripheral arterial disease: Patient has no resting claudication at this point. We will continue the current management. Status: Acute (6) Essential hypertension: Stable. Continue current regimen Status: Inactive Additional A&P Information We may go ahead and schedule for a Lexiscan/sestamibi/sestamibi stress test tomorrow. Based on the results, further recommendations will be made Attestations Medical Necessity Statement*: Require continuation hospitalization for above defined care Coding Level of Care Code Established Pt Acute Grain Loader for Chg Fwd Patient Type Established History Expanded Problem Focused Exam Expanded Problem Focused Medical Decision Making Moderate Complexity Diagnoses Acute exacerbation of CHF (congestive heart failure) I50.33 Heart failure type: diastolic Bilateral pleural effusion J90 Recent non-ST elevation myocardial infarction Acute kidney injury superimposed on chronic kidney disease N17.9; N18.9 Peripheral arterial disease I73.9 Essential hypertension I10
[2020-08-19] MEDS: atorvastatin 40 mg Tablet 80 MG PO (20:26)
[2020-08-19] MEDS: ondansetron 4 MG Tablet PO (20:28)
--- NOTE | 2020-08-19 22:17 | PC.NURSE ---
Spoke with Dr. Christian regarding this patient's complaints of leg cramping new orders received see
[2020-08-20] VITALS (13 sets, daily range): BP systolic 139–171; BP diastolic 61–69; PULSE 66–90; RESP 15–24; TEMP 36.6–36.9; O2SAT 88–98
--- NOTE | 2020-08-20 05:04 | PC.NURSE ---
Spoke with Dr. Christian regarding this patients morning lab results. Particularly the potassium of 3.2 and the magnesium of 1.6. My only concern was the patient has lasix scheduled at 0600 with no potassium supplementation. Awaiting orders at this time. See MAR for any new orders.
--- NOTE | 2020-08-20 05:07 | PC.NURSE ---
Disregard my previous nursing note regarding this patient's lab results the labs i was referring to were yesterday. Dr. Christian notified.
[2020-08-20 05:10] LABS: Eosinophils # 0.5 10^3/uL (0.0-0.8); Eosinophils % 5.2 %; Mean Corpuscular HGB Conc 32.5 g/dL (30.0-36.0); Nucleated Red Blood Cells % 0 %; Red Blood Count 3.67 10^6/uL (4.1-5.3)
[2020-08-20 05:32] LABS: Basophils # 0.1 10^3/uL (0.0-0.1); Basophils % 0.7 %; Hematocrit 31.4 % (37.0-47.0); Hemoglobin 10.2 g/dL (11.5-15.3); Lymphocytes # 1.6 10^3/uL (0.8-4.8); Lymphocytes % 15.5 %; Mean Corpuscular Hemoglobin 27.8 pg (28.0-34.0); Mean Corpuscular Volume 85.6 fL (81-99); Mean Platelet Volume 11.3 fL (7.4-10.4); Monocytes % 9.4 %; Neutrophils % 68.9 %; Platelet Count 255 10^3/cmm (130-400); Red Cell Distribution Width 13.6 % (12.1-15.1); White Blood Count 10.2 10^3/uL (4.0-10.0)
[2020-08-20 05:34] LABS: Alanine Aminotransferase 25 U/L (0-33); Albumin Level 2.7 g/dL (3.5-5.2); Alkaline Phosphatase 83 IU/L (35-105); Blood Urea Nitrogen 40 mg/dL (8-23); Calcium 8.7 mg/dL (8.5-10.5); Carbon Dioxide 29 mmol/L (22-29); Chloride 90 mmol/L (98-107); Glucose 113 mg/dL (65-115); Osmolality Calculated 285 mOsm/kg (285-295); Sodium 132 mmol/L (136-145); Total Bilirubin 0.4 mg/dL (0.15-1.2); Total Protein 6.7 g/dL (6.6-8.7)
[2020-08-20 05:54] LABS: Anion Gap 16.7 (5-19); Aspartate Amino Transferase 50 U/L (0-32); Potassium 3.7 mmol/L (3.5-5.1)
[2020-08-20] MEDS: FUROsemide 40 mg Tablet PO ×2 (06:36→17:30)
[2020-08-20] MEDS: amlodipine 10 mg Tablet PO (08:29)
[2020-08-20] MEDS: metOLazone 5 MG Tablet PO (08:29)
[2020-08-20] MEDS: docusate sodium 100 mg Capsule PO (08:30)
[2020-08-20] MEDS: pantoprazole DR 40 mg Tablet PO (08:30)
[2020-08-20] MEDS: gabapentin 100 mg Capsule PO ×2 (08:30→17:30)
[2020-08-20] MEDS: carvedilol 3.125 mg Tablet PO ×2 (08:30→17:31)
[2020-08-20] MEDS: ipratropium-albuterol 3 mL Neb INHALATION ×2 (09:26→15:57)
--- NOTE | 2020-08-20 11:45 | PM.PN ---
Subjective Subjective: Interval history: Stable. Denies any complaint. Medications: Reviewed: Yes Medication Review Details: Current Medications Acetaminophen (Acetaminophen 325 Mg Tablet) 650 mg PO Q6H PRN PRN Reason: FEVER Last Admin: 08/11/20 15:34 Dose: 650 mg Documented by: Hydrocodone Bitart/Acetaminophen (Hydrocodone-Acetaminophen 5-325 Mg Tablet) 1 tab PO Q6H PRN PRN Reason: MODERATE PAIN Last Admin: 08/15/20 18:30 Dose: 1 tab Documented by: Albuterol/Ipratropium (Ipratropium-Albuterol 3 Ml Neb) 3 ml INHALATION Q6H.RESPIRATORY PRN PRN Reason: SHORTNESS OF BREATH Last Admin: 08/13/20 20:35 Dose: 3 ml Documented by: Atorvastatin Calcium (Atorvastatin 40 Mg Tablet) 80 mg PO BEDTIME KIMBERLY Last Admin: 08/15/20 21:16 Dose: 80 mg Documented by: Carvedilol (Carvedilol 3.125 Mg Tablet) 3.125 mg PO BID KIMBER[facility] Last Admin: 08/15/20 18:34 Dose: 3.125 mg Documented by: Furosemide (Furosemide 10 Mg/Ml Sdv 4ml) 40 mg IVP Q12H [facility] Last Admin: 08/15/20 21:16 Dose: 40 mg Documented by: Cefepime HCl 1,000 mg/ Sodium (Chloride) 50 mls @ 100 mls/hr IV Q24H [facility]; Protocol Last Admin: 08/15/20 06:00 Dose: 100 mls/hr Documented by: Dexmedetomidine HCl 400 mcg/ (Sodium Chloride) 104 mls @ 0 mls/hr IV .Q0M [facility]; Protocol Last Admin: 08/15/20 08:40 Dose: 0.1 mcg/kg/hr, 1.4 mls/hr Documented by: Linezolid (Zyvox Premix) 600 mg in 300 mls @ 300 mls/hr IV Q12H [facility] Last Admin: 08/15/20 19:53 Dose: 300 mls/hr Documented by: Lorazepam (Lorazepam 2 Mg/Ml Inj 1 Ml) 0.5 mg IVP Q4H PRN PRN Reason: ANXIETY Last Admin: 08/14/20 09:10 Dose: 0.5 mg Documented by: Morphine Sulfate (Morphine 4 Mg/Ml Sdv 1 Ml) 1 mg IVP Q2H PRN PRN Reason: SEVERE PAIN Last Admin: 08/15/20 15:13 Dose: 1 mg Documented by: Ondansetron HCl (Ondansetron 2 Mg/Ml Sdv 2 Ml) 4 mg IVP Q4H PRN PRN Reason: NAUSEA AND VOMITING Last Admin: 08/16/20 03:42 Dose: 4 mg Documented by: Pantoprazole Sodium (Pantoprazole Dr 40 Mg Tablet) 40 mg PO DAILY [facility] Last Admin: 08/15/20 19:53 Dose: 40 mg Documented by: Sodium Bicarbonate (Sodium Bicarbonate 650 Mg Tablet) 650 mg PO TID [facility] Last Admin: 08/15/20 21:16 Dose: 650 mg Documented by: Vitals/I&O/Wt Last Vital Signs Temp 98.3 F 08/20/20 08:10 Pulse 73 08/20/20 09:27 Resp 16 08/20/20 09:27 BP 161/61 08/20/20 08:10 Pulse Ox 96 08/20/20 09:27 08/19/20 08/20/20 08/20/20 22:59 06:59 14:59 Intake Total 392 / 632 0 / 632 Output Total 750 / 1625 / 5 Balance -358 / -993 -400 / -1393 Weight last 48 hrs Weight 134 lb Physical Exam Narrative: EXAM NARRATIVE: GENERAL: Patient is alert, awake and oriented x3. NECK: No jugular vein distension. HEENT: No cyanosis. No icterus. No pallor. HEART: Regular S1 and S2. No murmur, rub or gallop. LUNGS: Clear to auscultate bilaterally. ABDOMEN: Soft, nontender and nondistended. Positive bowel sounds. No guarding, rebound or tenderness. CENTRAL NERVOUS SYSTEM: Grossly nonfocal. EXTREMITIES: Lower extremities without edema bilaterally. Urinary Catheter Management^: Mcfarland: Cath Placed During This Visit: yes, but has since been removed by the nurse Reason for Continuing Indwelling Catheter: Other Urinary Catheter Date of Insertion: 08/09/20 Urinary Catheter Time of Insertion: 22:15 Date Urinary Catheter Removed: 08/19/20 Time Urinary Catheter Discontinued: 17:15 Data : 08/20/20 03:49 08/20/20 03:49 Micro: Microbiology 08/15/20 10:00 Gram Stain - Final Pleural Fluid Anaerobic Culture - Preliminary Body Fluid Culture - Final 08/12/20 18:20 Gram Stain - Final Pleural Fluid Anaerobic Culture - Preliminary Body Fluid Culture - Final A&P Assessment and plan (1) Acute exacerbation of CHF (congestive heart failure): Well compensated we will continue current regimen Status: Acute Qualifiers: Heart failure type: diastolic Qualified Code(s): I50.33 - Acute on chronic diastolic (congestive) heart failure (2) Bilateral pleural effusion: Improved. Status: Acute (3) Recent non-ST elevation myocardial infarction: We will continue medical management since patient has recent history of GI bleed and underlying renal failure which can further be complicated by proceeding with invasive strategy. I have discussed with the patient and she agrees with it. Status: Acute (4) Acute kidney injury superimposed on chronic kidney disease: Steadily improving. I will stop valsartan and switch to hydralazine. We will stop metolazone and switch to 40 mg twice daily p.o. Lasix with 20 mEq of potassium Status: Acute (5) Peripheral arterial disease: Patient does not have critical limb ischemia she has lifestyle limiting claudication at this point we will treat her medically since invasive strategy can lead to renal failure and worsening of bleeding problems. Status: Acute (6) Essential hypertension: Continue to optimize medicine hydralazine has been started. Patient has been advised to keep log of blood pressure pulse and send it to us after 10 days. We will follow her up in the clinic. Status: Inactive Additional A&P Information We may go ahead and schedule for a Lexiscan/sestamibi/sestamibi stress test tomorrow. Based on the results, further recommendations will be made Attestations Medical Necessity Statement*: Patient can be discharged home with home health or to assisted nursing facility Coding Level of Care Code Established Pt Acute Basketball Scout for Chg Fwd Patient Type Established History Expanded Problem Focused Exam Expanded Problem Focused Medical Decision Making Moderate Complexity Diagnoses Acute exacerbation of CHF (congestive heart failure) I50.33 Heart failure type: diastolic Bilateral pleural effusion J90 Recent non-ST elevation myocardial infarction Acute kidney injury superimposed on chronic kidney disease N17.9; N18.9 Peripheral arterial disease I73.9 Essential hypertension I10
--- NOTE | 2020-08-20 14:12 | P.PN_ITS ---
Subjective Subjective: Interval history: Ms. Lima feels well today with no new issues, sleeping on my interview. Mild extremity edema. Vitals/I&O/Wt Last Vital Signs Temp 98.4 F 08/20/20 12:18 Pulse 69 08/20/20 12:18 Resp 16 08/20/20 12:18 BP 139/66 08/20/20 12:18 Pulse Ox 97 08/20/20 12:18 08/19/20 08/20/20 08/20/20 22:59 06:59 14:59 Intake Total 392 / 632 0 / 632 Output Total 750 / 1625 / 2024 Balance -358 / -993 -400 / -1393 Weight last 48 hrs Weight 60.781 kg Physical Exam Narrative: EXAM NARRATIVE: Constitutional: Sleepy but comfortable HEENT: Wet mucosa, no jvp, non icteric Lungs: Bilaterally clear without discernible wheeze, rales in all lung zones CVS: S1 S2, no murmurs Abdo: Soft, BS ok Ext 4: Minimal edema, peripheral perfusion with no cyanosis Neurological: Grossly non-focal Urinary Catheter Management^: Mcfarland: Cath Placed During This Visit: yes, but has since been removed by the nurse Reason for Continuing Indwelling Catheter: Other Urinary Catheter Date of Insertion: 08/09/20 Urinary Catheter Time of Insertion: 22:15 Date Urinary Catheter Removed: 08/19/20 Time Urinary Catheter Discontinued: 17:15 Data : 08/20/20 03:49 08/20/20 03:49 Micro: Microbiology 08/15/20 10:00 Gram Stain - Final Pleural Fluid Anaerobic Culture - Preliminary Body Fluid Culture - Final 08/12/20 18:20 Gram Stain - Final Pleural Fluid Anaerobic Culture - Preliminary Body Fluid Culture - Final A&P Additional A&P Information 1. GERARD Creatinine continues to downtrend in the setting of effective diuresis. This is consistent with cardiorenal dynamics. No change to diuretic therapy today from my perspective. A.m. labs Avoid usual nephrotoxic agents Strict ins and outs. 2. Congestive heart failure with recent non-STEMI. stress test which demonstrates reduction in ejection fraction to 41%, however no reversible changes were noted. Management per cardiology. 3. Chemistry. Sodium levels a little low, likely thiazide related, I have asked her to decrease water intake. Levels will need to be monitored as outpatient 4. Hypertension. Blood pressure looks good Jorge A Willams MD Nephrology [phone] Patient seen and examined via telemedicine, with the assistance of the bedside RN > 25 min spent in evaluation and mgmt of patient Attestations Medical Necessity Statement*: eval for GERARD Coding Level of Care Code Acute Cloth Boil Off Machine Operator for Janice Long
--- NOTE | 2020-08-20 16:20 | P.DS_ITS ---
Discharge Providers Date of Admission: 08/10/20 05:34 Date of Discharge: August 20, 2020 Attending Provider at Admission: Jin Arreaga MD Attending Provider at Discharge: Dinesh Swartz Primary Care Provider: Crystal Olivia MD Diagnoses at Discharge Discharge Diagnosis (1) Acute exacerbation of CHF (congestive heart failure): Status: Acute Qualifiers: Heart failure type: diastolic Qualified Code(s): I50.33 - Acute on chronic diastolic (congestive) heart failure (2) Bilateral pleural effusion: Status: Acute (3) Recent non-ST elevation myocardial infarction: Status: Acute (4) Acute kidney injury superimposed on chronic kidney disease: Status: Acute (5) Peripheral arterial disease: Status: Acute (6) Essential hypertension: Status: Inactive Reason for Visit Reason for Visit: trouble breathing, swelling in extremities Hospital Course Hospital Course 75-year-old female with a past medical history significant for hypertension, hyperlipidemia, diabetes mellitus, chronic stage 3 kidney disease, moderate aortic stenosis, peripheral vascular disease, chronic non-healing right calcaneal wound, who was initially admitted to hospital from 08/04/20 to 08/05/20 with respiratory failure requiring mechanical ventilation, aspiration pneumonia, worsening renal failure, upper GI bleed s/p EGD showing gastrititis/duodenitis requiring multiple transfusions, NSTEMI who was readmitted on 08/09 with respiratory distress. Initial laboratory work up had shown a WBC of 15.1, hemoglobin of 10.7, hematocrit of 33.3 and a platelet count of 406. sodium 132, potassium 5.3, chloride 98, bicarb 19, BUN 33 and creatinine 2.6. At the time of discharge on 08/05 this was 1.9[place] [address]. Troponin T -> 306 -> 284.2 - > 300.6. Influenza A/B and covid ag was negative. Imaging studies showed moderate pleural effusion with adjacent basilar consolidation vs atelectasis. CT Chest was then performed on 08/11 which showed moderately large right and moderate left pleural effusion, subsegmental consolidative alveolar airspace disease bilaterally with air bronchograms, ground glass interstitial lung disease suspecious for focal edema and mediastinal/suspected hilar lymphadenopathy. Patient was intubated due to increase work of breathing and placed on mechanical ventilation. Initially started on zyvox 600 mg IV q12hr, Cefepime 1g iv q24hr and Heparin gtt. On 08/14 she was extubated to bipap which was later weaned to o2 via NC. Pulmonary assisted in the management. Right sided thorocentesis was performed on 08/12 where a 1100 cc straw colored transudative fluid was drained. On 08/15 left sided thoracentesis was performed where 600cc of transudative fluid was drained. Analysis confirmed transudative fluid. Patient was continued on antibiotics until 08/16. She was suspected to primary have respiratory failure due to fluid overload. Was eventually started on dieresis with lasix/metalaxone. Oxygen was weaned to 4L of o2 via NC. Respiratory status remained stable. Home o2 eval was performed at time of discharge. Patient did have orthopnea however and thus a hospital bed was recommended and prescribed at discharge to maintain over 30 degree elevation. Due to elevated troponin she was seen by cardiology. Initially started on heparin gtt however this was stopped due to recent upper GI bleed. She was continued on high dose statin with lipitor 80 mg po daily, coreg 3.125 mg PO BID. Planned to eventually need a stress test and possible cardiac cath. nuclear stress test was performed which showed moderate area of persistent decreased uptake in the mid and apical anterior, mid inferolateral and apical segments with no significant reversibility however did have elevated TID ratio at 1.4 suggesting possible endocardial ischemia. Due to risk of worsening renal function and no recurrance of chest pain she was managed medically. Renal function remained fairly stable. Initially increased to 3.6 however i mproved to 2.3. Noted to have good urine output on diuretics. These were also continued during hospitalization and at discharge. Patient was stable and wanting to discharge. Close outpatient follow up appointments with cardiology and pcp were made. Physical Exam Narrative: EXAM NARRATIVE: General exam no apparent distress, interactive, on via CO HEENT: Grossly unremarkable Cardiovascular regular rate and rhythm without murmur Lungs clear but with diminished breath sounds bilaterally, non-labored respiration Abdomen is soft, positive bowel sounds Extremities no cyanosis clubbing . right heel ulcer has dressing. No surrounding erythema or edema Urinary Catheter Management^: [place]far[place]: Cath Placed During This Visit: yes, but has since been removed by the nurse Reason for Continuing Indwelling Catheter: Other Urinary Catheter Date of Insertion: 08/09/20 Urinary Catheter Time of Insertion: 22:15 Date Urinary Catheter Removed: 08/19/20 Time Urinary Catheter Discontinued: 17:15 Discharge Data Data Completed and Pending: Completed Studies During Hospitalization Category Date Time Status CT chest wo con 7 1250 Routine Cat Scan 08/11/20 08:02 Completed Sestamibi Stress Test Request Routi ne Exams 08/17/20 18:08 Completed XR chest 1V aung ble [id number] Routine Exams 08/10/20 Completed XR chest 1V aung ble [id number] Routine Exams 08/11/20 07:00 Completed XR chest 1V aung ble [id number] Routine Exams 08/11/20 17:50 Completed XR chest 1V aung ble [id number] Routine Exams 08/12/20 18:25 Completed XR chest 1V aung ble [id number] Routine Exams 08/13/20 07:00 Completed XR chest 1V aung ble [id number] Routine Exams 08/14/20 09:03 Completed XR chest 1V aung ble [id number] Routine Exams 08/15/20 10:16 Completed XR chest 1V aung ble [id number] Stat Exams 08/09/20 20:52 Completed NM michelle perf SPECT r/s* [id number] Routin e Nuc Med 08/18/20 18:08 Completed Cytology [PTH] Ro utine Pth 08/12/20 18:25 [place] [id number] Routin e Ultrasound 08/11/20 07:53 Completed Pending at discharge Category Date Time Status Anaerobic Culture Routine Lab 08/15/20 10:00 Results Body Fluid Cultur e & GS Routine Lab 08/15/20 10:00 Results Miscellaneous Binta t Routine Lab 08/12/20 15:30 Received Mycobacteria, Cul ture w/Fluor Routi ne Lab 08/12/20 18:20 Results Cytology [PTH] Ro utine Pth 08/15/20 10:13 Received Labs from last 24 hours 08/20/20 08/20/20 03:49 03:49 WBC 10.2 H RBC 3.67 L Hgb 10.2 L Hct 31.4 L MCV 85.6 MCH 27.8 L MCHC 32.5 RDW 13.6 Plt Count 255 MPV 11.3 H Neut % (Auto) 68.9 Lymph % (Auto) 15.5 [place] % (Auto) 9.4 Eos % (Auto) 5.2 Baso % (Auto) 0.7 Neut # (Auto) 7.00 Lymph # (Auto) 1.6 [place] # (Auto) 1.0 H Eos # (Auto) 0.5 Baso # (Auto) 0.1 Nucleated RBC % (a uto) 0 Nucleated RBCs # 0.0 Sodium 132 L Potassium 3.7 Chloride 90 L Carbon Dioxide 29 Anion Gap 16.7 BUN 40 H Creatinine 2.3 H GFR Calculation Not Reportable Glucose 113 Calculated Osmolal ity 285 Calcium 8.7 Magnesium 2.0 Total Bilirubin 0.4 AST 50 H ALT 25 Alkaline Phosphata se 83 Total Protein 6.7 Albumin 2.7 L Globulin 4.0 Vitals: Last Vital Signs Temp 98.4 F 08/20/20 12:18 Pulse 81 08/20/20 16:06 Resp 15 08/20/20 16:04 BP 139/66 08/20/20 12:18 Pulse Ox 88 L 08/20/20 16:07 Discharge Plan Discharge Patient Disposition: Home Condition: Stable Prescriptions: New furosemide 40 mg Tablet 40 mg PO BID@ Qty: 30 RF: 3 pantoprazole 40 mg Tablet,Delayed Release (Dr/Ec) 40 mg PO DAILY Qty: 30 RF: 4 hydralazine 50 mg tablet 50 mg PO TID Qty: 90 RF: 4 potassium chloride 20 mEq tablet extended release 20 meq PO DAILY Qty: 30 RF: 4 Continued gabapentin 100 mg capsule 200 mg PO BID RF: 0 amlodipine 10 mg tablet 10 mg PO DAILY Qty: 30 RF: 0 hydralazine 50 mg tablet 50 mg PO TID Qty: 90 RF: 0 pantoprazole [Protonix] 40 mg tablet,delayed release (DR/EC) 40 mg PO DAILY Qty: 30 RF: 3 atorvastatin 10 mg Tablet 10 mg PO QPM RF: 0 aspirin 81 mg Tablet,Delayed Release (Dr/Ec) See Rx Instructions .ROUTE .COMPLEX RF: 0 Changed Coreg 3.125 mg tablet 6.22 mg PO BID Qty: 60 RF: 3 Discontinued valsartan 160 mg tablet 160 mg PO DAILY RF: 0 Hold Instructions: Resume on 08/12/20. Discharge Orders: Discharge Order (Routine); Ordered 08/20/20 Ordered By: Dinesh Swartz Other Ambulatory Orders: DME: Hospital Bed (Order) Location: None Selected Ordered By: Dinesh Swartz DME: Oxygen (Order) Location: None Selected Ordered By: Dinesh Swartz Referrals: Crystal Olivia MD [Primary Care Provider] - 4-7 days (Please follow up with Dr. Olivia on Monday, August 26 at 10:40 am. If you have any conflicts with this appointment, please call to reschedule. Thank you. ) Discharge Diet: Cardiac and Diabetic Discharge Activity: Increase activity as tolerated Patient Instructions: Furosemide (By mouth), Potassium Chloride (By mouth), Hydralazine (By mouth), Pantoprazole (By mouth), Myocardial Infarction (DC), Peripheral Vascular Disorders (DC) Activity Restrictions/Additional Instructions: Return to hospital for worsening respiratory distress, chest pain or fevers. Discharge Attestations Time Spent in Discharge Care*: greater than 30 min Specific Discharge Activities: educating patient, discussing with pcp/other providers, discussing with residential case manager/social workers/dc planners, documenting/other paperwork and evaluating patient/reviewing data Status at Discharge: Cognitive status at discharge: cognitively intact , Behavioral status at discharge: cooperative , Functional status at discharge: other assisted ambulation Overall status at discharge: patient is progressing back to baseline Quality Metrics Clinical Quality Measures During this hospital stay, did patient experience: None Coding Level of Care Code Acute Finishing Manager for [place] Fwd Diagnoses Acute exacerbation of CHF (congestive heart failure) I50.33 Heart failure type: diastolic Bilateral pleural effusion J90 Recent non-ST elevation myocardial infarction Acute kidney injury superimposed on chronic kidney disease N17.9; N18.9 Peripheral arterial disease I73.9 Essential hypertension I10
--- NOTE | 2020-08-20 16:40 | PC.NURSE ---
Discharge instructions given per the physician's orders. Patient and granddaughter verbalized understanding of teaching and did not have any further questions. Medications delivered to bedside. IV has been removed. Patient assisted with dressing. Waiting for home O2 to be delivered. No further needs identified at this time. Nurse to continue to monitor.
[2020-08-20] MEDS: acetaminophen 325 mg Tablet 650 MG PO (17:31)
[2020-08-21 13:59] LABS: Miscellaneous Test See Scanned Lab Rpt
== END 2020-08-20 18:15 | disposition home or self-care (01) | DRG 871 ==
LOC: ER 08-10 01:48 → ER IP 08-10 07:28 → ICU 08-10 16:50 → CSU 08-19 18:09
PROVIDERS: Internal Medicine; Internal Medicine Cardiovascular Disease; Internal Medicine Nephrology; Internal Medicine Pulmonary Disease; Admitting Provider Internal Medicine; Emergency Provider Family Medicine; PCP Family Medicine; Visit Provider Hospitalist
DX: A41.9 Sepsis, unspecified organism (principal); J96.02 Acute respiratory failure with hypercapnia; J96.01 Acute respiratory failure with hypoxia; I50.33 Acute on chronic diastolic (congestive) heart failure; N17.0 Acute kidney failure with tubular necrosis; I21.A1 Myocardial infarction type 2; J69.0 Pneumonitis due to inhalation of food and vomit; I13.0 Hypertensive heart and chronic kidney disease with heart failure and stage 1 through stage 4 chronic kidney disease, or unspecified chronic kidney disease; E87.4 Mixed disorder of acid-base balance; E87.1 Hypo-osmolality and hyponatremia; J90 Pleural effusion, not elsewhere classified; I25.2 Old myocardial infarction; L89.622 Pressure ulcer of left heel, stage 2; L89.610 Pressure ulcer of right heel, unstageable; L89.152 Pressure ulcer of sacral region, stage 2; I25.10 Atherosclerotic heart disease of native coronary artery without angina pectoris; I35.0 Nonrheumatic aortic (valve) stenosis; N18.30 Chronic kidney disease, stage 3 unspecified; E11.22 Type 2 diabetes mellitus with diabetic chronic kidney disease; D50.0 Iron deficiency anemia secondary to blood loss (chronic); E78.5 Hyperlipidemia, unspecified; E11.51 Type 2 diabetes mellitus with diabetic peripheral angiopathy without gangrene; Z87.01 Personal history of pneumonia (recurrent); Z79.82 Long term (current) use of aspirin
CPT/HCPCS: 12345; 36415; 36416; 36600; 51702; 71045; 71250; 78452; 80048; 80051; 80053; 80202; 80500; 81001; 82042; 82150; 82330; 82436; 82465; 82550; 82803; 82805; 82945; 82962; 83516; 83540; 83550; 83605; 83615; 83690; 83735; 83880; 83986; 84075; 84100; 84133; 84145; 84157; 84300; 84315; 84478; 84484; 84560; 85025; 85730; 86403; 87015; 87040; 87070; 87075; 87116; 87205; 87206; 87426; 87449; 87641; 87801; 87804; 88112; 88184; 88185; 88305; 89050; 90935; 92523; 92610; 93005; 93017; 93970; 94002; 94003; 94640; 94660; 94799; 97110; 97163; 97530; 97760; 99283; 99291; A9500; C9113; J0330; J0692; J1170; J1644; J1940; J2020; J2060; J2270; J2405; J2704; J2785; J3475; J3490; J7030; L3260; Q0162; Q3014

== ENCOUNTER 2020-08-26 13:26 | Emergency (ER) | payer MEDICARE, SELFPAY ==
[2020-08-26 13:56] VITALS: BP 125/60; PULSE 64; RESP 14; TEMP 36.7; O2SAT 90; BMI 43.2
--- NOTE | 2020-08-26 14:04 | XR_ITS ---
WS: [id number] Portable AP upright chest, 08/26/2020 Clinical Data: sob Comparison: Portable chest, 08/15/2020 Findings: Bilateral pleural effusions have developed with more on the right than left. There are bila teral pulmonary opacities which have diminished slightly. The heart is enlarged. The aortic arch and descending aorta show calcification and tortuosity. No pneumothorax is seen. XR/XR chest 1V portable [id number] Impression: 1. Increase in effusions compared to previous x-ray. 2. Slight decrease in bilateral parenchymal opacities. 3. Atherosclerosis.
--- NOTE | 2020-08-26 14:08 | W.ED.SOB ---
HPI - SOB/Dyspnea General: Chief Complaint: Shortness of Breath/Dyspnea Stated Complaint: PCP OFFICE STATED NEEDS CHEST XRAY/CHECKED OUT Time Seen by Provider: 08/26/20 14:04 History of Present Illness: HPI Narrative: Patient is a 75-year-old female comes to the ED with shortness of breath. Patient wears 2 L of oxygen at home at all times. She had ran out of her oxygen and started developing shortness of breath so she was sent here to the ED for evaluation. When she arrived to the ED they put her on her 2 L of oxygen and her symptoms improved. She says that she is having no shortness of breath now, chest pain or any feeling of respiratory distress now that she has her oxygen. Associated symptoms: Deny abdominal pain, chest pain, fever(s), nausea, orthopnea, palpitations or vomiting Review of Systems Const: Denies: fever(s), chills or fatigue Eyes: Denies: change in vision or eye discomfort ENMT: Denies: throat pain, odynophagia, nasal discharge or nasal congestion Card: Denies: chest pain, palpitations, edema, swelling of feet/ankles, dyspnea on exertion or orthopnea Resp: Reports: dyspnea; Denies: productive cough or non-productive cough GI: Denies: abdominal pain, nausea, vomiting, diarrhea, constipation or hematochezia : Denies: flank pain, dysuria or hematuria Musc: Denies: neck pain, back pain or extremity swelling Skin/Breast: Denies: rash or new lesions Neuro: Denies: headache(s), numbness in extremities or weakness in extremities PFS ED PFSH: Medical History Acute respiratory failure Anemia CKD (chronic kidney disease) stage 3, GFR 30-59 ml/min Critical lower limb ischemia Diabetes mellitus Diabetic ulcer of heel Essential hypertension Hematemesis Hyperlipidemia NSTEMI (non-ST elevated myocardial infarction) Peripheral arterial disease Peripheral vascular disease Pneumonia Pulmonary edema Recent non-ST elevation myocardial infarction Surgical History Surgical history unknown Hysterectomy documented previously, but patient still appears to have her uterus on her CAT scan Family History Other Cancer Rheumatoid arthritis Social History Smoking and tobacco status: never smoked Alcohol intake: never Physical Exam Const: COMMON NORMALS: no acute distress, patient oriented x3, healthy appearing and alert GENERAL APPEARANCE: cooperative and comfortable HENMT: COMMON NORMALS: normocephalic HEAD & SCALP: normocephalic MOUTH: Normal oral and palatal mucosa present THROAT: posterior oropharynx normal and uvula midline Neck/C-Spine: COMMON NORMALS: supple GENERAL: Yes normal visual inspection Resp: COMMON NORMALS: normal respiratory effort, No retractions, No use of accessory muscles and clear to auscultation bilaterally AUSCULTATION: clear to auscultation bilaterally and diminished lung sounds on the right in the lower lung porter Cardio: COMMON NORMALS: regular rate, regular rhythm, S1 normal heart sound present, S2 normal heart sound present, No gallops present (Cardio), No clicks present (Cardio), No murmurs present (Cardio) and Peripheral pulses 2+ throughout RATE: regular rate RHYTHM: regular rhythm HEART SOUNDS: S1 normal heart sound present and S2 normal heart sound present PERIPHERAL PULSES: Peripheral pulses 2+ throughout GI: COMMON NORMALS: Normal to inspection, nondistended, normoactive bowel sounds present, Soft to palpation, non-tender and no masses PALPATION: Yes Soft to palpation : COMMON NORMALS: Yes no CVA tenderness BLADDER/KIDNEY EXAM: Yes no CVA tenderness Back/Pelvis: COMMON NORMALS: no CVA tenderness Extremity: COMMON NORMALS: normal to inspection Neuro: COMMON NORMALS: patient oriented x3 and moves all extremities SENSORIUM/ORIENTATION: Yes alert Skin: GENERAL SKIN EXAM: dry skin Course ED course: Home health came here to the ED to get patient set up With a new oxygen tank. She also has an O2 concentrator at home. Vital Signs: Vital signs: Vital Signs Temperature 98.1 F 08/26/20 13:56 Pulse Rate 66 08/26/20 15:15 Respiratory Rate 12 08/26/20 15:15 Blood Pressure 131/61 08/26/20 15:15 Pulse Oximetry 98 08/26/20 15:15 MDM - SOB/Dyspnea MDM Narrative: Medical decision making narrative: Patient is a 75-year-old female who comes to the ED with some shortness of breath because her oxygen tank was empty. While here in the ED home health came and got patient set up on a new take of oxygen. Upon examination patient appeared in no respiratory distress and lungs were clear to auscultation with some diminished lung sounds in the right base of lung. She says she feels completely and is on 2 L of oxygen which is her normal level and is breathing comfortably. She has no current complaints. Her chest x-ray did show some increasing effusions in the base of the right left lower lung. Patient's vitals 131/61, 66 pulse, 12 respirations, temp 98.1, O2 sat 98% on 2 L. Patient was stable and did light of the pleural effusion seen on chest x-ray he is having no trouble breathing, chest pain states she feels normal. I talked with Dr. Brody the ED doc care he took a look at the chest x-ray and thought of patient stable and feels fine she can be discharged home. Patient will be discharged and told to follow-up with PCP in 5 days to reevaluate. I told patient she should come back to the ED if she has any trouble breathing, chest pain or has to increase her oxygen level. Patient understood agree with plan. Imaging Data^: CXR: Attestation: I personally reviewed and interpreted this imaging study as follows: Radiologist's impression: [address] [address] XRay Report Signed Patient: Elizabeth Lima Unit #: [id number] : 1945 Age/Sex: 75 / F ADM Date: 08/26/20 Loc: ER Room/Bed: Attending Dr: Ordering Provider/Ordering MD: Jorge A Bell Date of Service: 08/26/20 Procedure(s): XR chest 1V portable [id number] Accession Number(s): [id number] Report Number: [id number] WS: [id number] Portable AP upright chest, 08/26/2020 Clinical Data: sob Comparison: Portable chest, 08/15/2020 Findings: Bilateral pleural effusions have developed with more on the right than left. There are bilateral pulmonary opacities which have diminished slightly. The heart is enlarged. The aortic arch and descending aorta show calcification and tortuosity. No pneumothorax is seen. XR/XR chest 1V portable [id number] Impression: 1. Increase in effusions compared to previous x-ray. 2. Slight decrease in bilateral parenchymal opacities. 3. Atherosclerosis. Dictated By: Marita Calloway MD Signed By: Marita Calloway MD Signed Date/Time: 08/26/201422 DD/ 20 Discharge Plan Discharge Patient Disposition: Home Clinical Impression: Breath shortness Condition: Stable Prescriptions: No Action citalopram 10 mg tablet 10 mg PO .HS Qty: 90 RF: 3 gabapentin 100 mg capsule 200 mg PO BID RF: 0 amlodipine 10 mg tablet 10 mg PO DAILY Qty: 30 RF: 0 atorvastatin 10 mg Tablet 10 mg PO QPM RF: 0 aspirin 81 mg Tablet,Delayed Release (Dr/Ec) See Rx Instructions .ROUTE .COMPLEX RF: 0 furosemide 40 mg Tablet 40 mg PO BID@06,18 Qty: 30 RF: 3 pantoprazole 40 mg Tablet,Delayed Release (Dr/Ec) 40 mg PO DAILY Qty: 30 RF: 4 hydralazine 50 mg tablet 50 mg PO TID Qty: 90 RF: 4 potassium chloride 20 mEq tablet extended release 20 meq PO DAILY Qty: 30 RF: 4 Coreg 3.125 mg tablet 6.22 mg PO BID Qty: 60 RF: 3 Discharge Orders: Discharge ED (Routine); Ordered 08/26/20 Ordered By: Jorge A Bell Referrals: Crystal Olivia MD [Primary Care Provider] - Discharge Diet: Regular Discharge Activity: Increase activity as tolerated Patient Instructions: Using Oxygen at Home (ED) Activity Restrictions/Additional Instructions: Follow-up with medical provider as directed at next scheduled appointment. Call PCP and let them know about your pleural effusion that has slightly progressed, but urine stable condition and not having any symptoms. If you start developing shortness of breath and needing to turn oxygen levels up or getting chest pain return to the ED immediately. Take medications as prescribed. Return to the ER or your medical provider if condition worsens. Please read and understand discharge instructions. If any questions, please ask. Coding Level of Care Code ED Hydrogen Treater for Janice Fwd Exam Comprehensive
[2020-08-26 15:15] VITALS: BP 131/61; PULSE 66; RESP 12; O2SAT 98
== END 2020-08-26 15:15 | disposition home or self-care (01) ==
PROVIDERS: Emergency Provider Physician Assistant; PCP Family Medicine
DX: R06.02 Shortness of breath (principal); Z79.82 Long term (current) use of aspirin; E11.22 Type 2 diabetes mellitus with diabetic chronic kidney disease; I12.9 Hypertensive chronic kidney disease with stage 1 through stage 4 chronic kidney disease, or unspecified chronic kidney disease; N18.30 Chronic kidney disease, stage 3 unspecified; Z99.81 Dependence on supplemental oxygen; E78.5 Hyperlipidemia, unspecified; I25.2 Old myocardial infarction
CPT/HCPCS: 12345; 71045; 99281; 99282

== ENCOUNTER 2020-08-30 21:28 | Inpatient (IN) | payer MEDICARE, SELFPAY ==
[2020-08-30 21:34] VITALS: BP 163/101; PULSE 80; RESP 38; TEMP 36.7; O2SAT 70; BMI 22.4
--- NOTE | 2020-08-30 21:40 | XR_ITS ---
WS: [id number] Exam: XR chest 1V portable [id number] Date/Time of Exam: 08/30/2020 9:50 PM Reason For Exam: dyspnea Comparison 08/26/2020. There is cardiac enlargement with pulmonary vascular congestion suggesting CHF. Increased right-sided pleural effusion noted. Improved left basal pleural effusion. No pneumothorax. Regional bony structu res are intact. XR/XR chest 1V portable [id number] IMPRESSION: 1. Cardiac enlargement with signs of congestive heart failure. Increasing right -sided pleural effusion since prior study. Left pleural effusion has improved.
--- NOTE | 2020-08-30 21:43 | ED_ITS ---
Documented by User: BRAXTON Castanon 08/30/20 23:05 HPI - SOB/Dyspnea General: Chief Complaint: Shortness of Breath/Dyspnea Stated Complaint: SOB/ 02 ran out Time Seen by Provider: 08/30/20 21:35 Source: patient Mode of arrival: ambulatory Limitations: no limitations History of Present Illness: HPI Narrative: Patient reports increased shortness of breath. Patient started to the emergency department due to the increasing shortness of breath. Review of the record noted that patient had been seen on the and had several effusions that were increasing from prior exams. Patient at that time seemed to improve with just additional oxygen. Patient came back today due to worsening symptoms of shortness of breath. On arrival to the ER patient was off oxygen and was on 70% after being placed on 2 L of per nasal cannula. Review of Systems General: Reports: 10 or more systems reviewed and unremarkable except in HPI and below Resp: Reports: dyspnea PFS ED PFSH: Medical History (Updated 08/30/20 @ 22:41 by BRAXTON Castanon) Acute respiratory failure Anemia CKD (chronic kidney disease) stage 3, GFR 30-59 ml/min Critical lower limb ischemia Diabetes mellitus Diabetic ulcer of heel Essential hypertension Hematemesis Hyperlipidemia NSTEMI (non-ST elevated myocardial infarction) Peripheral arterial disease Peripheral vascular disease Pneumonia Pulmonary edema Recent non-ST elevation myocardial infarction Surgical History Surgical history unknown Hysterectomy documented previously, but patient still appears to have her uterus on her CAT scan Family History Other Cancer Rheumatoid arthritis Social History Smoking and tobacco status: never smoked Alcohol intake: never Physical Exam Const: COMMON NORMALS: no acute distress and patient oriented x3 GENERAL APPEARANCE: cooperative HENMT: COMMON NORMALS: normocephalic, TM's normal bilaterally and Normal external nose present HEAD & SCALP: normal to inspection and normocephalic NOSE: Normal external nose present TYMPANIC MEMBRANE: TM's normal bilaterally MOUTH: Normal oral and palatal mucosa present THROAT: posterior oropharynx normal Eye: GENERAL EYE: appearance normal, both eyes and all related structures Neck/C-Spine: COMMON NORMALS: full ROM Lymph: LYMPHATIC: no lymphadenopathy noted Chest: COMMONS NORMALS: normal inspection of the chest Resp: COMMON NORMALS: normal respiratory effort EFFORT & INSPECTION: Yes able to speak in complete sentences AUSCULTATION: wheezes and diminished lung sounds Cardio: COMMON NORMALS: regular rate and regular rhythm RATE: regular rate RHYTHM: regular rhythm GI: COMMON NORMALS: non-tender Back/Pelvis: COMMON NORMALS: thoracic and lumbar spine normal to inspection Extremity: COMMON NORMALS: normal to inspection Neuro: COMMON NORMALS: patient oriented x3 and moves all extremities Psych: COMMON NORMALS: mental status grossly normal and cooperative Skin: COMMON NORMALS: no rashes or lesions noted GENERAL SKIN EXAM: no rashes or lesions noted Course ED course: 2199, reviewed case with Dr. Gonsalez who recommended switching the patient back to 6 L per nasal cannula from nonrebreather and reevaluate oxygen saturation. The patient maintains hypoxic situation she will need to have BiPAP. 2219, reviewed labs and chest x-ray with Dr. Gonsalez who agreed to plan for treatment for CHF. We also add blood cultures to rule out secondary pneumonia due to concern of elevation in patient's white blood cell count. 2239, discussed with Dr. Rai regarding patient's CHF. Reviewed chart with him. He recommended CT of the chest without contrast to rule out pneumonia. He also wanted patient to be on BiPAP. Vital Signs: Vital signs: Vital Signs Temperature 98.1 F 08/30/20 21:34 Pulse Rate 69 08/30/20 23:13 Respiratory Rate 20 H 08/30/20 23:13 Blood Pressure 133/81 08/30/20 22:42 Pulse Oximetry 93 08/30/20 23:13 MDM - SOB/Dyspnea MDM Narrative: Medical decision making narrative: Patient comes in today for complaints of increased shortness of breath. On exam patient had decreased lung sounds with wheezing throughout. Heart tones were distant. Skin is warm and dry. No obvious swelling was noted in the extremities. Patient did have some increase tightness she reported in her abdomen. Patient was saturating 70% on 2 L per nasal cannula. Differential diagnosis includes CHF, pneumonia, COVID-19, respiratory failure. Chest x-ray noted increasing effusion with pulmonary edema. Laboratory values show the increase in white count to 19,000, platelets of 523, sodium was 122, sugar was 213, potassium was 5.3. BNP was 22,000. Reviewed patient with Dr. Gonsalez and Dr. Rai who agreed to admission. Patient needs admission for cardiac monitoring, treatment with oxygen, repeat laboratory testing. Lab Data: Labs: Lab Results 08/30/20 08/30/20 08/30/20 Range/Units 21:45 21:45 21:45 WBC 19.9 H (4.0-10.0) 10^3/ uL RBC 3.33 L (4.1-5.3) 10^6/u L Hgb 9.4 L (11.5-15.3) g/dL Hct 29.1 L (37.0-47.0) % MCV 87.4 (81-99) fL MCH 28.2 (28.0-34.0) pg MCHC 32.3 (30.0-36.0) g/dL RDW 14.8 (12.1-15.1) % Plt Count 523 H (130-400) 10^3/c mm MPV 10.8 H (7.4-10.4) fL Neut % (Auto) 80.7 % Lymph % (Auto) 8.4 % Garfield % (Auto) 5.3 % Eos % (Auto) 3.9 % Baso % (Auto) 0.7 % Neut # (Auto) 16.06 H (1.8-7.7) 10^3/u L Lymph # (Auto) 1.7 (0.8-4.8) 10^3/u L Garfield # (Auto) 1.1 H (0.2-0.9) 10^3/u L Eos # (Auto) 0.8 (0.0-0.8) 10^3/u L Baso # (Auto) 0.1 (0.0-0.1) 10^3/u L Nucleated RBC % (a uto) 0 % Nucleated RBCs # 0.0 /100WBC PT 13.40 (12.1-14.9) SECO NDS INR 0.99 (0.8-1.2) D-Dimer 12.65 H (0-0.59) ug/mIFE U Specimen Type Sample Site ABG pH (7.35-7.45) ABG pCO2 (35-45) mmHg ABG pO2 (80.0-100.0) mmH g ABG HCO3 (22-26) mmol/L ABG Base Excess (-2.0-2.0) mmol/ L Jaren Test Hematocrit (37-47) % Hgb O2 Saturation (95-100) % Carboxyhemoglobin (0.4-20.1) %THgb Methemoglobin (0.4-1.5) % Total Hemoglobin (12-16) g/dL O2 Delivery Device O2 Liters/Min % Business Database Analyst ID Sodium 122 L (136-145) mmol/L Potassium 5.3 H (3.5-5.1) mmol/L Chloride 84 L (98-107) mmol/L Carbon Dioxide 24 (22-29) mmol/L Anion Gap 19.3 H (5-19) BUN 58 H (8-23) mg/dL Creatinine 2.1 H (0.5-0.9) mg/dL GFR Calculation Not Reportable Glucose 213 H (65-115) mg/dL Calculated Osmolal ity 277 L (285-295) mOsm/k g Lactic Acid (0.5-2.2) mmol/L Calcium 8.7 (8.5-10.5) mg/dL Magnesium 1.5 L (1.7-2.3) mg/dL Total Bilirubin 0.4 (0.15-1.2) mg/dL AST 79 H (0-32) U/L ALT 58 H (0-33) U/L Alkaline Phosphata se 119 H (35-105) IU/L Troponin T Gen 5 n g/L (0-10) ng/L NT-Pro-B Natriuret Pep 76297 H (0-450) pg/mL Total Protein 6.9 (6.6-8.7) g/dL Albumin 3.5 (3.5-5.2) g/dL Globulin 3.4 (1.3-4.6) g/dL Procalcitonin (0-0.5) ng/mL 08/30/20 08/30/20 08/30/20 Range/Units 21:45 21:45 21:45 WBC (4.0-10.0) 10^3/ uL RBC (4.1-5.3) 10^6/u L Hgb (11.5-15.3) g/dL Hct (37.0-47.0) % MCV (81-99) fL MCH (28.0-34.0) pg MCHC (30.0-36.0) g/dL RDW (12.1-15.1) % Plt Count (130-400) 10^3/c mm MPV (7.4-10.4) fL Neut % (Auto) % Lymph % (Auto) % Garfield % (Auto) % Eos % (Auto) % Baso % (Auto) % Neut # (Auto) (1.8-7.7) 10^3/u L Lymph # (Auto) (0.8-4.8) 10^3/u L Garfield # (Auto) (0.2-0.9) 10^3/u L Eos # (Auto) (0.0-0.8) 10^3/u L Baso # (Auto) (0.0-0.1) 10^3/u L Nucleated RBC % (a uto) % Nucleated RBCs # /100WBC PT (12.1-14.9) SECO NDS INR (0.8-1.2) D-Dimer (0-0.59) ug/mIFE U Specimen Type Sample Site ABG pH (7.35-7.45) ABG pCO2 (35-45) mmHg ABG pO2 (80.0-100.0) mmH g ABG HCO3 (22-26) mmol/L ABG Base Excess (-2.0-2.0) mmol/ L Jaren Test Hematocrit (37-47) % Hgb O2 Saturation (95-100) % Carboxyhemoglobin (0.4-20.1) %THgb Methemoglobin (0.4-1.5) % Total Hemoglobin (12-16) g/dL O2 Delivery Device O2 Liters/Min % Business Database Analyst ID Sodium (136-145) mmol/L Potassium (3.5-5.1) mmol/L Chloride (98-107) mmol/L Carbon Dioxide (22-29) mmol/L Anion Gap (5-19) BUN (8-23) mg/dL Creatinine (0.5-0.9) mg/dL GFR Calculation Glucose (65-115) mg/dL Calculated Osmolal ity (285-295) mOsm/k g Lactic Acid 1.6 (0.5-2.2) mmol/L Calcium (8.5-10.5) mg/dL Magnesium (1.7-2.3) mg/dL Total Bilirubin (0.15-1.2) mg/dL AST (0-32) U/L ALT (0-33) U/L Alkaline Phosphata se (35-105) IU/L Troponin T Gen 5 n g/L 40 H (0-10) ng/L NT-Pro-B Natriuret Pep (0-450) pg/mL Total Protein (6.6-8.7) g/dL Albumin (3.5-5.2) g/dL Globulin (1.3-4.6) g/dL Procalcitonin 0.27 (0-0.5) ng/mL 08/30/20 Range/Units 22:05 WBC (4.0-10.0) 10^3/ uL RBC (4.1-5.3) 10^6/u L Hgb (11.5-15.3) g/dL Hct (37.0-47.0) % MCV (81-99) fL MCH (28.0-34.0) pg MCHC (30.0-36.0) g/dL RDW (12.1-15.1) % Plt Count (130-400) 10^3/c mm MPV (7.4-10.4) fL Neut % (Auto) % Lymph % (Auto) % Garfield % (Auto) % Eos % (Auto) % Baso % (Auto) % Neut # (Auto) (1.8-7.7) 10^3/u L Lymph # (Auto) (0.8-4.8) 10^3/u L Garfield # (Auto) (0.2-0.9) 10^3/u L Eos # (Auto) (0.0-0.8) 10^3/u L Baso # (Auto) (0.0-0.1) 10^3/u L Nucleated RBC % (a uto) % Nucleated RBCs # /100WBC PT (12.1-14.9) SECO NDS INR (0.8-1.2) D-Dimer (0-0.59) ug/mIFE U Specimen Type Arterial Sample Site Radial, left ABG pH 7.45 (7.35-7.45) ABG pCO2 39.5 (35-45) mmHg ABG pO2 50.1 L (80.0-100.0) mmH g ABG HCO3 27.5 H (22-26) mmol/L ABG Base Excess 3.2 H (-2.0-2.0) mmol/ L Jaren Test Pos Hematocrit 27.2 L (37-47) % Hgb O2 Saturation 85.2 L (95-100) % Carboxyhemoglobin 1.0 (0.4-20.1) %THgb Methemoglobin 1.1 (0.4-1.5) % Total Hemoglobin 8.9 L (12-16) g/dL O2 Delivery Device Nc O2 Liters/Min 6.0 % Business Database Analyst ID [email or web address] Sodium (136-145) mmol/L Potassium (3.5-5.1) mmol/L Chloride (98-107) mmol/L Carbon Dioxide (22-29) mmol/L Anion Gap (5-19) BUN (8-23) mg/dL Creatinine (0.5-0.9) mg/dL GFR Calculation Glucose (65-115) mg/dL Calculated Osmolal ity (285-295) mOsm/k g Lactic Acid (0.5-2.2) mmol/L Calcium (8.5-10.5) mg/dL Magnesium (1.7-2.3) mg/dL Total Bilirubin (0.15-1.2) mg/dL AST (0-32) U/L ALT (0-33) U/L Alkaline Phosphata se (35-105) IU/L Troponin T Gen 5 n g/L (0-10) ng/L NT-Pro-B Natriuret Pep (0-450) pg/mL Total Protein (6.6-8.7) g/dL Albumin (3.5-5.2) g/dL Globulin (1.3-4.6) g/dL Procalcitonin (0-0.5) ng/mL EKG Data^: EKG 1: Attestation: I personally reviewed and interpreted this EKG as follows: (2200, sinus rhythm, left axis deviation, regular rate at age 72 bpm, no obvious ST elevation or ectopy is noted.) Critical Care Time Critical Care Time: Critical Care Time: Yes Total Critical Care Time: 30 Attestation: Patient was in respiratory distress on arrival to the ER. My assessment and management of patient required intensive care to ensure appropriate labs and orders entered Discharge Plan Discharge Patient Disposition: Admitted As Inpatient Clinical Impression: Bilateral pleural effusion Acute exacerbation of CHF (congestive heart failure) Qualifiers: Heart failure type: unspecified Qualified Code(s): I50.9 - Heart failure, unspecified Condition: Stable Coding Level of Care Code ED Medical Records Tech for [facility] Exam Comprehensive Documented by User: Jorge A Gonsalez MD 08/30/20 23:16 HPI - SOB/Dyspnea General: Chief Complaint: Shortness of Breath/Dyspnea Stated Complaint: SOB/ 02 ran out Time Seen by Provider: 08/30/20 21:35 PFSH ED PFSH: Medical History (Updated 08/30/20 @ 22:41 by BRAXTON Castanon) Acute respiratory failure Anemia CKD (chronic kidney disease) stage 3, GFR 30-59 ml/min Critical lower limb ischemia Diabetes mellitus Diabetic ulcer of heel Essential hypertension Hematemesis Hyperlipidemia NSTEMI (non-ST elevated myocardial infarction) Peripheral arterial disease Peripheral vascular disease Pneumonia Pulmonary edema Recent non-ST elevation myocardial infarction Surgical History Surgical history unknown Hysterectomy documented previously, but patient still appears to have her uterus on her CAT scan Family History Other Cancer Rheumatoid arthritis Social History Smoking and tobacco status: never smoked Alcohol intake: never Course Vital Signs: Vital signs: Vital Signs Temperature 98.1 F 08/30/20 21:34 Pulse Rate 69 08/30/20 23:13 Respiratory Rate 20 H 08/30/20 23:13 Blood Pressure 133/81 08/30/20 22:42 Pulse Oximetry 93 08/30/20 23:13 MDM - SOB/Dyspnea MDM Narrative: Medical decision making narrative: I discussed and went over films with midlevel with above patient. Patient CO2 here is normal she is hypoxic. She is improved on 6 L. X-ray is consistent with pulmonary edema. Patient given IV Lasix. She does have hyponatremia as well. She has no signs of a pneumonia. I spoke to the hospitalist and will admit to the cardiac stepdown. Lab Data: Labs: Lab Results 08/30/20 08/30/20 08/30/20 Range/Units 21:45 21:45 21:45 WBC 19.9 H (4.0-10.0) 10^3/ uL RBC 3.33 L (4.1-5.3) 10^6/u L Hgb 9.4 L (11.5-15.3) g/dL Hct 29.1 L (37.0-47.0) % MCV 87.4 (81-99) fL MCH 28.2 (28.0-34.0) pg MCHC 32.3 (30.0-36.0) g/dL RDW 14.8 (12.1-15.1) % Plt Count 523 H (130-400) 10^3/c mm MPV 10.8 H (7.4-10.4) fL Neut % (Auto) 80.7 % Lymph % (Auto) 8.4 % Garfield % (Auto) 5.3 % Eos % (Auto) 3.9 % Baso % (Auto) 0.7 % Neut # (Auto) 16.06 H (1.8-7.7) 10^3/u L Lymph # (Auto) 1.7 (0.8-4.8) 10^3/u L Garfield # (Auto) 1.1 H (0.2-0.9) 10^3/u L Eos # (Auto) 0.8 (0.0-0.8) 10^3/u L Baso # (Auto) 0.1 (0.0-0.1) 10^3/u L Nucleated RBC % (a uto) 0 % Nucleated RBCs # 0.0 /100WBC PT 13.40 (12.1-14.9) SECO NDS INR 0.99 (0.8-1.2) D-Dimer 12.65 H (0-0.59) ug/mIFE U Specimen Type Sample Site ABG pH (7.35-7.45) ABG pCO2 (35-45) mmHg ABG pO2 (80.0-100.0) mmH g ABG HCO3 (22-26) mmol/L ABG Base Excess (-2.0-2.0) mmol/ L Jaren Test Hematocrit (37-47) % Hgb O2 Saturation (95-100) % Carboxyhemoglobin (0.4-20.1) %THgb Methemoglobin (0.4-1.5) % Total Hemoglobin (12-16) g/dL O2 Delivery Device O2 Liters/Min % Business Database Analyst ID Sodium 122 L (136-145) mmol/L Potassium 5.3 H (3.5-5.1) mmol/L Chloride 84 L (98-107) mmol/L Carbon Dioxide 24 (22-29) mmol/L Anion Gap 19.3 H (5-19) BUN 58 H (8-23) mg/dL Creatinine 2.1 H (0.5-0.9) mg/dL GFR Calculation Not Reportable Glucose 213 H (65-115) mg/dL Calculated Osmolal ity 277 L (285-295) mOsm/k g Lactic Acid (0.5-2.2) mmol/L Calcium 8.7 (8.5-10.5) mg/dL Magnesium 1.5 L (1.7-2.3) mg/dL Total Bilirubin 0.4 (0.15-1.2) mg/dL AST 79 H (0-32) U/L ALT 58 H (0-33) U/L Alkaline Phosphata se 119 H (35-105) IU/L Troponin T Gen 5 n g/L (0-10) ng/L NT-Pro-B Natriuret Pep 85430 H (0-450) pg/mL Total Protein 6.9 (6.6-8.7) g/dL Albumin 3.5 (3.5-5.2) g/dL Globulin 3.4 (1.3-4.6) g/dL Procalcitonin (0-0.5) ng/mL 08/30/20 08/30/20 08/30/20 Range/Units 21:45 21:45 21:45 WBC (4.0-10.0) 10^3/ uL RBC (4.1-5.3) 10^6/u L Hgb (11.5-15.3) g/dL Hct (37.0-47.0) % MCV (81-99) fL MCH (28.0-34.0) pg MCHC (30.0-36.0) g/dL RDW (12.1-15.1) % Plt Count (130-400) 10^3/c mm MPV (7.4-10.4) fL Neut % (Auto) % Lymph % (Auto) % Garfield % (Auto) % Eos % (Auto) % Baso % (Auto) % Neut # (Auto) (1.8-7.7) 10^3/u L Lymph # (Auto) (0.8-4.8) 10^3/u L Garfield # (Auto) (0.2-0.9) 10^3/u L Eos # (Auto) (0.0-0.8) 10^3/u L Baso # (Auto) (0.0-0.1) 10^3/u L Nucleated RBC % (a uto) % Nucleated RBCs # /100WBC PT (12.1-14.9) SECO NDS INR (0.8-1.2) D-Dimer (0-0.59) ug/mIFE U Specimen Type Sample Site ABG pH (7.35-7.45) ABG pCO2 (35-45) mmHg ABG pO2 (80.0-100.0) mmH g ABG HCO3 (22-26) mmol/L ABG Base Excess (-2.0-2.0) mmol/ L Jaren Test Hematocrit (37-47) % Hgb O2 Saturation (95-100) % Carboxyhemoglobin (0.4-20.1) %THgb Methemoglobin (0.4-1.5) % Total Hemoglobin (12-16) g/dL O2 Delivery Device O2 Liters/Min % Business Database Analyst ID Sodium (136-145) mmol/L Potassium (3.5-5.1) mmol/L Chloride (98-107) mmol/L Carbon Dioxide (22-29) mmol/L Anion Gap (5-19) BUN (8-23) mg/dL Creatinine (0.5-0.9) mg/dL GFR Calculation Glucose (65-115) mg/dL Calculated Osmolal ity (285-295) mOsm/k g Lactic Acid 1.6 (0.5-2.2) mmol/L Calcium (8.5-10.5) mg/dL Magnesium (1.7-2.3) mg/dL Total Bilirubin (0.15-1.2) mg/dL AST (0-32) U/L ALT (0-33) U/L Alkaline Phosphata se (35-105) IU/L Troponin T Gen 5 n g/L 40 H (0-10) ng/L NT-Pro-B Natriuret Pep (0-450) pg/mL Total Protein (6.6-8.7) g/dL Albumin (3.5-5.2) g/dL Globulin (1.3-4.6) g/dL Procalcitonin 0.27 (0-0.5) ng/mL 08/30/20 Range/Units 22:05 WBC (4.0-10.0) 10^3/ uL RBC (4.1-5.3) 10^6/u L Hgb (11.5-15.3) g/dL Hct (37.0-47.0) % MCV (81-99) fL MCH (28.0-34.0) pg MCHC (30.0-36.0) g/dL RDW (12.1-15.1) % Plt Count (130-400) 10^3/c mm MPV (7.4-10.4) fL Neut % (Auto) % Lymph % (Auto) % Garfield % (Auto) % Eos % (Auto) % Baso % (Auto) % Neut # (Auto) (1.8-7.7) 10^3/u L Lymph # (Auto) (0.8-4.8) 10^3/u L Garfield # (Auto) (0.2-0.9) 10^3/u L Eos # (Auto) (0.0-0.8) 10^3/u L Baso # (Auto) (0.0-0.1) 10^3/u L Nucleated RBC % (a uto) % Nucleated RBCs # /100WBC PT (12.1-14.9) SECO NDS INR (0.8-1.2) D-Dimer (0-0.59) ug/mIFE U Specimen Type Arterial Sample Site Radial, left ABG pH 7.45 (7.35-7.45) ABG pCO2 39.5 (35-45) mmHg ABG pO2 50.1 L (80.0-100.0) mmH g ABG HCO3 27.5 H (22-26) mmol/L ABG Base Excess 3.2 H (-2.0-2.0) mmol/ L Jaren Test Pos Hematocrit 27.2 L (37-47) % Hgb O2 Saturation 85.2 L (95-100) % Carboxyhemoglobin 1.0 (0.4-20.1) %THgb Methemoglobin 1.1 (0.4-1.5) % Total Hemoglobin 8.9 L (12-16) g/dL O2 Delivery Device Nc O2 Liters/Min 6.0 % Business Database Analyst ID [email or web address] Sodium (136-145) mmol/L Potassium (3.5-5.1) mmol/L Chloride (98-107) mmol/L Carbon Dioxide (22-29) mmol/L Anion Gap (5-19) BUN (8-23) mg/dL Creatinine (0.5-0.9) mg/dL GFR Calculation Glucose (65-115) mg/dL Calculated Osmolal ity (285-295) mOsm/k g Lactic Acid (0.5-2.2) mmol/L Calcium (8.5-10.5) mg/dL Magnesium (1.7-2.3) mg/dL Total Bilirubin (0.15-1.2) mg/dL AST (0-32) U/L ALT (0-33) U/L Alkaline Phosphata se (35-105) IU/L Troponin T Gen 5 n g/L (0-10) ng/L NT-Pro-B Natriuret Pep (0-450) pg/mL Total Protein (6.6-8.7) g/dL Albumin (3.5-5.2) g/dL Globulin (1.3-4.6) g/dL Procalcitonin (0-0.5) ng/mL Discharge Plan Discharge Patient Disposition: Admitted As Inpatient Clinical Impression: Bilateral pleural effusion Acute exacerbation of CHF (congestive heart failure) Qualifiers: Heart failure type: unspecified Qualified Code(s): I50.9 - Heart failure, unspecified Condition: Stable Coding Level of Care Code ED Medical Records Tech for [facility] Fwd Exam Comprehensive
[2020-08-30 22:06] LABS: Basophils # 0.1 10^3/uL (0.0-0.1); Basophils % 0.7 %; Eosinophils # 0.8 10^3/uL (0.0-0.8); Eosinophils % 3.9 %; Hematocrit 29.1 % (37.0-47.0); Hemoglobin 9.4 g/dL (11.5-15.3); Lymphocytes # 1.7 10^3/uL (0.8-4.8); Lymphocytes % 8.4 %; Mean Corpuscular HGB Conc 32.3 g/dL (30.0-36.0); Mean Corpuscular Hemoglobin 28.2 pg (28.0-34.0); Mean Corpuscular Volume 87.4 fL (81-99); Mean Platelet Volume 10.8 fL (7.4-10.4); Monocytes # 1.1 10^3/uL (0.2-0.9); Monocytes % 5.3 %; Neutrophils # 16.06 10^3/uL (1.8-7.7); Neutrophils % 80.7 %; Nucleated Red Blood Cells % 0 %; Platelet Count 523 10^3/cmm (130-400); Red Blood Count 3.33 10^6/uL (4.1-5.3); Red Cell Distribution Width 14.8 % (12.1-15.1); White Blood Count 19.9 10^3/uL (4.0-10.0)
[2020-08-30] MEDS: ipratropium-albuterol 3 mL Neb INHALATION (22:08)
[2020-08-30 22:09] VITALS: PULSE 71; RESP 24; O2SAT 92
[2020-08-30] MEDS: aspirin 325 mg Tablet PO (22:09)
[2020-08-30] MEDS: nitroglycerin 1 gm/inch oint Pkt 1 INCH TOPICAL (22:09)
[2020-08-30] MEDS: FUROsemide 10 mg/mL SDV 4mL 40 MG IVP (22:09)
[2020-08-30 22:12] LABS: INR 0.99 (0.8-1.2)
[2020-08-30 22:13] VITALS: PULSE 74; RESP 27; O2SAT 89
[2020-08-30] MEDS: LORazepam 2 mg/mL INJ 1 mL 1 MG IVP (22:13)
--- NOTE | 2020-08-30 22:14 | PC.NURSE ---
Per ED physician take pt off nonrebreather and placed patient on 6L oxygen via nasal cannula
[2020-08-30 22:15] LABS: Lactic Sepsis W/Reflex 1.6 mmol/L (0.5-2.2)
[2020-08-30 22:16] LABS: Troponin T (5th) Once 40 ng/L (0-10)
[2020-08-30 22:17] LABS: ABG PCO2 39.5 mmHg (35-45); ABG PH Result 7.45 (7.35-7.45); Arterial Blood Gas Hematocrit 27.2 % (37-47); Base Excess ABG 3.2 mmol/L (-2.0-2.0); Blood Gas Allen Test Pos; Blood Gas Sample Site Radial, left; Blood Gas Sample Type Arterial; HCO3 ABG 27.5 mmol/L (22-26); HGB O2 Sat 85.2 % (95-100); Methemoglobin 1.1 % (0.4-1.5); Oxygen Device NC; PO2 ABG 50.1 mmHg (80.0-100.0); Total Hemoglobin 8.9 g/dL (12-16)
[2020-08-30 22:22] LABS: D Dimer 12.65 ug/mIFEU (0-0.59)
[2020-08-30 22:25] LABS: Alanine Aminotransferase 58 U/L (0-33); Albumin Level 3.5 g/dL (3.5-5.2); Alkaline Phosphatase 119 IU/L (35-105); Blood Urea Nitrogen 58 mg/dL (8-23); Calcium 8.7 mg/dL (8.5-10.5); Carbon Dioxide 24 mmol/L (22-29); Chloride 84 mmol/L (98-107); Globulin 3.4 g/dL (1.3-4.6); Glucose 213 mg/dL (65-115); Magnesium 1.5 mg/dL (1.7-2.3); NT Pro B Type Natriuretic Pept 24328 pg/mL (0-450); Osmolality Calculated 277 mOsm/kg (285-295); Sodium 122 mmol/L (136-145); Total Bilirubin 0.4 mg/dL (0.15-1.2); Total Protein 6.9 g/dL (6.6-8.7)
[2020-08-30 22:34] LABS: Anion Gap 19.3 (5-19); Aspartate Amino Transferase 79 U/L (0-32); Potassium 5.3 mmol/L (3.5-5.1)
--- NOTE | 2020-08-30 22:39 | CTR_ITS ---
PROCEDURE INFORMATION: Exam: CT Chest Without Contrast; Diagnostic Exam date and time: 08/30/2020 10:52 PM Age: 75 years old Clinical indication: Shortness of breath; Patient HX: C/O worsened SOB, b pleural effusions; Additional info: Pleural effusion, hypoxia TECHNIQUE: Imaging protocol: Diagnostic computed tomography of the chest without contrast. Radiation optimization: All CT scans at this facility use at least one of these dose optimization techniques: automated exposure control; mA and/or kV adjustment per patient size (includes targeted exams where dose is matched to clinical indication); or iterative reconstruction. COMPARISON: CT chest con [id number] 08/11/2020 4:40 PM RADIATION DOSE METRICS: Total DLP (mGy-cm): 489.16 FINDINGS: Lungs: Diffuse ground-glass opacities are seen within the hemithoraces most prominently on the left. There are strandy opacities and consolidation superimposed over the pleural effusions most probably representing atelectasis. However, pneumonia cannot be entirely excluded. Pleural space: There is a large right and moderate left pleural effusion. Heart: Calcifications are seen within the mitral valve annulus. Calcifications are present within the coronary arteries. Aorta: Calcifications are seen within the thoracic aorta. Lymph nodes: There are prominent mediastinal lymph nodes seen the largest measuring 13.2 mm transverse dimension at level 4R. Bones/joints: There is diffuse degenerative disc disease of the thoracolumbar spine. Soft tissues: Unremarkable. CT/CT chest con [id number] IMPRESSION: 1. There is a large right and moderate left pleural effusion. 2. There are diffuse ground-glass opacity seen within the left hemithorax. Some patchy opacities are seen in the lingula. Additionally, there are strandy opacities and consolidation seen superimposed over the pleural effusions within the lower lobes. These findings suggest bilateral pneumonia. A component of pulmonary edema cannot be entirely excluded as well. 3. There is moderate mediastinal lymphadenopathy possibly representing reactive lymph nodes. Radiation Dose CTDIVOL = (mGy): DLP = 489.16 (mGy-cm)
[2020-08-30 22:42] VITALS: BP 133/81; PULSE 69; RESP 23; O2SAT 93
[2020-08-30 22:58] LABS: Procalcitonin 0.27 ng/mL (0-0.5)
[2020-08-30 23:13] VITALS: PULSE 69; RESP 20; O2SAT 93
--- NOTE | 2020-08-30 23:16 | P.HP_ITS ---
Providers/Chief Complaint Primary Care Provider: Crystal Olivia MD Chief Complaint: ran out History of Present Illness Elizabeth Lima is a 75 year old female who was recently discharged from the hospital after management of CHF exacerbation, patient required mechanical ventilation for worsening shortness of breath 1100 cc transudative drained from the right side and 600 cc from left side, she was diuresed with Lasix and me tolazone and was extubated on 08/14 to BiPAP and eventually weaned down to nasal cannula, she was also on heparin drip because of increasing troponin which was discontinued due to upper GI bleed, she did not require any blood transfusion, her GERARD improved from 3.6-2.3 at the time of discharge with diuresis. She is presenting today with chief complaint of shortness of breath. Son is at the bedside who is stating that her shortness of breath got worse around 6 PM when she was in her recliner, she was experiencing air hunger, before today she would get short of breath on exertion, she will get orthopnea on and off, for most of the days she would spend her time in a sofa to keep her legs elevated. No recent fever vomiting noted by the son however patient has had diarrhea for quite some time. Ms. Lima has also been complaining of abdominal bloating. Diagnostics in the ER revealed hypoxia, to decrease work of breathing Ativan was given which made her very somnolent, by the time of my evaluation she was not able to give me any details, I requested another blood gas before starting her on BiPAP, CT scan to rule out pneumonia, chest x-ray shows pulmonary edema, leukocytosis with extremely high D-dimer concern for PE, not a candidate to get CTA, recurrence of pleural effusion bilaterally noted without any consolidation on x-ray, currently she is saturating well 93% on 6 L, she was given IV Lasix in the ER, as per the son patient also took 80 mg of Lasix at home before coming to the hospital. I have also requested calcium gluconate because of hyperkalemia and tall T waves evident on telemetry, EKG showing biphasic T waves in lateral leads. Of note, he had a nuclear stress test on last admission which she showed persistent decrease uptake of tracer in anterior apical region mid inferior lateral segments, she was managed medically. Review of Systems General: Reports: ROS unobtainable due to medical condition (Patient received Ativan 1 mg in the ER which made her very somnolent) Medications/Allergies Home Medications Medication Instructions Recorded Confirmed Last Taken Type gabapentin 200 mg PO BID 07/23/20 08/10/20 07/23/20 10:30 History amlodipine 10 mg PO DAILY #30 tab 08/05/20 08/10/20 Unknown Rx aspirin See Rx Instructions .ROUTE .COMPLEX 08/10/20 08/10/20 Unknown History atorvastatin 10 mg PO QPM 08/10/20 08/10/20 Unknown History Coreg 6.22 mg PO BID #60 tab 08/20/20 08/10/20 Unknown Rx furosemide 40 mg PO BID@06,18 #30 tab 08/20/20 Unknown Rx hydralazine 50 mg PO TID #90 tab 08/20/20 Unknown Rx pantoprazole 40 mg PO DAILY #30 tab 08/20/20 Unknown Rx potassium chloride 20 meq PO DAILY #30 tab 08/20/20 Unknown Rx citalopram 10 mg tablet 10 mg PO .HS #90 tab 08/26/20 08/26/20 Unknown Rx Allergies Allergy/AdvReac Type Severity Reaction Status Date / Time diclofenac [From Voltaren] Allergy Intermediate Wound Verified 08/10/20 09:23 metformin Allergy ADR-Diarrhe Verified 08/10/20 09:23 a mold Allergy Unknown Verified 08/10/20 09:23 FLU SHOT Allergy Unknown Uncoded 08/10/20 09:22 PFSH Acute PFSH: Medical History Acute respiratory failure Anemia CKD (chronic kidney disease) stage 3, GFR 30-59 ml/min Critical lower limb ischemia Diabetes mellitus Diabetic ulcer of heel Essential hypertension Hematemesis Hyperlipidemia NSTEMI (non-ST elevated myocardial infarction) Peripheral arterial disease Peripheral vascular disease Pneumonia Pulmonary edema Recent non-ST elevation myocardial infarction Surgical History Surgical history unknown Hysterectomy documented previously, but patient still appears to have her uterus on her CAT scan Family History Other Cancer Rheumatoid arthritis Social History Smoking and tobacco status: never smoked Alcohol intake: never Vitals/I&O/Wt Last Vital Signs Temp 98.1 F 08/30/20 21:34 Pulse 69 08/30/20 23:13 Resp 20 H 08/30/20 23:13 BP 133/81 08/30/20 22:42 Pulse Ox 93 08/30/20 23:13 Weight last 48 hrs Weight 48.534 kg Physical Exam Narrative: EXAM NARRATIVE: Frail elderly female Currently saturating well on 6 L nasal cannula Her respiratory rate is in 20s She will wake up on painful stimuli S1, S2 with signs of fluid overload Bloated abdomen, she has prominent abdominal breathing pattern Bowel sound present abdomen is nontender Left leg swelling more than right, 2+ pitting edema Left heel healing ulcer, right heel nonhealing ulcer, left calcaneal ulcer 0.5 x 0.5 x 0.1 cm fat layer exposed Neuro exam: Patient somnolent after getting Ativan However she responds to painful stimuli bilateral reactive pupil to light, no active strokelike symptoms GCS 12 Data : 08/30/20 21:45 08/30/20 21:45 Micro: Microbiology 08/30/20 22:33 Blood Culture - Preliminary Blood SPECIMEN COLLECTED 08/30/20 22:09 Blood Culture - Preliminary Blood SPECIMEN COLLECTED A&P Assessment and plan (1) Hypoxia: Status: Acute (2) Acute renal failure superimposed on stage 3 chronic kidney disease: Status: Acute (3) Hyperkalemia: Status: Acute (4) D-dimer, elevated: Status: Acute (5) Nonhealing ulcer of heel: Status: Acute (6) Unilateral edema of lower extremity: Status: Acute Additional A&P Information Acute on chronic hypoxic respiratory failure Secondary to CHF exacerbation with recurrence of pleural effusion currently requiring 6 L nasal cannula at home she requires 2 to 2.5 L Considering high D-dimer my suspicion is high for PE with unilateral left leg swelling I will start her on heparin drip Keep her on BiPAP overnight and admit to ICU for risk of worsening work of breathing and intubation Currently she saturating well on 6 L nasal cannula but because of administration of Ativan she has become more somnolent, trial of BiPAP, will obtain another blood gas before BiPAP usage No signs of consolidation on chest x-ray however I have requested CT chest as well because of leukocytosis and tachypnea, will check procalcitonin level, hold off on antibiotics for now Diastolic congestive heart failure exacerbation Coronary ischemia not ruled out EKG not showing ischemic changes however I do believe EKG changes are secondary to hyperkalemia for which I will give course of gluconate for now Continue heparin drip for possible PE Serial troponin and EKG BNP 24,000 Considering her recurrent pleural effusion I do believe she would definitely benefit from a thoracentesis which needs to be scheduled after holding heparin for for about 4 to 6 hours Hyperkalemia with acute on chronic kidney disease stage III This most likely is cardiorenal in nature due to active signs of CHF exacerbation, I will give her calcium gluconate and Kayexalate, she had received IV Lasix as well Potassium 5.3, magnesium 1.5 Judicious replenishment of left lites due to worsening creatinine Left extremity swelling rule out DVT will request venous Doppler Full code goals of care discussed with the son N.p.o. DVT prophylaxis not needed currently she is on heparin drip Attestations Medical Necessity Statement*: Anticipating stay in the hospital cross more than 2 midnights currently need ICU as she is high risk for intubation, wi thdrawing BiPAP trial, needs closer monitoring, on heparin drip for possible PE Time Spent in Patient Care: (>than 50% of time spent in counselling and/or direct pt care on unit) . 50mins Coding Level of Care Code Acute Hazardous Materials Analyst for Chg [employer] Diagnoses Hypoxia R09.02 Acute renal failure superimposed on stage 3 chronic kidney disease N17.9; N18.30 Hyperkalemia E87.5 D-dimer, elevated R79.89 Nonhealing ulcer of heel L97.409 Unilateral edema of lower extremity R60.0
[2020-08-30 23:42] LABS: SARS Covid-2 Antigen Negative (Negative)
[2020-08-31] VITALS (89 sets, daily range): BP systolic 104–175; BP diastolic 44–103; PULSE 34–90; RESP 15–27; TEMP -13.2–36.6; O2SAT 84–99
[2020-08-31 00:34] LABS: ABG PCO2 38.5 mmHg (35-45); ABG PH Result 7.44 (7.35-7.45); Base Excess ABG 1.9 mmol/L (-2.0-2.0); Blood Gas Sample Site Brachial, right; Blood Gas Sample Type Arterial; HCO3 ABG 26.2 mmol/L (22-26); Oxygen Device NC; PO2 ABG 72.9 mmHg (80.0-100.0)
--- NOTE | 2020-08-31 01:49 | PC.NURSE ---
Julia ALFONSO from ICU called to get patient report at [phone]
--- NOTE | 2020-08-31 02:22 | USCV_ITS ---
Elizabeth Lima Age: 75 Gender: F : 1945 Exam Date: 08/31/2020 05:48 Ordering Phys: Jin Arreaga MD Technologist: Jazmin Carrera Exam Location: [facility] – [place] Indication: EVAL FOR LLE DVT HISTORY: Lower extremity swelling. PROCEDURES: Venous duplex imaging was performed in only the left lower extremity. The following venous structures were evaluated: common femoral vein, profunda vein, proximal portion of the greater saphenous vein, superficial femoral vein, and the popliteal vein. In addition, the posterior tibial veins were evaluated. In addition, the posterior tibial and peroneal trunk were evaluated. FINDINGS: No evidence of DVT seen in any vessel visualized at this time. CONCLUSIONS No evidence of left lower extremity DVT. Ilan Earl MD (Electronically Signed) Final Date: 31 August 2020 08:58 S
--- NOTE | 2020-08-31 02:38 | PC.NURSE ---
Patient arrived to ICU from ED at 0216. Patient is on 6 L NC. A&O with intermittent episodes of confusion. Call light within reach. Continue care.
[2020-08-31 04:46] LABS: Basophils # 0.1 10^3/uL (0.0-0.1); Basophils % 0.5 %; Eosinophils # 0.1 10^3/uL (0.0-0.8); Hematocrit 26.1 % (37.0-47.0); Hemoglobin 8.6 g/dL (11.5-15.3); Lymphocytes % 8.3 %; Mean Corpuscular Hemoglobin 28.3 pg (28.0-34.0); Mean Corpuscular Volume 85.9 fL (81-99); Mean Platelet Volume 10.6 fL (7.4-10.4); Monocytes # 0.5 10^3/uL (0.2-0.9); Monocytes % 3.9 %; Neutrophils # 10.09 10^3/uL (1.8-7.7); Neutrophils % 85.8 %; Nucleated Red Blood Cells % 0 %; Platelet Count 325 10^3/cmm (130-400); Red Blood Count 3.04 10^6/uL (4.1-5.3); Red Cell Distribution Width 14.6 % (12.1-15.1); White Blood Count 11.8 10^3/uL (4.0-10.0)
[2020-08-31 04:57] LABS: Anion Gap 17.6 (5-19); Blood Urea Nitrogen 56 mg/dL (8-23); Carbon Dioxide 26 mmol/L (22-29); Chloride 88 mmol/L (98-107); Glucose 163 mg/dL (65-115); Osmolality Calculated 283 mOsm/kg (285-295); Potassium 4.6 mmol/L (3.5-5.1); Sodium 127 mmol/L (136-145)
--- NOTE | 2020-08-31 05:05 | PC.NURSE ---
Noted after admission to ICU that pt has heparin drip ordered. Notified Dr. Abreu that pt had recent GI bleed. Orders received to continue with heparin drip.
[2020-08-31 06:17] LABS: Partial Thromboplastin Time 34.6 SECONDS (23.9-36.7)
[2020-08-31] MEDS: ipratropium-albuterol 3 mL Neb INHALATION (08:56)
--- NOTE | 2020-08-31 09:06 | PC.CHAP ---
Pastoral Care Encounter/Spiritual Assessment Type of Contact [] Declined processing spec visit [] Patient/Family/Request visit [] Outpatient visit [] Follow-up visit [] Physician referral [] Code/Alert [x] Routine visit [] Staff referral [] Actively dying [] Patient sleeping [] Family support [] [] Out of room [] Palliative care [] [] Receiving care in room [] Pre-surgical visit [] Trauma [] Long length of stay [x] ICU visit [x] Other: outside room Relational/Emotional Strength [] Patient feels connected with others/family/visitors/staff [] Distress [] Loneliness/isolation [] Abandonment Spirituality of Patient [] Person of Niyah [] Attends Catholic of their Niyah [] Believes in Prayer [] Reads Bible or Buddhism materials [] There are Spiritual issues to be addressed Marketing Professor Interventions [x] Prayer [] Active listening [] Non-anxious presence [] Spiritual/emotional support [] Crisis/trauma care [] Spiritual counseling [] Bereavement support [] Provided bereavement packet [] Provided Bible/devotional materials [] Provided toy/stuffed animal, coloring book to patient or family member [] Provided Communion [] Anointing/[place] [] Salvation [x] Completed spiritual assessment [] Other: Impact on Illness or Injury [] Angry [] Fearful [] Anxious [] Often cries [] Exhaustion [] Unable to work [] Unable to attend protestant [] Unable to walk/stand [] Unable to read [] Unable to drive [] Unable to eat/drink [] Unable to sleep [] Unable to be with family [] Patient intubated [] Other: Summary Time spent with patient
[2020-08-31] MEDS: pantoprazole DR 40 mg Tablet PO ×2 (09:50→17:49)
[2020-08-31] MEDS: bumetanide 0.25 mg/mL SDV 4 mL 1 MG IV (09:50)
[2020-08-31] MEDS: aspirin 81 mg EC Tablet PO (09:50)
--- NOTE | 2020-08-31 10:54 | NM_ITS ---
WS: [id number] NUCLEAR MEDICINE LUNG VENTILATION AND PERFUSION CLINICAL INFORMATION: evalute for PE TECHNIQUE: Ventilation/perfusion lung scan with 32.8 mCi technetium 99m DTPA. 5.2 mCi technetium 99m MAA COMPARISON: None. FINDINGS: Chest radiograph reviewed. Recent chest radiograph demonstrates moderate bilateral pleural effusions right greater than left with compressive atelectasis in the lung bases. Central deposition of radiotracer on the ventilatory images. Radiotracer deposition along the trachea . Normal symmetric radiotracer uptake on the perfusion images. Fluid along the right fissure. No mism atched ventilation/perfusion defects to suggest pulmonary embolus. No lobar defects. NM/NM pul vent and perfus* [id number] IMPRESSION: 1. Low probability for pulmonary embolus.
--- NOTE | 2020-08-31 11:01 | P.PN_ITS ---
Subjective Subjective: Interval history: Overnight labs, H& P noted, Off bipap this morning, saturating 96% on 4lpm 02 , Hb drifted down to 8.6, heparin infusion was then discontinued, D dimer at 12.6. urine output 1.1L Medications: Reviewed: Yes Vitals/I&O/Wt Last Vital Signs Temp 971 F H 08/31/20 07:30 Pulse 74 08/31/20 10:30 Resp 25 H 08/31/20 10:30 BP 161/64 08/31/20 10:30 Pulse Ox 96 08/31/20 10:30 08/30/20 08/31/20 08/31/20 22:59 06:59 14:59 Intake Total 60 / 60 100 / 100 Output Total 500 / 500 Balance -440 / -440 100 / 100 Weight last 48 hrs Weight 55.973 kg Weight 58.513 kg Weight 48.534 kg Physical Exam Narrative: EXAM NARRATIVE: GEN: Awake, alert and oriented, no acute distress HEENT: NC in place CVS: S1S2 N RS: CTA B/L anteriorly FINE ARTS MODEL: no focal neuro deficits Ext: RLE prssure ulcer over heel, appears chronic Urinary Catheter Management^: Mcfarland: Cath Placed During This Visit: yes Reason for Continuing Indwelling Catheter: Accurate Measurement of Urinary Output in Critically Ill Patients Urinary Catheter Date of Insertion: 08/31/20 Urinary Catheter Time of Insertion: 02:25 Data : 08/31/20 04:08 08/31/20 04:08 Micro: Microbiology 08/30/20 22:33 Blood Culture - Preliminary Blood SPECIMEN COLLECTED 08/30/20 22:09 Blood Culture - Preliminary Blood SPECIMEN COLLECTED A&P Assessment and plan (1) Hypoxia: Status: Acute (2) Acute renal failure superimposed on stage 3 chronic kidney disease: Status: Acute (3) Hyperkalemia: Status: Acute (4) D-dimer, elevated: Status: Acute (5) Nonhealing ulcer of heel: Status: Acute (6) Unilateral edema of lower extremity: Status: Acute Additional A&P Information # Acute on chronic hypoxic respiratory failure Likely to be multifactorial realted to CHF exacerbation and B/L pleural effu aminata, currently on 6lpm NC , home requirement of 2-2.5lpm, states her 02 has come of on several ocassions at night, requests to switch to night time mask instead of nasal canula High D dimer, started on heparin drip overnight then discontinued as Hb drifted to 8.6 Check v/Q scan, Le duplex, if either positive, will need a/c ,however would not use empirically at this time Ct chest perfromed overnight with large B/L pleural effusions, with underlying component of consolidation vs atelactasis, however not significantly changed since CT chest from 08/11 Leukocytosis has trended down , monitor off abx for now COVID ag negative on 08/09 and 08/30 overnight oximetry study to see if she will benefit from home bipap # Large B/L pleural effusions s/p right thoracentesis on left thoracentesis on 08/15, fluid analysis suggested transudate fluid, likely related to CHF Pulmonary consult in am to assess for repeat thoracentesis this admission no malignancy on path from 08/18 Gram stain negative from 08/12 and 08/15 resp cx with few mixed upper resp kosta negative bacterial ag panel on 08/10 # Diastolic congestive heart failure exacerbation less likely ACS, troponin 40, last admission in jul noted to be 680 recent NSTEMI, seen by cardiology on 08/20, decided continue medical management since patient has recent history of GI bleed and underlying renal failure which can further be complicated by proceeding with invasive strategy. BNP > 24,000 from 07/2020, LVEF 55%, mild hypokinesis of apical and inferior wallsm moderate AV stenosis continue Bumex 1mg iv daily for now continue ASA 81mg ,Coreg 6.25mg BID # recent h/o GI bleed 2/2 duodenitis/gastritis , start protonix 40mg po BID Full code goals of care discussed with the son Start diet ,cardiac DVT prophylaxis: await results of V/q scan. then will decide between therapeutic vs ppx a/c Attestations Medical Necessity Statement*: acute on chronic hypoxic respiratory failure , needs ongoing monitoring of resp status Coding Level of Care Code Acute Actuarial Associate for Janice Long Diagnoses Hypoxia R09.02 Acute renal failure superimposed on stage 3 chronic kidney disease N17.9; N18.30 Hyperkalemia E87.5 D-dimer, elevated R79.89 Nonhealing ulcer of heel L97.409 Unilateral edema of lower extremity R60.0
--- NOTE | 2020-08-31 16:04 | PC.NURSE ---
All patient care and charting done by Lo Baker, student nurse, directly supervised by this nurse.
[2020-08-31] MEDS: FUROsemide 10 mg/mL SDV 4mL 40 MG IVP (17:50)
[2020-08-31] MEDS: atorvastatin 40 mg Tablet 10 MG PO (17:50)
--- NOTE | 2020-08-31 18:37 | PC.NURSE ---
Shift summary: Pt alert and oriented. She became very short of breath before unch, Started on BiPAp. She is tolerating it well. It was taken off this afternoon for a VQ scan. She was short of breath aglain after test, BiPap reappliedBumex IV this am and Lasix IV this evening. 1050ml pae yellow urine output noted. .
--- NOTE | 2020-08-31 19:28 | PC.NURSE ---
Report given to KADEN Florian.
[2020-08-31] MEDS: gabapentin 100 mg Capsule 200 MG PO (23:09)
[2020-08-31] MEDS: citalopram 20 mg Tablet 10 MG PO (23:10)
[2020-08-31] MEDS: carvedilol 6.25 mg Tablet PO (23:10)
[2020-09-01] VITALS (25 sets, daily range): BP systolic 112–147; BP diastolic 47–99; PULSE 57–74; RESP 13–24; TEMP 36.2–36.6; O2SAT 87–99
[2020-09-01 05:20] LABS: Basophils # 0.1 10^3/uL (0.0-0.1); Basophils % 0.7 %; Eosinophils # 0.4 10^3/uL (0.0-0.8); Eosinophils % 4.7 %; Hematocrit 24.6 % (37.0-47.0); Hemoglobin 8.1 g/dL (11.5-15.3); Lymphocytes # 1.4 10^3/uL (0.8-4.8); Mean Corpuscular HGB Conc 32.9 g/dL (30.0-36.0); Mean Corpuscular Hemoglobin 28.5 pg (28.0-34.0); Mean Corpuscular Volume 86.6 fL (81-99); Mean Platelet Volume 10.4 fL (7.4-10.4); Monocytes # 0.6 10^3/uL (0.2-0.9); Monocytes % 6.9 %; Neutrophils # 6.32 10^3/uL (1.8-7.7); Neutrophils % 71.4 %; Nucleated Red Blood Cells % 0 %; Platelet Count 329 10^3/cmm (130-400); Red Blood Count 2.84 10^6/uL (4.1-5.3); White Blood Count 8.9 10^3/uL (4.0-10.0)
[2020-09-01 06:03] LABS: Alanine Aminotransferase 31 U/L (0-33); Albumin Level 2.9 g/dL (3.5-5.2); Alkaline Phosphatase 86 IU/L (35-105); Anion Gap 13.6 (5-19); Aspartate Amino Transferase 29 U/L (0-32); Blood Urea Nitrogen 53 mg/dL (8-23); Calcium 8.9 mg/dL (8.5-10.5); Carbon Dioxide 29 mmol/L (22-29); Chloride 93 mmol/L (98-107); Globulin 3.4 g/dL (1.3-4.6); Glucose 105 mg/dL (65-115); Osmolality Calculated 289 mOsm/kg (285-295); Potassium 3.6 mmol/L (3.5-5.1); Sodium 132 mmol/L (136-145); Total Bilirubin 0.4 mg/dL (0.15-1.2); Total Protein 6.3 g/dL (6.6-8.7)
[2020-09-01] MEDS: carvedilol 6.25 mg Tablet PO ×2 (06:14→20:06)
[2020-09-01] MEDS: gabapentin 100 mg Capsule 200 MG PO ×2 (06:14→20:05)
[2020-09-01 07:18] LABS: Folate Level 12.3 ng/mL (4.8-37.3)
[2020-09-01 07:23] LABS: Ferritin 468 ng/mL (15-150); Iron 22 ug/dL (37-145); Percent Saturation 14.1 % (20-50); Total Iron Binding Capacity 156 mcg/dl; Unsaturated Iron Binding 134 ug/dL (112-347)
[2020-09-01 07:39] LABS: Vitamin B12 1080 pg/mL (232-1245)
--- NOTE | 2020-09-01 09:13 | PC.CHAP ---
Pastoral Care Encounter/Spiritual Assessment Type of Contact [] Declined polisher eyeglass frames visit [] Patient/Family/Request visit [] Outpatient visit [] Follow-up visit [] Physician referral [] Code/Alert [x] Routine visit [] Staff referral [] Actively dying [] Patient sleeping [] Family support [] [] Out of room [] Palliative care [] [] Receiving care in room [] Pre-surgical visit [] Trauma [] Long length of stay [x] ICU visit [] Other: Relational/Emotional Strength [] Patient feels connected with others/family/visitors/staff [] Distress [] Loneliness/isolation [] Abandonment Spirituality of Patient [x] Person of Niyah [] Attends Zoroastrian of their Niyah [x] Believes in Prayer [] Reads Bible or Taoism materials [] There are Spiritual issues to be addressed Branch Sales And Service Representative Interventions [x] Prayer [x] Active listening [x] Non-anxious presence [x] Spiritual/emotional support [] Crisis/trauma care [] Spiritual counseling [] Bereavement support [] Provided bereavement packet [] Provided Bible/devotional materials [] Provided toy/stuffed animal, coloring book to patient or family member [] Provided Communion [] Anointing/[place] [] Salvation [x] Completed spiritual assessment [] Other: Impact on Illness or Injury [] Angry [] Fearful [] Anxious [] Often cries [] Exhaustion [] Unable to work [] Unable to attend mosque [] Unable to walk/stand [] Unable to read [] Unable to drive [] Unable to eat/drink [] Unable to sleep [] Unable to be with family [] Patient intubated [] Other: Summary polisher eyeglass frames invited inside room.. polisher eyeglass frames has visited with patient at times in hospital.. breathing of patient is improving and she is resting well Time spent with patient 15 min
[2020-09-01] MEDS: bumetanide 0.25 mg/mL SDV 4 mL 1 MG IV (09:21)
[2020-09-01] MEDS: pantoprazole DR 40 mg Tablet PO ×2 (09:22→18:27)
--- NOTE | 2020-09-01 13:02 | XR_ITS ---
WS: [id number] Exam: XR chest 1V portable [id number] Date/Time of Exam: 09/01/2020 1:28 PM Reason For Exam: f/up on pleural effusion Comparison 08/30/2020. Decreased right pleural effusion since the previous study. There are infiltrates in the bilateral low er lung zones. The heart is slightly enlarged. No pneumothorax seen. Monitoring leads superimpose the chest. XR/XR chest 1V portable [id number] IMPRESSION: 1. Improved right basal pleural effusion since prior study. 2. There are still bibasal pleural effusions and infiltrates present.
--- NOTE | 2020-09-01 14:14 | PC.NURSE ---
Wounds: Left and right mixed up on assessment. Pt's RIGHT heel iw the heel with the eschar and wound. The LEFT heel is a HEALED wound.
--- NOTE | 2020-09-01 14:23 | PC.NURSE ---
Pt requested Opti-foam be removed from her buttock. Explained to pt the Opti-foam was there to protect her skin d/t ulcer, pt voiced understanding and requested it to be removed anyway so I removed Opti-foam, which was soiled with very minimal yellow drainage, applied barrier cream to buttock and turned pt to left side.
[2020-09-01] MEDS: atorvastatin 40 mg Tablet 10 MG PO (18:28)
--- NOTE | 2020-09-01 18:37 | PC.NURSE ---
All care and charting by Mirta Ya Rn, nurse residency, supervised by this nurse.
--- NOTE | 2020-09-01 18:41 | P.PN_ITS ---
Subjective Subjective: Interval history: Remained off BiPAP this morning. No new complaints. Conversing in full sentences. Alert awake. Net -2.2 L. Chest x- ray taken today with improving pleural effusion.02 requirement improving at 3lpm today Medications: Reviewed: Yes Vitals/I&O/Wt Last Vital Signs Temp 97.2 F L 09/01/20 15:00 Pulse 65 09/01/20 18:00 Resp 16 09/01/20 18:00 BP 137/59 09/01/20 18:00 Pulse Ox 93 09/01/20 18:00 09/01/20 09/01/20 09/01/20 06:59 14:59 22:59 Intake Total 540 / 540 460 / 1000 Output Total 999 / 0 365 / 365 735 / 1100 Balance -1000 / -1750 175 / 175 -275 / -100 Weight last 48 hrs Weight 55.973 kg Weight 58.513 kg Weight 48.534 kg Physical Exam Narrative: EXAM NARRATIVE: GEN: Awake, alert and oriented, no acute distress CVS: S1S2 N RS: Reduced air entry at B/L lung bases. Abd: Soft, nt/nd , bs+ MOTOR RACER: no focal neuro deficits Urinary Catheter Management^: Mcfarland: Cath Placed During This Visit: yes Reason for Continuing Indwelling Catheter: Accurate Measurement of Urinary Output in Critically Ill Patients Urinary Catheter Date of Insertion: 08/31/20 Urinary Catheter Time of Insertion: : Data : 09/01/20 04:49 09/01/20 04:49 Micro: Microbiology 08/30/20 22:33 Blood Culture - Preliminary Blood NEGATIVE TO DATE 08/30/20 22:09 Blood Culture - Preliminary Blood NEGATIVE TO DATE A&P Assessment and plan (1) Hypoxia: Status: Acute (2) Acute renal failure superimposed on stage 3 chronic kidney disease: Status: Acute (3) Hyperkalemia: Status: Acute (4) D-dimer, elevated: Status: Acute (5) Nonhealing ulcer of heel: Status: Acute (6) Unilateral edema of lower extremity: Status: Acute Additional A&P Information # Acute on chronic hypoxic respiratory failure Likely to be multifactorial realted to CHF exacerbation and B/L pleural effusion, currently on 3lpm NC (improving) , home requirement of 2-2.5lpm, states her 02 has come of on several ocassions at night, requests to switch to night time mask instead of nasal canula v/Q scan, Le duplex negative Ct chest with large B/L pleural effusions, with underlying component of consolidation vs atelactasis, however not significantly changed since CT chest from 08/11 CXR today with improving effusion with diuresis Discussed with family- would want to hold off on thoracentesis as much as possible, will try to optimize medically for now Leukocytosis has trended down , no current signs of acute infection COVID ag negative on 08/09 and 08/30 overnight oximetry study taken - results show 20 desat episodes total to less than 89%, 28 min desaturation time total, needed to be placed on Bipap at 4 am due to increased work of breathing. Will benefit from Bipap at home. Results faxed over to HOME # Large B/L pleural effusions s/p right thoracentesis on left thoracentesis on 08/15, fluid analysis suggested transudate fluid, likely related to CHF Improving with diuresis currently no malignancy on path from 08/18 Gram stain negative from 08/12 and 08/15 resp cx with few mixed upper resp kosta negative bacterial ag panel on 08/10 # Diastolic congestive heart failure exacerbation less likely ACS, troponin 40, last admission in jul noted to be 680 recent NSTEMI, seen by cardiology on 08/20, decided continue medical management since patient has recent history of GI bleed and underlying renal failure which can further be complicated by proceeding with invasive strategy. BNP > 24,000 from 07/2020, LVEF 55%, mild hypokinesis of apical and inferior wallsm moderate AV stenosis change Bumex 1mg iv to lasix 80 mg po BID. has needed additional doses of 40mg iv lasix yesetrday and today ASA 81mg held overnight due to hb ti 8.1 will monitor, FOBT pending Continue Coreg 6.25mg BID # recent h/o GI bleed 2/2 duodenitis/gastritis , start protonix 40mg po BID Full code Start diet ,cardiac DVT prophylaxis: SCDs for now while awaiting results of FOBT Attestations Medical Necessity Statement*: optimization of respiratory status, Need for ongoing diuresis, change iv Bumex to po lasix and monitor for improvement Coding Level of Care Code Acute Sustainable Communities Designer for Janice Fwd Diagnoses Hypoxia R09.02 Acute renal failure superimposed on stage 3 chronic kidney disease N17.9; N18.30 Hyperkalemia E87.5 D-dimer, elevated R79.89 Nonhealing ulcer of heel L97.409 Unilateral edema of lower extremity R60.0
--- NOTE | 2020-09-01 18:52 | PC.NURSE ---
Report given to KADEN Cartagena.
--- NOTE | 2020-09-01 18:52 | PC.NURSE ---
Shift summary: Pt pleasant, talkative older lady who is alert and oriented. She use a nasal cannula or oxymask throughout the day, O2 decreased to 4lpm. Her O2 sats drop when she is sleeping wearing the nasal cannula. She has ate well. NO bowel movemtns this shift. Urine output 1100ml.
[2020-09-01] MEDS: FUROsemide 10 mg/mL SDV 4mL 40 MG IVP (19:25)
[2020-09-01] MEDS: citalopram 20 mg Tablet 10 MG PO (20:06)
[2020-09-01 20:21] LABS: Glucose Point of Care 218 mg/dL (70-110)
[2020-09-01] MEDS: lidocaine 2% viscous 15 ML, aluminum-mag hydrox-simethicon 30 ML, sucralfate oral liq 1 GM PO (23:23)
[2020-09-01] MEDS: TRAMadol 50 mg Tablet PO (23:26)
[2020-09-02] VITALS (8 sets, daily range): BP systolic 122–140; BP diastolic 58–68; PULSE 52–65; RESP 11–18; TEMP 36.6–36.7; O2SAT 95–98
[2020-09-02 05:08] LABS: Basophils # 0.1 10^3/uL (0.0-0.1); Basophils % 0.7 %; Eosinophils # 0.4 10^3/uL (0.0-0.8); Eosinophils % 5.7 %; Hematocrit 23.1 % (37.0-47.0); Hemoglobin 7.5 g/dL (11.5-15.3); Lymphocytes # 1.5 10^3/uL (0.8-4.8); Lymphocytes % 21.3 %; Mean Corpuscular HGB Conc 32.5 g/dL (30.0-36.0); Mean Corpuscular Hemoglobin 28.3 pg (28.0-34.0); Mean Corpuscular Volume 87.2 fL (81-99); Mean Platelet Volume 10.4 fL (7.4-10.4); Monocytes # 0.6 10^3/uL (0.2-0.9); Monocytes % 8.6 %; Neutrophils # 4.41 10^3/uL (1.8-7.7); Neutrophils % 63.3 %; Nucleated Red Blood Cells % 0 %; Platelet Count 292 10^3/cmm (130-400); Red Blood Count 2.65 10^6/uL (4.1-5.3)
[2020-09-02] MEDS: ondansetron 2 mg/ML SDV 2 mL 4 MG IVP (05:26)
[2020-09-02 05:36] LABS: Alanine Aminotransferase 28 U/L (0-33); Albumin Level 3.1 g/dL (3.5-5.2); Alkaline Phosphatase 87 IU/L (35-105); Anion Gap 13.9 (5-19); Aspartate Amino Transferase 32 U/L (0-32); Blood Urea Nitrogen 51 mg/dL (8-23); Calcium 8.6 mg/dL (8.5-10.5); Carbon Dioxide 30 mmol/L (22-29); Chloride 94 mmol/L (98-107); Globulin 3.2 g/dL (1.3-4.6); Glucose 117 mg/dL (65-115); Osmolality Calculated 293 mOsm/kg (285-295); Potassium 3.9 mmol/L (3.5-5.1); Sodium 134 mmol/L (136-145); Total Bilirubin 0.4 mg/dL (0.15-1.2); Total Protein 6.3 g/dL (6.6-8.7)
[2020-09-02 05:55] LABS: Estmated Average Glucose 114; Hemoglobin A1C 5.6 % (4.0-6.0)
[2020-09-02] MEDS: carvedilol 6.25 mg Tablet PO ×2 (06:11→20:38)
[2020-09-02] MEDS: gabapentin 100 mg Capsule 200 MG PO ×2 (06:11→20:36)
[2020-09-02 08:53] LABS: Glucose Point of Care 117 mg/dL (70-110)
[2020-09-02] MEDS: sennosides-docusate Tablet 1 TAB PO ×2 (09:41→18:19)
[2020-09-02] MEDS: FUROsemide 40 mg Tablet 80 MG PO ×2 (09:41→16:50)
[2020-09-02] MEDS: pantoprazole DR 40 mg Tablet PO ×2 (09:41→18:19)
[2020-09-02] MEDS: amlodipine 10 mg Tablet PO (09:41)
--- NOTE | 2020-09-02 09:50 | PC.CHAP ---
Pastoral Care Encounter/Spiritual Assessment Type of Contact [] Declined beam dyer operator visit [] Patient/Family/Request visit [] Outpatient visit [] Follow-up visit [] Physician referral [] Code/Alert [x] Routine visit [] Staff referral [] Actively dying [] Patient sleeping [] Family support [] [] Out of room [] Palliative care [] [] Receiving care in room [] Pre-surgical visit [] Trauma [] Long length of stay [x] ICU visit [] Other: Relational/Emotional Strength [] Patient feels connected with others/family/visitors/staff [] Distress [] Loneliness/isolation [] Abandonment Spirituality of Patient [x] Person of Niyah [] Attends Gnosticism of their Niyah [] Believes in Prayer [] Reads Bible or Methodist materials [] There are Spiritual issues to be addressed Tnt Line Supervisor Interventions [x] Prayer [x] Active listening [x] Non-anxious presence [x] Spiritual/emotional support [] Crisis/trauma care [] Spiritual counseling [] Bereavement support [] Provided bereavement packet [] Provided Bible/devotional materials [] Provided toy/stuffed animal, coloring book to patient or family member [] Provided Communion [] Anointing/[place] [] Salvation [x] Completed spiritual assessment [] Other: Impact on Illness or Injury [] Angry [] Fearful [] Anxious [] Often cries [] Exhaustion [] Unable to work [] Unable to attend hinduism [] Unable to walk/stand [] Unable to read [] Unable to drive [] Unable to eat/drink [] Unable to sleep [] Unable to be with family [] Patient intubated [] Other: Summary patient setting up in chair for breakfast.. enjoyed visit with beam dyer operator.. looking forward to returning home. Time spent with patient 15 min
[2020-09-02 12:50] LABS: Glucose Point of Care 146 mg/dL (70-110)
--- NOTE | 2020-09-02 15:35 | PM.PN ---
Subjective Subjective: Interval history: Transition to p.o. Lasix this morning. Overnight needed BiPAP, this morning transition back to oxygen mask. Oxygen mask is chosen over nasal cannula due to patient preference and her comfort. Hemoglobin dropped to 7.5 today. Has not had a bowel movement to check occult blood at this present time.Urine output 1.1 L. Medications: Reviewed: Yes Vitals/I&O/Wt Last Vital Signs Temp 97.2 F L 09/01/20 15:00 Pulse 55 L 09/02/20 06:00 Resp 18 09/02/20 00:00 BP 137/68 09/02/20 00:00 Pulse Ox 95 09/02/20 03:20 09/02/20 09/02/20 09/02/20 06:59 14:59 22:59 Intake Total 100 / 1200 220 / 220 Output Total 200 / 1550 Balance -100 / -350 220 / 220 Physical Exam Narrative: EXAM NARRATIVE: GEN: Awake, alert and oriented, no acute distress CVS: S1S2 N RS: CTA B/L Abd: Soft, nt/nd , bs+ AQUATIC LIFE LABORER: no focal neuro deficits Urinary Catheter Management^: Mcfarland: Cath Placed During This Visit: yes Reason for Continuing Indwelling Catheter: Accurate Measurement of Urinary Output in Critically Ill Patients Urinary Catheter Date of Insertion: 08/31/20 Urinary Catheter Time of Insertion: 02:25 Data : 09/02/20 04:41 09/02/20 04:41 A&P Assessment and plan (1) Hypoxia: Status: Acute (2) Acute renal failure superimposed on stage 3 chronic kidney disease: Status: Acute (3) Hyperkalemia: Status: Acute (4) D-dimer, elevated: Status: Acute (5) Nonhealing ulcer of heel: Status: Acute (6) Unilateral edema of lower extremity: Status: Acute Additional A&P Information # Acute on chronic hypoxic respiratory failure Likely to be multifactorial realted to CHF exacerbation and B/L pleural effusion, currently on 3lpm NC (improving) , home requirement of 2-2.5lpm, states her 02 has come of on several ocassions at night, requests to switch to night time mask instead of nasal canula v/Q scan, Le duplex negative Ct chest with large B/L pleural effusions, with underlying component of consolidation vs atelactasis, however not significantly changed since CT chest from 08/11 CXR with improving effusion with diuresis Discussed with family- would want to hold off on thoracentesis as much as possible, will try to optimize medically for now Leukocytosis has trended down , no current signs of acute infection COVID ag negative on 08/09 and 08/30 overnight oximetry study taken - results show 20 desat episodes total to less than 89%, 28 min desaturation time total, needed to be placed on Bipap at 4 am due to increased work of breathing. Will benefit from Bipap at home. Results faxed over to HOME,, however we have been informed that patient does not have a qualifying diagnosis to approve the BiPAP. We will set her up for an outpatient sleep study at the time of discharge. # Large B/L pleural effusions s/p right thoracentesis on left thoracentesis on 08/15, fluid analysis suggested transudate fluid, likely related to CHF Improving with diuresis currently, continue Lasix 80 mg p.o. twice daily and monitor urine output closely. Repeat chest x-ray tomorrow morning no malignancy on path from 08/18 Gram stain negative from 08/12 and 08/15 resp cx with few mixed upper resp kosta negative bacterial ag panel on 08/10 # Diastolic congestive heart failure exacerbation less likely ACS, troponin 40, last admission in jul noted to be 680 recent NSTEMI, seen by cardiology on 08/20, decided continue medical management since patient has recent history of GI bleed and underlying renal failure which can further be complicated by proceeding with invasive strategy. BNP > 24,000 from 07/2020, LVEF 55%, mild hypokinesis of apical and inferior wallsm moderate AV stenosis change Bumex 1mg iv to lasix 80 mg po BID. ASA 81mg held overnight due to hb ti 7.5 will monitor, FOBT pending Continue Coreg 6.25mg BID # recent h/o GI bleed 2/2 duodenitis/gastritis , start protonix 40mg po BID #Anemia, hemoglobin dropped to 7.5 today. Given that patient is currently presenting with symptomatic CHF exacerbation, will transfuse 1 unit of blood with a target hemoglobin of 8 in a.[facility] patient. c Full code Start diet ,cardiac DVT prophylaxis: SCDs for now while awaiting results of FOBT Attestations Medical Necessity Statement*: transition of iv lasix to po, transfuse blood Coding Level of Care Code Acute Real Estate Attorney for Chg Fwd Diagnoses Hypoxia R09.02 Acute renal failure superimposed on stage 3 chronic kidney disease N17.9; N18.30 Hyperkalemia E87.5 D-dimer, elevated R79.89 Nonhealing ulcer of heel L97.409 Unilateral edema of lower extremity R60.0
[2020-09-02 17:01] LABS: Glucose Point of Care 135 mg/dL (70-110)
[2020-09-02] MEDS: atorvastatin 40 mg Tablet 20 MG PO (18:19)
[2020-09-02 20:31] LABS: Glucose Point of Care 156 mg/dL (70-110)
[2020-09-02] MEDS: citalopram 20 mg Tablet 10 MG PO (20:36)
--- NOTE | 2020-09-02 21:46 | PC.NURSE ---
PT IS RESTING IN BED. PT DENIES PAIN AT THIS TIME. PT STATES THAT SHE WANTS TO TALK WITH INDUSTRIAL EDUCATION TEACHER TOMORROW. PT STATES THAT SHE WANTS TO KNOW IF HER INSURANCE COVERS THIS STUFF. THIS NURSE EXPLAINED THAT THEY DON'T KNOW ANYTHING ABOUT INSURANCE STUFF. PT WAS SATISFIED WITH RESPONSE. WILL CONTINUE TO MONITOR.
[2020-09-03] VITALS (18 sets, daily range): BP systolic 121–155; BP diastolic 46–69; PULSE 51–67; RESP 12–27; TEMP 36.4–37.3; O2SAT 92–100
[2020-09-03] MEDS: carvedilol 6.25 mg Tablet PO (05:15)
[2020-09-03] MEDS: gabapentin 100 mg Capsule 200 MG PO (05:15)
[2020-09-03] MEDS: sodium chloride 0.9% (100 ml) 100 ML (05:33)
--- NOTE | 2020-09-03 05:42 | PC.NURSE ---
NOTICED THAT BLOOD WASN'T TRANSFUSED. VERIFIED WITH DR TO TRANSFUSE PRBC X 1 UNIT. SR. CONSULTANT NURSE STARTED BLOOD. WILL CONTINUE TO MONITOR.
--- NOTE | 2020-09-03 06:44 | PC.NURSE ---
PT IS RESTING IN BED. PT DENIES PAIN AT THIS TIME. WILL CONTINUE TO MONITOR.
[2020-09-03 06:51] LABS: Glucose Point of Care 139 mg/dL (70-110)
[2020-09-03] MEDS: pantoprazole DR 40 mg Tablet PO (08:04)
[2020-09-03] MEDS: FUROsemide 40 mg Tablet 80 MG PO (08:04)
[2020-09-03] MEDS: amlodipine 10 mg Tablet PO (08:04)
[2020-09-03] MEDS: sennosides-docusate Tablet 1 TAB PO (08:05)
[2020-09-03 11:03] LABS: Glucose Point of Care 213 mg/dL (70-110)
[2020-09-03 12:14] LABS: Hematocrit 29.1 % (37.0-47.0); Hemoglobin 9.4 g/dL (11.5-15.3)
--- NOTE | 2020-09-03 12:48 | PM.DCS ---
Discharge Providers Date of Admission: 08/31/20 02:22 Date of Discharge: September 03, 2020 Attending Provider at Admission: Jin Arreaga MD Attending Provider at Discharge: Leora Houston MD Primary Care Provider: Crystal Olivia MD Diagnoses at Discharge Discharge Diagnosis (1) Hypoxia: Status: Acute (2) Acute renal failure superimposed on stage 3 chronic kidney disease: Status: Acute (3) Hyperkalemia: Status: Acute (4) D-dimer, elevated: Status: Acute (5) Nonhealing ulcer of heel: Status: Acute (6) Unilateral edema of lower extremity: Status: Acute (7) Bilateral pleural effusion: Status: Acute (8) Acute exacerbation of CHF (congestive heart failure): Status: Acute Qualifiers: Heart failure type: unspecified Qualified Code(s): I50.9 - Heart failure, unspecified Reason for Visit Reason for Visit: ran out Hospital Course Hospital Course Elizabeth Lima is a 75 year old female who was recently discharged from the hospital after management of CHF exacerbation, patient required mechanical ventilation for worsening shortness of breath 1100 cc transudative drained from the right side and 600 cc from left side, GI bleed returned for admission on 08/30/20 with c/o shortness of breath. Her 02 had fallen off multiple times at home. Hospital course notable as below: # Acute on chronic hypoxic respiratory failure Likely to be multifactorial realted to CHF exacerbation and B/L pleural effusion, currently on 3lpm NC (improving from 6lpm and continuous Bipap on admission) , home requirement of 2-2.5lpm, states her 02 has come of on several ocassions at night, requests to switch to night time mask instead of nasal canula. Oxymask provided at discharge. v/Q scan, Le duplex negative Ct chest with large B/L pleural effusions, with underlying component of consolidation vs atelactasis, however not significantly changed since CT chest from 08/11 CXR with improving effusion with diuresis Discussed with family- would want to hold off on thoracentesis as much as possible, will try to optimize medically. Leukocytosis has trended down , no current signs of acute infection COVID ag negative on 08/09 and 08/30 overnight oximetry study taken - results show 20 desat episodes total to less than 89%, 28 min desaturation time total, needed to be placed on Bipap at night time, will likely benefit from Bipap at home. Results faxed over to home equipment company,, however we have been informed that patient does not have a qualifying diagnosis to approve the BiPAP per insurance. We will set her up for an outpatient sleep study at the time of discharge for further assessment for the same. # Large B/L pleural effusions s/p right thoracentesis on left thoracentesis on 08/15, fluid analysis suggested transudate fluid, likely related to CHF Improving with diuresis currently, Initially received iv Bumex, then changed to Lasix 80 mg p.o. twice daily, currently euvolemic at discharge. no malignancy on path from 08/18 Gram stain negative from 08/12 and 08/15 resp cx with few mixed upper resp kosta negative bacterial ag panel on 08/10 # Diastolic congestive heart failure exacerbation less likely ACS, troponin 40, last admission in jul noted to be 680 recent NSTEMI, seen by cardiology on 08/20, decided continue medical management since patient has recent history of GI bleed and underlying renal failure which can further be complicated by proceeding with invasive strategy. BNP > 24,000 from 07/2020, LVEF 55%, mild hypokinesis of apical and inferior wallsm moderate AV stenosis Resumed ASA 81mg at discharge # recent h/o GI bleed 2/2 duodenitis/gastritis , continue protonix 40mg po BID at discharge #Anemia, hemoglobin dropped to 7.5 during admission. Given that patient is currently presenting with symptomatic CHF exacerbation, She received one unit transfusion PRBC. Repeat Hb after tranfusion at 9.4 Physical Exam Narrative: EXAM NARRATIVE: GEN: Awake, alert and oriented, no acute distress CVS: S1S2 N RS: Rdeuced air entry at B/L lung bases, rest clear to auscultation Abd: Soft, nt/nd , bs+ TITLE INSURANCE AGENT: no focal neuro deficits Urinary Catheter Management^: Mcfarland: Cath Placed During This Visit: yes, but has since been removed by the nurse Reason for Continuing Indwelling Catheter: Decision to DC Catheter Urinary Catheter Date of Insertion: 08/31/20 Urinary Catheter Time of Insertion: 02:25 Date Urinary Catheter Removed: 09/02/20 Time Urinary Catheter Discontinued: 18:00 Discharge Data Data Completed and Pending: Completed Studies During Hospitalization Category Date Time Status CT chest wo con 7 1250 Urgent Cat Scan 08/30/20 22:39 Completed XR chest 1V aung ble [id number] Routine Exams 09/01/20 13:02 Completed XR chest 1V aung ble 38313 Urgent Exams 08/30/20 21:40 Completed NM pul vent and p erfus* 22012 Routi ne Nuc Med 08/31/20 10:54 [place] [address] Routin e Ultrasound 08/31/20 02:22 Completed Pending at discharge Category Date Time Status Blood Culture Sta t Lab 08/30/20 22:33 Results Immunochemical Fe rosie OCB Routine Lab 08/31/20 10:55 Uncollected Leukocyte Reduced RBC Routine Lab 09/02/20 16:29 Results Type and Screen R outine Lab 09/02/20 16:29 Results Labs from last 24 hours 09/03/20 09/03/20 09/03/20 11:59 10:49 06:39 Hgb 9.4 L Hct 29.1 L POC Glucose 213 H 139 H Calcium Blood Type Rho(D) Type Antibody Screen Crossmatch 09/02/20 09/02/20 09/02/20 19:30 16:45 16:29 Hgb Hct POC Glucose 156 H 135 H Calcium Blood Type A Negative Rho(D) Type Negative Antibody Screen Negative Crossmatch See Detail 09/02/20 08/31/20 12:45 04:08 Hgb Hct POC Glucose 146 H Calcium 9.0 Blood Type Rho(D) Type Antibody Screen Crossmatch Vitals: Last Vital Signs Temp 99.1 F 09/03/20 06:54 Pulse 60 09/03/20 08:57 Resp 16 09/03/20 08:57 BP 130/69 09/03/20 07:04 Pulse Ox 96 09/03/20 08:57 Discharge Plan Discharge Patient Disposition: Home Health Service Condition: Stable Prescriptions: New Santyl 250 unit/gram ointment 1 applic topical DAILY Qty: 30 RF: 1 Continued citalopram 10 mg tablet 10 mg PO .HS Qty: 90 RF: 3 gabapentin 100 mg capsule 200 mg PO BID@ RF: 0 amlodipine 10 mg tablet 10 mg PO DAILY Qty: 30 RF: 0 aspirin 81 mg Tablet,Delayed Release (Dr/Ec) 81 mg PO DAILY@06 RF: 0 potassium chloride 20 mEq tablet extended release 20 meq PO DAILY Qty: 30 RF: 4 carvedilol 6.25 mg tablet 6.25 mg PO BID@06,21 RF: 0 glipizide 5 mg Tablet 5 mg PO PRN PRN (Reason: blood sugar) RF: 0 Changed pantoprazole 40 mg Tablet,Delayed Release (Dr/Ec) 40 mg PO BID 30 Days Qty: 60 RF: 4 atorvastatin 10 mg Tablet 20 mg PO QPM Qty: 0 RF: 0 furosemide 40 mg Tablet 80 mg PO BID@,18 30 Days Qty: 60 RF: 3 Discontinued hydralazine 50 mg tablet 50 mg PO TID Qty: 90 RF: 4 Discharge Orders: Discharge Order (Routine); Ordered 09/03/20 Ordered By: Leora Houston Other Ambulatory Orders: DME: Walker (Order) Location: None Selected Ordered By: Leora Houston Sleep Study/Titration (Routine) Timeframe: 2 Weeks Location: None Selected Ordered By: Leora Houston Referrals: Crystal Olivia MD [Primary Care Provider] - 7-10 days Jin Steele MD [Physician] - 2 weeks (hospital discharge follow up for CHF exacerbation ) Discharge Diet: Cardiac and Diabetic Discharge Activity: Resume usual activity and Use walker/crutches as instructed Patient Instructions: Anemia, [place] Diet - Adult, Heart Failure (DC), Chronic Wound Care (DC), CHF Stoplight Discharge Attestations Time Spent in Discharge Care*: greater than 30 min Status at Discharge: Cognitive status at discharge: cognitively intact, Behavioral status at discharge: cooperative, Quality Metrics Clinical Quality Measures During this hospital stay, did patient experience: None Coding Level of Care Code Acute Aluminum Molder for Desting Fwd Diagnoses Hypoxia R09.02 Acute renal failure superimposed on stage 3 chronic kidney disease N17.9; N18.30 Hyperkalemia E87.5 D-dimer, elevated R79.89 Nonhealing ulcer of heel L97.409 Unilateral edema of lower extremity R60.0 Bilateral pleural effusion J90 Acute exacerbation of CHF (congestive heart failure) I50.9 Heart failure type: unspecified
--- NOTE | 2020-09-03 14:01 | PC.NURSE ---
pt states wound care performed by shift commander staff.
--- NOTE | 2020-09-03 14:15 | PC.NURSE ---
pt not discharged on ariane/arb due to renal status (ckd)
--- NOTE | 2020-09-03 16:14 | PC.NURSE ---
discharge instructions given and explained to pt and pt's [facility].both verb understanding of instructions.[place] beds [place] [facility] [place]discharged via w/c to exit at 1540.[facility] to drive pt home.
== END 2020-09-03 15:40 | disposition home health service (06) | DRG 280 ==
LOC: ER 22:41 → CSU 23:53 → ICU 08-31 06:07 → CSU 09-02 16:18
PROVIDERS: Admitting Provider Internal Medicine; Emergency Provider Nurse Practitioner Family; PCP Family Medicine; Visit Provider Student in an Organized Health Care Education/Training Program
DX: I13.0 Hypertensive heart and chronic kidney disease with heart failure and stage 1 through stage 4 chronic kidney disease, or unspecified chronic kidney disease (principal); I21.4 Non-ST elevation (NSTEMI) myocardial infarction; J96.21 Acute and chronic respiratory failure with hypoxia; I50.33 Acute on chronic diastolic (congestive) heart failure; L97.428 Non-pressure chronic ulcer of left heel and midfoot with other specified severity; N17.9 Acute kidney failure, unspecified; J90 Pleural effusion, not elsewhere classified; N18.30 Chronic kidney disease, stage 3 unspecified; E11.22 Type 2 diabetes mellitus with diabetic chronic kidney disease; E87.5 Hyperkalemia; D63.1 Anemia in chronic kidney disease; E11.51 Type 2 diabetes mellitus with diabetic peripheral angiopathy without gangrene; E11.621 Type 2 diabetes mellitus with foot ulcer; E78.5 Hyperlipidemia, unspecified; Z87.01 Personal history of pneumonia (recurrent); I25.2 Old myocardial infarction; Z79.82 Long term (current) use of aspirin; Z79.84 Long term (current) use of oral hypoglycemic drugs
CPT/HCPCS: 12345; 36415; 36416; 36430; 36600; 51702; 71045; 71250; 78014; 80048; 80053; 82607; 82728; 82746; 82803; 82805; 82962; 83036; 83540; 83550; 83605; 83735; 83880; 84145; 84484; 85014; 85018; 85025; 85378; 85610; 85730; 86850; 86900; 86920; 87040; 87426; 93971; 94640; 94660; 96372; 99283; A9540; A9567; J0610; J1815; J1940; J2060; J2405; J3475; J3490; P9016

== ENCOUNTER → 2020-09-08 15:30 | Outpatient (BNVA) | payer MEDICARE, SELFPAY | PROVIDERS: PCP Family Medicine; Visit Provider Nurse Practitioner Family | DX: I50.9 Heart failure, unspecified (principal); J96.01 Acute respiratory failure with hypoxia; J96.02 Acute respiratory failure with hypercapnia | CPT/HCPCS: 80048; 83880 ==

== ENCOUNTER 2020-09-23 02:27 | Inpatient (IN) | payer MEDICARE, SELFPAY ==
[2020-09-23] VITALS (25 sets, daily range): BP systolic 128–160; BP diastolic 55–105; PULSE 62–98; RESP 14–33; TEMP 37.1–37.6; O2SAT 78–100; BMI 26.1
--- NOTE | 2020-09-23 02:30 | ECG_ITS ---
[facility] Test Date: 2020-09-23 Pat Name: Elizabeth Lima Department: Room: 278 Gender: Female Load Dispatcher Local: : 1945 Requested By: Jorge A Gonsalez Order Number: [id number] Jose Cruz MD: Paul Freitas M.D. Measurements Intervals [place] Rate: 91 P: AK: QRS: -44 QRSD: 122 T: 89 QT: 396 QTc: 489 Interpretive Statements SINUS RHYTHM LEFT AXIS DEVIATION [QRS AXIS < -30] POSSIBLE RIGHT VENTRICULAR CONDUCTION DELAY [RSR (QR) IN V1/V2] ST DEPRESSION, CONSIDER SUBENDOCARDIAL INJURY [0.1+ mV ST DEPRESSION] Compared to ECG 08/09/2020 23:48:09 Left-axis deviation now present Left ventricular hypertrophy no longer present ST (T wave) deviation still present Electronically Signed On 09-24-2020 16:53:11 VENTURE CAPITAL ANALYST by Paul Freitas M.D. [email or web address]
--- NOTE | 2020-09-23 02:30 | XR_ITS ---
WS: [id number] PORTABLE CHEST HISTORY: sob COMPARISON: 09/01/2020 Lung volumes are decreased. Moderate pulmonary congestion and fluid overload. Increasing consolidatio n throughout the mid and lower RIGHT lung. Small RIGHT pleural effusion. Cardiac size: Mildly enlarged cardiac silhouette. Mediastinum/Aorta: Mild atherosclerosis aorta. Bones are osteopenic. XR/XR chest 1V portable [id number] IMPRESSION: 1. Moderate CHF and fluid overload. 2. Small RIGHT pleural effusion. 3. Increasing airspace disease over the mid and lower RIGHT lung. May be atele ctasis associated with the pleural effusion. Pneumonia may appear similar.
--- NOTE | 2020-09-23 02:32 | W.ED.SOB ---
HPI - SOB/Dyspnea General: Chief Complaint: Shortness of Breath/Dyspnea Stated Complaint: SOB Time Seen by Provider: 09/23/20 02:27 Source: patient Mode of arrival: ambulatory Limitations: no limitations History of Present Illness: HPI Narrative: 75-year-old female with a history of CHF, COPD states she had increasing shortness of breath at night. She is on 3 L at baseline currently is on 5 L and is 78%. Patient is able to speak in 2-4 word sentences and is in a moderate distress. Denies any worsening proving factors. She has had a cough. Denies any fever. MD elicited complaint: shortness of breath Pertinent past history: COPD Onset (ago): hour(s) Associated symptoms: Deny abdominal pain, chest pain, fever(s), nausea or vomiting Review of Systems Const: Denies: fever(s), chills, body aches or change in appetite Eyes: Denies: blurry vision or eye discomfort ENMT: Denies: throat pain or dental pain Card: Denies: chest pain Resp: Reports: dyspnea and wheezing GI: Denies: abdominal pain, nausea, vomiting or diarrhea : Denies: dysuria Musc: Denies: neck pain or back pain Skin/Breast: Denies: rash Neuro: Denies: headache(s) Psych: Denies: depression Anuj/Lymph: Denies: easy bruising All/Imm: Denies: urticaria PFSH ED PFSH: Medical History Acute respiratory failure Anemia CKD (chronic kidney disease) stage 3, GFR 30-59 ml/min Critical lower limb ischemia Diabetes mellitus Diabetic ulcer of heel Essential hypertension Hematemesis Hyperlipidemia NSTEMI (non-ST elevated myocardial infarction) Peripheral arterial disease Peripheral vascular disease Pneumonia Pulmonary edema Recent non-ST elevation myocardial infarction Surgical History Surgical history unknown Hysterectomy documented previously, but patient still appears to have her uterus on her CAT scan Family History Other Cancer Rheumatoid arthritis Social History Smoking and tobacco status: never smoked Alcohol intake: never Physical Exam Const: COMMON NORMALS: no acute distress, patient oriented x3 and healthy appearing HENMT: COMMON NORMALS: normocephalic and atraumatic HEAD & SCALP: normocephalic and atraumatic Eye: COMMON NORMALS: Equal, round and reactive pupils present and EOMs intact bilaterally PUPIL: Yes Equal, round and reactive pupils present Neck/C-Spine: COMMON NORMALS: full ROM and supple Chest: COMMONS NORMALS: normal inspection of the chest and normal palpation of entire chest wall Resp: EFFORT & INSPECTION: Yes tachypneic and Yes respiratory distress AUSCULTATION: wheezes Cardio: COMMON NORMALS: regular rate, regular rhythm and No murmurs present (Cardio) RATE: regular rate RHYTHM: regular rhythm GI: COMMON NORMALS: Normal to inspection, nondistended, normoactive bowel sounds present, Soft to palpation, non-tender and no masses PALPATION: Yes Soft to palpation Extremity: COMMON NORMALS: normal to inspection and full ROM Neuro: COMMON NORMALS: patient oriented x3, moves all extremities and no focal motor deficits Psych: COMMON NORMALS: mental status grossly normal, Normal thought process present and cooperative THOUGHT PROCESS: Normal thought process present Skin: COMMON NORMALS: no rashes or lesions noted and no wounds GENERAL SKIN EXAM: no rashes or lesions noted Course Vital Signs: Vital signs: Vital Signs Temperature 99.1 F 09/23/20 02:31 Pulse Rate 72 09/23/20 04:15 Respiratory Rate 14 09/23/20 04:15 Blood Pressure 137/88 09/23/20 04:15 Pulse Oximetry 96 09/23/20 04:15 MDM - SOB/Dyspnea MDM Narrative: Medical decision making narrative: Patient presents here with shortness of breath and was in distress when she arrived. Patient is much improved here on BiPAP. She does have bilateral pleural effusions likely pneumonia with her white blood cell count. Patient started on IV antibiotics. Patient also has a compression fracture of L2 that has no complications. I spoke to the hospitalist and will admit at this time. Lab Data: Labs: Lab Results 09/23/20 09/23/20 09/23/20 Range/Units 02:37 02:37 02:37 WBC 22.2 H (4.0-10.0) 10^3/ uL RBC 4.14 (4.1-5.3) 10^6/u L Hgb 11.7 (11.5-15.3) g/dL Hct 34.9 L (37.0-47.0) % MCV 84.3 (81-99) fL MCH 28.3 (28.0-34.0) pg MCHC 33.5 (30.0-36.0) g/dL RDW 14.4 (12.1-15.1) % Plt Count 426 H (130-400) 10^3/c mm MPV 10.0 (7.4-10.4) fL Neut % (Auto) 89.2 % Lymph % (Auto) 4.3 % Meriwether % (Auto) 2.5 % Eos % (Auto) 2.3 % Baso % (Auto) 0.8 % Neut # (Auto) 19.77 H (1.8-7.7) 10^3/u L Lymph # (Auto) 1.0 (0.8-4.8) 10^3/u L Meriwether # (Auto) 0.6 (0.2-0.9) 10^3/u L Eos # (Auto) 0.5 (0.0-0.8) 10^3/u L Baso # (Auto) 0.2 H (0.0-0.1) 10^3/u L Nucleated RBC % (a uto) 0 % Nucleated RBCs # 0.0 /100WBC PT 13.60 (12.1-14.9) SECO NDS INR 1.00 (0.8-1.2) Specimen Type Sample Site ABG pH (7.35-7.45) ABG pCO2 (35-45) mmHg ABG pO2 (80.0-100.0) mmH g ABG HCO3 (22-26) mmol/L ABG Base Excess (-2.0-2.0) mmol/ L Jaren Test Hematocrit (37-47) % Hgb O2 Saturation (95-100) % Carboxyhemoglobin (0.4-20.1) %THgb Methemoglobin (0.4-1.5) % Total Hemoglobin (12-16) g/dL O2 Delivery Device FiO2 % Master Merchandiser ID Sodium 123 L (136-145) mmol/L Potassium 4.2 (3.5-5.1) mmol/L Chloride 77 L (98-107) mmol/L Carbon Dioxide 31 H (22-29) mmol/L Anion Gap 19.2 H (5-19) BUN 39 H (8-23) mg/dL Creatinine 2.0 H (0.5-0.9) mg/dL GFR Calculation Not Reportable Glucose 204 H (65-115) mg/dL Calculated Osmolal ity 271 L (285-295) mOsm/k g Calcium 9.5 (8.5-10.5) mg/dL Total Bilirubin 0.8 (0.15-1.2) mg/dL AST 28 (0-32) U/L ALT 16 (0-33) U/L Alkaline Phosphata se 111 H (35-105) IU/L NT-Pro-B Natriuret Pep 78976 H (0-450) pg/mL Total Protein 8.7 (6.6-8.7) g/dL Albumin 4.0 (3.5-5.2) g/dL Globulin 4.7 H (1.3-4.6) g/dL Influenza Type A A g (Negative) Influenza Type B A g (Negative) SARS-CoV-2 Ag (Rap id) (Negative) 09/23/20 09/23/20 09/23/20 Range/Units 02:38 02:46 02:47 WBC (4.0-10.0) 10^3/ uL RBC (4.1-5.3) 10^6/u L Hgb (11.5-15.3) g/dL Hct (37.0-47.0) % MCV (81-99) fL MCH (28.0-34.0) pg MCHC (30.0-36.0) g/dL RDW (12.1-15.1) % Plt Count (130-400) 10^3/c mm MPV (7.4-10.4) fL Neut % (Auto) % Lymph % (Auto) % Meriwether % (Auto) % Eos % (Auto) % Baso % (Auto) % Neut # (Auto) (1.8-7.7) 10^3/u L Lymph # (Auto) (0.8-4.8) 10^3/u L Meriwether # (Auto) (0.2-0.9) 10^3/u L Eos # (Auto) (0.0-0.8) 10^3/u L Baso # (Auto) (0.0-0.1) 10^3/u L Nucleated RBC % (a uto) % Nucleated RBCs # /100WBC PT (12.1-14.9) SECO NDS INR (0.8-1.2) Specimen Type Arterial Sample Site Radial, right ABG pH 7.45 (7.35-7.45) ABG pCO2 49.2 H (35-45) mmHg ABG pO2 192.0 H (80.0-100.0) mmH g ABG HCO3 34.1 H (22-26) mmol/L ABG Base Excess 8.9 H (-2.0-2.0) mmol/ L Jaren Test Pos Hematocrit 32.7 L (37-47) % Hgb O2 Saturation 97.9 (95-100) % Carboxyhemoglobin 1.2 (0.4-20.1) %THgb Methemoglobin 0.9 (0.4-1.5) % Total Hemoglobin 10.7 L (12-16) g/dL O2 Delivery Device Bipap FiO2 80.0 % Master Merchandiser ID Harkr Sodium (136-145) mmol/L Potassium (3.5-5.1) mmol/L Chloride (98-107) mmol/L Carbon Dioxide (22-29) mmol/L Anion Gap (5-19) BUN (8-23) mg/dL Creatinine (0.5-0.9) mg/dL GFR Calculation Glucose (65-115) mg/dL Calculated Osmolal ity (285-295) mOsm/k g Calcium (8.5-10.5) mg/dL Total Bilirubin (0.15-1.2) mg/dL AST (0-32) U/L ALT (0-33) U/L Alkaline Phosphata se (35-105) IU/L NT-Pro-B Natriuret Pep (0-450) pg/mL Total Protein (6.6-8.7) g/dL Albumin (3.5-5.2) g/dL Globulin (1.3-4.6) g/dL Influenza Type A A g Negative (Negative) Influenza Type B A g Negative (Negative) SARS-CoV-2 Ag (Rap id) Negative (Negative) Imaging Data^: CT Chest: Attestation: I personally reviewed and interpreted this imaging study as follows: Radiologist's impression: [facility] [place] [address] CT Scan Report Signed Patient: Elizabeth Lima Unit #: [id number] : 1945 Age/Sex: 75 / F ADM Date: 09/23/20 Loc: ER Room/Bed: Attending Dr: Ordering Provider/Ordering MD: Jorge A Gonsalez MD Date of Service: 09/23/20 Procedure(s): CT chest wo con [id number] Accession Number(s): [id number] Report Number: [id number] PROCEDURE INFORMATION: Exam: CT Chest Without Contrast; Diagnostic Exam date and time: 09/23/2020 3:29 AM Age: 75 years old Clinical indication: Shortness of breath; Patient HX: SOB and hypoxia. History of copd and chf. TECHNIQUE: Imaging protocol: Diagnostic computed tomography of the chest without contrast. Radiation optimization: All CT scans at this facility use at least one of these dose optimization techniques: automated exposure control; mA and/or kV adjustment per patient size (includes targeted exams where dose is matched to clinical indication); or iterative reconstruction. COMPARISON: CT chest wo con [id number] 08/30/2020 10:50 PM RADIATION DOSE METRICS: Total DLP (mGy-cm): 544.27 FINDINGS: Lungs: Dependent airspace disease bilaterally suspected to represent passive atelectasis relatively prominent in the right lower lobe and moderate in left lower lobe. Pleural spaces: Bilateral pleural effusions moderate to large on the right and moderate on the left. Heart: Mitral annular calcifications. Relatively dense aortic valvular calcifications are noted. Dense coronary arterial calcifications are noted. Aorta: Aortic calcifications are noted. No findings of aneurysm or mediastinal hemorrhage. Lymph nodes: Mild prominence of mediastinal lymph nodes. Bones/joints: No acute fracture. Soft tissues: Unremarkable. CT/CT chest wo con [id number] IMPRESSION: Bilateral pleural effusions. Relatively prominent passive atelectasis in the right lower lobe and more moderate passive atelectasis left lower lobe. ct lumbar: Radiologist's impression: [place] [address] CT Scan Report Signed Patient: Elizabeth Lima Unit #: [id number] : 1945 Age/Sex: 75 / F ADM Date: 09/23/20 Loc: ER Room/Bed: Attending Dr: Ordering Provider/Ordering MD: Jorge A Gonsalez MD Date of Service: 09/23/20 Procedure(s): CT lumbar spine wo con* [id number] Accession Number(s): [id number] Report Number: [id number] PROCEDURE INFORMATION: Exam: CT Lumbar Spine Without Contrast Exam date and time: 09/23/2020 3:56 AM Age: 75 years old Clinical indication: Injury or trauma; Blunt trauma (contusions or hematomas); Patient HX: Fall yesterday. C/O back pain. TECHNIQUE: Imaging protocol: Computed tomography images of the lumbar spine without contrast. Radiation optimization: All CT scans at this facility use at least one of these dose optimization techniques: automated exposure control; mA and/or kV adjustment per patient size (includes targeted exams where dose is matched to clinical indication); or iterative reconstruction. COMPARISON: No relevant prior studies available. RADIATION DOSE METRICS: Total DLP (mGy-cm): 1988.95 FINDINGS: Vertebrae: Acute compression of L2 noted with up to 50% loss of vertebral body height; no retropulsion. Facet arthrosis bilaterally L4-L5 and L5-S1. Discs/Spinal canal/Neural foramina: See Vertebrae finding. Soft tissues: Unremarkable. CT/CT lumbar spine wo con* [id number] IMPRESSION: Compression fracture of L2. EKG Data^: EKG 1: Attestation: I personally reviewed and interpreted this EKG as follows: EKG Interpretation Date: 09/23/20 EKG interpretation time: 02:40 Interpretation: afib hr [address] or t wave abnormalities qrs 122 qtc 445 Critical Care Time Critical Care Time: Critical Care Time: Yes Total Critical Care Time: 35 Attestation: This case had a high probability of a clinically significant, sudden, or life threatening deterioration of this patient's condition which required my full and direct attention, intervention and personal management. 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
[2020-09-23 02:48] LABS: Basophils # 0.2 10^3/uL (0.0-0.1); Basophils % 0.8 %; Eosinophils # 0.5 10^3/uL (0.0-0.8); Eosinophils % 2.3 %; Hematocrit 34.9 % (37.0-47.0); Hemoglobin 11.7 g/dL (11.5-15.3); Lymphocytes % 4.3 %; Mean Corpuscular HGB Conc 33.5 g/dL (30.0-36.0); Mean Corpuscular Hemoglobin 28.3 pg (28.0-34.0); Mean Corpuscular Volume 84.3 fL (81-99); Monocytes # 0.6 10^3/uL (0.2-0.9); Monocytes % 2.5 %; Neutrophils # 19.77 10^3/uL (1.8-7.7); Neutrophils % 89.2 %; Nucleated Red Blood Cells % 0 %; Platelet Count 426 10^3/cmm (130-400); Red Blood Count 4.14 10^6/uL (4.1-5.3); Red Cell Distribution Width 14.4 % (12.1-15.1); White Blood Count 22.2 10^3/uL (4.0-10.0)
[2020-09-23 02:49] LABS: ABG PCO2 49.2 mmHg (35-45); ABG PH Result 7.45 (7.35-7.45); Arterial Blood Gas Hematocrit 32.7 % (37-47); Base Excess ABG 8.9 mmol/L (-2.0-2.0); Blood Gas Allen Test Pos; Blood Gas Operator Identificat HARKR; Blood Gas Sample Site Radial, right; Blood Gas Sample Type Arterial; Carboxyhemoglobin 1.2 %THgb (0.4-20.1); HCO3 ABG 34.1 mmol/L (22-26); HGB O2 Sat 97.9 % (95-100); Methemoglobin 0.9 % (0.4-1.5); Oxygen Device BIPAP; Total Hemoglobin 10.7 g/dL (12-16)
--- NOTE | 2020-09-23 02:52 | CTR_ITS ---
PROCEDURE INFORMATION: Exam: CT Chest Without Contrast; Diagnostic Exam date and time: 09/23/2020 3:29 AM Age: 75 years old Clinical indication: Shortness of breath; Patient HX: SOB and hypoxia. History of copd and chf. TECHNIQUE: Imaging protocol: Diagnostic computed tomography of the chest without contrast. Radiation optimization: All CT scans at this facility use at least one of these dose optimization techniques: automated exposure control; mA and/or kV adjustment per patient size (includes targeted exams where dose is matched to clinical indication); or iterative reconstruction. COMPARISON: CT chest wo con [id number] 08/30/2020 10:50 PM RADIATION DOSE METRICS: Total DLP (mGy-cm): 544.27 FINDINGS: Lungs: Dependent airspace disease bilaterally suspected to represent passive atelectasis relatively prominent in the right lower lobe and moderate in left lower lobe. Pleural spaces: Bilateral pleural effusions moderate to large on the right and moderate on the left. Heart: Mitral annular calcifications. Relatively dense aortic valvular calcifications are noted. Dense coronary arterial calcifications are noted. Aorta: Aortic calcifications are noted. No findings of aneurysm or mediastinal hemorrhage. Lymph nodes: Mild prominence of mediastinal lymph nodes. Bones/joints: No acute fracture. Soft tissues: Unremarkable. CT/CT chest wo con [id number] IMPRESSION: Bilateral pleural effusions. Relatively prominent passive atelectasis in the right lower lobe and more moderate passive atelectasis left lower lobe. Radiation Dose CTDIVOL = (mGy): DLP = 544.27 (mGy-cm)
--- NOTE | 2020-09-23 02:55 | P.HP_ITS ---
Providers/Chief Complaint Primary Care Provider: Crystal Olivia MD Chief Complaint: SOB History of Present Illness Elizabeth Lima is a 75 year old female who has had multiple admissions in the hospital secondary to CHF exacerbation, required mechanical ventilation in the past & thoracentesis(600 cc from left and 1100 cc from right), pleural fluid was transudative in nature secondary to CHF exacerbation, she was discharged on 09/03/2020 on Lasix 80 mg twice a day, presented today with chief complaint of respiratory distress. Patient is stating that she has been getting more short of breath despite taking her Lasix, she has not noticed any fever any productive cough, nausea, vomiting diarrhea dysuria or chest pain. She has been gaining weight as well, she is endorsing orthopnea and PND. Yesterday she had a mechanical fall which she is attributing to her shoe. She decided to come to the hospital today because of worsening shortness of breath. When she was brought in by EMS she had increased work of breathing, at home she uses 3 L but today she was saturating 78% on 5 L, had some conversational dyspnea, for which she was put on BiPAP, blood gas revealed normal pH, she was awake and alert however tachypneic, leukocytosis evident on CBC, hemoglobin stable, BMP revealed hyponatremia and high BNP consistent with pulmonary edema and CHF presentation, CT chest revealed bilateral pleural effusion, creatinine at baseline, BNP 26,000, Covid antigen negative, lumbar spine CT scan was done because of fall and back pain which revealed L2 fracture, in the ER she received vancomycin and Zosyn however CT scan is not showing any new infiltrates, consolidation. Patient does not have any signs of spinal cord injury, EKG is revealing atrial fibrillation Review of Systems 2 Const: Reports: fatigue and malaise Eyes: Denies: change in vision ENMT: Denies: throat pain Card: Reports: irregular heart rhythm, swelling of feet/ankles, dyspnea on exertion and orthopnea Resp: Reports: dyspnea GI: Denies: abdominal pain : Denies: flank pain Musc: Denies: neck pain Skin/Breast: Reports: skin tenderness, non-healing lesions and lesions Neuro: Denies: headache(s) Psych: Denies: anxiety Endo: Denies: polyuria Anuj/Lymph: Denies: easy bruising All/Imm: Denies: urticaria Medications/Allergies Home Medications Medication Instructions Recorded Confirmed Last Taken Type gabapentin 200 mg PO BID@07/23/20 09/23/20 08/30/20 History amlodipine 10 mg PO DAILY #30 tab 08/05/20 09/23/20 08/30/20 Rx aspirin 81 mg PO DAILY@06 08/10/20 09/23/20 08/30/20 History potassium chloride 20 meq PO DAILY #30 tab 08/20/20 09/23/20 08/30/20 Rx citalopram 10 mg tablet 10 mg PO .HS #90 tab 08/26/20 09/23/20 Unknown Rx carvedilol 6.25 mg PO BID@08/31/20 09/23/20 08/30/20 History glipizide 5 mg PO PRN PRN 08/31/20 09/23/20 Unknown History atorvastatin 20 mg PO QPM #0 tab 09/03/20 09/23/20 08/30/20 Rx collagenase clostridium histo. 1 applic TOPICAL DAILY #30 g 09/03/20 09/08/20 Unknown Rx [Santyl] furosemide 80 mg PO BID@,18 30 Days #60 tab 09/03/20 09/23/20 Unknown Rx pantoprazole 40 mg PO BID 30 Days #60 tab 09/03/20 09/23/20 Unknown Rx metolazone 2.5 mg tablet 2.5 mg PO DAILY #30 tab 09/10/20 09/10/20 Unknown Rx Allergies Allergy/AdvReac Type Severity Reaction Status Date / Time diclofenac [From Voltaren] Allergy Intermediate Wound Verified 09/23/20 02:39 metformin Allergy ADR-Diarrhe Verified 09/23/20 02:39 a mold Allergy Unknown Verified 09/23/20 02:39 FLU SHOT Allergy Unknown Uncoded 09/23/20 02:39 PFSH Acute PFSH: Medical History Acute respiratory failure Anemia CKD (chronic kidney disease) stage 3, GFR 30-59 ml/min Critical lower limb ischemia Diabetes mellitus Diabetic ulcer of heel Essential hypertension Hematemesis Hyperlipidemia NSTEMI (non-ST elevated myocardial infarction) Peripheral arterial disease Peripheral vascular disease Pneumonia Pulmonary edema Recent non-ST elevation myocardial infarction Surgical History Surgical history unknown Hysterectomy documented previously, but patient still appears to have her uterus on her CAT scan Family History Other Cancer Rheumatoid arthritis Social History Smoking and tobacco status: never smoked Alcohol intake: never Vitals/I&O/Wt Last Vital Signs Temp 99.1 F 09/23/20 02:31 Pulse 90 09/23/20 02:40 Resp 21 H 09/23/20 02:40 BP 145/74 09/23/20 02:40 Pulse Ox 100 09/23/20 02:40 Weight last 48 hrs Weight 56.699 kg Physical Exam Narrative: EXAM NARRATIVE: Elderly female Very pleasant to communicate Currently on BiPAP settings 18/8 FiO2 50% saturating well 97% no acute chest pain or respiratory distress her work of breathing has decreased Not complaining of active chest pain Variable S1-S2 Bilateral assisted breath sounds Clinical presentation of CHF with fluid overload and bilateral lower extremity edema 1+ Right heel nonhealing ulcer currently has a pillow for offloading no active drainage, black eschar Abdomen soft no tenderness No cellulitis, joint swelling, cyanosis of lower extremity Appropriate mood and affect No neurological deficit alert oriented x3 GCS 15 Data : 09/23/20 02:37 09/23/20 02:37 Micro: Microbiology 09/23/20 02:37 Blood Culture - Preliminary Blood SPECIMEN COLLECTED A&P Assessment and plan (1) Acute exacerbation of CHF (congestive heart failure): Diastolic congestive heart failure exacerbation For recurrent bilateral pleural effusion she will benefit from thoracentesis, Last pleural fluid analysis was transudate I do believe she will better be served with Bumex instead of Lasix No active chest pain no signs of ischemia or infarction on EKG Status: Acute Qualifiers: Heart failure type: unspecified Qualified Code(s): I50.9 - Heart failure, unspecified (2) CKD (chronic kidney disease) stage 3, GFR 30-59 ml/min: At baseline no exacerbation Status: Acute Qualifiers: Chronic kidney disease stage 3 subtype: stage 3b (GFR 30-44) Qualified Code(s): N18.32 - Chronic kidney disease, stage 3b (3) Hyponatremia: Hypervolemic hyponatremia Patient mucosal membranes are dry however she does have mild signs of CHF exacerbation Anticipating improvement with diuresis No acute neurological changes noted Target sodium level correction 6 mEq in 24 hours Status: Acute Additional A&P Information COPD without acute exacerbation, patient's increased work of breathing was secondary to CHF and bilateral pleural effusion currently doing well on BiPAP, I would not continue her antibiotics I do not see any infiltrate or signs of pneumonia on CT chest, Cardiac diet DVT prophylaxis: SCDs I would avoid anticoagulation in case she will go for thoracentesis today Goals of care: Full code Attestations Medical Necessity Statement*: Anticipating discharge in less than 48 hours currently need BiPAP for respiratory distress for CHF exacerbation Time Spent in Patient Care: (>than 50% of time spent in counselling and/or direct pt care on unit) . 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
[2020-09-23] MEDS: piperacillin-tazobactam 3.375 GM in sodium chloride 0.9% (plus) 50 ML IV (03:08)
[2020-09-23] MEDS: vancomycin 1,000 MG in sodium chloride 0.9% 250 ML 250 MG IV (03:11)
[2020-09-23 03:23] LABS: Alanine Aminotransferase 16 U/L (0-33); Alkaline Phosphatase 111 IU/L (35-105); Anion Gap 19.2 (5-19); Aspartate Amino Transferase 28 U/L (0-32); Blood Urea Nitrogen 39 mg/dL (8-23); Calcium 9.5 mg/dL (8.5-10.5); Carbon Dioxide 31 mmol/L (22-29); Chloride 77 mmol/L (98-107); Globulin 4.7 g/dL (1.3-4.6); Glucose 204 mg/dL (65-115); Osmolality Calculated 271 mOsm/kg (285-295); Potassium 4.2 mmol/L (3.5-5.1); Sodium 123 mmol/L (136-145); Total Bilirubin 0.8 mg/dL (0.15-1.2); Total Protein 8.7 g/dL (6.6-8.7)
[2020-09-23 03:37] LABS: Influenza A by IFA Negative (Negative); Influenza B by IFA Negative (Negative)
[2020-09-23 03:37] LABS: SARS Covid-2 Antigen Negative (Negative)
--- NOTE | 2020-09-23 03:49 | CTR_ITS ---
PROCEDURE INFORMATION: Exam: CT Lumbar Spine Without Contrast Exam date and time: 09/23/2020 3:56 AM Age: 75 years old Clinical indication: Injury or trauma; Blunt trauma (contusions or hematomas); Patient HX: Fall yesterday. C/O back pain. TECHNIQUE: Imaging protocol: Computed tomography images of the lumbar spine without contrast. Radiation optimization: All CT scans at this facility use at least one of these dose optimization techniques: automated exposure control; mA and/or kV adjustment per patient size (includes targeted exams where dose is matched to clinical indication); or iterative reconstruction. COMPARISON: No relevant prior studies available. RADIATION DOSE METRICS: Total DLP (mGy-cm): 1987. FINDINGS: Vertebrae: Acute compression of L2 noted with up to 50% loss of vertebral body height; no retropulsion. Facet arthrosis bilaterally L4-L5 and L5-S1. Discs/Spinal canal/Neural foramina: See Vertebrae finding. Soft tissues: Unremarkable. CT/CT lumbar spine wo con* [id number] IMPRESSION: Compression fracture of L2. Radiation Dose CTDIVOL = (mGy): DLP = 1988.95 (mGy-cm)
--- NOTE | 2020-09-23 05:56 | US_ITS ---
WS: [id number] ULTRASOUND-GUIDED THORACENTESIS, RIGHT, diagnostic and therapeutic. HISTORY: B/L worsening PL effusion Procedure, risks, and complications were explained to the patient. With the patient in an upright pos ition, the skin over the RIGHT posterior thorax was cleansed with ChloraPrep and anesthetized with 1% buffered lidocaine. A 5 Lao Yueh needle is inserted into the pleural fluid without complication. Approximately 1000 cc of clear pleural fluid is removed without difficulty. Pleural fluid collected for analysis as requested. / thoracentesis [id number] IMPRESSION: 1. RIGHT thoracentesis yielding 1000 cc of fluid. 2. Chest radiograph to follow to evaluate for pneumothorax. 3. Pleural fluid collected for analysis as requested.
--- NOTE | 2020-09-23 07:31 | PC.NURSE ---
Pt arrived to room 278-2 via ER Carrier. Pt was alert and oriented and answering questions appropriately. Pt was slightly lethargic however was easily aroused. At this time I attempted to get the patient to take her 81mg ASA po and she was way more lethargic and extremely difficult to arouse. She is still currently on the bi-pap. Pt will open her eyes but will not respond and she then closes them again. She did follow one command and smiled for me however was still not as alert as she previously was.
[2020-09-23 07:48] LABS: Procalcitonin 0.19 ng/mL (0-0.5)
[2020-09-23 07:59] LABS: Lactate Dehydrogenase 456 U/L (135-214)
[2020-09-23] MEDS: bumetanide 0.25 mg/mL SDV 10 mL 2 MG IV ×2 (08:36→21:21)
[2020-09-23] MEDS: ipratropium-albuterol 3 mL Neb INHALATION ×4 (08:44→21:01)
[2020-09-23 09:07] LABS: ABG PCO2 51.6 mmHg (35-45); ABG PH Result 7.46 (7.35-7.45); Arterial Blood Gas Hematocrit 30.5 % (37-47); Base Excess ABG 11.1 mmol/L (-2.0-2.0); Blood Gas Operator Identificat glc; Blood Gas Sample Site Brachial, right; Blood Gas Sample Type Arterial; HCO3 ABG 36.4 mmol/L (22-26); Oxygen Device BIPAP; PO2 ABG 77.7 mmHg (80.0-100.0)
[2020-09-23 09:23] LABS: Add Urine Culture? No; Add Urine Microscopic? YES; Bacteria Urine 3+ /hpf; Bilirubin Urine Neg (Negative); Blood Urine Neg (Negative); Glucose Urine UA Norm (Normal); Ketones Urine Negative (Negative); Leukocyte Esterase Urine Negative (Negative); Nitrate Urine Negative (Negative); Protein Urine 1+ (Negative); Squamous Epithelial Cell Urine 15-25 /hpf (0-5); Urine Appearance SL Hazy (CLEAR); Urine Color Yellow (Yellow); Urobilinogen Urine Norm (Negative); WBC Urine 0-4 /hpf (0-5); pH Urine 5 (5-7)
--- NOTE | 2020-09-23 09:50 | PC.CHAP ---
Pastoral Care Encounter/Spiritual Assessment Type of Contact [] Declined bearing inspector visit [] Patient/Family/Request visit [] Outpatient visit [] Follow-up visit [] Physician referral [] Code/Alert [x] Routine visit [] Staff referral [] Actively dying [x] Patient sleeping [] Family support [] [] Out of room [] Palliative care [] [] Receiving care in room [] Pre-surgical visit [] Trauma [] Long length of stay [] ICU visit [] Other: Relational/Emotional Strength [] Patient feels connected with others/family/visitors/staff [] Distress [] Loneliness/isolation [] Abandonment Spirituality of Patient [] Person of Niyah [] Attends Taoist of their Niyah [] Believes in Prayer [] Reads Bible or Restoration materials [] There are Spiritual issues to be addressed Key Operator Interventions [] Prayer [] Active listening [] Non-anxious presence [] Spiritual/emotional support [] Crisis/trauma care [] Spiritual counseling [] Bereavement support [] Provided bereavement packet [] Provided Bible/devotional materials [] Provided toy/stuffed animal, coloring book to patient or family member [] Provided Communion [] Anointing/[place] [] Salvation [] Completed spiritual assessment [] Other: Impact on Illness or Injury [] Angry [] Fearful [] Anxious [] Often cries [] Exhaustion [] Unable to work [] Unable to attend hindu [] Unable to walk/stand [] Unable to read [] Unable to drive [] Unable to eat/drink [] Unable to sleep [] Unable to be with family [] Patient intubated [] Other: Summary Time spent with patient
--- NOTE | 2020-09-23 09:54 | PC.CHAP ---
Pastoral Care Encounter/Spiritual Assessment Type of Contact [] Declined therapy manager visit [] Patient/Family/Request visit [] Outpatient visit [] Follow-up visit [] Physician referral [] Code/Alert [x] Routine visit [] Staff referral [] Actively dying [x] Patient sleeping [] Family support [] [] Out of room [] Palliative care [] [] Receiving care in room [] Pre-surgical visit [] Trauma [] Long length of stay [] ICU visit [] Other: Relational/Emotional Strength [] Patient feels connected with others/family/visitors/staff [] Distress [] Loneliness/isolation [] Abandonment Spirituality of Patient [] Person of Niyah [] Attends Baptism of their Niyah [] Believes in Prayer [] Reads Bible or Muslim materials [] There are Spiritual issues to be addressed Machine Maintenance Mechanic Interventions [] Prayer [] Active listening [] Non-anxious presence [] Spiritual/emotional support [] Crisis/trauma care [] Spiritual counseling [] Bereavement support [] Provided bereavement packet [] Provided Bible/devotional materials [] Provided toy/stuffed animal, coloring book to patient or family member [] Provided Communion [] Anointing/[place] [] Salvation [] Completed spiritual assessment [] Other: Impact on Illness or Injury [] Angry [] Fearful [] Anxious [] Often cries [] Exhaustion [] Unable to work [] Unable to attend restorationist [] Unable to walk/stand [] Unable to read [] Unable to drive [] Unable to eat/drink [] Unable to sleep [] Unable to be with family [] Patient intubated [] Other: Summary Time spent with patient
[2020-09-23 10:31] LABS: Anion Gap 14.9 (5-19); Blood Urea Nitrogen 41 mg/dL (8-23); Calcium 8.9 mg/dL (8.5-10.5); Carbon Dioxide 32 mmol/L (22-29); Chloride 82 mmol/L (98-107); Glucose 211 mg/dL (65-115); Osmolality Calculated 276 mOsm/kg (285-295); Potassium 3.9 mmol/L (3.5-5.1); Sodium 125 mmol/L (136-145)
[2020-09-23] MEDS: carvedilol 6.25 mg Tablet PO ×2 (10:58→21:21)
[2020-09-23] MEDS: amlodipine 10 mg Tablet PO (10:58)
[2020-09-23] MEDS: potassium chloride ER 10 mEq Tablet 20 MEQ PO (10:58)
[2020-09-23] MEDS: pantoprazole DR 40 mg Tablet PO (10:58)
--- NOTE | 2020-09-23 12:24 | XR_ITS ---
WS: [id number] PORTABLE CHEST HISTORY: Status post RIGHT thoracentesis. COMPARISON: None available. No pneumothorax status post RIGHT thoracentesis. Very small residual RIGHT pleural effusion. There is no significant LEFT pleural effusion is identified. Much improved aeration bilaterally. Pulm onary congestion has improved since the study earlier the same day. No pneumothorax. Cardiac size: Normal. Mediastinum/Aorta: Mild atherosclerosis aorta. No osseous abnormality seen. XR/XR chest 1V portable [id number] IMPRESSION: 1. Status post RIGHT thoracentesis with no pneumothorax. 2. Very small residual RIGHT pleural effusion. 3. Resolved CHF. 4. No significant LEFT pleural effusion.
[2020-09-23 14:26] LABS: Mononuclear %, Pleural Fluid 84 %; Polynuclear Cells, Pleural % 16 %
[2020-09-23 14:27] LABS: Appearance, Pleural Fluid CLEAR (CLEAR); Color, Pleural Fluid Pale Yellow (Pale Yellow); PATH Referal YES
--- NOTE | 2020-09-23 15:13 | ECG_ITS ---
[facility] Test Date: 2020-09-23 Pat Name: Elizabeth Lima Department: Room: 278 Gender: Female Tobacco Sizer: : 1945 Requested By: Papito Asencio Order Number: [id number] Jose Cruz MD: Paul Freitas M.D. Measurements Intervals [place] Rate: 65 P: 39 PA: 154 QRS: -41 QRSD: 112 T: -7 QT: 459 QTc: 479 Interpretive Statements SINUS RHYTHM MARKED LEFT AXIS DEVIATION [QRS AXIS < -30] LEFT VENTRICULAR HYPERTROPHY AND ST-T CHANGE [VOLTAGE CRITERIA PLUS ST/T ABNORMALITY] Compared to ECG 09/23/2020 02:40:01 Left ventricular hypertrophy now present Atrial fibrillation no longer present ST (T wave) deviation still present Myocardial infarct finding still present Electronically Signed On 09-24-2020 16:47:15 RAND BUTTER by Paul Freitas M.D. [id number]
[2020-09-23] MEDS: acetaminophen 325 mg Tablet 650 MG PO ×2 (15:35→21:21)
[2020-09-23 15:54] LABS: pH Body Fluid 8.5
[2020-09-23 15:57] LABS: LDH Pleural Fluid 96 U/L; Total Protein Pleural Fluid 2.5 g/dL
[2020-09-23] MEDS: atorvastatin 40 mg Tablet 20 MG PO (17:13)
[2020-09-23 18:16] LABS: Magnesium 1.8 mg/dL (1.7-2.3)
--- NOTE | 2020-09-23 19:18 | PM.PN ---
Subjective Subjective: Interval history: This morning noted difficult to arouse despite being on BiPAP. Was given IV diuretic, oxygenation was adjusted, did not receive any medications issued because altered mental status, although now reports has been taking tramadol at home. Sodium was rechecked and was unchanged. Was more awake and not long after, and transfer to ICU was canceled. Reported feeling better. Denies chest pain or pressure. No headache. No nausea vomiting or diarrhea. Later in the day complaining of some leg cramps. Vitals/I&O/Wt Last Vital Signs Temp 99.7 F H 09/23/20 16:07 Pulse 65 09/23/20 16:07 Resp 18 09/23/20 16:07 BP 134/63 09/23/20 16:07 Pulse Ox 94 09/23/20 16:07 09/23/20 09/23/20 09/23/20 06:59 14:59 22:59 Intake Total 300 / 300 420 / 420 240 / 660 Output Total 650 / 650 Balance 300 / 300 420 / 420 -410 / 10 Weight last 48 hrs Weight 56.699 kg Physical Exam Const: COMMON NORMALS: no acute distress and patient oriented x3 OTHER: BiPAP on HENMT: COMMON NORMALS: oropharynx normal Neck/C-Spine: COMMON NORMALS: no JVD Resp: COMMON NORMALS: normal respiratory effort and clear to auscultation bilaterally AUSCULTATION: clear to auscultation bilaterally Cardio: COMMON NORMALS: no JVD, regular rhythm, S1 normal heart sound present, S2 normal heart sound present and No murmurs present (Cardio) RHYTHM: regular rhythm HEART SOUNDS: S1 normal heart sound present and S2 normal heart sound present GI: COMMON NORMALS: Normal to inspection, nondistended, normoactive bowel sounds present, Soft to palpation and non-tender PALPATION: Yes Soft to palpation Extremity: COMMON NORMALS: no joint enlargement and no pedal edema Neuro: COMMON NORMALS: patient oriented x3 and moves all extremities Skin: COMMON NORMALS: no rashes or lesions noted GENERAL SKIN EXAM: no rashes or lesions noted Urinary Catheter Management^: Mcfarland: Cath Placed During This Visit: yes Reason for Continuing Indwelling Catheter: Accurate Measurement of Urinary Output in Critically Ill Patients Urinary Catheter Date of Insertion: 09/23/20 Urinary Catheter Time of Insertion: 08:30 Data : 09/23/20 02:37 09/23/20 09:35 Micro: Microbiology 09/23/20 03:06 Blood Culture - Preliminary Blood SPECIMEN COLLECTED 09/23/20 02:37 Blood Culture - Preliminary Blood SPECIMEN COLLECTED A&P Assessment and plan (1) Acute respiratory failure with hypercapnia: With difficulty to arouse this morning. Encephalopathy, with some rise in CO2. Now that she is awake, telling us she uses tramadol at home, perhaps with some contribution. Does report having some occasional tremors. Appears use tramadol for leg cramps. Not sure if maybe there has been some overuse. Also has underlying COPD. Improvement with additional diuresis, thoracentesis. Continue BiPAP as needed. Wean as tolerating. Avoid tramadol at this time. Status: Acute (2) Acute exacerbation of CHF (congestive heart failure): Continue diuresis. Consider additional thoracentesis on the left side. Status: Acute Qualifiers: Heart failure type: unspecified Qualified Code(s): I50.9 - Heart failure, unspecified (3) CKD (chronic kidney disease) stage 3, GFR 30-59 ml/min: At baseline no exacerbation Status: Acute Qualifiers: Chronic kidney disease stage 3 subtype: stage 3b (GFR 30-44) Qualified Code(s): N18.32 - Chronic kidney disease, stage 3b (4) Hyponatremia: Hypervolemic hyponatremia Patient mucosal membranes are dry however she does have mild signs of CHF exacerbation Anticipating improvement with diuresis No acute neurological changes noted Target sodium level correction 6 mEq in 24 hours Status: Acute (5) Acute encephalopathy: Status: Acute Additional A&P Information Pleural effusions: Thoracentesis today of pleural effusion on the right. History of recurrent pleural effusions, transudate of. COPD without acute exacerbation, patient's increased work of breathing was secondary to CHF and bilateral pleural effusion currently doing well on BiPAP, I would not continue her antibiotics I do not see any infiltrate or signs of pneumonia on CT chest, A. fib reported on initial EKG overnight, but that appears to be incorrect reading. Appears to be in sinus rhythm, appears was having some tremor. Attestations Medical Necessity Statement*: Continue admission for assessment of management of respiratory failure with hypercapnia, transient acute encephalopathy, CHF exacerbation, pleural effusions. Coding Level of Care Code Acute Spray Booth Operator for [facility] Diagnoses Acute respiratory failure with hypercapnia J96.02 Acute exacerbation of CHF (congestive heart failure) I50.9 Heart failure type: unspecified CKD (chronic kidney disease) stage 3, GFR 30-59 ml/min N18.32 Chronic kidney disease stage 3 subtype: stage 3b (GFR 30-44) Hyponatremia E87.1 Acute encephalopathy G93.40
[2020-09-23] MEDS: levoFLOXacin 750 mg Tablet PO (21:21)
[2020-09-24] VITALS (18 sets, daily range): BP systolic 126–149; BP diastolic 47–70; PULSE 65–88; RESP 17–20; TEMP 36.7–37.3; O2SAT 88–97
--- NOTE | 2020-09-24 00:20 | PC.PHAR ---
Levaquin dosage is adjusted from 750mg p.o. every 24 hours to 750mg p.o. once, then 500mg p.o. every 48 hours due to creatinine clearance of 17.56.
[2020-09-24] MEDS: ipratropium-albuterol 3 mL Neb INHALATION ×3 (02:44→14:12)
--- NOTE | 2020-09-24 05:34 | PC.NURSE ---
Patient is currently resting comfortably on BIPAP. Rescheduled 6 am aspirin for 9 am with her other morning medications.
[2020-09-24 06:19] LABS: Basophils % 0.1 %; Eosinophils % 0.1 %; Hematocrit 25.2 % (37.0-47.0); Hemoglobin 8.6 g/dL (11.5-15.3); Lymphocytes # 0.7 10^3/uL (0.8-4.8); Lymphocytes % 5.3 %; Mean Corpuscular HGB Conc 34.1 g/dL (30.0-36.0); Mean Corpuscular Volume 84.8 fL (81-99); Mean Platelet Volume 10.8 fL (7.4-10.4); Monocytes # 0.7 10^3/uL (0.2-0.9); Monocytes % 4.7 %; Neutrophils # 12.45 10^3/uL (1.8-7.7); Neutrophils % 89.3 %; Nucleated Red Blood Cells % 0 %; Platelet Count 281 10^3/cmm (130-400); Red Blood Count 2.97 10^6/uL (4.1-5.3); Red Cell Distribution Width 14.6 % (12.1-15.1); White Blood Count 13.9 10^3/uL (4.0-10.0)
[2020-09-24 06:40] LABS: Alanine Aminotransferase 13 U/L (0-33); Albumin Level 3.1 g/dL (3.5-5.2); Alkaline Phosphatase 95 IU/L (35-105); Anion Gap 16.5 (5-19); Aspartate Amino Transferase 22 U/L (0-32); Blood Urea Nitrogen 54 mg/dL (8-23); Calcium 8.7 mg/dL (8.5-10.5); Carbon Dioxide 32 mmol/L (22-29); Chloride 83 mmol/L (98-107); Globulin 3.8 g/dL (1.3-4.6); Glucose 176 mg/dL (65-115); Osmolality Calculated 283 mOsm/kg (285-295); Potassium 4.5 mmol/L (3.5-5.1); Sodium 127 mmol/L (136-145); Total Bilirubin 0.3 mg/dL (0.15-1.2); Total Protein 6.9 g/dL (6.6-8.7)
--- NOTE | 2020-09-24 07:23 | PC.NURSE ---
Addendum entered by Lala Nation RN 09/24/20 07:25: Report to Cami ALFONSO not Ling ALFONSO Original Note: Report to Ling ALFONSO
[2020-09-24] MEDS: potassium chloride ER 10 mEq Tablet 20 MEQ PO (09:55)
[2020-09-24] MEDS: aspirin 81 mg EC Tablet PO (09:57)
[2020-09-24] MEDS: carvedilol 6.25 mg Tablet PO ×2 (09:57→20:09)
[2020-09-24] MEDS: amlodipine 10 mg Tablet PO (09:57)
[2020-09-24] MEDS: metOLazone 5 MG Tablet PO (09:57)
[2020-09-24] MEDS: pantoprazole DR 40 mg Tablet PO (09:58)
--- NOTE | 2020-09-24 10:47 | PC.CHAP ---
Pastoral Care Encounter/Spiritual Assessment Type of Contact [] Declined religion teacher visit [] Patient/Family/Request visit [] Outpatient visit [] Follow-up visit [] Physician referral [] Code/Alert [x] Routine visit [] Staff referral [] Actively dying [] Patient sleeping [] Family support [] [] Out of room [] Palliative care [] [] Receiving care in room [] Pre-surgical visit [] Trauma [] Long length of stay [] ICU visit [] Other: Relational/Emotional Strength [x] Patient feels connected with others/family/visitors/staff [] Distress [] Loneliness/isolation [] Abandonment Spirituality of Patient [] Person of Niyah [] Attends Zoroastrian of their Niyah [] Believes in Prayer [] Reads Bible or Orthodox materials [] There are Spiritual issues to be addressed Formulator Interventions [x] Prayer [] Active listening [] Non-anxious presence [] Spiritual/emotional support [] Crisis/trauma care [] Spiritual counseling [] Bereavement support [] Provided bereavement packet [] Provided Bible/devotional materials [] Provided toy/stuffed animal, coloring book to patient or family member [] Provided Communion [] Anointing/[place] [] Salvation [x] Completed spiritual assessment [] Other: Impact on Illness or Injury [] Angry [] Fearful [x] Anxious [] Often cries [] Exhaustion [] Unable to work [] Unable to attend pentecostal [] Unable to walk/stand [] Unable to read [] Unable to drive [] Unable to eat/drink [] Unable to sleep [] Unable to be with family [] Patient intubated [] Other: Summary patient seemed lonely Time spent with patient 10 min
[2020-09-24] MEDS: acetaminophen 325 mg Tablet 650 MG PO ×2 (12:09→20:09)
--- NOTE | 2020-09-24 13:11 | US_ITS ---
WS: [id number] Ultrasound LEFT thorax. History: Short of breath. Ultrasound performed prior to thoracentesis. There is only a very tiny sliver of fluid in the LEFT pl eural space. Radiographically the effusion has significantly improved as seen on 09/23/2020. This effu aminata is resolving on its own. US/US chest [id number] IMPRESSION: Very tiny amount of residual LEFT pleural effusion persists. Not sufficient deniz unt for thoracentesis.
[2020-09-24] MEDS: bumetanide 0.25 mg/mL SDV 10 mL 2 MG IV (18:43)
[2020-09-24] MEDS: atorvastatin 40 mg Tablet 20 MG PO (18:43)
--- NOTE | 2020-09-24 19:54 | PM.PN ---
Subjective Subjective: Interval history: Denies chest pain or pressure. Breathing is improving. Vitals/I&O/Wt Last Vital Signs Temp 98.9 F 09/24/20 15:17 Pulse 73 09/24/20 16:05 Resp 18 09/24/20 15:17 BP 149/66 09/24/20 15:17 Pulse Ox 91 09/24/20 16:05 09/24/20 09/24/20 09/24/20 06:59 14:59 22:59 Intake Total 120 / 120 200 / 320 Output Total 200 / 850 Balance -200 / -90 120 / 120 200 / 320 Weight last 48 hrs Weight 56.699 kg Physical Exam Const: COMMON NORMALS: no acute distress and patient oriented x3 OTHER: Nasal cannula HENMT: COMMON NORMALS: oropharynx normal Neck/C-Spine: COMMON NORMALS: no JVD Resp: COMMON NORMALS: normal respiratory effort and clear to auscultation bilaterally AUSCULTATION: clear to auscultation bilaterally OTHER: Improving air entry. Cardio: COMMON NORMALS: no JVD, regular rhythm, S1 normal heart sound present, S2 normal heart sound present and No murmurs present (Cardio) RHYTHM: regular rhythm HEART SOUNDS: S1 normal heart sound present and S2 normal heart sound present GI: COMMON NORMALS: Normal to inspection, nondistended, normoactive bowel sounds present, Soft to palpation and non-tender PALPATION: Yes Soft to palpation Extremity: COMMON NORMALS: no joint enlargement and no pedal edema Neuro: COMMON NORMALS: patient oriented x3 and moves all extremities Skin: COMMON NORMALS: no rashes or lesions noted GENERAL SKIN EXAM: no rashes or lesions noted Urinary Catheter Management^: Mcfarland: Cath Placed During This Visit: yes Reason for Continuing Indwelling Catheter: Acute Urinary Retention or Obstruction Urinary Catheter Date of Insertion: 09/23/20 Urinary Catheter Time of Insertion: 08:30 Data : 09/24/20 05:45 09/24/20 05:45 Micro: Microbiology 09/23/20 03:06 Blood Culture - Preliminary Blood NEGATIVE TO DATE 09/23/20 02:37 Blood Culture - Preliminary Blood NEGATIVE TO DATE A&P Assessment and plan (1) Acute exacerbation of CHF (congestive heart failure): Was continued on Bumex, today received additional dose of Zaroxolyn. Diuresing well. Additional assessment for thoracentesis today showing much improvement in pleural effusion, with effusion currently too small to tap. If continues to improve, transition to oral Lasix and be able to discharge within the next 1-2 days if no further issues. Status: Acute Qualifiers: Heart failure type: unspecified Qualified Code(s): I50.9 - Heart failure, unspecified (2) Acute respiratory failure with hypercapnia: So far appears to have resolved. She remains awake, alert, lucid. Improved aeration with treatment and resolution of pleural effusions. Consider assessment by sleep study after discharge. Discussed with her. Early on admission had an episode of difficulty to arouse. Encephalopathy, with some rise in CO2. Now that she is awake, telling us she uses tramadol at home, perhaps with some contribution. Does report having some occasional tremors. Appears use tramadol for leg cramps. Not sure if maybe there has been some overuse. Also has underlying COPD. Improvement with additional diuresis, thoracentesis. Avoid tramadol at this time. Status: Acute (3) CKD (chronic kidney disease) stage 3, GFR 30-59 ml/min: At baseline no exacerbation Status: Acute Qualifiers: Chronic kidney disease stage 3 subtype: stage 3b (GFR 30-44) Qualified Code(s): N18.32 - Chronic kidney disease, stage 3b (4) Hyponatremia: Showing mild gradual improvement. Hypervolemic hyponatremia Status: Acute (5) Acute encephalopathy: Appears to be resolved. Status: Acute Additional A&P Information Pleural effusions: Right side treated by thoracentesis. Left side appears to be significantly improving with diuresis. Recurrent pleural effusions. Discussed with her switch technician, would benefit from better control of of CHF. Discussed with her as well consideration for referral for sleep study to exclude sleep apnea contribution. COPD without acute exacerbation A. fib reported on initial EKG overnight, but that appears to be incorrect reading. Appears to be in sinus rhythm, appears was having some tremor. Attestations Medical Necessity Statement*: Continue admission for assessment and management of CHF, recurrent pleural effusions, discharge arrangements. Coding Level of Care Code Acute Doctor Of Chiropractic for [facility] Fwd Diagnoses Acute exacerbation of CHF (congestive heart failure) I50.9 Heart failure type: unspecified Acute respiratory failure with hypercapnia J96.02 CKD (chronic kidney disease) stage 3, GFR 30-59 ml/min N18.32 Chronic kidney disease stage 3 subtype: stage 3b (GFR 30-44) Hyponatremia E87.1 Acute encephalopathy G93.40
[2020-09-25] VITALS (9 sets, daily range): BP systolic 136–153; BP diastolic 55–68; PULSE 67–97; RESP 17–20; TEMP 36.6–37.5; O2SAT 79–95
[2020-09-25] MEDS: acetaminophen 325 mg Tablet 650 MG PO ×4 (00:45→16:30)
[2020-09-25] MEDS: aspirin 81 mg EC Tablet PO (05:59)
[2020-09-25 06:18] LABS: Basophils % 0.2 %; Eosinophils % 0.3 %; Hematocrit 26.2 % (37.0-47.0); Hemoglobin 8.8 g/dL (11.5-15.3); Lymphocytes # 1.4 10^3/uL (0.8-4.8); Mean Corpuscular HGB Conc 33.6 g/dL (30.0-36.0); Mean Corpuscular Hemoglobin 28.4 pg (28.0-34.0); Mean Corpuscular Volume 84.5 fL (81-99); Mean Platelet Volume 10.7 fL (7.4-10.4); Monocytes # 0.8 10^3/uL (0.2-0.9); Monocytes % 5.5 %; Neutrophils # 12.58 10^3/uL (1.8-7.7); Neutrophils % 84.3 %; Nucleated Red Blood Cells % 0 %; Platelet Count 320 10^3/cmm (130-400); Red Cell Distribution Width 14.7 % (12.1-15.1); White Blood Count 14.9 10^3/uL (4.0-10.0)
[2020-09-25 06:39] LABS: Alanine Aminotransferase 12 U/L (0-33); Albumin Level 3.1 g/dL (3.5-5.2); Alkaline Phosphatase 75 IU/L (35-105); Anion Gap 15.6 (5-19); Aspartate Amino Transferase 21 U/L (0-32); Blood Urea Nitrogen 52 mg/dL (8-23); Calcium 8.7 mg/dL (8.5-10.5); Carbon Dioxide 33 mmol/L (22-29); Chloride 85 mmol/L (98-107); Globulin 3.7 g/dL (1.3-4.6); Glucose 113 mg/dL (65-115); Osmolality Calculated 285 mOsm/kg (285-295); Potassium 3.6 mmol/L (3.5-5.1); Sodium 130 mmol/L (136-145); Total Bilirubin 0.4 mg/dL (0.15-1.2); Total Protein 6.8 g/dL (6.6-8.7)
--- NOTE | 2020-09-25 07:28 | PC.NURSE ---
asked pt. if we could sit up for bfast pt. stated her back hurt to bad to sit up in chair.
[2020-09-25] MEDS: amlodipine 10 mg Tablet PO (08:40)
[2020-09-25] MEDS: pantoprazole DR 40 mg Tablet PO (08:41)
[2020-09-25] MEDS: carvedilol 6.25 mg Tablet PO (08:41)
[2020-09-25] MEDS: potassium chloride ER 10 mEq Tablet 20 MEQ PO (08:41)
--- NOTE | 2020-09-25 10:56 | PM.DCS ---
Discharge Providers Date of Admission: 09/24/20 07:40 Date of Discharge: September 25, 2020 Attending Provider at Admission: Jin Arreaga MD Attending Provider at Discharge: Papito Asencio Primary Care Provider: Crystal Olivia MD Diagnoses at Discharge Discharge Diagnosis (1) Acute exacerbation of CHF (congestive heart failure): Status: Acute Qualifiers: Heart failure type: unspecified Qualified Code(s): I50.9 - Heart failure, unspecified (2) Acute respiratory failure with hypercapnia: Status: Acute (3) CKD (chronic kidney disease) stage 3, GFR 30-59 ml/min: Status: Acute Qualifiers: Chronic kidney disease stage 3 subtype: stage 3b (GFR 30-44) Qualified Code(s): N18.32 - Chronic kidney disease, stage 3b (4) Hyponatremia: Status: Acute (5) Acute encephalopathy: Status: Acute Reason for Visit Reason for Visit: SOB Hospital Course Hospital Course Pleasant 75-year-old lady with history of CHF, CKD, CAD, DM2, HTN, HLD, With CHF exacerbation Requiring intubation, mechanical ventilation during admission in August, With noted cardiorenal syndrome, with pleural effusion requiring thoracentesis of transudate of fluid. With recent GI bleed continuing on PPI, with recent episode of acute anemia. Was admitted during his hospitalization. After progressing shortness of breath bothering her at home despite taking Lasix 80 mg twice daily which were prescribed for her during periods hospitalization. Day prior admission also had a mechanical fall. Was noted hypoxic and hypercapnic on presentation. She received Zosyn and vancomycin for suspected pneumonia. Was started on BiPAP support. Subsequently with noted episode of being difficult to arouse, with noted worsening hypercapnia. Later also revealed she has been taking tramadol for pain. Noted somewhat tremulous. Not sure whether there may have been adverse effect from tramadol, or whether may have taken more than prescribed. Alternatively I miss may been secondary to hypoxia, hypercapnia, leading to encephalopathy, with hypercapnia worsened by noted bilateral pleural effusions, moderate-large on right, moderate left. Received IV diuresis with bumetanide. FiO2 was adjusted to prevent overly high oxygen saturation. Was continued BiPAP support. Mental status improved. Underwent right side thoracentesis with improvement in respiratory status, without recurrence of encephalopathy during remainder of the hospitalization. Was continue diuresis, with diuretic augmented by Zaroxolyn on 2/18. Moderate left side pleural effusion was reassessed by ultrasonography, and showed quite significant improvement to small, not enough for thoracentesis. Her respiratory status improved. She is breathing much easier. She is currently at baseline 3 L nasal cannula oxygen. Hyponatremia noted on presentation gradually improved. She is maintained on regular diet for now due to hyponatremia. Oral Lasix are continued on discharge. She is asked to maintain fluid restriction 1000 mL. We also again discussed referral which is given for her for sleep study to assess for possible sleep apnea contributing to recurrent pleural effusions and congestive heart failure/respiratory failure. She is asked to follow-up with cardiology and pulmonology in office to optimize CHF and recurrent pleural effusions, prevent respiratory failure episodes with hypoxia and hypercapnia. On presentation also noted to have L2 compression fracture. If possible would avoid tramadol in case may have contributed to episode of altered mental status. Otherwise continue symptomatic management, continue mobilization. She is referred to home health for continued therapy. In case of persistent symptoms, consider referral to pain clinic. Physical Exam Const: COMMON NORMALS: no acute distress and patient oriented x3 OTHER: Nasal cannula Remains lucid. She is awake, alert, in good spirits. Denies any discomfort. Says breathing is much better. Feels in good shape to return home. HENMT: COMMON NORMALS: oropharynx normal Neck/C-Spine: COMMON NORMALS: no JVD Resp: COMMON NORMALS: normal respiratory effort and clear to auscultation bilaterally AUSCULTATION: clear to auscultation bilaterally OTHER: Improving air entry. Cardio: COMMON NORMALS: no JVD, regular rhythm, S1 normal heart sound present, S2 normal heart sound present and No murmurs present (Cardio) RHYTHM: regular rhythm HEART SOUNDS: S1 normal heart sound present and S2 normal heart sound present GI: COMMON NORMALS: Normal to inspection, nondistended, normoactive bowel sounds present, Soft to palpation and non-tender PALPATION: Yes Soft to palpation Extremity: COMMON NORMALS: no joint enlargement and no pedal edema Neuro: COMMON NORMALS: patient oriented x3 and moves all extremities Skin: COMMON NORMALS: no rashes or lesions noted GENERAL SKIN EXAM: no rashes or lesions noted Urinary Catheter Management^: [place]: Cath Placed During This Visit: yes Reason for Continuing Indwelling Catheter: Other Urinary Catheter Date of Insertion: 09/23/20 Urinary Catheter Time of Insertion: 08:30 Discharge Data Data Completed and Pending: Completed Studies During Hospitalization Category Date Time Status CT chest wo con 7 1250 Urgent Cat Scan 09/23/20 02:[address] lumbar spine w o con* 11570 Urgen t Cat Scan 09/23/20 03:49 Completed XR chest 1V aung ble [id number] Routine Exams 09/23/20 12:24 Completed XR chest 1V aung ble [id number] Urgent Exams 09/23/20 02:30 Completed US chest 47647 Ro utine Ultrasound 09/24/20 13:11 Completed US thoracentesis 06180 Routine Ultrasound 09/23/20 05:56 Completed Pending at discharge Category Date Time Status Blood Culture Sta t Lab 09/23/20 03:06 Results Complete Blood Co unt w/Auto AM LABS Lab 09/26/20 04:00 Ordered Complete Blood Co unt w/Auto AM LABS Lab 09/27/20 04:00 Ordered Comprehensive Met abolic Panel AM LA BS Lab 09/26/20 04:00 Ordered Labs from last 24 hours 09/25/20 09/25/20 05:35 05:35 WBC 14.9 H RBC 3.10 L Hgb 8.8 L Hct 26.2 L MCV 84.5 MCH 28.4 MCHC 33.6 RDW 14.7 Plt Count 320 MPV 10.7 H Neut % (Auto) 84.3 Lymph % (Auto) 9.0 [place] % (Auto) 5.5 Eos % (Auto) 0.3 Baso % (Auto) 0.2 Neut # (Auto) 12.58 H Lymph # (Auto) 1.4 [place] # (Auto) 0.8 Eos # (Auto) 0.0 Baso # (Auto) 0.0 Nucleated RBC % (a uto) 0 Nucleated RBCs # 0.0 Sodium 130 L Potassium 3.6 Chloride 85 L Carbon Dioxide 33 H Anion Gap 15.6 BUN 52 H Creatinine 2.3 H GFR Calculation Not Reportable Glucose 113 Calculated Osmolal ity 285 Calcium 8.7 Total Bilirubin 0.4 AST 21 ALT 12 Alkaline Phosphata se 75 Total Protein 6.8 Albumin 3.1 L Globulin 3.7 Vitals: Last Vital Signs Temp 99.5 F 09/25/20 07:20 Pulse 67 09/25/20 08:22 Resp 17 09/25/20 08:22 BP 144/65 09/25/20 07:20 Pulse Ox 89 L 09/25/20 08:22 Discharge Plan Discharge Patient Disposition: Home Health Service Condition: Stable Prescriptions: New levofloxacin 500 mg Tablet 500 mg PO Q48H Qty: 2 RF: 0 Continued citalopram 10 mg tablet 10 mg PO .HS Qty: 90 RF: 3 metolazone 2.5 mg tablet 2.5 mg PO DAILY Qty: 30 RF: 2 hydralazine 50 mg tablet 50 mg PO TID RF: 0 gabapentin 100 mg capsule 200 mg PO BID@ RF: 0 amlodipine 10 mg tablet 10 mg PO DAILY Qty: 30 RF: 0 aspirin 81 mg Tablet,Delayed Release (Dr/Ec) 81 mg PO DAILY@06 RF: 0 potassium chloride 20 mEq tablet extended release 20 meq PO DAILY Qty: 30 RF: 4 carvedilol 6.25 mg tablet 6.25 mg PO BID@ RF: 0 glipizide 5 mg Tablet 5 mg PO PRN PRN (Reason: blood sugar) RF: 0 Santyl 250 unit/gram ointment 1 applic topical DAILY Qty: 30 RF: 1 furosemide 40 mg Tablet 80 mg PO BID@,18 30 Days Qty: 60 RF: 3 atorvastatin 10 mg Tablet 20 mg PO QPM Qty: 0 RF: 0 pantoprazole 40 mg Tablet,Delayed Release (Dr/Ec) 40 mg PO BID 30 Days Qty: 60 RF: 4 Discharge Orders: Discharge Order (Routine); Ordered 09/25/20 Ordered By: Papito Asencio Other Ambulatory Orders: Sleep Study/Titration (Routine) Timeframe: 1 Week Location: None Selected Ordered By: Papito Asencio Referrals: Elio Wright MD [Physician] - 10/12/20 2:30 pm (recurrent effusion, hypercapneic resp fail) Jin Steele MD [Physician] - 11/23/20 1:00 pm Ema Fu FNP [Nurse Practitioner] - 09/29/20 1:30 pm Crystal Olivia MD [Primary Care Provider] - 09/30/20 11:00 am Discharge Diet: Regular Discharge Activity: Increase activity as tolerated, As per PT/OT instructions and Oxygen as instructed Activity Restrictions/Additional Instructions: Avoid overhydration. Limit fluid intake to 1000 mL/day. Follow-up with your primary care doctor regarding congestive heart failure, recurrent pleural effusions. Please discuss also pneumonia. Complete antibiotic course prescribed on discharge. Please follow-up with sleep study due to concern for sleep apnea contributing to recurrent pleural effusions. Monitor blood pressures and heart rates at home 3 times daily. Write down values to bring to your appointment. Please discuss with your primary care doctor regarding noted compression fracture of L2 vertebral body. Increase activity as tolerating. Use topical agents, quitting mental, capsaicin, icy hot, or other for pain relief, Tylenol as needed. Attempt to avoid tramadol if possible. Discussed with your primary care doctor if pain is well controlled. Discuss consideration of referral to pain clinic. Discharge Attestations Time Spent in Discharge Care*: greater than 30 min Status at Discharge: Cognitive status at discharge: cognitively intact, Behavioral status at discharge: cooperative, Quality Metrics Clinical Quality Measures During this hospital stay, did patient experience: None Coding Level of Care Code Acute Pharmacy Sales Assistant for [facility] Fwd Exam Comprehensive Diagnoses Acute exacerbation of CHF (congestive heart failure) I50.9 Heart failure type: unspecified Acute respiratory failure with hypercapnia J96.02 CKD (chronic kidney disease) stage 3, GFR 30-59 ml/min N18.32 Chronic kidney disease stage 3 subtype: stage 3b (GFR 30-44) Hyponatremia E87.1 Acute encephalopathy G93.40
[2020-09-25] MEDS: calcium carbonate 500 mg Chew Tablet PO (12:38)
--- NOTE | 2020-09-25 13:38 | PC.CHAP ---
Pastoral Care Encounter/Spiritual Assessment Type of Contact [] Declined cat and dog bather visit [] Patient/Family/Request visit [] Outpatient visit [xx] Follow-up visit [] Physician referral [] Code/Alert [xx] Routine visit [] Staff referral [] Actively dying [] Patient sleeping [] Family support [] [] Out of room [] Palliative care [] [] Receiving care in room [] Pre-surgical visit [] Trauma [] Long length of stay [] ICU visit [] Other: Relational/Emotional Strength [xx] Patient feels connected with others/family/visitors/staff [] Distress [] Loneliness/isolation [] Abandonment Spirituality of Patient [xx] Person of Niyah [] Attends Mandaen of their Niyah [xx] Believes in Prayer [xx] Reads Bible or Presybeterian materials [] There are Spiritual issues to be addressed Motor Vehicle Salesperson Interventions [xx] Prayer [xx] Active listening [xx] Non-anxious presence [] Spiritual/emotional support [] Crisis/trauma care [xx] Spiritual counseling [] Bereavement support [] Provided bereavement packet [xx] Provided Bible/devotional materials [] Provided toy/stuffed animal, coloring book to patient or family member [] Provided Communion [] Anointing/[place] [] Salvation [] Completed spiritual assessment [] Other: Impact on Illness or Injury [] Angry [] Fearful [] Anxious [] Often cries [] Exhaustion [] Unable to work [] Unable to attend oriental orthodox [] Unable to walk/stand [] Unable to read [] Unable to drive [] Unable to eat/drink [] Unable to sleep [] Unable to be with family [] Patient intubated [] Other: Summary Patient asked for Our Daily Bread devotional. After some discussion about niyah, patient requested communion. After lengthy discussion on purpose and importance and sincerity of communion, , with help from kitchen staff providing the elements, cat and dog bather accommodated patient in giving her communion with Bible reading of ! Cindy Chapter 11 and further prayer as each element was taken. Additional discussion on the elements and their purpose was made. The Bible was left with the patient. Time spent with patient 35 minutes total time with patient (2 trips - had to get cracker & juice from kitchen and return to room)
== END 2020-09-25 16:35 | disposition home health service (06) | DRG 291 ==
LOC: ER 04:50 → MEDSURG 07:13
PROVIDERS: Admitting Provider Internal Medicine; Emergency Provider Emergency Medicine; PCP Family Medicine; Visit Provider Internal Medicine
DX: I13.0 Hypertensive heart and chronic kidney disease with heart failure and stage 1 through stage 4 chronic kidney disease, or unspecified chronic kidney disease (principal); I50.33 Acute on chronic diastolic (congestive) heart failure; J96.02 Acute respiratory failure with hypercapnia; J96.01 Acute respiratory failure with hypoxia; J18.9 Pneumonia, unspecified organism; S32.029A Unspecified fracture of second lumbar vertebra, initial encounter for closed fracture; E87.1 Hypo-osmolality and hyponatremia; J44.0 Chronic obstructive pulmonary disease with (acute) lower respiratory infection; J91.8 Pleural effusion in other conditions classified elsewhere; G93.40 Encephalopathy, unspecified; N18.32 Chronic kidney disease, stage 3b; E11.22 Type 2 diabetes mellitus with diabetic chronic kidney disease; W01.0XXA Fall on same level from slipping, tripping and stumbling without subsequent striking against object, initial encounter; Z99.81 Dependence on supplemental oxygen; D63.1 Anemia in chronic kidney disease; E78.5 Hyperlipidemia, unspecified; I25.2 Old myocardial infarction; E11.51 Type 2 diabetes mellitus with diabetic peripheral angiopathy without gangrene; Z87.01 Personal history of pneumonia (recurrent); R25.1 Tremor, unspecified; Z79.84 Long term (current) use of oral hypoglycemic drugs; Z79.82 Long term (current) use of aspirin; T40.425A Adverse effect of tramadol, initial encounter
CPT/HCPCS: 32555; 36415; 36600; 51702; 71045; 71250; 72131; 76604; 80048; 80053; 80500; 81001; 82803; 82805; 82945; 83615; 83735; 83880; 83986; 84145; 84157; 85025; 85610; 87040; 87426; 87804; 89050; 93005; 94640; 94660; 96365; 96367; 97161; 99291; G0378; J2543; J2930; J3370; J3490; J7050

== ENCOUNTER 2020-10-19 15:36 | Observation (INO) | payer MEDICARE, SELFPAY ==
[2020-10-19 15:45] VITALS: BP 133/62; PULSE 67; RESP 18; TEMP 37.1; O2SAT 100; BMI 22.1
--- NOTE | 2020-10-19 16:23 | XR_ITS ---
WS: [id number] XR KUB portable [id number] REASON FOR EXAM: constipated, n/v FINDINGS: Large amount of stool within the colon. Moderate amount of stool in the rectal vault. No small bowel dilatation. No free air or retroperitoneal air. No significant calcifications identified in the abdomen or pelvis. Bony demineralization with significant biconcave compression deformities in the lumbar spine with ext ensive enthesophytes. There are also noted to be extensive enthesophytes related to the bony pelvis a nd hips. XR/XR KUB portable [id number] IMPRESSION: No acute abdominal abnormality. Incidental diffuse idiopathic skeletal hyperostosis.
--- NOTE | 2020-10-19 18:26 | ED_ITS ---
HPI - Abdominal Pain General: Chief Complaint: Abdominal Pain Stated Complaint: BOWEL ISSUES - N/V Time Seen by Provider: 10/19/20 18:05 Source: patient, family and RN notes reviewed Limitations: no limitations History of Present Illness: HPI narrative: This patient presents to the emergency department complaining of abdominal pain and mild nausea. Patient has a long history of constipation related to the medication she takes local nursing facility. Patient denies vomiting. Denies any specific medical complaints. Patient that she's been having issues with constipation and that they tried a fleets enema without relief. We'll do medical evaluation treat as needed. MD elicited complaint: abdominal pain and flank pain Pertinent past history: none Onset (ago): day(s) (5) Pain Consistency: intermittent Location: L flank Severity: moderate Associated Symptoms: Reports constipation and GI cramping; Denies chills, dysuria, fever(s), nausea and vomiting Review of Systems General: Reports: 10 or more systems reviewed and unremarkable except in HPI and below Const: Denies: fever(s) or chills Eyes: Denies: change in vision or blurry vision ENMT: Denies: throat pain, hoarseness or mouth pain Card: Denies: chest pain, palpitations, irregular heart rhythm, edema, swelling of feet/ankles or lightheadedness Resp: Denies: dyspnea, productive cough, non-productive cough, wheezing or pain on inspiration GI: Reports: constipation and GI cramping; Denies: nausea or vomiting : Denies: dysuria Musc: Denies: neck pain, back pain, extremity pain, extremity swelling, joint pain, joint swelling, joint redness, joint warmth or limited range of motion Skin/Breast: Denies: rash, pruritus, erythema or skin tenderness Neuro: Denies: headache(s), numbness in extremities or weakness in extremities Psych: Denies: anxiety or depression PFS ED PFSH: Medical History Acute exacerbation of chronic obstructive pulmonary disease Acute respiratory failure Anemia CKD (chronic kidney disease) stage 3, GFR 30-59 ml/min Critical lower limb ischemia Diabetes mellitus Diabetic ulcer of heel Diastolic CHF, chronic Essential hypertension Fracture of lumbar spine Hematemesis Hyperlipidemia NSTEMI (non-ST elevated myocardial infarction) Peripheral arterial disease Peripheral vascular disease Pleural effusion Pneumonia Pulmonary edema Recent non-ST elevation myocardial infarction Surgical History Surgical history unknown Hysterectomy documented previously, but patient still appears to have her uterus on her CAT scan Family History Other Cancer Rheumatoid arthritis Social History Smoking and tobacco status: never smoked Second hand smoke exposure: No Alcohol intake: never Lives independently: No Marital status: / Current occupational status: retired History of recent travel: No Current gender identity: Female Female Reproductive History: Para: 2 Physical Exam Const: COMMON NORMALS: no acute distress, average body habitus, patient oriented x3, no limitations, healthy appearing, alert and well nourished HENMT: COMMON NORMALS: normocephalic, atraumatic, external ears normal, EAC's normal, TM's normal bilaterally, Normal external nose present and Normal nasal mucous membranes and turbinates present HEAD & SCALP: normocephalic and atraumatic NOSE: Normal external nose present and Normal nasal mucous membranes and turbinates present EXTERNAL EAR: Yes external ears normal EXTERNAL AUDITORY CANAL: EAC's normal TYMPANIC MEMBRANE: TM's normal bilaterally Neck/C-Spine: COMMON NORMALS: full ROM, no lymphadenopathy, supple, no meningeal signs, no JVD, Thyroid normal and No carotid bruits THYROID: Thyroid normal Chest: COMMONS NORMALS: normal inspection of the chest, normal palpation of entire chest wall, normal inspection of the breasts and normal palpation of the breasts Breast/axilla inspection: Yes normal inspection of the breasts BREAST/AXILLA PALPATION: Yes normal palpation of the breasts Resp: COMMON NORMALS: normal respiratory effort, No retractions, No use of accessory muscles, clear to auscultation bilaterally and percussion normal AUSCULTATION: clear to auscultation bilaterally PERCUSSION: percussion normal Cardio: COMMON NORMALS: no JVD, regular rate, regular rhythm, S1 normal heart sound present, S2 normal heart sound present, No gallops present (Cardio), No clicks present (Cardio), No murmurs present (Cardio), No rub (Cardio) and Peripheral pulses 2+ throughout RATE: regular rate RHYTHM: regular rhythm HEART SOUNDS: S1 normal heart sound present and S2 normal heart sound present PERIPHERAL PULSES: Peripheral pulses 2+ throughout GI: COMMON NORMALS: Normal to inspection, nondistended, normoactive bowel sounds present, Soft to palpation, non-tender, No hepatosplenomegaly present, no masses and no bruits PALPATION: Yes Soft to palpation and Yes No hepatosplenomegaly present : COMMON NORMALS: Yes no CVA tenderness, Yes normal external appearance, Yes normal appearance of the vagina, Yes normal appearance of the cervix, Yes normal bimanual exam, Yes No adnexal tenderness and Yes no masses BLADDER/KIDNEY EXAM: Yes no CVA tenderness BIMANUAL EXAM - VAGINA & UTERUS: Yes normal bimanual exam Back/Pelvis: COMMON NORMALS: no CVA tenderness, thoracic and lumbar spine normal to inspection, no thoracic nor lumbar tenderness, thoraco-lumbar ROM normal and straight leg raise negative bilaterally Extremity: COMMON NORMALS: normal to inspection, full ROM, capillary refill normal, no joint enlargement, no clubbing, cyanosis or edema, no calf tenderness and no pedal edema Neuro: COMMON NORMALS: patient oriented x3 SENSORIUM/ORIENTATION: Yes alert MENINGEAL SIGNS: Yes no meningeal signs Course ED course: Patient doing well having mild abdominal cramping from constipation. Patient was found to have significant constipation. Patient has hyponatremia and hypokalemia. These numbers are significantly lower than they were previously. Will admit to [facility] for hospitalist. With IV fluid hydration potassium replacement and help with constipation. Reevaluation(s): Reevaluation #1: Patient doing well Time: 20:02 Consultations: Consultation #1: Discussed with Dr. Christian Time: 20:03 Vital Signs: Vital signs: Vital Signs Temperature 98.7 F 10/19/20 15:45 Pulse Rate 67 10/19/20 20:14 Respiratory Rate 13 10/19/20 20:14 Blood Pressure 149/64 10/19/20 20:14 Pulse Oximetry 100 10/19/20 20:14 MDM - Abdominal Pain MDM Narrative: Medical decision making narrative: Abdominal pain, nausea momma, constipation,. Lab Data: Labs: Lab Results 10/19/20 10/19/20 Range/Units 19:02 19:02 WBC 10.2 H (4.0-10.0) 10^3/ uL RBC 3.62 L (4.1-5.3) 10^6/u L Hgb 10.4 L (11.5-15.3) g/dL Hct 30.7 L (37.0-47.0) % MCV 84.8 (81-99) fL MCH 28.7 (28.0-34.0) pg MCHC 33.9 (30.0-36.0) g/dL RDW 13.7 (12.1-15.1) % Plt Count 297 (130-400) 10^3/c mm MPV 10.2 (7.4-10.4) fL Neut % (Auto) 78.7 % Lymph % (Auto) 13.6 % [place] % (Auto) 5.6 % Eos % (Auto) 1.1 % Baso % (Auto) 0.5 % Neut # (Auto) 8.06 H (1.8-7.7) 10^3/u L Lymph # (Auto) 1.4 (0.8-4.8) 10^3/u L [place] # (Auto) 0.6 (0.2-0.9) 10^3/u L Eos # (Auto) 0.1 (0.0-0.8) 10^3/u L Baso # (Auto) 0.1 (0.0-0.1) 10^3/u L Nucleated RBC % (a uto) 0 % Nucleated RBCs # 0.0 /100WBC Sodium 127 L (136-145) mmol/L Potassium 2.9 L (3.5-5.1) mmol/L Chloride 75 L (98-107) mmol/L Carbon Dioxide 40 H (22-29) mmol/L Anion Gap 14.9 (5-19) BUN 44 H (8-23) mg/dL Creatinine 2.4 H (0.5-0.9) mg/dL GFR Calculation Not Reportable Glucose 127 H (65-115) mg/dL Calculated Osmolal ity 277 L (285-295) mOsm/k g Calcium 8.9 (8.5-10.5) mg/dL Total Bilirubin 0.5 (0.15-1.2) mg/dL AST 22 (0-32) U/L ALT 8 (0-33) U/L Alkaline Phosphata se 82 (35-105) IU/L Total Protein 7.5 (6.6-8.7) g/dL Albumin 3.8 (3.5-5.2) g/dL Globulin 3.7 (1.3-4.6) g/dL Lipase 117 H (13-60) U/L Imaging Data ^: KUB: Attestation: I personally reviewed and interpreted this imaging study as follows: My impression: This constipation. Patient has significant stool in the colon. Nonspecific bowel gas. Discharge Plan Discharge Patient Disposition: Placed in Observation Clinical Impression: Acute hypokalemia, Hyponatremia, Abdominal pain, Constipation Coding Level of Care Code ED Setter Machine for Chg Fwd Exam Comprehensive
[2020-10-19] MEDS: methylnaltrexone 12 /0.6 mL INJ 12 MG SUBCUT (19:03)
[2020-10-19] MEDS: docusate sodium 100 mg Capsule PO (19:08)
[2020-10-19] MEDS: dicyclomine 20 mg Tablet PO (19:09)
[2020-10-19] MEDS: sodium chloride 0.9% 500 ML IV (19:17)
[2020-10-19] MEDS: ondansetron 2 mg/ML SDV 2 mL 4 MG IVP (19:35)
[2020-10-19 19:43] LABS: Basophils # 0.1 10^3/uL (0.0-0.1); Basophils % 0.5 %; Eosinophils # 0.1 10^3/uL (0.0-0.8); Eosinophils % 1.1 %; Hematocrit 30.7 % (37.0-47.0); Hemoglobin 10.4 g/dL (11.5-15.3); Lymphocytes # 1.4 10^3/uL (0.8-4.8); Lymphocytes % 13.6 %; Mean Corpuscular HGB Conc 33.9 g/dL (30.0-36.0); Mean Corpuscular Hemoglobin 28.7 pg (28.0-34.0); Mean Corpuscular Volume 84.8 fL (81-99); Mean Platelet Volume 10.2 fL (7.4-10.4); Monocytes # 0.6 10^3/uL (0.2-0.9); Monocytes % 5.6 %; Neutrophils # 8.06 10^3/uL (1.8-7.7); Neutrophils % 78.7 %; Nucleated Red Blood Cells % 0 %; Platelet Count 297 10^3/cmm (130-400); Red Blood Count 3.62 10^6/uL (4.1-5.3); Red Cell Distribution Width 13.7 % (12.1-15.1); White Blood Count 10.2 10^3/uL (4.0-10.0)
[2020-10-19 19:51] LABS: Alanine Aminotransferase 8 U/L (0-33); Albumin Level 3.8 g/dL (3.5-5.2); Alkaline Phosphatase 82 IU/L (35-105); Anion Gap 14.9 (5-19); Aspartate Amino Transferase 22 U/L (0-32); Blood Urea Nitrogen 44 mg/dL (8-23); Calcium 8.9 mg/dL (8.5-10.5); Carbon Dioxide 40 mmol/L (22-29); Chloride 75 mmol/L (98-107); Globulin 3.7 g/dL (1.3-4.6); Glucose 127 mg/dL (65-115); Lipase 117 U/L (13-60); Osmolality Calculated 277 mOsm/kg (285-295); Sodium 127 mmol/L (136-145); Total Bilirubin 0.5 mg/dL (0.15-1.2); Total Protein 7.5 g/dL (6.6-8.7)
[2020-10-19 19:54] LABS: Potassium 2.9 mmol/L (3.5-5.1)
[2020-10-19] MEDS: potassium chloride ER 20 mEq Tablet 40 MEQ PO (20:10)
[2020-10-19 20:14] VITALS: BP 149/64; PULSE 67; RESP 13; O2SAT 100
[2020-10-19] MEDS: sodium chlor 0.45% +KCl 20 mEq 20 MEQ/1,000 ML BAG 100 MEQ IV (20:24)
[2020-10-19 21:03] VITALS: BP 160/64; PULSE 77; RESP 16; O2SAT 100
[2020-10-19 21:41] VITALS: BP 162/68; PULSE 63; RESP 17; TEMP 36.8; O2SAT 100
--- NOTE | 2020-10-19 23:57 | P.HP_ITS ---
Providers/Chief Complaint Admitting Physician: Rebekah Christian MD Primary Care Provider: Crystal Olivia MD Chief Complaint: Abdominal pain, nausea, constipation History of Present Illness Elizabeth Lima is a 75 year old female with a quite complex recent medical history who presented to the emergency room with chief complaint of abdominal pain, increasing nausea and worsening constipation. It is reported that she has had multiple forms of laxatives at the facility although personal review of medication administration records sent with her only indicate that she has been on MiraLAX. She does describe having had 2 fleets enemas recently. Last bowel movement was approximately 2 weeks ago. She has continued to pass gas. She has abdominal pain, generalized, cramping in nature, waxing and waning. She has had nausea and one episode of vomiting. Usually just has some dry heaves. Denies having had issues with constipation like this previously. She does take Tylenol No. 4 every 4-6 hours. She has as needed Tums but denies taking it very often. She is on chronic diuretic therapy and has had good result from current diuretic regimen. She has actually thought she might be a little bit dry. In the emergency room she received some Relistor and Colace. She was also given some IV fluids. Laboratory studies revealed hyponatremia and hypochloremia along with hypokalemia. She had some oral potassium replacement. KUB demonstrated significant volume of stool. She is being placed in observation status for further management of constipation, electrolyte replacement and close monitoring. I will note that over the last few months, Mrs. Lima has had multiple hospitalizations. She has chronic wound to her right heel and known peripheral artery disease. She has chronic kidney disease that is limited the ability to evaluate vascular status further. She has been found to have aortic stenosis and chronic diastolic CHF. She has had hypertensive emergencies associated with flash pulmonary edema and required intubation and mechanical ventilation twice. She had an upper GI bleed in July receiving a total of 7 units of packed red blood cells during the course of hospital stay. She was additionally treated with BiPAP therapy, covered for pneumonia. She is on oxygen chronically. She was last discharged from here on September 25. She subsequently was seen at PCPs office and arrangements were subsequently made for rehabilitation at a facility in [place]. Review of Systems Const: Reports: change in appetite; Denies: fever(s) or chills Eyes: Denies: change in vision ENMT: Reports: dry mouth; Denies: throat pain or nasal congestion Card: Reports: dyspnea on exertion; Denies: chest pain, palpitations or edema Resp: Denies: dyspnea, productive cough or non-productive cough GI: Reports: abdominal pain, nausea, vomiting, early satiety, constipation, GI cramping and belching; Denies: coffee ground emesis, diarrhea, hematochezia or melena Musc: Reports: back pain and decrease in muscle mass; Denies: joint redness Skin/Breast: Reports: non-healing lesions (Right heel); Denies: rash or pruritus Neuro: Reports: weakness in extremities and difficulty walking; Denies: dizziness Psych: Reports: anxiety and depression Anuj/Lymph: Denies: easy bruising or easy bleeding Medications/Allergies Home Medications Medication Instructions Recorded Confirmed Last Taken Type gabapentin 200 mg PO BID@08,12 07/23/20 10/19/20 10/19/20 History carvedilol [Coreg] 6.25 mg PO BID@,08/31/20 10/19/20 10/19/20 History hydralazine 50 mg PO TID@08,,18 09/23/20 10/19/20 10/19/20 History acetaminophen 300 mg-codeine 60 mg 1 tab PO Q6H PRN #30 tab 10/01/20 10/19/20 10/18/20 Rx tablet Prostat Sugar Free 30 ml PO DAILY@0800 10/19/20 10/20/20 10/19/20 History Tums [place] 500 mg PO Q4H PRN 10/19/20 10/20/20 Unknown History Zofran 4 mg IV Q4H PRN 10/19/20 10/20/20 Unknown History ascorbic acid (vitamin C) [Vitamin 500 mg PO DAILY@0800 10/19/20 10/19/20 10/19/20 History C] atorvastatin 20 mg PO DAILY@1800 10/19/20 10/19/20 10/18/20 History citalopram 10 mg PO BEDTIME@1800 10/19/20 10/19/20 10/18/20 History ferrous sulfate 325 mg PO DAILY@0800 10/19/20 10/19/20 10/19/20 History furosemide 80 mg PO BID@0600,1200 10/19/20 10/19/20 10/19/20 History levofloxacin 500 mg PO Q2D 10/19/20 10/19/20 10/18/20 History metolazone 2.5 mg PO DAILY@0530 10/19/20 10/19/20 10/19/20 History multivitamin 1 tab PO DAILY@0800 10/19/20 10/19/20 10/19/20 History pantoprazole [Protonix] 40 mg PO DAILY@0500 10/19/20 10/19/20 10/19/20 History polyethylene glycol 3350 [Miralax] 17 g PO DAILY PRN 10/19/20 10/19/20 Unknown History potassium chloride 20 meq PO DAILY@0800 10/19/20 10/19/20 10/19/20 History zinc sulfate 220 mg PO DAILY@1800 10/19/20 10/19/20 10/18/20 History amlodipine 5 mg PO DAILY@0800 10/20/20 10/20/20 10/19/20 History ondansetron HCl [Zofran] 4 mg PO Q4H PRN 10/20/20 10/20/20 10/19/20 History Allergies Allergy/AdvReac Type Severity Reaction Status Date / Time diclofenac [From Voltaren] Allergy Intermediate Wound Verified 10/01/20 16:01 metformin Allergy ADR-Diarrhe Verified 10/01/20 16:01 a mold Allergy Unknown Verified 10/01/20 16:01 FLU SHOT Allergy Unknown Uncoded 09/29/20 14:05 PFSH Acute PFSH: Medical History (Updated 10/20/20 @ 01:38 by Rebekah Christian MD) Anemia Aortic stenosis on echo 07/2020: valve area 1.1 cm2, mean gradient 17.1 mmHg CKD (chronic kidney disease) stage 3, GFR 30-59 ml/min with GERARD in 07/2020 Critical lower limb ischemia Diabetes mellitus type II Diabetic ulcer of heel Diastolic CHF, chronic EF 55%, grade 2 Essential hypertension Fracture of lumbar spine (~09/2020) L2, from mechanical fall GI bleed (~07/2020) upper during hospitalization, while on prophylactic anticoagulation, required transfusion of 7 units of blood History of cardiovascular stress test (~08/2020) moderate area of persistent decreased uptake in the mid and apical anterior, mid inferolateral and apical segments with no significant reversibility however did have elevated TID ratio at 1.4 suggesting possible endocardial ischemia; managed medically due to CKD History of mechanical ventilation for respiratory failure from hypertensive emergency and flash pulmonary edema 07/2020; for CHF and pneumonia 08/2020 Hyperlipidemia NSTEMI (non-ST elevated myocardial infarction) suspected type II process in 07/2020 and 08/2020, has not had cath due to CKD. On home oxygen therapy Peripheral arterial disease Surgical History (Updated 10/20/20 @ 00:45 by Rebekah Christian MD) History of esophagogastroduodenoscopy (EGD) (08/01/20) gastritis, duodenitis with some linear erosions in the stomach after NGT History of thoracentesis bilateral 08/2020, transudative right 09/2020 Surgical history unknown Hysterectomy documented previously, but patient still appears to have her uterus on her CAT scan Family History Other Cancer Rheumatoid arthritis Social History (Updated 10/20/20 @ 00:51 by Rebekah Christian MD) Smoking and tobacco status: never smoked Second hand smoke exposure: No Alcohol intake: never Lives independently: No Housing: [facility] Marital status: / Current occupational status: retired History of recent travel: No Current gender identity: Female Female Reproductive History: Para: 2 Vitals/I&O/Wt Last Vital Signs Temp 98.3 F 10/19/20 21:41 Pulse 63 10/19/20 21:41 Resp 17 10/19/20 21:41 BP 162/68 10/19/20 21:41 Pulse Ox 100 10/19/20 21:41 10/19/20 10/19/20 10/20/20 14:59 22:59 06:59 Intake Total 500 / 500 Balance 500 / 500 Weight last 48 hrs Weight 48.081 kg (lowest weight since 07/2020) Physical Exam Const: OTHER: Alert, oriented x3, cooperative, anxious. Intermittent dry heaving and belching during my evaluation HENMT: OTHER: Normocephalic atraumatic, moist mucus membranes after receiving IV fluids in the emergency room, nasopharynx is clear Eye: OTHER: Pupils equally round and reactive to light, extraocular movements intact Neck/C-Spine: OTHER: Supple Resp: OTHER: Clear to auscultation bilaterally, no rales, rhonchi or wheezes noted, no accessory muscle use noted Cardio: OTHER: Regular rate and rhythm, strong pulses peripherally, no JVD, holosystolic murmur noted loudest at the right upper sternal border GI: OTHER: Abdomen soft, mild diffuse tenderness, no rebound or guarding, positive bowel sounds, nondistended : OTHER: Deferred Extremity: OTHER: No pitting edema, no cyanosis, no clubbing Neuro: OTHER: Face symmetric, speech clear, moves all extremities, muscle wasting noted in all extremities Psych: OTHER: Normal affect Skin: OTHER: Chronic ulcer to right heel with eschar formation, present on admission. Data : 10/19/20 19:02 10/19/20 19: Other Labs: Laboratory Results WBC 10.2 10^3/uL (4.0-10.0) H 10/19/20 19: RBC 3.62 10^6/uL (4.1-5.3) L 10/19/20 19: Hgb 10.4 g/dL (11.5-15.3) L 10/19/20 19: Hct 30.7 % (37.0-47.0) L 10/19/20 19: MCV 84.8 fL (81-99) 10/19/20 19: MCH 28.7 pg (28.0-34.0) 10/19/20 19: MCHC 33.9 g/dL (30.0-36.0) 10/19/20 19: RDW 13.7 % (12.1-15.1) 10/19/20 19: Plt Count 297 10^3/cmm (130-400) 10/19/20 19: MPV 10.2 fL (7.4-10.4) 10/19/20 19: Neut % (Auto) 78.7 % 10/19/20 19: Lymph % (Auto) 13.6 % 10/19/20 19: [place] % (Auto) 5.6 % 10/19/20 19: Eos % (Auto) 1.1 % 10/19/20 19: Baso % (Auto) 0.5 % 10/19/20 19: Neut # (Auto) 8.06 10^3/uL (1.8-7.7) H 10/19/20 19:02 Lymph # (Auto) 1.4 10^3/uL (0.8-4.8) 10/19/20 19:02 [place] # (Auto) 0.6 10^3/uL (0.2-0.9) 10/19/20 19:02 Eos # (Auto) 0.1 10^3/uL (0.0-0.8) 10/19/20 19:02 Baso # (Auto) 0.1 10^3/uL (0.0-0.1) 10/19/20 19:02 Nucleated RBC % (auto) 0 % 10/19/20 19:02 Nucleated RBCs # 0.0 /100WBC 10/19/20 19:02 Sodium 127 mmol/L (136-145) L 10/19/20 19:02 Potassium 2.9 mmol/L (3.5-5.1) L 10/19/20 19:02 Chloride 75 mmol/L (98-107) L 10/19/20 19:02 Carbon Dioxide 40 mmol/L (22-29) H 10/19/20 19:02 Anion Gap 14.9 (5-19) 10/19/20 19:02 BUN 44 mg/dL (8-23) H 10/19/20 19:02 Creatinine 2.4 mg/dL (0.5-0.9) H 10/19/20 19:02 GFR Calculation Not Reportable 10/19/20 19:02 Glucose 127 mg/dL (65-115) H 10/19/20 19:02 Calculated Osmolality 277 mOsm/kg (285-295) L 10/19/20 19:02 Calcium 8.9 mg/dL (8.5-10.5) 10/19/20 19:02 Total Bilirubin 0.5 mg/dL (0.15-1.2) 10/19/20 19:02 AST 22 U/L (0-32) 10/19/20 19:02 ALT 8 U/L (0-33) 10/19/20 19:02 Alkaline Phosphatase 82 IU/L (35-105) 10/19/20 19:02 Total Protein 7.5 g/dL (6.6-8.7) 10/19/20 19:02 Albumin 3.8 g/dL (3.5-5.2) 10/19/20 19:02 Globulin 3.7 g/dL (1.3-4.6) 10/19/20 19:02 Lipase 117 U/L (13-60) H 10/19/20 19:02 Urine Color Yellow (Yellow) 10/20/20 01:20 Urine Appearance Clear (CLEAR) 10/20/20 01:20 Urine pH 7 (5-7) 10/20/20 01:20 Ur Specific [place] 1.005 (1.005-1.030) 10/20/20 01:20 Urine Protein 1+ (Negative) H 10/20/20 01:20 Urine Glucose (UA) Norm (Normal) 10/20/20 01:20 Urine Ketones 1+ (Negative) H 10/20/20 01:20 Urine Blood Neg (Negative) 10/20/20 01:20 Urine Nitrate Negative (Negative) 10/20/20 01:20 Urine Bilirubin Neg (Negative) 10/20/20 01:20 Urine Urobilinogen Norm mg/dL (Negative) 10/20/20 01:20 Ur Leukocyte Esterase Negative (Negative) 10/20/20 01:20 Ur Random Sodium 40 mmol/L 10/20/20 01:20 Urine Creatinine 54 mg/dL (28-217) 10/20/20 01:20 KUB: I personally reviewed and interpreted this imaging study as follows: My impression: Large amount of stool present, no air-fluid levels A&P Assessment and plan (1) Abdominal pain: Status: Acute Qualifiers: Abdominal location: generalized Qualified Code(s): R10.84 - Generalized abdominal pain (2) Constipation: Status: Acute Qualifiers: Constipation type: drug induced constipation Qualified Code(s): K59.03 - Drug induced constipation (3) Hyponatremia: Status: Acute (4) Acute hypokalemia: Status: Acute (5) Diastolic CHF, chronic: Status: Chronic (6) Aortic stenosis: Status: Chronic Qualifiers: Cardiac valve disease etiology: etiology unspecified Qualified Code(s): I35.0 - Nonrheumatic aortic (valve) stenosis (7) Essential hypertension: Status: Chronic (8) Nonhealing ulcer of heel: Status: Chronic (9) Peripheral arterial disease: Status: Chronic (10) CKD (chronic kidney disease) stage 3, GFR 30-59 ml/min: Status: Chronic Qualifiers: Chronic kidney disease stage 3 subtype: stage 3b (GFR 30-44) Qualified Code(s): N18.32 - Chronic kidney disease, stage 3b (11) Diabetes mellitus: Status: Chronic Qualifiers: Chronic kidney disease stage: stage 3 (moderate) Chronic kidney disease stage 3 subtype: stage 3b (GFR 30-44) Diabetes mellitus complication detail: with chronic kidney disease Diabetes mellitus complication status: with kidney complications Diabetes mellitus residential insulin use: without buttermilk drier operator use Diabetes mellitus type: type 2 Qualified Code(s): E11.21 - Type 2 diabetes mellitus with diabetic nephropathy; N18.32 - Chronic kidney disease, stage 3b Additional A&P Information Complex medical history particularly over the last 4 months with issues with recurrent pleural effusions, episodes of hypertensive emergency with flash pulmonary edema, at least 2 episodes requiring intubation and mechanical ventilation, GI bleed requiring 7 units of packed red blood cells, acute kidney injury on chronic kidney disease, known nonpressure ulcer of the heel and peripheral artery disease though has not had recent peripheral arteriogram to evaluate possibility of revascularization due to kidney dysfunction. Is on chronic oxygen therapy and has required BiPAP during several admissions. Observation admission currently We will start her on scheduled Colace and Senokot which I recommend continuing at discharge Oral bisacodyl and soapsuds enema Can consider lactulose or mag citrate but really need to keep an eye on overall volume status Home MiraLAX is currently held Received Relistor and dicyclomine in the emergency room Stop IV fluids Received both oral and IV potassium in the emergency room Strict I's and O's with 2 L fluid restriction given prior history Straight cath for urine as she has not been able to provide a specimen yet, check urine electrolytes Repeat chemistries in the morning Increase oral potassium to 20 twice daily regularly Presently we will continue oral diuretics with Lasix Hold metolazone currently and evaluate need to restart, has done better with current diuretic regimen in terms of maintaining more stable volume status longer Monitor need to provide IV diuresis acutely Continue home oxygen Check EKG given [facility] records suggesting chronic atrial fibrillation and previous cardiac arrest, 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 Machine reading of an EKG suggested atrial fibrillation but physician interpretation showed sinus rhythm one time. Continue home hydralazine and amlodipine Continue home statin therapy Continue usual wound care to the right heel Fall precautions Sliding scale insulin and Accu-Cheks Hold Levaquin which is on home medication list is an every other day medication for prophylaxis, needs some clarification of what this is for before resuming Continue home Tylenol with codeine, we do not have #4 here so we will use #3, continue gabapentin Recommend holding the Tums currently due to constipation Continue vitamin C and zinc, iron sulfate Hemoglobin appears stable and improving with management Continue home PPI Continue home citalopram Antiemetics as needed Supportive care otherwise Subcu heparin for DVT prophylaxis Anticipate discharge back to rehab facility once medically stable Plans discussed with patient and she was given opportunity to ask questions Full code Attestations Medical Necessity Statement*: Currently anticipated stay less than 2 midnights in a patient presenting with a primary complaint of constipation contributing to abdominal pain, nausea and some vomiting. This is not really a chronic problem for her by her description however she has been on some codeine control for a while. She is also chronically on diuretic therapy and for the first time and about 4 months appears to be euvolemic. All of these are contributing factors. She has comorbid conditions that are outlined above and quite significant. More aggressive constipation management is best done in a clinical setting where she can be monitored closely for acute cardiopulmonary changes and treated accordingly. Hopefully we will get some output from management ordered. Coding Level of Care Code Acute Clothing Cutter for Chg Fwd Diagnoses Abdominal pain R10.84 Abdominal location: generalized Constipation K59.03 Constipation type: drug induced constipation Hyponatremia E87.1 Acute hypokalemia E87.6 Diastolic CHF, chronic I50.32 Aortic stenosis I35.0 Cardiac valve disease etiology: etiology unspecified Essential hypertension I10 Nonhealing ulcer of heel L97.409 Peripheral arterial disease I73.9 CKD (chronic kidney disease) stage 3, GFR 30-59 ml/min N18.32 Chronic kidney disease stage 3 subtype: stage 3b (GFR 30-44) Diabetes mellitus E11.21; N18.32 Chronic kidney disease stage: stage 3 (moderate) Chronic kidney disease stage 3 subtype: stage 3b (GFR 30-44) Diabetes mellitus complication detail: with chronic kidney disease Diabetes mellitus complication status: with kidney complications 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
[2020-10-20] VITALS (10 sets, daily range): BP systolic 134–174; BP diastolic 53–69; PULSE 57–77; RESP 16–18; TEMP 36.6–37.4; O2SAT 99–100
[2020-10-20 01:41] LABS: Add Urine Microscopic? NO
[2020-10-20 01:44] LABS: Protein Urine 1+ (Negative); Specific Gravity, Urine 1.005 (1.005-1.030); Urine Appearance Clear (CLEAR); Urine Color Yellow (Yellow); pH Urine 7 (5-7)
[2020-10-20 01:45] LABS: Bilirubin Urine Neg (Negative); Blood Urine Neg (Negative); Glucose Urine UA Norm (Normal); Ketones Urine 1+ (Negative); Leukocyte Esterase Urine Negative (Negative); Nitrate Urine Negative (Negative); Urobilinogen Urine Norm (Negative)
[2020-10-20] MEDS: bisacodyl 5 mg Tablet 15 MG PO (02:21)
[2020-10-20] MEDS: acetaminophen-codeine 300-30mg Tablet 1 TAB PO (02:22)
[2020-10-20] MEDS: ondansetron 2 mg/ML SDV 2 mL 4 MG IVP (02:46)
[2020-10-20 02:49] LABS: Creatinine Urine, Random 54 mg/dL (28-217); Urine Random Sodium 40 mmol/L
--- NOTE | 2020-10-20 04:07 | PC.NURSE ---
Physician ordered soap suds enema, did not want fleets given
--- NOTE | 2020-10-20 04:51 | PC.NURSE ---
nurse gave soap sudd enema
[2020-10-20] MEDS: morphine 4 mg/mL SDV 1 mL 2 MG IVP (05:08)
[2020-10-20 05:48] LABS: Basophils % 0.4 %; Eosinophils # 0.2 10^3/uL (0.0-0.8); Hematocrit 29.4 % (37.0-47.0); Hemoglobin 9.9 g/dL (11.5-15.3); Lymphocytes # 1.4 10^3/uL (0.8-4.8); Lymphocytes % 15.2 %; Mean Corpuscular HGB Conc 33.7 g/dL (30.0-36.0); Mean Corpuscular Hemoglobin 28.5 pg (28.0-34.0); Mean Corpuscular Volume 84.7 fL (81-99); Mean Platelet Volume 10.2 fL (7.4-10.4); Monocytes # 0.7 10^3/uL (0.2-0.9); Monocytes % 7.6 %; Neutrophils # 6.88 10^3/uL (1.8-7.7); Neutrophils % 74.3 %; Nucleated Red Blood Cells % 0 %; Platelet Count 257 10^3/cmm (130-400); Red Blood Count 3.47 10^6/uL (4.1-5.3); White Blood Count 9.3 10^3/uL (4.0-10.0)
--- NOTE | 2020-10-20 06:00 | ECG_ITS ---
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 Measurements Intervals [place] Rate: 62 P: 65 NC: 155 QRS: -48 QRSD: 108 T: 6 QT: 458 QTc: 468 Interpretive Statements SINUS RHYTHM PATTERN CONSISTENT WITH PULMONARY DISEASE LEFT ANTERIOR FASCICULAR BLOCK [QRS AXIS <= -45, QR IN I, RS IN II] LEFT VENTRICULAR HYPERTROPHY AND ST-T CHANGE [VOLTAGE CRITERIA PLUS ST/T ABNORMALITY] Compared to ECG 09/23/2020 15:24:09 Left anterior fascicular block now present Left-axis deviation no longer present ST (T wave) deviation still present Electronically Signed On 10-21-2020 7:51:13 CDT by Kristy Faye M.D. [id number]
[2020-10-20 06:06] LABS: Alanine Aminotransferase 7 U/L (0-33); Albumin Level 3.3 g/dL (3.5-5.2); Alkaline Phosphatase 72 IU/L (35-105); Anion Gap 17.4 (5-19); Aspartate Amino Transferase 20 U/L (0-32); Blood Urea Nitrogen 45 mg/dL (8-23); Calcium 8.8 mg/dL (8.5-10.5); Carbon Dioxide 34 mmol/L (22-29); Chloride 81 mmol/L (98-107); Globulin 3.4 g/dL (1.3-4.6); Glucose 109 mg/dL (65-115); Magnesium 1.9 mg/dL (1.7-2.3); Osmolality Calculated 280 mOsm/kg (285-295); Phosphorus 4.2 mg/dL (2.5-4.5); Potassium 3.4 mmol/L (3.5-5.1); Sodium 129 mmol/L (136-145); Total Bilirubin 0.5 mg/dL (0.15-1.2); Total Protein 6.7 g/dL (6.6-8.7)
[2020-10-20 06:43] LABS: Glucose Point of Care 114 mg/dL (70-110)
--- NOTE | 2020-10-20 07:55 | CT_ITS ---
WS: [id number] CT ABDOMEN PELVIS TECHNIQUE: Noncontrast CT of the abdomen and pelvis with coronal and sagittal reformatted images. CLINICAL INFORMATION: sbo COMPARISON: CT July 30, 2020 DLP: 569.[address] scans at [facility] use at least one of these dose optimization techniques: automat ed exposure control; mA and/or kV adjustment per patient size (includes targeted exams where dose is matched to clinical indication); or iterative reconstruction. FINDINGS: Small right and tiny left pleural effusion with compressive atelectasis in the lung bases. Pleural effusions have improved from previous. Noncontrast liver is normal. Cholelithiasis. Splenic a rtery calcifications. Adrenal glands are normal. Noncontrast kidneys are unremarkable. No hydronephro sis. Normal caliber abdominal aorta. Aortic calcification. Mesenteric artery calcification. Normal GE junction. No abdominal or pelvic lymphadenopathy. Lobulated fibroid uterus. No free fluid in the abdomen or pelvis. Mild sigmoid constipation. No evidence of high-grade small or large bowel obstruction. Compression fracture with anterior wedging at L2 has progressed since CT lumbar spine September 23 with more compression along the mid and anterior vertebral body today. Compression measures approx imately 60% anteriorly. Minimal retropulsion posterior superior cortex with slight effacement of vent ral thecal sac. Mild central canal stenosis. CT/CT abdomen pelvis wo con [id number] IMPRESSION: 1. Mild sigmoid constipation. 2. No evidence of high-grade small or large bowel obstruction. 3. Small right greater than left pleural effusions with compressive atelectasi s in the lung bases. Pleural effusions are improved from previous. 4. Progression of the L2 compression fracture with more compression today talib uring proximal 60%. Minimal retropulsion of the posterior cortex with mild cent ral canal stenosis. 5. Cholelithiasis. 6. Fibroid uterus.
--- NOTE | 2020-10-20 07:56 | XR_ITS ---
WS: [id number] XR chest 1V portable [id number] REASON FOR EXAM: oedema and effusion FINDINGS: Compared to the previous examination of 09/23/2020, the small right pleural effusion has significantly decreased. No other interval change or new finding is noted. XR/XR chest 1V portable [id number] IMPRESSION: Resolving right pleural effusion.
--- NOTE | 2020-10-20 08:22 | PC.NURSE ---
patient taken to CT
[2020-10-20] MEDS: potassium chloride ER 20 mEq Tablet PO ×2 (09:44→17:19)
[2020-10-20] MEDS: hyDRALAzine 50 mg Tablet PO ×3 (09:44→17:19)
[2020-10-20] MEDS: ascorbic acid 500 mg Tablet PO (09:44)
[2020-10-20] MEDS: ferrous sulfate EC 325 mg Tablet PO (09:44)
[2020-10-20] MEDS: zinc gluconate 50 mg Tablet PO (09:44)
[2020-10-20] MEDS: gabapentin 100 mg Capsule 200 MG PO ×2 (09:44→11:35)
[2020-10-20] MEDS: carvedilol 6.25 mg Tablet PO ×2 (09:44→17:19)
[2020-10-20] MEDS: sennosides-docusate Tablet 2 TAB PO ×2 (09:44→17:21)
[2020-10-20] MEDS: amlodipine 5 mg Tablet PO (09:44)
[2020-10-20] MEDS: sennosides 8.6 mg Tablet 17.2 MG PO ×2 (09:45→17:19)
[2020-10-20] MEDS: docusate sodium 100 mg Capsule 200 MG PO ×2 (09:45→17:19)
[2020-10-20] MEDS: metoclopramide 5 mg/mL SDV 2 mL IVP (09:46)
--- NOTE | 2020-10-20 09:46 | PC.CHAP ---
Pastoral Care Encounter/Spiritual Assessment Type of Contact [] Declined inspecting supervisor visit [] Patient/Family/Request visit [] Outpatient visit [] Follow-up visit [] Physician referral [] Code/Alert [x] Routine visit [] Staff referral [] Actively dying [] Patient sleeping [] Family support [] [] Out of room [] Palliative care [] [x] Receiving care in room [] Pre-surgical visit [] Trauma [] Long length of stay [] ICU visit [] Other: Relational/Emotional Strength [] Patient feels connected with others/family/visitors/staff [] Distress [] Loneliness/isolation [] Abandonment Spirituality of Patient [] Person of Niyah [] Attends Confucianist of their Niyah [] Believes in Prayer [] Reads Bible or Evangelical materials [] There are Spiritual issues to be addressed Tear Down Worker Interventions [] Prayer [] Active listening [] Non-anxious presence [] Spiritual/emotional support [] Crisis/trauma care [] Spiritual counseling [] Bereavement support [] Provided bereavement packet [] Provided Bible/devotional materials [] Provided toy/stuffed animal, coloring book to patient or family member [] Provided Communion [] Anointing/[place] [] Salvation [] Completed spiritual assessment [] Other: Impact on Illness or Injury [] Angry [] Fearful [] Anxious [] Often cries [] Exhaustion [] Unable to work [] Unable to attend hindu [] Unable to walk/stand [] Unable to read [] Unable to drive [] Unable to eat/drink [] Unable to sleep [] Unable to be with family [] Patient intubated [] Other: Summary Time spent with patient
[2020-10-20 10:25] LABS: Glucose Point of Care 100 mg/dL (70-110)
[2020-10-20] MEDS: FUROsemide 40 mg Tablet 80 MG PO (11:34)
--- NOTE | 2020-10-20 12:45 | P.PN_ITS ---
Subjective Subjective: Interval history: Patient was seen and examined at the bedside, patient is stating that she was able to pass flatus yesterday but until 9 AM today, CT abdomen pelvis was requested which did not show any obstruction however consistent with sigmoid constipation, patient also was experiencing dry heaves in the morning when she stood up. I have added aggressive bowel regimen and enema Chest x-ray was requested which is showing resolving pleural effusion, KUB unremarkable Vitals/I&O/Wt Last Vital Signs Temp 97.9 F 10/20/20 10:38 Pulse 63 10/20/20 10:38 Resp 17 10/20/20 10:38 BP 134/55 10/20/20 10:38 Pulse Ox 100 10/20/20 10:38 10/19/20 10/20/20 10/20/20 22:59 06:59 14:59 Intake Total 500 / 500 1000 / 1500 Output Total 150 / 150 Balance 500 / 500 850 / 1350 Weight last 48 hrs Weight 48.081 kg Physical Exam Narrative: EXAM NARRATIVE: She was seen and examined this morning She was laying comfortably in her bed S1, S2 systolic murmur no signs of heart failure clinically looks dehydrated Awake alert oriented x3 GCS 15 Very pleasant during my evaluation Abdomen soft bowel sounds very sluggish otherwise soft no signs of peritonitis No extremity no edema gangrene ulcer No acute respiratory distress No skin changes of cellulitis gangrene or ulcer Appropriate mood and affect Data : 10/20/20 05:15 10/20/20 05:15 A&P Assessment and plan (1) Constipation due to pain medication: Status: Acute (2) Diastolic CHF, chronic: Status: Chronic (3) Acute hypokalemia: Status: Acute (4) Aortic stenosis: Status: Chronic Qualifiers: Cardiac valve disease etiology: etiology unspecified Qualified Code(s): I35.0 - Nonrheumatic aortic (valve) stenosis (5) CKD (chronic kidney disease) stage 3, GFR 30-59 ml/min: Status: Chronic Qualifiers: Chronic kidney disease stage 3 subtype: stage 3b (GFR 30-44) Qualified Code(s): N18.32 - Chronic kidney disease, stage 3b (6) Diabetes mellitus: Status: Chronic Qualifiers: Diabetes mellitus type: type 2 Diabetes mellitus vermin exterminator insulin use: without long-term use Diabetes mellitus complication status: with kidney complications Diabetes mellitus complication detail: with chronic kidney disease Chronic kidney disease stage: stage 3 (moderate) Chronic kidney disease stage 3 subtype: stage 3b (GFR 30-44) Qualified Code(s): E11.21 - Type 2 diabetes mellitus with diabetic nephropathy; N18.32 - Chronic kidney disease, stage 3b (7) Peripheral arterial disease: Status: Chronic Additional A&P Information Opiate-induced constipation Patient has been getting Tylenol 3 for her foot pain Sigmoid constipation revealed on CT abdomen pelvis no signs of obstruction no stomach distention No need of NG tube I will give her aggressive bowel regimen with enema, senna S twice a day and metoclopramide x1 today Her abdomen is soft no signs of peritonitis KUB is unremarkable I would hold off on adding naltrexone for now, will try if her constipation is not getting better Diastolic congestive heart failure: No acute exacerbation her pleural effusions are improved as compared to previous x-ray No active signs of orthopnea or PND she is laying flat without any problems I would hold her diuretics for now Aortic stenosis: No active chest pain denying syncopal events no active shortness of breath Peripheral arterial disease No pain at the resting Would recommend Tylenol without codeine for future usage for foot pain with SSRI versus SNRI No signs of ischemia Chronic kidney disease: In last 90 days her creatinine seems to be fluctuating between 2-2.5 I would say she is at baseline with her active dehydration and constipation Hyponatremia hypokalemia with hypochloremic alkalosis Secondary to vomiting No active emesis in last 48 hours Try Reglan x1 today No sign of obstruction Full code Consistent carb diet DVT prophylaxis: Heparin Anticipating discharge back to assisted if her constipation improves nara jordan Attestations Medical Necessity Statement*: Sigmoid constipation needs aggressive bowel regimen for opiate-induced constipation Time Spent in Patient Care: 30mins Coding Level of Care Code Acute Independent Trader for [facility] Fwd Diagnoses Constipation due to pain medication K59.03 Diastolic CHF, chronic I50.32 Acute hypokalemia E87.6 Aortic stenosis I35.0 Cardiac valve disease etiology: etiology unspecified CKD (chronic kidney disease) stage 3, GFR 30-59 ml/min N18.32 Chronic kidney disease stage 3 subtype: stage 3b (GFR 30-44) Diabetes mellitus E11.21; N18.32 Diabetes mellitus type: type 2 Diabetes mellitus long-term insulin use: without long-term use Diabetes mellitus complication status: with kidney complications Diabetes mellitus complication detail: with chronic kidney disease Chronic kidney disease stage: stage 3 (moderate) Chronic kidney disease stage 3 subtype: stage 3b (GFR 30-44) Peripheral arterial disease I73.9
[2020-10-20] MEDS: naloxone 0.4 mg/ml SDV IVP (14:15)
[2020-10-20] MEDS: sodium chlor 0.9% + KCl 40 mEq 40 MEQ/1,000 ML BAG 30 MEQ IV (14:16)
[2020-10-20] MEDS: Fleet Enema 133 mL Enema PR (14:25)
--- NOTE | 2020-10-20 15:25 | PC.NURSE ---
Patient had large BM from enema, notified Dr Arreaga.
[2020-10-20 15:51] LABS: Glucose Point of Care 109 mg/dL (70-110)
[2020-10-20] MEDS: citalopram 20 mg Tablet 10 MG PO (17:19)
[2020-10-20 20:26] LABS: Glucose Point of Care 125 mg/dL (70-110)
[2020-10-21] VITALS (8 sets, daily range): BP systolic 106–161; BP diastolic 57–63; PULSE 56–67; RESP 17–18; TEMP 36.9–37.5; O2SAT 98–100
[2020-10-21] MEDS: pantoprazole DR 40 mg Tablet PO (05:51)
[2020-10-21 05:52] LABS: Alanine Aminotransferase 8 U/L (0-33); Albumin Level 3.3 g/dL (3.5-5.2); Alkaline Phosphatase 67 IU/L (35-105); Anion Gap 13.3 (5-19); Aspartate Amino Transferase 23 U/L (0-32); Blood Urea Nitrogen 44 mg/dL (8-23); Calcium 8.7 mg/dL (8.5-10.5); Carbon Dioxide 36 mmol/L (22-29); Chloride 85 mmol/L (98-107); Globulin 3.2 g/dL (1.3-4.6); Glucose 91 mg/dL (65-115); Magnesium 1.9 mg/dL (1.7-2.3); Osmolality Calculated 283 mOsm/kg (285-295); Phosphorus 3.4 mg/dL (2.5-4.5); Potassium 3.3 mmol/L (3.5-5.1); Sodium 131 mmol/L (136-145); Total Bilirubin 0.4 mg/dL (0.15-1.2); Total Protein 6.5 g/dL (6.6-8.7)
[2020-10-21 06:09] LABS: Basophils # 0.1 10^3/uL (0.0-0.1); Basophils % 0.8 %; Eosinophils # 0.5 10^3/uL (0.0-0.8); Eosinophils % 4.9 %; Hematocrit 28.5 % (37.0-47.0); Hemoglobin 9.5 g/dL (11.5-15.3); Lymphocytes # 2.1 10^3/uL (0.8-4.8); Lymphocytes % 20.3 %; Mean Corpuscular HGB Conc 33.3 g/dL (30.0-36.0); Mean Corpuscular Hemoglobin 29.1 pg (28.0-34.0); Mean Corpuscular Volume 87.2 fL (81-99); Mean Platelet Volume 10.6 fL (7.4-10.4); Monocytes # 0.9 10^3/uL (0.2-0.9); Monocytes % 8.6 %; Neutrophils # 6.57 10^3/uL (1.8-7.7); Neutrophils % 64.9 %; Nucleated Red Blood Cells % 0 %; Platelet Count 253 10^3/cmm (130-400); Red Blood Count 3.27 10^6/uL (4.1-5.3); Red Cell Distribution Width 14.3 % (12.1-15.1); White Blood Count 10.1 10^3/uL (4.0-10.0)
[2020-10-21 06:25] LABS: Glucose Point of Care 100 mg/dL (70-110)
--- NOTE | 2020-10-21 06:39 | PC.NURSE ---
CHECKED PT AND THEY WERE DRY.
[2020-10-21] MEDS: zinc gluconate 50 mg Tablet PO (08:00)
[2020-10-21] MEDS: amlodipine 5 mg Tablet PO (08:00)
[2020-10-21] MEDS: carvedilol 6.25 mg Tablet PO ×2 (08:00→18:29)
[2020-10-21] MEDS: ascorbic acid 500 mg Tablet PO (08:00)
[2020-10-21] MEDS: sennosides 8.6 mg Tablet 17.2 MG PO (08:01)
[2020-10-21] MEDS: sennosides-docusate Tablet 2 TAB PO (08:01)
[2020-10-21] MEDS: ferrous sulfate EC 325 mg Tablet PO (08:01)
[2020-10-21] MEDS: docusate sodium 100 mg Capsule 200 MG PO (08:01)
[2020-10-21] MEDS: hyDRALAzine 50 mg Tablet PO ×3 (08:01→18:29)
[2020-10-21] MEDS: potassium chloride ER 20 mEq Tablet PO ×2 (08:01→18:29)
[2020-10-21] MEDS: gabapentin 100 mg Capsule 200 MG PO ×2 (08:01→13:15)
--- NOTE | 2020-10-21 08:18 | PC.NURSE ---
Nurse notified of blood pressure 160/61
--- NOTE | 2020-10-21 09:36 | P.DS_ITS ---
Discharge Providers Date of Admission: 10/19/20 20:21 Date of Discharge: October 21, 2020 Attending Provider at Admission: Rebekah Christian MD Attending Provider at Discharge: Jin Arreaga MD Primary Care Provider: Crystal Olivia MD Diagnoses at Discharge Discharge Diagnosis (1) Constipation due to pain medication: Status: Acute (2) Diastolic CHF, chronic: Status: Chronic Permanent problem details: EF 55%, grade 2 (3) Acute hypokalemia: Status: Acute (4) Aortic stenosis: Status: Chronic Permanent problem details: on echo 07/2020: valve area 1.1 cm2, mean gradient 17.1 mmHg Qualifiers: Cardiac valve disease etiology: etiology unspecified Qualified Code(s): I35.0 - Nonrheumatic aortic (valve) stenosis (5) CKD (chronic kidney disease) stage 3, GFR 30-59 ml/min: Status: Chronic Permanent problem details: with GERARD in 07/2020 Qualifiers: Chronic kidney disease stage 3 subtype: stage 3b (GFR 30-44) Qualified Code(s): N18.32 - Chronic kidney disease, stage 3b (6) Diabetes mellitus: Status: Chronic Permanent problem details: type II Qualifiers: Diabetes mellitus type: type 2 Diabetes mellitus intermediate insulin use: without intermediate use Diabetes mellitus complication status: with kidney comp lications Diabetes mellitus complication detail: with chronic kidney disease Chronic kidney disease stage: stage 3 (moderate) Chronic kidney disease stage 3 subtype: stage 3b (GFR 30-44) Qualified Code(s): E11.21 - Type 2 diabetes mellitus with diabetic nephropathy; N18.32 - Chronic kidney disease, stage 3b (7) Peripheral arterial disease: Status: Chronic Reason for Visit Reason for Visit: Abdominal pain, nausea, constipation Hospital Course Hospital Course HPI done by Dr. Christian on 10/19 Elizabeth Lima is a 75 year old female with a quite complex recent medical history who presented to the emergency room with chief complaint of abdominal pain, increasing nausea and worsening constipation. It is reported that she has had multiple forms of laxatives at the facility although personal review of medication administration records sent with her only indicate that she has been on MiraLAX. She does describe having had 2 fleets enemas recently. Last bowel movement was approximately 2 weeks ago. She has continued to pass gas. She has abdominal pain, generalized, cramping in nature, waxing and waning. She has had nausea and one episode of vomiting. Usually just has some dry heaves. Denies having had issues with constipation like this previously. She does take Tylenol No. 4 every 4-6 hours. She has as needed Tums but denies taking it very often. She is on chronic diuretic therapy and has had good result from current diuretic regimen. She has actually thought she might be a little bit dry. In the emergency room she received some Relistor and Colace. She was also given some IV fluids. Laboratory studies revealed hyponatremia and hypochloremia along with hypokalemia. She had some oral potassium replacement. KUB demonstrated significant volume of stool. I will note that over the last few months, Mrs. Lima has had multiple hospitalizations. She has chronic wound to her right heel and known peripheral artery disease. She has chronic kidney disease that is limited the ability to evaluate vascular status further. She has been found to have aortic stenosis and chronic diastolic CHF. She has had hypertensive emergencies associated with flash pulmonary edema and required intubation and mechanical ventilation twice. She had an upper GI bleed in July receiving a total of 7 units of packed red blood cells during the course of hospital stay. She was additionally treated with BiPAP therapy, covered for pneumonia. She is on oxygen chronically. She was last discharged from here on September 25. She subsequently was seen at PCPs office and arrangements were subsequently made for rehabilitation at a facility in [place]. Hospital course: Patient was given enemas and naloxone 0.4 mg IV push x1, CT abdomen did not reveal any small or large bowel obstruction. Patient had 2 bowel movements. She is passing flatus and this morning she is endorsing having a large bowel movement. She does complain of lower abdominal pain however it is soft on palpation with active bowel sounds I do believe this is related to her sigmoid constipation which will get better over the time. Her hemoglobin has stayed stable 9.5 with normal blood pressure, she can take p.o. potassium today her potassium is 3.3 her creatinine is at baseline 2.4. Her chest x-ray is showing resolution of right pleural effusion as compared to previous pleural effusion sizes in comparison. She did well on 3 L nasal cannula. On discharge she will be given aggressive bowel regimen, in future please avoid opioids, and use MiraLAX, senna S twice a day if you are really needing opioids for pain control. Her urinalysis was unremarkable she will be given 7-day regimen of Levaquin for dysuria. [address] [address] [address] Scan Report Signed Patient: Elizabeth Lima #: [id number] : 3Acct#:[id number] Age/Sex: 75 / FADM Date: 10/19/20 Loc: [facility]/Bed: 254-[address]: Jin Arreaga MD Ordering Provider/Ordering MD: Jin Arreaga MD Date of Service: 10/20/20 Procedure(s): CT abdomen pelvis wo con [id number] Accession Number(s): [id number] Report Number: [id number] WS: [id number] CT ABDOMEN PELVIS TECHNIQUE: Noncontrast CT of the abdomen and pelvis with coronal and sagittal reformatted images. CLINICAL INFORMATION: sbo COMPARISON: CT July 30, 2020 DLP: 569.[address] scans at use at least one of these dose optimization techniques: automated exposure control; mA and/or kV adjustment per patient size (includes targeted exams where dose is matched to clinical indication); or iterative reconstruction. FINDINGS: Small right and tiny left pleural effusion with compressive atelectasis in the lung bases. Pleural effusions have improved from previous. Noncontrast liver is normal. Cholelithiasis. Splenic artery calcifications. Adrenal glands are normal. Noncontrast kidneys are unremarkable. No hydronephrosis. Normal caliber abdominal aorta. Aortic calcification. Mesenteric artery calcification. Normal GE junction. No abdominal or pelvic lymphadenopathy. Lobulated fibroid uterus. No free fluid in the abdomen or pelvis. Mild sigmoid constipation. No evidence of high-grade small or large bowel obstruction. Compression fracture with anterior wedging at L2 has progressed since CT lumbar spine September 23, 2020 with more compression along the mid and anterior vertebral body today. Compression measures approximately 60% anteriorly. Minimal retropulsion posterior superior cortex with slight effacement of ventral thecal sac. Mild central canal stenosis. CT/CT abdomen pelvis wo con [id number] IMPRESSION: 1. Mild sigmoid constipation. 2. No evidence of high-grade small or large bowel obstruction. 3. Small right greater than left pleural effusions with compressive atelectasis in the lung bases. Pleural effusions are improved from previous. 4. Progression of the L2 compression fracture with more compression today measuring proximal 60%. Minimal retropulsion of the posterior cortex with mild central canal stenosis. 5. Cholelithiasis. 6. Fibroid uterus. Physical Exam Narrative: EXAM NARRATIVE: Laying comfortably in her bed Saturating well on treatment nasal cannula S1, S2 no signs of heart failure Patient has no orthopnea PND no active signs of heart failure Looks euvolemic on clinical examination Abdomen soft no tenderness on deep palpation however she is complaining of very mild pain in lower quadrants EOMI, PERRLA no neurological deficit Discharge Data Data Completed and Pending: Completed Studies During Hospitalization Category Date Time Status CT abdomen pelvis wo con [id number] Rout ine Cat Scan 10/20/20 07:55 Completed XR KUB portable 7 [id number] Stat Exams 10/19/20 16:23 Completed XR chest 1V aung ble [id number] Routine Exams 10/20/20 07:56 Completed Labs from last 24 hours 10/21/20 10/21/20 10/21/20 06:15 05:00 05:00 WBC 10.1 H RBC 3.27 L Hgb 9.5 L Hct 28.5 L MCV 87.2 MCH 29.1 MCHC 33.3 RDW 14.3 Plt Count 253 MPV 10.6 H Neut % (Auto) 64.9 Lymph % (Auto) 20.3 [facility] % (Auto) 8.6 Eos % (Auto) 4.9 Baso % (Auto) 0.8 Neut # (Auto) 6.57 Lymph # (Auto) 2.1 [facility] # (Auto) 0.9 Eos # (Auto) 0.5 Baso # (Auto) 0.1 Nucleated RBC % (a uto) 0 Nucleated RBCs # 0.0 Sodium 131 L Potassium 3.3 L Chloride 85 L Carbon Dioxide 36 H Anion Gap 13.3 BUN 44 H Creatinine 2.4 H GFR Calculation Not Reportable Glucose 91 POC Glucose 100 Calculated Osmolal ity 283 L Calcium 8.7 Phosphorus 3.4 Magnesium 1.9 Total Bilirubin 0.4 AST 23 ALT 8 Alkaline Phosphata se 67 Total Protein 6.5 L Albumin 3.3 L Globulin 3.2 10/20/20 10/20/20 10/20/20 19:57 15:48 10:17 WBC RBC Hgb Hct MCV MCH MCHC RDW Plt Count MPV Neut % (Auto) Lymph % (Auto) [facility] % (Auto) Eos % (Auto) Baso % (Auto) Neut # (Auto) Lymph # (Auto) [facility] # (Auto) Eos # (Auto) Baso # (Auto) Nucleated RBC % (a uto) Nucleated RBCs # Sodium Potassium Chloride Carbon Dioxide Anion Gap BUN Creatinine GFR Calculation Glucose POC Glucose 125 H 109 100 Calculated Osmolal ity Calcium Phosphorus Magnesium Total Bilirubin AST ALT Alkaline Phosphata se Total Protein Albumin Globulin Vitals: Last Vital Signs Temp 98.5 F 10/21/20 08:00 Pulse 61 10/21/20 08:00 Resp 17 10/21/20 08:00 BP 160/61 10/21/20 08:00 Pulse Ox 98 10/21/20 08:00 Discharge Plan Discharge Patient Disposition: Xfer SNF Condition: Stable Prescriptions: New Senna Plus 8.6-50 mg capsule 1 tab-cap PO BID PRN (Reason: constipation) 15 Days Qty: 30 RF: 0 Enema 19-7 gram/118 mL enema 118 ml LA PRN 2 Days RF: 0 Continued hydralazine 50 mg tablet 50 mg PO TID@08,12,18 RF: 0 gabapentin 100 mg capsule 200 mg PO BID@08,12 RF: 0 carvedilol [Coreg] 6.25 mg tablet 6.25 mg PO BID@,18 RF: 0 multivitamin Tablet 1 tab PO DAILY@0800 RF: 0 zinc sulfate 220 mg Tablet 220 mg PO DAILY@1800 RF: 0 Vitamin C 500 mg Tablet 500 mg PO DAILY@0800 RF: 0 ferrous sulfate 325 mg (65 mg iron) Tablet 325 mg PO DAILY@0800 RF: 0 Miralax 17 gram/dose Powder 17 g PO DAILY PRN (Reason: Constipation) RF: 0 Prostat Sugar Free 30 ml PO DAILY@0800 RF: 0 Tums [place] 500 mg PO Q4H PRN (Reason: Nausea) RF: 0 Zofran 4 mg IV Q4H PRN (Reason: NAUSEA/VOMITING) RF: 0 atorvastatin 10 mg tablet 20 mg PO DAILY@1800 RF: 0 citalopram 10 mg tablet 10 mg PO BEDTIME@1800 RF: 0 Protonix 40 mg tablet,delayed release (DR/EC) 40 mg PO DAILY@0500 RF: 0 potassium chloride 20 mEq tablet extended release 20 meq PO DAILY@0800 RF: 0 amlodipine 5 mg tablet 5 mg PO DAILY@0800 RF: 0 Zofran 4 mg Tablet 4 mg PO Q4H PRN (Reason: Nausea) RF: 0 Changed furosemide 80 mg tablet 40 mg PO DAILY 30 Days Qty: 30 RF: 0 levofloxacin 500 mg tablet 750 mg PO DAILY 7 Days Qty: 7 RF: 0 Discontinued acetaminophen-codeine 300-60 mg tablet 1 tab PO Q6H PRN (Reason: pain) Qty: 30 RF: 0 metolazone 2.5 mg tablet 2.5 mg PO DAILY@0530 RF: 0 Discharge Orders: Discharge Order (Routine); Ordered 10/21/20 Ordered By: Jin Arreaga Referrals: Crystal Olivia MD [Primary Care Provider] - 10/27/20 9:20 am (APPOINTMENT AT [facility]) Discharge Diet: Cardiac Discharge Activity: Increase activity as tolerated Patient Instructions: Abdominal Pain (ED) Activity Restrictions/Additional Instructions: Please take Levaquin for next 7 days for UTI For constipation you can take senna S, MiraLAX and use enema on as needed basis It was due to opioids that you were getting for your foot pain I would recommend using Tylenol and if opioids are being prescribed use aggressive bowel regimen Discharge Attestations Time Spent in Discharge Care*: less than 30 min Status at Discharge: Cognitive status at discharge: cognitively intact , Behavioral status at discharge: cooperative , Quality Metrics Clinical Quality Measures During this hospital stay, did patient experience: None Coding Level of Care Code Acute Chg [facility] note Diagnoses Constipation due to pain medication K59.03 Diastolic CHF, chronic I50.32 Acute hypokalemia E87.6 Aortic stenosis I35.0 Cardiac valve disease etiology: etiology unspecified CKD (chronic kidney disease) stage 3, GFR 30-59 ml/min N18.32 Chronic kidney disease stage 3 subtype: stage 3b (GFR 30-44) Diabetes mellitus E11.21; N18.32 Diabetes mellitus type: type 2 Diabetes mellitus exterminator helper insulin use: without exterminator helper use Diabetes mellitus complication status: with kidney complications Diabetes mellitus complication detail: with chronic kidney disease Chronic kidney disease stage: stage 3 (moderate) Chronic kidney disease stage 3 subtype: stage 3b (GFR 30-44) Peripheral arterial disease I73.9
[2020-10-21] MEDS: naloxone 0.4 mg/ml SDV IVP (11:03)
[2020-10-21 11:08] LABS: Glucose Point of Care 136 mg/dL (70-110)
[2020-10-21 16:56] LABS: Glucose Point of Care 117 mg/dL (70-110)
[2020-10-21] MEDS: citalopram 20 mg Tablet 10 MG PO (18:30)
[2020-10-21 20:58] LABS: Glucose Point of Care 211 mg/dL (70-110)
[2020-10-22] VITALS (8 sets, daily range): BP systolic 146–157; BP diastolic 53–68; PULSE 53–60; RESP 16–17; TEMP 36.7–37.2; O2SAT 98–100
[2020-10-22] MEDS: pantoprazole DR 40 mg Tablet PO (05:55)
[2020-10-22 06:55] LABS: Glucose Point of Care 104 mg/dL (70-110)
[2020-10-22] MEDS: zinc gluconate 50 mg Tablet PO (07:54)
[2020-10-22] MEDS: carvedilol 6.25 mg Tablet PO (07:55)
[2020-10-22] MEDS: gabapentin 100 mg Capsule 200 MG PO (07:55)
[2020-10-22] MEDS: sennosides 8.6 mg Tablet 17.2 MG PO (07:55)
[2020-10-22] MEDS: docusate sodium 100 mg Capsule 200 MG PO (07:55)
[2020-10-22] MEDS: potassium chloride ER 20 mEq Tablet PO (07:55)
[2020-10-22] MEDS: sennosides-docusate Tablet 2 TAB PO (07:55)
[2020-10-22] MEDS: amlodipine 5 mg Tablet PO (07:55)
[2020-10-22] MEDS: ferrous sulfate EC 325 mg Tablet PO (07:55)
[2020-10-22] MEDS: hyDRALAzine 50 mg Tablet PO (07:56)
[2020-10-22] MEDS: ascorbic acid 500 mg Tablet PO (07:56)
[2020-10-22 11:49] LABS: Glucose Point of Care 148 mg/dL (70-110)
== END 2020-10-22 14:15 | disposition skilled nursing facility (03) ==
LOC: ER 20:19 → MEDSURG 20:45
PROVIDERS: Nurse Practitioner Family; Admitting Provider Hospitalist; Emergency Provider Emergency Medicine; PCP Family Medicine; Visit Provider Internal Medicine
DX: K59.03 Drug induced constipation (principal); I13.0 Hypertensive heart and chronic kidney disease with heart failure and stage 1 through stage 4 chronic kidney disease, or unspecified chronic kidney disease; E11.22 Type 2 diabetes mellitus with diabetic chronic kidney disease; N18.32 Chronic kidney disease, stage 3b; I50.32 Chronic diastolic (congestive) heart failure; E87.6 Hypokalemia; I35.0 Nonrheumatic aortic (valve) stenosis; E11.21 Type 2 diabetes mellitus with diabetic nephropathy; I73.9 Peripheral vascular disease, unspecified; E87.1 Hypo-osmolality and hyponatremia; L97.409 Non-pressure chronic ulcer of unspecified heel and midfoot with unspecified severity; E11.621 Type 2 diabetes mellitus with foot ulcer
CPT/HCPCS: 36415; 36416; 51702; 71045; 74018; 74176; 80053; 81003; 82575; 82962; 83690; 83735; 84100; 84300; 85025; 93005; 96365; 96366; 96367; 96372; 96375; 99285; G0378; J1815; J2212; J2270; J2310; J2405; J2765; J7040

== ENCOUNTER 2021-07-02 22:03 | Inpatient (IN) | payer MEDICARE, SELFPAY ==
[2021-07-02 22:04] VITALS: BP 149/65; PULSE 71; RESP 18; TEMP 36.5; O2SAT 96; BMI 50.6
--- NOTE | 2021-07-02 22:23 | XRR_ITS ---
PROCEDURE INFORMATION: Exam: XR Chest Exam date and time: 07/02/2021 10:23 PM Age: 75 years old Clinical indication: Shortness of breath; Prior surgery; Surgery type: Heart valve; Patient HX: SOB, swelling bilateral hands/feet TECHNIQUE: Imaging protocol: XR of the chest. Views: 1 view. COMPARISON: CR XR chest 1V portable [id number] 10/20/2020 8:07 AM FINDINGS: Lungs: Atelectasis at the right lung base. Pleural spaces: Bilateral moderate volume pleural effusions, right greater than left. No pneumothorax. Heart/Mediastinum: Cardiac valve replacement. No cardiomegaly. Bones/joints: Unremarkable. XR/XR chest 1V portable [id number] IMPRESSION: Bilateral moderate volume pleural effusions, right greater than left. Atelectasis at the right lung base. Radiation Dose CTDIVOL = (mGy): DLP = (mGy-cm)
--- NOTE | 2021-07-02 22:24 | ECG_ITS ---
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: : 1945 Requested By: Ja Francisco Order Number: [id number] Reading MD: JARED KEARNEY Measurements Intervals [place] Rate: 66 P: 38 [place]: 170 QRS: -47 QRSD: 130 T: 78 QT: 446 QTc: 470 Interpretive Statements SINUS RHYTHM LEFT ANTERIOR FASCICULAR BLOCK [QRS AXIS <= -45, QR IN I, RS IN II] POSSIBLE ANTERIOR MYOCARDIAL INFARCTION , OF INDETERMINATE AGE [30 ms Q WAVE IN V3/V4, OR R < 0.2 mV IN V4] Compared to ECG 10/20/2020 06:20:20 Myocardial infarct finding now present Left ventricular hypertrophy no longer present ST (T wave) deviation no longer present Electronically Signed On 07-05-2021 12:56:06 COMMERCIAL CONSTRUCTION ESTIMATOR by JARED KEARNEY [email or web address] [email or web address].[place] [employer] [place]/store/NU/[id number] f
--- NOTE | 2021-07-02 22:25 | ED_ITS ---
Documented by User: BRAXTON Lainez 07/02/21 22:55 HPI - SOB/Dyspnea General: Chief Complaint: Shortness of Breath/Dyspnea Stated Complaint: SOB Time Seen by Provider: 07/02/21 22:18 History of Present Illness: HPI Narrative: Patient here stating that she has had shortness of breath since she has had a aortic valve replacement procedure done. This was done a week ago at [facility] in [facility]. Patient said she was fine while she is on oxygen in the hospital but they sent her home without oxygen and she just felt short of breath. Also has a cardiac history and was told that she did have a need for stents probably 2 to 3 weeks done. And also patient has diabetes that has been controlled with medication but was taken off medication but while in the hospital. And was told she did not need diabetes medication anymore. MD elicited complaint: shortness of breath Context: other (Recent valve replacement surgery) Timing: constant Severity: mild Exacerbating factors: exertion Relieving factors: oxygen Associated symptoms: Reports no associated symptoms; Deny abdominal pain, chest pain, extremity pain, fever(s), nausea or vomiting Treatment prior to arrival: none Review of Systems Const: Denies: fever(s), chills or body aches Eyes: Denies: change in vision or blurry vision ENMT: Denies: throat pain or nasal congestion Card: Denies: chest pain or dyspnea on exertion Resp: Reports: dyspnea; Denies: productive cough or non-productive cough GI: Denies: abdominal pain, nausea or vomiting Musc: Denies: extremity pain Skin/Breast: Denies: rash Neuro: Denies: headache(s) Psych: Denies: anxiety or depression Anuj/Lymph: Denies: easy bruising [facility] ED PFSH: Medical History (Updated 10/23/20 @ 00:01 by ) Acute hypokalemia Anemia Aortic stenosis on echo 07/2020: valve area 1.1 cm2, mean gradient 17.1 mmHg CKD (chronic kidney disease) stage 3, GFR 30-59 ml/min with GERARD in 07/2020 Critical lower limb ischemia Diabetes mellitus type II Diabetic ulcer of heel Diastolic CHF, chronic EF 55%, grade 2 Essential hypertension Fracture of lumbar spine (~09/2020) L2, from mechanical fall GI bleed (~07/2020) upper during hospitalization, while on prophylactic anticoagulation, required transfusion of 7 units of blood History of cardiovascular stress test (~08/2020) moderate area of persistent decreased uptake in the mid and apical anterior, mid inferolateral and apical segments with no significant reversibility however did have elevated TID ratio at 1.4 suggesting possible endocardial ischemia; managed medically due to CKD History of mechanical ventilation for respiratory failure from hypertensive emergency and flash pulmonary edema 07/2020; for CHF and pneumonia 08/2020 Hyperlipidemia Hyponatremia Nonhealing ulcer of heel follows with [facility] NSTEMI (non-ST elevated myocardial infarction) suspected type II process in 07/2020 and 08/2020, has not had cath due to CKD. On home oxygen therapy Peripheral arterial disease Surgical History (Updated 10/20/20 @ 00:45 by Rebekah Christian MD) History of esophagogastroduodenoscopy (EGD) (08/01/20) gastritis, duodenitis with some linear erosions in the stomach after NGT History of thoracentesis bilateral 08/2020, transudative right 09/2020 Surgical history unknown Hysterectomy documented previously, but patient still appears to have her uterus on her CAT scan Family History Other Cancer Rheumatoid arthritis Social History (Updated 10/20/20 @ 00:51 by Rebekah Christian MD) Smoking and tobacco status: never smoked Second hand smoke exposure: No Alcohol intake: never Lives independently: No Housing: Halfway Marital status: / Current occupational status: retired History of recent travel: No Current gender identity: Female Female Reproductive History: Para: 2 Course Vital Signs: Vital signs: Vital Signs Temperature 97.7 F 07/02/21 22:04 Pulse Rate 71 07/02/21 22:04 Respiratory Rate 18 07/02/21 22:04 Blood Pressure 149/65 07/02/21 22:04 Pulse Oximetry 96 07/02/21 22:04 MDM - SOB/Dyspnea Lab Data: Labs: Lab Results 07/02/21 07/02/21 07/02/21 23:02 23:02 23:02 WBC 11.3 10^3/uL H 10 ^3/uL (4.0-10.0) RBC 3.16 10^6/uL L 10 ^6/uL (4.1-5.3) Hgb 9.1 g/dL L g/dL (11.5-15.3) Hct 28.7 % L % (37.0-47.0) MCV 90.8 fl fl (81-99) MCH 28.8 pg pg (28.0-34.0) MCHC 31.7 g/dL g/dL (30.0-36.0) RDW 16.7 % H % (12.1-15.1) Plt Count 374 10^3/cmm 10^3 /cmm (130-400) MPV 9.4 fL fL (7.4-10.4) Neut % (Auto) 76.4 % % Lymph % (Auto) 11.0 % % Yates % (Auto) 5.9 % % Eos % (Auto) 5.2 % % Baso % (Auto) 1.0 % % Neut # (Auto) 8.63 10^3/uL H 10 ^3/uL (1.8-7.7) Lymph # (Auto) 1.2 10^3/uL 10^3/ uL (0.8-4.8) Yates # (Auto) 0.7 10^3/uL 10^3/ uL (0.2-0.9) Eos # (Auto) 0.6 10^3/uL 10^3/ uL (0.0-0.8) Baso # (Auto) 0.1 10^3/uL 10^3/ uL (0.0-0.1) Nucleated RBC % (a uto) 0 % % Nucleated RBCs # 0.0 /100WBC /100W BC PT 13.90 SECONDS SEC ONDS (12.1-14.9) INR 1.04 (0.8-1.2) D-Dimer 9.17 ug/mIFEU H u g/mIFEU (0-0.59) Sodium 133 mmol/L L mmol /L (136-145) Potassium 4.3 mmol/L mmol/L (3.5-5.1) Chloride 100 mmol/L mmol/L (98-107) Carbon Dioxide 18 mmol/L L mmol/ L (22-29) Anion Gap 19.3 H (5-19) BUN 26 mg/dL H mg/dL (8-23) Creatinine 1.8 mg/dL H mg/dL (0.5-0.9) GFR Calculation Not Reportable Glucose 109 mg/dL mg/dL (65-115) Calculated Osmolal ity 281 mOsm/kg L mOs m/kg (285-295) Calcium 8.4 mg/dL L mg/dL (8.5-10.5) Total Bilirubin 0.5 mg/dL mg/dL (0.15-1.2) AST 30 U/L U/L (0-32) ALT 15 U/L U/L (0-33) Alkaline Phosphata se 125 IU/L H IU/L (35-105) Troponin T Baselin e Total Protein 7.1 g/dL g/dL (6.6-8.7) Albumin 3.8 g/dL g/dL (3.5-5.2) Globulin 3.3 g/dL g/dL (1.3-4.6) 07/02/21 23:02 WBC RBC Hgb Hct MCV MCH MCHC RDW Plt Count MPV Neut % (Auto) Lymph % (Auto) Yates % (Auto) Eos % (Auto) Baso % (Auto) Neut # (Auto) Lymph # (Auto) Yates # (Auto) Eos # (Auto) Baso # (Auto) Nucleated RBC % (a uto) Nucleated RBCs # PT INR D-Dimer Sodium Potassium Chloride Carbon Dioxide Anion Gap BUN Creatinine GFR Calculation Glucose Calculated Osmolal ity Calcium Total Bilirubin AST ALT Alkaline Phosphata se Troponin T Baselin e 93 ng/L H ng/L (0-10) Total Protein Albumin Globulin EKG Data^: EKG 1: EKG Interpretation Date: 07/02/21 EKG interpretation time: 22:44 Computer Generated Interpretation: Sinus rhythm left anterior fascicular block possible anterior AR Q wave in V3 V4 ventricular rate 66 bpm IN interval 170 ms QRS duration 130 ms QT is 446 ms Discharge Plan Discharge Prescriptions: No Action atorvastatin 10 mg tablet See Rx Instructions .ROUTE .COMPLEX Qty: 60 RF: 0 hydralazine 50 mg tablet 50 mg PO TID@,, RF: 0 gabapentin 100 mg capsule 200 mg PO BID@12 RF: 0 carvedilol [Coreg] 6.25 mg tablet 6.25 mg PO BID@ RF: 0 multivitamin Tablet 1 tab PO DAILY@0800 RF: 0 zinc sulfate 220 mg Tablet 220 mg PO DAILY@1800 RF: 0 Vitamin C 500 mg Tablet 500 mg PO DAILY@0800 RF: 0 ferrous sulfate 325 mg (65 mg iron) Tablet 325 mg PO DAILY@0800 RF: 0 Miralax 17 gram/dose Powder 17 g PO DAILY PRN (Reason: Constipation) RF: 0 Prostat Sugar Free 30 ml PO DAILY@0800 RF: 0 Tums Freshers 500 mg PO Q4H PRN (Reason: Nausea) RF: 0 Zofran 4 mg IV Q4H PRN (Reason: NAUSEA/VOMITING) RF: 0 citalopram 10 mg tablet 10 mg PO BEDTIME@1800 RF: 0 Protonix 40 mg tablet,delayed release (DR/EC) 40 mg PO DAILY@0500 RF: 0 potassium chloride 20 mEq tablet extended release 20 meq PO DAILY@0800 RF: 0 amlodipine 5 mg tablet 5 mg PO DAILY@0800 RF: 0 Zofran 4 mg Tablet 4 mg PO Q4H PRN (Reason: Nausea) RF: 0 furosemide 80 mg tablet 40 mg PO DAILY 30 Days Qty: 30 RF: 0 levofloxacin 500 mg tablet 750 mg PO DAILY 7 Days Qty: 7 RF: 0 Coding Level of Care Code ED Primary Grade Teacher for Chg Fwd Documented by User: Dinesh Swartz MD 07/03/21 00:11 HPI - SOB/Dyspnea General: Chief Complaint: Shortness of Breath/Dyspnea Stated Complaint: SOB Time Seen by Provider: 07/02/21 22:18 [facility] ED PFSH: Medical History (Updated 10/23/20 @ 00:01 by ) Acute hypokalemia Anemia Aortic stenosis on echo 07/2020: valve area 1.1 cm2, mean gradient 17.1 mmHg CKD (chronic kidney disease) stage 3, GFR 30-59 ml/min with GERARD in 07/2020 Critical lower limb ischemia Diabetes mellitus type II Diabetic ulcer of heel Diastolic CHF, chronic EF 55%, grade 2 Essential hypertension Fracture of lumbar spine (~09/2020) L2, from mechanical fall GI bleed (~07/2020) upper during hospitalization, while on prophylactic anticoagulation, required transfusion of 7 units of blood History of cardiovascular stress test (~08/2020) moderate area of persistent decreased uptake in the mid and apical anterior, mid inferolateral and apical segments with no significant reversibility however did have elevated TID ratio at 1.4 suggesting possible endocardial ischemia; managed medically due to CKD History of mechanical ventilation for respiratory failure from hypertensive emergency and flash pulmonary edema 07/2020; for CHF and pneumonia 08/2020 Hyperlipidemia Hyponatremia Nonhealing ulcer of heel follows with [facility] Reyes [facility] NSTEMI (non-ST elevated myocardial infarction) suspected type II process in 07/2020 and 08/2020, has not had cath due to CKD. On home oxygen therapy Peripheral arterial disease Surgical History (Updated 10/20/20 @ 00:45 by Rebekah Christian MD) History of esophagogastroduodenoscopy (EGD) (08/01/20) gastritis, duodenitis with some linear erosions in the stomach after NGT History of thoracentesis bilateral 08/2020, transudative right 09/2020 Surgical history unknown Hysterectomy documented previously, but patient still appears to have her uterus on her CAT scan Family History Other Cancer Rheumatoid arthritis Social History (Updated 10/20/20 @ 00:51 by Rebekah Christian MD) Smoking and tobacco status: never smoked Second hand smoke exposure: No Alcohol intake: never Lives independently: No Housing: Halfway Marital status: / Current occupational status: retired History of recent travel: No Current gender identity: Female Course Vital Signs: Vital signs: Vital Signs Temperature 97.7 F 07/02/21 22:04 Pulse Rate 71 07/02/21 22:04 Respiratory Rate 18 07/02/21 22:04 Blood Pressure 149/65 07/02/21 22:04 Pulse Oximetry 96 07/02/21 22:04 MDM - SOB/Dyspnea Lab Data: Labs: Lab Results 07/02/21 07/02/21 07/02/21 23:02 23:02 23:02 WBC 11.3 10^3/uL H 10 ^3/uL (4.0-10.0) RBC 3.16 10^6/uL L 10 ^6/uL (4.1-5.3) Hgb 9.1 g/dL L g/dL (11.5-15.3) Hct 28.7 % L % (37.0-47.0) MCV 90.8 fl fl (81-99) MCH 28.8 pg pg (28.0-34.0) MCHC 31.7 g/dL g/dL (30.0-36.0) RDW 16.7 % H % (12.1-15.1) Plt Count 374 10^3/cmm 10^3 /cmm (130-400) MPV 9.4 fL fL (7.4-10.4) Neut % (Auto) 76.4 % % Lymph % (Auto) 11.0 % % Yates % (Auto) 5.9 % % Eos % (Auto) 5.2 % % Baso % (Auto) 1.0 % % Neut # (Auto) 8.63 10^3/uL H 10 ^3/uL (1.8-7.7) Lymph # (Auto) 1.2 10^3/uL 10^3/ uL (0.8-4.8) Yates # (Auto) 0.7 10^3/uL 10^3/ uL (0.2-0.9) Eos # (Auto) 0.6 10^3/uL 10^3/ uL (0.0-0.8) Baso # (Auto) 0.1 10^3/uL 10^3/ uL (0.0-0.1) Nucleated RBC % (a uto) 0 % % Nucleated RBCs # 0.0 /100WBC /100W BC PT 13.90 SECONDS SEC ONDS (12.1-14.9) INR 1.04 (0.8-1.2) D-Dimer 9.17 ug/mIFEU H u g/mIFEU (0-0.59) Sodium 133 mmol/L L mmol /L (136-145) Potassium 4.3 mmol/L mmol/L (3.5-5.1) Chloride 100 mmol/L mmol/L (98-107) Carbon Dioxide 18 mmol/L L mmol/ L (22-29) Anion Gap 19.3 H (5-19) BUN 26 mg/dL H mg/dL (8-23) Creatinine 1.8 mg/dL H mg/dL (0.5-0.9) GFR Calculation Not Reportable Glucose 109 mg/dL mg/dL (65-115) Calculated Osmolal ity 281 mOsm/kg L mOs m/kg (285-295) Calcium 8.4 mg/dL L mg/dL (8.5-10.5) Total Bilirubin 0.5 mg/dL mg/dL (0.15-1.2) AST 30 U/L U/L (0-32) ALT 15 U/L U/L (0-33) Alkaline Phosphata se 125 IU/L H IU/L (35-105) Troponin T Baselin e Total Protein 7.1 g/dL g/dL (6.6-8.7) Albumin 3.8 g/dL g/dL (3.5-5.2) Globulin 3.3 g/dL g/dL (1.3-4.6) 07/02/21 23:02 WBC RBC Hgb Hct MCV MCH MCHC RDW Plt Count MPV Neut % (Auto) Lymph % (Auto) Yates % (Auto) Eos % (Auto) Baso % (Auto) Neut # (Auto) Lymph # (Auto) Yates # (Auto) Eos # (Auto) Baso # (Auto) Nucleated RBC % (a uto) Nucleated RBCs # PT INR D-Dimer Sodium Potassium Chloride Carbon Dioxide Anion Gap BUN Creatinine GFR Calculation Glucose Calculated Osmolal ity Calcium Total Bilirubin AST ALT Alkaline Phosphata se Troponin T Baselin e 93 ng/L H ng/L (0-10) Total Protein Albumin Globulin Discharge Plan Discharge Prescriptions: No Action atorvastatin 10 mg tablet See Rx Instructions .ROUTE .COMPLEX Qty: 60 RF: 0 hydralazine 50 mg tablet 50 mg PO TID@,,18 RF: 0 gabapentin 100 mg capsule 200 mg PO BID@,12 RF: 0 carvedilol [Coreg] 6.25 mg tablet 6.25 mg PO BID@,18 RF: 0 multivitamin Tablet 1 tab PO DAILY@0800 RF: 0 zinc sulfate 220 mg Tablet 220 mg PO DAILY@1800 RF: 0 Vitamin C 500 mg Tablet 500 mg PO DAILY@0800 RF: 0 ferrous sulfate 325 mg (65 mg iron) Tablet 325 mg PO DAILY@0800 RF: 0 Miralax 17 gram/dose Powder 17 g PO DAILY PRN (Reason: Constipation) RF: 0 Prostat Sugar Free 30 ml PO DAILY@0800 RF: 0 Tums Freshers 500 mg PO Q4H PRN (Reason: Nausea) RF: 0 Zofran 4 mg IV Q4H PRN (Reason: NAUSEA/VOMITING) RF: 0 citalopram 10 mg tablet 10 mg PO BEDTIME@1800 RF: 0 Protonix 40 mg tablet,delayed release (DR/EC) 40 mg PO DAILY@0500 RF: 0 potassium chloride 20 mEq tablet extended release 20 meq PO DAILY@0800 RF: 0 amlodipine 5 mg tablet 5 mg PO DAILY@0800 RF: 0 Zofran 4 mg Tablet 4 mg PO Q4H PRN (Reason: Nausea) RF: 0 furosemide 80 mg tablet 40 mg PO DAILY 30 Days Qty: 30 RF: 0 levofloxacin 500 mg tablet 750 mg PO DAILY 7 Days Qty: 7 RF: 0 Coding Level of Care Code ED Primary Grade Teacher for Chg Fwd Documented by User: Sj Monroe DO 07/03/21 01:00 HPI - SOB/Dyspnea General: Chief Complaint: Shortness of Breath/Dyspnea Stated Complaint: SOB Time Seen by Provider: 07/02/21 22:18 [facility] ED PFSH: Medical History (Updated 10/23/20 @ 00:01 by ) Acute hypokalemia Anemia Aortic stenosis on echo 07/2020: valve area 1.1 cm2, mean gradient 17.1 mmHg CKD (chronic kidney disease) stage 3, GFR 30-59 ml/min with GERARD in 07/2020 Critical lower limb ischemia Diabetes mellitus type II Diabetic ulcer of heel Diastolic CHF, chronic EF 55%, grade 2 Essential hypertension Fracture of lumbar spine (~09/2020) L2, from mechanical fall GI bleed (~07/2020) upper during hospitalization, while on prophylactic anticoagulation, required transfusion of 7 units of blood History of cardiovascular stress test (~08/2020) moderate area of persistent decreased uptake in the mid and apical anterior, mid inferolateral and apical segments with no significant reversibility h owever did have elevated TID ratio at 1.4 suggesting possible endocardial ischemia; managed medically due to CKD History of mechanical ventilation for respiratory failure from hypertensive emergency and flash pulmonary edema 07/2020; for CHF and pneumonia 08/2020 Hyperlipidemia Hyponatremia Nonhealing ulcer of heel follows with [facility] NSTEMI (non-ST elevated myocardial infarction) suspected type II process in 07/2020 and 08/2020, has not had cath due to CKD. On home oxygen therapy Peripheral arterial disease Surgical History (Updated 10/20/20 @ 00:45 by Rebekah Christian MD) History of esophagogastroduodenoscopy (EGD) (08/01/20) gastritis, duodenitis with some linear erosions in the stomach after NGT History of thoracentesis bilateral 08/2020, transudative right 09/2020 Surgical history unknown Hysterectomy documented previously, but patient still appears to have her uterus on her CAT scan Family History Other Cancer Rheumatoid arthritis Social History (Updated 10/20/20 @ 00:51 by Rebekah Christian MD) Smoking and tobacco status: never smoked Second hand smoke exposure: No Alcohol intake: never Lives independently: No Housing: Halfway Marital status: / Current occupational status: retired History of recent travel: No Current gender identity: Female Course Consultations: Consultation #1: em Vital Signs: Vital signs: Vital Signs Temperature 97.7 F 07/02/21 22:04 Pulse Rate 71 07/02/21 22:04 Respiratory Rate 18 07/02/21 22:04 Blood Pressure 149/65 07/02/21 22:04 Pulse Oximetry 96 07/02/21 22:04 MDM - SOB/Dyspnea MDM Narrative: Medical decision making narrative: This patient was originally seen by BRAXTON Sarah. I agree with his history, evaluation, and treatment. I seen the patient in the ER as well. This lady had a TAVR procedure a week ago. She presents with worsening shortness of breath. She had been taking Lasix prior to her hospitalization for the procedure. This was discontinued there. She has a history of chronic kidney disease. Her creatinine is 1.8. Her hemoglobin is 9, which is at her baseline. Chest x-ray showed bilateral pleural effusions with pulmonary vascular congestion. Her D-dimer, however, is 9. Because of this CTA was ordered, and shows no evidence for pulmonary emboli, but does show the moderate bilateral pleural effusions, which the patient states she has had to have drained in the past. No clinical history consistent with pneumonia. Patient is given Lasix and nitroglycerin paste topically in the ER. She will be admitted for exacerbation of congestive heart failure. First troponin was elevated, but she has had elevated troponins in the past. Second is pending. Hospitalist agrees to admission. Lab Data: Labs: Lab Results 07/02/21 07/02/21 07/02/21 23:02 23:02 23:02 WBC 11.3 10^3/uL H 10 ^3/uL (4.0-10.0) RBC 3.16 10^6/uL L 10 ^6/uL (4.1-5.3) Hgb 9.1 g/dL L g/dL (11.5-15.3) Hct 28.7 % L % (37.0-47.0) MCV 90.8 fl fl (81-99) MCH 28.8 pg pg (28.0-34.0) MCHC 31.7 g/dL g/dL (30.0-36.0) RDW 16.7 % H % (12.1-15.1) Plt Count 374 10^3/cmm 10^3 /cmm (130-400) MPV 9.4 fL fL (7.4-10.4) Neut % (Auto) 76.4 % % Lymph % (Auto) 11.0 % % Yates % (Auto) 5.9 % % Eos % (Auto) 5.2 % % Baso % (Auto) 1.0 % % Neut # (Auto) 8.63 10^3/uL H 10 ^3/uL (1.8-7.7) Lymph # (Auto) 1.2 10^3/uL 10^3/ uL (0.8-4.8) Yates # (Auto) 0.7 10^3/uL 10^3/ uL (0.2-0.9) Eos # (Auto) 0.6 10^3/uL 10^3/ uL (0.0-0.8) Baso # (Auto) 0.1 10^3/uL 10^3/ uL (0.0-0.1) Nucleated RBC % (a uto) 0 % % Nucleated RBCs # 0.0 /100WBC /100W BC PT 13.90 SECONDS SEC ONDS (12.1-14.9) INR 1.04 (0.8-1.2) D-Dimer 9.17 ug/mIFEU H u g/mIFEU (0-0.59) Sodium 133 mmol/L L mmol /L (136-145) Potassium 4.3 mmol/L mmol/L (3.5-5.1) Chloride 100 mmol/L mmol/L (98-107) Carbon Dioxide 18 mmol/L L mmol/ L (22-29) Anion Gap 19.3 H (5-19) BUN 26 mg/dL H mg/dL (8-23) Creatinine 1.8 mg/dL H mg/dL (0.5-0.9) GFR Calculation Not Reportable Glucose 109 mg/dL mg/dL (65-115) Calculated Osmolal ity 281 mOsm/kg L mOs m/kg (285-295) Calcium 8.4 mg/dL L mg/dL (8.5-10.5) Total Bilirubin 0.5 mg/dL mg/dL (0.15-1.2) AST 30 U/L U/L (0-32) ALT 15 U/L U/L (0-33) Alkaline Phosphata se 125 IU/L H IU/L (35-105) Troponin T Baselin e Total Protein 7.1 g/dL g/dL (6.6-8.7) Albumin 3.8 g/dL g/dL (3.5-5.2) Globulin 3.3 g/dL g/dL (1.3-4.6) 07/02/21 23:02 WBC RBC Hgb Hct MCV MCH MCHC RDW Plt Count MPV Neut % (Auto) Lymph % (Auto) Yates % (Auto) Eos % (Auto) Baso % (Auto) Neut # (Auto) Lymph # (Auto) Yates # (Auto) Eos # (Auto) Baso # (Auto) Nucleated RBC % (a uto) Nucleated RBCs # PT INR D-Dimer Sodium Potassium Chloride Carbon Dioxide Anion Gap BUN Creatinine GFR Calculation Glucose Calculated Osmolal ity Calcium Total Bilirubin AST ALT Alkaline Phosphata se Troponin T Baselin e 93 ng/L H ng/L (0-10) Total Protein Albumin Globulin Discharge Plan Discharge Prescriptions: No Action atorvastatin 10 mg tablet See Rx Instructions .ROUTE .COMPLEX Qty: 60 RF: 0 hydralazine 50 mg tablet 50 mg PO TID@08,12,18 RF: 0 gabapentin 100 mg capsule 200 mg PO BID@08,12 RF: 0 carvedilol [Coreg] 6.25 mg tablet 6.25 mg PO BID@08,18 RF: 0 multivitamin Tablet 1 tab PO DAILY@0800 RF: 0 zinc sulfate 220 mg Tablet 220 mg PO DAILY@1800 RF: 0 Vitamin C 500 mg Tablet 500 mg PO DAILY@0800 RF: 0 ferrous sulfate 325 mg (65 mg iron) Tablet 325 mg PO DAILY@0800 RF: 0 Miralax 17 gram/dose Powder 17 g PO DAILY PRN (Reason: Constipation) RF: 0 Prostat Sugar Free 30 ml PO DAILY@0800 RF: 0 Tums Freshers 500 mg PO Q4H PRN (Reason: Nausea) RF: 0 Zofran 4 mg IV Q4H PRN (Reason: NAUSEA/VOMITING) RF: 0 citalopram 10 mg tablet 10 mg PO BEDTIME@1800 RF: 0 Protonix 40 mg tablet,delayed release (DR/EC) 40 mg PO DAILY@0500 RF: 0 potassium chloride 20 mEq tablet extended release 20 meq PO DAILY@0800 RF: 0 amlodipine 5 mg tablet 5 mg PO DAILY@0800 RF: 0 Zofran 4 mg Tablet 4 mg PO Q4H PRN (Reason: Nausea) RF: 0 furosemide 80 mg tablet 40 mg PO DAILY 30 Days Qty: 30 RF: 0 levofloxacin 500 mg tablet 750 mg PO DAILY 7 Days Qty: 7 RF: 0 Coding Level of Care Code ED Primary Grade Teacher for Janice Long
[2021-07-02 23:11] LABS: Basophils # 0.1 10^3/uL (0.0-0.1); Eosinophils # 0.6 10^3/uL (0.0-0.8); Eosinophils % 5.2 %; Hematocrit 28.7 % (37.0-47.0); Hemoglobin 9.1 g/dL (11.5-15.3); Lymphocytes # 1.2 10^3/uL (0.8-4.8); Mean Corpuscular HGB Conc 31.7 g/dL (30.0-36.0); Mean Corpuscular Hemoglobin 28.8 pg (28.0-34.0); Mean Corpuscular Volume 90.8 fl (81-99); Mean Platelet Volume 9.4 fL (7.4-10.4); Monocytes # 0.7 10^3/uL (0.2-0.9); Monocytes % 5.9 %; Neutrophils # 8.63 10^3/uL (1.8-7.7); Neutrophils % 76.4 %; Nucleated Red Blood Cells % 0 %; Platelet Count 374 10^3/cmm (130-400); Red Blood Count 3.16 10^6/uL (4.1-5.3); Red Cell Distribution Width 16.7 % (12.1-15.1); White Blood Count 11.3 10^3/uL (4.0-10.0)
[2021-07-02 23:27] LABS: INR 1.04 (0.8-1.2)
[2021-07-02 23:32] LABS: Troponin(5th) Baseline 93 ng/L (0-10)
[2021-07-02 23:33] LABS: D Dimer 9.17 ug/mIFEU (0-0.59)
--- NOTE | 2021-07-02 23:34 | CTR_ITS ---
PROCEDURE INFORMATION: Exam: CTA Chest With Contrast Exam date and time: 07/02/2021 11:34 PM Age: 75 years old Clinical indication: Abnormal findings; Abnormal diagnostic tests; Elevated d-dimer; Shortness of breath; Prior surgery; Surgery date: <1 month; Surgery type: Aortic valve recent 06/14/21; Additional info: SOB, recent aortic valve replacement TECHNIQUE: Imaging protocol: Computed tomographic angiography of the chest with contrast. 3D rendering (Not supervised by radiologist): MIP and/or 3D reconstructed images were created by the technologist. Radiation optimization: All CT scans at this facility use at least one of these dose optimization techniques: automated exposure control; mA and/or kV adjustment per patient size (includes targeted exams where dose is matched to clinical indication); or iterative reconstruction. Contrast material: VISI 320; Contrast volume: 54 ml; Contrast route: INTRAVENOUS (IV); COMPARISON: CT chest [facility] [id number] 09/23/2020 4:10 AM RADIATION DOSE METRICS: Total DLP (mGy-cm): 509.65 FINDINGS: Pulmonary arteries: Normal. No pulmonary emboli. Aorta: Unremarkable. No aortic aneurysm. No aortic dissection. Great vessels off aortic arch: Calcifications are seen within the thoracic and abdominal aorta, great vessels, renal arteries bilaterally, branches of the celiac and superior mesenteric arteries. Lungs: See Pleural spaces finding. Pleural spaces: There are moderate bilateral pleural effusions. There are strandy opacities and consolidation seen superimposed over the pleural effusions likely representing atelectasis. Heart: Status post aortic valve replacement. Calcifications are seen in the coronary arteries. Lymph nodes: Small mediastinal lymph nodes are seen that are below CT criteria for lymphadenopathy. Bones/joints: Unremarkable. No acute fracture. Soft tissues: Unremarkable. CT/CT angio chest PE protcl [id number] IMPRESSION: 1. There is no evidence for pulmonary emboli. 2. Moderate bilateral pleural effusions 3. Strandy opacities and consolidations superimposes over the pleural effusions likely representing atelectasis. Bilateral basilar pneumonia cannot be entirely excluded. Radiation Dose CTDIVOL = (mGy): DLP = 509.65 (mGy-cm)
[2021-07-02 23:35] LABS: Alanine Aminotransferase 15 U/L (0-33); Albumin Level 3.8 g/dL (3.5-5.2); Alkaline Phosphatase 125 IU/L (35-105); Anion Gap 19.3 (5-19); Aspartate Amino Transferase 30 U/L (0-32); Blood Urea Nitrogen 26 mg/dL (8-23); Calcium 8.4 mg/dL (8.5-10.5); Carbon Dioxide 18 mmol/L (22-29); Chloride 100 mmol/L (98-107); Globulin 3.3 g/dL (1.3-4.6); Glucose 109 mg/dL (65-115); Osmolality Calculated 281 mOsm/kg (285-295); Potassium 4.3 mmol/L (3.5-5.1); Sodium 133 mmol/L (136-145); Total Bilirubin 0.5 mg/dL (0.15-1.2); Total Protein 7.1 g/dL (6.6-8.7)
[2021-07-03] VITALS (17 sets, daily range): BP systolic 130–159; BP diastolic 49–74; PULSE 60–72; RESP 14–23; TEMP 36.1–36.8; O2SAT 93–98; BMI 28.3
[2021-07-03] MEDS: iodixanol 320 mg/mL 100mL Btl IV (00:10)
--- NOTE | 2021-07-03 00:24 | ECG_ITS ---
[facility] Test Date: 2021-07-03 Pat Name: Elizabeth Lima Department: Room: Gender: Female Vault Custodian: : 1945 Requested By: Ja Francisco Order Number: [id number] Reading MD: JARED KEARNEY Measurements Intervals [place] Rate: 62 P: 53 KS: 175 QRS: -50 QRSD: 126 T: 91 QT: 449 QTc: 458 Interpretive Statements SINUS RHYTHM LEFT AXIS DEVIATION [QRS AXIS < -30] POSSIBLE ANTERIOR MYOCARDIAL INFARCTION , OF INDETERMINATE AGE [30 ms Q WAVE IN V3/V4, OR R < 0.2 mV IN V4] Compared to ECG 07/02/2021 22:24:43 Left-axis deviation now present Left anterior fascicular block no longer present Myocardial infarct finding still present Electronically Signed On 07-05-2021 13:01:50 MACHINE REPAIR PERSON by JARED KEARNEY [email or web address]
[2021-07-03] MEDS: nitroglycerin 1 gm/inch oint Pkt 1 INCH TOPICAL (01:38)
[2021-07-03] MEDS: FUROsemide 10 mg/mL SDV 10mL 60 MG IVP (01:39)
[2021-07-03 02:08] LABS: Troponin 5 2HR 80.73 ng/L (0-10)
--- NOTE | 2021-07-03 02:36 | P.HP_ITS ---
Providers/Chief Complaint Admitting Physician: Dinesh Swartz Primary Care Provider: Jorge A Grayson Chief Complaint: SOB History of Present Illness 75-year-old female with a past medical history significant for hypertension, hyperlipidemia, diabetes mellitus, chronic stage 3 kidney disease with baseline creatinine of 2.4, moderate aortic stenosis(azam 1.1cm2), peripheral vascular disease, GI bleed req multiple transfusion s/p EGD showing gastritis/duodenitis, chronic non-healing right calcaneal wound, chronic diastolic heart failure, bilateral pleural effusion s/p thoracentesis on 09/2020, chronic respiratory failure on 3L of o2 via NC who is presenting to Er with shortness of breath. Patient stated that she was recently seen at [facility] where she had a coronary angiogram and valve replacement however she was not clear on this as she had previously mentioned this was something that is pending. She did however note increasing edema since she was taken of her diuretics. Denied any recent fever, chills, nausea or vomiting. Also denied chest pain. Laboratory workup on arrival showed a WBC of 11.3, hemoglobin 9.1, hematocrit 28.7 and platelet count of 374. INR 1.04. D-dimer 9.17. Sodium 133, potassium 4.3, chloride 100, bicarb 18, BUN 26 and creatinine 1.8. Calcium of 8.4. AST of 30, ALT of 15 and alkaline phosphatase 125. Troponin T baseline of 93 with repeat of 80.7 at 2hr. Imaging studies included chest x-ray which showed bilateral moderate volume pleural effusions, right greater than left and atelectasis at the right lung base. CTA of chest which did not show any evidence of acute pulmonary embolism however noted to have moderate bilateral pleural effusions and strands opacities and consolidation superimposed over the pleural effusion representing atelectasis vs possible bilateral basilar pneumonia. In ER patient was given Lasix 60 mg IV x 1 and nitro-paste. Review of Systems General: Reports: 10 or more systems reviewed and unremarkable except in HPI and below Medications/Allergies Home Medications Medication Instructions Recorded Confirmed Last Taken Type gabapentin 200 mg PO BID@08,12 07/23/20 07/03/21 07/02/21 12:00 History hydralazine 50 mg PO TID@08,12,18 09/23/20 07/03/21 07/02/21 21:00 History ferrous sulfate 325 mg PO DAILY@0800 10/19/20 07/03/21 10/19/20 History multivitamin 1 tab PO DAILY@0800 10/19/20 07/03/21 07/02/21 08:00 History pantoprazole [Protonix] 40 mg PO DAILY@0500 10/19/20 07/03/21 07/02/21 05:00 History polyethylene glycol 3350 [Miralax] 17 g PO DAILY PRN 10/19/20 07/03/21 07/02/21 History amlodipine 10 mg PO DAILY 07/03/21 07/03/21 07/02/21 08:00 History atorvastatin 40 mg PO QPM 07/03/21 07/03/21 07/02/21 21:00 History Allergies Allergy/AdvReac Type Severity Reaction Status Date / Time diclofenac [From Voltaren] Allergy Intermediate Wound Verified 10/01/20 16:01 metformin Allergy ADR-Diarrhe Verified 10/01/20 16:01 a mold Allergy Unknown Verified 10/01/20 16:01 FLU SHOT Allergy Unknown Uncoded 09/29/20 14:05 PFSH Acute PFSH: Medical History (Updated 07/03/21 @ 05:58 by Dinesh Swartz MD) Acute hypokalemia Anemia Aortic stenosis on echo 07/2020: valve area 1.1 cm2, mean gradient 17.1 mmHg CKD (chronic kidney disease) stage 3, GFR 30-59 ml/min with GERARD in 07/2020 Critical lower limb ischemia Diabetes mellitus type II Diabetic ulcer of heel Diastolic CHF, chronic EF 55%, grade 2 Essential hypertension Fracture of lumbar spine (~09/2020) L2, from mechanical fall GI bleed (~07/2020) upper during hospitalization, while on prophylactic anticoagulation, required transfusion of 7 units of blood History of cardiovascular stress test (~08/2020) moderate area of persistent decreased uptake in the mid and apical anterior, mid inferolateral and apical segments with no significant reversibility however did have elevated TID ratio at 1.4 suggesting possible endocardial ischemia; managed medically due to CKD History of mechanical ventilation for respiratory failure from hypertensive emergency and flash pulmonary edema 07/2020; for CHF and pneumonia 08/2020 Hyperlipidemia Hyponatremia Nonhealing ulcer of heel follows with [facility] NSTEMI (non-ST elevated myocardial infarction) suspected type II process in 07/2020 and 08/2020, has not had cath due to CKD. On home oxygen therapy Peripheral arterial disease Surgical History (Updated 10/20/20 @ 00:45 by Rebekah Christian MD) History of esophagogastroduodenoscopy (EGD) (08/01/20) gastritis, duodenitis with some linear erosions in the stomach after NGT History of thoracentesis bilateral 08/2020, transudative right 09/2020 Surgical history unknown Hysterectomy documented previously, but patient still appears to have her uterus on her CAT scan Family History Other Cancer Rheumatoid arthritis Social History (Updated 10/20/20 @ 00:51 by Rebekah Christian MD) Smoking and tobacco status: never smoked Second hand smoke exposure: No Alcohol intake: never Lives independently: No Housing: Retirement Marital status: / Current occupational status: retired History of recent travel: No Current gender identity: Female Female Reproductive History: Para: 2 Vitals/I&O/Wt Last Vital Signs Temp 97.7 F 07/03/21 00:12 Pulse 65 07/03/21 01:59 Resp 16 07/03/21 01:59 BP 157/61 07/03/21 01:59 Pulse Ox 97 07/03/21 01:59 Weight last 48 hrs Weight 110 kg Physical Exam Narrative: EXAM NARRATIVE: General : Alert, awake oriented x 3, NAD HEENT: Grossly Unremarkable CVS: RRR Chest: Non-labored respiration on 2L of o2 via NC Abd: Soft, NT,ND Ext; Mild b/l edema Urinary Catheter Management^: Mcfarland: Cath Placed During This Visit: yes Urinary Catheter Date of Insertion: 07/03/21 Urinary Catheter Time of Insertion: 01:15 Data : 07/02/21 23:02 07/02/21 23:02 A&P Assessment and plan (1) Acute on chronic diastolic (congestive) heart failure: Status: Acute Additional A&P Information Acute on chronic diastolic heart failure exacerbation / Moderate b/L pleural effusion Recently taken off diuretics - unclear as to why S/p Lasix 60 mg IV x 1 in ER Will continue 40 mg IV BID Monitor BMP / daily weight / strict I&O Obtain records from [facility] - recent echo report Elevated D-dimer CTA - negative for PE Chronic stage 3 kidney disease Baseline around 2.4 Currently 1.8 Monitor daily bmp given diuretics Renal dosing of meds Elevated troponin Trend not consistent with ACS Chest pain free DVT ppx SCDs only ( hx of Gi bleed) Additional Medical Problems Coronary artery disease - verify if recent Cath Moderate Aortic stenosis Hypertension Hyperlipidemia Obstructive sleep apnea Diabetes mellitus Hx of GI bleed GERD Verify home meds in AM and resume Obtain records from [facility] ( recent cardiac work up ) Attestations Medical Necessity Statement*: Anticipate > 2 midnight stay in hospital for eval and treatment. Time Spent in Patient Care: Greater than 35 minutes (>than 50% of time spent in counselling and/or direct pt care on unit) . Coding Level of Care Code Acute Marketing Research Analyst for Janice Long Diagnoses Acute on chronic diastolic (congestive) heart failure I50.33
[2021-07-03] MEDS: HYDROcodone-acetaminophen 5-325 mg Tablet 1 TAB PO (03:21)
--- NOTE | 2021-07-03 04:24 | ECG_ITS ---
[facility] Test Date: 2021-07-03 Pat Name: Elizabeth Lima Department: Room: 102 Gender: Female Retail Product Advisor: : 1945 Requested By: Ja Francisco Order Number: [id number] Reading MD: JARED KEARNEY Measurements Intervals [place] Rate: 63 P: 32 SD: 182 QRS: -53 QRSD: 122 T: 85 QT: 438 QTc: 449 Interpretive Statements SINUS RHYTHM LEFT ANTERIOR FASCICULAR BLOCK [QRS AXIS <= -45, QR IN I, RS IN II] POSSIBLE ANTERIOR MYOCARDIAL INFARCTION , OF INDETERMINATE AGE [30 ms Q WAVE IN V3/V4, OR R < 0.2 mV IN V4] Compared to ECG 07/03/2021 00:44:17 Left anterior fascicular block now present Left-axis deviation no longer present Myocardial infarct finding still present Electronically Signed On 07-05-2021 13:01:46 BREAD ICER by JARED KEARNEY [id number]
--- NOTE | 2021-07-03 05:25 | PC.NURSE ---
Admit Note Patient admitted to 102 on CSU from ED via stretcher. Transferred patient to bed x2 assist. Patient tolerated well. Observed redness with dry skin to sacrum. Applied Aloe-vesta ointment to sacrum. Patient also has healing ulcer to right heal that remains open to air. Covering service notified. Patient presents with increased shortness of breath since her aortic valve replaced ~1week ago at [facility] in [place], [place]. Patient has +1 pitting to bilateral lower extremities. Patient reports improvement of swelling to bilateral hands to elbow. Patient also stated, I feel so much better. I feel like I can breathe easier. Patient has engel catheter in place on arrival to floor. Orders reviewed & will continue to monitor. Patient and/or distribution sales representative oriented to environment, equipment, and informed of the following as found in the admission booklet: patient rights & responsibilities, visitor policy, hand and respiratory hygiene practice. Other education includes: Furosemide and frequent position changes to prevent further breakdown to sacral area. Patient verbalized complete understanding.
[2021-07-03 06:14] LABS: Basophils # 0.1 10^3/uL (0.0-0.1); Eosinophils # 0.7 10^3/uL (0.0-0.8); Eosinophils % 5.9 %; Hematocrit 23.6 % (37.0-47.0); Hemoglobin 7.5 g/dL (11.5-15.3); Lymphocytes # 1.8 10^3/uL (0.8-4.8); Lymphocytes % 15.5 %; Mean Corpuscular HGB Conc 31.8 g/dL (30.0-36.0); Mean Corpuscular Hemoglobin 29.6 pg (28.0-34.0); Mean Corpuscular Volume 93.3 fl (81-99); Mean Platelet Volume 9.6 fL (7.4-10.4); Monocytes # 0.8 10^3/uL (0.2-0.9); Monocytes % 7.3 %; Neutrophils % 69.8 %; Nucleated Red Blood Cells % 0 %; Platelet Count 313 10^3/cmm (130-400); Red Blood Count 2.53 10^6/uL (4.1-5.3); Red Cell Distribution Width 16.8 % (12.1-15.1); White Blood Count 11.4 10^3/uL (4.0-10.0)
--- NOTE | 2021-07-03 06:17 | PC.NURSE ---
Shift Note Frequent safety and comfort rounds continue. Orders and/or nursing care completed as indicated. Patient monitored for response to intervention and treatment(s). Education provided includes hydrocodone and furosemide. Patient verbalized complete understanding. Patient lying to right side. Encourage patient to reposition frequently to prevent breakdown. Patient resting with eyes closed presently with even, non-labored respirations noted. No s/s of pain or other discomforts observed. Will continue to monitor.
[2021-07-03 06:23] LABS: Alanine Aminotransferase 13 U/L (0-33); Alkaline Phosphatase 100 IU/L (35-105); Anion Gap 17.2 (5-19); Aspartate Amino Transferase 20 U/L (0-32); Chloride 103 mmol/L (98-107); Globulin 2.3 g/dL (1.3-4.6); Potassium 4.2 mmol/L (3.5-5.1); Total Bilirubin 0.4 mg/dL (0.15-1.2)
[2021-07-03 06:27] LABS: Troponin 5 6HR 85.29 ng/L (0-10)
[2021-07-03 06:30] LABS: Troponin 5 6HR Delta -7.71 ng/L (0-12)
[2021-07-03 06:43] LABS: Glucose Point of Care 112 mg/dL (70-110)
[2021-07-03 07:50] LABS: Albumin Level 3.2 g/dL (3.5-5.2); Blood Urea Nitrogen 23 mg/dL (8-23); Carbon Dioxide 19 mmol/L (22-29); Glucose 95 mg/dL (65-115); Osmolality Calculated 285 mOsm/kg (285-295); Sodium 136 mmol/L (136-145); Total Protein 5.7 g/dL (6.6-8.7)
[2021-07-03] MEDS: amlodipine 10 mg Tablet PO (08:14)
[2021-07-03] MEDS: FUROsemide 10 mg/mL SDV 4mL 40 MG IVP (08:14)
[2021-07-03] MEDS: pantoprazole DR 40 mg Tablet PO (08:14)
[2021-07-03] MEDS: hyDRALAzine 50 mg Tablet PO ×3 (08:14→17:55)
[2021-07-03] MEDS: gabapentin 100 mg Capsule 200 MG PO ×2 (08:14→13:09)
[2021-07-03] MEDS: ferrous sulfate EC 325 mg Tablet PO (08:14)
--- NOTE | 2021-07-03 10:45 | PC.NURSE ---
Spoke with Dr Schwarz about patient Hbg Instructions received to Type and screen transfuse 1 unit RBC now start protonix IVP 40mg Daily obtain stool for occult blood
--- NOTE | 2021-07-03 12:08 | P.PN_ITS ---
Subjective Subjective: Interval history: Seen this AM. She states she would like to go to rehab in [place] because her friends are there. She was recently admitted at [facility] in [facility]. SHe was recommeded rehab but because she states she did approve of the authorized rehab facility, she went home instead. She would like to do rehab in [place]. As for edema, she states it is improved. She was taken off her water pill by the doctor and therefore has developed edema now. She does feel better after having lasix. Hb dropped to 7.5 today. No report of bleeding so far. Have ordered a unit due to cardiac hx status. PT will be working with her shortly. Vitals/I&O/Wt Last Vital Signs Temp 97.7 F 07/03/21 00:12 Pulse 60 07/03/21 08:00 Resp 14 07/03/21 08:00 BP 135/56 07/03/21 08:00 Pulse Ox 98 07/03/21 08:00 07/02/21 07/03/21 07/03/21 22:59 06:59 14:59 Intake Total 120 / 120 Output Total 300 / 300 Balance -300 / -300 120 / 120 Weight last 48 hrs Weight 61.371 kg Weight 61.371 kg Weight 61.371 kg Weight 110 kg Physical Exam Narrative: EXAM NARRATIVE: General : Alert, awake oriented x 3, NAD HEENT: Grossly Unremarkable, wearing NC CVS: RRR, no gross murmers Chest: Non-labored respiration on 2L of o2 via NC, clear to auscultation b/l with mild crackles at bases Abd: Soft, NT,ND Ext; Trace b/l LE edema, upper extremity edema also better and trace at this point. Urinary Catheter Management^: Mcfarland: Cath Placed During This Visit: yes Reason for Continuing Indwelling Catheter: Accurate Measurement of Urinary Output in Critically Ill Patients Urinary Catheter Date of Insertion: 07/03/21 Urinary Catheter Time of Insertion: 01:15 Data : 07/03/21 05:38 07/03/21 05:38 A&P Assessment and plan (1) Acute on chronic diastolic (congestive) heart failure: Status: Acute (2) Congestive heart failure: Status: Acute Qualifiers: Heart failure chronicity: acute Heart failure type: unspecified Qualified Code(s): I50.9 - Heart failure, unspecified (3) Anemia: Status: Chronic (4) On home oxygen therapy: Status: Acute (5) Compression fracture of L2: Status: Acute Additional A&P Information Acute on chronic diastolic heart failure exacerbation / Moderate b/L pleural effusion Recently taken off diuretics - unclear as to why S/p Lasix 60 mg IV x 1 in ER Will continue 40 mg IV daily. Will descalate from BID. Monitor BMP / daily weight / strict I&O Obtain records from [facility] - recent echo report. Nursing staff will obtain r ecords and pharmacy updated list Elevated D-dimer CTA - negative for PE Acute on chronic anemia Hb 7.5 today will check fobt will transfuse 1 unit rbc due to cardiac hx. will re-check post transfusion cbc. Will check iron studies Chronic stage 3 kidney disease Baseline around 2.4 1.8 at admission. Now 1.7. Monitor daily bmp given diuretics Renal dosing of meds Elevated troponin Trend not consistent with ACS Chest pain free DVT ppx SCDs only ( hx of Gi bleed) Additional Medical Problems Coronary artery disease - verify if recent Cath Moderate Aortic stenosis Hypertension Hyperlipidemia Obstructive sleep apnea Diabetes mellitus Hx of GI bleed GERD Will obtain records and decide on further plan PT consult placed today. Attestations Medical Necessity Statement*: > 24 hour stay Coding Level of Care Code Acute Corncob Pipes Assembler for Janice Long Diagnoses Acute on chronic diastolic (congestive) heart failure I50.33 Congestive heart failure I50.9 Heart failure chronicity: acute Heart failure type: unspecified Anemia D64.9 On home oxygen therapy Z99.81 Compression fracture of L2 S32.020A
[2021-07-03 12:13] LABS: Glucose Point of Care 121 mg/dL (70-110)
[2021-07-03] MEDS: lactulose oral liq 20 gm/30 mL UDC PO (13:09)
[2021-07-03] MEDS: sodium chloride 0.9% (100 ml) 100 ML (15:06)
[2021-07-03 17:31] LABS: Glucose Point of Care 121 mg/dL (70-110)
[2021-07-03 17:41] LABS: Glucose Point of Care 123 mg/dL (70-110)
[2021-07-03] MEDS: atorvastatin 40 mg Tablet PO (17:56)
[2021-07-03] MEDS: pantoprazole 40 mg SDV IVP (20:49)
[2021-07-03 22:03] LABS: Glucose Point of Care 133 mg/dL (70-110)
[2021-07-04] VITALS (7 sets, daily range): BP systolic 121–156; BP diastolic 50–73; PULSE 67–87; RESP 16–17; TEMP 36.7–36.9; O2SAT 93–98
[2021-07-04] MEDS: lactulose oral liq 20 gm/30 mL UDC PO ×2 (02:00→13:06)
[2021-07-04 06:15] LABS: Glucose Point of Care 133 mg/dL (70-110)
[2021-07-04 06:48] LABS: Basophils # 0.1 10^3/uL (0.0-0.1); Basophils % 0.8 %; Eosinophils # 0.8 10^3/uL (0.0-0.8); Eosinophils % 6.4 %; Hematocrit 30.4 % (37.0-47.0); Hemoglobin 9.8 g/dL (11.5-15.3); Lymphocytes # 1.3 10^3/uL (0.8-4.8); Lymphocytes % 10.3 %; Mean Corpuscular HGB Conc 32.2 g/dL (30.0-36.0); Mean Corpuscular Hemoglobin 28.7 pg (28.0-34.0); Mean Corpuscular Volume 88.9 fl (81-99); Mean Platelet Volume 11.3 fL (7.4-10.4); Monocytes # 0.7 10^3/uL (0.2-0.9); Monocytes % 5.7 %; Neutrophils # 9.47 10^3/uL (1.8-7.7); Neutrophils % 76.3 %; Nucleated Red Blood Cells % 0 %; Platelet Count 227 10^3/cmm (130-400); Red Blood Count 3.42 10^6/uL (4.1-5.3); Red Cell Distribution Width 16.9 % (12.1-15.1); White Blood Count 12.4 10^3/uL (4.0-10.0)
[2021-07-04] MEDS: FUROsemide 10 mg/mL SDV 4mL 40 MG IVP (08:42)
[2021-07-04] MEDS: ferrous sulfate EC 325 mg Tablet PO (08:42)
[2021-07-04] MEDS: gabapentin 100 mg Capsule 200 MG PO ×2 (08:42→11:33)
[2021-07-04] MEDS: amlodipine 10 mg Tablet PO (08:42)
[2021-07-04] MEDS: hyDRALAzine 50 mg Tablet PO ×3 (08:42→17:25)
[2021-07-04 10:00] LABS: Alanine Aminotransferase 15 U/L (0-33); Albumin Level 3.6 g/dL (3.5-5.2); Alkaline Phosphatase 127 IU/L (35-105); Blood Urea Nitrogen 24 mg/dL (8-23); Calcium 8.5 mg/dL (8.5-10.5); Carbon Dioxide 21 mmol/L (22-29); Chloride 101 mmol/L (98-107); Glucose 110 mg/dL (65-115); Magnesium 1.9 mg/dL (1.7-2.3); Osmolality Calculated 287 mOsm/kg (285-295); Sodium 136 mmol/L (136-145); Total Bilirubin 0.8 mg/dL (0.15-1.2); Total Protein 6.6 g/dL (6.6-8.7)
[2021-07-04 10:14] LABS: Anion Gap 18.2 (5-19); Aspartate Amino Transferase 27 U/L (0-32); Potassium 4.2 mmol/L (3.5-5.1)
[2021-07-04 11:50] LABS: Glucose Point of Care 137 mg/dL (70-110)
--- NOTE | 2021-07-04 14:52 | P.PN_ITS ---
Subjective Subjective: Interval history: Seen this morning. She states she feels a lot better compared to before swelling in her hands is also improved. She is requesting for an oxygen concentrator when she goes home and a new walker. She would like to go to rehab in there. Physical therapy to see her. She says the room is a little cold and she would like to wear socks and get an extra blanket. Vitals/I&O/Wt Last Vital Signs Temp 98.3 F 07/04/21 12:45 Pulse 72 07/04/21 14:00 Resp 16 07/04/21 12:45 BP 121/62 07/04/21 12:45 Pulse Ox 94 07/04/21 12:45 07/03/21 07/04/21 07/04/21 22:59 06:59 14:59 Intake Total 240 / 360 240 / 240 Output Total 650 / 650 300 / 950 Balance -410 / -290 -300 / -590 240 / 240 Weight last 48 hrs Weight 56.88 kg Weight 61.371 kg Weight 61.371 kg Weight 61.371 kg Weight 110 kg Physical Exam Narrative: EXAM NARRATIVE: General : Alert, awake oriented x 3, NAD HEENT: Grossly Unremarkable, wearing NC CVS: RRR, no gross murmers Chest: Non-labored respiration on 2L of o2 via NC, clear to auscultation, no crackles no wheezes no rhonchi at bases. Abd: Soft, NT,ND Ext; Trace b/l LE edema, upper extremity edema also better and trace at this point. Edema improved but mild edema still present. Urinary Catheter Management^: Mcfarland: Cath Placed During This Visit: yes Reason for Continuing Indwelling Catheter: Other Urinary Catheter Date of Insertion: 07/03/21 Urinary Catheter Time of Insertion: 01:15 Data : 07/04/21 05:46 07/04/21 09:11 A&P Assessment and plan (1) Acute on chronic diastolic (congestive) heart failure: Status: Acute (2) Congestive heart failure: Status: Acute Qualifiers: Heart failure chronicity: acute Heart failure type: unspecified Qualified Code(s): I50.9 - Heart failure, unspecified (3) Anemia: Status: Chronic (4) On home oxygen therapy: Status: Acute (5) Compression fracture of L2: Status: Acute Additional A&P Information Acute on chronic diastolic heart failure exacerbation / Moderate b/L pleural effusion Recently taken off diuretics - unclear as to why S/p Lasix 60 mg IV x 1 in ER Will continue 40 mg IV daily. Will descalate from BID. Monitor BMP / daily weight / strict I&O Obtain records from [facility] - recent echo report. Nursing staff will obtain records and pharmacy updated list Elevated D-dimer CTA - negative for PE Acute on chronic anemia Hb 7.5 today FOBT pending She did get 1 unit packed RBC. Posttransfusion CBC 9.5. Iron studies pending. Chronic stage 3 kidney disease Baseline around 2.4 1.8 at admission. Creatinine 1.8 today. Monitor daily bmp given diuretics Renal dosing of meds Elevated troponin Trend not consistent with ACS Chest pain free DVT ppx SCDs only ( hx of Gi bleed) Additional Medical Problems Coronary artery disease - verify if recent Cath Moderate Aortic stenosis Hypertension Hyperlipidemia Obstructive sleep apnea Diabetes mellitus Hx of GI bleed GERD Will obtain records and decide on further plan PT consult placed today. Attestations Medical Necessity Statement*: Possible discharge on oral diuretics in a.m. We will need to obtain records from [facility].. Coding Level of Care Code Acute Outpatient Program Coordinator for Janice Long Diagnoses Acute on chronic diastolic (congestive) heart failure I50.33 Congestive heart failure I50.9 Heart failure chronicity: acute Heart failure type: unspecified Anemia D64.9 On home oxygen therapy Z99.81 Compression fracture of L2 S32.020A
[2021-07-04 16:22] LABS: Blood Urine 2+ (Negative); Glucose Urine UA Norm (Normal); Ketones Urine Negative (Negative); Nitrate Urine Positive (Negative); Protein Urine 1+ (Negative); Urine Appearance Hazy (CLEAR); Urine Color Yellow (Yellow); pH Urine 5 (5-7)
[2021-07-04 16:23] LABS: Add Urine Microscopic? YES; Bilirubin Urine Neg (Negative); Leukocyte Esterase Urine 1+ (Negative); Urobilinogen Urine Norm (Negative)
[2021-07-04 16:25] LABS: Bacteria Urine 2+ /hpf; Mucus Urine 2+ /hpf; Squamous Epithelial Cell Urine 15-25 /hpf (0-5)
[2021-07-04 16:26] LABS: Add Urine Culture? No; WBC Urine 40-55 /hpf (0-5)
[2021-07-04 17:00] LABS: Glucose Point of Care 141 mg/dL (70-110)
[2021-07-04] MEDS: insulin lispro 100 unit/1 mL SUBCUT (17:25)
[2021-07-04] MEDS: atorvastatin 40 mg Tablet PO (17:25)
[2021-07-04 21:06] LABS: Glucose Point of Care 80 mg/dL (70-110)
[2021-07-04] MEDS: pantoprazole 40 mg SDV IVP (21:38)
[2021-07-05] VITALS: BP 138/52; PULSE 81; RESP 16; TEMP 36.7; O2SAT 96
[2021-07-05 04:00] VITALS: BP 142/51; PULSE 74; RESP 17; TEMP 36.7; O2SAT 95
[2021-07-05 06:44] LABS: Glucose Point of Care 109 mg/dL (70-110)
[2021-07-05 08:00] VITALS: BP 159/56; PULSE 74; RESP 16; TEMP 36.8; O2SAT 95
[2021-07-05] MEDS: amlodipine 10 mg Tablet PO (08:27)
[2021-07-05] MEDS: ferrous sulfate EC 325 mg Tablet PO (08:27)
[2021-07-05] MEDS: FUROsemide 10 mg/mL SDV 4mL 40 MG IVP (08:27)
[2021-07-05] MEDS: hyDRALAzine 50 mg Tablet PO ×2 (08:27→12:29)
[2021-07-05] MEDS: gabapentin 100 mg Capsule 200 MG PO ×2 (08:27→12:29)
[2021-07-05 12:00] VITALS: BP 146/54; PULSE 79; RESP 16; TEMP 36.9; O2SAT 95
--- NOTE | 2021-07-05 12:07 | P.DS_ITS ---
Discharge Providers Date of Admission: 07/03/21 01:30 Date of Discharge: July 05, 2021 Attending Provider at Admission: Dinesh Swartz Attending Provider at Discharge: Jin Arreaga MD Primary Care Provider: Jorge A Grayson Diagnoses at Discharge Discharge Diagnosis (1) Acute on chronic diastolic (congestive) heart failure: Status: Resolved (2) Congestive heart failure: Status: Resolved Qualifiers: Heart failure chronicity: acute Heart failure type: unspecified Qualified Code(s): I50.9 - Heart failure, unspecified (3) Anemia: (4) On home oxygen therapy: (5) Compression fracture of L2: Permanent problem details: from mechanical fall Reason for Visit Reason for Visit: SOB Hospital Course Hospital Course History of Present Illness by Dr Swartz 75-year-old female with a past medical history significant for hypertension, hyperlipidemia, diabetes mellitus, chronic stage 3 kidney disease with baseline creatinine of 2.4, moderate aortic stenosis(azam 1.1cm2), peripheral vascular disease, GI bleed req multiple transfusion s/p EGD showing gastritis/duodenitis, chronic non-healing right calcaneal wound, chronic diastolic heart failure, bilateral pleural effusion s/p thoracentesis on 09/2020, chronic respiratory failure on 3L of o2 via NC who is presenting to Er with shortness of breath. Patient stated that she was recently seen at [facility] where she had a coronary angiogram and valve replacement however she was not clear on this as she had previously mentioned this was something that is pending. She did however note increasing edema since she was taken of her diuretics. Denied any recent fever, chills, nausea or vomiting. Also denied chest pain. Laboratory workup on arrival showed a WBC of 11.3, hemoglobin 9.1, hematocrit 28.7 and platelet count of 374. INR 1.04. D-dimer 9.17. Sodium 133, potassium 4.3, chloride 100, bicarb 18, BUN 26 and creatinine 1.8. Calcium of 8.4. AST of 30, ALT of 15 and alkaline phosphatase 125. Troponin T baseline of 93 with repeat of 80.7 at 2hr. Imaging studies included chest x-ray which showed bilateral moderate volume pleural effusions, right greater than left and atelectasis at the right lung base. CTA of chest which did not show any evidence of acute pulmonary embolism however noted to have moderate bilateral pleural effusions and strands opacities and consolidation superimposed over the pleural effusion representing atelectasis vs possible bilateral basilar pneumonia. In ER patient was given Lasix 60 mg IV x 1 and nitro-past Hosp Course: Patient was diagnosed with CHF exacerbation, she was diuresed aggressively during hospitalization, recently her diuretics were held for unclear reasons. CTA ruled out pulmonary embolism. She was given 1 unit PRBC to keep her hemoglobin above 8 considering her cardiac history. No active bleeding noted during hospitalization. Her records were obtained from the outside facility. She does have elevated creatinine related to chronic kidney disease, her anemia is most likely consistent with anemia of chronic disease as well. She remained afebrile, no worsening of leukocytosis she was not showing signs of pneumonia. At the time of discharge she will be getting Lasix low-dose 20 mg to be taken on a daily basis. Patient will be discharged to long-term/rehab. She will go to [facility]. Physical Exam Narrative: EXAM NARRATIVE: elderly female Fatigue and lethargic Mild signs of fluid overload EOMI, PERRLA Abdomen soft visceral obesity EOMI, PERRLA nonfocal neuro exam Saturating well on room air Awake and alert Pleasant and cooperative during my evaluation Urinary Catheter Management^: Mcfarland: Cath Placed During This Visit: yes Reason for Continuing Indwelling Catheter: Other Urinary Catheter Date of Insertion: 07/03/21 Urinary Catheter Time of Insertion: 01:15 Discharge Data Data Completed and Pending: Completed Studies During Hospitalization Category Date Time Status CT angio chest PE protcl [id number] Stat Cat Scan 07/02/21 23:34 Completed XR chest 1V aung ble [id number] Stat Exams 07/02/21 22:23 Completed Pending at discharge Category Date Time Status Occult Blood Stoo l [Immunochemical Fecal OCB] Routine Lab 07/03/21 09:36 Uncollected Labs from last 24 hours 07/05/21 07/04/21 07/04/21 06:42 20:39 16:49 POC Glucose 109 80 141 H Urine Color Urine Appearance Urine pH Ur Specific Gravit y Urine Protein Urine Glucose (UA) Urine Ketones Urine Blood Urine Nitrate Urine Bilirubin Urine Urobilinogen Ur Leukocyte Yaritza ase Urine RBC Urine WBC Ur Squamous Epith Cells Amorphous Sediment Urine Bacteria Urine Mucus 07/04/21 15:00 POC Glucose Urine Color Yellow Urine Appearance Hazy A Urine pH 5 Ur Specific Gravit y 1.010 Urine Protein 1+ H Urine Glucose (UA) Norm Urine Ketones Negative Urine Blood 2+ H Urine Nitrate Positive H Urine Bilirubin Neg Urine Urobilinogen Norm Ur Leukocyte Yaritza ase 1+ H Urine RBC 5-10 H Urine WBC 40-55 H Ur Squamous Epith Cells 15-25 H Amorphous Sediment Not Reportable Urine Bacteria 2+ H Urine Mucus 2+ Vitals: Last Vital Signs Temp 98.3 F 07/05/21 08:00 Pulse 74 07/05/21 08:00 Resp 16 07/05/21 08:00 BP 159/56 07/05/21 08:00 Pulse Ox 95 07/05/21 08:00 Discharge Plan Discharge Patient Disposition: Xfer SNF Condition: Stable Prescriptions: New Lasix 20 mg tablet 20 mg PO DAILY Qty: 30 RF: 2 potassium chloride 10 mEq capsule, extended release 10 meq PO DAILY Qty: 30 RF: 0 Continued hydralazine 50 mg tablet 50 mg PO TID@08,12,18 RF: 0 atorvastatin 40 mg Tablet 40 mg PO QPM RF: 0 amlodipine 10 mg Tablet 10 mg PO DAILY RF: 0 gabapentin 100 mg capsule 200 mg PO BID@08,12 RF: 0 multivitamin Tablet 1 tab PO DAILY@0800 RF: 0 ferrous sulfate 325 mg (65 mg iron) Tablet 325 mg PO DAILY@0800 RF: 0 polyethylene glycol 3350 [Miralax] 17 gram/dose Powder 17 g PO DAILY PRN (Reason: Constipation) RF: 0 pantoprazole [Protonix] 40 mg tablet,delayed release (DR/EC) 40 mg PO DAILY@0500 RF: 0 Discharge Orders: Discharge Order (Routine); Ordered 07/05/21 Ordered By: Jin Arreaga Referrals: Jorge A Grayson MD [Primary Care Provider] - 07/12/21 10:30 am () Discharge Diet: Advance as tolerated and Cardiac Discharge Activity: Increase activity as tolerated Patient Instructions: Furosemide (By mouth) (Lasix), Potassium Chloride (By mouth) (K-Dur, K-Luanne, K-Tab, Drew Mur), CHF Stoplight Discharge Attestations Time Spent in Discharge Care*: less than 30 min Status at Discharge: Cognitive status at discharge: cognitively intact , Behavioral status at discharge: cooperative , Quality Metrics Clinical Quality Measures During this hospital stay, did patient experience: None Coding Level of Care Code Acute Chg FW DC note Diagnoses Acute on chronic diastolic (congestive) heart failure I50.33 Congestive heart failure I50.9 Heart failure chronicity: acute Heart failure type: unspecified Anemia D64.9 On home oxygen therapy Z99.81 Compression fracture of L2 S32.020A
[2021-07-05 12:18] LABS: Glucose Point of Care 106 mg/dL (70-110)
[2021-07-05] MEDS: lactulose oral liq 20 gm/30 mL UDC PO (12:29)
--- NOTE | 2021-07-05 14:32 | PC.NURSE ---
Indwelling catheter pulled from bladder at this time. Patient tolerated well. IV removed from Left AC. No issues noted. [facility] transportation called the floor to let this nurse they were outside ready to pick the patient up for transportation to facility.
[2021-07-05 15:11] VITALS: BP 146/54; PULSE 79; RESP 16; TEMP 36.9; O2SAT 95
[2021-07-05 16:17] LABS: SARS Covid-2 Antigen Negative (Negative)
== END 2021-07-05 15:12 | disposition skilled nursing facility (03) | DRG 291 ==
LOC: ER 07-03 01:01 → MEDSURG 07-03 01:34 → CSU 07-03 01:42 → MEDSURG 07-03 14:12
PROVIDERS: Internal Medicine; Admitting Provider Hospitalist; Emergency Provider Nurse Practitioner Family; PCP Family Medicine; Visit Provider Internal Medicine
DX: I13.0 Hypertensive heart and chronic kidney disease with heart failure and stage 1 through stage 4 chronic kidney disease, or unspecified chronic kidney disease (principal); I50.33 Acute on chronic diastolic (congestive) heart failure; J96.10 Chronic respiratory failure, unspecified whether with hypoxia or hypercapnia; N18.30 Chronic kidney disease, stage 3 unspecified; D63.1 Anemia in chronic kidney disease; Z95.2 Presence of prosthetic heart valve; E78.5 Hyperlipidemia, unspecified; L89.610 Pressure ulcer of right heel, unstageable; I25.2 Old myocardial infarction; Z99.81 Dependence on supplemental oxygen; I25.10 Atherosclerotic heart disease of native coronary artery without angina pectoris; G47.33 Obstructive sleep apnea (adult) (pediatric); E11.51 Type 2 diabetes mellitus with diabetic peripheral angiopathy without gangrene
CPT/HCPCS: 36415; 36416; 36430; 51702; 71045; 71275; 80053; 81001; 82962; 83735; 84145; 84484; 85025; 85378; 85610; 86850; 86900; 86920; 87426; 93005; 94664; 96372; 96374; 97116; 97161; 99285; C9113; J1815; J1940; P9058; Q9967

== ENCOUNTER 2021-07-10 00:55 | Emergency (ER) | payer MEDICARE, SELFPAY ==
[2021-07-10 01:01] VITALS: PULSE 86; RESP 18; TEMP 36.8; O2SAT 96; BMI 32.1
--- NOTE | 2021-07-10 01:49 | W.ED.SOB ---
HPI - SOB/Dyspnea General: Chief Complaint: Shortness of Breath/Dyspnea Stated Complaint: SOB Time Seen by Provider: 07/10/21 01:13 History of Present Illness: HPI Narrative: 75-year-old female with semirecent history of TAVR procedure, as well as chronic renal insufficiency and diastolic heart failure presenting shortness of breath. She had anemia on her last visit as well. She recently left the hospital 5 days ago or so. She returns tonight saying she is short of breath again, her feet are swollen again, and she feels tight around her chest. She has another complaint that she has not had a bowel movement in 4 days or so, and that I need a laxative . MD elicited complaint: shortness of breath Pertinent past history: congestive heart failure and other Context: recent illness Timing: constant Severity: moderate Exacerbating factors: lying flat Relieving factors: oxygen Known history of: congestive heart failure and other Associated symptoms: Reports abdominal pain, chest pain and orthopnea; Deny diaphoresis, extremity pain, fever(s), nausea, polyuria or vomiting Treatment prior to arrival: oxygen Review of Systems Const: Denies: fever(s) or diaphoresis Card: Reports: chest pain and orthopnea GI: Reports: abdominal pain; Denies: nausea or vomiting Musc: Denies: extremity pain Endo: Denies: polyuria PFSH ED PFSH: Medical History Acute hypokalemia Anemia Aortic stenosis on echo 07/2020: valve area 1.1 cm2, mean gradient 17.1 mmHg CKD (chronic kidney disease) stage 3, GFR 30-59 ml/min with GERARD in 07/2020 Critical lower limb ischemia Diabetes mellitus type II Diabetic ulcer of heel Diastolic CHF, chronic EF 55%, grade 2 Essential hypertension Fracture of lumbar spine (~09/2020) L2, from mechanical fall GI bleed (~07/2020) upper during hospitalization, while on prophylactic anticoagulation, required transfusion of 7 units of blood History of cardiovascular stress test (~08/2020) moderate area of persistent decreased uptake in the mid and apical anterior, mid inferolateral and apical segments with no significant reversibility however did have elevated TID ratio at 1.4 suggesting possible endocardial ischemia; managed medically due to CKD History of mechanical ventilation for respiratory failure from hypertensive emergency and flash pulmonary edema 07/2020; for CHF and pneumonia 08/2020 Hyperlipidemia Hyponatremia Nonhealing ulcer of heel follows with [facility] NSTEMI (non-ST elevated myocardial infarction) suspected type II process in 07/2020 and 08/2020, has not had cath due to CKD. On home oxygen therapy Peripheral arterial disease Surgical History History of esophagogastroduodenoscopy (EGD) (08/01/20) gastritis, duodenitis with some linear erosions in the stomach after NGT History of thoracentesis bilateral 08/2020, transudative right 09/2020 Surgical history unknown Hysterectomy documented previously, but patient still appears to have her uterus on her CAT scan Family History Other Cancer Rheumatoid arthritis Social History Smoking and tobacco status: never smoked Second hand smoke exposure: No Alcohol intake: never Lives independently: No Housing: Longterm Marital status: / Current occupational status: retired History of recent travel: No Current gender identity: Female Female Reproductive History: Para: 2 Physical Exam Const: COMMON NORMALS: no acute distress, patient oriented x3 and alert GENERAL APPEARANCE: cooperative and frail appearing HENMT: COMMON NORMALS: normocephalic HEAD & SCALP: normocephalic Eye: COMMON NORMALS: Equal, round and reactive pupils present CONJUNCTIVA: Yes conjunctival abnormal positive bilateral pallor PUPIL: Yes Equal, round and reactive pupils present Chest: COMMONS NORMALS: normal inspection of the chest Resp: COMMON NORMALS: normal respiratory effort, No use of accessory muscles and clear to auscultation bilaterally AUSCULTATION: clear to auscultation bilaterally Cardio: COMMON NORMALS: regular rate and regular rhythm RATE: regular rate RHYTHM: regular rhythm HEART SOUNDS: Murmur heart sound present GI: COMMON NORMALS: Soft to palpation INSPECTION: Yes abdominal distension (mild) PALPATION: Yes Soft to palpation and Yes Tenderness to palpation present (GI) (mild diffuse) Extremity: GENERAL: Yes edema (2+) Neuro: COMMON NORMALS: patient oriented x3 SENSORIUM/ORIENTATION: Yes alert Course Vital Signs: Vital signs: Vital Signs Temperature 98.2 F 07/10/21 01:01 Pulse Rate 82 07/10/21 04:42 Respiratory Rate 16 07/10/21 04:42 Blood Pressure 150/79 07/10/21 04:42 Pulse Oximetry 97 07/10/21 04:42 MDM - SOB/Dyspnea MDM Narrative: Medical decision making narrative: Hemoglobin is 9. Troponin is down from her prior admission. BNP is down from her prior admission. She has improvement of bilateral effusions on chest x-ray. She is given 60 mg of Lasix IV, and has begun to diurese. She is at her baseline in terms of oxygen usage and sats are good I think she may be allowed back home to the retirement. We will increase her dosage of Lasix for the next 3 days. Lab Data: Labs: Lab Results 07/10/21 07/10/21 07/10/21 03:15 03:15 03:15 WBC 9.7 10^3/uL 10^3/ uL (4.0-10.0) RBC 3.15 10^6/uL L 10 ^6/uL (4.1-5.3) Hgb 9.0 g/dL L g/dL (11.5-15.3) Hct 27.9 % L % (37.0-47.0) MCV 88.6 fl fl (81-99) MCH 28.6 pg pg (28.0-34.0) MCHC 32.3 g/dL g/dL (30.0-36.0) RDW 15.7 % H % (12.1-15.1) Plt Count 201 10^3/cmm 10^3 /cmm (130-400) MPV 9.9 fL fL (7.4-10.4) Neut % (Auto) 69.9 % % Lymph % (Auto) 14.3 % % [place] % (Auto) 7.4 % % Eos % (Auto) 7.0 % % Baso % (Auto) 1.0 % % Neut # (Auto) 6.81 10^3/uL 10^3 /uL (1.8-7.7) Lymph # (Auto) 1.4 10^3/uL 10^3/ uL (0.8-4.8) [place] # (Auto) 0.7 10^3/uL 10^3/ uL (0.2-0.9) Eos # (Auto) 0.7 10^3/uL 10^3/ uL (0.0-0.8) Baso # (Auto) 0.1 10^3/uL 10^3/ uL (0.0-0.1) Nucleated RBC % (a uto) 0 % % Nucleated RBCs # 0.0 /100WBC /100W BC Sodium 132 mmol/L L mmol /L (136-145) Potassium 4.2 mmol/L mmol/L (3.5-5.1) Chloride 99 mmol/L mmol/L (98-107) Carbon Dioxide 19 mmol/L L mmol/ L (22-29) Anion Gap 18.2 (5-19) BUN 20 mg/dL mg/dL (8-23) Creatinine 1.7 mg/dL H mg/dL (0.5-0.9) GFR Calculation Not Reportable Glucose 104 mg/dL mg/dL (65-115) Calculated Osmolal ity 277 mOsm/kg L mOs m/kg (285-295) Lactic Acid 0.6 mmol/L mmol/L (0.5-2.2) Calcium 8.0 mg/dL L mg/dL (8.5-10.5) Total Bilirubin 0.8 mg/dL mg/dL (0.15-1.2) AST 18 U/L U/L (0-32) ALT 9 U/L U/L (0-33) Alkaline Phosphata se 105 IU/L IU/L (35-105) Troponin T Baselin e NT-Pro-B Natriuret Pep 40318 pg/mL H pg/ mL (0-450) Total Protein 6.0 g/dL L g/dL (6.6-8.7) Albumin 3.5 g/dL g/dL (3.5-5.2) Globulin 2.5 g/dL g/dL (1.3-4.6) 07/10/21 03:15 WBC RBC Hgb Hct MCV MCH MCHC RDW Plt Count MPV Neut % (Auto) Lymph % (Auto) [place] % (Auto) Eos % (Auto) Baso % (Auto) Neut # (Auto) Lymph # (Auto) [place] # (Auto) Eos # (Auto) Baso # (Auto) Nucleated RBC % (a uto) Nucleated RBCs # Sodium Potassium Chloride Carbon Dioxide Anion Gap BUN Creatinine GFR Calculation Glucose Calculated Osmolal ity Lactic Acid Calcium Total Bilirubin AST ALT Alkaline Phosphata se Troponin T Baselin e 53 ng/L H ng/L (0-10) NT-Pro-B Natriuret Pep Total Protein Albumin Globulin Discharge Plan Discharge Patient Disposition: Home Clinical Impression: Shortness of breath at rest Congestive heart failure Qualifiers: Heart failure type: diastolic Heart failure chronicity: acute on chronic Qualified Code(s): I50.33 - Acute on chronic diastolic (congestive) heart failure Condition: Stable Prescriptions: No Action hydralazine 50 mg tablet 50 mg PO TID@08,12,18 RF: 0 atorvastatin 40 mg Tablet 40 mg PO QPM RF: 0 amlodipine 10 mg Tablet 10 mg PO DAILY RF: 0 Lasix 20 mg tablet 20 mg PO DAILY Qty: 30 RF: 2 potassium chloride 10 mEq capsule, extended release 10 meq PO DAILY Qty: 30 RF: 0 gabapentin 100 mg capsule 200 mg PO BID@08,12 RF: 0 multivitamin Tablet 1 tab PO DAILY@0800 RF: 0 ferrous sulfate 325 mg (65 mg iron) Tablet 325 mg PO DAILY@0800 RF: 0 polyethylene glycol 3350 [Miralax] 17 gram/dose Powder 17 g PO DAILY PRN (Reason: Constipation) RF: 0 pantoprazole [Protonix] 40 mg tablet,delayed release (DR/EC) 40 mg PO DAILY@0500 RF: 0 Discharge Orders: Discharge ED (Routine); Ordered 07/10/21 Ordered By: Sj Monroe Referrals: Jorge A Grayson MD [Primary Care Provider] - 1-3 days Discharge Activity: Increase activity as tolerated Patient Instructions: Heart Failure (ED) Activity Restrictions/Additional Instructions: Increase your furosemide dosage from 20 mg daily to 20 mg twice daily for the next 3 days, then back to the normal daily dose. Return to the emergency room for chest discomfort, worsening shortness of breath despite treatment, fever greater than 100, mental status changes, other concerns. Coding Level of Care Code ED Potato Grader for Janice Long Exam Comprehensive
--- NOTE | 2021-07-10 01:56 | XRR_ITS ---
PROCEDURE INFORMATION: Exam: XR Chest Exam date and time: 07/10/2021 1:56 AM Age: 75 years old Clinical indication: Shortness of breath; Prior surgery; Surgery type: Tavr; Patient HX: C/O SOB. History of chf. TECHNIQUE: Imaging protocol: XR of the chest. Views: 1 view. COMPARISON: CR (CHEST, ) 07/02/2021 10:32 PM FINDINGS: Tubes, catheters and devices: Aortic valve prosthesis is in place. Lungs: There is enlargement of the pulmonary vascularity. There is thickening of the interstitial markings. Pleural spaces: Small bilateral pleural effusions. Heart/Mediastinum: The heart is mildly enlarged. Bones/joints: Unremarkable. XR/XR chest 1V portable [id number] IMPRESSION: 1. Mild Congestive heart failure. 2. Small bilateral pleural effusions. Radiation Dose CTDIVOL = (mGy): DLP = (mGy-cm)
--- NOTE | 2021-07-10 01:57 | ECG_ITS ---
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 Measurements Intervals [place] Rate: 82 P: -1 AR: 163 QRS: -32 QRSD: 121 T: 132 QT: 407 QTc: 476 Interpretive Statements SINUS RHYTHM LEFT AXIS DEVIATION [QRS AXIS < -30] LEFT VENTRICULAR HYPERTROPHY AND ST-T CHANGE [VOLTAGE CRITERIA PLUS ST/T ABNORMALITY] Compared to ECG 07/03/2021 04:07:01 Left-axis deviation now present Left ventricular hypertrophy now present ST (T wave) deviation now present Left anterior fascicular block no longer present Myocardial infarct finding no longer present Electronically Signed On 07-11-2021 13:18:22 SUPERVISOR CELL EFFICIENCY by Paul Freitas M.D. [id number]
[2021-07-10] MEDS: FUROsemide 10 mg/mL SDV 10mL 60 MG IVP (03:12)
[2021-07-10 03:30] LABS: Basophils # 0.1 10^3/uL (0.0-0.1); Eosinophils # 0.7 10^3/uL (0.0-0.8); Hematocrit 27.9 % (37.0-47.0); Lymphocytes # 1.4 10^3/uL (0.8-4.8); Lymphocytes % 14.3 %; Mean Corpuscular HGB Conc 32.3 g/dL (30.0-36.0); Mean Corpuscular Hemoglobin 28.6 pg (28.0-34.0); Mean Corpuscular Volume 88.6 fl (81-99); Mean Platelet Volume 9.9 fL (7.4-10.4); Monocytes # 0.7 10^3/uL (0.2-0.9); Monocytes % 7.4 %; Neutrophils # 6.81 10^3/uL (1.8-7.7); Neutrophils % 69.9 %; Nucleated Red Blood Cells % 0 %; Platelet Count 201 10^3/cmm (130-400); Red Blood Count 3.15 10^6/uL (4.1-5.3); Red Cell Distribution Width 15.7 % (12.1-15.1); White Blood Count 9.7 10^3/uL (4.0-10.0)
[2021-07-10 03:48] LABS: Lactic Sepsis W/Reflex 0.6 mmol/L (0.5-2.2)
[2021-07-10 03:50] LABS: Troponin(5th) Baseline 53 ng/L (0-10)
--- NOTE | 2021-07-10 03:57 | ECG_ITS ---
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 Measurements Intervals [place] Rate: 73 P: -5 ID: 168 QRS: -50 QRSD: 122 T: 86 QT: 423 QTc: 469 Interpretive Statements SINUS RHYTHM LEFT ANTERIOR FASCICULAR BLOCK [QRS AXIS <= -45, QR IN I, RS IN II] POSSIBLE ANTERIOR MYOCARDIAL INFARCTION , OF INDETERMINATE AGE [30 ms Q WAVE IN V3/V4, OR R < 0.2 mV IN V4] Compared to ECG 07/10/2021 02:41:35 Left anterior fascicular block now present Myocardial infarct finding now present Left-axis deviation no longer present Left ventricular hypertrophy no longer present ST (T wave) deviation no longer present Electronically Signed On 07-12-2021 17:30:21 PATROL DEPUTY SHERIFF by Paul Freitas M.D. [id number]
[2021-07-10 03:58] LABS: Alanine Aminotransferase 9 U/L (0-33); Albumin Level 3.5 g/dL (3.5-5.2); Alkaline Phosphatase 105 IU/L (35-105); Anion Gap 18.2 (5-19); Aspartate Amino Transferase 18 U/L (0-32); Blood Urea Nitrogen 20 mg/dL (8-23); Carbon Dioxide 19 mmol/L (22-29); Chloride 99 mmol/L (98-107); Globulin 2.5 g/dL (1.3-4.6); Glucose 104 mg/dL (65-115); NT Pro B Type Natriuretic Pept 20895 pg/mL (0-450); Osmolality Calculated 277 mOsm/kg (285-295); Potassium 4.2 mmol/L (3.5-5.1); Sodium 132 mmol/L (136-145); Total Bilirubin 0.8 mg/dL (0.15-1.2)
[2021-07-10 04:42] VITALS: BP 150/79; PULSE 82; RESP 16; O2SAT 97
[2021-07-10 06:08] VITALS: BP 142/69; PULSE 69; RESP 16; O2SAT 97
[2021-07-10 06:52] LABS: Troponin 5 2HR 54.33 ng/L (0-10); Troponin 5 2HR Delta 1.33 ABS# (0-10)
[2021-07-10 07:30] VITALS: BP 150/84; PULSE 75; RESP 16; O2SAT 97
[2021-07-10] MEDS: magnesium citrate Btl 296 mL PO (07:31)
== END 2021-07-10 08:01 | disposition home or self-care (01) ==
PROVIDERS: Emergency Provider Emergency Medicine; PCP Family Medicine
DX: R06.02 Shortness of breath (principal); I13.0 Hypertensive heart and chronic kidney disease with heart failure and stage 1 through stage 4 chronic kidney disease, or unspecified chronic kidney disease; E11.22 Type 2 diabetes mellitus with diabetic chronic kidney disease; N18.30 Chronic kidney disease, stage 3 unspecified; I50.33 Acute on chronic diastolic (congestive) heart failure; E78.5 Hyperlipidemia, unspecified; I25.2 Old myocardial infarction; Z99.81 Dependence on supplemental oxygen
CPT/HCPCS: 71045; 80053; 83605; 83880; 84484; 85025; 93005; 96374; 99284; J1940

== ENCOUNTER 2021-07-15 02:17 | Emergency (ER) | payer MEDICARE, SELFPAY ==
[2021-07-15 02:20] VITALS: BP 168/59; PULSE 85; RESP 18; TEMP 36.2; O2SAT 94; BMI 27.1
[2021-07-15 02:21] VITALS: BP 168/59; PULSE 84; RESP 22; O2SAT 94
--- NOTE | 2021-07-15 02:21 | XRR_ITS ---
PROCEDURE INFORMATION: Exam: XR Chest Exam date and time: 07/15/2021 2:21 AM Age: 75 years old Clinical indication: Cough and shortness of breath; Patient HX: Cough with SOB. History of chf. TECHNIQUE: Imaging protocol: XR of the chest. Views: 1 view. COMPARISON: CR (CHEST, ) 07/10/2021 2:02 AM FINDINGS: Lungs: See Heart/Mediastinum finding. Pleural spaces: Bilateral pleural effusions without significant change. Heart/Mediastinum: Heart partially obscured by basilar opacities. Vasculature: Prosthesis in place at aortic root. Bones/joints: No acute findings. XR/XR chest 1V portable [id number] IMPRESSION: No significant change from prior study; bilateral pleural effusions appear similar.
--- NOTE | 2021-07-15 02:21 | ECG_ITS ---
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1945 Requested By: Jorge A Gonsalez Order Number: [id number] Reading MD: JARED KEARNEY Measurements Intervals [place] Rate: 87 P: 10 MT: 182 QRS: -40 QRSD: 112 T: 79 QT: 380 QTc: 459 Interpretive Statements SINUS RHYTHM WITH OCCASIONAL SUPRAVENTRICULAR PREMATURE COMPLEXES LEFT AXIS DEVIATION [QRS AXIS < -30] LEFT VENTRICULAR HYPERTROPHY AND ST-T CHANGE [VOLTAGE CRITERIA PLUS ST/T ABNORMALITY] POSSIBLE ANTERIOR MYOCARDIAL INFARCTION , OF INDETERMINATE AGE [30 ms Q WAVE IN V3/V4, OR R < 0.2 mV IN V4] Compared to ECG 07/10/2021 05:28:16 Left-axis deviation now present Left ventricular hypertrophy now present ST (T wave) deviation now present Left anterior fascicular block no longer present Myocardial infarct finding still present Electronically Signed On 07-15-2021 9:59:22 DIRECTOR CALL CENTER SALES by JARED KEARNEY [id number]
--- NOTE | 2021-07-15 02:24 | ED_ITS ---
HPI - SOB/Dyspnea General: Chief Complaint: Shortness of Breath/Dyspnea Stated Complaint: SOB Time Seen by Provider: 07/15/21 02:18 Source: patient and EMS Mode of arrival: EMS Limitations: no limitations History of Present Illness: HPI Narrative: 75-year-old female has extensive history of congestive heart failure also had a aortic valve replacement earlier this year and seen here multiple times for congestive heart failure exacerbation she seen here 5 days ago given Lasix here but is still on 20 mg of Lasix daily at the skilled nursing she had increasing shortness of breath tonight along with lower extremity edema patient here is 92% currently on 4 L she is typically on 2 L at the skilled nursing skilled nursing states she was in the 80s on her 2 L she had no pain no fever no cough denies any worsening proving factors. Associated symptoms: Deny abdominal pain, chest pain, fever(s), nausea or vomiting Review of Systems Const: Denies: fever(s), chills, body aches or change in appetite Eyes: Denies: blurry vision or eye discomfort ENMT: Denies: throat pain or dental pain Card: Denies: chest pain Resp: Reports: dyspnea GI: Denies: abdominal pain, nausea, vomiting or diarrhea : Denies: dysuria Musc: Reports: extremity swelling; Denies: neck pain or back pain Skin/Breast: Denies: rash Neuro: Denies: headache(s) Psych: Denies: depression Anuj/Lymph: Denies: easy bruising All/Imm: Denies: urticaria PFSH ED PFSH: Medical History (Updated 07/15/21 @ 03:54 by Rebekah Christian MD) Acute hypokalemia Anemia Aortic stenosis TAVR 06/2021, [facility] CKD (chronic kidney disease) stage 3, GFR 30-59 ml/min Compression fracture of L2 (~09/2020) from mechanical fall Congestive heart failure EF 25 % 06/2021, combined systolic and diastolic Critical lower limb ischemia Diabetes mellitus type II Diabetic ulcer of heel Essential hypertension Fracture of lumbar spine (~09/2020) L2, from mechanical fall GI bleed (~07/2020) upper during hospitalization, while on prophylactic anticoagulation, required transfusion of 7 units of blood History of cardiovascular stress test (~08/2020) moderate area of persistent decreased uptake in the mid and apical anterior, mid inferolateral and apical segments with no significant reversibility however did have elevated TID ratio at 1.4 suggesting possible endocardial ischemia; managed medically due to CKD History of mechanical ventilation for respiratory failure from hypertensive emergency and flash pulmonary edema 07/2020; for CHF and pneumonia 08/2020 Hyperlipidemia Hyponatremia Nonhealing ulcer of heel follows with Dr [facility] NSTEMI (non-ST elevated myocardial infarction) suspected type II process in 07/2020 and 08/2020, has not had cath due to CKD. On home oxygen therapy Peripheral arterial disease Surgical History (Updated 07/15/21 @ 03:54 by Rebekah Christian MD) History of cardiac cath (~06/2021) occluded left main, 60% LAD lesions per outside records History of esophagogastroduodenoscopy (EGD) (08/01/20) gastritis, duodenitis with some linear erosions in the stomach after NGT History of thoracentesis bilateral 08/2020, transudative right 09/2020 History of transcatheter aortic valve replacement (TAVR) (06/21/21) Surgical history unknown Hysterectomy documented previously, but patient still appears to have her uterus on her CAT scan Family History Other Cancer Rheumatoid arthritis Social History Smoking and tobacco status: never smoked Second hand smoke exposure: No Alcohol intake: never Lives independently: No Housing: [place] Marital status: / Current occupational status: retired History of recent travel: No Current gender identity: Female Female Reproductive History: Para: 2 Physical Exam Const: COMMON NORMALS: no acute distress, patient oriented x3 and healthy appearing HENMT: COMMON NORMALS: normocephalic and atraumatic HEAD & SCALP: normocephalic and atraumatic Eye: COMMON NORMALS: Equal, round and reactive pupils present and EOMs intact bilaterally PUPIL: Yes Equal, round and reactive pupils present Neck/C-Spine: COMMON NORMALS: full ROM and supple Chest: COMMONS NORMALS: normal inspection of the chest and normal palpation of entire chest wall Resp: COMMON NORMALS: normal respiratory effort, No retractions, No use of accessory muscles and clear to auscultation bilaterally AUSCULTATION: clear to auscultation bilaterally Cardio: COMMON NORMALS: regular rate, regular rhythm and No murmurs present (Cardio) RATE: regular rate RHYTHM: regular rhythm GI: COMMON NORMALS: Normal to inspection, nondistended, normoactive bowel so unds present, Soft to palpation, non-tender and no masses PALPATION: Yes Soft to palpation Extremity: COMMON NORMALS: full ROM NARRATIVE EXTREMITY EXAM: 2+ edema Neuro: COMMON NORMALS: patient oriented x3, moves all extremities and no focal motor deficits Psych: COMMON NORMALS: mental status grossly normal, Normal thought process present and cooperative THOUGHT PROCESS: Normal thought process present Skin: COMMON NORMALS: no rashes or lesions noted and no wounds GENERAL SKIN EXAM: no rashes or lesions noted Course Vital Signs: Vital signs: Vital Signs Temperature 97.1 F L 07/15/21 02:20 Pulse Rate 75 07/15/21 03:30 Respiratory Rate 22 H 07/15/21 03:30 Blood Pressure 172/61 07/15/21 03:30 Pulse Oximetry 93 07/15/21 03:30 MDM - SOB/Dyspnea MDM Narrative: Medical decision making narrative: Patient presents here with dyspnea is chronic in nature with chronic congestive heart failure her BNP is improved from previous shows her troponin patient's x-ray shows no change patient here is on 3 L currently at pulse ox 96% we were an IV dose of Lasix we will increase her Lasix dose from home from 20-40. She is stable for discharge to skilled nursing and return if worsening. Lab Data: Labs: Lab Results 07/15/21 07/15/21 07/15/21 02:34 02:34 02:34 WBC 9.8 10^3/uL 10^3/ uL (4.0-10.0) RBC 3.03 10^6/uL L 10 ^6/uL (4.1-5.3) Hgb 8.6 g/dL L g/dL (11.5-15.3) Hct 27.5 % L % (37.0-47.0) MCV 90.8 fl fl (81-99) MCH 28.4 pg pg (28.0-34.0) MCHC 31.3 g/dL g/dL (30.0-36.0) RDW 14.9 % % (12.1-15.1) Plt Count 209 10^3/cmm 10^3 /cmm (130-400) MPV 10.1 fL fL (7.4-10.4) Neut % (Auto) 83.5 % % Lymph % (Auto) 7.7 % % Clayton % (Auto) 4.8 % % Eos % (Auto) 3.1 % % Baso % (Auto) 0.5 % % Neut # (Auto) 8.21 10^3/uL H 10 ^3/uL (1.8-7.7) Lymph # (Auto) 0.8 10^3/uL 10^3/ uL (0.8-4.8) [place] # (Auto) 0.5 10^3/uL 10^3/ uL (0.2-0.9) Eos # (Auto) 0.3 10^3/uL 10^3/ uL (0.0-0.8) Baso # (Auto) 0.1 10^3/uL 10^3/ uL (0.0-0.1) Nucleated RBC % (a uto) 0 % % Nucleated RBCs # 0.0 /100WBC /100W BC PT 14.10 SECONDS SEC ONDS (12.1-14.9) INR 1.06 (0.8-1.2) Specimen Type Sample Site ABG pH ABG pCO2 ABG pO2 ABG HCO3 ABG Base Excess Jaren Test Hematocrit O2 Delivery Device O2 Liters/Min Ceramics Machine Operator ID Sodium 128 mmol/L L mmol /L (136-145) Potassium 4.3 mmol/L mmol/L (3.5-5.1) Chloride 93 mmol/L L mmol/ L (98-107) Carbon Dioxide 22 mmol/L mmol/L (22-29) Anion Gap 17.3 (5-19) BUN 18 mg/dL mg/dL (8-23) Creatinine 1.8 mg/dL H mg/dL (0.5-0.9) GFR Calculation Not Reportable Glucose 132 mg/dL H mg/dL (65-115) Calculated Osmolal ity 270 mOsm/kg L mOs m/kg (285-295) Calcium 8.2 mg/dL L mg/dL (8.5-10.5) Total Bilirubin 0.4 mg/dL mg/dL (0.15-1.2) AST 21 U/L U/L (0-32) ALT 11 U/L U/L (0-33) Alkaline Phosphata se 99 IU/L IU/L (35-105) Troponin T Baselin e NT-Pro-B Natriuret Pep 42271 pg/mL H pg/ mL (0-450) Total Protein 6.6 g/dL g/dL (6.6-8.7) Albumin 3.5 g/dL g/dL (3.5-5.2) Globulin 3.1 g/dL g/dL (1.3-4.6) 07/15/21 07/15/21 02:34 02:58 WBC RBC Hgb Hct MCV MCH MCHC RDW Plt Count MPV Neut % (Auto) Lymph % (Auto) Clayton % (Auto) Eos % (Auto) Baso % (Auto) Neut # (Auto) Lymph # (Auto) Clayton # (Auto) Eos # (Auto) Baso # (Auto) Nucleated RBC % (a uto) Nucleated RBCs # PT INR Specimen Type Arterial Sample Site Radial, right ABG pH 7.35 (7.35-7.45) ABG pCO2 51.9 mmHg H mmHg (35-45) ABG pO2 61.4 mmHg L mmHg (80.0-100.0) ABG HCO3 28.5 mmol/L H mmo l/L (22-26) ABG Base Excess 2.3 mmol/L H mmol /L (-2.0-2.0) Jaren Test Pos Hematocrit 27.0 % L % (37-47) O2 Delivery Device Nc O2 Liters/Min 6.0 % % Ceramics Machine Operator ID Buttr Sodium Potassium Chloride Carbon Dioxide Anion Gap BUN Creatinine GFR Calculation Glucose Calculated Osmolal ity Calcium Total Bilirubin AST ALT Alkaline Phosphata se Troponin T Baselin e 46 ng/L H ng/L (0-10) NT-Pro-B Natriuret Pep Total Protein Albumin Globulin Imaging Data^: CXR: Attestation: I personally reviewed and interpreted this imaging study as follows: Radiologist's impression: [address] [address] XRay Report Signed Patient: Elizabeth Lima Unit #: [id number] : 1945 Age/Sex: 75 / F ADM Date: 07/15/21 Loc: ER Room/Bed: Attending Dr: Ordering Provider/Ordering MD: Jorge A Gonsalez MD Date of Service: 07/15/21 Procedure(s): XR chest 1V portable [id number] Accession Number(s): [id number] Report Number: [id number] PROCEDURE INFORMATION: Exam: XR Chest Exam date and time: 07/15/2021 2:21 AM Age: 75 years old Clinical indication: Cough and shortness of breath; Patient HX: Cough with SOB. History of chf. TECHNIQUE: Imaging protocol: XR of the chest. Views: 1 view. COMPARISON: CR (CHEST, ) 07/10/2021 2:02 AM FINDINGS: Lungs: See Heart/Mediastinum finding. Pleural spaces: Bilateral pleural effusions without significant change. Heart/Mediastinum: Heart partially obscured by basilar opacities. Vasculature: Prosthesis in place at aortic root. Bones/joints: No acute findings. XR/XR chest 1V portable [id number] IMPRESSION: No significant change from prior study; bilateral pleural effusions appear similar. Dictated By: Harry Anton MD Signed By: Harry Anton MD Signed Date/Time: 07/15/21350 DD/ 0 EKG Data^: EKG 1: Attestation: I personally reviewed and interpreted this EKG as follows: EKG Interpretation Date: 07/15/21 EKG interpretation time: 02:36 Interpretation: nsr hr [address] or t wave abnormalities qrs 112 qtc 425 Discharge Plan Discharge Patient Disposition: Home Clinical Impression: Congestive heart failure Condition: Stable Prescriptions: Changed Lasix 20 mg tablet 40 mg PO DAILY Qty: 30 RF: 2 No Action hydralazine 50 mg tablet 50 mg PO TID@08,,18 RF: 0 atorvastatin 40 mg Tablet 40 mg PO QPM RF: 0 amlodipine 10 mg Tablet 10 mg PO DAILY RF: 0 potassium chloride 10 mEq capsule, extended release 10 meq PO DAILY Qty: 30 RF: 0 gabapentin 100 mg capsule 200 mg PO BID@08,12 RF: 0 multivitamin Tablet 1 tab PO DAILY@0800 RF: 0 ferrous sulfate 325 mg (65 mg iron) Tablet 325 mg PO DAILY@0800 RF: 0 polyethylene glycol 3350 [Miralax] 17 gram/dose Powder 17 g PO DAILY PRN (Reason: Constipation) RF: 0 pantoprazole [Protonix] 40 mg tablet,delayed release (DR/EC) 40 mg PO DAILY@0500 RF: 0 Discharge Orders: Discharge ED (Routine); Ordered 07/15/21 Ordered By: Jorge A Gonsalez Referrals: Jorge A Grayson MD [Primary Care Provider] - Discharge Diet: Advance as tolerated Discharge Activity: Resume usual activity Patient Instructions: Heart Failure (ED) Coding Level of Care Code ED Real Property Evaluator for [place] Fwd Exam Comprehensive
[2021-07-15 02:44] LABS: Basophils # 0.1 10^3/uL (0.0-0.1); Basophils % 0.5 %; Eosinophils # 0.3 10^3/uL (0.0-0.8); Eosinophils % 3.1 %; Hematocrit 27.5 % (37.0-47.0); Hemoglobin 8.6 g/dL (11.5-15.3); Lymphocytes # 0.8 10^3/uL (0.8-4.8); Lymphocytes % 7.7 %; Mean Corpuscular HGB Conc 31.3 g/dL (30.0-36.0); Mean Corpuscular Hemoglobin 28.4 pg (28.0-34.0); Mean Corpuscular Volume 90.8 fl (81-99); Mean Platelet Volume 10.1 fL (7.4-10.4); Monocytes # 0.5 10^3/uL (0.2-0.9); Monocytes % 4.8 %; Neutrophils # 8.21 10^3/uL (1.8-7.7); Neutrophils % 83.5 %; Nucleated Red Blood Cells % 0 %; Platelet Count 209 10^3/cmm (130-400); Red Blood Count 3.03 10^6/uL (4.1-5.3); Red Cell Distribution Width 14.9 % (12.1-15.1); White Blood Count 9.8 10^3/uL (4.0-10.0)
[2021-07-15 03:05] LABS: INR 1.06 (0.8-1.2)
[2021-07-15] MEDS: FUROsemide 10 mg/mL SDV 10mL 60 MG IVP (03:07)
[2021-07-15 03:08] VITALS: BP 173/69; PULSE 84; RESP 22; O2SAT 93
[2021-07-15 03:09] LABS: ABG PCO2 51.9 mmHg (35-45); ABG PH Result 7.35 (7.35-7.45); Base Excess ABG 2.3 mmol/L (-2.0-2.0); Blood Gas Allen Test Pos; Blood Gas Sample Type Arterial; HCO3 ABG 28.5 mmol/L (22-26); PO2 ABG 61.4 mmHg (80.0-100.0)
[2021-07-15 03:10] LABS: Blood Gas Sample Site Radial, right; Oxygen Device NC
[2021-07-15 03:17] LABS: Troponin(5th) Baseline 46 ng/L (0-10)
[2021-07-15 03:24] LABS: Alanine Aminotransferase 11 U/L (0-33); Albumin Level 3.5 g/dL (3.5-5.2); Alkaline Phosphatase 99 IU/L (35-105); Anion Gap 17.3 (5-19); Aspartate Amino Transferase 21 U/L (0-32); Blood Urea Nitrogen 18 mg/dL (8-23); Calcium 8.2 mg/dL (8.5-10.5); Carbon Dioxide 22 mmol/L (22-29); Chloride 93 mmol/L (98-107); Globulin 3.1 g/dL (1.3-4.6); Glucose 132 mg/dL (65-115); NT Pro B Type Natriuretic Pept 17111 pg/mL (0-450); Osmolality Calculated 270 mOsm/kg (285-295); Potassium 4.3 mmol/L (3.5-5.1); Sodium 128 mmol/L (136-145); Total Bilirubin 0.4 mg/dL (0.15-1.2); Total Protein 6.6 g/dL (6.6-8.7)
[2021-07-15 03:30] VITALS: BP 172/61; PULSE 75; RESP 22; O2SAT 93
[2021-07-15] MEDS: hyDRALAzine 20 mg/mL INJ 1 mL 10 MG IVP (03:40)
[2021-07-15 04:30] VITALS: BP 154/66; PULSE 84; RESP 22; O2SAT 93
== END 2021-07-15 04:58 | disposition home or self-care (01) ==
PROVIDERS: Emergency Provider Emergency Medicine; PCP Family Medicine
DX: I13.0 Hypertensive heart and chronic kidney disease with heart failure and stage 1 through stage 4 chronic kidney disease, or unspecified chronic kidney disease (principal); E11.22 Type 2 diabetes mellitus with diabetic chronic kidney disease; I50.9 Heart failure, unspecified; N18.30 Chronic kidney disease, stage 3 unspecified; E78.5 Hyperlipidemia, unspecified; I25.2 Old myocardial infarction; Z99.81 Dependence on supplemental oxygen
CPT/HCPCS: 36600; 71045; 80053; 82803; 83880; 84484; 85025; 85610; 93005; 96374; 96375; 99284; J0360; J1940

== ENCOUNTER 2021-07-26 19:27 | Observation (INO) | payer MEDICARE, SELFPAY ==
--- NOTE | 2021-07-26 19:28 | ECG_ITS ---
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 Measurements Intervals [place] Rate: 63 P: 22 WA: 172 QRS: -45 QRSD: 104 T: 1 QT: 423 QTc: 434 Interpretive Statements SINUS RHYTHM LEFT AXIS DEVIATION [QRS AXIS < -30] LEFT VENTRICULAR HYPERTROPHY AND ST-T CHANGE POSSIBLE ANTERIOR MYOCARDIAL INFARCTION , OF INDETERMINATE AGE Compared to ECG 07/15/2021 02:36:57 No significant changes Electronically Signed On 07-27-2021 17:55:09 RESERVE OPERATOR by Kristy Faye M.D. [email or web address]
--- NOTE | 2021-07-26 19:28 | XRR_ITS ---
PROCEDURE INFORMATION: Exam: XR Chest Exam date and time: 07/26/2021 7:28 PM Age: 76 years old Clinical indication: Shortness of breath; Additional info: Dyspnea TECHNIQUE: Imaging protocol: XR of the chest. Views: 1 view. COMPARISON: CR (CHEST, ) 07/15/2021 2:25 AM FINDINGS: Lungs: Bibasilar atelectasis. Pleural spaces: Bilateral small volume pleural effusions. No pneumothorax. Heart/Mediastinum: Stable cardiomegaly. Bones/joints: Visualized osseous structures are intact. XR/XR chest 1V portable [id number] IMPRESSION: Cardiomegaly with bilateral small volume bilateral pleural effusions and bibasilar atelectasis.
[2021-07-26 19:33] VITALS: BP 139/46; PULSE 67; RESP 18; TEMP 36.7; O2SAT 92; BMI 26.9
[2021-07-26 20:35] LABS: ABG PCO2 42.3 mmHg (35-45); ABG PH Result 7.43 (7.35-7.45); Arterial Blood Gas Hematocrit 25.9 % (37-47); Blood Gas Allen Test Pos; Blood Gas Sample Site Radial, left; Blood Gas Sample Type Arterial; HCO3 ABG 27.7 mmol/L (22-26); Oxygen Device NC
[2021-07-26 20:49] LABS: Basophils # 0.1 10^3/uL (0.0-0.1); Basophils % 0.9 %; Eosinophils # 0.4 10^3/uL (0.0-0.8); Eosinophils % 4.9 %; Hematocrit 27.3 % (37.0-47.0); Lymphocytes # 0.9 10^3/uL (0.8-4.8); Lymphocytes % 10.6 %; Mean Corpuscular Volume 88.1 fl (81-99); Mean Platelet Volume 9.9 fL (7.4-10.4); Monocytes # 0.6 10^3/uL (0.2-0.9); Monocytes % 6.8 %; Neutrophils # 6.21 10^3/uL (1.8-7.7); Neutrophils % 76.4 %; Nucleated Red Blood Cells % 0 %; Platelet Count 278 10^3/cmm (130-400); Red Cell Distribution Width 15.6 % (12.1-15.1); White Blood Count 8.1 10^3/uL (4.0-10.0)
[2021-07-26 21:05] VITALS: BP 136/58; PULSE 65; RESP 20; O2SAT 96
--- NOTE | 2021-07-26 21:17 | W.ED.GENADLT ---
HPI - General Adult General: Chief complaint: Shortness of Breath/Dyspnea Stated complaint: chf Time Seen by Provider: 07/26/21 19:28 History of Present Illness: HPI narrative: Patient is a 76-year-old female with a history chronic CHF, aortic stenosis s/p valvular repair 1 month prior presenting to emergency room with generalized weakness and inability to care for self per family. Patient's lasix was recently discontinued last week by Dr. Dockery. Since last week, patient's family noticed that she has had increased swelling in the lower extremities. Earlier today, family called EMS given her confusion and decreased energy x 2 days. By the time EMS arrived, patient was noted to be satting 78% on room air. Patient is requiring 5 L of oxygen. Patient tells me that she is feeling weak all over. Denies any dyspnea, cough, fever/chills, chest pain or shortness breath. Onset:acutely 2 days ago of decreased activity and energy Duration:2 days Location:home Severity:moderate/severe Review of Systems Narrative: Constitutional: No fever, no chills. HEENT: No vision changes CV: No chest pain, no palpitations PULM: no cough, +dyspnea. GI: No abdominal pain, no N/V/D. : No dysuria MSKEL: No muscle pain, +leg swelling b/l SKIN: No new rashes, no lesions. NEURO: No headache, no focal weakness. +generalized weakness HEME: No visible bruises PSYCH: Normal mood PFS ED PFSH: Medical History (Updated 07/26/21 @ 21:17 by Maegan Marte MD) Acute hypokalemia Anemia Aortic stenosis TAVR 06/2021, [facility] CKD (chronic kidney disease) stage 3, GFR 30-59 ml/min Compression fracture of L2 (~09/2020) from mechanical fall Congestive heart failure EF 25 % 06/2021, combined systolic and diastolic Critical lower limb ischemia Diabetes mellitus type II Diabetic ulcer of heel Essential hypertension Fracture of lumbar spine (~09/2020) L2, from mechanical fall GI bleed (~07/2020) upper during hospitalization, while on prophylactic anticoagulation, required transfusion of 7 units of blood History of cardiovascular stress test (~08/2020) moderate area of persistent decreased uptake in the mid and apical anterior, mid inferolateral and apical segments with no significant reversibility however did have elevated TID ratio at 1.4 suggesting possible endocardial ischemia; managed medically due to CKD History of mechanical ventilation for respiratory failure from hypertensive emergency and flash pulmonary edema 07/2020; for CHF and pneumonia 08/2020 Hyperlipidemia Hyponatremia Nonhealing ulcer of heel follows with Dr Reyes [facility] NSTEMI (non-ST elevated myocardial infarction) suspected type II process in 07/2020 and 08/2020, has not had cath due to CKD. On home oxygen therapy Peripheral arterial disease Surgical History History of cardiac cath (~06/2021) occluded left main, 60% LAD lesions per outside records History of esophagogastroduodenoscopy (EGD) (08/01/20) gastritis, duodenitis with some linear erosions in the stomach after NGT History of thoracentesis bilateral 08/2020, transudative right 09/2020 History of transcatheter aortic valve replacement (TAVR) (06/21/21) Surgical history unknown Hysterectomy documented previously, but patient still appears to have her uterus on her CAT scan Family History Other Cancer Rheumatoid arthritis Social History Smoking and tobacco status: never smoked Second hand smoke exposure: No Alcohol intake: never Lives independently: No Housing: Assisted Marital status: / Current occupational status: retired History of recent travel: No Current gender identity: Female Female Reproductive History: Para: 2 Physical Exam Narrative: EXAM NARRATIVE: Head: Atraumatic Eyes: PERRL, conjunctiva without injection ENT: Mucous membrane moist NECK: Supple, ROM intact LUNGS: Crackles b/l with decreased breath sounds b/l CV: RRR ABDOMEN: Soft, nontender in all quadrants EXTREMITY: 2+ edema in the b/l lower extremities, 1+ edema in the b/l upper extremities SKIN: No rash or erythema NEURO: Awake and alert, no focal motor deficits PSYCH: Normal mood and affect Course Vital Signs: Vital signs: Vital Signs Temperature 98.1 F 07/26/21 19:33 Pulse Rate 65 07/26/21 21:05 Respiratory Rate 20 H 07/26/21 21:05 Blood Pressure 136/58 07/26/21 21:05 Pulse Oximetry 96 07/26/21 21:05 MDM - General Adult MDM Narrative: Medical decision making narrative: Patient is 76-year-old female with a history of CHF off Lasix presenting to the emergency room with concerns for volume overload and increased oxygen requirement. Patient is satting at 94% on 5 L of oxygen. He has signs of volume overload[place] [address], higher compared to prior evaluations. Chest x-ray is showing worsening pulmonary edema with mild bilateral pleural effusions. Patient s/p Lasix 60 mg. Patient is a chronic creatinine of 1.8. Family was not happy with patient's rehabilitation at [facility] (prefers [facility]) and would like to see a instructional systems design consultant for management of patient's advanced heart failure (has an appointment with Dr. Steele's nurse practitioner on 07/27 at 3pm). Disposition: Admission Lab Data: Labs: Lab Results 07/26/21 07/26/21 07/26/21 20:24 20:36 20:36 WBC 8.1 10^3/uL 10^3/ uL (4.0-10.0) RBC 3.10 10^6/uL L 10 ^6/uL (4.1-5.3) Hgb 9.0 g/dL L g/dL (11.5-15.3) Hct 27.3 % L % (37.0-47.0) MCV 88.1 fl fl (81-99) MCH 29.0 pg pg (28.0-34.0) MCHC 33.0 g/dL g/dL (30.0-36.0) RDW 15.6 % H % (12.1-15.1) Plt Count 278 10^3/cmm 10^3 /cmm (130-400) MPV 9.9 fL fL (7.4-10.4) Neut % (Auto) 76.4 % % Lymph % (Auto) 10.6 % % [place] % (Auto) 6.8 % % Eos % (Auto) 4.9 % % Baso % (Auto) 0.9 % % Neut # (Auto) 6.21 10^3/uL 10^3 /uL (1.8-7.7) Lymph # (Auto) 0.9 10^3/uL 10^3/ uL (0.8-4.8) [place] # (Auto) 0.6 10^3/uL 10^3/ uL (0.2-0.9) Eos # (Auto) 0.4 10^3/uL 10^3/ uL (0.0-0.8) Baso # (Auto) 0.1 10^3/uL 10^3/ uL (0.0-0.1) Nucleated RBC % (a uto) 0 % % Nucleated RBCs # 0.0 /100WBC /100W BC Specimen Type Arterial Sample Site Radial, left ABG pH 7.43 (7.35-7.45) ABG pCO2 42.3 mmHg mmHg (35-45) ABG pO2 71.0 mmHg L mmHg (80.0-100.0) ABG HCO3 27.7 mmol/L H mmo l/L (22-26) ABG Base Excess 3.0 mmol/L H mmol /L (-2.0-2.0) Jaren Test Pos Hematocrit 25.9 % L % (37-47) O2 Delivery Device Nc O2 Liters/Min 4.0 % % Electronics Repair Technician ID Nicer2 Sodium 133 mmol/L L mmol /L (136-145) Potassium 4.0 mmol/L mmol/L (3.5-5.1) Chloride 96 mmol/L L mmol/ L (98-107) Carbon Dioxide 23 mmol/L mmol/L (22-29) Anion Gap 18.0 (5-19) BUN 27 mg/dL H mg/dL (8-23) Creatinine 1.8 mg/dL H mg/dL (0.5-0.9) GFR Calculation Not Reportable Glucose 105 mg/dL mg/dL (65-115) Calculated Osmolal ity 281 mOsm/kg L mOs m/kg (285-295) Calcium 8.1 mg/dL L mg/dL (8.5-10.5) Troponin T Baselin e NT-Pro-B Natriuret Pep 92411 pg/mL H pg/ mL (0-450) 07/26/21 20:36 WBC RBC Hgb Hct MCV MCH MCHC RDW Plt Count MPV Neut % (Auto) Lymph % (Auto) [place] % (Auto) Eos % (Auto) Baso % (Auto) Neut # (Auto) Lymph # (Auto) [place] # (Auto) Eos # (Auto) Baso # (Auto) Nucleated RBC % (a uto) Nucleated RBCs # Specimen Type Sample Site ABG pH ABG pCO2 ABG pO2 ABG HCO3 ABG Base Excess Jaren Test Hematocrit O2 Delivery Device O2 Liters/Min Electronics Repair Technician ID Sodium Potassium Chloride Carbon Dioxide Anion Gap BUN Creatinine GFR Calculation Glucose Calculated Osmolal ity Calcium Troponin T Baselin e 52 ng/L H ng/L (0-10) NT-Pro-B Natriuret Pep Imaging Data^: Other Imaging: Radiologist's impression: [employer] [id number] ReportSigned Patient: Elizabeth Lima #: [id number]: 1945cct#:[id number]/Sex: 76 / FADM Date: 07/26/21Loc: ERRoom/Bed:Attending Dr: Ordering Provider/Ordering MD: Maegan Marte MD Date of Service: 07/26/21 Procedure(s): XR chest 1V portable [id number] Accession Number(s): [id number] Report Number: [id number] PROCEDURE INFORMATION: Exam: XR Chest Exam date and time: 07/26/2021 7:28 PM Age: 76 years old Clinical indication: Shortness of breath; Additional info: Dyspnea TECHNIQUE: Imaging protocol: XR of the chest. Views: 1 view. COMPARISON: CR (CHEST, ) 07/15/2021 2:25 AM FINDINGS: Lungs: Bibasilar atelectasis. Pleural spaces: Bilateral small volume pleural effusions. No pneumothorax. Heart/Mediastinum: Stable cardiomegaly. Bones/joints: Visualized osseous structures are intact. XR/XR chest 1V portable [id number] IMPRESSION: Cardiomegaly with bilateral small volume bilateral pleural effusions and bibasilar atelectasis. Dictated By:Bello Tucker DOSigned By:Bello Tucker DOSigned Date/Time:07/26/212145DD/ 27 Discharge Plan Discharge Patient Disposition: Admitted As Inpatient Clinical Impression: Generalized weakness, Dyspnea, Pleural effusion, CHF exacerbation Condition: Stable Coding Level of Care Code ED Platform Consultant for Chg Mercedes
[2021-07-26 21:23] LABS: Troponin(5th) Baseline 52 ng/L (0-10)
--- NOTE | 2021-07-26 21:28 | ECG_ITS ---
[facility] Test Date: 2021-07-26 Pat Name: Elizabeth Lima Department: Room: Gender: Female Technology Recruiter: : 1945 Requested By: Maegan Marte Order Number: [id number] Jose Cruz MD: Kristy Faye M.D. Measurements Intervals [place] Rate: 62 P: 17 MT: 175 QRS: -50 QRSD: 105 T: -51 QT: 436 QTc: 445 Interpretive Statements SINUS RHYTHM MODERATE VOLTAGE CRITERIA FOR LVH, CONSIDER NORMAL VARIANT [MEETS CRITERIA IN ONE OF: R(aVL), S(V1), R(V5), R(V5/V6)+S(V1)] POSSIBLE ANTERIOR MYOCARDIAL INFARCTION , OF INDETERMINATE AGE [30 ms Q WAVE IN V3/V4, OR R < 0.2 mV IN V4] INFERIOR MYOCARDIAL INFARCTION , OF INDETERMINATE AGE Compared to ECG 07/15/2021 02:36:57 Left-axis deviation no longer present ST (T wave) deviation no longer present Myocardial infarct finding still present Electronically Signed On 07-27-2021 22:18:17 GROCERY STOCK CLERK by Kristy Faey M.D. [id number]
[2021-07-26 21:30] LABS: Blood Urea Nitrogen 27 mg/dL (8-23); Calcium 8.1 mg/dL (8.5-10.5); Carbon Dioxide 23 mmol/L (22-29); Chloride 96 mmol/L (98-107); Glucose 105 mg/dL (65-115); NT Pro B Type Natriuretic Pept 31281 pg/mL (0-450); Osmolality Calculated 281 mOsm/kg (285-295); Sodium 133 mmol/L (136-145)
[2021-07-26] MEDS: FUROsemide 10 mg/mL SDV 10mL 60 MG IVP (22:00)
[2021-07-26 22:33] LABS: Adenovirus Not Detected (NOT DETECT); Chlamydia Pneumoniae Not Detected (NOT DETECT); Coronavirus 229E,HKU1,NL63,OC4 Not Detected (NOT DETECT); Human Metapneumovirus Not Detected (NOT DETECT); Human Rhinovirus/Enterovirus Not Detected (NOT DETECT); Influenza A Not Detected (NOT DETECT); Influenza A H1 Not Detected (NOT DETECT); Influenza A H1-2009 Not Detected (NOT DETECT); Influenza A H3 Not Detected (NOT DETECT); Influenza B Not Detected (NOT DETECT); Mycoplasma Pneumoniae Not Detected (NOT DETECT); Parainfluenza Virus Type 1 Not Detected (NOT DETECT); Parainfluenza Virus Type 2 Not Detected (NOT DETECT); Parainfluenza Virus Type 3 Not Detected (NOT DETECT); Parainfluenza Virus Type 4 Not Detected (NOT DETECT); Respiratory Syncytial Virus A Not Detected (NOT DETECT); Respiratory Syncytial Virus B Not Detected (NOT DETECT); SARS-COV-2 Not Detected (NOT DETECT)
[2021-07-26 22:58] LABS: Troponin 5 2HR 47.63 ng/L (0-10)
[2021-07-26 23:01] LABS: Troponin 5 2HR Delta -4.37 ABS# (0-10)
--- NOTE | 2021-07-26 23:49 | PM.HP ---
Providers/Chief Complaint Admitting Physician: Dinesh Swartz Primary Care Provider: Jorge A Grayson Chief Complaint: chf History of Present Illness 75-year-old female with a past medical history significant for hypertension, hyperlipidemia, diabetes mellitus, chronic stage 3 kidney disease with baseline creatinine of 1.8, moderate aortic stenosis(azam 1.1cm2), peripheral vascular disease, GI bleed req multiple transfusion s/p EGD showing gastritis/duodenitis, chronic non-healing right calcaneal wound, chronic diastolic heart failure, bilateral pleural effusion s/p thoracentesis on 09/2020, chronic respiratory failure on 3L of o2 via NC who is presenting to Er with shortness of breath. Patient has been admitted multiple times for similar complaint. Noted increasing bilateral LE edema since lasix was discontinued 1 week prior. Associated with generalized weakness. No fever, chills, nausea or vomiting. No chest pain. Was noted to be hypoxic with oxygen saturation in 70s. Pertinent labs on arrival included creatinine of 1.9. Chest x-ray showed cardiomegaly with bilateral small volume bilateral pleural effusions and bibasilar atelectasis. In ER patient was given lasix 60 mg IV x 1. Review of Systems General: Reports: 10 or more systems reviewed and unremarkable except in HPI and below Medications/Allergies Home Medications Medication Instructions Recorded Confirmed Last Taken Type gabapentin 200 mg PO BID@,07/23/20 07/05/21 07/02/21 12:00 History hydralazine 50 mg PO TID@08,12,18 09/23/20 07/05/21 07/02/21 21:00 History ferrous sulfate 325 mg PO DAILY@0800 10/19/20 07/05/21 10/19/20 History multivitamin 1 tab PO DAILY@0800 10/19/20 07/05/21 07/02/21 08:00 History pantoprazole [Protonix] 40 mg PO DAILY@0500 10/19/20 07/05/21 07/02/21 05:00 History polyethylene glycol 3350 [Miralax] 17 g PO DAILY PRN 10/19/20 07/05/21 07/02/21 History amlodipine 10 mg PO DAILY 07/03/21 07/05/21 07/02/21 08:00 History atorvastatin 40 mg PO QPM 07/03/21 07/05/21 07/02/21 21:00 History potassium chloride 10 meq PO DAILY #30 cap 07/05/21 07/05/21 Unknown Rx furosemide [Lasix] 40 mg PO DAILY #30 tab 07/15/21 Unknown Rx Allergies Allergy/AdvReac Type Severity Reaction Status Date / Time diclofenac [From Voltaren] Allergy Intermediate Wound Verified 07/26/21 19:47 metformin Allergy ADR-Diarrhe Verified 07/26/21 19:47 a mold Allergy Unknown Verified 07/26/21 19:47 FLU SHOT Allergy Unknown Uncoded 07/26/21 19:47 PFSH Acute PFSH: Medical History (Updated 07/26/21 @ 21:17 by Maegan Marte MD) Acute hypokalemia Anemia Aortic stenosis [facility] CKD (chronic kidney disease) stage 3, GFR 30-59 ml/min Compression fracture of L2 (~09/2020) from mechanical fall Congestive heart failure EF 25 % 06/2021, combined systolic and diastolic Critical lower limb ischemia Diabetes mellitus type II Diabetic ulcer of heel Essential hypertension Fracture of lumbar spine (~09/2020) L2, from mechanical fall GI bleed (~07/2020) upper during hospitalization, while on prophylactic anticoagulation, required transfusion of 7 units of blood History of cardiovascular stress test (~08/2020) moderate area of persistent decreased uptake in the mid and apical anterior, mid inferolateral and apical segments with no significant reversibility however did have elevated TID ratio at 1.4 suggesting possible endocardial ischemia; managed medically due to CKD History of mechanical ventilation for respiratory failure from hypertensive emergency and flash pulmonary edema 07/2020; for CHF and pneumonia 08/2020 Hyperlipidemia Hyponatremia Nonhealing ulcer of heel follows with [facility] NSTEMI (non-ST elevated myocardial infarction) suspected type II process in 07/2020 and 08/2020, has not had cath due to CKD. On home oxygen therapy Peripheral arterial disease Surgical History History of cardiac cath (~06/2021) occluded left main, 60% LAD lesions per outside records History of esophagogastroduodenoscopy (EGD) (08/01/20) gastritis, duodenitis with some linear erosions in the stomach after NGT History of thoracentesis bilateral 08/2020, transudative right 09/2020 History of transcatheter aortic valve replacement (TAVR) (06/21/21) Surgical history unknown Hysterectomy documented previously, but patient still appears to have her uterus on her CAT scan Family History Other Cancer Rheumatoid arthritis Social History Smoking and tobacco status: never smoked Second hand smoke exposure: No Alcohol intake: never Lives independently: No Housing: Skilled Nursing Marital status: / Current occupational status: retired History of recent travel: No Current gender identity: Female Female Reproductive History: Para: 2 Vitals/I&O/Wt Last Vital Signs Temp 97.9 F 07/27/21 03:45 Pulse 61 07/27/21 03:45 Resp 18 07/27/21 03:45 BP 153/50 07/27/21 03:45 Pulse Ox 94 07/27/21 03:45 Weight last 48 hrs Weight 59.562 kg Weight 58.513 kg Physical Exam Narrative: EXAM NARRATIVE: General : Alert awake on o2 via NC HEENT : Grossly unremarkable CVS : RRR Chest : Decrease in b/l bases ABD; Soft NT,ND Ext. B/L LE edema Data : 07/27/21 02:16 07/27/21 02:16 A&P Assessment and plan (1) Pleural effusion: Status: Acute (2) Generalized weakness: Status: Acute (3) Congestive heart failure: Status: Acute Qualifiers: Heart failure chronicity: acute on chronic Heart failure type: diastolic Qualified Code(s): I50.33 - Acute on chronic diastolic (congestive) heart failure (4) CKD (chronic kidney disease) stage 3, GFR 30-59 ml/min: Status: Acute Qualifiers: Chronic kidney disease stage 3 subtype: stage 3b (GFR 30-44) Qualified Code(s): N18.32 - Chronic kidney disease, stage 3b (5) Aortic stenosis: Status: Chronic Qualifiers: Cardiac valve disease etiology: etiology unspecified Qualified Code(s): I35.0 - Nonrheumatic aortic (valve) stenosis Additional A&P Information Acute on chronic diastolic heart failure exacerbation / Moderate b/L pleural effusion ProBNP 37907 S/p Lasix 60 mg IV x 1 in ER Will continue 40 mg IV BID Monitor BMP / daily weight / strict I&O Chronic stage 3 kidney disease Baseline around 1.9 Currently 1.8 Monitor daily bmp given diuretics Renal dosing of meds Elevated troponin Trend not consistent with ACS Chest pain free DVT ppx SCDs only ( hx of Gi bleed) Additional Medical Problems Coronary artery disease - verify if recent Cath Moderate Aortic stenosis Hypertension Hyperlipidemia Obstructive sleep apnea Diabetes mellitus Hx of GI bleed GERD Attestations Medical Necessity Statement*: Will require over 2 midnight stay in hospital for eval and treatment Time Spent in Patient Care: Greater than 35 minutes (>than 50% of time spent in counselling and/or direct pt care on unit). Coding Level of Care Code Acute Bending Roll Hand for Janice Long Diagnoses Pleural effusion J90 Generalized weakness R53.1 Congestive heart failure I50.33 Heart failure chronicity: acute on chronic Heart failure type: diastolic CKD (chronic kidney disease) stage 3, GFR 30-59 ml/min N18.32 Chronic kidney disease stage 3 subtype: stage 3b (GFR 30-44) Aortic stenosis I35.0 Cardiac valve disease etiology: etiology unspecified
[2021-07-27] VITALS (11 sets, daily range): BP systolic 127–160; BP diastolic 44–66; PULSE 61–79; RESP 16–24; TEMP 36.6–36.8; O2SAT 90–97; BMI 27.4
--- NOTE | 2021-07-27 01:28 | ECG_ITS ---
[facility] Test Date: 2021-07-27 Pat Name: Elizabeth Lima Department: Room: 278 Gender: Female It Associate: : 1945 Requested By: Maegan Marte Order Number: [id number] Jose Cruz MD: Kristy Faye M.D. Measurements Intervals [place] Rate: 61 P: 9 FL: 167 QRS: -30 QRSD: 107 T: 55 QT: 423 QTc: 427 Interpretive Statements SINUS RHYTHM VOLTAGE CRITERIA FOR LVH [MEETS CRITERIA IN ONE OF: R(aVL), S(V1), R(V5), R(V5/V6)+S(V1)] POSSIBLE ANTERIOR MYOCARDIAL INFARCTION , OF INDETERMINATE AGE [30 ms Q WAVE IN V3/V4, OR R < 0.2 mV IN V4] Compared to ECG 07/26/2021 22:15:24 No significant changes Electronically Signed On 07-27-2021 17:57:06 TURN LASTER by Kristy Faye M.D. [id number]
[2021-07-27 02:54] LABS: Basophils # 0.1 10^3/uL (0.0-0.1); Basophils % 1.3 %; Eosinophils # 0.5 10^3/uL (0.0-0.8); Eosinophils % 6.6 %; Hematocrit 24.7 % (37.0-47.0); Lymphocytes % 12.4 %; Mean Corpuscular HGB Conc 32.4 g/dL (30.0-36.0); Mean Corpuscular Hemoglobin 28.8 pg (28.0-34.0); Mean Corpuscular Volume 88.8 fl (81-99); Mean Platelet Volume 10.1 fL (7.4-10.4); Monocytes # 0.7 10^3/uL (0.2-0.9); Monocytes % 8.6 %; Neutrophils % 70.7 %; Nucleated Red Blood Cells % 0 %; Platelet Count 246 10^3/cmm (130-400); Red Blood Count 2.78 10^6/uL (4.1-5.3); Red Cell Distribution Width 15.3 % (12.1-15.1); White Blood Count 7.9 10^3/uL (4.0-10.0)
[2021-07-27 03:15] LABS: Troponin 5 6HR 49.03 ng/L (0-10); Troponin 5 6HR Delta -2.97 ng/L (0-12)
[2021-07-27 03:46] LABS: Alanine Aminotransferase 7 U/L (0-33); Alkaline Phosphatase 81 IU/L (35-105); Anion Gap 18.9 (5-19); Aspartate Amino Transferase 15 U/L (0-32); Blood Urea Nitrogen 27 mg/dL (8-23); Calcium 7.8 mg/dL (8.5-10.5); Carbon Dioxide 21 mmol/L (22-29); Chloride 99 mmol/L (98-107); Globulin 3.1 g/dL (1.3-4.6); Glucose 99 mg/dL (65-115); Osmolality Calculated 285 mOsm/kg (285-295); Potassium 3.9 mmol/L (3.5-5.1); Sodium 135 mmol/L (136-145); Total Bilirubin 0.4 mg/dL (0.15-1.2); Total Protein 6.1 g/dL (6.6-8.7)
[2021-07-27] MEDS: heparin 5,000 unit/mL INJ 1 mL 5000 UNIT SUBCUT (04:27)
[2021-07-27] MEDS: amlodipine 10 mg Tablet PO (08:34)
[2021-07-27] MEDS: hyDRALAzine 50 mg Tablet PO ×3 (08:34→22:13)
[2021-07-27] MEDS: gabapentin 100 mg Capsule PO ×2 (08:34→17:40)
--- NOTE | 2021-07-27 08:47 | PC.PHAR ---
pt states her son hang [phone] helps her with her medications since she left [facility]-pts son hang states he is only giving the pt the medications entered-pts son sent in med list and states that is what he has been giving her-mo from [facility] states they sent the pt home with lasix 20mg daily,kcl 10meq po daily, norvasc 10mg daily,lipitor 40mg daily,iron 325mg daily,gabapentin 200mg bid,hydralazine 50mgtid,multivitamin daily,protonix 40mg daily,miralax 17g daily prn,colace 100mg daily, senna s 2 tabs hs,and zofran 4mg q6h prn pts son states he is NOT giving her all the meds she was sent home with states the in [place] that did her heart valve replacement told her to only take the meds he had told her to take-
[2021-07-27] MEDS: FUROsemide 10 mg/mL SDV 4mL 40 MG IVP ×2 (11:33→21:10)
[2021-07-27] MEDS: ondansetron 2 mg/ML SDV 2 mL 4 MG IVP (11:37)
--- NOTE | 2021-07-27 11:43 | PC.NURSE ---
patient has very dark stool and smells like blood in it. Per Dr Arreaga, send stool sample to lab. ad writer sent stool sample.
--- NOTE | 2021-07-27 12:03 | PC.NURSE ---
rcvd telephone order for bipap for 1 hour for shortness of breath.
--- NOTE | 2021-07-27 14:47 | PM.PN ---
Subjective Subjective: Interval history: She is very hard of hearing, kept repeating about her shortness of breath however she was not using any respiratory sensory muscles and was saturating well on 3 L nasal cannula I raised her head and Currently she is on IV diuretics Albumin 3 We will check FOBT, there is a gradual decline in her hemoglobin Considering valvular heart disease her target hemoglobin should be above 8 Of note, she was discharged on Lasix 40 mg daily I did not get a clue of holding Lasix, Dr. Winters's note did not mention stopping Lasix as well Vitals/I&O/Wt Last Vital Signs Temp 98.0 F 07/27/21 11:54 Pulse 69 07/27/21 12:32 Resp 24 H 07/27/21 11:54 BP 149/58 07/27/21 11:54 Pulse Ox 94 07/27/21 12:32 Weight last 48 hrs Weight 59.562 kg Weight 58.513 kg Physical Exam Narrative: EXAM NARRATIVE: Clinically fluid overloaded Third spacing Semi-Nielsen position saturating well on 3 L nasal cannula No active use of respiratory accessory muscles Rhonchi and crackles at the bases Variable S1-S2 with murmur grade 2/6 EOMI, PERRLA Oriented to herself Hard of hearing Nonfocal neuro exam Bilateral lower extremity edema Data : 07/27/21 02:16 07/27/21 02:16 A&P Assessment and plan (1) Generalized weakness: Status: Acute (2) Dyspnea: Status: Acute (3) Pleural effusion: Status: Acute (4) CHF exacerbation: Status: Acute (5) Frailty: Status: Acute (6) Diabetic ulcer of heel: Status: Acute (7) Congestive heart failure: Status: Acute Qualifiers: Heart failure chronicity: acute on chronic Heart failure type: diastolic Qualified Code(s): I50.33 - Acute on chronic diastolic (congestive) heart failure (8) Anemia: Status: Acute (9) CKD (chronic kidney disease) stage 3, GFR 30-59 ml/min: Status: Acute Qualifiers: Chronic kidney disease stage 3 subtype: stage 3b (GFR 30-44) Qualified Code(s): N18.32 - Chronic kidney disease, stage 3b (10) Diabetes mellitus: Status: Acute Qualifiers: Diabetes mellitus type: type 2 Diabetes mellitus buttermaker helper insulin use: without buttermaker helper use Diabetes mellitus complication status: with kidney complications Diabetes mellitus complication detail: with chronic kidney disease Chronic kidney disease stage: stage 3 (moderate) Chronic kidney disease stage 3 subtype: stage 3b (GFR 30-44) Qualified Code(s): E11.21 - Type 2 diabetes mellitus with diabetic nephropathy; N18.32 - Chronic kidney disease, stage 3b (11) Aortic stenosis: Status: Chronic Qualifiers: Cardiac valve disease etiology: etiology unspecified Qualified Code(s): I35.0 - Nonrheumatic aortic (valve) stenosis Additional A&P Information Acute diastolic CHF exacerbation This seems to be a gradual decline in her underlying cardiomyopathy No active chest pain History of valvular replacement Continue IV Lasix Currently on 3 L nasal cannula Bilateral pleural effusion, I would not recommend thoracentesis at this point, monitor for now Troponin trending down Acute on chronic anemia Check FOBT Her goal hemoglobin is at least 8 considering her valvular heart disease Chronic kidney disease creatinine seems around baseline SCDs for DVT prophylaxis Cardiac consistent carb diet sliding scale Continue PPI for GERD Attestations Medical Necessity Statement*: Continue IV diuretics Time Spent in Patient Care: 16 - 35 minutes Coding Level of Care Code Acute Associate Director Of Nursing for Chg Fwd Diagnoses Generalized weakness R53.1 Dyspnea R06.00 Pleural effusion J90 CHF exacerbation I50.9 Frailty R54 Diabetic ulcer of heel E11.621; L97.409 Congestive heart failure I50.33 Heart failure chronicity: acute on chronic Heart failure type: diastolic Anemia D64.9 CKD (chronic kidney disease) stage 3, GFR 30-59 ml/min N18.32 Chronic kidney disease stage 3 subtype: stage 3b (GFR 30-44) Diabetes mellitus E11.21; N18.32 Diabetes mellitus type: type 2 Diabetes mellitus assisted insulin use: without assisted use Diabetes mellitus complication status: with kidney complications Diabetes mellitus complication detail: with chronic kidney disease Chronic kidney disease stage: stage 3 (moderate) Chronic kidney disease stage 3 subtype: stage 3b (GFR 30-44) Aortic stenosis I35.0 Cardiac valve disease etiology: etiology unspecified
--- NOTE | 2021-07-27 15:08 | USCV_ITS ---
Elizabeth Lima Age: 76 Gender: F : 1945 Exam Date: 07/27/2021 15:32 Ordering Phys: Jin Arreaga MD Technologist: Julio César Mendenhall Exam Location: [facility] – [place] Indication: CHF EX BP: / HR: 72 Rhythm: Sinus Technical Quality: Technically difficult study MEASUREMENTS (Male / Female) Normal Values 2D ECHO LV Diastolic Diameter PLAX 3.5 cm 4.2 - 5.9 / 3.9 - 5.3 cm LV Systolic Diameter PLAX 2.2 cm IVS Diastolic Thickness 1.1 cm 0.6 - 1.0 / 0.6 - 0.9 cm IVS Systolic Thickness 1.3 cm LVPW Diastolic Thickness 1.9 cm 0.6 - 1.0 / 0.6 - 0.9 cm LVPW Systolic Thickness 1.9 cm LVOT Diameter 1.6 cm LV Ejection Fraction 2D Teich 66.7 % LV Ejection Fraction MOD 2C 50.5 % LV Ejection Fraction 2C AL 50.7 % LA Diameter 3.5 cm LA Width 3.4 cm LA Height 5.5 cm RA Width 3.7 cm RA Height 4.2 cm Aorta at Sinotubular Diameter 2.3 cm M-MODE Aortic Annulus Diameter 2.3 cm LA Ao Ratio MM 1.6 MV E Point Septal Separation 1.0 cm DOPPLER AV Peak Velocity 253.0 cm/s LVOT Peak Velocity 140.0 cm/s AV Area Cont Eq vti 1.2 cm squared AV Area Cont Eq pk 1.1 cm squared MV Area PHT 2.7 cm squared Mitral E to A Ratio 1.1 MV E' Velocity 167.0 cm/s TR Peak Velocity 461.9 cm/s TR Peak Gradient 85.3 mmHg TR Mean Velocity 332.7 cm/s TR Mean Gradient 50.5 mmHg TR Velocity Time Integral 142.8 cm Right Atrial Pressure 3.0 mmHg Pulmonary Artery Systolic Pressu 88.3 mmHg RV Acceleration Time 0.1 s RV Ejection Time 0.4 s RV AcT/ET 0.3 FINDINGS Left Ventricle Normal left ventricular size. LV systolic function is borderline normal with EF of 50%. Mild hypokinesis of the apical, apical inferior and apical septal katz. Mild concentric left ventricular hypertrophy. Grade 2 diastolic dysfunction Right Ventricle The right ventricle is normal in size and function. Right Atrium The right atrium is normal in size. Left Atrium The left atrium is enlarged Mitral Valve Moderate mitral annular calcification is seen. Mild mitral stenosis is seen with mean gradient across the mitral valve of 5mmHg. There is trace mitral regurgitation. Aortic Valve Aortic valve is not well visualized but grossly is thickened. Mild to moderate aortic valve stenosis is noted with JOSE of 1.2cm2 and mean gradient across the aortic valve of 14mmHg. There is trace aortic regurgitation. Tricuspid Valve Structurally normal tricuspid valve without significant stenosis . Mild tricuspid regurgitation. Insufficient TR jet to calculate RVSP. Pulmonic Valve Not well visualized. There is trace pulmonic regurgitation. Pericardium Normal pericardium without effusion. Aorta Normal ascending aorta dimension. CONCLUSIONS LV systolic function is borderline normal with EF of 50%. Mild hypokinesis of apical, apical inferior and apical septal katz noted. Mild concentric left ventricular hypertrophy is seen. Grade 2 diastolic dysfunction. Moderate mitral annular calcification. Mild mitral stenosis and trace mitral regurgitation noted. Aortic valve is grossly thickened. Mild to moderate aortic valve stenosis is seen with aortic valve area of 1.2 cm squared and mean gradient across aortic valve of 14 mmHg. There is trace aortic regurgitation. Mild tricuspid regurgitation. Trace pulmonic regurgitation. Compared to prior echocardiogram from 07/26/2020, patient has mild mitral stenosis, otherwise no significant changes are noted Paul Freitas MD (Electronically Signed) Final Date: 28 July 2021 12:05 S
[2021-07-27] MEDS: atorvastatin 40 mg Tablet PO (22:13)
[2021-07-28] VITALS (14 sets, daily range): BP systolic 136–151; BP diastolic 50–65; PULSE 68–76; RESP 16–19; TEMP 36.7–37.2; O2SAT 94–96
[2021-07-28 03:47] LABS: Basophils # 0.1 10^3/uL (0.0-0.1); Basophils % 1.1 %; Eosinophils # 0.5 10^3/uL (0.0-0.8); Eosinophils % 5.9 %; Hematocrit 25.2 % (37.0-47.0); Hemoglobin 7.7 g/dL (11.5-15.3); Lymphocytes % 11.6 %; Mean Corpuscular HGB Conc 30.6 g/dL (30.0-36.0); Mean Corpuscular Volume 91.6 fl (81-99); Mean Platelet Volume 9.9 fL (7.4-10.4); Monocytes # 0.7 10^3/uL (0.2-0.9); Monocytes % 7.8 %; Neutrophils # 6.21 10^3/uL (1.8-7.7); Neutrophils % 73.2 %; Nucleated Red Blood Cells % 0 %; Platelet Count 242 10^3/cmm (130-400); Red Blood Count 2.75 10^6/uL (4.1-5.3); Red Cell Distribution Width 15.5 % (12.1-15.1); White Blood Count 8.5 10^3/uL (4.0-10.0)
[2021-07-28 04:16] LABS: Magnesium 1.5 mg/dL (1.7-2.3)
[2021-07-28 04:17] LABS: Alanine Aminotransferase 7 U/L (0-33); Albumin Level 2.9 g/dL (3.5-5.2); Alkaline Phosphatase 79 IU/L (35-105); Anion Gap 16.6 (5-19); Aspartate Amino Transferase 16 U/L (0-32); Blood Urea Nitrogen 27 mg/dL (8-23); Calcium 7.6 mg/dL (8.5-10.5); Carbon Dioxide 24 mmol/L (22-29); Chloride 97 mmol/L (98-107); Globulin 2.9 g/dL (1.3-4.6); Glucose 105 mg/dL (65-115); Osmolality Calculated 283 mOsm/kg (285-295); Potassium 3.6 mmol/L (3.5-5.1); Sodium 134 mmol/L (136-145); Total Bilirubin 0.4 mg/dL (0.15-1.2); Total Protein 5.8 g/dL (6.6-8.7)
[2021-07-28] MEDS: amlodipine 10 mg Tablet PO (08:38)
[2021-07-28] MEDS: hyDRALAzine 50 mg Tablet PO ×3 (08:38→20:43)
[2021-07-28] MEDS: gabapentin 100 mg Capsule PO ×2 (08:38→17:31)
--- NOTE | 2021-07-28 08:50 | PC.NURSE ---
Pranav at [facility] called and said they have received a referral on patient. Barrel Scraper notified CORIN Novoa.
--- NOTE | 2021-07-28 09:43 | P.PN_ITS ---
Subjective Subjective: Interval history: Patient is stating that today she is feeling slightly better in terms of her shortness of breath, however she asked me to boost her up in the bed, she still on 3 L nasal cannula Clinically fluid overloaded Hemoglobin 7.7 We will request 1 unit PRBC Protonix 40 IV twice daily N.p.o. Son stated that he is okay with EGD if needs to be repeated, patient stays full code Vitals/I&O/Wt Last Vital Signs Temp 98.3 F 07/28/21 07:20 Pulse 70 07/28/21 07:20 Resp 16 07/28/21 07:20 BP 150/65 07/28/21 07:20 Pulse Ox 94 07/28/21 07:20 07/27/21 07/28/21 07/28/21 22:59 06:59 14:59 Intake Total 360 / 360 960 / 1320 Output Total 200 / 200 870 / 1070 Balance 160 / 160 90 / 250 Weight last 48 hrs Weight 59.562 kg Weight 58.513 kg Physical Exam Narrative: EXAM NARRATIVE: Very pleasant and cooperative today Doing well on 3 L cannula Hemodynamically stable Abdomen soft Clinically fluid overloaded 2+ pitting edema of extremities Third spacing Hard of hearing EOMI, PERRLA Nonfocal neuro exam Dark stool noted by the nurse yesterday Data : 07/28/21 03:38 07/28/21 03:38 Micro: Microbiology 07/27/21 11:00 Occult Blood (FIT) - Final Stool Routine Collection A&P Assessment and plan (1) Generalized weakness: Status: Acute (2) Dyspnea: Status: Acute (3) Pleural effusion: Status: Acute (4) CHF exacerbation: Status: Acute (5) Frailty: Status: Acute (6) Aortic stenosis: Status: Chronic Qualifiers: Cardiac valve disease etiology: etiology unspecified Qualified Code(s): I35.0 - Nonrheumatic aortic (valve) stenosis (7) Acute on chronic blood loss anemia: Status: Acute Additional A&P Information Preserve ejection fraction heart failure exacerbation status post valve replacement Continue IV diuretics Clinically fluid overloaded Albumin less than 3 Third spacing noted Goal hemoglobin above 8 Acute on chronic blood loss anemia EGD done in June History of duodenitis/gastritis We will request 1 unit PRBC Hemodynamically stable N.p.o. 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 DVT prophylaxis: SCDs Guarded prognosis Attestations Medical Necessity Statement*: Continue medical management Time Spent in Patient Care: 16 - 35 minutes Coding Level of Care Code Acute Quiller Operator for Chg Fwd Diagnoses Generalized weakness R53.1 Dyspnea R06.00 Pleural effusion J90 CHF exacerbation I50.9 Frailty R54 Aortic stenosis I35.0 Cardiac valve disease etiology: etiology unspecified Acute on chronic blood loss anemia D62
[2021-07-28] MEDS: pantoprazole 40 mg SDV IVP ×2 (11:04→20:48)
[2021-07-28] MEDS: FUROsemide 10 mg/mL SDV 4mL 40 MG IVP ×2 (11:04→21:28)
[2021-07-28] MEDS: sodium chloride 0.9% (100 ml) 100 ML (14:14)
--- NOTE | 2021-07-28 15:34 | PC.NURSE ---
contract technical writer notified Dr Rai that patient's family said that if she has any procedures done, patient has to have an antibiotic because she had a valve replacement. the family just wanted to make sure you are aware.
[2021-07-28 18:29] LABS: Hematocrit 29.4 % (37.0-47.0); Hemoglobin 9.7 g/dL (11.5-15.3)
[2021-07-28] MEDS: atorvastatin 40 mg Tablet PO (20:43)
--- NOTE | 2021-07-28 23:05 | PC.NURSE ---
Right upper arm swollen. placed on pillow for elevation.
[2021-07-29] VITALS (8 sets, daily range): BP systolic 139–162; BP diastolic 48–74; PULSE 69–84; RESP 16–20; TEMP 36.7–37.1; O2SAT 90–95
--- NOTE | 2021-07-29 03:05 | PC.NURSE ---
0200 Assisted pt to BSC for feeling of BM. small x 1 noted. Pericare given. Assisted back to bed x 2 assist. Turned to right side. Refused SCD placement. Heels floated. Right arm elevated on pillow. J
--- NOTE | 2021-07-29 03:53 | PC.NURSE ---
Pt reports her legs are numb and tingling. color pink. good pedal pulses bilat. Positioned pt on side of bed per her request. Rubbed her legs as requested. Refused tylenol. DEDEJ
[2021-07-29 05:22] LABS: Basophils # 0.1 10^3/uL (0.0-0.1); Basophils % 0.9 %; Eosinophils # 0.4 10^3/uL (0.0-0.8); Eosinophils % 3.7 %; Hematocrit 30.3 % (37.0-47.0); Hemoglobin 9.8 g/dL (11.5-15.3); Lymphocytes # 0.8 10^3/uL (0.8-4.8); Lymphocytes % 8.3 %; Mean Corpuscular HGB Conc 32.3 g/dL (30.0-36.0); Mean Corpuscular Hemoglobin 28.8 pg (28.0-34.0); Mean Corpuscular Volume 89.1 fl (81-99); Monocytes # 0.6 10^3/uL (0.2-0.9); Monocytes % 6.5 %; Neutrophils # 7.72 10^3/uL (1.8-7.7); Neutrophils % 80.3 %; Nucleated Red Blood Cells % 0 %; Platelet Count 230 10^3/cmm (130-400); Red Cell Distribution Width 14.8 % (12.1-15.1); White Blood Count 9.6 10^3/uL (4.0-10.0)
[2021-07-29 05:53] LABS: Anion Gap 18.5 (5-19); Blood Urea Nitrogen 22 mg/dL (8-23); Carbon Dioxide 24 mmol/L (22-29); Chloride 96 mmol/L (98-107); Glucose 88 mg/dL (65-115); Osmolality Calculated 283 mOsm/kg (285-295); Potassium 3.5 mmol/L (3.5-5.1); Sodium 135 mmol/L (136-145)
--- NOTE | 2021-07-29 09:33 | PM.PN ---
Subjective Subjective: Interval history: Patient was sitting in her chair, stating that she feels full in her stomach, she was kept n.p.o. however diet was advanced this morning, hemoglobin stable at 9.8 today status post 1 unit Creatinine has improved Vitals/I&O/Wt Last Vital Signs Temp 98.4 F 07/29/21 07:45 Pulse 69 07/29/21 08:11 Resp 20 H 07/29/21 08:11 BP 162/74 07/29/21 07:45 Pulse Ox 92 07/29/21 08:11 07/28/21 07/29/21 07/29/21 22:59 06:59 14:59 Intake Total 810 / 930 Output Total 250 / 575 Balance 560 / 355 Physical Exam Narrative: EXAM NARRATIVE: Sitting in a chair Very hard of hearing S1, S2 Fluid overloaded, 2+ pitting edema of the extremities EOMI, PERRLA Nonfocal neuro exam Bilateral breath sounds with crackles at the base with rhonchi Currently saturating well on 2 L nasal cannula Distended abdomen with obesity, Urinary Catheter Management^: [place]: Cath Placed During This Visit: yes Reason for Continuing Indwelling Catheter: Accurate Measurement of Urinary Output in Critically Ill Patients Urinary Catheter Date of Insertion: 07/28/21 Urinary Catheter Time of Insertion: 10:39 Data : 07/29/21 04:49 07/29/21 04:49 Micro: Microbiology 07/27/21 11:00 Enteric Pathogens (PCR) - Final Stool Routine Collection Occult Blood (FIT) - Final A&P Assessment and plan (1) Acute on chronic blood loss anemia: Status: Acute (2) Generalized weakness: Status: Acute (3) Dyspnea: Status: Acute (4) Pleural effusion: Status: Acute (5) CHF exacerbation: Status: Acute (6) CKD (chronic kidney disease) stage 3, GFR 30-59 ml/min: Status: Acute Qualifiers: Chronic kidney disease stage 3 subtype: stage 3b (GFR 30-44) Qualified Code(s): N18.32 - Chronic kidney disease, stage 3b Additional A&P Information Acute on chronic blood loss anemia secondary to upper GI bleed recent EGD showed gastritis duodenitis status post 1 unit PRBC, hemoglobin stable at 9.7 today Hemodynamically stable She is not tachycardic Acute on chronic kidney disease secondary to cardiorenal: CHF exacerbation: Improved with diuresis Second improvement seen when she received blood yesterday Creatinine better than her baseline Acute CHF exacerbation 50% EF with diastolic component Moderate aortic stenosis Bilateral pleural effusion Judicious use of diuretics I will cut back on her diuretics changed to p.o. regimen We will check albumin 1 more time tomorrow if less than 3 can give her [address] Winters's note he recommended conservative management Full code Cardiac consistent carb diet DVT prophylaxis contraindicated Attestations Medical Necessity Statement*: Anticipating discharge in 48 hours Time Spent in Patient Care: less than 15 minutes Coding Level of Care Code Acute Information Technology Consultant for Chg Fwd Diagnoses Acute on chronic blood loss anemia D62 Generalized weakness R53.1 Dyspnea R06.00 Pleural effusion J90 CHF exacerbation I50.9 CKD (chronic kidney disease) stage 3, GFR 30-59 ml/min N18.32 Chronic kidney disease stage 3 subtype: stage 3b (GFR 30-44)
[2021-07-29] MEDS: gabapentin 100 mg Capsule PO (10:54)
[2021-07-29] MEDS: amlodipine 10 mg Tablet PO (10:54)
[2021-07-29] MEDS: hyDRALAzine 50 mg Tablet PO ×2 (10:54→15:44)
[2021-07-29] MEDS: pantoprazole 40 mg SDV IVP (11:07)
[2021-07-29] MEDS: ondansetron 2 mg/ML SDV 2 mL 4 MG IVP (11:11)
--- NOTE | 2021-07-29 11:30 | P.DS_ITS ---
Discharge Providers Date of Admission: 07/26/21 21:58 Date of Discharge: July 29, 2021 Attending Provider at Admission: Dinesh Swartz Attending Provider at Discharge: Jin Arreaga MD Primary Care Provider: Jorge A Grayson Diagnoses at Discharge Discharge Diagnosis (1) Acute on chronic blood loss anemia: Status: Acute (2) Generalized weakness: Status: Acute (3) Dyspnea: Status: Acute (4) Pleural effusion: Status: Acute (5) CHF exacerbation: Status: Acute (6) CKD (chronic kidney disease) stage 3, GFR 30-59 ml/min: Status: Acute Qualifiers: Chronic kidney disease stage 3 subtype: stage 3b (GFR 30-44) Qualified Code(s): N18.32 - Chronic kidney disease, stage 3b Reason for Visit Reason for Visit: chf Hospital Course Hospital Course Pt was admitted for management of acute CHF exacerbation, echo was done during hospitalization which showed preserved ejection fraction, aortic valve moderate stenosis, she was diuresed aggressively with IV regimen, her GERARD improved, gradual decline in hemoglobin noted, FOBT positive, she required 1 unit PRBC. Hemodynamically remained stable. Dr. Winters's note was reviewed, he did mention to him about Lasix however nursing staff did confirm with the [facility] that it was discontinued a week ago and patient was discharged. She was recommended palliative care. On 07/29 she will go home with palliative care. I have spoken with her son who is unable to afford fdc/palliative. He is agreeable for home/palliative care plan for now. Her CODE STATUS has been changed to DNR/DNI. Secondary to combined congestive heart failure she will need diuretics on daily basis. Physical Exam Narrative: EXAM NARRATIVE: Sitting in a chair Very hard of hearing S1, S2 Fluid overloaded, 2+ pitting edema of the extremities EOMI, PERRLA Nonfocal neuro exam Bilateral breath sounds with crackles at the base with rhonchi Currently saturating well on 2 L nasal cannula Distended abdomen with obesity, Urinary Catheter Management^: [place]: Cath Placed During This Visit: yes Reason for Continuing Indwelling Catheter: Accurate Measurement of Urinary Output in Critically Ill Patients Urinary Catheter Date of Insertion: 07/28/21 Urinary Catheter Time of Insertion: 10:39 Discharge Data Data Completed and Pending: Completed Studies During Hospitalization Category Date Time Status XR chest 1V aung ble [id number] Urgent Exams 07/26/21 19:28 Completed CV. echo complete * [id number] Routine Ultrasound 07/27/21 15:08 Completed Pending at discharge Category Date Time Status Basic Metabolic P kishor AM LABS Lab 07/30/21 04:00 Ordered Complete Blood Co unt w/Auto AM LABS Lab 07/30/21 04:00 Ordered Labs from last 24 hours 07/29/21 07/29/21 07/28/21 04:49 04:49 18:23 WBC 9.6 RBC 3.40 L Hgb 9.8 L 9.7 L Hct 30.3 L 29.4 L MCV 89.1 MCH 28.8 MCHC 32.3 D RDW 14.8 Plt Count 230 MPV 10.0 Neut % (Auto) 80.3 Lymph % (Auto) 8.3 [place] % (Auto) 6.5 Eos % (Auto) 3.7 Baso % (Auto) 0.9 Neut # (Auto) 7.72 H Lymph # (Auto) 0.8 [place] # (Auto) 0.6 Eos # (Auto) 0.4 Baso # (Auto) 0.1 Nucleated RBC % (a uto) 0 Nucleated RBCs # 0.0 Sodium 135 L Potassium 3.5 Chloride 96 L Carbon Dioxide 24 Anion Gap 18.5 BUN 22 Creatinine 1.6 H GFR Calculation Not Reportable Glucose 88 Calculated Osmolal ity 283 L Calcium 8.0 L Blood Type Rho(D) Type Antibody Screen Crossmatch 07/28/21 10:34 WBC RBC Hgb Hct MCV MCH MCHC RDW Plt Count MPV Neut % (Auto) Lymph % (Auto) [place] % (Auto) Eos % (Auto) Baso % (Auto) Neut # (Auto) Lymph # (Auto) [place] # (Auto) Eos # (Auto) Baso # (Auto) Nucleated RBC % (a uto) Nucleated RBCs # Sodium Potassium Chloride Carbon Dioxide Anion Gap BUN Creatinine GFR Calculation Glucose Calculated Osmolal ity Calcium Blood Type A Negative Rho(D) Type Negative Antibody Screen Negative Crossmatch See Detail Vitals: Last Vital Signs Temp 98.4 F 07/29/21 07:45 Pulse 69 07/29/21 08:11 Resp 20 H 07/29/21 08:11 BP 162/74 07/29/21 07:45 Pulse Ox 92 07/29/21 08:11 Discharge Plan Discharge Patient Disposition: Hospice - Home Condition: Stable Prescriptions: New furosemide [Lasix] 40 mg tablet 40 mg PO DAILY Qty: 90 RF: 1 potassium chloride 10 mEq capsule, extended release 10 meq PO DAILY Qty: 30 RF: 2 Continued hydralazine 50 mg tablet 50 mg PO TID RF: 0 atorvastatin 40 mg Tablet 40 mg PO BEDTIME RF: 0 amlodipine 10 mg Tablet 10 mg PO QAM RF: 0 metoprolol succinate 50 mg tablet extended release 24 hr 50 mg PO DAILY RF: 0 ondansetron HCl 4 mg tablet 4 mg PO TID PRN (Reason: Nausea And Vomiting) RF: 0 sodium bicarbonate 650 mg Tablet 650 mg PO QAM RF: 0 gabapentin 100 mg capsule 200 mg PO BID RF: 0 ferrous sulfate 325 mg (65 mg iron) Tablet 325 mg PO TID RF: 0 polyethylene glycol 3350 [Miralax] 17 gram/dose Powder 17 g PO DAILY PRN (Reason: Constipation) RF: 0 pantoprazole [Protonix] 40 mg tablet,delayed release (DR/EC) 40 mg PO BEDTIME RF: 0 Discontinued aspirin [Aspir-81] 81 mg Tablet,Delayed Release (Dr/Ec) 81 mg PO QAM RF: 0 Discharge Orders: Discharge Order (Routine); Ordered 07/29/21 Ordered By: Jin Arreaga Referrals: [facility] [Outside] Jorge A Grayson MD [Primary Care Provider] - (please call for appointment as needed) Discharge Diet: Cardiac Discharge Activity: Increase activity as tolerated and Use walker/crutches as instructed Patient Instructions: Opioid Safety Discharge Attestations Time Spent in Discharge Care*: less than 30 min Status at Discharge: Cognitive status at discharge: cognitively intact , Behavioral status at discharge: cooperative , Quality Metrics Clinical Quality Measures During this hospital stay, did patient experience: None Coding Level of Care Code Acute Chg FW DC note Diagnoses Acute on chronic blood loss anemia D62 Generalized weakness R53.1 Dyspnea R06.00 Pleural effusion J90 CHF exacerbation I50.9 CKD (chronic kidney disease) stage 3, GFR 30-59 ml/min N18.32 Chronic kidney disease stage 3 subtype: stage 3b (GFR 30-44)
--- NOTE | 2021-07-29 13:48 | PC.SOCIAL ---
IMM Update pg 2 fo IMM updated and reviewed w/ patients kevin Ferreira. Copy provided.
[2021-07-29] MEDS: ferrous sulfate EC 325 mg Tablet PO (15:44)
== END 2021-07-29 17:00 | disposition hospice, home (50) ==
LOC: ER 21:17 → MEDSURG 23:29
PROVIDERS: Admitting Provider Hospitalist; Emergency Provider Emergency Medicine; PCP Family Medicine; Visit Provider Internal Medicine
DX: J90 Pleural effusion, not elsewhere classified (principal); E11.621 Type 2 diabetes mellitus with foot ulcer; R54 Age-related physical debility; D62 Acute posthemorrhagic anemia; E11.21 Type 2 diabetes mellitus with diabetic nephropathy; D64.9 Anemia, unspecified; L97.409 Non-pressure chronic ulcer of unspecified heel and midfoot with unspecified severity; R53.1 Weakness; I13.0 Hypertensive heart and chronic kidney disease with heart failure and stage 1 through stage 4 chronic kidney disease, or unspecified chronic kidney disease; I50.30 Unspecified diastolic (congestive) heart failure; N18.32 Chronic kidney disease, stage 3b; I35.0 Nonrheumatic aortic (valve) stenosis; I25.10 Atherosclerotic heart disease of native coronary artery without angina pectoris
CPT/HCPCS: 36415; 36430; 51702; 71045; 80048; 80053; 82274; 82803; 83735; 83880; 84484; 85014; 85018; 85025; 86850; 86900; 86920; 87506; 87635; 93005; 93306; 94660; 96372; 96374; 97110; 97116; 97161; 97166; 97530; 97535; 99285; C9113; G0378; J1644; J1940; J2405; P9016